=== PATIENT | male | born 1995 | race Caucasian/White ===

== ENCOUNTER 2024-08-03 03:45 | Observation (INO) | payer OTHER, SELFPAY ==
[2024-08-03] VITALS (29 sets, daily range): BP systolic 130–157; BP diastolic 81–103; PULSE 46–81; TEMP 36.3–36.7; O2SAT 89–96; BMI 33.9; BMI 34.7
--- NOTE | 2024-08-03 04:09 | ECG_ITS ---
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 Measurements Intervals Trade Rate: 75 P: 63 VT: 148 QRS: 85 QRSD: 100 T: 58 QT: 382 QTc: 411 Interpretive Statements 1100 Sinus rhythm 9110 normal ECG No previous ECG available for comparison Electronically Signed On 08-03-2024 19:57:46 EDT by YADIRA TORO M.D.
[2024-08-03] MEDS: FENTANYL CITRATE/PF 100 MCG/2 ML VIAL IV (04:25)
--- NOTE | 2024-08-03 04:27 | ED_ITS ---
HPI HPI - Back Pain/Injury General Chief Complaint: Back Pain/Injury Stated Complaint: BACK PAIN Time Seen by Provider: 08/03/24 04:04 Source: patient Mode of arrival: walk-in Limitations: no limitations History of Present Illness HPI Narrative: presents complaining of left sided posterior back pain. states present for a couple of weeks. Increased pain this AM. Pain worsens with cough. cough occ productive of thick phlegm. No fever or anterior chest pain. No abdominal pain or nausea. RA pulse ox 89%. Related Data Allergies Allergy/AdvReac Type Severity Reaction Status Date / Time No Known Drug Allergies Allergy Verified 08/03/24 03:57 Opioid HPI Opioid Management Most Recent Opioid Data: 2 No Data to Display Review of Systems 2 ROS0 Status of ROS 10 or more systems reviewed and unremark able except as noted in history and below PFSH PFSH Social History Little interest or pleasure in doing things: not at all Feeling down, depressed, or hopeless: not at all Exam Constitutional Vital Signs, click to edit/add: Last Vital Signs Temp 97.9 F 08/03/24 03:51 Pulse 62 08/03/24 06:00 Resp 21 H 08/03/24 06:00 BP 157/103 H 08/03/24 03:51 Pulse Ox 95 08/03/24 06:00 O2 Del Method Room Air 08/03/24 04:23 Common normals: average body habitus, oriented x3, healthy appearing, alert and well nourished Other: mild to mod. distress related to pain of his back HENNM Common normals: normocephalic and head/scalp atraumatic Eye Common normals: PERRL, EOMs intact bilaterally and conjunctivae normal Chest Common normals: inspection of chest normal and palpation of chest normal Respiratory Common normals: normal respiratory effort, no retractions and no use of accessory muscles Cardio Common normals: regular rate, regular rhythm, S1 normal heart sound and S2 normal heart sound GI Common normals: Normal to inspection, nondistended, normoactive bowel sounds present, soft to palpation and non-tender Back & Pelvis Back image (male): 2 1. tender Extremity Common normals: normal to inspection and full ROM Neuro Common normals: oriented x3, CN's II-XII intact bilaterally, moves all extremities and no focal motor deficits Psych Appearance: grossly normal Course Vital Signs Vital signs: Vital Signs Temperature 97.9 F 08/03/24 03:51 Pulse Rate 81 08/03/24 03:51 Respiratory Rate 20 08/03/24 03:51 Blood Pressure 157/103 H 08/03/24 03:51 Pulse Oximetry 89 L 08/03/24 03:51 Oxygen Delivery Method Room Air 08/03/24 03:51 Temperature 97.9 F 08/03/24 03:51 Pulse Rate 62 08/03/24 06:00 Respiratory Rate 21 H 08/03/24 06:00 Blood Pressure 157/103 H 08/03/24 03:51 Pulse Oximetry 95 08/03/24 06:00 Oxygen Delivery Method Room Air 08/03/24 04:23 MDM - Back Pain/Injury MDM Narrative Medical decision making narrative: patient presents with atypical pain of his left posterior rib cage. Ongoing for 2 weeks but worse this AM. Denies injury. Feels like a Charliehorse cramp in his back. Frequent cough occ productive of thick phlegm. no fever. left posterior chest wall is tender. Pain is also positional. CTA chest neg. and CT abd/pelvis without acute findings. Patient's pulse ox registered at 89% on arrival and he was placed on now d/rajan and patient monitored. Pain improved after dilaudid. patient is still not able to move because of the pain. Did try to have him get of the stretcher and stand but he couldn't do so because of the pain Discussed with hospitalist Dr Avila and she has accepted admission and would like to add a urine drug screen Lab Data Labs: Lab Results 08/03/24 Range/Units 04:05 WBC 10.9 (4.0-11.0) 10^3/uL RBC 5.98 (4.70-6.10) 10^6/uL Hgb 18.6 H (14.0-18.0) g/dL Hct 53.9 (42.0-54.0) % MCV 90.1 (80.0-94.0) fL MCH 31.1 (25.9-34.0) pg MCHC 34.5 (29.9-35.2) g/dL RDW 11.9 (11.0-15.0) % Plt Count 233 (150-450) 10^3/uL MPV 10.9 (9.5-13.5) fL Neut % (Auto) 56.4 (43.0-75.0) % Lymph % (Auto) 30.4 (20.5-60.0) % Saunders % (Auto) 10.4 (1.7-12.0) % Eos % (Auto) 1.6 (0.9-7.0) % Baso % (Auto) 0.8 (0.2-2.0) % Neut # (Auto) 6.1 (1.4-6.5) 10^3/uL Lymph # (Auto) 3.3 (1.2-3.8) 10^3/uL Saunders # (Auto) 1.1 H (0.3-0.8) 10^3/uL Eos # (Auto) 0.2 (0.0-0.7) 10^3/uL Baso # (Auto) 0.1 (0.0-0.1) 10^3/uL Abs Immat Gran (auto) 0.04 H (0.00-0.03) 10^3/uL Imm/Tot Granulo (auto) 0.4 (0.0-0.5) % Sodium 137 (136-145) mmol/L Potassium 3.8 (3.5-5.1) mmol/L Chloride 101 (98-107) mmol/L Carbon Dioxide 23.2 (21.0-32.0) mmol/L Anion Gap 16.6 BUN 5.0 L (7.0-18.0) mg/dL Creatinine 0.97 (0.70-1.30) mg/dL Est GFR ( Amer) >60 (>=60 mL/min/1.73m^2) Est GFR (Non-Af Amer) >60 (>=60 mL/min/1.73m^2) BUN/Creatinine Ratio 5.2 Glucose 155 H (74-106) mg/dL Lactate 1.9 (0.4-2.0) mmol/L Calcium 9.7 (8.5-10.1) mg/dL Total Bilirubin 0.4 (0.2-1.0) mg/dL AST 21 (15-37) U/L ALT 38 (16-63) U/L Alkaline Phosphatase 111 (46-116) U/L Troponin I High Sens 6.1 (4.0-76.1) pg/mL Total Protein 8.2 (6.4-8.2) g/dL Albumin 3.8 (3.4-5.0) g/dL Globulin 4.4 g/dL Albumin/Globulin Ratio 0.9 Lipase 32.0 (16.0-77.0) U/L Discharge Plan Discharge Chief Complaint: Back Pain/Injury Clinical Impression: Intractable back pain Patient Disposition: Admitted as Observation Print Language: Ecuadorean Referrals: Physician,Non-Staff, MD [Primary Care Provider] - 1 week
[2024-08-03 04:35] LABS: Basophils Absolute Auto 0.1 10^3/uL (0.0-0.1); Basophils Percent Auto 0.8 % (0.2-2.0); Eosinophils Absolute Auto 0.2 10^3/uL (0.0-0.7); Eosinophils Percent Auto 1.6 % (0.9-7.0); Hematocrit 53.9 % (42.0-54.0); Hemoglobin 18.6 g/dL (14.0-18.0); Immature Granulocytes Abs Auto 0.04 10^3/uL (0.00-0.03); Immature Granulocytes Pct Auto 0.4 % (0.0-0.5); Lymphocytes Absolute Auto 3.3 10^3/uL (1.2-3.8); Lymphocytes Percent Auto 30.4 % (20.5-60.0); Mean Corpuscular HGB Conc 34.5 g/dL (29.9-35.2); Mean Corpuscular Hemoglobin 31.1 pg (25.9-34.0); Mean Corpuscular Volume 90.1 fL (80.0-94.0); Mean Platelet Volume 10.9 fL (9.5-13.5); Monocytes Absolute Auto 1.1 10^3/uL (0.3-0.8); Monocytes Percent Auto 10.4 % (1.7-12.0); Neutrophils Absolute Auto 6.1 10^3/uL (1.4-6.5); Neutrophils Percent Auto 56.4 % (43.0-75.0); Platelet Count 233 10^3/uL (150-450); Red Blood Count 5.98 10^6/uL (4.70-6.10); Red Cell Distribution Width 11.9 % (11.0-15.0); White Blood Count 10.9 10^3/uL (4.0-11.0)
[2024-08-03 04:51] LABS: Anion Gap 16.6
[2024-08-03 04:53] LABS: Alanine Aminotransferase 38 U/L (16-63); Albumin Globulin Ratio 0.9; Albumin Level 3.8 g/dL (3.4-5.0); Alkaline Phosphatase 111 U/L (46-116); Aspartate Amino Transferase 21 U/L (15-37); BUN Creatinine Ratio 5.2; Bilirubin Total 0.4 mg/dL (0.2-1.0); Calcium 9.7 mg/dL (8.5-10.1); Carbon Dioxide 23.2 mmol/L (21.0-32.0); Chloride 101 mmol/L (98-107); Estimated GFR (African America >60 (>=60 mL/min/1.73m^2); Estimated GFR (Non-African Ame >60 (>=60 mL/min/1.73m^2); Globulin 4.4 g/dL; Glucose 155 mg/dL (74-106); Lactate/Lactic Acid 1.9 mmol/L (0.4-2.0); Potassium 3.8 mmol/L (3.5-5.1); Sodium 137 mmol/L (136-145); Total Protein 8.2 g/dL (6.4-8.2); Troponin I High Sensitivity 6.1 pg/mL (4.0-76.1)
[2024-08-03] MEDS: HYDROMORPHONE HCL 1 MG/ML CARTRIDGE IV (05:15)
[2024-08-03 07:28] LABS: Bilirubin Urine NEGATIVE (NEGATIVE); Blood Urine NEGATIVE (NEGATIVE); Clarity Urine CLEAR (CLEAR); Color Urine YELLOW (YELLOW); Glucose Urine UA NEGATIVE (NEGATIVE); Ketones Urine NEGATIVE (NEGATIVE); Leukocyte Esterase Urine NEGATIVE (NEGATIVE); Nitrite Urine NEGATIVE (NEGATIVE); Protein Urine TRACE mg/dL (NEG/TRACE); Urobilinogen Urine 0.2 EU/dL (0.2-1.0)
[2024-08-03 07:40] LABS: Bacteria Urine TRACE #/HPF (NONE SEEN); Cast Seen? NONE SEEN #/LPF (NONE SEEN); Crystals Seen? None Seen #/HPF (None Seen); Mucus Urine NONE SEEN (NONE SEEN); RBC Urine NONE SEEN #/HPF (0-2); Squamous Epithelial Cell Urine RARE #/LPF (NONE/RARE); Urine Culture Indicated NO; WBC Urine NONE SEEN #/HPF (NONE SEEN)
[2024-08-03 07:44] LABS: Cannabinoid Screen Urine POSITIVE (NEGATIVE); Cocaine Screen Urine NEGATIVE (NEGATIVE); Methamphetamines Screen Urine NEGATIVE (NEGATIVE); Opiate Screen Urine POSITIVE (NEGATIVE); Phencyclidine Screen Urine NEGATIVE (NEGATIVE)
[2024-08-03 07:45] LABS: Amphetamine Screen Urine NEGATIVE (NEGATIVE); Barbiturates Screen Urine NEGATIVE (NEGATIVE); Benzodiazepines Screen Urine NEGATIVE (NEGATIVE); Buprenorphine Screen Urine NEGATIVE (NEGATIVE); Methadone Screen Urine NEGATIVE (NEGATIVE); Oxycodone Screen Urine POSITIVE (NEGATIVE); Tricyclic Antidepressant Urine NEGATIVE (NEGATIVE)
--- NOTE | 2024-08-03 08:52 | P.HP_ITS ---
HPI H&P: HPI History of Present Illness Chief complaint: BACK PAIN Narrative: Patient is a 28 y.o male with past medical history smoking 1ppd, Gout and recent right hand surgery who presented to the ER today with left back/rib/side pain. Patient states he had a traumatic amputation of the tip of his 3rd digit and 5th digit of this right hand at [facility] about 1 month ago after accidental trauma from a table saw. He has been attending follow up's with the hand surgeon at [facility] and has been on Oxycodone since surgery. It appears they have been weaning him down slowly and now has been taking 5mg q12 hours. 2 weeks ago he started coughing and noticed a pain in the left side of his back that would come and go. Last night he coughed and felt a pop and the pain in his left side was so bad he had to come to the ER. Patient was given Fentanyl and Dilaudid. He had CTA of the chest and CT of the abdomen/pelvis which showed no acute processes. WBC's 10.9, hb 18.6, cr 0.97, trop 6.1, ESR 11, CRP normal Uric Acid 11.3. UA normal, UDS positive for oxycodone and THC. His pain could not be controlled in the ER so they requested he be admitted for intractable pain. Patient's brother and mother are present at the time of admission. he denies trauma to his back. recent cold symptoms and a cough which is when he has the most pain is with coughing. No shortness of breath, no fever or chills, no rashes. Pain is located Left lateral ribs 7-10. Quality: Safe Use of Opioids Is the patient undergoing opioid medication assisted treatment that includes methadone, buprenorphine, and/or naltrexone: No Opioid HPI Opioid Management Most Recent Pain and Opioid Data: Last Pain Scale 9 08/03/24 10:17 08/03/24 Last Pain Assessment 08/03/24 10:00 Last MAR Pain Assessment 08/03/24 10:17 Ur Phencyclidine Scrn Negative (NEGATIVE) 08/03/24 07:11 0412/20 Review of Systems ROS Narrative ROS: a complete review of systems were reviewed with patient and are positive as below or listed in History of Chief Complaint. General: no fever, chills, night sweats Head: no headache, trauma, visual changes, nausea or vomiting Skin: no reported rashes, itching or sores Eyes: no blurriness of vision Ears: no reported hearing loss, vertigo, earache, or tinnitus Throat: no sore throat, hoarseness, swelling of neck, or tongue pain Heart: no chest pain Lungs: no shortness of breath but cough GI: no diarrhea or vomiting/nausea Urinary: no urinary urgency, frequency or pain Neuro: no numbness or tingling HEM: no bleeding issues or bruising ENDO: no thyroid problems Psych: no anxiety or depression PFSH PFS Medical History (Updated 08/03/24 @ 08:56 by Maria Teresa Avila DO) Gout ?M10.9 - Gout, unspecified (ICD-10) Finger amputation, traumatic ?S68.119A - Complete traumatic metacarpophalangeal amputation of unspecified finger, initial encounter (ICD-10) Hypertension ?I10 - Essential (primary) hypertension (ICD-10) Social History Little interest or pleasure in doing things: not at all Feeling down, depressed, or hopeless: not at all Meds Home Medications and Allergies Home Medications ?Medication ?Instructions ?Recorded ?Confirmed ?Type allopurinol 100 mg tablet 100 mg PO DAILY 08/03/24 History gabapentin 300 mg capsule 300 mg PO TID 08/03/24 History ibuprofen 800 mg tablet 800 mg PO Q8H PRN pain 08/03/24 History lisinopril 30 mg tablet 30 mg PO DAILY 08/03/24 History oxycodone 5 mg tablet 5 mg PO Q12H PRN pain 08/03/24 08/03/24 History Allergies Allergy/AdvReac Type Severity Reaction Status Date / Time No Known Drug Allergies Allergy Verified 08/03/24 03:57 Exam Narrative Exam Narrative: General: Patient is alert, and oriented to person, place and time but appears in some distress due to pain Skin: no visible rashes, or ulcers Head: atraumatic, acephalic Eyes: PERRLA, no nystagmus present, conjunctiva clear, no scleral icterus Ears: normal gross auditory acuity Heart: Normal rate and rhythm, no murmurs/rubs/gallops Lungs: no audible wheezes, crackles and normal breath sounds all lung briones; pain is reproducible with palpation of the left trap/lat and lateral ribs 7-10 Abdomen: Normal audible bowel sounds, no distension, No palpable masses, no organomegaly, no rebound/guarding/ or rigidity Musculoskeletal:no swelling bilateral lower extremities Neuro: CN II-X grossly intact Constitutional Vital Signs, click to edit/add: Last Vital Signs Temp 97.9 F 08/03/24 03:51 Pulse 50 L 08/03/24 08:06 Resp 18 08/03/24 08:06 BP 149/93 H 08/03/24 08:06 Pulse Ox 95 08/03/24 08:06 O2 Del Method Nasal Cannula 08/03/24 08:33 O2 Flow Rate 2 08/03/24 08:06 Results Labs Labs: Short CBC 08/03/24 Range/Units 04:05 WBC 10.9 (4.0-11.0) 10^3/uL Hgb 18.6 H (14.0-18.0) g/dL Hct 53.9 (42.0-54.0) % Plt Count 233 (150-450) 10^3/uL BMP 08/03/24 04:05 Sodium 137 Potassium 3.8 Chloride 101 Carbon Dioxide 23.2 BUN 5.0 L Creatinine 0.97 Glucose 155 H Calcium 9.7 Liver Function 08/03/24 Range/Units 04:05 Total Bilirubin 0.4 (0.2-1.0) mg/dL AST 21 (15-37) U/L ALT 38 (16-63) U/L Alkaline Phosphatase 111 (46-116) U/L Albumin 3.8 (3.4-5.0) g/dL Urine 08/03/24 Range/Units 07:11 Urine Color Yellow (YELLOW) Urine Clarity Clear (CLEAR) Urine pH 5.0 (5.0-9.0) Ur Specific [place] 1.010 (1.005-1.025) Urine Protein Trace (NEG/TRACE) mg/dL Urine Glucose (UA) Negative (NEGATIVE) mg/dL Assessment and Plan Assessment and Plan (1) Intractable back pain: Assessment and Plan: Will check chest x-ray with dedicated left ribs Xray. Lidocaine patch applied, start Flexeril, Solumedrol 60mg q8 hours and Given IV Toradol 30mg x 1. He received Fentanyl and Dilaudid in the ER. I have also scheduled his oxycodone. I discussed with patient normal findings of CT and think his pain is most likely musculoskeletal or costochondral in nature. His pain tolerance is lower and need for medication higher given Narcotic use. PT eval once pain is better under control. (2) Hypertension: Assessment and Plan: monitor, will restart lisinopril if needed. Qualifiers: Hypertension type: primary hypertension Qualified Code(s): I10 - Essential (primary) hypertension (3) Gout: Assessment and Plan: only takes allopurinol with flare. Normal ESR and CRP, uric acid 11.3; steroids should help this as well. Qualifiers: Chronicity: chronic Gout etiology: unspecified cause Gout site: unspecified site Presence of tophus: without tophus Qualified Code(s): M1A.9XX0 - Chronic gout, unspecified, without tophus (tophi) Plan Patient is a full code Patient is observation status and expected to stay 1-2 days to treat his pain
[2024-08-03 09:09] LABS: C Reactive Protein <0.50 mg/dL (<=0.50); Uric Acid 11.3 mg/dL (3.5-7.2)
[2024-08-03 09:19] LABS: Erythrocyte Sedimentation Rate 11 mm/hr (<=15)
[2024-08-03] MEDS: LACTATED RINGER'S SOLUTION 1,000 ML 125 ML IV (10:16)
[2024-08-03] MEDS: LIDOCAINE 5% PATCH 1 PATCH TOPICAL (10:16)
[2024-08-03] MEDS: KETOROLAC TROMETHAMINE 30 MG/ML VIAL IVP ×2 (10:17→16:30)
[2024-08-03] MEDS: CYCLOBENZAPRINE HCL 10 MG TABLET PO (10:17)
[2024-08-03] MEDS: ACETAMINOPHEN 500 MG TABLET 1000 MG PO ×2 (10:17→19:54)
--- NOTE | 2024-08-03 11:31 | CM.NOTE ---
Rounds made with Dr. Avila. Dr. Avila reviews labs/Radiology findings. Discusses plan of care. No discharge today.
[2024-08-03] MEDS: OXYCODONE HCL 5 MG TABLET PO ×2 (12:14→23:11)
[2024-08-03] MEDS: METHYLPREDNISOLONE SOD SUCC PF 40 MG/ML VIAL IVP ×3 (12:14→23:10)
[2024-08-03] MEDS: ORPHENADRINE 60 MG/2 ML VIAL IV ×2 (13:32→23:11)
[2024-08-03] MEDS: BENZONATATE 100 MG CAPSULE PO ×2 (13:32→23:11)
--- NOTE | 2024-08-03 15:00 | SWNOTE1 ---
Physical therapy eval on hold today. SW to check tomorrow and assess for any needs for patient.
[2024-08-03] MEDS: AZITHROMYCIN 500 MG in 0.9 % SODIUM CHLORIDE 250 ML 250 MG IV (16:30)
--- NOTE | 2024-08-03 18:46 | PC.NURSE ---
patient sitting up in bed eating his dinner. no signs of distress at this time.
[2024-08-03] MEDS: NICOTINE 21 MG PATCH.TD24 TD (20:35)
[2024-08-04 04:00] VITALS: BP 135/85; PULSE 43; TEMP 36.3; O2SAT 94
[2024-08-04] MEDS: KETOROLAC TROMETHAMINE 30 MG/ML VIAL IVP ×2 (04:12→13:08)
[2024-08-04] MEDS: METHYLPREDNISOLONE SOD SUCC PF 40 MG/ML VIAL IVP ×2 (05:26→11:36)
[2024-08-04 07:37] VITALS: BP 140/86; PULSE 43; TEMP 37; O2SAT 92
[2024-08-04] MEDS: LIDOCAINE 5% PATCH 1 PATCH TOPICAL (08:09)
--- NOTE | 2024-08-04 08:09 | P.DS_ITS ---
DS: Providers Provider Date of admission: 08/03/24 08:23 Primary care physician: Non-Staff PhysicianMD Attending physician on admission: Maria Teresa Avila Consults: 08/03/24 11:03 Physical Therapy Eval and Treat Routine Reason for consultation: left back/rib pain/ muscle spasm Has provider been notified: Yes Discharging clinician: Maria Teresa Avila DS: Diagnosis Discharge Diagnosis (1) Intractable back pain: (2) Acute bronchitis: Qualifiers: Bronchitis organism: unspecified organism Qualified Code(s): J20.9 - Acute bronchitis, unspecified (3) Hypertension: Qualifiers: Hypertension type: primary hypertension Qualified Code(s): I10 - Essential (primary) hypertension (4) Gout: Qualifiers: Chronicity: chronic Gout etiology: unspecified cause Gout site: unspecified site Presence of tophus: without tophus Qualified Code(s): M1A.9XX0 - Chronic gout, unspecified, without tophus (tophi) DS: Summary Hospital Course Hospital Course: Patient is a 28 y.o male with past medical history smoking 1ppd, Gout and recent right hand surgery who presented to the ER with left back/rib/side pain. Patient states he had a traumatic amputation of the tip of his 3rd digit and 5th digit of this right hand at [facility] about 1 month ago after accidental trauma from a table saw. He has been attending follow up's with the hand surgeon at [facility] and has been on Oxycodone since surgery. It appears they have been weaning him down slowly and now has been taking 5mg q12 hours. 2 weeks ago he started coughing and noticed a pain in the left side of his back that would come and go. Last night he coughed and felt a pop and the pain in his left side was so bad he had to come to the ER. Patient was given Fentanyl and Dilaudid. He had CTA of the chest and CT of the abdomen/pelvis which showed no acute processes. WBC's 10.9, hb 18.6, cr 0.97, trop 6.1, ESR 11, CRP normal Uric Acid 11.3. UA normal, UDS positive for oxycodone and THC. His pain could not be controlled in the ER so they requested he be admitted for intractable pain. he denies trauma to his back. recent cold symptoms and a cough which is when he has the most pain is with coughing. No shortness of breath, no fever or chills, no rashes. Pain is located Left lateral ribs 7-10. X-ray chest some possible inflammatory vs infectious markings but rib films negative for acute fracture. Patient was treated with Toradol IV, Flexeril but didn't work so this was stopped, IV Norflex given, Lidocaine patch. Ice packs and Kpad. I also treated his bronchitis with Solumedrol IV, Azithromycin, Tessalon and Robitussin for cough. repeat labs this morning were stable, troponin negative. WBC elevated due to steriod use. I have prescribed him Rx for outpatient PT. He may use ice and warm compresses to the area. I have prescribed Baclofen, medrol dosepack and Zpak. Along with promethazine/DM for cough. He has appointment made with Dr. Pastor as outpatient. His pain is improved but not completely resolved as I would expect. It should continue to improve over the next 1-2 weeks. Most likely diagnosis is Musculoskeletal pain/spasm/costochondritis from cough. Patient may return to the ER with any worsening signs or symptoms. Vitals stable, afebrile. Status at Discharge Functional status at discharge: independent ambulation Overall status at discharge: patient is progressing back to baseline Time Spent with Patient Time attestation: Total time spent providing and/or coordinating discharge services: Time spent: greater than 30 minutes Exam Narrative Exam Narrative: General: Patient is alert, and oriented to person, place and time Skin: no visible rashes, or ulcers Head: atraumatic, acephalic Eyes: PERRLA, no nystagmus present, conjunctiva clear, no scleral icterus Ears: normal gross auditory acuity Heart: Normal rate and rhythm, no murmurs/rubs/gallops Lungs: no audible wheezes, crackles and normal breath sounds all lung briones; pain is reproducible with palpation of the left trap/lat and lateral ribs 7-10 Abdomen: Normal audible bowel sounds, no distension, No palpable masses, no organomegaly, no rebound/guarding/ or rigidity Musculoskeletal:no swelling bilateral lower extremities Neuro: CN II-X grossly intact Constitutional Vital Signs, click to edit/add: Last Vital Signs Temp 98.6 F 08/04/24 07:37 Pulse 43 L 08/04/24 07:37 Resp 14 04/09/25 07:37 BP 140/86 08/04/24 07:37 Pulse Ox 92 L 08/04/24 07:37 O2 Del Method Room Air 08/04/24 07:37 O2 Flow Rate 2 08/03/24 09:20 DS: Data Data Completed and Pending Labs on day of discharge: Labs from last 24 hours 08/03/24 04:05 ESR 11 Uric Acid 11.3 H C-Reactive Protein <0.50 Discharge Plan Discharge Disposition: Home, Self-Care Condition: Fair Discharge Medications: New azithromycin [Zithromax Z-Pee] 250 mg tablet See Rx Instructions .ROUTE .COMPLEX Qty: 6 0RF Rx Instructions: For 250 mg dose pack: take 500 mg today (day 1), then 250 mg for 4 days (days 2-5) methylprednisolone [Medrol (Pee)] 4 mg tablets,dose pack 4 mg PO .as directed Qty: 21 0RF Rx Instructions: Take dosepak as directed on package promethazine-DM 6.25-15 mg/5 mL syrup 5 ml PO Q6H PRN (Reason: cough) 5 Days Qty: 100 0RF baclofen 10 mg tablet 10 mg PO Q8H 5 Days Qty: 15 0RF Continued allopurinol 100 mg tablet 100 mg PO DAILY lisinopril 30 mg tablet 30 mg PO DAILY gabapentin 300 mg capsule 300 mg PO TID oxycodone 5 mg tablet 5 mg PO Q12H PRN (Reason: pain) Held ibuprofen 800 mg tablet 800 mg PO Q8H PRN (Reason: pain) Hold Instructions: Resume on 08/11/24. Activity: increase activity as tolerated Activity Detail: May alternate ice/heat to the sore area on back; I have provided written Prescription for Physical Therapy Diet: advance to your usual diet Print Language: Swedish Patient Instructions: Back Pain (GEN) Forms: Portal Instructions Follow Up Appointments: August 11 @ 11:15am with Dr. Pastor [address] [facility] [phone]
[2024-08-04] MEDS: ORPHENADRINE 60 MG/2 ML VIAL IV (08:17)
[2024-08-04 08:19] LABS: Basophils Percent Auto 0.2 % (0.2-2.0); Hematocrit 54.5 % (42.0-54.0); Hemoglobin 18.6 g/dL (14.0-18.0); Immature Granulocytes Abs Auto 0.05 10^3/uL (0.00-0.03); Immature Granulocytes Pct Auto 0.3 % (0.0-0.5); Lymphocytes Absolute Auto 0.9 10^3/uL (1.2-3.8); Lymphocytes Percent Auto 5.6 % (20.5-60.0); Mean Corpuscular HGB Conc 34.1 g/dL (29.9-35.2); Mean Corpuscular Hemoglobin 31.5 pg (25.9-34.0); Mean Corpuscular Volume 92.4 fL (80.0-94.0); Monocytes Absolute Auto 0.4 10^3/uL (0.3-0.8); Monocytes Percent Auto 2.7 % (1.7-12.0); Neutrophils Percent Auto 91.2 % (43.0-75.0); Platelet Count 222 10^3/uL (150-450); Red Cell Distribution Width 11.7 % (11.0-15.0); White Blood Count 15.4 10^3/uL (4.0-11.0)
[2024-08-04 08:36] LABS: Alanine Aminotransferase 28 U/L (16-63); Albumin Globulin Ratio 0.9; Albumin Level 3.5 g/dL (3.4-5.0); Alkaline Phosphatase 97 U/L (46-116); Anion Gap 11.1; Aspartate Amino Transferase 14 U/L (15-37); BUN Creatinine Ratio 12.6; Bilirubin Total 0.7 mg/dL (0.2-1.0); Calcium 9.7 mg/dL (8.5-10.1); Chloride 103 mmol/L (98-107); Estimated GFR (African America >60 (>=60 mL/min/1.73m^2); Estimated GFR (Non-African Ame >60 (>=60 mL/min/1.73m^2); Globulin 4.1 g/dL; Glucose 219 mg/dL (74-106); Potassium 4.1 mmol/L (3.5-5.1); Sodium 140 mmol/L (136-145); Total Protein 7.6 g/dL (6.4-8.2); Troponin I High Sensitivity <4.0 pg/mL (4.0-76.1)
--- NOTE | 2024-08-04 10:37 | CM.NOTE ---
Rounds made with Dr. Avila, education provided regarding lab work and admission diagnosis. Pt will discharge to home today and provided with Physical therapy order for outpatient therapy for ongoing back pain.
[2024-08-04 11:32] VITALS: O2SAT 93
[2024-08-04 11:47] VITALS: BP 155/81; PULSE 62; TEMP 36.5; O2SAT 96
[2024-08-04] MEDS: OXYCODONE HCL 5 MG TABLET PO (12:00)
--- NOTE | 2024-08-05 16:07 | CM.DCFOLLOWU ---
Person spoke with: patient How are you feeling? in a lot of pain How is your pain? in a lot of pain Did you understand your discharge instructions? yes Do you have any questions about your discharge instructions? no Were you given any prescriptions at discharge?yes Were you able to get your prescriptions filled?yes Do you understand how to take your medications as ordered? yes, voiced he was not discharged on anything for pain. Advised to call Dr. Pastor's office to see if they can move up his follow up apt. Advised to come to ED if pain becomes worse Do you have any questions about your follow up appointment and do you plan to keep your follow up appointment? no questions, follow up reviewed Is there anything else that you would like to discuss?no Questions/Comments/Concerns/Other:none
== END 2024-08-04 13:47 | disposition home or self-care (01) ==
LOC: ER 08:36 → MS 08:38
PROVIDERS: Internal Medicine; Admitting Provider Family Medicine; Emergency Provider Emergency Medicine; Visit Provider Family Medicine
DX: M54.9 Dorsalgia, unspecified (principal); J20.9 Acute bronchitis, unspecified; F17.210 Nicotine dependence, cigarettes, uncomplicated; R05.9 Cough, unspecified; I10 Essential (primary) hypertension; M1A.9XX0 Chronic gout, unspecified, without tophus (tophi); Z89.021 Acquired absence of right finger(s); Z79.899 Other long term (current) drug therapy
CPT/HCPCS: 36415; 71101; 71275; 74177; 80053; 80307; 81001; 83605; 83690; 84484; 84550; 85025; 85652; 86140; 93005; 94761; 96365; 96366; 96375; 96376; 97161; 99285; 99406; G0378; J0456; J1171; J1885; J2360; J2919; J3010; Q9967

== ENCOUNTER 2024-10-22 19:41 | Emergency (ER) | payer OTHER, SELFPAY ==
--- OUTSIDE RECORDS SUMMARY | 2024-10-22 19:45 | XMS_ITS | Patient Health Record ---
Author Organization [facility] [place] Address [address] [place] [address] Care Team Providers Care Precision Instrument Maker Name Role Phone Serjio Pastor Primary Care Provider [phone] Reason For Referral No Information Problems Problem Type SNOMED Code ICD Code Onset Dates Problem Status W/U Status Risk Notes Problem Hypertension (06538077) Hypertension (I10) Active confirmed Problem Gout (81229714) Gout (M10.9) Active confirmed Plan Of Treatment No Information Insurance Providers Payer Name Payer Address Payer Phone Subscriber Number Group Number Insured Name Patient Relationship to Insured Coverage Start Date Coverage End Date O [address] [place], [place] [id number] STAN CASIANO Self - patient is the insured
--- OUTSIDE RECORDS SUMMARY | 2024-10-22 19:46 | XMS_ITS | CCD ---
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 finger, initial encounter [S68.119A] * Hand laceration involving tendon, right, subsequent encounter [S61.411D, S66.921D] Postoperative Diagnosis: * Traumatic amputation of finger, initial encounter [S68.119A] * Hand laceration involving tendon, right, subsequent encounter [S61.411D, S66.921D] Procedures: Right small finger hardware removal Surgeon(s): Surgeon(s): Cely Puente MD Staff: Scrub: Maryam Mao Manager Dental Nurse: Lidya Williamson RN Brewmaster: Emelina Diego DO; Cristopher Kaur DMD, MD Anesthesia: Consult Anesthesiologist: Salinas Saldaña MD SALES SUPPORT ENGINEER: Jessica Aguilar APRN-CRNA Anesthesia Student: Carolina Tamez Specimen(s): * No specimens in log * Estimated Blood Loss: less than 5 cc Lines/Drains: Peripheral IV Access: 07/23/24 1249 22 gauge Left;Posterior Hand (Active) Site Assessment WNL;Dressing intact 07/23/24 1249 Infusion Status Port #1 Capped;Patent;Positi ve blood return 07/23/24 1249 Temporarily Retained Foreign Object: No Location: Object: Anticipated removal date: Findings: Normal Complications: None Status at end of surgery: Stable Activity: Ad Jesica Surgical wound class: Yes, wound was clean. Patient Class: Outpatient Surgery. Is this a patient scheduled as an outpatient that needs to be admitted as an inpatient? No Dr. Puente was present in the OR for the critical portion of the procedure and procedure sign-out. Signed by Emelina Diego DO 07/23/2024 2:21 PM Normal [facility] OP Noteon 07-23-2024 French Translator Authentication Interface Message Text OPERATIVE NOTE Plastic Surgery Name: Tu Casiano CSN: [id number] Surgical Age: [age] year old Date of : 1995 Date of Surgery: 07/23/2024 Case Length: 0 Hr 21 Min 52 Sec Event Time In In Facility 1217 In Pre-op 1223 Surgeon Available 1250 Pre-op Nursing Complete 1245 Out of Pre-op Setup Start 1344 Setup End 1344 In Room 1400 Anesthesia Start 1400 Anesthesia Release 1408 Anesthesia Extubation Procedure Start 1413 Procedure Closing 1419 Procedure End 1420 Out of Room 1421 Cleanup Start Cleanup Complete OR Recovery Start In PACU I Anesthesia Finish 1421 PACU Boarder Start Out of PACU I In PACU II Out of PACU II Procedural Care Complete Surgeon(s): Primary: Cely Puente MD Plaster Foreman Surgeon: Scrub: Maryam Mao Manager Dental Nurse: Lidya Williamson RN Brewmaster: Emelina Diego DO; Cristopher Kaur DMD, MD Pre-Op Diagnosis: Pre-op Diagnosis * Traumatic amputation of finger, initial encounter [S68.119A] * Hand laceration involving tendon, right, subsequent encounter [S61.411D, S66.921D] Post-op Diagnosis * Traumatic amputation of finger, initial encounter [S68.119A] * Hand laceration involving tendon, right, subsequent encounter [S61.411D, S66.926W] Post Op Diagnosis: Same as preoperative diagnosis. Procedure(s): Surgical CPTs Procedures REMOVAL, IMPLANT; DEEP Right small finger hardware removal Implants: * No implants in log * Anesthesia: Sedation, local anesthetics Indication for Procedure: Patient is a 28 year old male with history of traumatic saw injury to the right hand requiring right long finger DIP revision amputation, and right small finger internal fixation with five total K-wires on 06/09/24. Patient has been having significant pain of his right small finger, requiring narcotic pain medication. Presenting today for hardware removal. Description of Procedure: The patient was met in the preoperative holding area, where risks, benefits and alternatives of the procedure were discussed. The patient expressed understanding and elected to proceed with the planned procedure. Patient was transferred to the operative theater where he was positioned in the supine position. Sedation by anesthesia was induced without difficulty. Patient was subsequently prepped with Hibiclens and draped in the usual sterile fashion. A final surgical time-out was performed prior to incision, to confirm correct patient, procedure, and surgical site. Attention was turned to the right small finger. Two of the K-wires were protruding out from the proximal phalanx, which were removed without resistance. X-ray was taken to confirm the location of the last K-wire in the small finger. It was accessed from the distal phalanx over the dorsum by making a small puncture incision, and removed without resistance. X-ray was taken again to confirm that no hardware remained in the small finger. 6cc of 0.5% marcaine was used for a digital block of the right small finger. At the conclusion of the procedure, the patient was awakened from anesthesia without difficulty. he was then transported to the PACU in stable condition. All instrument and sponge counts were correct. Findings: Total of 3 K-wires removed. Specimen(s): None * No specimens in log * Estimated blood loss: 0 cc IV Fluids: 0 cc Urine Output: N/A Drains: None Complications: None Patient Class: Outpatient Surgery Wound Class: Yes, wound was clean. Clean Clean-contaminated (lack unusual contamination; enter respiratory, GI, , genital tracts, but under controlled conditions) Contaminated (open, fresh, accidental wounds; break in sterile technique or gross spillage from GI tract, or an incision in which acute, non-purulent inflammation is encountered) Dirty-Infected (secondary to improperly cared for traumatic wounds; devitalized tissue; purulent drainage) Status at end of surgery: Stable The Attending Surgeon Dr. Puente was present for all critical parts of the procedure. Emelina Diego, DO Normal [facility] PAT Call Historyon French Translator Authentication Interface Message Text Telephone History Tu Casiano, [id number] 07/22/2024 Patient was identified by name and date of . Needs: Physical, Neck Circumference, and Stop bang 3, consider EKG on DOS. If the patient becomes ill prior to procedure or surgery, they are to call their provider or surgeon's office directly. Jadyn Russell RN 28 year old 245 lbs 6' 0 Date of Surgery: 07/23/24 Surgeon: Rica Type of Surgery: REMOVAL, HARDWARE, HAND Right HISTORY OF PRESENT ILLNESS: telephone PAT History completed prior to upcoming procedure with Dr. Puente on 07/23/24 at [place] Location ED Visit (05/30/2024) Partial Note- Hand injury/table saw 28 year old male right-hand dominant presenting to the ED for multiple lacerations to his right hand after table saw accident.. Patient endorses he was using a table saw when he accidentally cut his 3rd and 5th digits. Patient endorses some numbness and tingling to the digits as well as severe pain. He was having trouble moving the 5th digit. Patient was transferred here from [facility] for surgical consultation. A/P 28-year-old male with a past medical history listed above who presents to the emergency department as a transfer from [facility] for hand surgery consult. On initial presentation patient was resting comfortably in his hemodynamically stable and afebrile. Outside images were reviewed which is consistent with traumatic subluxation of the third distal interphalangeal joint with partial amputation of the third distal phalanx occurring just distal to the base and traumatic subluxation of the fifth proximal interphalangeal joint with fractures of the proximal phalangeal head and intermediate phalangeal base. Patient received updated tetanus, IV antibiotics and pain control prior to evaluation at [facility]. Hand surgery was consulted, evaluated the patient at bedside, and repaired the laceration as well as splinted the injury at bedside. Recommended follow up with Plastic surgery Clinic as well as antibiotics. Patient was given short course of oxycodone for pain. Patient was pain was well-controlled in the emergency department. Workup and findings were discussed with the patient and all questions were answered. Plastic Surgery Consult 28 year old RHD male with multiple injuries to right hand after working at home with table saw. Including partial amputation of DP of RMF, laceration of the zone 2 extensor tendon of RSF with accompanying MP fracture. Superficial abrasion of tip of RRF. - revision amputation of RMF at bedside - laceration repair of RSF injury - splinting - will require surgical exploration and repair of structures as outpatient - Follow up with Dr. Puente's office for surgery (schedulers messaged) - keflex for discharge - Dispo: per ED STOP-BANG Row Name 07/22/24 0838 History of sleep apnea? No Snoring No Tired/Fatigued Yes Observed Apnea No Pressure: Hypertension Yes BMI greater than 35 0 Age greater than 50 0 Neck circ greater than 40cm (15.75 ) Unable to Assess Gender male? 1 Score 3 The patient either has diagnosed sleep apnea or is a STOP-BANG score >/=3. If +STOP-BANG, the patient was educated that sleep apnea may mean that they do not breathe well when they sleep and that there is no way to know for sure without testing. The patient was educated in lay terms that there is an increased risk of hypertension, coronary artery disease, stroke, and with sleep apnea. They may also have decreased cognition, quality of life, and more motor vehicle and work accidents. They were encouraged to discuss the topic further with their primary care provider if they had one. Any patient questions were addressed. EXERCISE CAPACITY: 4-10 mets ALLERGIES: Patient has no known allergies. PREVIOUS ANESTHETIC EXPERIENCES AND INTUBATION HISTORY: Per Patient when had last surgery was given Fentanyl and per patient stopped breathing FAMILY HISTORY OF ANESTHETIC COMPLICATIONS: No PAST MEDICAL HISTORY: Past Medical History: Diagnosis Date Current smoker 06/01/2024 Comment on above: Added secondary to documentation in Social History. Essential (primary) hypertension Fracture of cervical vertebra (HCC) 03/14/2016 Gouty arthritis of right ankle 06/01/2024 Hand laceration involving tendon, right, subsequent encounter 05/30/2024 Open fracture of middle phalanx of finger 05/29/2024 PROBLEM LIST: Patient Active Problem List: Hand laceration involving tendon, right, subsequent encounter [S61.411D, S66.921D] Current smoker [F17.200] Fracture of cervical vertebra (HCC) [S12.9XXA] Gouty arthritis of right ankle [M10.9] Open fracture of middle phalanx of finger [S62.629B] Impaired function of upper extremity [R68.89] Amputation, finger, traumatic [S68.119A] Past Medical History and Review of Systems Pulmonary (+) a smoker (In process of quitting) Comment: Denies SOB, wheezes, fever, chills, inc (more content not included)... Normal [facility] Telephone Encounteron 2024 French Translator Authentication Interface Message Text Pt called to check status of refill request. Normal [facility] XR FINGERS RIGHT 3 VIEWSon 0 07-11-2024 XR FINGERS RIGHT 3 VIEWS EXAMINATION: XR FINGERS RIGHT 3 VIEWSPRO/RT/Right Fifth Digit 07/09/2024 01:29 PM CLINICAL HISTORY: fx f/u ASSOCIATED DIAGNOSIS: Traumatic amputation of finger, initial encounter Hand laceration involving tendon, right, subsequent encounter Hand laceration involving tendon, right, subsequent encounter ORDERING PROVIDER: CHARLENE NICK TECHNOLOGISTS NOTE: COMPARISON: XR HAND RIGHT 2 VIEWS 05/30/2024, 5:38 AM IMPRESSION: Comparison with the previous studies shows no change in position or alignment of the previously described right finger fractures. Multiple displaced fracture fragments. There is minimal interval callus formation. Persistent lucencies. Hardware is intact without signs of loosening. Right finger MACRO: None Normal [facility] Progress Noteson 07-09-2024 French Translator Authentication Interface Message Text Post Operative Visit Date of Surgery: 06/09/2024 Surgery(s) performed: 1. Right middle finger revision amputation at the level of distal portion of the middle phalanx. 2. Fixation of the extensor tendon at 2 different places, in central slip and also zone 5. 3. Open reduction of the PIP dislocation fracture. Surgeon: Christoph Puente MD Pain (0-10): Pain Score: 7/10 Other Complaints: Patient is feeling improved. Denies new trauma or injury. Gabapentin has helped. Denies fever, chills, nausea, and vomiting. He states one of his pins was protruding and when he manipulated it the pin fell out. Denies fever, chills, nausea, and vomiting. James purulent drainage and discharge. Wound: Clean and dry without signs or symptoms of infection. Sutures remain intact. Pin sites clean and dry. Edema: Mild Motion: Improved at index, middle, and ring fingers. Small finger motion not tested. Radiograph Findings: No change in alignment of hardware. Four pins remain. Bone loss noted at middle phalanx. Plan: - X-ray images reviewed with patient. - Sutures removed today. - Patient encouraged to wash and dry area with soap and water. Water running over incision is beneficial. Regular body or hand wash is appropriate. Advised not to submerge incision in dirty water (i.e, baths, hot tubs, lakes, dish water). - Signs and symptoms of infection described to patient including erythema, warmth, purulent discharge, fever, and chills. Patient to report to the emergency room immediately if any of these symptoms occur. - Case to be discussed with . X-rays on follow up: No. Follow up: 2 weeks. Diagnosis and treatment plan discussed with the patient. The patient stated understanding and agreement. Charlene Nick PA-C 07/09/24 2:10 PM Normal [facility] French Translator Authentication Interface Message Text OCCUPATIONAL THERAPY HAND TREATMENT Patient left without being seen. No skilled OT provided. ERIC Barroso/L, CHT Normal [facility] Progress Noteson 06-23-2024 French Translator Authentication Interface Message Text Post Operative Visit Date of Surgery: 06/09/2024 Surgery(s) performed: 1. Right middle finger revision amputation at the level of distal portion of the middle phalanx. 2. Fixation of the extensor tendon at 2 different places, in central slip and also zone 5. 3. Open reduction of the PIP dislocation fracture. Surgeon: Christoph Puente MD Pain (0-10): Pain Score: 8/10 Other Complaints: Patient is feeling improved. Denies new trauma or injury. Pain seems to ebb and flow. Gabapentin has helped. Denies fever, chills, nausea, and vomiting. Wound: Clean and dry without signs or symptoms of infection. Sutures remain intact. Edema: Mild Motion: Improved at index, middle, and ring fingers. Small finger motion not tested. Radiograph Findings: none. Plan: - Sutures removed today. - Patient encouraged to wash and dry area with soap and water. Water running over incision is beneficial. Regular body or hand wash is appropriate. Advised not to submerge incision in dirty water (i.e, baths, hot tubs, lakes, dish water). - Signs and symptoms of infection described to patient including erythema, warmth, purulent discharge, fever, and chills. Patient to report to the emergency room immediately if any of these symptoms occur. - Discussed pin removal at 4-6 weeks. - Pain medication refilled. Taper discussed. X-rays on follow up: Yes - Ordered today. Follow up: 3 weeks. Diagnosis and treatment plan discussed with the patient. The patient stated understanding and agreement. Charlene Nick PA-C 06/23/24 12:25 PM Normal [facility] Interface Message Text OCCUPATIONAL THERAPY HAND TREATMENT Visit #: 3 Referred to Occupational Therapy for evaluation and treatment. Referring Provider: Charlene Nick PA-C DIAGNOSIS: Right SF open fracture dislocation and extensor tendon laceration and R MF distal phalanx amputation. PROCEDURES 06/09/24 ([facility]): 1. R MF revision amputation at the level of distal portion of the middle phalanx. 2. Fixation of the extensor tendon at 2 different places, in central slip and also zone 5. 3. Open reduction of the PIP dislocation fracture. DOI/Mechanism: 05/30/24 - table saw injury Precautions: Small finger PIP is pinned. Extensor tendon precautions. NWB Payor: [employer] - HMO/PPO/POS / [facility] / Product Type: PPO Tu Casiano is a 28 year old R hand dominant male. Past Medical History as of 06/23/2024: Past Medical History: Diagnosis Date Current smoker 06/01/2024 Comment on above: Added secondary to documentation in Social History. Essential (primary) hypertension Fracture of cervical vertebra (HCC) 03/14/2016 Gouty arthritis of right ankle 06/01/2024 Hand laceration involving tendon, right, subsequent encounter 05/30/2024 Open fracture of middle phalanx of finger 05/29/2024 Medications: See snapshot for updated medication list. 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 Identification was verified by patient verbalizing name and date of . SUBJECTIVE: Pt reports his splint are fitting well. Doing his stretches multiple times a day. Cleaning his wounds once a day. Patient's Goals: to get back to normal use of R hand Pain scale: Pain is 7-8/10. Pain located at R SF and is described as sharp and throbbing. To manage symptoms, patient instructed to complete home exercise program, to utilize splint as instructed, and to use modalities as instructed. OBJECTIVE: Functional Deficits/ADL Status: Patient reports difficulties with toilet hygiene. Has assistance, from Darlene Castillo. Has a two month old at home. Appearance: Amputation of distal R MF Open area along incision on dorsum of R MF Open area along radial side of small finger PIP joint, R SF Sutures removed by PA Moderate edema in R MF and R SF Maceration of Sf Range of motion over time: AROM (PROM noted in parenthesis) Finger motion: distance to distal palmar crease (DPC), measured in cm Date: 06/23/24 Arm: R Distance to DPC Index 3 Middle 4 Ring 3 Small NT R MF PIP: 0 / 25 Sensation: Intact per patient, not formally assessed Treatment Today: Reviewed HEP - active motion of IF MF and RF as able -passive motion of IF MF and RF Wound care completed - educated pt to avoid excessive bacitracin and moisture due to maceration, air wound out during dressing changes Home Exercise Program (HEP): Reach and grab exercises for edema control and shoulder/elbow ROM PIP blocking of R MF Active MP flex/ext of all digits PROM of index, middle and ring fingers and AROM as able. Difficult due to immobilization of small finger. Wound care / dressing changes - 1 time per day. See above. Splint as instructed Precautions - NWB, no heavy lifting, light hand use with splint on (mainly thumb and index for prehension), no wrist flexion to protect ext tendon repair Orthosis: Date: 06/15/24 - Fabricated custom orthosis - Forearm based volar wrist splint AND R SF gutter splint Purpose of orthosis: protect healing structures Wearing schedule: At all times except remove for shower and dressing changes. Patient was instructed in wearing schedule, care, and precautions. Pt educated in Home Exercise Program (HEP), Precautions, and Orthotic Management Pt response to education: Return demonstration, Verbalized understanding ASSESSMENT: Tu Casiano is a 28 year old male 2 weeks s/p surgery. -pt seen by PA today prior to OT visit -improving IF MF and RF motion although he still does have limitations -R SF wound is macerated, sutures removed today by PA, educated pt to avoid excessive bacitracin to allow wound to dry -splints are fitting well and pt is compliant with HEP Pt appears to understand OT recommendations and precautions at this time. Pt would benefit from skilled OT to improve R UE function. Pt would benefit from skilled OT to address problem list below. Prognosis for therapy: Fair Problems include: Decreased Range of Motion, Edema, Pain, Impaired Self Care Skills, Impaired Home Management Skills, Unable to perform Full Work Tasks, Open Wound, Lack of home program, and Healing Structures PLAN OF CARE: Patient would benefit from Occupational Therapy for the following goals: GOALS SHORT-TERM GOALS - achieve in 3 visits: Goal Status last updated on 06/02/24 Pt will be independent with home exercise program as instructed by therapist. Status: INITIATED Pt will demonstrate/verbaliz e use, care of, and precautions regarding orthoses. Stat (more content not included)... Normal [facility] Progress Noteson 06-15-2024 French Translator Authentication Interface Message Text Post Operative Visit Date of Surgery: 06/09/2024 Surgery(s) performed: 1. Right middle finger revision amputation at the level of distal portion of the middle phalanx. 2. Fixation of the extensor tendon at 2 different places, in central slip and also zone 5. 3. Open reduction of the PIP dislocation fracture. Surgeon: Christoph Puente MD Pain (0-10): 10/10 Other Complaints: Patient continues to be concerned about intractable pain. He is currently taking two oxycodone every 6 hours, Toradol every 6 hours, and gabapentin three times daily. He states if he does not take this much medication he gets no relief. Denies fever, chills, nausea, and vomiting. Has maintained splint since surgery. Wound: Clean and dry without signs or symptoms of infection. Sutures remain intact. Edema: Mild Motion: Not tested. Radiograph Findings: none. Plan: - Operative films reviewed with patient today. - Patient encouraged to wash and dry area with soap and water. Water running over incision is beneficial. Regular body or hand wash is appropriate. Advised not to submerge incision in dirty water (i.e, baths, hot tubs, lakes, dish water). - Signs and symptoms of infection described to patient including erythema, warmth, purulent discharge, fever, and chills. Patient to report to the emergency room immediately if any of these symptoms occur. - Ciprofloxacin prescribed. - Dressing changes twice daily: bacitracin, adaptic, gauze, coban. - ROM middle and ring finger encouraged. - OT today for splinting and to begin therapy per protocol. X-rays on follow up: No Follow up: 1 week for suture removal. Diagnosis and treatment plan discussed with the patient. The patient stated understanding and agreement. Charlene Nick PA-C 06/15/24 12:15 PM Normal [facility] S[employer]tered [employer] Interactive Text OCCUPATIONAL THERAPY HAND TREATMENT Visit #: 2 Referred to Occupational Therapy for evaluation and treatment. Referring Provider: Charlene Nick PA-C DIAGNOSIS: Right SF open fracture dislocation and extensor tendon laceration and R MF distal phalanx amputation. PROCEDURES 06/09/24 ([facility]): 1. R MF revision amputation at the level of distal portion of the middle phalanx. 2. Fixation of the extensor tendon at 2 different places, in central slip and also zone 5. 3. Open reduction of the PIP dislocation fracture. DOI/Mechanism: 05/30/24 - table saw injury Precautions: Small finger PIP is pinned. Extensor tendon precautions. NWB Payor: [employer] - HMO/PPO/POS / [facility]: [facility]/PLUS / Product Type: RAÚLO Tu Casiano is a 28 year old R hand dominant male. Past Medical History as of 06/15/2024: Past Medical History: Diagnosis Date Current smoker 06/01/2024 Comment on above: Added secondary to documentation in Social History. Essential (primary) hypertension Fracture of cervical vertebra (HCC) 03/14/2016 Gouty arthritis of right ankle 06/01/2024 Hand laceration involving tendon, right, subsequent encounter 05/30/2024 Open fracture of middle phalanx of finger 05/29/2024 Medications: See snapshot for updated medication list. 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 Identification was verified by patient verbalizing name and date of . SUBJECTIVE: Patient's Goals: to get back to normal use of R hand Pain scale: Pain is 8/10. Pain located at R SF and tip of MF and is described as sharp and throbbing. To manage symptoms, patient instructed to complete home exercise program, to utilize splint as instructed, and to use modalities as instructed. OBJECTIVE: Functional Deficits/ADL Status: Patient reports difficulties with toilet hygiene. Has assistance, from Darlene Castillo. Has a two month old at home. Appearance: Amputation of distal R MF Open area along incision on dorsum of R MF Open area along radial side of small finger PIP joint, R SF Sutures intact. Moderate edema in R MF and R SF Range of motion over time: AROM (PROM noted in parenthesis) Finger motion: distance to distal palmar crease (DPC), measured in cm Date: Arm: Distance to DPC Index Middle Ring Small R MF PIP: 0 / 25 Sensation: Intact per patient, not formally assessed Treatment Today: See Home Exercise Program Applied dressings to R MF and R SF - bacitracin, adaptic, 2x2, Blaire and coban. Instructed patient and maggie in dressing changes. Instructed patient in HEP Home Exercise Program (HEP): Reach and grab exercises for edema control and shoulder/elbow ROM PIP blocking of R MF Active MP flex/ext of all digits PROM of index, middle and ring fingers and AROM as able. Difficult due to immobilization of small finger. Wound care / dressing changes - 1 time per day. See above. Splint as instructed Precautions - NWB, no heavy lifting, light hand use with splint on (mainly thumb and index for prehension), no wrist flexion to protect ext tendon repair Orthosis: Date: 06/15/24 - Fabricated custom orthosis - Forearm based volar wrist splint AND R SF gutter splint Purpose of orthosis: protect healing structures Wearing schedule: At all times except remove for shower and dressing changes. Patient was instructed in wearing schedule, care, and precautions. Pt educated in Home Exercise Program (HEP), Precautions, and Orthotic Management Pt response to education: Return demonstration, Verbalized understanding ASSESSMENT: Tu Casiano is a 28 year old male 6 day(s) s/p surgery. OT for protective splinting and controlled mobilization. - no ROM to R SF - no wrist flexion beyond limits of splint - with immobilization of SF, needs to maintain passive mobility of adjacent digits - minimal AROM noted in MF. Pt appears to understand OT recommendations and precautions at this time. Pt would benefit from skilled OT to improve R UE function. Pt would benefit from skilled OT to address problem list below. Prognosis for therapy: Fair Problems include: Decreased Range of Motion, Edema, Pain, Impaired Self Care Skills, Impaired Home Management Skills, Unable to perform Full Work Tasks, Open Wound, Lack of home program, and Healing Structures PLAN OF CARE: Patient would benefit from Occupational Therapy for the following goals: GOALS SHORT-TERM GOALS - achieve in 3 visits: Goal Status last updated on 06/02/24 Pt will be independent with home exercise program as instructed by therapist. Status: INITIATED Pt will demonstrate/verbaliz e use, care of, and precautions regarding orthoses. Status: INITIATED Pt will be able to don/doff orthosis independently. Status: INITIATED Pt will be independent with scar management techniques. Status: INITIATED Pt. will be able to complete wound care independently. Status: INITIATED Pt (more content not included)... Normal The [employer] Telephone Encounteron 2024 French Translator MasterImage 3Dation Interface Message Text Spoke to patient about pain. Pain has been constant since surgery. Has been elevating as directed. Taking tylenol, ibuprofen, oxycodone, and gabapentin as directed. Describes throbbing pain that he can tolerate but worsening electric like pains that go from his middle finger to proximal areas. States that splint does not feel like it has moved. I told the patient that his symptoms sound more attributable to nerve pain. [place] [facility] [place] possible splint adjustment if needed. He is unable to come for visit due to having child at home and no one to drive him from his house since he is currently taking oxycodone. Will prescribe toradol and some oxycodone to make him comfortable through the weekend. Instructed to stop ibuprofen in lieu of toradol. Continue acetaminophen around the clock. Also instructed patient to increase dose of gabapentin from 100 mg TID to 300 mg TID to help with nerve pain. Continue to elevate and ice as he has been doing. Instructed to call back if he has any further questions. Stevie Glasgow, PGY4 Plastic Surgery Normal The [employer] Authentication Interface Message Text Complaint: Returned patient call for complaints of unbearable pain to fingers of right hand, especially middle finger . Description: right middle finger revision amputation and fixation of extensor tendon . ORIF of PIP dislocation RSF 06/09/24 Associated symptoms: Pt with complaints of unbearable pain, unable to sleep . Discussed pain medication regime. Pt states that he as already increased taking his Oxycodone 5mg to every 4 hours. States he is taking Ibuprofen 600mg every 6 hours and Tylenol 500mg every 4 hours with the Oxycodone without relief. What has been tried?: Pt states he is elevating his hand above his heart level, for complaints of throbbing pain . Using ice for 15 minutes every 1-2 hours. Surgeon: Cely Puente MD Informed pt: After speaking with King Ross CNP and Patrick Glasgow, plastic surgery resident about patient complaints, Instructed patient to come to [facility] today to be seen. Pt declined appointment, stating that he has a child at home and is unable to come in for an appointment to be seen. I stressed the importance of coming in for evaluation due to complaints of pain and need to have wound checked and splint evaluated. Instructed patient that he would need to come to clinic for evaluation or an ED due to complaints of persistent, unbearable pain . Pt still declined appointment. I informed patient that I would have resident, Patrick Glasgow, call him back to discuss complaints. Dr Glasgow notified that patient declined appointment and that he is expecting a call from him. Normal The [facility] French Translator Authentication Interface Message Text Please call pt. His pain is unbearable. Normal The [facility] Telephone Encounteron 2024 French Translator Authentication Interface Message Text Spoke with pt regarding post op pain concerns/ Pt state pain is throbbing and constant with stabbing sensations MF, LF. Pt states he has been taking oxycodone 1 pill every 6 hours alternating with Tylenol 500mg and Ibuprofen 600 mg every 6 hours. Icing and elevating. No relief from pain. Able to wiggle fingers, though notes that to be painful. (+) sensate, color wnl. Discussed he is Day 1 post op for REPAIR, TENDON, EXTENSOR Right REDUCTION, OPEN, HAND Right Fifth digit middle phalanx Edema and pain worst today, will continue to improve as he heals post operatively. Pt requesting to double oxycodone dose, discussed not doing this without physician approval as early refill will not be permitted. Pt verbalized understanding. Normal The [facility] French Translator Authentication Interface Message Text Pt calling to request a different pain med. States was not able to sleep due to pain last night. Please call. Normal The [facility] Anesthesia Postprocedure Akosua luationon 06-09-2024 French Translator Authentication Interface Message Text Anesthesia Postoperative Assessment: Vital Signs (most recent): BP 151/100 (BP Location: left arm) Pulse 69 Temp 36.7 ???C (98.1 ???F) (Oral) Resp 20 Ht 6' (1.829 m) Wt 255 lb (115.7 kg) SpO2 93% BMI 34.58 kg/m??? Anesthesia Post Evaluation Level of consciousness: awake Post-procedure exam normal. Body temperature, hydration status, PONV and pain evaluated and addressed. Pain management: adequate Hydration status: normal PONV:No nausea/vomiting reported Cardiopulmonary status stable Respiratory status: acceptable Cardiovascular status: acceptable ANESTHESIA NOTABLE EVENTS: No notable events documented. Normal The [facility] Anesthesia Preprocedure Eval uationon 06-09-2024 French Translator Authentication Interface Message Text ASA: 2 No history of anesthetic complications NPO status: Greater than 8 hours Past Medical History and Review of Systems Pulmonary (+) a smoker Dental - negative ROS Endo (+) obesity Neuro/Psych - negative ROS Cardiovascular (+) hypertension, Surgical risk: low; Cardiac condition: no apparent No previous ECG available GI/Hepatic/Renal - negative ROS Heme/Other - negative ROS Other ROS: Presenting to the ED for multiple lacerations to his right hand after table saw accident (05/30/24). Patient endorses he was using a table saw when he accidentally cut his 3rd and 5th digits. Physical Exam Airway Mallampati: II TM distance: Adequate Micrognathia: Not present Jaw opening: Adequate Neck flexion: Adequate Dental PE (+) intact Pulmonary - pulmonary exam normal Comment: Chest clear to auscultation bilaterally Cardiovascular - cardiovascular exam normal Comment: RRR with S1S2; no murmurs, gallops, or rubs Neuro - neurological exam normal Comment: Awake, alert, oriented, No motor deficits and sensation grossly intact Plan Anesthesia plan: general; (LMA) Anesthesia risks / alternatives discussed pre-op Questions answered / anesthesia plan accepted Past medical history, surgical history, allergies, and medications reviewed. Pertinent laboratory tests, EKG, imaging, and consults reviewed and I have personally seen and evaluated the patient, repeating ken portions of the history and physical examination. Attestation: Anesthesia options were discussed with the patient and/or legal investment representative. The risks, benefits and alternatives were reviewed. Questions regarding anesthesia were answered. Patient and/or legal investment representative knows such anesthetics and procedures may be performed by Resident physicians, Certified Anesthesiologist Assistants, or Certified Nurse Anesthetists under the supervision of a physician. The patient /or the patient's legal investment representative agree with the plan for anesthesia. MHPATFORM Normal The [facility] Anesthesia Transfer Of Careo n 06-09-2024 French Translator Authentication Interface Message Text Patient taken to PACU. Patient was awake, comfortable, and stable on arrival. Anesthesia Transfer of Care Note Past Medical History: Past Medical History: Diagnosis Date Current smoker 06/01/2024 Comment on above: Added secondary to documentation in Social History. Essential (primary) hypertension Fracture of cervical vertebra (HCC) 03/14/2016 Gouty arthritis of right ankle 06/01/2024 Hand laceration involving tendon, right, subsequent encounter 05/30/2024 Open fracture of middle phalanx of finger 05/29/2024 Sleep Apnea/Positive STOP-BANG: Yes Problem List: Patient Active Problem List: Hand laceration involving tendon, right, subsequent encounter [S61.411D, S66.921D] Current smoker [F17.200] Fracture of cervical vertebra (HCC) [S12.9XXA] Gouty arthritis of right ankle [M10.9] Open fracture of middle phalanx of finger [S62.629B] Past Surgical History: Review of patient's past surgical history indicates: TONSILLECTOMY 2012 CIRCUMCISION Allergies: Patient has no known allergies. Basic Operating Room Facts: Surgeon(s): Cely Puente MD Anesthesiologist: Sulaiman aNm MD; Js Gonzalez MD CAA: Augie Guevara CAA SALES SUPPORT ENGINEER: Mary Chan APRN-CRNA Anesthesia Student: Renetta Maher REPAIR, TENDON, EXTENSOR (Right: Hand) REDUCTION, OPEN, HAND (Right: Hand) Intraoperative Events: No acute event ASA: 2 EBL: Not documented Urine Not documented Lactated Ringers and NaCl 0.9%: Fluid Totals (Filter: LR and NaCl 0.9% Medications Shown) Medication Calculated Total lactated ringers iv infusion 800 mL / 1 bag Cell Saver: Not documented Blood Volume Values: Blood Products None MTP Blood: MTP PRBC: Not documented MTP FFP: Not documented MTP PLT: Not documented MTP Cryo: Not documented MTP Whole Blood: Not documented Current Vasoactive Medications: {Vasoactive Medications: None Lines, Drains, Airways Peripheral IV Access: 06/09/24 1111 18 gauge Anterior;Left Forearm (Active) Site Assessment WNL;Dressing intact 06/09/24 1111 Infusion Status Port #1 Capped;Patent;Positi ve blood return 06/09/24 1111 Airway Insertion Details * No LDAs found * All non-working IVs have been removed: N/A Laboratory Data: CBC (last 3 years, up to 8 values) 05/30/2024 2:42 AM WBC 10.9 RBC 5.25 Hgb 17.4 Hct 50.4 MCV 96 RDW 13.1 Plt 200 BMP (last 3 years, up to 8 values) 05/30/2024 2:42 AM Na 144 K 4.1 Cl 104 CO2 26 Gap 18 Glu 130 BUN 6 Cr 0.76 Ca 9.4 eGFR 127 Basic Metabolic Panel No lab values to display. INR (no units) Date Value 05/30/2024 1.04 No result for BNP LFT's (last 3 years, up to 8 values) No lab values to display. Arterial Blood Gases None Hand off Completed: Yes 1. The patient was identified. 2. Pertinent medical history was relayed. 3. A brief discussion was had about any pertinent surgical/ procedural issues. 4. Intraoperative/ anesthetic management issue and concerns were discussed. 5. Plans for the early post-operative period relayed. 6. An opportunity for questions and acknowledgment of understanding of the report was received. JAYLIN Francois Normal The [facility] Blood Attestationon 06-09-19 French Translator Authentication Interface Message Text Blood Attestation: ATTESTATION OF INFORMED CONSENT FOR BLOOD: The transfusion of blood and/or blood components were discussed with the patient and/or legal investment representative. The risks, benefits and alternatives were reviewed. Questions regarding blood transfusions were answered. The patient /or the patient's legal investment representative agree with the plan for transfusion of blood and/or blood components. Normal The [facility] Brief Operative Noteon 06-09 French Translator Authentication Interface Message Text Brief Op Note Surgical Name: Tu Casiano CSN: [id number] Age: [age] year old Date of : 1995 Preoperative diagnosis(es): Pre-op Diagnosis * Hand laceration involving tendon, right, subsequent encounter [C92.895D, O97.831A] Postoperative diagnosis(es): Same Procedure(s): REPAIR, TENDON, EXTENSOR REDUCTION, OPEN, HAND Surgeon: Cely Puente MD Plaster Foreman surgeon: Dr. Matta Anesthesia: General Specimen(s): * No specimens in log * Estimated blood loss: less than 5 cc IV Fluids: 900 mL Urine Output: NA Drains: Peripheral IV Access: 06/09/24 1111 18 gauge Anterior;Left Forearm (Active) Site Assessment WNL;Dressing intact 06/09/24 1111 Infusion Status Port #1 Capped;Patent;Positi ve blood return 06/09/24 1111 Findings: None Complications: None Surgery Time (skin to dressing): 1 hr ASA Code: Class II: Individual with one system well controlled disease. Disease does not affect daily living. Status at end of surgery: Stable Dictated by: Cely Puente MD: I was present for the critical parts of the procedure. Cely Puente MD 06/09/2024 3:13 PM Normal The [facility] OP Noteon 06-09-2024 French Translator Authentication Interface Message Text Name: TU CASIANO I MR#: [id number] ENC#: [id number] Date of Procedure: 06/09/2024 ATTENDING SURGEON: Christoph Puente MD STRIPE MARKER: Dr. Matta PREOPERATIVE DIAGNOSES: Right hand small finger open fracture dislocation and extensor tendon laceration and middle finger distal phalanx amputation. POSTOPERATIVE DIAGNOSIS: Right hand small finger open fracture dislocation and extensor tendon laceration and middle finger distal phalanx amputation. PROCEDURES: 1. Right middle finger revision amputation at the level of distal portion of the middle phalanx. 2. Fixation of the extensor tendon at 2 different places, in central slip and also zone 5. 3. Open reduction of the PIP dislocation fracture. ANESTHESIA: General. ESTIMATED BLOOD LOSS: Less than 5 cc. IV FLUIDS: 900. SURGERY TIME: Around 1 hour. BACKGROUND: The patient is a 28-year-old male with history of saw injury to the right hand, sustained injuries to the small and middle fingers. Different options discussed. Decision was made to proceed with a revision amputation of the middle finger at the level of the distal part of the middle phalanx and also index finger reduction of the dislocation, fracture and also extensor tendon repair. Surgery complications and limitations discussed with the patient in detail. He seemed to understand. He wanted to proceed with surgery. DESCRIPTION OF PROCEDURE: The patient was taken to the OR, was put in supine position. General anesthesia was applied. Right upper extremity was rested on a hand table. Proximal arm tourniquet was applied. The right upper extremity was prepped with Hibiclens solution, then it was draped. First, we opened the middle finger and the distal phalanx bone was completely gone. There was some cartilage part of it, which we debrided. Part of the middle phalanx, specifically cartilaginous cap was shaved off. We designed advancement flap, shortened extensor and flexor tendons and then, after irrigation, the volar flap was wrapped around the bone and closed with 5-0 chromic. Then, we started evaluating the small finger under the C-arm guidance. The patient had a dislocation fracture of the PIP joint. The extensor tendon over the central slip was from the bone with a bony part of it and also was cut over zone 5. After irrigation, we reduced the PIP dislocation fracture and pinned it by two 0.35 K-wires were fired from the both sides of the proximal phalanx going to the middle phalanx. Then, the extensor tendon with a piece of a bone was placed over the proximal part of the middle phalanx and fixated with two 0.35 K-wires and then extensor tendon laceration over the distal piece zone 5 was repaired with 4-0 Prolene, and we placed a K-wire, from the distal end of the phalanx passing through the DIP joint to the middle phalanx to keep the finger in extension to protect the extensor tendon laceration repair. Skin was closed with 4-0 nylon. K-wires were shortened. X-rays were saved. Tourniquet was deflated. The patient was dressed with bacitracin, Adaptic, and ulnar gutter. The patient tolerated the procedure very well, extubated and transferred to PACU in stable condition. Christoph Puente MD SAT/MedQ/Dict: 06/09/2024 15:21:21 TRANS: 06/09/2024 15:42:55 JOB: [id number] DictJob#: [id number] Normal The [facility] Progress Noteson 06-09-2024 French Translator Authentication Interface Message Text Dr. Golden at bedside to explain safety and possible repercussions of pain medication due to patient's high STOPBANG score. Fiance and grandmother at bedside. Patient declined extended stay for monitoring in case of narcotic administration and decided to be discharged. Patient expressed understanding regarding the possible side effects of narcotic administration with a high STOPBANG score. Patient discharged with instructions and home prescriptions. Normal The [facility] US GUIDANCE NEEDLE PLACEMENT on 06-09-2024 US GUIDANCE NEEDLE PLACEMENT Narrative AND Impression EXAMINATION: US GUIDANCE NEEDLE PLACEMENT CLINICAL HISTORY: peripheral nerve block IMPRESSION: : Technical services were performed by the department of Anesthesia. Please see the Procedure note for interpretation. Please refer to the patient's chart for the results of the procedure and ultrasound. Normal The [facility] US Guidance for placement of needle in Unspecified body regionon 06-09-2024 : Technical services were performed by the department of Anesthesia. Please see the Procedure note for interpretation. Please refer to the patient's chart for the results of the procedure and ultrasound. [facility] Narrative & Impression EXAMINATION: US GUIDANCE NEEDLE PLACEMENT CLINICAL HISTORY: peripheral nerve block [facility] Rad[facility] Study observation (narrative) [facility] US Guidance for placement of needle in Unspecified body regionOrdered By: Laila Golden on 06-09-2024 [facility] Phone: Assessment AND Plan Noteon 0 06-02-2024 French Translator Authentication Interface Message Text - Dressings removed. - Discussed upcoming surgery, risks, benefits, prognosis, and outcomes. - Dressings placed today: bacitracin, adaptic, gauze, PHU. - OT today for splinting. Maintain splint until surgery. - Pain medication refilled. - Follow up one week post operatively. Normal The [facility] Progress Noteson 06-02-2024 French Translator Authentication Interface Message Text Opened in error. Normal The [facility] French Translator Authentication Interface Message Text Chief Complaint: Right hand laceration x 05/30/2024. History of the Present Illness: 28 year old right hand dominant male presents with a 3 day long history of right middle, ring, and small finger pain s/p having a laceration by table saw. He immediately presented to the emergency department where he was treated. He has surgery scheduled for for next week but has concerns about pain control. He has been taking ibuprofen and oxycodone for pain. Pain Score: 9/10 (right hand). He has also been taking his antibiotics. Denies fever, chills, nausea, and vomiting. Denies purulent drainage and discharge. Past Medical History: Patient Active Problem List: Hand laceration involving tendon, right, subsequent encounter [S61.411D, S66.591D] Current smoker [F17.200] Fracture of cervical vertebra (HCC) [S12.9XXA] Gouty arthritis of right ankle [M10.9] Open fracture of middle phalanx of finger [S62.629B] Family History: No family history on file. Review of Systems: - Constitutional: negative - Neck: negative - Cardiovascular: negative - Integumentary: negative - Neurologic: Reviewed with no complaints - Hematological/Lympha tic: negative (no anemia, bleeding, bruising) - Psychiatric: Reviewed with no complaints - Musculoskeletal: See HPI. All other systems have been reviewed and are negative except as noted in the HPI. Physical Exam: - Constitutional: alert, appears stated age, cooperative, and no distress - Eyes: Anicteric sclera. Pupils are equally round and reactive to light. Extraocular movements are intact. - Cardiovascular: No extremity, swelling, varices, edema, pallor, erythema - Respiratory: No respiratory distress - Psychiatric: normal affect - Hematologic/Lymphati c/Immunologic: No supraclavicular lymphadenopathy, No axillary lymphadenopathy, No supratrochlear lymphadenopathy. - Integumentary: Skin color, texture, turgor normal. No rashes or lesions. - Neurologic: Intact and symmetric. - Musculoskeletal: Right middle finger amputated at the distal phalanx. Maceration noted at middle, ring, and small fingers. Small finger sits in flexion at the PIP joint. Sutures remain intact. No erythema, drainage, or warmth. Active bleeding at distal phalanx of small finger. Imaging: Radiographs were personally viewed and interpreted. Assessment AND Plan Hand laceration involving tendon, right, subsequent encounter - Dressings removed. - Discussed upcoming surgery, risks, benefits, prognosis, and outcomes. - Dressings placed today: bacitracin, adaptic, gauze, PHU. - OT today for splinting. Maintain splint until surgery. - Pain medication refilled. - Follow up one week post operatively. Traumatic amputation of finger, initial encounter - See above. Acute pain due to injury - Advised to stop NSAIDs three days prior to surgery. Orders: oxyCODONE 5 MG immediate release tablet; Take 1 Tablet by mouth every 6 hours as needed for Pain for up to 7 days. acetaminophen (TYLENOL) 500 MG tablet; Take 1-2 Tablets by mouth every 8 hours. gabapentin (NEURONTIN) 100 MG capsule; Take 1 Capsule by mouth 3 times daily for 30 days. Diagnosis and treatment plan discussed with the patient. The patient stated understanding and agreement. Charlene Nick PA-C 06/02/24 12:06 PM Normal [facility] PAT Call Historyon 5 French Translator Authentication Interface Message Text Telephone History Tu Johnson, [id number] 06/01/2024 28 year old 255 lbs 6' 0 Patient was identified by name and date of . Needs: Physical, Neck Circumference on DOS. Stop 4, *Elevated BP in ED note 05/30/2024 If the patient becomes ill prior to procedure or surgery, they are to call their provider or surgeon's office directly. Date of Surgery: 06/09/2024 Surgeon: Rica Type of Surgery: RIGHT REPAIR, TENDON, EXTENSOR, REDUCTION, OPEN, HAND, Fifth digit middle phalanx HISTORY OF PRESENT ILLNESS: Telephone history prior to surgery or procedure with anesthesia scheduled at [facility] ED Visit (05/30/2024) Partial Note- Hand injury/table saw 28 year old male right-hand dominant presenting to the ED for multiple lacerations to his right hand after table saw accident.. Patient endorses he was using a table saw when he accidentally cut his 3rd and 5th digits. Patient endorses some numbness and tingling to the digits as well as severe pain. He was having trouble moving the 5th digit. Patient was transferred here from [facility] for surgical consultation. A/P 28-year-old male with a past medical history listed above who presents to the emergency department as a transfer from [facility] for hand surgery consult. On initial presentation patient was resting comfortably in his hemodynamically stable and afebrile. Outside images were reviewed which is consistent with traumatic subluxation of the third distal interphalangeal joint with partial amputation of the third distal phalanx occurring just distal to the base and traumatic subluxation of the fifth proximal interphalangeal joint with fractures of the proximal phalangeal head and intermediate phalangeal base. Patient received updated tetanus, IV antibiotics and pain control prior to evaluation at [facility]. Hand surgery was consulted, evaluated the patient at bedside, and repaired the laceration as well as splinted the injury at bedside. Recommended follow up with Plastic surgery Clinic as well as antibiotics. Patient was given short course of oxycodone for pain. Patient was pain was well-controlled in the emergency department. Workup and findings were discussed with the patient and all questions were answered. Plastic Surgery Consult 28 year old RHD male with multiple injuries to right hand after working at home with table saw. Including partial amputation of DP of RMF, laceration of the zone 2 extensor tendon of RSF with accompanying MP fracture. Superficial abrasion of tip of RRF. - revision amputation of RMF at bedside - laceration repair of RSF injury - splinting - will require surgical exploration and repair of structures as outpatient - Follow up with Dr. Puente's office for surgery (schedulers messaged) - keflex for discharge - Dispo: per ED STOP-BANG Row Name 06/01/24 0836 History of sleep apnea? No Snoring Yes Tired/Fatigued Yes Observed Apnea No Pressure: Hypertension Yes BMI greater than 35 0 Age greater than 50 0 Gender male? 1 Score 4 Advised to discuss Sleep study with PCP - Patient receptive EXERCISE CAPACITY: 4-10 mets ALLERGIES: Patient has no known allergies. PREVIOUS ANESTHETIC EXPERIENCES AND INTUBATION HISTORY: No previous anesthetic complication FAMILY HISTORY OF ANESTHETIC COMPLICATIONS: No PAST MEDICAL HISTORY: Past Medical History: Diagnosis Date Current smoker 06/01/2024 Comment on above: Added secondary to documentation in Social History. Essential (primary) hypertension Fracture of cervical vertebra (HCC) 03/14/2016 Gouty arthritis of right ankle 06/01/2024 Hand laceration involving tendon, right, subsequent encounter 05/30/2024 Open fracture of middle phalanx of finger 05/29/2024 PROBLEM LIST: Patient Active Problem List: Hand laceration involving tendon, right, subsequent encounter [S61.411D, S66.739L] Current smoker [F17.200] Fracture of cervical vertebra (HCC) [S12.9XXA] Gouty arthritis of right ankle [M10.9] Open fracture of middle phalanx of finger [S62.629B] Past Medical History and Review of Systems Pulmonary (+) no home oxygen, a smoker (attempting to quit down to 1-2 cigs/day) (-) sleep apnea, COPD, asthma, shortness of breath, pneumonia in last 3 months, pulmonary embolism, recent URI, tuberculosis, home oxygen Dental (-) teeth problems, dental plate or appliance and TMJ pain Endo (+) obesity (-) diabetes mellitus, hypothyroidism, 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 Normal [facility] Telephone Encounteron 2024 French Translator Authentication Interface Message Text Spoke with pt regarding pain regimen. Pt describes constant pain, throbbing in nature. Pt currently taking oxycodone every 5 (rx for every 6 hours) and ibuprofen 400 mg twice a day. . Discussed taking oxycodone as prescribed as we risk pharmacy not refilling early. Also discussed taking ibuprofen 600mg every 6 hours with food, take every 6 for the next 2-3 days to allow for inflammatory response to occur. Pt to continue to elevate arm, can use ice being sure to keep splint dry, wiggle fingers. Pt aware to keep splint intact, dry until OR. Pt agrees to POC. Preferred pharmacy for oxycodone refill is [facility] in [facility]. Current rx ends 2/5-pt aware we might not be able to fill until 2/6 based on frequency of rx. Normal [facility] French Translator Authentication Interface Message Text Please call patient in regards to pain medication refill. Pain meds now not working so good. Please call patient TONY they run out of meds by tomorrow. [phone] [facility] Addendum Noteon 05-30-2024 French Translator Authentication Interface Message Text Addended by: CHARLENE NICK on: 05/30/2024 12:19 PM Modules accepted: Orders Normal [facility] BASIC METABOLIC PANELon Anion gap [Moles/Vol] 18 mmol/L Normal 10-20 [facility] Comment on above: Performed By: #### C H8 #### [facility] [address] [place] [address], Calcium [Mass/Vol] 9.4 mg/dL Normal 8.6-10.3 The [facility] Comment on above: Performed By: #### C H8 #### [facility] [address] [place] [address], Chloride [Moles/Vol] 104 mmol/L Normal 98-107 [facility] Comment on above: Performed By: #### C H8 #### [facility] [address] [place] [address], CO2 [Moles/Vol] 26 mmol/L Normal 21-31 The [facility] Comment on above: Performed By: #### C H8 #### [facility] [address] [place] [address], Creatinine [Mass/Vol] 0.76 mg/dL Normal 0.70-1.30 [facility] Comment on above: Performed By: #### C H8 #### [facility] [address] [place] [address], ESTIMATED GFR (CKD-EPI) 127 mL/min/1.73sqm Normal >=60 [facility] Comment on above: Result Comment: 2020 CKD EPI Equation using Creatinine without Race Comment: Estimated glomerular filtration rate (eGFR) is calculated without a race coefficient. Values should be interpreted in the context of the patient's full clinical presentation. Reference: 1. Darin Newton M, Daily PLUMMER, et al.. A Unifying Approach for GFR Estimation: Recommendations of the NKF-ASN Task Force on Reassessing the Inclusion of Race in Diagnosing Kidney Disease. [place] Journal of Kidney Diseases 2021;79(2):268-88.e1. 2. N Engl J Med 2020 Vol. 385 Issue 19 Pages 2972-2198 Performed By: #### C H8 #### [facility] [address] [place] [address], Glucose [Mass/Vol] 130 mg/dL High 74-109 [facility] Comment on above: Performed By: #### C H8 #### [facility] [address] [place] [address], Potassium [Moles/Vol] 4.1 mmol/L Normal 3.5-5.0 [facility] Comment on above: Performed By: #### C H8 #### [facility] [address] [place] [address], Sodium [Moles/Vol] 144 mmol/L Normal 136-145 [facility] Comment on above: Performed By: #### C H8 #### [facility] [address] [place] [address], Urea nitrogen [Mass/Vol] 6 mg/dL Low 7-25 [facility] Comment on above: Performed By: #### C H8 #### [facility] [address] [place] [address], Basic metabolic 2000 panelon 05-30-2024 Anion gap [Moles/Vol] 18 mmol/L 10 - 20 [facility] Calcium [Mass/Vol] 9.4 mg/dL 8.6 - 10. 3 mg/dL [facility] Chloride [Moles/Vol] 104 mmol/L 98 - 10 7 mmol/L [facility] CO2 [Moles/Vol] 26 mmol/L 21 - 31 mmol/L [facility] Creatinine [Mass/Vol] 0.76 mg/dL 0.70 - 1.30 mg/dL [facility] GFR/1.73 sq M.predicted CKD-EPI (S/P/Bld) [Vol rate/Area] 127 - PINF [facility] Comment on above: 2020 CKD EPI Equatio n using Creatinine without Race Comment: Estimated glomerular filtration rate (eGFR) is calculated without a race coefficient. Values should be interpreted in the context of the patient's full clinical presentation. Reference: 1. Damion C, Darin M, Daily PLUMMER, et al.. A Unifying Approach for GFR Estimation: Recommendations of the NKF-ASN Task Force on Reassessing the Inclusion of Race in Diagnosing Kidney Disease. [place] Journal of Kidney Diseases 2021;79(2):268-88.e1. 2. N Engl J Med 2020 Vol. 385 Issue 19 Pages 6667-7054 Glucose [Mass/Vol] 130 mg/dL High 74 - 109 mg/dL [facility] Interpretation and review of laboratory results Abnormal [facility] Potassium [Moles/Vol] 4.1 mmol/L 3.5 - 5.0 mmol/L [facility] Sodium [Moles/Vol] 144 mmol/L 136 - 145 mmol/L [facility] Urea nitrogen [Mass/Vol] 6 mg/dL Low 7 - 25 mg/dL [facility] CBC WITH DIFFERENTIALon 0 Basophils (Bld) [#/Vol] 0.1 10*3/uL 0.00 - 0.20 K/uL [facility] Basophils/100 WBC (Bld) 0.9 % NINF - 1.9 % [facility] Eosinophils (Bld) [#/Vol] 0.06 10*3/uL 0.00 - 0.70 K/uL [facility] Eosinophils/100 WBC (Bld) 0.5 % 0.1 - 4.0 % [facility] Erythrocyte distribution width (RBC) [Ratio] 13.1 % 11.5 - 14.5 % [facility] Hematocrit (Bld) [Volume fraction] 50.4 % 41.0 - 53.0 % [facility] Hemoglobin (Bld) [Mass/Vol] 17.4 g/dL High 13.9 - 16.3 g/dL [facility] Interpretation and review of laboratory results Abnormal [facility] Lymphocytes (Bld) [#/Vol] 3.64 10*3/uL 1.00 - 4.80 K/uL [facility] Lymphocytes/100 WBC (Bld) 33.3 % 24.0 - 44.0 % [facility] MCH (RBC) [Entitic mass] 33.1 pg 26.0 - 34.0 pg [facility] MCHC (RBC) [Mass/Vol] 34.5 g/dL 32.0 - 35.9 g/dL [facility] MCV (RBC) [Entitic vol] 96 fL 80 - 100 fL [facility] Monocyte distribution width Auto (Bld) [Entitic vol] 20 NINF - 20 [facility] Monocytes (Bld) [#/Vol] 0.75 10*3/uL 0.20 - 1.00 K/uL [facility] Monocytes/100 WBC (Bld) 6.9 % 2.0 - 11.0 % [facility] Neutrophils (Bld) [#/Vol] 6.38 10*3/uL 1.50 - 8.00 K/uL [facility] Neutrophils/100 WBC (Bld) 58.4 % 31.0 - 76.0 % [facility] Platelet mean volume (Bld) [Entitic vol] 9.4 fL 7.5 - 11.2 fL [facility] Platelets (Bld) [#/Vol] 200 10*3/uL 150 - 400 K/uL [facility] RBC (Bld) [#/Vol] 5.25 10*6/uL [facility] WBC (Bld) [#/Vol] 10.9 10*3/uL 4.5 - 11.5 K/uL [facility] Basophils (Bld) [#/Vol] 0.10 10*3/uL Normal 0.00-0.20 [facility] Comment on above: Performed By: #### C BCDSAT ####S PATHOLOGY [id number] [place] [address], Basophils/100 WBC (Bld) 0.9 % Normal <=1.9 [facility] Comment on above: Performed By: #### C BCDSAT ####S PATHOLOGY [id number] [place] [address], Eosinophils (Bld) [#/Vol] 0.06 10*3/uL Normal 0.00-0.70 [facility] Comment on above: Performed By: #### C BCDSAT ####S PATHOLOGY [id number] [place] [address], Eosinophils/100 WBC (Bld) 0.5 % Normal 0.1-4.0 [facility] Comment on above: Performed By: #### C LACHODSAT ####S PATHOLOGY [id number] [place], [place], Erythrocyte distribution width (RBC) [Ratio] 13.1 % Normal 11.5-14.5 [facility] Comment on above: Performed By: #### C LACHODSAT ####[facility] PATHOLOGY [id number] [place], [place], Hematocrit (Bld) [Volume fraction] 50.4 % Normal 41.0-53.[address] [facility] Comment on above: Performed By: #### C ANTONIOAT ####S PATHOLOGY [id number] [place], [place], Hemoglobin (Bld) [Mass/Vol] 17.4 g/dL High 13.9-16.3 [facility] Comment on above: Performed By: #### C ANTONIOAT ####[facility] PATHOLOGY [id number] [place], [place], Lymphocytes (Bld) [#/Vol] 3.64 10*3/uL Normal 1.00-4.80 [facility] Comment on above: Performed By: #### C BCANKUSHAT ####[facility] PATHOLOGY [id number] [place], [place], Lymphocytes/100 WBC (Bld) 33.3 % Normal 24.0-44.0 [facility] Comment on above: Performed By: #### C BCDSAT ####S PATHOLOGY [id number] [place], [place], MCH (RBC) [Entitic mass] 33.1 pg Normal 26.0-34.0 [facility] Comment on above: Performed By: #### C BCDSAT ####S PATHOLOGY [id number] [place], [place], MCHC (RBC) [Mass/Vol] 34.5 g/dL Normal 32.0-35.9 [facility] Comment on above: Performed By: #### C BCANKUSHAT ####S PATHOLOGY [id number] [place], [place], MCV (RBC) [Entitic vol] 96 fL Normal 80-100 [facility] Comment on above: Performed By: #### C BCDSAT ####S PATHOLOGY [id number] [place], [place], MONOCYTE DISTRIBUTION WIDTH 20 Normal <=20 The [facility] Comment on above: Performed By: #### C BCDSAT ####S PATHOLOGY [id number] [place], [place], Monocytes (Bld) [#/Vol] 0.75 10*3/uL Normal 0.20-1.00 [facility] Comment on above: Performed By: #### C BCDSAT ####[facility] PATHOLOGY [id number] [place], [place], Monocytes/100 WBC (Bld) 6.9 % Normal 2.0-11.0 [facility] Comment on above: Performed By: #### C BCDSAT ####[facility] PATHOLOGY [id number] [place], Neutrophils (Bld) [#/Vol] 6.38 10*3/uL Normal 1.50-8.00 [facility] Comment on above: Performed By: #### C BCDSAT ####[facility] PATHOLOGY [id number] [place], Neutrophils/100 WBC (Bld) 58.4 % Normal 31.0-76.0 [facility] Comment on above: Performed By: #### C BCDSAT ####S PATHOLOGY [id number] [place], [place], Platelet mean volume (Bld) [Entitic vol] 9.4 fL Normal 7.5-11.2 The [facility] Comment on above: Performed By: #### C BCDSAT ####S PATHOLOGY [id number] [place], Platelets (Bld) [#/Vol] 200 10*3/uL Normal 150-400 [facility] Comment on above: Performed By: #### C BCDSAT ####S PATHOLOGY [id number] [place], RBC (Bld) [#/Vol] 5.25 10*6/uL Normal 4.50-5.90 [facility] Comment on above: Performed By: #### C BCDSAT ####S PATHOLOGY [id number] [place], WBC (Bld) [#/Vol] 10.9 10*3/uL Normal 4.5-11.5 The [facility] Comment on above: Performed By: #### C BCDSAT ####[facility] PATHOLOGY [id number] [place], [place], Consultson 05-30-2024 French Translator Authentication Interface Message Text PLASTIC SURGERY HAND CONSULT H AND P DOI: 05/30/24 CC: injury of right hand with table saw HPI: Tu Johnson is a 28 year old RHD male, smoker, otherwise healthy that comes with injury to the right hand after cutting stephanie at home with table saw. Patient states that the hand got caught with the saw at around 9 pm tonight and presented to OSH where decision was made to transfer to [facility]. The patient reports pain 10/10pm right small and middle fingers. Patient denies any previous surgeries on right hand. No past medical history on file. No past surgical history on file. Social History Socioeconomic History Marital status: Single No family history on file. No current facility-administere d medications on file prior to encounter. No current outpatient medications on file prior to encounter. No Known Allergies Review Of Systems: Gen: denies fevers, chills Eyes: denies vision changes ENT: denies sore throat Resp: denies cough, weezing CV: denies chest pain Endocrine: denies fatigue GI: denies abdominal pain MSK: see above Skin: denies rash Neuro: denies numbness, tingling OBJECTIVE BP BP (!) 158/114 Pulse 100 Temp 97.7 ???F (36.5 ???C) (Oral) Resp 16 SpO2 93% Constitutional: Awake AND alert. No distress. Head: Atraumatic. Cardiovascular: Radial pulses 2+. Pulmonary/Chest: No evidence of respiratory distress. Neurological: No focal deficits Psychiatric: Good eye contact. Normal affect Musculoskeletal: Atraumatic x 3. No edema. Distal pulses are equal and 2+. Extremities: Right hand Hand: Inspection: right hand with laceration of zone 2 of extensor tendons of right small finger, there are visible tendon fragments, and comminuted fracture of the MP, which is visisible on exam. RMF with partial amputation of the DP, with visible articular facet of the distal MP. There is no remaining nail plate or nail bed, but the palmar/volar soft tissue is all present. Superficial abrasion of tip of the right ring finger with partial splitting of nail. Stability: All joints stable to dorsal, volar, radial and ulnar stresses, except for DIPJ of RMF which is absent. Strength: Strength 5/5 in bilateral median, ulnar, radial nerve distributions; all digits, Strength 5/5 FDI, ABP, FPL, FDP IF, wrist ext, wrist flexion, except for extension of the RSF, which is absent. ROM: Full range of motion, all joints; bilateral hands, UE, except for PIPJ which is flexed at baseline with decreased extension. Vascular: Pulses 2+ radial, ulnar distributions; normal capillary refill; bilateral Neurologic: Normal sensation in median, ulnar, radial nerve distributions; bilaterally Imaging Pending upload from OSH Assessment/Plan: Tu is a 28 year old RHD male with multiple injuries to right hand after working at home with table saw. Including partial amputation of DP of RMF, laceration of the zone 2 extensor tendon of RSF with accompanying MP fracture. Superficial abrasion of tip of RRF. - revision amputation of RMF at bedside - laceration repair of RSF injury - splinting - will require surgical exploration and repair of structures as outpatient - Follow up with Dr. Puente's office for surgery (schedulers messaged) - [facility] - Dispo: per ED Procedure notes PROCEDURE NOTE: LACERATION REPAIR Verbal consent was obtained from the patient to repair the laceration. The laceration was located on the dorsum of the RMF MP and was U schaped and 3cm long. Anesthesia was obtained by local infiltration with 1% Lidocaine with epinephrine. The laceration was cleaned with normal saline under pressure. The area was prepped and draped in the usual sterile fashion. The wound was explored and no foreign body or bleeding was encountered. The laceration was down to tendon and bone. The site was then repaired with 3-0 chromic sutures with good approximation. Xeroform was placed over the site. The patient tolerated the procedure well. PROCEDURE NOTE: Revision amputation DIPJ RMF Verbal consent was obtained from the patient to repair the laceration. The injury was located on the dorsal aspect of the dIPJ of the RMF with almost complete absence of DP bone, absent nail plate and nail bed.Anesthesia was obtained by local infiltration with 1% Lidocaine with epinephrine. The wound was cleaned with normal saline under pressure. The area was prepped and draped in the usual sterile fashion. The wound was explored and no foreign body or bleeding was encountered. Scissors and forceps were used to remove the small remaining bone fragments that remained from the DP. These were discarded. At this point the articular facet of the distal MP of the RSF was exposed, and this was scraped thoroughly to remove cartilage. The skin overlying the amputated site was then approximated and closed primarily with 3-0 chromic sutures and 5-0 vicryl rapide with good approximation. Xeroform (more content not included)... Normal [facility] ED Clinical Summaryon 2024 ED Clinical Summary ED Clinical Summary [place] [id number] ED Clinical Summary Person Information Name: TU CASIANO I Raya/[facility] Age: 28 Years : 1995 Sex: Male Language: East Timorese PCP: NAHOMI CORRALES CNP Marital Status: Single Phone: [phone] Visit Id: Visit Reason: Hand pain-swelling; Finger laceration; Trauma - minor; cut 2 fingers deep Speciality: Acuity: 3 Enc Type: Emergency Med Service: Emergency Arrival: 05/29/2024 21:25:29 Discharge: 05/30/2024 00:08:11 LOS: 000 02:43 Checkin: 05/29/2024 21:25:29 Checkout: 05/30/2024 00:08:11 Dispo Type: Short-Term Hosp as IP EVENTS: Event Name Event Status Request Date/Time Start Date/Time Complete Date/Time Arrive Complete 05/29/2024 21:25:29 05/29/2024 21:25:29 05/29/2024 21:25:29 Document Home Meds Request 05/29/2024 21:25:29 Triage Complete 05/29/2024 21:25:29 05/29/2024 21:45:46 05/29/2024 21:45:46 Bed Assign Complete 05/29/2024 21:32:24 05/29/2024 21:32:24 05/29/2024 21:32:24 Dr Exam Complete 05/29/2024 21:32:24 05/29/2024 21:38:07 05/29/2024 21:38:07 RN Exam Complete 05/29/2024 21:32:24 05/29/2024 21:44:47 05/29/2024 21:44:47 Registration Complete 05/29/2024 21:38:07 05/29/2024 21:46:35 05/29/2024 21:46:35 Meds Admin Complete 05/29/2024 21:42:14 05/29/2024 22:07:17 Patient Care Request 05/29/2024 21:42:35 Reg Complete Request 05/29/2024 21:46:35 Reg Bed Request Complete 05/29/2024 21:46:35 05/29/2024 21:46:35 05/29/2024 21:46:35 X-Ray Complete 05/29/2024 21:53:47 05/29/2024 22:08:01 05/29/2024 22:08:46 Wet Read Request 05/29/2024 22:08:46 Patient Care Request 05/29/2024 22:09:32 Transfer Complete 05/29/2024 22:09:32 05/30/2024 00:10:36 05/30/2024 00:10:36 Trauma III Request 05/29/2024 22:18:35 Meds Admin Complete 05/29/2024 22:35:48 05/29/2024 22:47:10 Meds Admin Complete 05/29/2024 23:26:21 05/29/2024 23:35:25 Meds Admin Complete 05/29/2024 23:45:26 05/29/2024 23:53:52 Discharge Complete 05/30/2024 00:10:36 05/30/2024 00:10:36 05/30/2024 00:10:36 ADDRESS: [address] [place] [phone] PHYS DOC NOTES: MEDICAL INFORMATION: Prescriptions Given: Medications to Continue with No Changes Other Medications lisinopril (lisinopril 10 mg Tab) 1 Tablets By Mouth every day. Refills: 0. Misc Prescription (Blood Pressure Kit) Use at home daily. Refills: 0. naproxen (Naprosyn 500 mg Tab) 1 Tablets By Mouth 2 times a day. Refills: 0. PATIENT EDUCATION INFORMATION: Instructions: Follow up: DIAGNOSIS: Open displaced fracture of middle phalanx of finger of right hand Normal [facility] ED Patient Education Noteon 05-30-2024 ED Patient Education Note ED Patient Education Note Normal [facility] ED Patient Summaryon ED Patient Summary ED Patient Summary [address] [address] Patient Discharge Instructions Person Information Name: TU CASIANO I Age: 28 Years Arrival Date: 05/29/2024 21:25:29 Discharge Diagnosis: Open displaced fracture of middle phalanx of finger of right hand Primary Care Physician: NAHOMI CORRALES CNP Provider Information Primary Provider: Claudia Sierra DO Advanced [employer]uscript[employer] Curator:None The exam and treatment you received in the Emergency Department were for an urgent problem and are not intended as complete care. It is important that you follow up with a doctor, nurse practitioner, or physician???s surgical supply assistant for ongoing care. If your symptoms become worse or you do not improve as expected and you are unable to reach your usual health care provider, you should return to the Emergency Department. We are available 24 hours a day. TU CASIANO I has been given the following list of patient education materials, prescriptions and follow-up instructions: Follow-up Instructions: In the event that this physician does not participate in your insurance network, please consult with your insurance company to find a nearby participating provider. Patient Education Materials: A MESSAGE TO ALL PATIENTS REGARDING OPIOIDS PRESCRIPTION OPIOIDS: WHAT YOU NEED TO KNOW Prescription opioids can be used to help relieve sjadichq-rw-scpecw pain and are often prescribed following a surgery or injury, or for certain health conditions. These medications can be an important part of the treatment but also come with serious risks. It is important to work with your healthcare provider to make sure you are getting the safest, most effective care. WHAT ARE THE RISKS AND SIDE EFFECTS OF OPIOID USE? Prescription opioids carry serious risks of addiction and overdose, especially with prolonged use. An opioid overdose, often marked by slowed breathing, can cause sudden . The use of prescription opioids can have a number of side effects as well, even when taken as directed: ??? Tolerance???meaning you might need to take more of the medication for the same pain relief ??? Physical dependence???meaning you have symptoms of withdrawal when a medication is stopped ??? Increased sensitivity to pain ??? Constipation ??? Nausea, vomiting, and dry mouth ??? Sleepiness and dizziness ??? Confusion ??? Depression ??? Low levels of testosterone that can result in lower sex drive, energy, and strength ??? Itching and sweating RISKS ARE GREATER WITH: ??? History of drug misuse, substance use disorder, or overdose ??? Mental health conditions (such as depression or anxiety) ??? Sleep apnea ??? Older age (65 years and older) ??? Avoid alcohol while taking prescription opioids. Also, unless specifically advised by your health care provider, medications to avoid include: ??? Benzodiazepines (such as Xanax or Valium) ??? Muscle relaxants (such as Soma or Flexeril) ??? Hypnotics (such as Ambien or Lunesta) ??? Other prescription opioids KNOW YOUR OPTIONS Talk to your health care provider about ways to manage your pain that don???t involve prescription opioids. Some of these options may actually work better and have fewer risks and side effects. Options may include: ??? Pain relievers such as acetaminophen, ibuprofen, and naproxen ??? Some medication that are also used for depression or seizures ??? Physical therapy and exercise ??? Cognitive behavioral therapy, a psychological, goal-directed approach, in which patients learn how to modify physical, behavioral, and emotional triggers of pain and stress. IF YOU ARE PRESCRIBED OPIOIDS FOR PAIN: ??? Never take opioids in greater amounts or more often than prescribed. ??? Follow up with your primary health care provider. o Work together to create a plan on how to manage your pain. o Talk about ways to help manage your pain that don???t involve prescription opioids. o Talk about any and all concerns and side effects. ??? Help prevent misuse and abuse o Never sell or share prescription opioids. o Never use another person???s prescription opioids. ??? Store prescription opioids in a secure place and out of reach of others (this may include visitors, children, friends, and family). ??? Safely dispose of unused prescription opioids: Find your community drug take-back program or your pharmacy mail-back program, or flush them down the toilet, following guidance from the Food and Drug Administration (www.fda.gov/Drugs/R esourcesForYou). ??? Visit www.cdc.gov/drugover dose to learn about the risks of opioids abuse and overdose. ??? If you believe you may be struggling with addiction, tell your health foster care case manager and ask for guidance or call [facility]???S upad Helpline at 6-358-278-HELP. v Source: Department of [employer] and [facility] (more content not included)... [facility] ED Provider Noteson 05-30-19 French Translator Authentication Interface Message Text EMERGENCY DEPARTMENT - VISIT NOTE HISTORY OF PRESENT ILLNESS ------ Chief Complaint Patient presents with Hand/finger symptoms Hand injury from a table saw, sent from [facility] Autom[employer] Service Assistant: not needed - patient preferred language is [place]. The history is provided by the Patient. Tu Johnson is a 28 year old male right-hand dominant presenting to the ED for multiple lacerations to his right hand after table saw accident.. Patient endorses he was using a table saw when he accidentally cut his 3rd and 5th digits. Patient endorses some numbness and tingling to the digits as well as severe pain. He was having trouble moving the 5th digit. Patient was transferred here from [facility] for surgical consultation. On chart review, patient was complete laceration through the extensor tendon on the 5th digit with multiple comminuted fractures. X-ray shows more for comminuted fractures. Patient received Ancef, digital nerve block, morphine, Zofran, updated tetanus. PHYSICAL EXAM --- BP (!) 158/114 Pulse 100 Temp 97.7 ???F (36.5 ???C) (Oral) Resp 16 SpO2 93% Exam: Constitutional: Nursing triage notes reviewed and Vital signs reviewed Lung: Clear to auscultation and No wheezing Cardiac: Regular rate and rhythm and No murmurs Abdomen: Soft and Nondistended Back: No midline bony tenderness to thoracic/lumbar/sacr al spines Ext: Right hand wrapped in dressing, dressing with moderate strike through, 2+ radial pulses on the affected able to move 1st and 2nd digit, able to flex at the MCP of digits 3, 4, and 5. Neuro: Alert normally oriented and CN 3-12 intact Skin: No rash or lesion Psych: Normal affect MEDICAL DECISION MAKING and ED COURSE - Nursing triage and assessment notes reviewed and incorporated. Independent Test Interpretation: Xrays personally reviewed and interpreted, . Final decision-making pending radiology read. Evaluated by EM attending Leonardo Roberts Course: ED Course as of 05/30/24 1128 Sun May 30, 2024 0156 BP(!): 158/114 [MY] 0156 Temperature: 97.7 ???F (36.5 ???C) [MY] 0156 Heart Rate: 100 [MY] 0156 Respiratory Rate: 16 [MY] 0156 SpO2: 93 % [MY] 1121 XR HAND RIGHT 2 VIEW (For Post Reduction only) I reviewed the post splint x-ray 1. Overlying cast material obscures finer bony detail. Overall, alignment of the phalanx subluxations is improved as compared to powershare images. 2. Traumatic subluxation of the third distal interphalangeal joint with partial amputation of the third distal phalanx occurring just distal to the base. 3. Traumatic subluxation of the fifth proximal interphalangeal joint with fractures of the proximal phalangeal head and intermediate phalangeal base. A prominent osseous fragment is seen at the medial aspect of the joint. [MY] ED Course User Index [MY] Kenji Flores, Assessment AND Plan: Tu Johnson is a 28-year-old male with a past medical history listed above who presents to the emergency department as a transfer from [facility] for hand surgery consult. On initial presentation patient was resting comfortably in his hemodynamically stable and afebrile. Outside images were reviewed which is consistent with traumatic subluxation of the third distal interphalangeal joint with partial amputation of the third distal phalanx occurring just distal to the base and traumatic subluxation of the fifth proximal interphalangeal joint with fractures of the proximal phalangeal head and intermediate phalangeal base. Patient received updated tetanus, IV antibiotics and pain control prior to evaluation at [facility]. Hand surgery was consulted, evaluated the patient at bedside, and repaired the laceration as well as splinted the injury at bedside. Recommended follow up with Plastic surgery Clinic as well as antibiotics. Patient was given short course of oxycodone for pain. Patient was pain was well-controlled in the emergency department. Workup and findings were discussed with the patient and all questions were answered. IMPRESSION AND DISPOSITION -------- Clinical Impression Diagnosis Comment Traumatic amputation of finger, initial encounter [S68.119A] Laceration of finger of right hand without foreign body with damage to nail, unspecified finger, initial encounter [Y11.319A] Right hand pain [M79.641] Disposition: Home The patient has received a medical screening examination and within reasonable clinical confidence an emergency medical condition has not been identified. Counseling: Spoke with the patient and discussed today's findings, in addition to providing specific details for the plan of care and expected course. They were given the opportunity to ask questions. Discussed return precautions and importanc (more content not included)... Normal [facility] No Panel Informationon 05-30 Interpretation and review of laboratory results Normal [facility] PARTIAL THROMBOPLASTIN TIMEo n 05-30-2024 aPTT Coag (Bld) [Time] 30 s [facility] aPTT Coag (Bld) [Time] 30 s Normal 25-37 [facility] Comment on above: Performed By: #### A PTT, PT ####[facility] [id number] [place], [place], PROTHROMBIN TIME AND INRon 0 05-30-2024 INR Coag (PPP) [Relative time] 1.04 {INR} 0.90 - 1.10 [facility] PT Coag (PPP) [Time] 11.6 s [facility] INR Coag (PPP) [Relative time] 1.04 {INR} Normal 0.90-1.10 [facility] Comment on above: Performed By: #### A PTT, PT ####[facility] [id number] [place], [place], PT Coag (PPP) [Time] 11.6 s Normal 9.7-12.9 [facility] Comment on above: Performed By: #### A PTT, PT ####[facility] [id number] [place], [place], TYPE AND SCREENon 05-30-2024 ABO and Rh group Nom (Bld) Blood group O Rh(D) positive [facility] ABO and Rh group Nom (Bld) No Previous Results [facility] Blood group antibody screen Ql Negative [facility] ABO and Rh group Nom (Bld) Blood group O Rh(D) positive Normal [facility] Comment on above: Performed By: #### T S #### [facility] [address] [place], [place], ABO and Rh group Nom (Bld) No Previous Results Normal [facility] Comment on above: Performed By: #### T S #### [facility] [address] [place], [place], ABSC INT Negative Normal [facility] Comment on above: Performed By: #### T S #### [facility] [address] [place] [address], [phone] XR HAND RIGHT 2 VIEWSon XR HAND RIGHT 2 VIEWS EXAMINATION: XR HAND RIGHT 2 VIEWSPRO/RT 05/30/2024 05:36 AM CLINICAL HISTORY: post reduction COMPARISON: None IMPRESSION: 1. Overlying cast material obscures finer bony detail. Overall, alignment of the phalanx subluxations is improved as compared to powershare images. 2. Traumatic subluxation of the third distal interphalangeal joint with partial amputation of the third distal phalanx occurring just distal to the base. 3. Traumatic subluxation of the fifth proximal interphalangeal joint with fractures of the proximal phalangeal head and intermediate phalangeal base. A prominent osseous fragment is seen at the medial aspect of the joint. Right hand MACRO: None I have personally reviewed the images and agree with the resident's interpretation. Normal [facility] XR Hand - right 2 Viewson EXAMINATION: XR HAND RIGHT 2 VIEWSPRO/RT 05/30/2024 05:36 AM CLINICAL HISTORY: post reduction COMPARISON: None IMPRESSION: 1. Overlying cast material obscures finer bony detail. Overall, alignment of the phalanx subluxations is improved as compared to powershare images. 2. Traumatic subluxation of the third distal interphalangeal joint with partial amputation of the third distal phalanx occurring just distal to the base. 3. Traumatic subluxation of the fifth proximal interphalangeal joint with fractures of the proximal phalangeal head and intermediate phalangeal base. A prominent osseous fragment is seen at the medial aspect of the joint. Right hand MACRO: None I have personally reviewed the images and agree with the resident's interpretation. RADIOLOGY German Pagan MD - 05/30/2024 EXAMINATION: XR HAND RIGHT 2 VIEWSPRO/RT 05/30/2024 05:36 AM CLINICAL HISTORY: post reduction COMPARISON: None IMPRESSION: 1. Overlying cast material obscures finer bony detail. Overall, alignment of the phalanx subluxations is improved as compared to powershare images. 2. Traumatic subluxation of the third distal interphalangeal joint with partial amputation of the third distal phalanx occurring just distal to the base. 3. Traumatic subluxation of the fifth proximal interphalangeal joint with fractures of the proximal phalangeal head and intermediate phalangeal base. A prominent osseous fragment is seen at the medial aspect of the joint. Right hand MACRO: None I have personally reviewed the images and agree with the resident's interpretation. [facility] [employer] Radiology Study observation (narrative) [facility] XR Hand - right 2 ViewsOrder ed By: German Pagan on 05-30-2024 [facility] Work Phone: XR Hand 3+ Views Righton XR Hand 3+ Views Right Exam Date/Time: 05/29/2024 22:08 EST Reason for Exam: Pain, Traumatic Report IMPRESSION: Injury/fracture/lace rations of the third and fifth digit as discussed. EXAMINATION/TECHNIQU E: XR Hand 3+ Views Right HISTORY: Injury of the right hand with saw. Cut the third and fifth digits. COMPARISON: None RESULT: Amputation/laceratio n of the third digit involving the majority of the third digit distal phalanx with some residual osseous fragments. Complex injury involving the fifth digit with laceration, and multiple comminuted fracture fragments, mainly involving the fifth digit middle phalanx. Other digits appear intact. No significant degenerative changes. No distinct radiopaque foreign body. No other significant abnormality. Ordering Provider: Claudia Sierra FINAL REPORT Dictated: 05/30/2024 12:15 pm Stevie Oropeza MD. Signed (Electronic Signature): 05/30/2024 12:15 pm Signed by: Stevie Oropeza MD Transcribed by: NANDA Technologist: JC T[facility] ED Note-Physicianon 05-29-19 ED Note-Physician ED Note-Physician Basic Information Time Seen: Claudia Sierra DO 05/29/2024 21:38 Chief Complaint pt was using saw and cut right third and fifth finger. pt needs tdap. bleeding controlled. History of Present Illness Patient is a 28-year-old male cybie-dkvz-xvgtvfgl presenting to the ED for evaluation of injury to his right third and fifth digit. Patient was using a table saw when he accidentally got his third and fifth digits. Patient's tetanus is not up-to-date, does note some numbness and tingling to the digits. Patient states he is having difficulty moving the fifth digit. Review of Systems A 10 point review of systems is negative except as noted above. Medical and Surgical History: Reviewed and noted Social history: Lives at home Tobacco: Denies Physical Exam Vitals & Measurements T: 37.2 ???C(Oral) HR: 112(Peripheral) RR: 20 BP: 153/110 SpO2: 95% HT: 182 cm WT: 116 kg BMI: 35.02 General: Well developed, non toxic appearing, no acute distress HEENT: Head atraumatic, Mucosa moist, hearing grossly normal Neck: No JVD, tracheal deviation Cardiac: Regular rate, rhythm, no murmurs, or gallops, 2+ radial pulses Respiratory: Lungs clear to auscultation B/L, normal respiratory effort Extremities: Extensive laceration noted to distal aspect of the third digit, there is a large laceration through the PIP joint on the fifth digit with dislocation of the joints, multiple comminuted fragments noted, the extensor mechanism is lacerated Neurologic: Alert and oriented, speech clear Skin: No rashes or lesions Psych: Appropriate mood and behavior Medical Decision Making MEDICAL DECISION MAKING Number and Complexity of Problems Differential Diagnosis: [] [facility] Data External documents reviewed: [] My EKG interpretation: [] My CT interpretation: [] My X-ray interpretation: [] My Ultrasound interpretation: [] Decision rules/scores evaluated: [] Discussed with: [] Treatment and Disposition ED Course: Patient is a 28-year-old male presenting to the ED for evaluation of multiple lacerations to his right hand. Trauma level 3 was called on his arrival due to significant laceration. Patient has complete laceration through the extensor tendon on the fifth digit, with multiple comminuted fractures obtained patient is given 2 g of Ancef tetanus is updated patient is also given morphine and Zofran. Digital block is applied using 1% lidocaine without epinephrine to the third and fifth digit. X-ray shows multiple comminuted fractures. Discussed the case with orthopedics Dr. Baxter who recommends transfer for hand surgery. Patient is in agreement. I spoke with trauma surgery Dr. Ramirez was in agreement with plan. Patient is accepted as a trauma transfer to [facility]. Shared decision making: [] Code status: [] Assessment/Plan Open displaced fracture of middle phalanx of finger of right hand (S62.629B: Displaced fracture of middle phalanx of unspecified finger, initial encounter for open fracture) Orders: cefazolin + Sodium Chloride 0.9% intravenous solution 50 mL, 2 gram = 1 EA, IV Piggyback, Once, Stop date 05/29/24 21:41:00 EST, STAT, Start date 05/29/24 21:41:00 EST, 100 mL/hr, Infuse over 30 minute(s), 05/29/24 21:41:00 EST morphine, 4 mg = 1 mL, Injection, IV Push, Once, Stop date 05/29/24 21:41:00 EST, STAT, Start date 05/29/24 21:41:00 EST, 05/29/24 21:41:00 EST ondansetron, 4 mg = 2 mL, Injection, IV Push, Once, Stop date 05/29/24 21:41:00 EST, STAT, Start date 05/29/24 21:41:00 EST, 05/29/24 21:41:00 EST tetanus/diphtheria/p ertussis, acel (Tdap), 0.5 mL, Injection, Intramuscular-Immuni zation, Once, Stop date 05/29/24 21:41:00 EST, STAT, Start date 05/29/24 21:41:00 EST Transfer Patient XR Hand 3+ Views Right Medications Administered Given morphine 4 mg/mL Inj, 4 mg, IV Push Sodium Chloride 0.9% intravenous solution 50 mL + cefazolin additive 2 gm, IV Piggyback tetanus/diphtheria/p ertussis, acel (Tdap) 5 units-2.5 units-18.5 mcg/0.5 mL intramuscular suspension, 0.5 mL, Intramuscular-Immuni zation Zofran 4 mg/2 mL Injection, 4 mg, IV Push diphtheria/pertussis , acel/tetanus adult, Intramuscular-Immuni zation Disposition Plan Patient Discharge Condition Fair Discharge Disposition Transfer to [facility] Discharge Prescription List Prescriptions No active prescription medications Follow-up No qualifying data available Problem List/Past Medical History Ongoing Chronic tonsillitis Smoker Historical No qualifying data Procedure/Surgical History tonsillectomy (02/09/2014), denies. Medications Inpatient No active inpatient medications Home Blood Pressure Kit, See Instructions lisinopril 10 mg Tab, 10 mg= 1 tab(s), Oral, Daily Naprosyn 500 mg Tab, 500 mg= 1 tab(s), Oral, BID Allergies No Known Allergies Social History Alcohol - High Risk, 02/07/2022 Current, 3-5 times per week, 05/23/2021 Current, Beer, 1-2 times per week, Alcohol use i (more content not included)... [facility] Comment on above: Result Comment: Elec tronically Signed By: Claudia Sierra DO\.br\Date and Time Signed: 05/29/24 22:33 EST Registrationon 09-26-2023 Registration [id number] [facility] COVID-19 Antigenon 1 COVID-19 Antigen Healthcare Worker?: N Andrés Reference Andrés Reference Negative SARS-CoV+SARS-CoV-2 (COVID-19) Ag [Presence] in Respiratory specimen by Rapid immunoassay Negative for SARS Antigen by MICHAEL COVID19 Blank Space Andrés Disclaimer Negative results, from patients with symptom Andrés Disclaimer onset beyond five days, should be treated as Andrés Disclaimer presumptive and confirmation with a molecular Andrés Disclaimer assay, if necessary, for patient management, Andrés Disclaimer may be performed. Negative results do not rule Andrés Disclaimer out COVID-19 and should not be used as the sole Andrés Disclaimer basis for treatment or patient management Andrés Disclaimer decisions, including infection control decisions. Andrés Disclaimer Negative results should be considered in the Andrés Disclaimer context of a patient's recent exposures, history Andrés Disclaimer and the presence of clinical signs and symptoms Andrés Disclaimer consistent with COVID-19. COVID19 Blank Space Andrés Disclaimer The Andrés SARS Antigen MICHAEL does not differentiate Andrés Disclaimer between SARS-CoV and SARS-CoV-2. COVID19 Blank Space Anrdés Disclaimer This test was developed and its performance Andrés Disclaimer characteristic determined by [employer] and Andrés Disclaimer validated at [facility]. This Andrés Disclaimer test has not been FDA cleared or approved. This Andrés Disclaimer test has been authorized by FDA under an Emergency Use Andrés Disclaimer Authorization (EUA). This test has been validated Andrés Disclaimer in accordance with the FDA's Guidance Document (Policy Andrés Disclaimer for Diagnostics Testing in Laboratories Certified to Andrés Disclaimer Perform High Complexity Testing under CLIA prior to Andrés Disclaimer Emergency Use Authorization for Coronavirus Andrés Disclaimer iseas during the Public Health Emergency) Andrés Disclaimer issued on July 29, 2019. This test is only authorized Andrés Disclaimer for the duration of time the declaration that Andrés Disclaimer circumstances exist justifying the authorization of Andrés Disclaimer the emergency use of in vitro diagnostic tests for Andrés Disclaimer detection of SARS-CoV-2 virus and/or diagnosis of Andrés Disclaimer COVID-19 infection under section 564(b)(1) of the Andrés Disclaimer Act, 21 U.S.C. 360bbb-3(b)(1), unless the Andrés Disclaimer authorization is terminated or revoked sooner. PERFORMED BY: [facility] [place] [address] PATHOLOGIST VIDEO SURVEILLANCE TECHNICIAN CHRISTINA AGUIRRE M.D. [facility] Comment on above: Performed By: #### C OVID-19 ANDRÉS, SOFIANEG #### [facility] [address] [place] [address] Andrés Ag Negativeon 08-29-19 Andrés Ag Negative Negative Normal Negative [facility] Comment on above: Result Comment: This is a duplicate Andrés SARS Antigen (MICHAEL) result to be used for statistical tracking purpose only. PERFORMED BY: [place] [address] PATHOLOGIST VIDEO SURVEILLANCE TECHNICIAN CHRISTINA AGUIRRE M.D. Performed By: #### C OVID-19 ANDRÉS, SOFIANEG #### [facility] [address] [place] [address] XR chest 1V portableon 08-28 XR chest 1V portable [facility] Main [place] [address] [place] [address] XRay Report Signed Patient: Tu Casiano I MR#: [id number] : 1995 Acct:[id number] Age/Sex: 24 / M ADM Date: 08/28/20 Loc: ER Room: Type: [facility] ER Attending Dr: Ordering Provider: AFSANEH Marie Date of Service: 08/28/20 XR/XR chest 1V portable: Upper Respiratory Infection Copies to: AFSANEH Marie Chest 08/28/2020. CLINICAL DATA: Cough. FINDINGS: A single portable frontal view of the chest was obtained. No prior study is available for comparison. The cardiac silhouette is normal in size. The pulmonary vasculature is within normal limits. No pulmonary consolidation or collapse is identified. No pneumothorax or pleural effusion is seen. XR/XR chest 1V portable IMPRESSION: No acute cardiopulmonary disease. Impression dictated by: Ron Hudson Jr., M.D.08/28/2020 4:31 PM Dictation Location: [place] [address] Transcribed By: [facility] 08/28/20 1631 Dictated By: Ron Hudson Jr, MD 08/28/20 1629 Signed By: 08/28/20 1631 [facility] Vital Signs Date Time Vital Sign Value Performing Clinician Facility 10-05-2024 10:14-0400 Body height 182.88 cm [facility] 10-05-2024 10:14-0400 Body mass index (BMI) [Ratio] 34 kg/m2 [facility] 10-05-2024 10:14-0400 Body temperature 97.3 [degF] [facility] 10-05-2024 10:14-0400 Body weight 113.62 kg [facility] 10-05-2024 10:14-0400 Diastolic blood pressure 84 mm[Hg] [facility] 10-05-2024 10:14-0400 Heart rate 90 /min [facility] 10-05-2024 10:14-0400 SaO2% (BldA) [Mass fraction] 95 % [facility] [facility] 10-05-2024 10:14-0400 Systolic blood pressure 134 mm[Hg] [facility] 09-06-2024 09:44-0400 Body height 182.88 cm [facility] 09-06-2024 09:44-0400 Body mass index (BMI) [Ratio] 34.5 kg/m2 [facility] 09-06-2024 09:44-0400 Body temperature 96.3 [degF] [facility] 09-06-2024 09:44-0400 Body weight 115.66 kg [facility] 09-06-2024 09:44-0400 Diastolic blood pressure 92 mm[Hg] [facility] 09-06-2024 09:44-0400 Heart rate 87 /min [facility] 09-06-2024 09:44-0400 SaO2% (BldA) [Mass fraction] 94 % [facility] 09-06-2024 09:44-0400 Systolic blood pressure 140 mm[Hg] [facility] 06-09-2024 17:13-0500 Body temperature 98.1 [degF] Cely Puente MD Work Phone: [facility] 06-09-2024 17:13-0500 Diastolic blood pressure 100 mm[Hg] Cely Puente MD Work Phone: [employer] 06-09-2024 17:13-0500 Heart rate 69 /min Cely Puente MD Work Phone: [facility] 06-09-2024 17:13-0500 Respiratory rate 20 /min Cely Puente MD Work Phone: [facility] 06-09-2024 17:13-0500 SaO2% (BldA) [Mass fraction] 93 % Cely Puente MD Work Phone: [facility] 06-09-2024 17:13-0500 Systolic blood pressure 151 mm[Hg] Cely Puente MD Work Phone: [facility] 06-09-2024 10:57-0500 Body height 182.9 cm Cely Puente MD Work Phone: [facility] 06-09-2024 10:57-0500 Body mass index (BMI) [Ratio] 34.58 kg/m2 Cely Puente MD Work Phone: [facility] 06-09-2024 10:57-0500 Body weight 115.67 kg Cely Puente MD Work Phone: [facility] 06-01-2024 08:00-0500 Body height 182.9 cm Elma Parra [facility] 06-01-2024 08:00-0500 Body mass index (BMI) [Ratio] 34.58 kg/m2 [facility] Par[facility] 06-01-2024 08:00-0500 Body weight 115.67 kg [address] Parra [facility] 05-30-2024 01:34-0500 Body temperature 97.7 [degF] Leonardo Roberts MD Work Phone: [facility] 05-30-2024 01:34-0500 Diastolic blood pressure 114 mm[Hg] Leonardo Roberts MD Work Phone: [facility] 05-30-2024 01:34-0500 Heart rate 100 /min Leonardo Roberts MD Work Phone: [facility] 05-30-2024 01:34-0500 Respiratory rate 16 /min Leon[facility] Roberts MD [facility] 05-30-2024 01:34-0500 SaO2% (BldA) [Mass fraction] 93 % Leon[facility] Roberts [facility] 05-30-2024 01:34-0500 Systolic blood pressure 158 mm[Hg] Leonardo Roberts MD Work Phone: [facility] 05-30-2024 00:03-0500 Diastolic blood pressure 122 mm[Hg] Kaylinn Dokken [facility] 05-30-2024 00:03-0500 Heart rate 105 /min Kaylinn Dokken [facility] 05-30-2024 00:03-0500 Mean blood pressure 140 mm[Hg] Kaylinn Dokken [facility] 05-30-2024 00:03-0500 Respiratory rate 22 /min Kaylinn Dokken [facility] 05-30-2024 00:03-0500 SaO2% (BldA) [Mass fraction] 95 % Kaylinn Dokken [facility] 05-30-2024 00:03-0500 Systolic blood pressure 177 mm[Hg] Kaylinn Dokken [facility] 05-29-2024 23:38-0500 Body temperature 98.96 [degF] Kaylinn Dokken [facility] 05-29-2024 23:38-0500 Diastolic blood pressure 109 mm[Hg] Kaylinn Dokken [facility] 05-29-2024 23:38-0500 Heart rate 98 /min Kaylinn Dokken [facility] 05-29-2024 23:38-0500 Mean blood pressure 124 mm[Hg] Kaylinn Dokken [facility] 05-29-2024 23:38-0500 Respiratory rate 22 /min Kaylinn Dokken [facility] 05-29-2024 23:38-0500 SaO2% (BldA) [Mass fraction] 95 % Kaylinn Dokken [facility] 05-29-2024 23:38-0500 Systolic blood pressure 155 mm[Hg] Kaylinn Dokken [facility] 05-29-2024 23:08-0500 Diastolic blood pressure 120 mm[Hg] Kaylinn Dokken [facility] 05-29-2024 23:08-0500 Heart rate 93 /min Kaylinn Dokken [facility] 05-29-2024 23:08-0500 Mean blood pressure 134 mm[Hg] Kaylinn Dokken [facility] 05-29-2024 23:08-0500 Respiratory rate 20 /min Kaylinn Dokken [facility] 05-29-2024 23:08-0500 SaO2% (BldA) [Mass fraction] 95 % Kaylinn Dokken [facility] 05-29-2024 23:08-0500 Systolic blood pressure 162 mm[Hg] Kaylinn Dokken [facility] 05-29-2024 21:58-0500 Body temperature 98.96 [degF] Kaylinn Dokken [facility] 05-29-2024 21:38-0500 Body temperature 98.96 [degF] Claudia Sierra [facility] 05-29-2024 21:38-0500 Heart rate 112 /min Claudia Sierra [facility] 04-06-2023 11:05-0500 Body height 177.8 cm Elizabeth Aimee Other [facility] Other 04-06-2023 11:05-0500 Body mass index (BMI) [Ratio] 32.48 kg/m2 Elizabeth Aimee Other [facility] Other 04-06-2023 11:05-0500 Body temperature 98.7 [degF] Elizabeth Aimee Other [facility] Other 04-06-2023 11:05-0500 Body weight 102.7 kg Elizabeth Lowrymond Other [facility] Other 04-06-2023 11:05-0500 Diastolic blood pressure 110 mm[Hg] Elizabeth Aimee Other [facility] Other 04-06-2023 11:05-0500 Respiratory rate 18 /min Elizabeth Aimee Other [facility] Other 04-06-2023 11:05-0500 SaO2% (BldA) [Mass fraction] 97 % Elizabeth Aimee Other [facility] Other 04-06-2023 11:05-0500 Systolic blood pressure 155 mm[Hg] Elizabeth Aimee Other [facility] Other 06-23-2022 00:00-0500 Diastolic blood pressure 90 mm[Hg] Sd Joi [facility] 06-23-2022 00:00-0500 Heart rate 97 /min Sd Joi [facility] 06-23-2022 00:00-0500 SaO2% (BldA) [Mass fraction] 97 % Sd Joi [facility] 06-23-2022 00:00-0500 Systolic blood pressure 138 mm[Hg] Sd Joi [facility] 06-22-2022 23:00-0500 Diastolic blood pressure 80 mm[Hg] Sd Joi [facility] 06-22-2022 23:00-0500 Heart rate 98 /min Sd Joi [facility] 06-22-2022 23:00-0500 SaO2% (BldA) [Mass fraction] 98 % Sd Joi [facility] 06-22-2022 23:00-0500 Systolic blood pressure 145 mm[Hg] Sd Joi [facility] 06-22-2022 21:25-0500 Body temperature 97.88 [degF] Sd Joi [facility] 06-22-2022 21:25-0500 Diastolic blood pressure 93 mm[Hg] Sd Joi [facility] 06-22-2022 21:25-0500 Heart rate 99 /min Sd Joi [facility] 06-22-2022 21:25-0500 Respiratory rate 16 /min Sd Joi [facility] 06-22-2022 21:25-0500 SaO2% (BldA) [Mass fraction] 96 % Sd Tamez [facility] 06-22-2022 21:25-0500 Systolic blood pressure 155 mm[Hg] Sd Tamez [facility] Encounters Encounter Date Encounter Type Care Provider Facility Start: 10-05-2024 End: 10-05-2024 ambulatory [facility] Work Phone: Start: 10-05-2024 End: 10-05-2024 Patient encounter procedure [facility] Work Phone: Start: 09-06-2024 End: 09-06-2024 ambulatory [facility] Work Phone: Start: 09-06-2024 End: 09-06-2024 Patient encounter procedure [facility] Work Phone: Start: 08-01-2024 End: 08-02-2024 Refill Charlene Nick PA-C Work Phone: [facility] Comment on above: Refill Start: 07-23-2024 End: 07-23-2024 ambulatory UNKNOWN PROVIDER Facility:[facility] Start: 07-23-2024 End: 07-23-2024 ambulatory ALI TOTONCHI Facility:[facility] Start: 07-22-2024 ambulatory UNKNOWN PROVIDER Facili ty:[facility] Start: 07-22-2024 Encounter for other preprocedural examination UNKNOWN PROVIDER [facility] Start: 07-09-2024 End: 07-09-2024 ambulatory UNKNOWN PROVIDER Facility:[facility] Start: 06-23-2024 End: 06-23-2024 ambulatory UNKNOWN PROVIDER Facility:[facility] Start: 06-15-2024 ambulatory UNKNOWN PROVIDER Facili ty:[facility] Start: 06-15-2024 End: 06-15-2024 ambulatory UNKNOWN PROVIDER Facility:[facility] Start: 06-11-2024 End: 06-12-2024 Refill Stevie Glasgow MD Work Phone: [facility] Comment on above: Refill Start: 06-09-2024 End: 06-09-2024 ambulatory CELY PUENTE Facility:[facility] Start: 06-09-2024 End: 06-09-2024 ambulatory [facility] PU[facility]E [facility] Start: 06-09-2024 End: 06-09-2024 ambulatory CELY PUENTE [facility] Start: 06-09-2024 End: 06-09-2024 Subsequent hospital visit by physician Cely Puente MD Work Phone: [facility] Comment on above: Open displaced fract ure of middle phalanx of left index finger with routine healing, subsequent encounter (Primary Dx); Postoperative pain Start: 06-02-2024 End: 06-02-2024 Patient encounter procedure Federico Galeana OTR/L, CHT [facility] Comment on above: OT Evaluation (Clini c 1) Start: 06-02-2024 End: 06-02-2024 ambulatory UNKNOWN PROVIDER Facility:[facility] Start: 06-02-2024 End: 06-02-2024 Office outpatient new 45 minutes Charlene Nick PA-C Work Phone: [facility] Comment on above: Hand laceration invo lving tendon, right, subsequent encounter (Primary Dx); Traumatic amputation of finger, initial encounter; Acute pain due to injury Start: 06-02-2024 End: 06-02-2024 ambulatory UNKNOWN PROVIDER Facility:[facility] Start: 06-01-2024 End: 06-01-2024 Telephone encounter Cely uPente MD Work Phone: [facility] Start: 06-01-2024 End: 06-01-2024 Nursing evaluation of patient and report Elma Parra RN [facility] [place] Pre-Admission Testing Comment on above: Pre-op evaluation (P rimary Dx) Start: 06-01-2024 End: 06-01-2024 Preprocedural examination done Elma Parra RN [facility] Start: 06-01-2024 ambulatory UNKNOWN PROVIDER Facili ty:[facility] Start: 05-30-2024 End: 05-30-2024 Admission to same day surgery center Stevie Paiz MD Work Phone: [facility] Start: 05-30-2024 Emergency department patient visit UNKNOWN PROVIDER Facility:[facility] Start: 05-30-2024 End: 05-30-2024 Emergency department patient visit UNKNOWN PROVIDER Facility:[facility] Comment on above: Hand/finger symptoms (Hand injury from a table saw, sent from OSH) Start: 05-29-2024 End: 05-30-2024 Emergency department patient visit Claudia Sierra [facility] Start: 09-19-2023 End: 09-19-2023 [facility]ulatory [facility] Start: 2023 ambulatory [facility] Start: 04-06-2023 End: 04-06-2023 ambulatory Elizabeth Yu Other [facility] Other Start: 04-06-2023 Office outpatient ne w 10 minutes Elizabeth Yu [facility] Start: 06-24-2022 End: 06-24-2022 Patient encounter procedure NAHOMI Gerard CORRALES [facility] [place] Start: 06-22-2022 End: 06-23-2022 Emergency department patient visit Sd Tamez [facility] Start: 07-29-2016 End: 07-30-2016 Ambulatory PROVIDER UNKNOWN Facility:[facility] Procedures Date Procedure Procedure Detail Performing Clinician Start: 06-09-2024 Us guidance needle placement img s&i Chuck Lovell MD Work Phone: Start: 06-09-2024 Fluoroscopy up to 1 hour physician/qhp time Aristides Matta MD Work Phone: Start: 06-09-2024 End: 06-09-2024 REDUCTION, OPEN, HAND Cely Puente MD Work Phone: Start: 06-09-2024 End: 06-09-2024 REPAIR, TENDON, EXTENSOR Cely Puente MD Work Phone: Start: 05-30-2024 Radex hand 2 views Palg isidoro Zamora MD Work Phone: Start: 05-30-2024 Blood typing, ABO, R ho(D) and RBC antibody screening Leonardo Roberts MD Work Phone: Start: 05-30-2024 Thromboplastin time partial plasma/whole blood Leonardo Roberts MD Work Phone: Start: 02-09-2014 Tonsillectomy Sd Kiara vera denies Sd Tamez Plan of Treatment Date Care Activity Detail Author Start: 09-13-2047 Shingles (RZV) Vacci ne (1 of 2) Shingles (RZV) Vaccine (1 of 2) [facility] Start: 05-29-2034 Tetanus vaccination Tetanus (T d or Tdap) Booster [facility] Start: 2024 HPV Vaccine (optiona l start 27-45 years) HPV Vaccine (optional start 27-45 years) [facility] Start: 08-03-2024 End: 08-03-2024 Patient encounter procedure 08/03/2024 1:45 PM EDT Office Visit [facility] [address] [place] [id number] Charlene Nick PA-C [address] [place] [address] [facility] Start: 12-28-2023 COVID-19 Vaccine ( season) COVID-19 Vaccine ( season) [facility] Start: 2016 Hepatitis A (HAV) Vaccine (optional start 19+ years) Hepatitis A (HAV) Vaccine (optional start 19+ years) [facility] Start: 2016 Pneumococcal vaccination Pneum ococcal Vaccine(s) (1 of 2 - PCV) [facility] Start: 09-13-2015 Hepatitis C screening Hepatitis C An tibody [facility] Start: 2012 HIV screening HIV Test [facility] Start: 2012 Vaccination for kell n papillomavirus HPV Vaccine (1 - Male 3-dose series) [facility] Start: 06-28-1998 Hepatitis B vaccination Hepati tis B (HBV) Vaccine (3 of 3 - 3-dose series) [facility] Comprehensive metabo lic 1999 panel - Serum or Plasma [facility] Repair extensor tend on finger w/o graft each REPAIR, EXTENSOR TENDON, FINGER, PRIMARY/SECONDARY; W/O FREE GRAFT, EACH TENDON Procedures Routine Open displaced fracture of middle phalanx of left index finger with routine healing, subsequent encounter Ordered: 06/09/2024 [employer] Work Phone: Comment on above: Ordered: 06/09/2024 [facility] Immunizations Immunization Date Immunization Notes Care Provider Fa cility 05-29-2024 tetanus toxoid, reduced diphtheria toxoid, and acellular pertussis vaccine, adsorbed; Translations: [Boostrix (Tdap)] Claudia Sierra [facility] 08-08-1999 diphtheria, tetanus toxoids and acellular pertussis vaccine, unspecified formulation Charlene Nick PA-C Work Phone: [facility] 08-08-1999 haemophilus influenz ae type b vaccine, PRP-OMP conjugate Charlene BENAVIDEZ-Cielo Work Phone: [facility] 08-08-1999 measles, mumps and rubella virus vaccine Charlene Sandoval BENAVIDEZ-Cielo Work Phone: [facility] 08-08-1999 poliovirus vaccine, inactivated Charlene BENAVIDEZ-Cielo Work Phone: [facility] 06-28-1998 diphtheria, tetanus toxoids and acellular pertussis vaccine, unspecified formulation Charlene BENAVIDEZ-C Work Phone: [facility] 06-28-1998 haemophilus influenz ae type b vaccine, PRP-OMP conjugate Charlene Mccloudiak PA-C Work Phone: [facility] 05-03-1998 diphtheria, tetanus toxoids and acellular pertussis vaccine, unspecified formulation Charlene Sandoval PA-C Work Phone: [facility] 05-03-1998 haemophilus influenz ae type b vaccine, PRP-OMP conjugate Charlene Sandoval PA-C Work Phone: [facility] 05-03-1998 hepatitis B vaccine, pediatric or pediatric/adolescent dosage Charlene Sandoval PA-C Work Phone: [facility] 05-03-1998 poliovirus vaccine, inactivated Charlene Sandoval PA-C Work Phone: [facility] 02-22-1998 diphtheria, tetanus toxoids and acellular pertussis vaccine, unspecified formulation Charlene Sandoval PA-C Work Phone: [facility] 02-22-1998 haemophilus influenz ae type b vaccine, PRP-OMP conjugate Charlene Sandoval PA-C Work Phone: [facility] 02-22-1998 poliovirus vaccine, inactivated Charlene Sandoval PA-C Work Phone: [facility] 1997 hepatitis B vaccine, pediatric or pediatric/adolescent dosage Charlene Sandoval PA-C Work Phone: [facility] Payers Date Payer Category Payer Medicaid [id number] 2021 Commercial Indemnity [employer] - HMO/PPO/POS [id number] 2021 Unknown [id number] [id number] 1997 Unknown [id number] 2.16.840.1.351372.3.579.2. 1997 Unknown [id number] 2.16.840.1.181624.3.579.2. 1997 Unknown [id number] 2.16.840.1.767994.3.579.2 1997 Unknown [id number] 2.16.840.1.382694.3.579.2 1997 Unknown [id number] 2.16.840.1.569020.3.579.2 1997 Unknown [id number] 2.16.840.1.679458.3.579.2 1997 Unknown [id number] 2.16.840.1.758063.3.579.2 1997 Unknown [id number] 2.16.840.1.020389.3.579.2 1997 Unknown [id number] 2.16.840.1.091337.3.579.2 1997 Unknown [id number] 2.16.840.1.384137.3.579.2 1997 Unknown [id number] 2.16.840.1.587134.3.579.2 1997 Unknown [id number] 2.16.840.1.697822.3.579.2. 1997 Unknown [id number] 2.16.840.1.450279.3.579.2 1997 Unknown [id number] 2.16.840.1.324602.3.579.2. 732 1997 Unknown [id number] 2.16.840.1.128749.3.579.2. 732 1997 Unknown [id number] 2.16.840.1.742739.3.579.2. 732 1997 Unknown [id number] 2.16.840.1.337070.3.579.2. 732 1997 Unknown [id number] 2.16.840.1.629319.3.579.2. 732 1997 Unknown [id number] 2.16.840.1.309813.3.579.2. 732 1997 Unknown [id number] 2.16.840.1.492850.3.579.2. 732 1997 Unknown [id number] 2.16.840.1.699580.3.579.2. 727 1997 Unknown [id number] 2.16.840.1.372714.3.579.2. 727 1997 Unknown [id number] 2.16.840.1.664364.3.579.2. 727 [facility] [id number] Medicaid [employer] Medicaid [id number] Unknown MMO [id number] Unknown [place] BC/BS [id number] Social History Date Type Detail Facility Start: 05-23-2021 Tobacco smoking status Heavy t obacco smoker (finding) [facility] Start: 06-01-2024 End: 07-22-2024 Sex Assigned At Male [facility] Start: 06-01-2024 Tobacco smoking stat us [facility]IS [facility] tobacco use [facility] Start: 06-01-2024 Tobacco use and exposure Smokeless tobacco non-user [facility] Start: 06-10-2024 End: 07-26-2024 Alcoholic beverage intake Current drinker of alcohol (finding) [facility] Start: 06-01-2024 End: 07-22-2024 History of Social function [facility] Start: 06-01-2024 Tobacco Comment Cutting down t o 1-2 cigs a day ( 05/2024) SS [facility] Start: 06-01-2024 Alcohol Comment daily 2-3 mixe d drinks after work [facility] Start: 1995 Sex assigned at Not on file [facility] Start: 05-30-2024 End: 10-05-2024 [facility] Start: 09-06-[address] [facility] Smoker (finding) [facility] Start: 1995 Sex Assigned At Male [facility] Tobacco smoking stat [facility] Tobacco smoking consumption unknown [facility] Start: 06-01-2024 End: 06-10-2024 Details of drug misuse behavior Misused drugs in past (finding) [facility] Medical Equipment Procedure Code Equipment Code Equipment Origin al Text Equipment Identifier Dates K Wire Christopher 2 Pnt 4in .035 Bx6 [id number] - [id number] Start: 07-23-2024 K Wire Christopher 2 Pnt 4in .035 Bx6 [id number] - [id number] Start: 06-09-2024 K Wire Christopher 2 Pnt 4in .035 Bx6 [id number] - [id number] Start: 07-23-2024 K Wire Christopher 2 Pnt 4in .035 Bx6 [id number] - [id number] Start: 06-09-2024 K Wire Christopher 2 Pnt 4in .035 Bx6 [id number] - [id number]_exp Start: 07-23-2024 K Wire Christopher 2 Pnt 4in .035 Bx6 [id number] - [id number] Start: 06-09-2024 K Wire Christopher 2 Pnt 4in .035 Bx6 [id number] - [id number] Start: 07-23-2024 K Wire Christopher 2 Pnt 4in .035 Bx6 [id number] - [id number] Start: 06-09-2024 K Wire Christopher 2 Pnt 4in .035 Bx6 [id number] - [id number]_exp Start: 07-23-2024 K Wire Christopher 2 Pnt 4in .035 Bx6 [id number] - [id number] Start: 06-09-2024 Functional Status Date Assessment Result Facility 05-29-2024 Functional Status N/A [facility] 06-22-2022 Functional Status N/A [facility] Clinical Notes 06-22-2022 to 09-06-2024 Note Date & Type Note Facility 09-06-2024 Evaluation note Diagnosis Onset Date Resolution BMI 34.0-34.9,adult acute August 262024 9:37am Gout acute September 06, 2024 9:37am Hypertension acute September 06 9:37am Obese acute September 06, 2024 9:37am BMI 34.0-34.9,adult acute October 05, 2024 10:13am Obese acute October 05 10:13am [facility] Work Phone: 1(771) 415-160603-28-2025 NoteSurgical History and Physical [facility] [address] [place] [address] Name: Tu Casiano : 1995 28 year old CSN: [id number] Attending: Cely Puente MD Date of Admission: 07/23/2024 12:17 PM Room/Bed: OR/NONE Planned Procedure: Procedure(s): REMOVAL, HARDWARE, HAND HPI: Tu Casiano is a 28 year old male with Pre-Op Diagnosis Codes: * Traumatic amputation of finger, initial encounter [S68.119A] * Hand laceration involving tendon, right, subsequent encounter [S61.411D, S66.921D]. Past Medical History: Past Medical History: Diagnosis Date Current smoker 06/01/2024 Comment on above: Added secondary to documentation in Social History. Essential (primary) hypertension Fracture of cervical vertebra (HCC) 03/14/2016 Gouty arthritis of right ankle 06/01/2024 Hand laceration involving tendon, right, subsequent encounter 05/30/2024 Open fracture of middle phalanx of finger 05/29/2024 Past Surgical History: Review of patient's past surgical history indicates: TONSILLECTOMY 2012 CIRCUMCISION REPAIR, TENDON, EXTENSOR (06/09/2024) Procedure: REPAIR, TENDON, EXTENSOR; Surgeon: Cely Puente MD; Location: PERIOPERATIVE SERVICES; Service: Plastics REDUCTION, OPEN, HAND (06/09/2024) Procedure: REDUCTION, OPEN, HAND; Surgeon: Cely Puente MD; Location: PERIOPERATIVE SERVICES; Service: Plastics Medications: Current Facility-Administered Medications Medication Dose Route Frequency Last Rate Last Admin ondansetron (ZOFRAN) 4 MG/2ML injection 4 mg Intravenous Push PACU once PRN naloxone (NARCAN) 0.4 MG/ML injection 0.4 mg Intravenous Push PRN oxyCODONE-acetaminophen (PERCOCET) 5-325 mg per tablet 2 Tablet Oral PRN acetaminophen (TYLENOL) tablet 650 mg Oral PACU once PRN sodium chloride 0.9 % injection 3 mL Intravenous Push PRN lactated ringers iv infusion Intravenous Continuous ceFAZolin Sodium (ANCEF) 2,000 mg in sterile water for injection 10 mL IV push 2,000 mg Intravenous One Time Dose Family History: No family history on file. Social History: Social History Socioeconomic History Marital status: Single Tobacco Use Smoking status: Every Day Types: Cigarettes Smokeless tobacco: Never Tobacco comments: Cutting down to 1-2 cigs a day ( 05/2024) SS Substance and Sexual Activity Alcohol use: Yes Comment: daily 2-3 mixed drinks after work Drug use: Not Currently Allergies: Patient has no known allergies. Vitals Signs: BP 147/93 (BP Location: left arm) Pulse 62 Temp 97.5 ???F (36.4 ???C) (Temporal) Resp 16 Ht 6' (1.829 m) Wt 250 lb (113.4 kg) SpO2 96% BMI 33.91 kg/m??? ROS: Denies fever, chills, chest pain, SOB, palpitations. Objective Physical Exam: Gen: NAD, comfortable Eyes: Normal, PERRL, and EOM's intact Pulm: Chest clear to auscultation bilaterally and Denies fever, chills, cough, shortness of breath CV: RRR with S1S2 and No murmurs, gallops, or rubs Abd: Deferred Neuro: Awake, alert, oriented, No motor deficits, and Sensation grossly intact Skin: No gross or obvious abnormalities on visible skin. Right 5th digit tender to palpation with bruising consistent with injury. Psych: alert and oriented to person, place and time, Appropriate mood/affect Imagin K wires on imaging. Patient reports one has since been removed. Laboratory Values and Test Results: Results for orders placed or performed during the hospital encounter of 05/30/24 (from the past 46425 hours) Complete Blood Count W/Diff Collection Time: 05/30/24 2:42 AM Result Value Ref Range WBC 10.9 4.5 - 11.5 K/uL RBC 5.25 4.50 - 5.90 M/uL Hemoglobin 17.4 (H) 13.9 - 16.3 g/dL Hematocrit 50.4 41.0 - 53.0 % MCV 96 80 - 100 fL MCH 33.1 26.0 - 34.0 pg MCHC 34.5 32.0 - 35.9 g/dL Platelet 200 150 - 400 K/uL RDW-CV 13.1 11.5 - 14.5 % MPV 9.4 7.5 - 11.2 fL Neutrophils 58.4 31.0 - 76.0 % Neutrophil # 6.38 1.50 - 8.00 K/uL Lymphocytes 33.3 24.0 - 44.0 % Lymphocytes # 3.64 1.00 - 4.80 K/uL Monocytes 6.9 2.0 - 11.0 % Monocyte # 0.75 0.20 - 1.00 K/uL Eosinophil 0.5 0.1 - 4.0 % Eosinophil # 0.06 0.00 - 0.70 K/uL Basophils 0.9 <=1.9 % Basophil # 0.10 0.00 - 0.20 K/uL MDW 20 <=20 *Note: Due to a large number of results and/or encounters for the requested time period, some results have not been displayed. A complete set of results can be found in Results Review. BMP (last 3 years, up to 8 values) 05/30/2024 2:42 AM Na 144 K 4.1 Cl 104 CO2 26 Gap 18 Glu 130 BUN 6 Cr 0.76 Ca 9.4 eGFR 127 No results found for this or any previous visit (from the past 8760 hours). ASSESSMENT AND PLAN Assessment: Tu Casiano is a 28 year old male with Pre-Op Diagnosis Codes: * Traumatic amputation of finger, initial encounter [S68.119A] * Hand laceration involving tendon, right, subsequent encounter [S61.411D, S66.921D]. Plan: I have personally reviewed the patient's medical history an (more content not included)...The TRData02-12-2025 Surgery Surgical operation note* OP Note - Cely Puente MD - 06/09/2024 8:45 PM EST Name: TU CASIANO I MR#: [id number] ENC#: [id number] Date of Procedure: 06/09/2024 ATTENDING SURGEON: Christoph Puente MD STRIPE MARKER: Dr. Matta PREOPERATIVE DIAGNOSES: Right hand small finger open fracture dislocation and extensor tendon laceration and middle finger distal phalanx amputation. POSTOPERATIVE DIAGNOSIS: Right hand small finger open fracture dislocation and extensor tendon laceration and middle finger distal phalanx amputation. PROCEDURES: 1. Right middle finger revision amputation at the level of distal portion of the middle phalanx. 2. Fixation of the extensor tendon at 2 different places, in central slip and also zone 5. 3. Open reduction of the PIP dislocation fracture. ANESTHESIA: General. ESTIMATED BLOOD LOSS: Less than 5 cc. IV FLUIDS: 900. SURGERY TIME: Around 1 hour. BACKGROUND: The patient is a 28-year-old male with history of saw injury to the right hand, sustained injuries to the small and middle fingers. Different options discussed. Decision was made to proceed with a revision amputation of the middle finger at the level of the distal part of the middle phalanx and also index finger reduction of the dislocation, fracture and also extensor tendon repair. Surgery complications and limitations discussed with the patient in detail. He seemed to understand. He wanted to proceed with surgery. DESCRIPTION OF PROCEDURE: The patient was taken to the OR, was put in supine position. General anesthesia was applied. Right upper extremity was rested on a hand table. Proximal arm tourniquet was applied. The right upper extremity was prepped with Hibiclens solution, then it was draped. First, we opened the middle finger and the distal phalanx bone was completely gone. There was some cartilage part of it, which we debrided. Part of the middle phalanx, specifically cartilaginous cap was shaved off. We designed advancement flap, shortened extensor and flexor tendons and then, after irrigation,the volar flap was wrapped around the bone and closed with 5-0 chromic. Then, we started evaluating the small finger under the C-arm guidance. The patient had a dislocation fracture of the PIP joint.The extensor tendon over the central slip was from the bone with a bony part of it and also was cut over zone 5. After irrigation, we reduced the PIP dislocation fracture and pinned it by two 0.35 K-wires were fired from the both sides of the proximal phalanx going to the middle phalanx. Then, the extensor tendon with a piece of a bone was placed over the proximal part of the middle phalanx and fixated with two 0.35 K-wires and then extensor tendon laceration over the distal piece zone 5 was repaired with 4-0 Prolene, and we placed a K-wire, from the distal end of the phalanx passing through the DIP joint to the middle phalanx to keep the finger in extension to protect the extensor tendon laceration repair. Skin was closed with 4-0 nylon. K-wires were shortened. X-rays were saved. Tourniquet was deflated. The patient was dressed with bacitracin, Adaptic, and ulnar gutter. The patient tolerated the procedure very well, extubated and transferred to PACU in stable condition. Christoph Puente MD SAT/MedQ/Dict: 06/09/2024 15:21:21 TRANS: 06/09/2024 15:42:55 JOB: [id number] DictJob#: [id number] Miscellaneous Notes* OP Note - Cely Puente MD - 06/09/2024 8:45 PM EST Name: TU CASIANO I MR#: [id number] [facility]#: [id number] Date of Procedure: 06/09/2024 ATTENDING SURGEON: Christoph Puente MD STRIPE MARKER: Dr. Matta PREOPERATIVE DIAGNOSES: Right hand small finger open fracture dislocation and extensor tendon laceration and middle finger distal phalanx amputation. POSTOPERATIVE DIAGNOSIS: Right hand small finger open fracture dislocation and extensor tendon laceration and middle finger distal phalanx amputation. PROCEDURES: 1. Right middle finger revision amputation at the level of distal portion of the middle phalanx. 2. Fixation of the extensor tendon at 2 different places, in central slip and also zone 5. 3. Open reduction of the PIP dislocation fracture. ANESTHESIA: General. ESTIMATED BLOOD LOSS: Less than 5 cc. IV FLUIDS: 900. SURGERY TIME: Around 1 hour. BACKGROUND: The patient is a 28-year-old male with history of saw injury to the right hand, sustained injuries to the small and middle fingers. Different options discussed. Decision was made to proceed with a revision amputation of the middle finger at the level of the distal part of the middle phalanx and also index finger reduction of the dislocation, fracture and also extensor tendon repair. Surgery complications and limitations discussed with the patient in detail. He seemed to understand. He wanted to proceed with surgery. DESCRIPTION OF PROCEDURE: The patient was taken to the OR, was put in supine position. General anesthesia was applied. Right upper extremity was rested on a hand table. Proximal arm tourniquet was applied. The right upper extremity was prepped with Hibiclens solution, then it was draped. First, we opened the middle finger and the distal phalanx bone was completely gone. There was some cartilage part of it, which we debrided. Part of the middle phalanx, specifically cartilaginous cap was shaved off. We designed advancement flap, shortened extensor and flexor tendons and then, after irrigation,the volar flap was wrapped around the bone and closed with 5-0 chromic. Then, we started evaluating the small finger under the C-arm guidance. The patient had a dislocation fracture of the PIP joint.The extensor tendon over the central slip was from the bone with a bony part of it and also was cut over zone 5. After irrigation, we reduced the PIP dislocation fracture and pinned it by two 0.35 K-wires were fired from the both sides of the proximal phalanx going to the middle phalanx. Then, the extensor tendon with a piece of a bone was placed over the proximal part of the middle phalanx and fixated with two 0.35 K-wires and then extensor tendon laceration over the distal piece zone 5 was repaired with 4-0 Prolene, and we placed a K-wire, from the distal end of the phalanx passing through the DIP joint to the middle phalanx to keep the finger in extension to protect the extensor tendon laceration repair. Skin was closed with 4-0 nylon. K-wires were shortened. X-rays were saved. Tourniquet was deflated. The patient was dressed with bacitracin, Adaptic, and ulnar gutter. The patient tolerated the procedure very well, extubated and transferred to PACU in stable condition. Christoph Puente MD SAT/MedQ/Dict: 06/09/2024 15:21:21 TRANS: 06/09/2024 15:42:55 JOB: [id number] DictJob#: [id number] * Brief Operative Note - Cely Puente MD - 06/09/2024 2:30 PM EST Brief Op Note Surgical Name: Tu Casiano CSN: [id number] Age: [age] year old Date of : 1995 Preoperative diagnosis(es): Pre-op Diagnosis * Hand laceration involving tendon, right, subsequent encounter [S67.411D, S60.926T] Postoperative diagnosis(es): Same Procedure(s): REPAIR, TENDON, EXTENSOR REDUCTION, OPEN, HAND Surgeon: Cely Puente MD Plaster Foreman surgeon: Dr. Matta Anesthesia: General Specimen(s): * No specimens in log * Estimated blood loss: less than 5 cc IV Fluids: 900 mL Urine Output: NA Drains: Peripheral IV Access: 06/09/24 1111 18 gauge Anterior;Left Forearm (Active) Site Assessment WNL;Dressing intact 06/09/24 1111 Infusion Status Port #1 Capped;Patent;Positive blood return 06/09/24 1111 Findings: None Complications: None Surgery Time (skin to dressing): 1 hr ASA Code: Class II: Individual with one system well controlled disease. Disease does not affect daily living. Status at end of surgery: Stable Dictated by: Cely Puente MD: I was present for the critical parts of the procedure. Cely Puente MD 06/09/2024 3:13 PM * Blood Attestation - Js Gonzalez MD - 06/09/2024 12:58 PM EST Blood Attestation: ATTESTATION OF INFORMED CONSENT FOR BLOOD: The transfusion of blood and/or blood components were discussed with the patient and/or legal investment representative. The risks, benefits and alternatives were reviewed. Questions regarding blood transfusions were answered. The patient /or the patient s legal investment representative agree with the plan for transfusion of blood and/or blood components. documented in this [id number] History of Present illness Narrative* Carolyn Ghosh RN - 06/09/2024 5:[address] Golden at bedside to explain safety and possible repercussions of pain medication due to patient's high STOPBANG score. Fiance and grandmother at bedside. Patient declined extended stay for monitoring in case of narcotic administration and decided to be discharged. Patient expressed understanding regarding the possible side effects of narcotic administration with a high STOPBANG score. Patient discharged with instructions and home prescriptions. documented in this [id number] NotePeripheral Block Patient location during procedure: holding area Start time: 06/09/2024 3:47 PM Reason for block: post-op pain management Preanesthetic Checklist Completed: patient identified, IV checked, site marked, risks and benefits discussed, consent given, standard monitors applied and equipment checked, pre-op evaluation and timeout performed Staffing: Authorized by: Jj Harman MD Performed by: Laila Golden, Peripheral Block - brachial plexus block Shoulder block localization: axillary Patient position: sitting Prep: ChloraPrep, site prepped and draped and sterile technique and prep Laterality: right Injection technique: single-shot Guidance: ultrasound guided ULTRASOUND DOCUMENTATION: Ultrasound was used during this procedure to provide direct visualization of the nerves and surrounding vasculature, to improve block set up time, and potentially decrease complications. Surrounding anatomy and nerves were identified. Proper needle placement was confirmed as well as the deposition of local anesthetic around the nerve bundles. A copy of the image was placed in the permanent record. Needle Needle type: Stimuplex Needle gauge: 22 G Needle length: 2 in Needle localization: anatomical landmarks and ultrasound guidance Assessment Injection assessment: negative aspiration for heme, local visualized surrounding nerve on ultrasound, incremental injection and no paresthesia on injection Paresthesia pain: none Heart rate change: no Slow fractionated injection: yes No block complicationsThe [facility] [id number] NoteAcute Pain Note and Procedure Patient: Tu Casiano, male, 28 year old Consult Date: 06/09/2024 ; Consult Time: 4:23 PM My advice has been requested by: Dr. Harman Patient is: outpatient Reason for Consultation/Chief Complaint: Acute Pain History of Present Illness : 28 year old male with PMH of smoker, hand laceration complaining of acute post-operative pain not controlled by IV narcotics requiring additional post-operative pain control. Pain is sharp, constant and located in the right UE. Pain is worse with movement and palpation. Improved with IV opioids. Pain Score: 10/10 Previous Pain Interventions/Medications: IV narcotics Review of Systems: Pulmonary: HANH Cardio-vascular: Negative Musculoskeletal: right UE motor and sensory grossly intact. Dressing in place, appears c/d/i. Endocrine: Negative Hematologic: Negative Review of patient's past medical history indicates: Hand laceration involving tendon, right, subsequent encounter (05/30/2024) Current smoker (06/01/2024) Comment on above: Added secondary to documentation in Social History. Fracture of cervical vertebra (HCC) (03/14/2016) Gouty arthritis of right ankle (06/01/2024) Open fracture of middle phalanx of finger (05/29/2024) Essential (primary) hypertension Past Medical History: Diagnosis Date Current smoker 06/01/2024 Comment on above: Added secondary to documentation in Social History. Essential (primary) hypertension Fracture of cervical vertebra (HCC) 03/14/2016 Gouty arthritis of right ankle 06/01/2024 Hand laceration involving tendon, right, subsequent encounter 05/30/2024 Open fracture of middle phalanx of finger 05/29/2024 No family history on file. Social History Socioeconomic History Marital status: Single Tobacco Use Smoking status: Every Day Types: Cigarettes Smokeless tobacco: Never Tobacco comments: Cutting down to 1-2 cigs a day ( 05/2024) SS Substance and Sexual Activity Alcohol use: Yes Comment: daily 2-3 mixed drinks after work Drug use: Not Currently reports that he does not currently use drugs. Current Facility-Administered Medications Medication Dose Route Frequency Last Rate Last Admin traMADol (ULTRAM) tablet 50 mg Oral PACU once PRN 50 mg at 06/09/24 1609 acetaminophen (TYLENOL) tablet 1,000 mg Oral PACU once PRN 1,000 mg at 06/09/24 1609 sodium chloride 0.9 % injection 3 mL Intravenous Push PRN prochlorperazine (COMPAZINE) tablet 5 mg Oral Q6H PRN HYDROmorphone (DILAUDID) 1 mg/mL injection 0.5 mg Intravenous Push PACU every 15 min PRN x 4 doses fentaNYL (SUBLIMAZE) 50 MCG/ML injection 12.5 mcg Intravenous Push Q5 Min PRN oxyCODONE immediate release tablet 5 mg Oral PRN naloxone (NARCAN) 0.4 MG/ML injection 0.4 mg Intravenous Push PRN lactated ringers iv infusion 1,000 mL Intravenous Continuous Stopped at 06/09/24 1529 Vital Signs: See PACU Vitals Physical Examination: Pulmonary: Chest clear to auscultation bilaterally Cardiovascular: RRR with S1S2 and No murmurs, gallops, or rubs Neurologic: Awake, alert, oriented, No motor deficits and Sensation grossly intact Extremities: right UE in dressing otherwise no gross or obvious abnormalities Laboratory Tests: CBC (last 3 years, up to 8 values) 05/30/2024 2:42 AM WBC 10.9 RBC 5.25 Hgb 17.4 Hct 50.4 MCV 96 RDW 13.1 Plt 200 BMP (last 3 years, up to 8 values) 05/30/2024 2:42 AM Na 144 K 4.1 Cl 104 CO2 26 Gap 18 Glu 130 BUN 6 Cr 0.76 Ca 9.4 eGFR 127 INR (no units) Date Value 05/30/2024 1.04 Impression: 28 year old male with above hx presenting with acute post-operative pain located in the right UE. Plan/Recommendation: Right brachial plexus peripheral nerve block at the axillary site with ultrasound guidance All vital signs were stable during the procedure and at least 30 minutes after the procedure. See the PACU nursing vitals record for more details. Laila Golden DO Anesthesiology, PGY-3 06/09/2024, 4:23 [facility] Postoperative evaluation and management note* Brief Operative Note - Cely Puente MD - 06/09/2024 2:30 PM EST Brief Op Note Surgical Name: Tu Casiano CSN: [id number] Age: [age] year old Date of : 1995 Preoperative diagnosis(es): Pre-op Diagnosis * Hand laceration involving tendon, right, subsequent encounter [S61.411D, S66.924L] Postoperative diagnosis(es): Same Procedure(s): REPAIR, TENDON, EXTENSOR REDUCTION, OPEN, HAND Surgeon: Cely Puente MD Plaster Foreman surgeon: Dr. Matta Anesthesia: General Specimen(s): * No specimens in log * Estimated blood loss: less than 5 cc IV Fluids: 900 mL Urine Output: NA Drains: Peripheral IV Access: 06/09/24 1111 18 gauge Anterior;Left Forearm (Active) Site Assessment WNL;Dressing intact 06/09/24 1111 Infusion Status Port #1 Capped;Patent;Positive blood return 06/09/24 1111 Findings: None Complications: None Surgery Time (skin to dressing): 1 hr ASA Code: Class II: Individual with one system well controlled disease. Disease does not affect daily living. Status at end of surgery: Stable Dictated by: Cely Puente MD: I was present for the critical parts of the procedure. Cely Puente MD 06/09/2024 3:13 PM [id number] Progress note* Blood Attestation - Js Gonzalez MD - 06/09/2024 12:58 PM EST Blood Attestation: ATTESTATION OF INFORMED CONSENT FOR BLOOD: The transfusion of blood and/or blood components were discussed with the patient and/or legal investment representative. The risks, benefits and alternatives were reviewed. Questions regarding blood transfusions were answered. The patient /or the patient s legal investment representative agree with the plan for transfusion of blood and/or blood components. [facility] Work Phone: 1(834) 642-181302-12-2025 History and physical note* Stevie Glasgow MD - 06/09/2024 12:54 PM EST Images from the original note were not included. Surgical History and Physical [facility] [place] [address] Name: Tu Casiano : 1995 28 year old CSN: [id number] Attending: Cely Puente MD Date of Admission: 06/09/2024 10:39 AM Room/Bed: Main OR/PeriOp Planned Procedure: Procedure(s): REPAIR, TENDON, EXTENSOR REDUCTION, OPEN, HAND HPI: Tu Casiano is a 28 year old male with Pre-Op Diagnosis Codes: * Hand laceration involving tendon, right, subsequent encounter [S61.411D, S66.921D]. Past Medical History: Past Medical History: Diagnosis Date Current smoker 06/01/2024 Comment on above: Added secondary to documentation in Social History. Essential (primary) hypertension Fracture of cervical vertebra (HCC) 03/14/2016 Gouty arthritis of right ankle 06/01/2024 Hand laceration involving tendon, right, subsequent encounter 05/30/2024 Open fracture of middle phalanx of finger 05/29/2024 Past Surgical History: Review of patient's past surgical history indicates: TONSILLECTOMY 2012 CIRCUMCISION Medications: Current Facility-Administered Medications Medication Dose Route Frequency Last Rate Last Admin lactated ringers iv infusion 1,000 mL Intravenous Continuous ceFAZolin Sodium (ANCEF) 2,000 mg in sterile water for injection 10 mL IV push 2,000 mg IntravenousOne Time Dose Family History: No family history on file. Social History: Social History Socioeconomic History Marital status: Single Tobacco Use Smoking status: Every Day Types: Cigarettes Smokeless tobacco: Never Tobacco comments: Cutting down to 1-2 cigs a day ( 05/2024) SS Substance and Sexual Activity Alcohol use: Yes Comment: daily 2-3 mixed drinks after work Drug use: Not Currently Allergies: Patient has no known allergies. Vitals Signs: BP 153/90 (BP Location: left arm) Pulse 85 Temp 97.7 F (36.5 C) (Oral) Resp 18 Ht 6' (1.829m) Wt 255 lb (115.7 kg) SpO2 98% BMI 34.58 kg/m ROS: Denies fever, chills, chest pain, SOB, palpitations. Objective Physical Exam: Gen: NAD Eyes: Normal Pulm: Chest clear to auscultation bilaterally CV: RRR with S1S2 Abd: Soft and non-tender Neuro: Awake, alert, oriented Skin: No gross or obvious abnormalities on visible skin Psych: alert and oriented to person, place and time Imaging: Laboratory Values and Test Results: Results for orders placed or performed during the hospital encounter of 05/30/24 (from the past 55204 hours) CBC WITH DIFFERENTIAL Collection Time: 05/30/24 2:42 AM Result Value Ref Range WBC 10.9 4.5 - 11.5 K/uL RBC 5.25 4.50 - 5.90 M/uL Hemoglobin 17.4 (H) 13.9 - 16.3 g/dL Hematocrit 50.4 41.0 - 53.0 % MCV 96 80 - 100 fL MCH 33.1 26.0 - 34.0 pg MCHC 34.5 32.0 - 35.9 g/dL Platelet 200 150 - 400 K/uL RDW-CV 13.1 11.5 - 14.5 % MPV 9.4 7.5 - 11.2 fL Neutrophils 58.4 31.0 - 76.0 % Neutrophil # 6.38 1.50 - 8.00 K/uL Lymphocytes 33.3 24.0 - 44.0 % Lymphocytes # 3.64 1.00 - 4.80 K/uL Monocytes 6.9 2.0 - 11.0 % Monocyte # 0.75 0.20 - 1.00 K/uL Eosinophil 0.5 0.1 - 4.0 % Eosinophil # 0.06 0.00 - 0.70 K/uL Basophils 0.9 <=1.9 % Basophil # 0.10 0.00 - 0.20 K/uL MDW 20 <=20 *Note: Due to a large number of results and/or encounters for the requested time period, some results have not been displayed. A complete set of results can be found in Results Review. BMP (last 3 years, up to 8 values) 05/30/2024 2:42 AM Na 144 K 4.1 Cl 104 CO2 26 Gap 18 Glu 130 BUN 6 Cr 0.76 Ca 9.4 eGFR 127 No results found for this or any previous visit (from the past 8760 hours). ASSESSMENT & PLAN Assessment: Tu Casiano is a 28 year old male with Pre-Op Diagnosis Codes: * Hand laceration involving tendon, right, subsequent encounter [S61.411D, S66.921D]. Plan: I have personally reviewed the patient's medical history and performed the physical examination below immediately before the procedure. Medications, allergies, and pertinent laboratory and diagnostictests were also reviewed at this time. Procedure is still indicated. Yes Seen an evaluated by Stevie Glasgow MD. Discussed with attending Cely Puente MD. Stevie Glasgow MD 06/09/24 12:54 PM [facility] Work Phone: 1([phone] 982-749902-12-2025 NoteSurgical History and Physical [facility] [place] [facility] [place] [address] Name: Tu Casiano : 1995 28 year old CSN: [id number] Attending: Cely Puente MD Date of Admission: 06/09/2024 10:39 AM Room/Bed: Main OR/PeriOp Planned Procedure: Procedure(s): REPAIR, TENDON, EXTENSOR REDUCTION, OPEN, HAND HPI: Tu Casiano is a 28 year old male with Pre-Op Diagnosis Codes: * Hand laceration involving tendon, right, subsequent encounter [S61.411D, S66.921D]. Past Medical History: Past Medical History: Diagnosis Date Current smoker 06/01/2024 Comment on above: Added secondary to documentation in Social History. Essential (primary) hypertension Fracture of cervical vertebra (HCC) 03/14/2016 Gouty arthritis of right ankle 06/01/2024 Hand laceration involving tendon, right, subsequent encounter 05/30/2024 Open fracture of middle phalanx of finger 05/29/2024 Past Surgical History: Review of patient's past surgical history indicates: TONSILLECTOMY 2012 CIRCUMCISION Medications: Current Facility-Administered Medications Medication Dose Route Frequency Last Rate Last Admin lactated ringers iv infusion 1,000 mL Intravenous Continuous ceFAZolin Sodium (ANCEF) 2,000 mg in sterile water for injection 10 mL IV push 2,000 mg Intravenous One Time Dose Family History: No family history on file. Social History: Social History Socioeconomic History Marital status: Single Tobacco Use Smoking status: Every Day Types: Cigarettes Smokeless tobacco: Never Tobacco comments: Cutting down to 1-2 cigs a day ( 05/2024) SS Substance and Sexual Activity Alcohol use: Yes Comment: daily 2-3 mixed drinks after work Drug use: Not Currently Allergies: Patient has no known allergies. Vitals Signs: BP 153/90 (BP Location: left arm) Pulse 85 Temp 97.7 ???F (36.5 ???C) (Oral) Resp 18 Ht 6' (1.829 m) Wt 255 lb (115.7 kg) SpO2 98% BMI 34.58 kg/m??? ROS: Denies fever, chills, chest pain, SOB, palpitations. Objective Physical Exam: Gen: NAD Eyes: Normal Pulm: Chest clear to auscultation bilaterally CV: RRR with S1S2 Abd: Soft and non-tender Neuro: Awake, alert, oriented Skin: No gross or obvious abnormalities on visible skin Psych: alert and oriented to person, place and time Imaging: Laboratory Values and Test Results: Results for orders placed or performed during the hospital encounter of 05/30/24 (from the past 81856 hours) CBC WITH DIFFERENTIAL Collection Time: 05/30/24 2:42 AM Result Value Ref Range WBC 10.9 4.5 - 11.5 K/uL RBC 5.25 4.50 - 5.90 M/uL Hemoglobin 17.4 (H) 13.9 - 16.3 g/dL Hematocrit 50.4 41.0 - 53.0 % MCV 96 80 - 100 fL MCH 33.1 26.0 - 34.0 pg MCHC 34.5 32.0 - 35.9 g/dL Platelet 200 150 - 400 K/uL RDW-CV 13.1 11.5 - 14.5 % MPV 9.4 7.5 - 11.2 fL Neutrophils 58.4 31.0 - 76.0 % Neutrophil # 6.38 1.50 - 8.00 K/uL Lymphocytes 33.3 24.0 - 44.0 % Lymphocytes # 3.64 1.00 - 4.80 K/uL Monocytes 6.9 2.0 - 11.0 % Monocyte # 0.75 0.20 - 1.00 K/uL Eosinophil 0.5 0.1 - 4.0 % Eosinophil # 0.06 0.00 - 0.70 K/uL Basophils 0.9 <=1.9 % Basophil # 0.10 0.00 - 0.20 K/uL MDW 20 <=20 *Note: Due to a large number of results and/or encounters for the requested time period, some results have not been displayed. A complete set of results can be found in Results Review. BMP (last 3 years, up to 8 values) 05/30/2024 2:42 AM Na 144 K 4.1 Cl 104 CO2 26 Gap 18 Glu 130 BUN 6 Cr 0.76 Ca 9.4 eGFR 127 No results found for this or any previous visit (from the past 8760 hours). ASSESSMENT AND PLAN Assessment: Tu Casiano is a 28 year old male with Pre-Op Diagnosis Codes: * Hand laceration involving tendon, right, subsequent encounter [S61.411D, S66.921D]. Plan: I have personally reviewed the patient's medical history and performed the physical examination below immediately before the procedure. Medications, allergies, and pertinent laboratory and diagnostic tests were also reviewed at this time. Procedure is still indicated. Yes Seen an evaluated by Stevie Glasgow MD. Discussed with attending Cely Puente MD. Stevie Glasgow MD 06/09/24 12:54 PMT [facility] [id number] History and physical note* Stevie Glasgow MD - 06/09/2024 12:54 PM EST Images from the original note were not included. Surgical History and Physical [facility] OR [address] [address] Name: Tu Casiano : 1995 28 year old CSN: [id number] Attending: Cely Puente MD Date of Admission: 06/09/2024 10:39 AM Room/Bed: Main OR/PeriOp Planned Procedure: Procedure(s): REPAIR, TENDON, EXTENSOR REDUCTION, OPEN, HAND HPI: Tu Casiano is a 28 year old male with Pre-Op Diagnosis Codes: * Hand laceration involving tendon, right, subsequent encounter [S61.411D, S66.921D]. Past Medical History: Past Medical History: Diagnosis Date Current smoker 06/01/2024 Comment on above: Added secondary to documentation in Social History. Essential (primary) hypertension Fracture of cervical vertebra (HCC) 03/14/2016 Gouty arthritis of right ankle 06/01/2024 Hand laceration involving tendon, right, subsequent encounter 05/30/2024 Open fracture of middle phalanx of finger 05/29/2024 Past Surgical History: Review of patient's past surgical history indicates: TONSILLECTOMY 2012 CIRCUMCISION Medications: Current Facility-Administered Medications Medication Dose Route Frequency Last Rate Last Admin lactated ringers iv infusion 1,000 mL Intravenous Continuous ceFAZolin Sodium (ANCEF) 2,000 mg in sterile water for injection 10 mL IV push 2,000 mg IntravenousOne Time Dose Family History: No family history on file. Social History: Social History Socioeconomic History Marital status: Single Tobacco Use Smoking status: Every Day Types: Cigarettes Smokeless tobacco: Never Tobacco comments: Cutting down to 1-2 cigs a day ( 05/2024) SS Substance and Sexual Activity Alcohol use: Yes Comment: daily 2-3 mixed drinks after work Drug use: Not Currently Allergies: Patient has no known allergies. Vitals Signs: BP 153/90 (BP Location: left arm) Pulse 85 Temp 97.7 F (36.5 C) (Oral) Resp 18 Ht 6' (1.829m) Wt 255 lb (115.7 kg) SpO2 98% BMI 34.58 kg/m ROS: Denies fever, chills, chest pain, SOB, palpitations. Objective Physical Exam: Gen: NAD Eyes: Normal Pulm: Chest clear to auscultation bilaterally CV: RRR with S1S2 Abd: Soft and non-tender Neuro: Awake, alert, oriented Skin: No gross or obvious abnormalities on visible skin Psych: alert and oriented to person, place and time Imaging: Laboratory Values and Test Results: Results for orders placed or performed during the hospital encounter of 05/30/24 (from the past 34564 hours) CBC WITH DIFFERENTIAL Collection Time: 05/30/24 2:42 AM Result Value Ref Range WBC 10.9 4.5 - 11.5 K/uL RBC 5.25 4.50 - 5.90 M/uL Hemoglobin 17.4 (H) 13.9 - 16.3 g/dL Hematocrit 50.4 41.0 - 53.0 % MCV 96 80 - 100 fL MCH 33.1 26.0 - 34.0 pg MCHC 34.5 32.0 - 35.9 g/dL Platelet 200 150 - 400 K/uL RDW-CV 13.1 11.5 - 14.5 % MPV 9.4 7.5 - 11.2 fL Neutrophils 58.4 31.0 - 76.0 % Neutrophil # 6.38 1.50 - 8.00 K/uL Lymphocytes 33.3 24.0 - 44.0 % Lymphocytes # 3.64 1.00 - 4.80 K/uL Monocytes 6.9 2.0 - 11.0 % Monocyte # 0.75 0.20 - 1.00 K/uL Eosinophil 0.5 0.1 - 4.0 % Eosinophil # 0.06 0.00 - 0.70 K/uL Basophils 0.9 <=1.9 % Basophil # 0.10 0.00 - 0.20 K/uL MDW 20 <=20 *Note: Due to a large number of results and/or encounters for the requested time period, some results have not been displayed. A complete set of results can be found in Results Review. BMP (last 3 years, up to 8 values) 05/30/2024 2:42 AM Na 144 K 4.1 Cl 104 CO2 26 Gap 18 Glu 130 BUN 6 Cr 0.76 Ca 9.4 eGFR 127 No results found for this or any previous visit (from the past 8760 hours). ASSESSMENT & PLAN Assessment: Tu Casiano is a 28 year old male with Pre-Op Diagnosis Codes: * Hand laceration involving tendon, right, subsequent encounter [S61.411D, S66.928X]. Plan: I have personally reviewed the patient's medical history and performed the physical examination below immediately before the procedure. Medications, allergies, and pertinent laboratory and diagnostictests were also reviewed at this time. Procedure is still indicated. Yes Seen an evaluated by Stevie Glasgow MD. Discussed with attending Cely Puente MD. Stevie Glasgow MD 06/09/24 12:54 PM documented in this [id number] Hospital Discharge instructions* Discharge Instructions* Carolyn Ghosh RN - 06/08/2024 3:05 PM EST Images from the original note were not included. Hand, Wrist, Forearm, or Elbow Surgery - Post-Operative Instructions Please note that these are general instructions. Your surgeon and therapist may give you special instructions, which vary to some degree based on your specific procedure -- follow those as directed. Do not, however, hesitate to call if you have any questions or concerns. Procedure(s): Right small finger tendon repair and fracture open reduction internal fixation Dressings - If you have a splint: You will have a bandage or dressing over the operative site. Unless specific instructions have beengiven, you are to leave the dressing on. Some dressings include casting material to help immobilizethe area you have had surgery on. DO NOT GET YOUR DRESSING WET! When showering, cover the dressing/splint with a plastic bag and sealwith tape. Bags specifically designed for this purpose can also be purchased from most pharmacies. The bandages are placed in a sterile and specific fashion to protect the operative area. Once at home, if you feel your dressing is too tight, comes off or accidentally gets wet, please contact your surgeon s office. Any non-absorbable stitches (i.e., sutures) will usually remain in for 12 to 15 days. Activities: If you received an anesthetic block, your hand or arm may be numb for several hours (or even overnight depending on medication used). For the first 72 hours elevate the operated extremity above the level of your heart to help avoid postoperative swelling and accompanying pain. Rest and elevation are one of the most important factors for pain control. While resting, place your hand/arm on several pillows, or while sitting at a table, rest your elbowon the table with your hand pointed to the kristie. Try to balance your activity, allowing time for rest. If a sling is provided, it is provided primarily until you regain strength after anesthesia/nerveblock or for occasional comfort while up and about. The sling does not allow for proper elevation and tends to cause stiffness in your elbow/shoulder if worn excessively. Diet: resume pre-hospital diet. Follow-up: Future Appointments (next 10) Provider Department Center 06/15/2024 10:00 AM (Arrive by 9:50 AM) Charlene Nick PA-C [facility] Plastic Surgery [facility] 06/15/2024 10:30 AM (Arrive by 10:20 AM) [facility] Occupational Therapy Arrive at: [facility] During business hours, if you need to reach your provider, please call Plastic Surgery Office [phone]. After hours, if you have an urgent question or issue, you can also call this number and request to be connected to one of the residents on-call. PERIOPERATIVE DISCHARGE/HOME-GOING INSTRUCTIONS ANESTHESIA - GENERAL (ADULT) If a problem arises, you may contact your physician by calling [phone] and asking for the resident recreation therapy teacher for Plastic Surgery service. Special Care Needs: Activity: Rest at home today and tomorrow, then progress to your regular activities as tolerated. Diet: Clear liquids are best tolerated at first. If you are not nauseated, you can progress your diet to solid foods as tolerated. Possible post-operative precautions: Call you doctor or clinic for: 1. Signs of infection such as fever or chills. 2. Severe pain that in not relieved by Tylenol or your pain medicine prescription. 3. You may have a sore throat - it is usually gone in 1 to 2 days. Post-anesthesia safety: Possible side effects include drowsiness, dizziness, or inability to think clearly. For your safety, do not drive, drink alcoholic beverages, take any unprescribed medication or make any important decisions for 24 hours. A responsible adult should be with you for 24 hours. If no urine by 11 pm or you become very uncomfortable and can t urinate, call [phone] or come tothe emergency room. A risk of anesthesia is post operative nausea and/or vomiting (PONV). Certain patients?are at higher risk than others. Talk to your anesthesiologist about the plan to minimize this risk. In?general, it is best to start with only ice chips or small sips of water, then progress to clear, non-alcoholic fluids. You do not have to eat if you do not feel like it; fluids?are the most important in?the fir st?24 hours after surgery. If you start to eat, try bananas, applesauce, plain toast, saltine crackers, or broth; avoid fried or fatty foods. Make sure to eat something about 15 minutes before takingany pain medications. Seek medical attention for any prolonged?PONV and signs of dehydration. The day after surgery, a nurse will call to check on you. However, if there are any questions or concerns, please call us at the number listed in the home going instructions. Falls Prevention Each year, 1 in every 3 adults over the age of 65 are treated for fall-related injuries. The risk of falling increases with each decade of life. The good news is, many falls are preventable. Here are some fall prevention tips: Exercise can increase strength and improve balance, making falls much less likely. For more informati on visit: http://[facility].org/services/lbud-ndbabb-en-your-health/a-matte [email or web address]-bk-wtotwqu/ Some medications or combinations of medications can lead to side effects that cause falls. Have a doctor or pharmacist review all medications to help reduce the chance of risky side effects. Poor vision can lead to falls. Have your eyes checked every year. Ensure that your glasses are the correct strength. Eliminate hazards in your home by completing this home safety checklist. Remove things you can trip over from stairs and places you walk Install handrails and lights on all staircases. Remove small throw rugs or use double-sided tape to keep rugs from slipping. Keep items you use often in cabinets you can reach easily without using a step stool. Put grab bars inside and next to the tub or shower and next to your toilet.Use non-slip mats in thebathtub and on shower floors. Improve the lighting in your home. Hang lightweight curtains or shades to reduce glare. Wear shoes both inside and outside the house. Avoid going barefoot or wearing slippers. To lower the risk of hip fractures: Get adequate calcium and vitamin D, from food and/or supplements. Do weight bearing exercise. Get screened for osteoporosis and treated if needed documented in this [id number] Evaluation + Plan note* Assessment & Plan Note - Charlene Nick PA-C - 06/02/2024 1:33 PM EST Associated Problem(s): Hand laceration involving tendon, right, subsequent encounter - Dressings removed. - Discussed upcoming surgery, risks, benefits, prognosis, and outcomes. - Dressings placed today: bacitracin, adaptic, gauze, PHU. - OT today for splinting. Maintain splint until surgery. - Pain medication refilled. - Follow up one week post operatively. [id number] Miscellaneous Notes* Assessment & Plan Note - Charlene Nick PA-C - 06/02/2024 1:33 PM ESTAssociated Problem(s): Hand laceration involving tendon, right, subsequent encounter - Dressings removed. - Discussed upcoming surgery, risks, benefits, prognosis, and outcomes. - Dressings placed today: bacitracin, adaptic, gauze, PHU. - OT today for splinting. Maintain splint until surgery. - Pain medication refilled. - Follow up one week post operatively. documented in this [id number] NoteOCCUPATIONAL THERAPY HAND CLINIC EVALUATION Visit #: 1 Referred to Occupational Therapy for evaluation and treatment. Referring Provider: Cely Puente MD Diagnosis: R hand MF and SF lacerations R MF distal amputation R SF extensor tendon injury DOI/Mechanism: 05/30/24 - table saw injury Surgery: scheduled for 06/09/24 Precautions: Per verbal order from Landy Nick, extension splint with no ROM at this time Payor: [employer] - HMO/PPO/POS / Plan: SUPERMED PPO/CLASSIC/PLUS / Product Type: PPO Tu Johnson is a 28 year old R hand dominant male. Past Medical History as of 06/02/2024: Past Medical History: Diagnosis Date Current smoker 06/01/2024 Comment on above: Added secondary to documentation in Social History. Essential (primary) hypertension Fracture of cervical vertebra (HCC) 03/14/2016 Gouty arthritis of right ankle 06/01/2024 Hand laceration involving tendon, right, subsequent encounter 05/30/2024 Open fracture of middle phalanx of finger 05/29/2024 Medications: See snapshot for updated medication list. 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 SUBJECTIVE: Patient's Goals: to get back to normal use of R hand Pain scale: Pain is 9/10. Pain located at R SF and tip of MF and is described as sharp and throbbing. To manage symptoms, patient instructed to complete home exercise program, to utilize splint as instructed, and to use modalities as instructed. OBJECTIVE: Functional Deficits/ADL Status: Patient reports difficulties with toilet hygiene. Has assistance, from Darlene Castillo. Has a two month old at home. Not currently working. Appearance: Hand wrapped upon arrival to OT Range of motion over time: AROM (PROM noted in parenthesis) Finger motion: distance to distal palmar crease (DPC), measured in cm Date: Arm: Distance to DPC Index Middle Ring Small Intact per patient, not formally assessed Treatment Today: See Home Exercise Program Home Exercise Program (HEP): Reach and grab exercise for edema Wound care completed by nurses prior to OT visit, nurses educated pt on wound care for home Splint as instructed Precautions - NWB, no heavy lifting, light use of hand with splint on Orthosis: Date: 06/02/24 - Fabricated custom orthosis - Forearm based digital extension splint Purpose of orthosis: protect healing tendon Wearing schedule: At all times except remove to shower Patient was instructed in wearing schedule, care, and precautions. Pt educated in Home Exercise Program (HEP), Precautions, and Orthotic Management Pt response to education: Return demonstration, Verbalized understanding ASSESSMENT: Tu Johnson is a 28 year old male 3 day(s) s/p R MF and SF lacerations from table saw. Pt has surgery scheduled for 06/09/24. Pt referred to OT today for protective splinting and initiation of HEP. Pt has moderate edema and severe pain at this time. Pt has restrictions for ROM of R wrist and R digits. Pt appears to understand OT recommendations and precautions at this time. Pt would benefit from skilled OT to improve R UE function. Pt would benefit from skilled OT to address problem list below. Prognosis for therapy: Fair Problems include: Decreased Range of Motion, Edema, Pain, Impaired Self Care Skills, Impaired Home Management Skills, Unable to perform Full Work Tasks, Open Wound, Lack of home program, and Healing Structures PLAN OF CARE: Patient would benefit from Occupational Therapy for the following goals: GOALS SHORT-TERM GOALS - achieve in 3 visits: Goal Status last updated on 06/02/24 Pt will be independent with home exercise program as instructed by therapist. Status: INITIATED Pt will demonstrate/verbalize use, care of, and precautions regarding orthoses. Status: INITIATED Pt will be able to don/doff orthosis independently. Status: INITIATED Pt will be independent with scar management techniques. Status: INITIATED Pt. will be able to complete wound care independently. Status: INITIATED Pt will be independent with edema reduction techniques. Status: INITIATED Pt will be able to use right UE in light daily activities. Status: INITIATED LONG-TERM GOALS - achieve in 10 visits: Goal Status last updated on 06/02/24 Pt will achieve functional strength to perform household carrying and lifting tasks. Status: INITIATED Pt will integrate right UE into bimanual activities to complete early childhood worker tasks. Status: INITIATED Pt will integrate right UE into bimanual activities for completion of work tasks. Status: INITIATED Additional goals to be established based on patient's progress and therapy needs in subsequent visits. Frequency: Patient instructed to call OT if problems occur with home program Plan to f/u at next physician appointment on 06/15/24 Pt may go to OT closer to home per request, [facility] hand out provided Interventions: P (more content not included)...[facility] [id number] History of Present illness Narrative* Federico Galeana, OTR/L, CHT - 06/02/2024 1:30 PM EST OCCUPATIONAL THERAPY HAND CLINIC EVALUATION Visit #: 1 Referred to Occupational Therapy for evaluation and treatment. Referring Provider: Cely Puente MD Diagnosis: R hand MF and SF lacerations R MF distal amputation R SF extensor tendon injury DOI/Mechanism: 05/30/24 - table saw injury Surgery: scheduled for 06/09/24 Precautions: Per verbal order from Landy Nick, extension splint with no ROM at this time Payor: [employer] - HMO/PPO/POS / Plan: SUPERMED PPO/CLASSIC/PLUS / Product Type: MARIA ISABEL Johnson is a 28 year old R hand dominant male. Past Medical History as of 06/02/2024: Past Medical History: Diagnosis Date Current smoker 06/01/2024 Comment on above: Added secondary to documentation in Social History. Essential (primary) hypertension Fracture of cervical vertebra (HCC) 03/14/2016 Gouty arthritis of right ankle 06/01/2024 Hand laceration involving tendon, right, subsequent encounter 05/30/2024 Open fracture of middle phalanx of finger 05/29/2024 Medications: See snapshot for updated medication list. 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 SUBJECTIVE: Patient's Goals: to get back to normal use of R hand Pain scale: Pain is 9/10. Pain located at R SF and tip of MF and is described as sharp and throbbing. To manage symptoms, patient instructed to complete home exercise program, to utilize splint as instructed, and to use modalities as instructed. OBJECTIVE: Functional Deficits/ADL Status: Patient reports difficulties with toilet hygiene. Has assistance, from Darlene Castillo. Has a two month old at home. Not currently working. Appearance: Hand wrapped upon arrival to OT Range of motion over time: AROM (PROM noted in parenthesis) Finger motion: distance to distal palmar crease (DPC), measured in cm Date: Arm: Distance to DPC Index Middle Ring Small Intact per patient, not formally assessed Treatment Today: See Home Exercise Program Home Exercise Program (HEP): Reach and grab exercise for edema Wound care completed by nurses prior to OT visit, nurses educated pt on wound care for home Splint as instructed Precautions - NWB, no heavy lifting, light use of hand with splint on Orthosis: Date: 06/02/24 - Fabricated custom orthosis - Forearm based digital extension splint Purpose of orthosis: protect healing tendon Wearing schedule: At all times except remove to shower Patient was instructed in wearing schedule, care, and precautions. Pt educated in Home Exercise Program (HEP), Precautions, and Orthotic Management Pt response to education: Return demonstration, Verbalized understanding ASSESSMENT: Tu Johnson is a 28 year old male 3 day(s) s/p R MF and SF lacerations from table saw. Pt has surgery scheduled for 06/09/24. Pt referred to OT today for protective splinting and initiation of HEP. Pt has moderate edema and severe pain at this time. Pt has restrictions for ROM of R wrist and R digits. Pt appears to understand OT recommendations and precautions at this time. Pt would benefit from skilled OT to improve R UE function. Pt would benefit from skilled OT to address problem list below. Prognosis for therapy: Fair Problems include: Decreased Range of Motion, Edema, Pain, Impaired Self Care Skills, Impaired Home Management Skills, Unable to perform Full Work Tasks, Open Wound, Lack of home program, and Healing Structures PLAN OF CARE: Patient would benefit from Occupational Therapy for the following goals: GOALS SHORT-TERM GOALS - achieve in 3 visits: Goal Status last updated on 06/02/24 Pt will be independent with home exercise program as instructed by therapist. Status: INITIATED Pt will demonstrate/verbalize use, care of, and precautions regarding orthoses. Status: INITIATED Pt will be able to don/doff orthosis independently. Status: INITIATED Pt will be independent with scar management techniques. Status: INITIATED Pt. will be able to complete wound care independently. Status: INITIATED Pt will be independent with edema reduction techniques. Status: INITIATED Pt will be able to use right UE in light daily activities. Status: INITIATED LONG-TERM GOALS - achieve in 10 visits: Goal Status last updated on 06/02/24 Pt will achieve functional strength to perform household carrying and lifting tasks. Status: INITIATED Pt will integrate right UE into bimanual activities to complete early childhood worker tasks. Status: INITIATED Pt will integrate right UE into bimanual activities for completion of work tasks. Status: INITIATED Additional goals to be established based on patient's progress and therapy needs in subsequent visits. Frequency: Patient instructed to call OT if problems occur with home program Plan to f/u at next physician appointment on 06/15/24 Pt may go to OT closer to home per request, [facility] hand out provided Interventions: PROM, AROM, AAROM, Tendon gliding exercises, Edema Control, Wound Care, Scar Management, Modalities, Pain management, Splinting, and Home program Plan of care discussed with patient and agreed upon. Risks and benefits of Occupational Therapy discussed with patient. Plan for next visit: to be seen at post op appointment Start Time: 1204 Stop Time: 1228 Total Treatment Minutes: 24 minutes Timed Code Treatments by Procedure: Total Timed Code Treatment Minutes: Un-Timed Code Treatments by Procedure: OT MACRINA LOW COMPLEX 30 MIN: 1 1 WHFO Total Un-Timed Code Treatment Minutes: 24 minutes ERIC Barroso/DARIUS Vergara documented in this [id number] History of Present illness Narrative* Charlene Nick PA-C - 06/02/2024 11:54 AM EST Images from the original note were not included. Chief Complaint: Right hand laceration x 05/30/2024. History of the Present Illness: 28 year old right hand dominant male presents with a 3 day long history of right middle, ring, and small finger pain s/p having a laceration by table saw. He immediately presented to the emergency department where he was treated. He has surgery scheduled for for nextweek but has concerns about pain control. He has been taking ibuprofen and oxycodone for pain. PainScore: 9/10 (right hand). He has also been taking his antibiotics. Denies fever, chills, nausea, and vomiting. Denies purulent drainage and discharge. Past Medical History: Patient Active Problem List: Hand laceration involving tendon, right, subsequent encounter [S61.411D, S66.431D] Current smoker [F17.200] Fracture of cervical vertebra (HCC) [S12.9XXA] Gouty arthritis of right ankle [M10.9] Open fracture of middle phalanx of finger [S66.235B] Family History: No family history on file. Review of Systems: - Constitutional: negative - Neck: negative - Cardiovascular: negative - Integumentary: negative - Neurologic: Reviewed with no complaints - Hematological/Lymphatic: negative (no anemia, bleeding, bruising) - Psychiatric: Reviewed with no complaints - Musculoskeletal: See HPI. All other systems have been reviewed and are negative except as noted in the HPI. Physical Exam: - Constitutional: alert, appears stated age, cooperative, and no distress - Eyes: Anicteric sclera. Pupils are equally round and reactive to light. Extraocular movements areintact. - Cardiovascular: No extremity, swelling, varices, edema, pallor, erythema - Respiratory: No respiratory distress - Psychiatric: normal affect - Hematologic/Lymphatic/Immunologic: No supraclavicular lymphadenopathy, No axillary lymphadenopathy, No supratrochlear lymphadenopathy. - Integumentary: Skin color, texture, turgor normal. No rashes or lesions. - Neurologic: Intact and symmetric. - Musculoskeletal: Right middle finger amputated at the distal phalanx. Maceration noted at middle,ring, and small fingers. Small finger sits in flexion at the PIP joint. Sutures remain intact. No erythema, drainage, or warmth. Active bleeding at distal phalanx of small finger. Imaging: Radiographs were personally viewed and interpreted. Assessment & Plan Hand laceration involving tendon, right, subsequent encounter - Dressings removed. - Discussed upcoming surgery, risks, benefits, prognosis, and outcomes. - Dressings placed today: bacitracin, adaptic, gauze, PHU. - OT today for splinting. Maintain splint until surgery. - Pain medication refilled. - Follow up one week post operatively. Traumatic amputation of finger, initial encounter - See above. Acute pain due to injury - Advised to stop NSAIDs three days prior to surgery. Orders: oxyCODONE 5 MG immediate release tablet; Take 1 Tablet by mouth every 6 hours as needed for Pain for up to 7 days. acetaminophen (TYLENOL) 500 MG tablet; Take 1-2 Tablets by mouth every 8 hours. gabapentin (NEURONTIN) 100 MG capsule; Take 1 Capsule by mouth 3 times daily for 30 days. Diagnosis and treatment plan discussed with the patient. The patient stated understanding and agreement. Charlene Nick PA-C 06/02/24 12:06 PM documented in this [id number] Telephone encounter Note* Telephone Encounter - Rossy Norwood RN - 06/01/2024 10:26 AM EST Spoke with pt regarding pain regimen. Pt describes constant pain, throbbing in nature. Pt currently taking oxycodone every 5 (rx for every 6 hours) and ibuprofen 400 mg twice a day. . Discussed taking oxycodone as prescribed as we risk pharmacy not refilling early. Also discussed taking ibuprofen 600mg every 6 hours with food, take every 6 for the next 2-3 days to allow for inflammatory response to occur. Pt to continue to elevate arm, can use ice being sure to keep splint dry, wiggle fingers. Pt aware to keep splint intact, dry until OR. Pt agrees to POC. Preferred pharmacy for oxycodone refill is [facility] in [facility]. Current rx ends 2/5-pt aware we might not be able to fill until 2/6 based on frequency of rx. [facility] Work Phone: [phone] Miscellaneous Notes* Telephone Encounter - Rossy Norwood RN - 06/01/2024 10:26 AM EST Spoke with pt regarding pain regimen. Pt describes constant pain, throbbing in nature. Pt currently taking oxycodone every 5 (rx for every 6 hours) and ibuprofen 400 mg twice a day. . Discussed taking oxycodone as prescribed as we risk pharmacy not refilling early. Also discussed taking ibuprofen 600mg every 6 hours with food, take every 6 for the next 2-3 days to allow for inflammatory response to occur. Pt to continue to elevate arm, can use ice being sure to keep splint dry, wiggle fingers. Pt aware to keep splint intact, dry until OR. Pt agrees to POC. Preferred pharmacy for oxycodone refill is [facility] in [facility]. Current rx ends 2/5-pt aware we might not be able to fill until 2/6 based on frequency of rx. * Telephone Encounter - Sharron Santacruz - 06/01/2024 8:56 AM EST Please call patient in regards to pain medication refill. Pain meds now not working so good. Please call patient TONY they run out of meds by tomorrow. [phone] documented in this [id number] Instructions* Discharge Instructions* Elma Parra RN - 06/01/2024 8:58 AM EST June 01, 2024 Mr. Johnson, You are scheduled for your procedure/surgery on 06/09/[address] Puente at the [facility] location. You will be contacted on 06/08/2024 between 1-3 PM and provided with your arrival time. [address] [place] [address] [facility] PARKING INSTRUCTIONS Please plan extra time for parking and shuttle service. We recommend arriving at least 15 minutes prior to the time your care team advises you need to be here. Parking is available in the [facility] accessible from [place]. 18/11 shuttle service from the garage to the [facility] is available. Go to the ground floor of the parking garage to reach the shuttle pick-up station located just outside the elevator and stairs. Shuttle service will drop you off at the [facility] entrance. Solar Manager service is available at the [facility] entrance if you prefer early childhood over parking. [facility] [employer] Services Hours: Friday-Friday 5:30 am to 8:00 pm Enter the [facility] entrance and go to the Admitting/Registration desk to check in for your procedure. PATIENT MEDICATION INSTRUCTIONS: On the morning of your surgery, please take only the following medications, with a small sip of water: NONE *Patient will hold morning medications the day of surgery Please hold vitamin/mineral supplements as well as any topical lotions/creams or patches the morning of your surgery/procedure. Do not take any Aspirin 7 days before the surgery. Do not take any Ibuprofen products/NSAIDs 3 days before surgery. May take over the counter Acetaminophen (Tylenol) as needed for pain. Do not take any herbal medications 7 days prior to surgery (Fish Oil, Ginseng, Ginko Biloba) DAY OF SURGERY NOTES: IN BOLD TEXT ? Expect a call from [facility] one business day prior to surgery for surgery arrival time and location. ? Please plan to restart your medications the day after surgery unless otherwise explicitly instructed. ? Please contact your surgeon s/proceduralist s office for any surgical or recovery types of questions. ? CANCELLING YOUR SURGERY/PROCEDURE: If you get a cold, are not feeling well, or become , please call your surgeon s office as soon as possible. ? Eating and drinking before surgery: Adult Patients: No solid food or dairy products 8 hours prior to surgery check in time. Sips of plain water are allowed up to 2 hours prior to your procedure/surgery arrival time. A sip of water with approved morning medications is acceptable. Post-op Nausea and Vomiting: A risk of anesthesia is nausea and/or vomiting (PONV). Certain patients are at higher risk than others. Talk to your anesthesiologist about the plan to minimize this risk. In general, it is best to start with only ice chips or small sips of water, then progress to clear, non-alcoholic fluids. You do not have to eat if you do not feel like it; fluids are the most important in the first 24 hours after surgery. If you start to eat, try bananas, applesauce, plain toast, saltine crackers, or broth; avoid fried or fatty foods. Make sure to eat something about 15 minutes before taking any pain medications. Seek medical attention for any prolonged PONV and signs of dehydration. ON THE DAY OF SURGERY: ? DO bring your ID, insurance card, medication list, and a small amount of ballesteros for filling prescriptions and any medical co-pays. ? Do NOT wear any jewelry, (including rings, earrings, or mouth, tongue, or body piercing's). Metaljewelry could cause constriction, amputation, or voss. Loose or bulky things in your mouth can be unsafe and result in breathing problems. ? DO bring glasses if you wear contacts and other assistance items such as oxygen, inhaler, cane, walker, etc. ? Do NOT bring valuables, credit cards, or large amounts of ballesteros. ? Do NOT wear lotion or strong-smelling fragrance (perfume, cologne, cream or lotion). ? ARRANGE FOR A RIDE: If you are scheduled to go home the same day of surgery, a responsible adult MUST drive or accompany you home in a car, cab, shared ride service, or Metro-van. You will not be allowed to drive yourself home or travel home alone. Your surgery may be cancelled if you do not havea ride. A responsible adult must stay with you after surgery. Please call [employer] if you need transportation assistance or have concerns about going home [phone]. ? PLEASE BE ON TIME. A late arrival may result in the cancellation/ delay of your surgery. Thank you for choosing [facility]; it is our pleasure to care for you If you become ill prior to procedure or surgery, or a family emergency should arise, please call the provider or surgeon's office directly. documented in this [id number] Telephone encounter Note* Telephone Encounter - Sharron Santacruz - 06/01/2024 8:56 AM EST Please call patient in regards to pain medication refill. Pain meds now not working so good. Please call patient TONY they run out of meds by tomorrow. [phone] [id number] Evaluation note* PAT Call History - Elma Parra RN - 06/01/2024 8:36 AM EST Images from the original note were not included. Telephone History Tu Johnson, [id number] 06/01/2024 28 year old 255 lbs 6' 0 Patient was identified by name and date of . Needs: Physical, Neck Circumference on DOS. Stop 4, *Elevated BP in ED note 05/30/2024 If the patient becomes ill prior to procedure or surgery, they are to call their provider or surgeon's office directly. Date of Surgery: 06/09/2024 Surgeon: Rica Type of Surgery: RIGHT REPAIR, TENDON, EXTENSOR, REDUCTION, OPEN, HAND, Fifth digit middle phalanx HISTORY OF PRESENT ILLNESS: Telephone history prior to surgery or procedure with anesthesia scheduled at [facility] ED Visit (05/30/2024) Partial Note- Hand injury/table saw 28 year old male right-hand dominant presenting to the ED for multiple lacerations to his right hand after table saw accident.. Patient endorses he was using a table saw when he accidentally cut his 3rd and 5th digits. Patient endorses some numbness and tingling to the digits as well as severe pain. He was having trouble moving the 5th digit. Patient was transferred here from [facility] for surgical consultation. A/P 28-year-old male with a past medical history listed above who presents to the emergency department as a transfer from [facility] for hand surgery consult. On initial presentation patient was resting comfortably in his hemodynamically stable and afebrile. Outside images were reviewed which is consistent with traumatic subluxation of the third distal interphalangeal joint with partial amputation of the third distal phalanx occurring just distal to the base and traumatic subluxation of the fifthproximal interphalangeal joint with fractures of the proximal phalangeal head and intermediate phalangeal base. Patient received updated tetanus, IV antibiotics and pain control prior to evaluation at [facility]. Hand surgery was consulted, evaluated the patient at bedside, and repaired the laceration aswell as splinted the injury at bedside. Recommended follow up with Plastic surgery Clinic as well as antibiotics. Patient was given short course of oxycodone for pain. Patient was pain was well-controlled in the emergency department. Workup and findings were discussed with the patient and all questions were answered. Plastic Surgery Consult 28 year old RHD male with multiple injuries to right hand after working at home with table saw. Including partial amputation of DP of RMF, laceration of the zone 2 extensor tendon of RSF with accompanying MP fracture. Superficial abrasion of tip of RRF. - revision amputation of RMF at bedside - laceration repair of RSF injury - splinting - will require surgical exploration and repair of structures as outpatient - Follow up with Dr. Puente's office for surgery (schedulers messaged) - keoralia for discharge - Dispo: per ED STOP-BANG Row Name 06/01/24 0836 History of sleep apnea? No Snoring Yes Tired/Fatigued Yes Observed Apnea No Pressure: Hypertension Yes BMI greater than 35 0 Age greater than 50 0 Gender male? 1 Score 4 Advised to discuss Sleep study with PCP - Patient receptive EXERCISE CAPACITY: 4-10 mets ALLERGIES: Patient has no known allergies. PREVIOUS ANESTHETIC EXPERIENCES AND INTUBATION HISTORY: No previous anesthetic complication FAMILY HISTORY OF ANESTHETIC COMPLICATIONS: No PAST MEDICAL HISTORY: Past Medical History: Diagnosis Date Current smoker 06/01/2024 Comment on above: Added secondary to documentation in Social History. Essential (primary) hypertension Fracture of cervical vertebra (HCC) 03/14/2016 Gouty arthritis of right ankle 06/01/2024 Hand laceration involving tendon, right, subsequent encounter 05/30/2024 Open fracture of middle phalanx of finger 05/29/2024 PROBLEM LIST: Patient Active Problem List: Hand laceration involving tendon, right, subsequent encounter [S61.411D, S66.921D] Current smoker [F17.200] Fracture of cervical vertebra (HCC) [S12.9XXA] Gouty arthritis of right ankle [M10.9] Open fracture of middle phalanx of finger [S62.629B] Past Medical History and Review of Systems Pulmonary (+) no home oxygen, a smoker (attempting to quit down to 1-2 cigs/day) (-) sleep apnea, COPD, asthma, shortness of breath, pneumonia in last 3 months, pulmonary embolism,recent URI, tuberculosis, home oxygen Dental (-) teeth problems, dental plate or appliance and TMJ pain Endo (+) obesity (-) diabetes mellitus, hypothyroidism, 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 Neuro/Psych (+) no cerebral palsy, no attention deficit hyperactivity disorder, no intellectual disability (-) CVA, depression, bipolar disorder, anxiety/panic attacks, schizophrenia, ADHD, cerebral palsy, dementia, seizures Comment: Daily drinker - denies any w/d sx' Cardiovascular (+) 4-10 METs, hypertension (Compliant with meds) well controlled (-) exercise intolerance, past IL, CAD, CABG/stent, AAA, arrhythmia, angina, CHF, valvular problems/murmurs, pacemaker/AICD, D[place]TON, PND, orthopnea Comment: Significant elevation of BP in ED visit 05/30/2024 Denies: CP, SOB, palpitations, dizziness, or syncope. GI/Hepatic/Renal (+) bowel prep (-) no GERD, renal disease, liver disease, hiatal hernia, PUD, hepatitis, no cirrhosis, gallbladderdisease, abdominal pain, nephrolithiasis Heme/Other (-) no DVT, bleeding disorder, anemia, anticoagulation therapy, sickle cell disease, HIV and no refusal of blood products Other ROS: Musculoskeletal Gouty arthritis bilateral ankle and right knee, (Last occurrence March 2024) Hx of C7 endplate fx (2015) Hand laceration involving tendon (R), Open fracture of middle phalanx of finger - Scheduled RIGHT REPAIR, TENDON, EXTENSOR, REDUCTION, OPEN, HAND, Fifth digit middle phalanx PAST SURGICAL HISTORY: Past Surgical History: Procedure Laterality Date CIRCUMCISION TONSILLECTOMY 2011 SOCIAL HISTORY: Social History Socioeconomic History Marital status: Single Tobacco Use Smoking status: Every Day Types: Cigarettes Smokeless tobacco: Never Tobacco comments: Cutting down to 1-2 cigs a day ( 05/2024) SS Substance and Sexual Activity Alcohol use: Yes Comment: daily 2-3 mixed drinks after work Drug use: Not Currently PAIN ASSESSMENT: Severity: 9 Location: Hand pain LABORATORY DATA: Type & Screen (Last result in the past 30 days) 05/30/2024 2:42 AM ABO Rh O Positive Screen Int. Negative CBC (last 3 years, up to 8 values) 05/30/2024 2:42 AM WBC 10.9 RBC 5.25 Hgb 17.4 Hct 50.4 MCV 96 RDW 13.1 Plt 200 BMP (last 3 years, up to 8 values) 05/30/2024 2:42 AM Na 144 K 4.1 Cl 104 CO2 26 Gap 18 Glu 130 BUN 6 Cr 0.76 Ca 9.4 eGFR 127 PT/PTT/INR (last 3 years, up to 8 values) 05/30/2024 2:42 AM aPTT 30 INR 1.04 Arterial Blood Gases None No result for BNP LFT's (last 3 years, up to 8 values) No lab values to display. Urinalysis No lab values to display. No results found for: HBA1C No results found for: TSH TESTS REVIEWED: CXRay: No Chest x-ray found EKG: Last ECG Date: Not Found ECHO: Echocardiogram date: Not Found No results found for this basename: LVEF Stress test date: Last StressTest: none found going back to 05/30/2024 CURRENT MEDICATION LIST: Current Outpatient Medications Medication Sig Dispense Refill allopurinol (ZYLOPRIM) 100 MG tablet Take 100 mg by mouth daily. indomethacin (INDOCIN) 50 MG capsule Take 50 mg by mouth 2 times daily. lisinopril (ZESTRIL) 30 MG tablet Take 30 mg by mouth daily. cephALEXin (KEFLEX) 500 MG capsule Take 1 Capsule by mouth 4 times daily. 40 Capsule 0 oxyCODONE 5 MG immediate release tablet Take 1 Tablet by mouth every 6 hours as needed for Pain forup to 3 days. 12 Tablet 0 No current facility-administered medications for this visit. CURRENT MEDICATIONS: Aspirin: No NSAIDS: Yes PRN Other Antiplatelet Medication: No Anticoagulants: No Steroids: No SGLT-2/GLP-1: No PATIENT MEDICATION INSTRUCTIONS: On the morning of your surgery, please take only the following medications, with a small sip of water: NONE *Patient will hold morning medications the day of surgery Please hold vitamin/mineral supplements as well as any topical lotions/creams or patches the morning of your surgery/procedure. Do not take any Aspirin 7 days before the surgery. Do not take any Ibuprofen products/NSAIDs 3 days before surgery. May take over the counter Acetaminophen (Tylenol) as needed for pain. Do not take any herbal medications 7 days prior to surgery (Fish Oil, Ginseng, Ginko Biloba) DAY OF SURGERY NOTES: IN BOLD TEXT ? Expect a call from [facility] one business day prior to surgery for surgery arrival time and location. ? Please plan to restart your medications the day after surgery unless otherwise explicitly instructed. ? Please contact your surgeon s/proceduralist s office for any surgical or recovery types of questions. ? CANCELLING YOUR SURGERY/PROCEDURE: If you get a cold, are not feeling well, or become , please call your surgeon s office as soon as possible. ? Eating and drinking before surgery: Adult Patients: No solid food or dairy products 8 hours prior to surgery check in time. Sips of plain water are allowed up to 2 hours prior to your procedure/surgery arrival time. A sip of water with approved morning medications is acceptable. Post-op Nausea and Vomiting: A risk of anesthesia is nausea and/or vomiting (PONV). Certain patients are at higher risk than others. Talk to your anesthesiologist about the plan to minimize this risk. In general, it is best to start with only ice chips or small sips of water, then progress to clear, non-alcoholic fluids. You do not have to eat if you do not feel like it; fluids are the most important in the first 24 hours after surgery. If you start to eat, try bananas, applesauce, plain toast, saltine crackers, or broth; avoid fried or fatty foods. Make sure to eat something about 15 minutes before taking any pain medications. Seek medical attention for any prolonged PONV and signs of dehydration. ON THE DAY OF SURGERY: ? DO bring your ID, insurance card, medication list, and a small amount of ballesteros for filling prescriptions and any medical co-pays. ? Do NOT wear any jewelry, (including rings, earrings, or mouth, tongue, or body piercing's). Metaljewelry could cause constriction, amputation, or voss. Loose or bulky things in your mouth can be unsafe and result in breathing problems. ? DO bring glasses if you wear contacts and other assistance items such as oxygen, inhaler, cane, walker, etc. ? Do NOT bring valuables, credit cards, or large amounts of ballesteros. ? Do NOT wear lotion or strong-smelling fragrance (perfume, cologne, cream or lotion). ? ARRANGE FOR A RIDE: If you are scheduled to go home the same day of surgery, a responsible adult MUST drive or accompany you home in a car, cab, shared ride service, or Metro-van. You will not be allowed to drive yourself home or travel home alone. Your surgery may be cancelled if you do not havea ride. A responsible adult must stay with you after surgery. Please call [facility] Social Work if you need transportation assistance or have concerns about going home [phone]. ? PLEASE BE ON TIME. A late arrival may result in the cancellation/ delay of your surgery. Thank you for choosing [facility]; it is our pleasure to care for you Elma Parra RN, RN Time Spent Performing this Telephone History: 30 min [id number] Miscellaneous Notes* PAT Call History - Elma Parra RN - 06/01/2024 8:36 AM EST Images from the original note were not included. Telephone History Tu Johnson, [id number] 06/01/2024 28 year old 255 lbs 6' 0 Patient was identified by name and date of . Needs: Physical, Neck Circumference on DOS. Stop 4, *Elevated BP in ED note 05/30/2024 If the patient becomes ill prior to procedure or surgery, they are to call their provider or surgeon's office directly. Date of Surgery: 06/09/2024 Surgeon: Rica Type of Surgery: RIGHT REPAIR, TENDON, EXTENSOR, REDUCTION, OPEN, HAND, Fifth digit middle phalanx HISTORY OF PRESENT ILLNESS: Telephone history prior to surgery or procedure with anesthesia scheduled at [facility] ED Visit (05/30/2024) Partial Note- Hand injury/table saw 28 year old male right-hand dominant presenting to the ED for multiple lacerations to his right hand after table saw accident.. Patient endorses he was using a table saw when he accidentally cut his 3rd and 5th digits. Patient endorses some numbness and tingling to the digits as well as severe pain. He was having trouble moving the 5th digit. Patient was transferred here from [facility] for surgical consultation. A/P 28-year-old male with a past medical history listed above who presents to the emergency department as a transfer from [facility] for hand surgery consult. On initial presentation patient was resting comfortably in his hemodynamically stable and afebrile. Outside images were reviewed which is consistent with traumatic subluxation of the third distal interphalangeal joint with partial amputation of the third distal phalanx occurring just distal to the base and traumatic subluxation of the fifthproximal interphalangeal joint with fractures of the proximal phalangeal head and intermediate phalangeal base. Patient received updated tetanus, IV antibiotics and pain control prior to evaluation at [facility]. Hand surgery was consulted, evaluated the patient at bedside, and repaired the laceration aswell as splinted the injury at bedside. Recommended follow up with Plastic surgery Clinic as well as antibiotics. Patient was given short course of oxycodone for pain. Patient was pain was well-controlled in the emergency department. Workup and findings were discussed with the patient and all questions were answered. Plastic Surgery Consult 28 year old RHD male with multiple injuries to right hand after working at home with table saw. Including partial amputation of DP of RMF, laceration of the zone 2 extensor tendon of RSF with accompanying MP fracture. Superficial abrasion of tip of RRF. - revision amputation of RMF at bedside - laceration repair of RSF injury - splinting - will require surgical exploration and repair of structures as outpatient - Follow up with Dr. Puente's office for surgery (schedulers messaged) - keflex for discharge - Dispo: per ED STOP-BANG Row Name 06/01/24 0836 History of sleep apnea? No Snoring Yes Tired/Fatigued Yes Observed Apnea No Pressure: Hypertension Yes BMI greater than 35 0 Age greater than 50 0 Gender male? 1 Score 4 Advised to discuss Sleep study with PCP - Patient receptive EXERCISE CAPACITY: 4-10 mets ALLERGIES: Patient has no known allergies. PREVIOUS ANESTHETIC EXPERIENCES AND INTUBATION HISTORY: No previous anesthetic complication FAMILY HISTORY OF ANESTHETIC COMPLICATIONS: No PAST MEDICAL HISTORY: Past Medical History: Diagnosis Date Current smoker 06/01/2024 Comment on above: Added secondary to documentation in Social History. Essential (primary) hypertension Fracture of cervical vertebra (HCC) 03/14/2016 Gouty arthritis of right ankle 06/01/2024 Hand laceration involving tendon, right, subsequent encounter 05/30/2024 Open fracture of middle phalanx of finger 05/29/2024 PROBLEM LIST: Patient Active Problem List: Hand laceration involving tendon, right, subsequent encounter [S61.411D, S66.921D] Current smoker [F17.200] Fracture of cervical vertebra (HCC) [S12.9XXA] Gouty arthritis of right ankle [M10.9] Open fracture of middle phalanx of finger [S62.629B] Past Medical History and Review of Systems Pulmonary (+) no home oxygen, a smoker (attempting to quit down to 1-2 cigs/day) (-) sleep apnea, COPD, asthma, shortness of breath, pneumonia in last 3 months, pulmonary embolism,recent URI, tuberculosis, home oxygen Dental (-) teeth problems, dental plate or appliance and TMJ pain Endo (+) obesity (-) diabetes mellitus, hypothyroidism, 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 Neuro/Psych (+) no cerebral palsy, no attention deficit hyperactivity disorder, no intellectual disability (-) CVA, depression, bipolar disorder, anxiety/panic attacks, schizophrenia, ADHD, cerebral palsy, dementia, seizures Comment: Daily drinker - denies any w/d sx' Cardiovascular (+) 4-10 METs, hypertension (Compliant with meds) well controlled (-) exercise intolerance, past IL, CAD, CABG/stent, AAA, arrhythmia, angina, CHF, valvular problems/murmurs, pacemaker/AICD, [place], PND, orthopnea Comment: Significant elevation of BP in ED visit 05/30/2024 Denies: CP, SOB, palpitations, dizziness, or syncope. GI/Hepatic/Renal (+) bowel prep (-) no GERD, renal disease, liver disease, hiatal hernia, PUD, hepatitis, no cirrhosis, gallbladderdisease, abdominal pain, nephrolithiasis Heme/Other (-) no DVT, bleeding disorder, anemia, anticoagulation therapy, sickle cell disease, HIV and no refusal of blood products Other ROS: Musculoskeletal Gouty arthritis bilateral ankle and right knee, (Last occurrence March 2024) Hx of C7 endplate fx (2016) Hand laceration involving tendon (R), Open fracture of middle phalanx of finger - Scheduled RIGHT REPAIR, TENDON, EXTENSOR, REDUCTION, OPEN, HAND, Fifth digit middle phalanx PAST SURGICAL HISTORY: Past Surgical History: Procedure Laterality Date CIRCUMCISION TONSILLECTOMY 2011 SOCIAL HISTORY: Social History Socioeconomic History Marital status: Single Tobacco Use Smoking status: Every Day Types: Cigarettes Smokeless tobacco: Never Tobacco comments: Cutting down to 1-2 cigs a day ( 05/2024) SS Substance and Sexual Activity Alcohol use: Yes Comment: daily 2-3 mixed drinks after work Drug use: Not Currently PAIN ASSESSMENT: Severity: 9 Location: Hand pain LABORATORY DATA: Type & Screen (Last result in the past 30 days) 05/30/2024 2:42 AM ABO Rh O Positive Screen Int. Negative CBC (last 3 years, up to 8 values) 05/30/2024 2:42 AM WBC 10.9 RBC 5.25 Hgb 17.4 Hct 50.4 MCV 96 RDW 13.1 Plt 200 BMP (last 3 years, up to 8 values) 05/30/2024 2:42 AM Na 144 K 4.1 Cl 104 CO2 26 Gap 18 Glu 130 BUN 6 Cr 0.76 Ca 9.4 eGFR 127 PT/PTT/INR (last 3 years, up to 8 values) 05/30/2024 2:42 AM aPTT 30 INR 1.04 Arterial Blood Gases None No result for BNP LFT's (last 3 years, up to 8 values) No lab values to display. Urinalysis No lab values to display. No results found for: HBA1C No results found for: TSH TESTS REVIEWED: CXRay: No Chest x-ray found EKG: Last ECG Date: Not Found ECHO: Echocardiogram date: Not Found No results found for this basename: LVEF Stress test date: Last StressTest: none found going back to 05/30/2024 CURRENT MEDICATION LIST: Current Outpatient Medications Medication Sig Dispense Refill allopurinol (ZYLOPRIM) 100 MG tablet Take 100 mg by mouth daily. indomethacin (INDOCIN) 50 MG capsule Take 50 mg by mouth 2 times daily. lisinopril (ZESTRIL) 30 MG tablet Take 30 mg by mouth daily. cephALEXin (KEFLEX) 500 MG capsule Take 1 Capsule by mouth 4 times daily. 40 Capsule 0 oxyCODONE 5 MG immediate release tablet Take 1 Tablet by mouth every 6 hours as needed for Pain forup to 3 days. 12 Tablet 0 No current facility-administered medications for this visit. CURRENT MEDICATIONS: Aspirin: No NSAIDS: Yes PRN Other Antiplatelet Medication: No Anticoagulants: No Steroids: No SGLT-2/GLP-1: No PATIENT MEDICATION INSTRUCTIONS: On the morning of your surgery, please take only the following medications, with a small sip of water: NONE *Patient will hold morning medications the day of surgery Please hold vitamin/mineral supplements as well as any topical lotions/creams or patches the morning of your surgery/procedure. Do not take any Aspirin 7 days before the surgery. Do not take any Ibuprofen products/NSAIDs 3 days before surgery. May take over the counter Acetaminophen (Tylenol) as needed for pain. Do not take any herbal medications 7 days prior to surgery (Fish Oil, Ginseng, Ginko Biloba) DAY OF SURGERY NOTES: IN BOLD TEXT ? Expect a call from [facility] one business day prior to surgery for surgery arrival time and location. ? Please plan to restart your medications the day after surgery unless otherwise explicitly instructed. ? Please contact your surgeon s/proceduralist s office for any surgical or recovery types of questions. ? CANCELLING YOUR SURGERY/PROCEDURE: If you get a cold, are not feeling well, or become , please call your surgeon s office as soon as possible. ? Eating and drinking before surgery: Adult Patients: No solid food or dairy products 8 hours prior to surgery check in time. Sips of plain water are allowed up to 2 hours prior to your procedure/surgery arrival time. A sip of water with approved morning medications is acceptable. Post-op Nausea and Vomiting: A risk of anesthesia is nausea and/or vomiting (PONV). Certain patients are at higher risk than others. Talk to your anesthesiologist about the plan to minimize this risk. In general, it is best to start with only ice chips or small sips of water, then progress to clear, non-alcoholic fluids. You do not have to eat if you do not feel like it; fluids are the most important in the first 24 hours after surgery. If you start to eat, try bananas, applesauce, plain toast, saltine crackers, or broth; avoid fried or fatty foods. Make sure to eat something about 15 minutes before taking any pain medications. Seek medical attention for any prolonged PONV and signs of dehydration. ON THE DAY OF SURGERY: ? DO bring your ID, insurance card, medication list, and a small amount of ballesteros for filling prescriptions and any medical co-pays. ? Do NOT wear any jewelry, (including rings, earrings, or mouth, tongue, or body piercing's). Metaljewelry could cause constriction, amputation, or voss. Loose or bulky things in your mouth can be unsafe and result in breathing problems. ? DO bring glasses if you wear contacts and other assistance items such as oxygen, inhaler, cane, walker, etc. ? Do NOT bring valuables, credit cards, or large amounts of ballesteros. ? Do NOT wear lotion or strong-smelling fragrance (perfume, cologne, cream or lotion). ? ARRANGE FOR A RIDE: If you are scheduled to go home the same day of surgery, a responsible adult MUST drive or accompany you home in a car, cab, shared ride service, or Metro-van. You will not be allowed to drive yourself home or travel home alone. Your surgery may be cancelled if you do not havea ride. A responsible adult must stay with you after surgery. Please call [facility] if you need transportation assistance or have concerns about going home [phone]. ? PLEASE BE ON TIME. A late arrival may result in the cancellation/ delay of your surgery. Thank you for choosing [facility]; it is our pleasure to care for you Elma Parra RN, RN Time Spent Performing this Telephone History: 30 min documented in this [id number] Note* Addendum Note - Charlene Nick PA-C - 05/30/2024 12:19 PM ESTAddended by: CHARLENE NICK on: 05/30/2024 12:19 PM Modules accepted: Orders [id number] Miscellaneous Notes* Addendum Note - Charlene Nick PA- C - 05/30/2024 12:19 PM ESTAddended by: CHARLENE NICK on: 05/30/2024 12:19 PM Modules accepted: Orders documented in this [id number] Hospital Discharge instructions* Discharge Instructions* Kenji Flores DO - 05/30/2024 5:21 AM EST Do not share your medication with anyone. Wound Instructions: Return to the ED if you notice fever, increased pain from the cut, increased bleeding, pus draining from the cut, or redness around the site of the cut. Procedures done during this visit: None * Attachments The following attachments cannot be sent through Care Everywhere. * Wound Care Discharge Instructions ([place]se) documented in this [id number] Consult note* Stevie Paiz MD - 05/30/2024 5:01 AM EST PLASTIC SURGERY HAND CONSULT H&P DOI: 05/30/24 CC: injury of right hand with table saw HPI: Tu Johnson is a 28 year old RHD male, smoker, otherwise healthy that comes with injury to the right hand after cutting stephanie at home with table saw. Patient states that the hand got caught with the saw at around 9 pm tonight and presented to OSH where decision was made to transfer to [facility]. Thepatient reports pain 10/10pm right small and middle fingers. Patient denies any previous surgeries on right hand. No past medical history on file. No past surgical history on file. Social History Socioeconomic History Marital status: Single No family history on file. No current facility-administered medications on file prior to encounter. No current outpatient medications on file prior to encounter. No Known Allergies Review Of Systems: Gen: denies fevers, chills Eyes: denies vision changes ENT: denies sore throat Resp: denies cough, weezing CV: denies chest pain Endocrine: denies fatigue GI: denies abdominal pain MSK: see above Skin: denies rash Neuro: denies numbness, tingling OBJECTIVE BP BP (!) 158/114 Pulse 100 Temp 97.7 F (36.5 C) (Oral) Resp 16 SpO2 93% Constitutional: Awake & alert. No distress. Head: Atraumatic. Cardiovascular: Radial pulses 2+. Pulmonary/Chest: No evidence of respiratory distress. Neurological: No focal deficits Psychiatric: Good eye contact. Normal affect Musculoskeletal: Atraumatic x 3. No edema. Distal pulses are equal and 2+. Extremities: Right hand Hand: Inspection: right hand with laceration of zone 2 of extensor tendons of right small finger, there are visible tendon fragments, and comminuted fracture of the MP, which is visisible on exam. RMF withpartial amputation of the DP, with visible articular facet of the distal MP. There is no remaining nail plate or nail bed, but the palmar/volar soft tissue is all present. Superficial abrasion of tipof the right ring finger with partial splitting of nail. Stability: All joints stable to dorsal, volar, radial and ulnar stresses, except for DIPJ of RMF which is absent. Strength: Strength 5/5 in bilateral median, ulnar, radial nerve distributions; all digits, Strength5/5 FDI, ABP, FPL, FDP IF, wrist ext, wrist flexion, except for extension of the RSF, which is absent. ROM: Full range of motion, all joints; bilateral hands, UE, except for PIPJ which is flexed at baseline with decreased extension. Vascular: Pulses 2+ radial, ulnar distributions; normal capillary refill; bilateral Neurologic: Normal sensation in median, ulnar, radial nerve distributions; bilaterally Imaging Pending upload from OSH Assessment/Plan: Tu is a 28 year old RHD male with multiple injuries to right hand after working at home with table saw. Including partial amputation of DP of RMF, laceration of the zone 2 extensor tendon of RSFwith accompanying MP fracture. Superficial abrasion of tip of RRF. - revision amputation of RMF at bedside - laceration repair of RSF injury - splinting - will require surgical exploration and repair of structures as outpatient - Follow up with Dr. Puente's office for surgery (schedulers messaged) - flex for discharge - Dispo: per ED Procedure notes PROCEDURE NOTE: LACERATION REPAIR Verbal consent was obtained from the patient to repair the laceration. The laceration was located on the dorsum of the RMF MP and was U schaped and 3cm long. Anesthesia was obtained by local infiltration with 1% Lidocaine with epinephrine. The laceration was cleaned with normal saline under pressure. The area was prepped and draped in the usual sterile fashion. The wound was explored and no foreign body or bleeding was encountered. The laceration was down to tendon and bone. The site was then repaired with 3-0 chromic sutures with good approximation. Xeroform was placed over the site. The patient tolerated the procedure well. PROCEDURE NOTE: Revision amputation DIPJ RMF Verbal consent was obtained from the patient to repair the laceration. The injury was located on the dorsal aspect of the dIPJ of the RMF with almost complete absence of DP bone, absent nail plate and nail bed.Anesthesia was obtained by local infiltration with 1% Lidocaine with epinephrine. The wound was cleaned with normal saline under pressure. The area was prepped and draped in the usual sterile fashion. The wound was explored and no foreign body or bleeding was encountered. Scissors and forceps were used to remove the small remaining bone fragments that remained from the DP. These were discarded. Atthis point the articular facet of the distal MP of the RSF was exposed, and this was scraped thoroughly to remove cartilage. The skin overlying the amputated site was then approximated and closed primarily with 3-0 chromic sutures and 5-0 vicryl rapide with good approximation. Xeroform was placed over the site. The patient tolerated the procedure well. At the end of the procedure, the patient was placed in ulnar gutter splint with bulky soft dressings to protect the injury sites. Stevie Paiz MD Plastic Surgery - PGY5 Pager: [phone] Cosigned by Cely Puente MD at 05/31/2024 8:30 AM EST [employer] Work Phone: [phone] Consult note* Stevie Paiz MD - 05/30/2024 5:01 AM EST PLASTIC SURGERY HAND CONSULT H&P DOI: 05/30/24 CC: injury of right hand with table saw HPI: Tu Johnson is a 28 year old RHD male, smoker, otherwise healthy that comes with injury to the right hand after cutting stephanie at home with table saw. Patient states that the hand got caught with the saw at around 9 pm tonight and presented to OSH where decision was made to transfer to [facility]. Thepatient reports pain 10/10pm right small and middle fingers. Patient denies any previous surgeries on right hand. No past medical history on file. No past surgical history on file. Social History Socioeconomic History Marital status: Single No family history on file. No current facility-administered medications on file prior to encounter. No current outpatient medications on file prior to encounter. No Known Allergies Review Of Systems: Gen: denies fevers, chills Eyes: denies vision changes ENT: denies sore throat Resp: denies cough, weezing CV: denies chest pain Endocrine: denies fatigue GI: denies abdominal pain MSK: see above Skin: denies rash Neuro: denies numbness, tingling OBJECTIVE BP BP (!) 158/114 Pulse 100 Temp 97.7 F (36.5 C) (Oral) Resp 16 SpO2 93% Constitutional: Awake & alert. No distress. Head: Atraumatic. Cardiovascular: Radial pulses 2+. Pulmonary/Chest: No evidence of respiratory distress. Neurological: No focal deficits Psychiatric: Good eye contact. Normal affect Musculoskeletal: Atraumatic x 3. No edema. Distal pulses are equal and 2+. Extremities: Right hand Hand: Inspection: right hand with laceration of zone 2 of extensor tendons of right small finger, there are visible tendon fragments, and comminuted fracture of the MP, which is visisible on exam. RMF withpartial amputation of the DP, with visible articular facet of the distal MP. There is no remaining nail plate or nail bed, but the palmar/volar soft tissue is all present. Superficial abrasion of tipof the right ring finger with partial splitting of nail. Stability: All joints stable to dorsal, volar, radial and ulnar stresses, except for DIPJ of RMF which is absent. Strength: Strength 5/5 in bilateral median, ulnar, radial nerve distributions; all digits, Strength5/5 FDI, ABP, FPL, FDP IF, wrist ext, wrist flexion, except for extension of the RSF, which is absent. ROM: Full range of motion, all joints; bilateral hands, UE, except for PIPJ which is flexed at baseline with decreased extension. Vascular: Pulses 2+ radial, ulnar distributions; normal capillary refill; bilateral Neurologic: Normal sensation in median, ulnar, radial nerve distributions; bilaterally Imaging Pending upload from OSH Assessment/Plan: Tu is a 28 year old RHD male with multiple injuries to right hand after working at home with table saw. Including partial amputation of DP of RMF, laceration of the zone 2 extensor tendon of RSFwith accompanying MP fracture. Superficial abrasion of tip of RRF. - revision amputation of RMF at bedside - laceration repair of RSF injury - splinting - will require surgical exploration and repair of structures as outpatient - Follow up with Dr. Puente's office for surgery (schedulers messaged) - keflex for discharge - Dispo: per ED Procedure notes PROCEDURE NOTE: LACERATION REPAIR Verbal consent was obtained from the patient to repair the laceration. The laceration was located on the dorsum of the RMF MP and was U schaped and 3cm long. Anesthesia was obtained by local infiltration with 1% Lidocaine with epinephrine. The laceration was cleaned with normal saline under pressure. The area was prepped and draped in the usual sterile fashion. The wound was explored and no foreign body or bleeding was encountered. The laceration was down to tendon and bone. The site was then repaired with 3-0 chromic sutures with good approximation. Xeroform was placed over the site. The patient tolerated the procedure well. PROCEDURE NOTE: Revision amputation DIPJ RMF Verbal consent was obtained from the patient to repair the laceration. The injury was located on the dorsal aspect of the dIPJ of the RMF with almost complete absence of DP bone, absent nail plate and nail bed.Anesthesia was obtained by local infiltration with 1% Lidocaine with epinephrine. The wound was cleaned with normal saline under pressure. The area was prepped and draped in the usual sterile fashion. The wound was explored and no foreign body or bleeding was encountered. Scissors and forceps were used to remove the small remaining bone fragments that remained from the DP. These were discarded. Atthis point the articular facet of the distal MP of the RSF was exposed, and this was scraped thoroughly to remove cartilage. The skin overlying the amputated site was then approximated and closed primarily with 3-0 chromic sutures and 5-0 vicryl rapide with good approximation. Xeroform was placed over the site. The patient tolerated the procedure well. At the end of the procedure, the patient was placed in ulnar gutter splint with bulky soft dressings to protect the injury sites. Stevie Paiz MD Plastic Surgery - PGY5 Pager: [phone] Cosigned by Cely Puente MD at 05/31/2024 8:30 AM EST documented in this [id number] Physician Emergency department Note* Leonardo Roberts MD - 05/30/2024 1:39 AM EST Images from the original note were not included. EMERGENCY DEPARTMENT - VISIT NOTE HISTORY OF PRESENT ILLNESS Chief Complaint Patient presents with Hand/finger symptoms Hand injury from a table saw, sent from OSH Automotive Service Assistant: not needed - patient preferred language is [place]se. The history is provided by the Patient. Tu Johnson is a 28 year old male right-hand dominant presenting to the ED for multiple lacerations to his right hand after table saw accident.. Patient endorses he was using a table saw when he accidentally cut his 3rd and 5th digits. Patient endorses some numbness and tingling to the digits as well as severe pain. He was having trouble moving the 5th digit. Patient was transferred here from [facility] for surgical consultation. On chart review, patient was complete laceration through the extensor tendon on the 5th digit with multiple comminuted fractures. X-ray shows more for comminuted fractures. Patient received Ancef, digital nerve block, morphine, Zofran, updated tetanus. PHYSICAL EXAM BP (!) 158/114 Pulse 100 Temp 97.7 F (36.5 C) (Oral) Resp 16 SpO2 93% Exam: Constitutional: Nursing triage notes reviewed and Vital signs reviewed Lung: Clear to auscultation and No wheezing Cardiac: Regular rate and rhythm and No murmurs Abdomen: Soft and Nondistended Back: No midline bony tenderness to thoracic/lumbar/sacral spines Ext: Right hand wrapped in dressing, dressing with moderate strike through, 2+ radial pulses on theaffected able to move 1st and 2nd digit, able to flex at the MCP of digits 3, 4, and 5. Neuro: Alert normally oriented and CN 3-12 intact Skin: No rash or lesion Psych: Normal affect MEDICAL DECISION MAKING and ED COURSE Nursing triage and assessment notes reviewed and incorporated. Independent Test Interpretation: Xrays personally reviewed and interpreted, . Final decision-makingpending radiology read. Evaluated by EM attending Leonardo Roberts Course: ED Course as of 05/30/24 1128 Sun May 30, 2024 0156 BP(!): 158/114 [MY] 0156 Temperature: 97.7 F (36.5 C) [MY] 0156 Heart Rate: 100 [MY] 0156 Respiratory Rate: 16 [MY] 0156 SpO2: 93 % [MY] 1121 XR HAND RIGHT 2 VIEW (For Post Reduction only) I reviewed the post splint x-ray 1. Overlying cast material obscures finer bony detail. Overall, alignment of the phalanx subluxations is improved as compared to powershare images. 2. Traumatic subluxation of the third distal interphalangeal joint with partial amputation of the third distal phalanx occurring just distal to the base. 3. Traumatic subluxation of the fifth proximal interphalangeal joint with fractures of the proximalphalangeal head and intermediate phalangeal base. A prominent osseous fragment is seen at the medial aspect of the joint. [MY] ED Course User Index [MY] Kenji Flores, Assessment & Plan: Tu Johnson is a 28-year-old male with a past medical history listed above who presents to the emergency department as a transfer from [facility] for hand surgery consult. On initial presentation patient was resting comfortably in his hemodynamically stable and afebrile. Outside images were reviewed which is consistent with traumatic subluxation of the third distal interphalangeal joint with partial amputation of the third distal phalanx occurring just distal to the base and traumatic subluxation of the fifth proximal interphalangeal joint with fractures of the proximal phalangeal head and intermediate phalangeal base. Patient received updated tetanus, IV antibiotics and pain control prior to evaluation at [facility]. Hand surgery was consulted, evaluated the patient at bedside, and repaired the laceration as well as splinted the injury at bedside. Recommended followup with Plastic surgery Clinic as well as antibiotics. Patient was given short course of oxycodone for pain. Patient was pain was well-controlled in the emergency department. Workup and findings werediscussed with the patient and all questions were answered. IMPRESSION AND DISPOSITION Clinical Impression Diagnosis Comment Traumatic amputation of finger, initial encounter [S68.119A] Laceration of finger of right hand without foreign body with damage to nail, unspecified finger, initial encounter [S61.319A] Right hand pain [M79.641] Disposition: Home The patient has received a medical screening examination and within reasonable clinical confidence an emergency medical condition has not been identified. Counseling: Spoke with the patient and discussed today s findings, in addition to providing specific details for the plan of care and expected course. They were given the opportunity to ask questions. Discussed return precautions and importance of follow-up. Advised to follow-up with plastic surgery. Advised to return to the ED for changing or worsening symptoms, new symptoms, complaint specific precautions, and precautions listed on the discharge paperwork. Educated on the common potential side effects of medications prescribed. Kenji Flores DO PGY-2 Emergency Medicine ATTENDING NOTE I saw and evaluated the patient. I personally obtained the ken and critical portions of the historyand physical exam. I reviewed the resident's documentation and discussed the patient with the resident. I agree with the resident's medical decision making as documented in the resident's note. I did not supervise the laceration repair performed by the plastics surgery team. Leonardo Roberts MD Attending Physician Department of Emergency Medicine Pager [phone] [facility] Work Phone: [phone] Emergency department Note* Leonardo Roberts MD - 05/30/2024 1:39 AM EST Images from the original note were not included. EMERGENCY DEPARTMENT - VISIT NOTE HISTORY OF PRESENT ILLNESS Chief Complaint Patient presents with Hand/finger symptoms Hand injury from a table saw, sent from [facility] Automotive Service Assistant: not needed - patient preferred language is [place]se. The history is provided by the Patient. Tu Johnson is a 28 year old male right-hand dominant presenting to the ED for multiple lacerations to his right hand after table saw accident.. Patient endorses he was using a table saw when he accidentally cut his 3rd and 5th digits. Patient endorses some numbness and tingling to the digits as well as severe pain. He was having trouble moving the 5th digit. Patient was transferred here from [facility] for surgical consultation. On chart review, patient was complete laceration through the extensor tendon on the 5th digit with multiple comminuted fractures. X-ray shows more for comminuted fractures. Patient received Ancef, digital nerve block, morphine, Zofran, updated tetanus. PHYSICAL EXAM BP (!) 158/114 Pulse 100 Temp 97.7 F (36.5 C) (Oral) Resp 16 SpO2 93% Exam: Constitutional: Nursing triage notes reviewed and Vital signs reviewed Lung: Clear to auscultation and No wheezing Cardiac: Regular rate and rhythm and No murmurs Abdomen: Soft and Nondistended Back: No midline bony tenderness to thoracic/lumbar/sacral spines Ext: Right hand wrapped in dressing, dressing with moderate strike through, 2+ radial pulses on theaffected able to move 1st and 2nd digit, able to flex at the MCP of digits 3, 4, and 5. Neuro: Alert normally oriented and CN 3-12 intact Skin: No rash or lesion Psych: Normal affect MEDICAL DECISION MAKING and ED COURSE Nursing triage and assessment notes reviewed and incorporated. Independent Test Interpretation: Xrays personally reviewed and interpreted, . Final decision-makingpending radiology read. Evaluated by EM attending Leonardo Roberts Course: ED Course as of 05/30/24 1128 Sun May 30, 2024 0156 BP(!): 158/114 [MY] 0156 Temperature: 97.7 F (36.5 C) [MY] 0156 Heart Rate: 100 [MY] 0156 Respiratory Rate: 16 [MY] 0156 SpO2: 93 % [MY] 1121 XR HAND RIGHT 2 VIEW (For Post Reduction only) I reviewed the post splint x-ray 1. Overlying cast material obscures finer bony detail. Overall, alignment of the phalanx subluxations is improved as compared to powershare images. 2. Traumatic subluxation of the third distal interphalangeal joint with partial amputation of the third distal phalanx occurring just distal to the base. 3. Traumatic subluxation of the fifth proximal interphalangeal joint with fractures of the proximalphalangeal head and intermediate phalangeal base. A prominent osseous fragment is seen at the medial aspect of the joint. [MY] ED Course User Index [MY] Kenji Flores, Assessment & Plan: Tu Johnson is a 28-year-old male with a past medical history listed above who presents to the emergency department as a transfer from [facility] for hand surgery consult. On initial presentation patient was resting comfortably in his hemodynamically stable and afebrile. Outside images were reviewed which is consistent with traumatic subluxation of the third distal interphalangeal joint with partial amputation of the third distal phalanx occurring just distal to the base and traumatic subluxation of the fifth proximal interphalangeal joint with fractures of the proximal phalangeal head and intermediate phalangeal base. Patient received updated tetanus, IV antibiotics and pain control prior to evaluation at [facility]. Hand surgery was consulted, evaluated the patient at bedside, and repaired the laceration as well as splinted the injury at bedside. Recommended followup with Plastic surgery Clinic as well as antibiotics. Patient was given short course of oxycodone for pain. Patient was pain was well-controlled in the emergency department. Workup and findings werediscussed with the patient and all questions were answered. IMPRESSION AND DISPOSITION Clinical Impression Diagnosis Comment Traumatic amputation of finger, initial encounter [S68.119A] Laceration of finger of right hand without foreign body with damage to nail, unspecified finger, initial encounter [S61.319A] Right hand pain [M79.641] Disposition: Home The patient has received a medical screening examination and within reasonable clinical confidence an emergency medical condition has not been identified. Counseling: Spoke with the patient and discussed today s findings, in addition to providing specific details for the plan of care and expected course. They were given the opportunity to ask questions. Discussed return precautions and importance of follow-up. Advised to follow-up with plastic surgery. Advised to return to the ED for changing or worsening symptoms, new symptoms, complaint specific precautions, and precautions listed on the discharge paperwork. Educated on the common potential side effects of medications prescribed. Kenji Flores DO PGY-2 Emergency Medicine ATTENDING NOTE I saw and evaluated the patient. I personally obtained the ken and critical portions of the historyand physical exam. I reviewed the resident's documentation and discussed the patient with the resident. I agree with the resident's medical decision making as documented in the resident's note. I did not supervise the laceration repair performed by the plastics surgery team. Leonardo Roberts MD Attending Physician Department of Emergency Medicine Pager [phone] documented in this [id number] Evaluation + Plan note Extracted from: Title:ED Note Author:Fátimasameer DO Rileyebony Ball Date :05/29/24 Open displaced fracture of m iddle phalanx of finger of right hand (S62.629B: Displaced fracture of middle phalanx of unspecified finger, initial encounter for open fracture) Orders: cefazolin + Sodium Chloride 0.9% intravenous solution 50 mL, 2 gram = 1 EA, IV Piggyback, Once, Stop date 05/29/24 21:41:00 EST, STAT, Start date 05/29/24 21:41:00 EST, 100 mL/hr, Infuse over 30 minute(s), 05/29/24 21:41:00 EST morphine, 4 mg = 1 mL, Injection, IV Push, Once, Stop date 05/29/24 21:41:00 EST, STAT, Start date 05/29/24 21:41:00 EST, 05/29/24 21:41:00 EST ondansetron, 4 mg = 2 mL, Injection, IV Push, Once, Stop date 05/29/24 21:41:00 EST, STAT, Start date 05/29/24 21:41:00 EST, 05/29/24 21:41:00 EST tetanus/diphtheria/pertussis, acel (Tdap), 0.5 mL, Injection, Intramuscular-Immunization, Once, Stop date 05/29/24 21:41:00 EST, STAT, Start date 05/29/24 21:41:00 EST Transfer Patient XR Hand 3+ Views Right [facility] 12-10-2023 Evaluation note* Encounter Date Diagnosis Assessment Notes Treatment Notes Treatment Clinical Notes Mar, Acute gout of right ankle, unspecified cause (ICD-10 - M10.9) Gout home care material was printed, Low-purine diet material was printed Drink plenty fluids, get plenty of rest. Try to follow a low purine diet. Take the prednisone as prescribed until gone. Follow-up with your family physician if no improvement in 2 to 3 days. [facility] Other 02-26-2023 Hospital Discharge instructions Patient Education 06/22/2022 23:52:48 Laceration Care, Adult, Baic-iz-Jfub Laceration Care, Adult A laceration is a cut that may go through all layers of the skin. The cut may also go into the tissue that is right under the skin. Some cuts heal on their own. Others need to be closed with stitches(sutures), nidhi, skin adhesive strips, or skin glue. Taking care of your injury lowers your riskof infection, helps your injury to heal better, and may prevent scarring. Supplies needed: Soap. Water. Hand unattended ground sensor specialist. Bandage (dressing). Antibiotic ointment. Clean towel. How to take care of your cut Wash your hands with soap and water before touching your wound or changing your bandage. If soap and water are not available, use hand unattended ground sensor specialist. If your doctor used stitches or nidhi: Keep the wound clean and dry. If you were given a bandage, change it at least once a day as told by your doctor. You should also change it if it gets wet or dirty. Keep the wound completely dry for the first 24 hours, or as told by your doctor. After that, you may take a shower or a bath. Do not get the wound soaked in water until after the stitches or nidhi have been removed. Clean the wound once a day, or as told by your doctor: ?Wash the wound with soap and water. ?Rinse the wound with water to remove all soap. ?Pat the wound dry with a clean towel. Do not rub the wound. After you clean the wound, put a thin layer of antibiotic ointment on it as told by your doctor. This ointment: ?Helps to prevent infection. ?Keeps the bandage from sticking to the wound. Have your stitches or nidhi removed as told by your doctor. If your doctor used skin adhesive strips: Keep the wound clean and dry. If you were given a bandage, you should change it at least once a day as told by your doctor. You should also change it if it gets wet or dirty. Do not get the skin adhesive strips wet. You can take a shower or a bath, but keep the wound dry. If the wound gets wet, pat it dry with a clean towel. Do not rub the wound. Skin adhesive strips fall off on their own. You can trim the strips as the wound heals. Do not remove any strips that are still stuck to the wound. They will fall off after a while. If your doctor used skin glue: Try to keep your wound dry, but you may briefly wet it in the shower or bath. Do not soak the woundin water, such as by swimming. After you take a shower or a bath, gently pat the wound dry with a clean towel. Do not rub the wound. Do not do any activities that will make you really sweaty until the skin glue has fallen off on itsown. Do not apply liquid, cream, or ointment medicine to your wound while the skin glue is still on. If you were given a bandage, you should change it at least once a day or as told by your doctor. You should also change it if it gets dirty or wet. If a bandage is placed over the wound, do not let the tape touch the skin glue. Do not pick at the glue. The skin glue usually stays on for 5 10 days. Then, it falls off the skin. General instructions Take yzkd-fst-xiapfer and prescription medicines only as told by your doctor. If you were given antibiotic medicine or ointment, take or apply it as told by your doctor. Do not stop using it even if your condition improves. Do not scratch or pick at the wound. Check your wound every day for signs of infection. Watch for: ?Redness, swelling, or pain. ?Fluid, blood, or pus. Raise (elevate) the injured area above the level of your heart while you are sitting or lying down. If directed, put ice on the affected area: ?Put ice in a plastic bag. ?Place a towel between your skin and the bag. ?Leave the ice on for 20 minutes, 2 3 times a day. Prevent scarring by covering your wound with sunscreen of at least 30 SPF whenever you are outside after your wound has healed. Keep all follow-up visits as told by your doctor. This is important. Get help if: You got a tetanus shot and you have any of these problems at the injection site: ?Swelling. ?Very bad pain. ?Redness. ?Bleeding. You have a fever. A wound that was closed breaks open. You notice a bad smell coming from your wound or your bandage. You notice something coming out of the wound, such as wood or glass. Medicine does not relieve your pain. You have more redness, swelling, or pain at the site of your wound. You have fluid, blood, or pus coming from your wound. You notice a change in the color of your skin near your wound. You need to change the bandage often because fluid, blood, or pus is coming from the wound. You start to have a new rash. You start to have numbness around the wound. Get help right away if: You have very bad swelling around the wound. Your pain suddenly gets worse and is very bad. You notice painful lumps near the wound or anywhere on your body. You have a red streak going away from your wound. The wound is on your hand or foot, and: ?You cannot move a finger or toe. ?Your fingers or toes look pale or bluish. Summary A laceration is a cut that may go through all layers of the skin. The cut may also go into the tissue right under the skin. Some cuts heal on their own. Others need to be closed with stitches, nidhi, skin adhesive strips,or skin glue. Follow your doctor's instructions for caring for your cut. Proper care of a cut lowers the risk of infection, helps the cut heal better, and prevents scarring. This information is not intended to replace advice given to you by your health care provider. Make sure you discuss any questions you have with your health care provider. Document Released: 09/30/2008 Document Revised: 06/12/2018 Document Reviewed: 05/04/2018 [employer] Patient Education 2020 [employer] Follow Up Care 06/22/2022 21:21:07 With:Skip ARANDA, PRICILA Asencio Address: [address] [place], [place] [id number] When:2 weeks Comments:for suture removal [facility]02-25-2023 Evaluation + Plan noteExtracted from: Title:ED Note Author:Tori CAT, Charlene Medellin ate:06/22/22 1. Laceration of left index finger w/o foreign body w/o damage to nail (S61.211A: Laceration without foreign body of left index finger without damage to nail, initial encounter) Ordered: cephalexin, 500 mg = 1 cap(s), Oral, TID, X 5 day(s), # 15 cap(s), Refills(s) 0, Pharmacy: [facility]/pharmacy #[id number], 182.9, cm, 06/22/22 21:29:00 EST, Height/Length Dosing, 103.4, kg, 06/22/22 21:29:00 EST, Weight Dosing 2. Injury due to knife (W26.0XXA: Contact with knife, initial encounter) Ordered: cephalexin, 500 mg = 1 cap(s), Oral, TID, X 5 day(s), # 15 cap(s), Refills(s) 0, Pharmacy: [facility]/pharmacy #[id number], 182.9, cm, 06/22/22 21:29:00 EST, Height/Length Dosing, 103.4, kg, 06/22/22 21:29:00 EST, Weight Dosing Orders: bacitracin topical, 1 liza, Ointment, Topical, Once, Stop date 06/22/22 23:51:00 EST, STAT, Start date 06/22/22 23:51:00 EST Future Appointments Appointment Date:06/24/2022 03:40:00 PM Scheduled Provider:NAHOMI CORRALES CNP Location:[facility] Appointment Type: Open [facility] Diagnosis Hand laceration involving tendon, right, subsequent encounter- Primary Traumatic amputation of finger, initial encounter Acute pain due to injury Acute pain due to trauma Acute pain due to injury- Primary Acute pain due to trauma [facility] Diagnosis Onset Date Resolution Status Admit Date BMI 34.0-34.9,adult acute August 262024 9:37am High blood pressure acute August 262024 9:37am Hx of gout acute September 06, 2024 9:37am Obese acute September 06, 2024 9:37am [facility] Work Phone: Evaluation note* Diagnosis Traumatic amputation of finger, initial encounter- Primary Laceration of finger of right hand without foreign body with damage to nail, unspecified finger, initial encounter Right hand pain Pain in limb Hand laceration involving tendon, right, subsequent encounter- Primary Traumatic amputation of finger, initial encounter Acute pain due to injury Acute pain due to trauma [facility]* Diagnosis Pre-op evaluation- Primary Preoperative examination, unspecified Hand laceration involving tendon, right, subsequent encounter- Primary Traumatic amputation of finger, initial encounter Acute pain due to injury Acute pain due to trauma [facility]* Diagnosis Hand laceration involving tendon, right, subsequent encounter- Primary Traumatic amputation of finger, initial encounter Acute pain due to injury Acute pain due to trauma Hand laceration involving tendon, right, subsequent encounter [S61.901D, S66.1D]- Primary [facility]* Diagnosis Hand laceration involving tendon, right, subsequent encounter- Primary Traumatic amputation of finger, initial encounter Acute pain due to injury Acute pain due to trauma [facility]* Diagnosis Hand laceration involving tendon, right, subsequent encounter- Primary Hand laceration involving tendon, right, subsequent encounter- Primary Traumatic amputation of finger, initial encounter Acute pain due to injury Acute pain due to trauma [facility]* Diagnosis Hand laceration involving tendon, right, subsequent encounter- Primary Postoperative pain Other acute postoperative pain Open displaced fracture of middle phalanx of left index finger with routine healing, subsequent encounter Hand laceration involving tendon, right, subsequent encounter- Primary Traumatic amputation of finger, initial encounter Acute pain due to injury Acute pain due to trauma [facility]* Diagnosis Hand laceration involving tendon, right, subsequent encounter- Primary Traumatic amputation of finger, initial encounter Acute pain due to injury Acute pain due to trauma Postoperative pain- Primary Other acute postoperative pain [facility] - Reported* Type Description Date Medical History high blood pressure [facility] Other Hospital course Narrative No data available for this section [facility] No data available for this section [facility] Konstantin Progress note No data available for this section [facility] N[facility]* Auth/Cert (Routine) Specialty Diagnoses / Procedures Referred By Cammie t Referred To Contact General Surgery Diagnoses Hand laceration involving tendon, right, subsequent encounter Hand laceration involving tendon, right, subsequent encounter [P86.742D, O65.167X] Procedures REPAIR, EXTENSOR TENDON, FINGER, PRIMARY/SECONDARY; W/O FREE GRAFT, EACH TENDON REPAIR, EXTENSOR TENDON, FINGER, PRIMARY/SECONDARY; W/FREE GRAFT, EACH TENDON OPEN TRT, PHALANGEAL SHAFT FRCT, PROXIMAL/MIDDLE PHALANX, FINGER/THUMB, W/WO FIXATION, EA REPAIR, TENDON, EXTENSOR REDUCTION, OPEN, HAND [place] [address] Phone: tel: fax: [employer] [place] [address] Phone: tel: Referral ID Status Reason Start Date Expiration Date Visits Re quested Visits Authorized [id number] 3 3 [facility] Summary Purpose Family History Relationship Condition Age at Onset Recorded Date/T steffi father Hypertension Unknown Advance Directives Advance Directive Response Recorded Date/ Time Advance Directives No August 28, 2020 4:01pm Chief Complaint and Reason for Visit Chief Complaint Admit Date Est care/ wte loss September 06, 2024 9:37a m Reason for Visit Admit Date BMI 34.0-34.9,adult September 06, 2024 9:37a m High blood pressure September 06, 2024 9:37a m Hx of gout September 06, 2024 9:37a m Obese September 06, 2024 9:37a m Chief Complaint Admit Date Est care/ wte loss September 06, 2024 9:37a m 4 week f/u October 05, 2024 10:1 3am Reason for Visit Admit Date BMI 34.0-34.9,adult September 06, 2024 9:37a m Gout September 06, 2024 9:37a m Hypertension September 06, 2024 9:37a m Obese September 06, 2024 9:37a m BMI 34.0-34.9,adult October 05, 2024 10:1 3am Obese October 05, 2024 10:1 3am Additional Source Comments (unrecognized sect ion and content) No Status Records FoundNo Status Records FoundNo Status Records FoundNo Status Records Found INFORMATION SOURCE (unrecogn ized section and content) DATE CREATED AUTHOR 10/21/2017 [facility] DATE CREATED AUTHOR AUTHOR'S ORGANIZ ATION 05/14/2021 [facility] DATE CREATED AUTHOR AUTHOR'S ORGANIZ ATION [facility]/30/[address] [facility] DATE CREATED AUTHOR AUTHOR'S ORGANIZ ATION 09/08/[address] 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 [address] Occupational Therapist Occupational Therapy 06/26/24 Team Status: Active Member Role Status Dates Allison Leo APRN DELIVERY MOTORCYCLE DRIVER-C Primary Care Provider Active Team Status: Inactive Member Role Status Dates Allison Leo APRN NP-Cielo Primary Care Provider, Attending Provider Active Start: September 06, 2024 End: September 06, 2024 Team Status: Inactive Member Role Status Dates ALEC Lopez Primary Care Provider, Attending Provider Active Start: October 05, 2024 End: October 05, 2024 REASON FOR VISIT (unrecogniz ed section and content) Reason Onset Date Comments Refill 08/01/2024 Reason Comments Hand/finger symptoms Hand injury from a table saw, sent from OSH Reason Comments OT Evaluation Clinic 1 Specialty Diagnoses / Procedures Referred By Cammie t Referred To Contact General Surgery Diagnoses Hand laceration involving tendon, right, subsequent encounter Hand laceration involving tendon, right, subsequent encounter [P47.083D, K38.825N] Procedures REPAIR, EXTENSOR TENDON, FINGER, PRIMARY/SECONDARY; W/O FREE GRAFT, EACH TENDON REPAIR, EXTENSOR TENDON, FINGER, PRIMARY/SECONDARY; W/FREE GRAFT, EACH TENDON OPEN TRT, PHALANGEAL SHAFT FRCT, PROXIMAL/MIDDLE PHALANX, FINGER/THUMB, W/WO FIXATION, EA REPAIR, TENDON, EXTENSOR REDUCTION, OPEN, HAND Cely Puente MD [address] [facility] [place] [address] Phone: tel: fax: [employer] [address] [place] [address] Phone: tel: Referral ID Status Reason Start Date Expiration Date Visits Re quested Visits Authorized [id number] 3 Reason Comments Monitoring/follow-up Cut with ihsan saw 3 days ago. 5th dig et barely on and tip of middle finger gone. Right hand Reason Onset Date Comments Refill 06/11/2024 Goals (unrecognized section and content) Goals may be documented in a n alternate section Scheduled Active and Recently Administ ered Medications (unrecognized section and content) Medication Order 05/28/2024 05/29/2024 05/30/2024 ceFAZolin Sodium (ANCEF) 2,000 mg in sterile water for injection 10 mL IV push 2,000 mg, Intravenous, EVERY 6 HOURS ANTIBIOTIC, First dose on 05/30/24 at 0400, Until Discontinued 0435 (IV New Bag - P rovider: Sanaz Gonzalez RN)0438 (IV Stop - Provider: Sanaz Gonzalez RN) HYDROmorphone (DILAUDID) 1 mg/mL injection (COMPLETED) 1 mg, Intravenous Push, ONCE, 1 dose, On 05/30/24 at 0221 0202 (Given - Provid er: Sanaz Gonzalez RN) HYDROmorphone (DILAUDID) 1 mg/mL injection (COMPLETED) 1 mg, Intravenous Push, STAT, 1 dose, On 05/30/24 at 0245 0258 (Given - Provid er: Sanaz Gonzalez RN) ketorolac (TORADOL) 15 MG/ML injection (COMPLETED) 15 mg, Intravenous Push, ONCE, 1 dose, On 05/30/24 at 0468 0505 (Given - Provid er: Sanaz Gonzalez RN) lidocaine-EPINEPHrine (XYLOCAINE) 1 %-[id number] injection SOLN (COMPLETED) 20 mL, Injection, ONCE, 1 dose, On Fri05/30/24 at 0239 0239 (Given by Robert cartern - Provider: Sanaz Gonzalez RN) oxyCODONE immediate release tablet (COMPLETED) 5 mg, Oral, STAT, 1 dose, On Fri05/30/24 at 0527 0505 (Given - Provid er: Sanaz Gonzalez RN) Scheduled Medication Order 06/07/2024 06/08/2024 06/09/2024 ceFAZolin Sodium (ANCEF) 2,000 mg in sterile water for injection 10 mL IV push (COMPLETED) 2,000 mg, Intravenous, ONCE, 1 dose, On Fri06/09/24 at 1130 1426 (IV New Bag - P rovider: LIZETTE Pereira) Continuous Medication Order 06/07/2024 06/08/2024 06/09/2024 lactated ringers iv infusion Intravenous, at 75 mL/hr, CONTINUOUS, Starting on Fri06/09/24 at 1130, Until Fri06/09/24 at 1924 1406 (IV New Bag - P rovider: LIZETTE Pereira)1529 (IV Stop - Provider: Mary Chan APRN-[facility]) PRN Medication Order 06/07/2024 06/08/2024 06/09/2024 acetaminophen (TYLENOL) tablet 1,000 mg, Oral, PACU ONCE PRN, Starting on Fri06/09/24 at 1606, Until Fri06/09/24 at 1924, Severe Pain (pain score 7,8,9,10), PACU Now 1609 (Given - Provid er: Carolyn Ghosh RN) fentaNYL (SUBLIMAZE) 50 MCG/ML injection 12.5 mcg, Intravenous Push, EVERY 5 MIN PRN, 5 doses, Starting on Fri06/09/24 at 1259, Until Fri06/09/24 at 1924, Moderate Pain (pain score 4,5,6), PACU Now HYDROmorphone (DILAUDID) 1 mg/mL injection 0.5 mg, Intravenous Push, PACU EVERY 15 MIN PRN X 4 DOSES, 4 doses, Starting on Fri06/09/24 at 1259, Until Fri06/09/24 at 192, Severe Pain (pain score 7,8,9,10), PACU Now naloxone (NARCAN) 0.4 MG/ML injection 0.4 mg, Intravenous Push, PRN, Starting on Fri06/09/24 at 1259, Until Fri06/09/24 at 1924, Respiratory Rate Less Than 8 for adults and less than 12 for Peds or for suspected overdose, PACU Now oxyCODONE immediate release tablet 5 mg, Oral, PRN, 1 dose, Starting on Fri06/09/24 at 1259, Until Fri06/09/24 at 192, Moderate Pain (pain score 4,5,6), PACU Now prochlorperazine (COMPAZINE) tablet 5 mg, Oral, EVERY 6 HOURS PRN, Starting on Fri06/09/24 at 1259, Until Fri06/09/24 at 192, Nausea, PACU Now sodium chloride 0.9 % injection 3 mL, Intravenous Push, PRN, Starting on Fri06/09/24 at 1259, Until Fri06/09/24 at 192, For medication administration and blood draw, PACU Now traMADol (ULTRAM) tablet 50 mg, Oral, PACU ONCE PRN, Starting on Fri06/09/24 at 1605, Until Fri06/09/24 at 192, Severe Pain (pain score 7,8,9,10), PACU Now 1609 (Given - Provid er: Carolyn Ghosh RN) FOR RECORDS PERTAINING TO PATIENTS WHO ARE OR HAVE BEEN ENROLLED IN A CHEMICAL DEPENDENCY/SUBSTANCEABUSE PROGRAM, SOME INFORMATION MAY BE OMITTED. This clinical summary was aggregated from multiple sources. Caution should be exercised in using it in the provision of clinical care. This summary normalizes information from multiple sources, and as a consequence, information in this document may materially change the coding, format and clinical context of patient data. In addition, data may be omitted in some cases. CLINICAL DECISIONS SHOULD BE BASED ON THE PRIMARY CLINICAL RECORDS. [facility]. provides no warranty or guarantee of the accuracy or completeness of information in this document.
[2024-10-22 20:09] VITALS: BP 90/49; PULSE 96; TEMP 36.6; O2SAT 96; BMI 35.9
--- NOTE | 2024-10-22 20:20 | ECG_ITS ---
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 Measurements Intervals [place] Rate: 69 P: 69 SC: 146 QRS: 90 QRSD: 108 T: 35 QT: 404 QTc: 424 Interpretive Statements 1100 Sinus rhythm 9110 normal ECG Compared to ECG 08/03/2024 04:09:26 No significant changes Electronically Signed On 10-23-2024 12:05:45 EDT by YADIRA TORO M.D.
[2024-10-22] MEDS: 0.9 % SODIUM CHLORIDE 1,000 ML 1000 ML IV ×2 (20:37→21:40)
[2024-10-22] MEDS: ONDANSETRON PF 4 MG/2 ML VIAL IV (20:38)
[2024-10-22 20:47] LABS: Hematocrit 55.3 % (42.0-54.0); Hemoglobin 19.9 g/dL (14.0-18.0); Mean Corpuscular Hemoglobin 32.4 pg (25.9-34.0); Mean Corpuscular Volume 89.9 fL (80.0-94.0); Mean Platelet Volume 11.4 fL (9.5-13.5); Platelet Count 211 10^3/uL (150-450); Red Blood Count 6.15 10^6/uL (4.70-6.10); Red Cell Distribution Width 13.4 % (11.0-15.0); White Blood Count 18.8 10^3/uL (4.0-11.0)
[2024-10-22 20:48] VITALS: PULSE 82
[2024-10-22 21:06] LABS: Eosinophils Absolute Manual 0.18 10^3/uL (0.00-0.70); Lactate/Lactic Acid 1.7 mmol/L (0.4-2.0); Lymphocytes Absolute Manual 3.57 10^3/uL (1.20-3.80); Monocytes Absolute Manual 2.63 10^3/uL (0.30-0.80)
[2024-10-22 21:14] LABS: Alanine Aminotransferase 63 U/L (16-63); Albumin Globulin Ratio 0.9; Albumin Level 3.6 g/dL (3.4-5.0); Alkaline Phosphatase 112 U/L (46-116); Aspartate Amino Transferase 56 U/L (15-37); Bilirubin Total 0.7 mg/dL (0.2-1.0); Calcium 9.4 mg/dL (8.5-10.1); Carbon Dioxide 24.3 mmol/L (21.0-32.0); Chloride 91 mmol/L (98-107); Creatine Kinase 89 U/L (39-308); Creatine Kinase MB 1.84 ng/mL (<=3.60); Estimated GFR (African America 10 (>=60 mL/min/1.73m^2); Estimated GFR (Non-African Ame 8 (>=60 mL/min/1.73m^2); Globulin 4.1 g/dL; Glucose 138 mg/dL (74-106); Potassium 3.3 mmol/L (3.5-5.1); Sodium 131 mmol/L (136-145); Total Protein 7.7 g/dL (6.4-8.2)
--- NOTE | 2024-10-22 21:26 | ED.GENADUL1 ---
Documented by User: Nicci Severino 10/22/24 22:03 HPI HPI - General Adult General Chief complaint: Weakness Stated complaint: HEAT EXHAUSTION Time Seen by Provider: 10/22/24 20:08 Source: patient Mode of arrival: walk-in Limitations: no limitations History of Present Illness HPI narrative: 29-year-old male presents here with a chief complaint of heat exhaustion . 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 He states he got home from work yesterday and felt nauseous cramping and did not feel well. He states he has been drinking Pedialyte at home and eating. He has not had any relief of his symptoms. He states he has not urinated today. Here to the emergency room. He denies a history of heat exhaustion in the past. past medical history includes gout and hypertension Related Data Home Medications ?Medication ?Instructions ?Recorded ?Confirmed allopurinol 100 mg tablet 100 mg PO DAILY 08/03/24 10/22/24 gabapentin 300 mg capsule 300 mg PO TID 08/03/24 10/22/24 ibuprofen 800 mg tablet 800 mg PO Q8H PRN pain 08/03/24 10/22/24 Held on 08/04/24. Instructions: Resume on 08/11/24. lisinopril 30 mg tablet 30 mg PO DAILY 08/03/24 10/22/24 Allergies Allergy/AdvReac Type Severity Reaction Status Date / Time No Known Drug Allergies Allergy Verified 10/22/24 20:08 Opioid HPI Opioid Management Most Recent Opioid Data: Last Pain Scale 4 Today, 20:09 Last ORT Total Score 1 08/03/24, 08:41 Last ORT Risk Category Low Risk 08/03/24, 08:41 Ur Phencyclidine Scrn, (NEGATIVE) Negative 08/03/24, 07:11 Review of Systems ROS Status of ROS 10 or more systems reviewed and unremarkable except as noted in history and below [facility] Medical History (Updated 10/22/24 @ 22:00 by Nicci Severino) Gout ?M10.9 - Gout, unspecified (ICD-10) Finger amputation, 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 General: The patient appears ill, fatigued. Patient is resting comfortably on cart. Skin: Warm, dry, no pallor noted. sunburned. Head: Normocephalic, atraumatic Eye: Normal conjunctiva, no drainage, EOMI. PERRL Ears, Nose, Mouth, and Throat: oral mucosa is moist. Nares patent. Mouth without vesicles. Ear canals patent. Tm's without Erythema Cardiovascular: Regular Rate and Rhythm Respiratory: Patient is in no distress, no accessory muscle use, lungs are clear to auscultation, no wheezing, rales or rhonchi Back: non-tender, no CVA tenderness bilaterally to percussion. GI: Normal bowel sounds, no tenderness to palpation, no masses appreciated. No rebound, guarding, or rigidity noted. Musculoskeletal: The patient has no evidence of calf tenderness, no pitting edema, symmetrical pulses noted bilaterally Neurological: A&O x4, normal speech Psychiatric: Cooperative Constitutional Vital Signs, click to edit/add: Last Vital Signs Temp 97.9 F 10/22/24 20:09 Pulse 96 H 10/22/24 20:09 Resp 20 10/22/24 20:09 BP 90/49 10/22/24 20:09 Pulse Ox 96 10/22/24 20:09 O2 Del Method Room Air 10/22/24 20:09 Course Vital Signs Vital signs: Vital Signs Temperature 97.9 F 10/22/24 20:09 Pulse Rate 96 H 10/22/24 20:09 Respiratory Rate 20 10/22/24 20:09 Blood Pressure 90/49 10/22/24 20:09 Pulse Oximetry 96 10/22/24 20:09 Oxygen Delivery Method Room Air 10/22/24 20:09 Temperature 97.9 F 10/22/24 20:09 Pulse Rate 96 H 10/22/24 20:09 Respiratory Rate 20 10/22/24 20:09 Blood Pressure 90/49 10/22/24 20:09 Pulse Oximetry 96 10/22/24 20:09 Oxygen Delivery Method Room Air 10/22/24 20:09 Medical Decision Making MDM Narrative Medical decision making narrative: 29-year-old male presents here with a chief complaint of heat exhaustion . 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 He states he got home from work yesterday and felt nauseous cramping and did not feel well. He states he has been drinking Pedialyte at home and eating. He has not had any relief of his symptoms. He states he has not urinated today. Here to the emergency room. He denies a history of heat exhaustion in the past. past medical history includes gout and hypertension Upon arrival to the emergency room, patient had an IV established. Blood work was obtained. Patient was given a liter of fluids. Lab work returned and showed he had a elevated white blood cell of 8.8, BUN of 31 and peak creatinine of 7.73. Previous lab work was revealed and shows patient has not had a history of elevated creatinine in the past. He does not take medications and clued a Adipex for 6 with allopurinol and gabapentin. Patient also takes lisinopril. Patient was given 2 L of IV fluids here in the emergency room and then an order for 250 cc/h course also started. Hospitalist here at the [facility] was called and stated she would prefer the patient be transferred to [facility]. Dr. Jack spoke with Dr. Hui the admission of this patient. Patient was made aware of his results and agrees with plan of care. He is stable at this time vital signs are stable. EKG was reviewed which showed no acute abnormalities. transition of care to Dr. Jack at 2200 Differential Diagnosis Differential Diagnosis: dehydration, heat exahaustion Medical Records Medical records reviewed: Yes I reviewed the patient's medical records Lab Data Lab results reviewed: Yes I reviewed the patient's lab results Labs: Lab Results 10/22/24 Range/Units 20:30 WBC 18.8 H (4.0-11.0) 10^3/uL RBC 6.15 H (4.70-6.10) 10^6/uL Hgb 19.9 H (14.0-18.0) g/dL Hct 55.3 H (42.0-54.0) % MCV 89.9 (80.0-94.0) fL MCH 32.4 (25.9-34.0) pg MCHC 36.0 H (29.9-35.2) g/dL RDW 13.4 (11.0-15.0) % Plt Count 211 (150-450) 10^3/uL MPV 11.4 (9.5-13.5) fL Seg Neuts % (Manual) 66.0 (43.0-75.0) Lymphocytes % (Manual) 19.0 L (20.5-60.0) % Monocytes % (Manual) 14.0 H (1.7-12.0) % Eosinophils % (Manual) 1.0 (0.9-7.0) % Basophils % (Manual) 0.0 L (0.2-2.0) % Neutrophils # (Manual) 12.40 H (1.4-6.5) 10^3/uL Lymphocytes # (Manual) 3.57 (1.20-3.80) 10^3/uL Monocytes # (Manual) 2.63 H (0.30-0.80) 10^3/uL Eosinophils # (Manual) 0.18 (0.00-0.70) 10^3/uL Basophils # (Manual) 0.00 (0.00-0.10) 10^3/uL Sodium 131 L (136-145) mmol/L Potassium 3.3 L (3.5-5.1) mmol/L Chloride 91 L (98-107) mmol/L Carbon Dioxide 24.3 (21.0-32.0) mmol/L Anion Gap 19.0 BUN 31.0 H (7.0-18.0) mg/dL Creatinine 7.73 H* (0.70-1.30) mg/dL Est GFR ( Amer) 10 L (>=60 mL/min/1.73m^2) Est GFR (Non-Af Amer) 8 L (>=60 mL/min/1.73m^2) BUN/Creatinine Ratio 4.0 Glucose 138 H (74-106) mg/dL Lactate 1.7 (0.4-2.0) mmol/L Calcium 9.4 (8.5-10.1) mg/dL Total Bilirubin 0.7 (0.2-1.0) mg/dL AST 56 H (15-37) U/L ALT 63 (16-63) U/L Alkaline Phosphatase 112 (46-116) U/L Total Creatine Kinase 89 (39-308) U/L CK-MB (CK-2) 1.84 (<=3.60) ng/mL Troponin I High Sens 10.0 (4.0-76.1) pg/mL Total Protein 7.7 (6.4-8.2) g/dL Albumin 3.6 (3.4-5.0) g/dL Globulin 4.1 g/dL Albumin/Globulin Ratio 0.9 ECG Data Attestation: ?I have reviewed the pertinent ECG results. Interpretation: 2045 sinus rhythm with a heart rate of 69 bpm NJ interval 146 ms QRS duration [address] elevation or depressioN, no STEMI Discharge Plan Discharge Chief Complaint: Weakness Clinical Impression: Acute kidney failure Patient Disposition: [facility] Time of Disposition Decision: 21:59 Discharge Location: [facility] Condition: Good Mode of Transportation: EMS Documented by User: Joaquin Jack 10/22/24 23:03 HPI HPI - General Adult General Chief complaint: Weakness Stated complaint: HEAT EXHAUSTION Time Seen by Provider: 10/22/24 20:08 Related Data Home Medications ?Medication ?Instructions ?Recorded ?Confirmed allopurinol 100 mg tablet 100 mg PO DAILY 08/03/24 10/22/24 gabapentin 300 mg capsule 300 mg PO TID 08/03/24 10/22/24 ibuprofen 800 mg tablet 800 mg PO Q8H PRN pain 08/03/24 10/22/24 Held on 08/04/24. Instructions: Resume on 08/11/24. 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 unspecified finger, initial encounter (ICD-10) Hypertension ?I10 - Essential (primary) hypertension (ICD-10) Social History Highest level of school completed/degree received: high school graduate Little interest or pleasure in doing things: not at all Feeling down, depressed, or hopeless: not at all Exam Constitutional Vital Signs, click to edit/add: Last Vital Signs Temp 97.9 F 10/22/24 20:09 Pulse 96 H 10/22/24 20:09 Resp 20 10/22/24 20:09 BP 90/49 10/22/24 20:09 Pulse Ox 96 10/22/24 20:09 O2 Del Method Room Air 10/22/24 20:09 Course Vital Signs Vital signs: Vital Signs Temperature 97.9 F 10/22/24 20:09 Pulse Rate 96 H 10/22/24 20:09 Respiratory Rate 20 10/22/24 20:09 Blood Pressure 90/49 10/22/24 20:09 Pulse Oximetry 96 10/22/24 20:09 Oxygen Delivery Method Room Air 10/22/24 20:09 Temperature 97.9 F 10/22/24 20:09 Pulse Rate 96 H 10/22/24 20:09 Respiratory Rate 20 10/22/24 20:09 Blood Pressure 90/49 10/22/24 20:09 Pulse Oximetry 96 10/22/24 20:09 Oxygen Delivery Method Room Air 10/22/24 20:09 Medical Decision Making MDM Narrative Medical decision making narrative: 29-year-old male presents here with a chief complaint of heat exhaustion . 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 He states he got home from work yesterday and felt nauseous cramping and did not feel well. He states he has been drinking Pedialyte at home and eating. He has not had any relief of his symptoms. He states he has not urinated today. Here to the emergency room. He denies a history of heat exhaustion in the past. past medical history includes gout and hypertension Upon arrival to the emergency room, patient had an IV established. Blood work was obtained. Patient was given a liter of fluids. Lab work returned and showed he had a elevated white blood cell of 8.8, BUN of 31 and peak creatinine of 7.73. Previous lab work was revealed and shows patient has not had a history of elevated creatinine in the past. He does not take medications and clued a Adipex for 6 with allopurinol and gabapentin. Patient also takes lisinopril. Patient was given 2 L of IV fluids here in the emergency room and then an order for 250 cc/h course also started. Dr Jack saw and evaluated the patient and reviewed the lab results, including elevated Creatinine. He spoke with Coby, the Hospitalist here at [facility], and she told him that she would prefer the patient be transferred to [facility]. Dr. Jack spoke with Dr. Hui regarding the transfer and the admission of this patient and Dr Hui accepted. Patient was made aware of his results and agrees with plan of care. He is stable at this time vital signs are stable. EKG was reviewed which showed no acute abnormalities. For this patient encounter I reviewed the mid-level provider?s documentation, medical decision-making and treatment plan, and I personally spent time with this patient. Shared APC visit, physician attestation: [id number]: This visit was performed by both a physician and an APC. I personally evaluated and examined the patient. I performed all aspects of MDM as documented. Patient is stable for transfer and we are awaiting a ride to take him to [facility]. - Demetrio, DO Lab Data Labs: Lab Results 10/22/24 Range/Units 20:30 WBC 18.8 H (4.0-11.0) 10^3/uL RBC 6.15 H (4.70-6.10) 10^6/uL Hgb 19.9 H (14.0-18.0) g/dL Hct 55.3 H (42.0-54.0) % MCV 89.9 (80.0-94.0) fL MCH 32.4 (25.9-34.0) pg MCHC 36.0 H (29.9-35.2) g/dL RDW 13.4 (11.0-15.0) % Plt Count 211 (150-450) 10^3/uL MPV 11.4 (9.5-13.5) fL Seg Neuts % (Manual) 66.0 (43.0-75.0) Lymphocytes % (Manual) 19.0 L (20.5-60.0) % Monocytes % (Manual) 14.0 H (1.7-12.0) % Eosinophils % (Manual) 1.0 (0.9-7.0) % Basophils % (Manual) 0.0 L (0.2-2.0) % Neutrophils # (Manual) 12.40 H (1.4-6.5) 10^3/uL Lymphocytes # (Manual) 3.57 (1.20-3.80) 10^3/uL Monocytes # (Manual) 2.63 H (0.30-0.80) 10^3/uL Eosinophils # (Manual) 0.18 (0.00-0.70) 10^3/uL Basophils # (Manual) 0.00 (0.00-0.10) 10^3/uL Sodium 131 L (136-145) mmol/L Potassium 3.3 L (3.5-5.1) mmol/L Chloride 91 L (98-107) mmol/L Carbon Dioxide 24.3 (21.0-32.0) mmol/L Anion Gap 19.0 BUN 31.0 H (7.0-18.0) mg/dL Creatinine 7.73 H* (0.70-1.30) mg/dL Est GFR ( Amer) 10 L (>=60 mL/min/1.73m^2) Est GFR (Non-Af Amer) 8 L (>=60 mL/min/1.73m^2) BUN/Creatinine Ratio 4.0 Glucose 138 H (74-106) mg/dL Lactate 1.7 (0.4-2.0) mmol/L Calcium 9.4 (8.5-10.1) mg/dL Total Bilirubin 0.7 (0.2-1.0) mg/dL AST 56 H (15-37) U/L ALT 63 (16-63) U/L Alkaline Phosphatase 112 (46-116) U/L Total Creatine Kinase 89 (39-308) U/L CK-MB (CK-2) 1.84 (<=3.60) ng/mL Troponin I High Sens 10.0 (4.0-76.1) pg/mL Total Protein 7.7 (6.4-8.2) g/dL Albumin 3.6 (3.4-5.0) g/dL Globulin 4.1 g/dL Albumin/Globulin Ratio 0.9 Discharge Plan Discharge Chief Complaint: Weakness Clinical Impression: Acute kidney failure Patient Disposition: [facility] Time of Disposition Decision: 21:59 Discharge Location: [facility] Condition: Good Mode of Transportation: EMS
[2024-10-22] MEDS: 0.9 % SODIUM CHLORIDE 1,000 ML 250 ML IV (22:44)
[2024-10-22 23:54] VITALS: BP 96/52; PULSE 82; O2SAT 98
== END 2024-10-22 23:45 | disposition short-term general hospital (02) ==
PROVIDERS: Physician Assistant; Emergency Provider Emergency Medicine; PCP Internal Medicine
DX: N17.9 Acute kidney failure, unspecified (principal); I10 Essential (primary) hypertension; M10.9 Gout, unspecified; L55.9 Sunburn, unspecified; Z79.899 Other long term (current) drug therapy
CPT/HCPCS: 36415; 80053; 81001; 82550; 82553; 83605; 84484; 85007; 85027; 93005; 96374; 99285; J2405

== ENCOUNTER 2025-02-02 13:38 | Outpatient (OUT) | payer OTHER, SELFPAY ==
--- NOTE | 2025-02-02 13:55 | XR_ITS ---
[address] [address] Patient Name: STAN CASIANO MRN: [id number] date: 1995 Sex: M Assigned Patient Location: [place] Current Patient Location: [place] Accession/Order Number: [id number] Exam Date: 02/02/2025 14:20 Report Date: 02/02/2025 14:32 At the request of: VALERI CARR Procedure: XR knee RT 3V RIGHT KNEE - 3 views CLINICAL HISTORY: Pain Right Lower Extremity, Swelling Right Lower Extremity COMPARISON: None FINDINGS: Joint effusion. Joint spaces appear maintained. No acute bony process. XR/XR knee RT 3V IMPRESSION: JOINT EFFUSION. NO ACUTE BONY PROCESS. Impression dictated by: Jorge Bingham Jr., D.O. 02/02/2025 2:32 PM Dictation Location: [place] [address] Electronically authenticated by: [id number] Y Date: 02/02/2025 14:32
--- OUTSIDE RECORDS SUMMARY | 2025-02-02 13:58 | XMS_ITS | CCD ---
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 [address] SWEETIE with Reflexon 10-24-2024 SWEETIE with Reflex Negative Normal Negative [facility] Comment on above: Result Comment: Perf ormed at: [facility] [id number] Internal Medicine Hospitalist: Laurent Walker PhD, Phone: [phone] PERFORMED BY: [place] [address] PATHOLOGIST WORK COUNSELOR VARUN ARGUETA M.D. Performed By: #### A NA CHOICE #### [facility] , ANCA Profile (ANCA+MPO+PR3)o n 10-24-2024 Antimyeloperoxidase (MPO) Abs <0.2 Normal 0.0-0.9 [facility] Comment on above: Performed By: #### B MP, MG #### [address] Atypical pANCA <1:20 Normal Neg:<1:20 [facility] Comment on above: Result Comment: The atypical pANCA pattern has been observed in a significant percentage of patients with ulcerative colitis, primary sclerosing cholangitis and autoimmune hepatitis. Performed at: [facility] [address] [id number] Internal Medicine Hospitalist: Ata Fletcher MD, Phone: [phone] Performed at: [facility] [address] [id number] Internal Medicine Hospitalist: Laurent Walker PhD, Phone: [phone] Performed By: #### B MP, MG #### [place] [address] [place] Cytoplasmic (C-ANCA) <1:20 Normal Neg:<1:20 [facility] Comment on above: Performed By: #### B MP, MG #### [place] [address] [place] Perinuclear (P-ANCA) <1:20 Normal Neg:<1:20 [facility] Comment on above: Result Comment: The presence of positive fluorescence exhibiting P-ANCA or C-ANCA patterns alone is not specific for the diagnosis of Christiano's Granulomatosis (WG) or microscopic polyangiitis. Decisions about treatment should not be based solely on ANCA IFA results. The International ANCA Group Consensus recommends follow up testing of positive sera with both SD- 3 and MPO-ANCA enzyme immunoassays. As many as 5% serum samples are positive only by EIA. Ref. AM J Clin Pathol 1999;111:507-513. Performed By: #### B MP, MG #### [address] Proteinase 3 (PR3) Antibodies <0.2 Normal 0.0-0.9 [facility] Comment on above: Result Comment: PERF ORMED BY: [place] [address] PATHOLOGIST WORK COUNSELOR VARUN ARGUETA M.D. Performed By: #### B BART, MG #### [address] Aldosteroneon 10-24-2024 Aldosterone <1.0 Normal 0.0-30.0 [facility] Comment on above: Result Comment: This test was developed and its performance characteristics determined by [employer]. It has not been cleared or approved by the Food and Drug Administration. Performed at: [address] [id number] Internal Medicine Hospitalist: Ata Fletcher MD, Phone: [phone] PERFORMED BY: [place] [address] PATHOLOGIST WORK COUNSELOR VARUN ARGUETA M.D. Performed By: #### B MP, MG #### [address] C-Reactive Proteinon 025 C-Reactive Protein 0.9 mg/dL High 0.0-0.5 [facility] Comment on above: Result Comment: PERF ORMED BY: [place] [address] PATHOLOGIST WORK COUNSELOR VARUN ARGUETA M.D. Performed By: #### B MP, MG #### [address] Complete Blood Count Auto Di ffon 10-24-2024 Basophils (Bld) [#/Vol] 0.2 10*3/uL Normal 0.0-0.2 [facility] Comment on above: Performed By: #### B MP, MG #### [facility] [address] Basophils/100 WBC (Bld) 1.3 % Normal . T silvana [facility] Comment on above: Performed By: #### B MP, MG #### [facility] [address] [place] [address] [place] Eosinophils (Bld) [#/Vol] 0.1 10*3/uL Normal 0.0-0.45 [facility] Comment on above: Performed By: #### B MP, MG #### [facility] [address] Eosinophils/100 WBC (Bld) 1.1 % Normal . [facility] Comment on above: Performed By: #### B MP, MG #### [address] Erythrocyte distribution width (RBC) [Ratio] 15.0 % High 12.0-14.8 [facility] Comment on above: Performed By: #### B MP, MG #### [address] Hematocrit (Bld) [Volume fraction] 48.8 % Normal 38.8-50.0 [facility] Comment on above: Performed By: #### B MP, MG #### [address] Hemoglobin (Bld) [Mass/Vol] 16.5 g/dL Normal 13.0-17.0 [facility] Comment on above: Performed By: #### B MP, MG #### [facility] [address] [place] [address] [place] Lymphocytes (Bld) [#/Vol] 3.1 10*3/uL Normal 1.00-4.8 [facility] Comment on above: Performed By: #### B MP, MG #### [place] [address] [place] Lymphocytes/100 WBC (Bld) 27.1 % Normal . [facility] Comment on above: Performed By: #### B MP, MG #### [address] MCH (RBC) [Entitic mass] 31.8 pg Normal 27.5-35.2 [facility] Comment on above: Performed By: #### B MP, MG #### [address] MCV (RBC) [Entitic vol] 94.5 fL Normal 83.5-101 [facility] Comment on above: Performed By: #### B MP, MG #### [address] Mean Corpuscular HGB Conc 33.7 g/dL Normal 32.5-35.6 [facility] Comment on above: Performed By: #### B MP, MG #### [address] Monocytes (Bld) [#/Vol] 1.3 10*3/uL High 0.0-0.8 [facility] Comment on above: Performed By: #### B MP, MG #### [address] Monocytes/100 WBC (Bld) 11.3 % Normal . [facility] Comment on above: Performed By: #### B MP, MG #### [address] Neutrophils (Bld) [#/Vol] 6.9 10*3/uL Normal 1.8-7.7 [facility] Comment on above: Performed By: #### B MP, MG #### [address] Neutrophils/100 WBC (Bld) 59.2 % Normal . [facility] Comment on above: Performed By: #### B MP, MG #### [address] NRBC% 0.1 /100{WBC} Normal 0-0.5 [facility] Comment on above: Performed By: #### B MP, MG #### [facility] [address] Platelet mean volume (Bld) [Entitic vol] 10.0 fL Normal 6.6-10.1 [facility] Comment on above: Performed By: #### B MP, MG #### [facility] [address] Platelets (Bld) [#/Vol] 151 10*3/uL Normal 150-450 [facility] Comment on above: Performed By: #### B MP, MG #### [address] RBC (Bld) [#/Vol] 5.17 10*6/uL Normal 3.90-5.60 [facility] Comment on above: Performed By: #### B MP, MG #### [address] WBC (Bld) [#/Vol] 11.6 10*3/uL High 4.1-10.5 [facility] Comment on above: Performed By: #### B MP, MG #### [address] White Blood Count 11.6 [CFU]/mL High 4.1-10.5 [facility] Comment on above: Performed By: #### B MP, MG #### [address] Comprehensive Metabolic Pane trent 10-24-2024 Albumin [Mass/Vol] 3.7 g/dL Normal 3.5-5.7 [facility] Comment on above: Performed By: #### B MP, MG #### [address] Albumin/Globulin [Mass ratio] 1.5 {ratio} Normal [facility] Comment on above: Performed By: #### B MP, MG #### [address] ALP [Catalytic activity/Vol] 65 U/L Normal 34-104 [facility] Comment on above: Performed By: #### B MP, MG #### [address] ALT [Catalytic activity/Vol] 35 U/L Normal 7-52 [facility] Comment on above: Performed By: #### B MP, MG #### [facility] [address] Anion gap [Moles/Vol] 9.8 mmol/L Normal 6.0-15.0 [facility] Comment on above: Performed By: #### B MP, MG #### [address] AST [Catalytic activity/Vol] 35 U/L Normal 13-39 [facility] Comment on above: Performed By: #### B MP, MG #### [address] Bilirubin [Mass/Vol] 0.6 mg/dL Normal 0.3-1.0 [facility] Comment on above: Performed By: #### B MP, MG #### [place] [address] [place] Calcium [Mass/Vol] 8.9 mg/dL Normal 8.6-10.3 [facility] Comment on above: Performed By: #### B MP, MG #### [place] [address] [place] Chloride [Moles/Vol] 103 mmol/L Normal 98-107 [facility] Comment on above: Performed By: #### B MP, MG #### [place] [address] [place] CO2 [Moles/Vol] 28.7 mmol/L Normal 21.0-31.0 The [facility] Comment on above: Performed By: #### B MP, MG #### [place] [address] [place] Creatinine [Mass/Vol] 1.54 mg/dL Significan t change down 0.70-1.30 [facility] Comment on above: Performed By: #### B MP, MG #### [address] Creatinine Clr Calc Pharmacy 94.49 Normal [facility] Comment on above: Performed By: #### B MP, MG #### [place] [address] [place] GFR/1.73 sq M.predicted MDRD (S/P/Bld) [Vol rate/Area] mL/min/{1.73_m2} Normal [facility] Comment on above: Performed By: #### B MP, MG #### [address] Globulin (S) [Mass/Vol] 2.5 g/dL Normal T he [facility] Comment on above: Performed By: #### B MP, MG #### [address] Glucose [Mass/Vol] 97 mg/dL Normal 70-100 [facility] Comment on above: Result Comment: [facility] Glucose Reference Range is dependent on time and content of last meal. Glucose of more than 200 mg/dL in a nonstressed, ambulatory subject supports the diagnosis of Diabetes Mellitus. ADA recommended reference range Performed By: #### B MP, MG #### [address] Potassium [Moles/Vol] 3.5 mmol/L Normal 3.5-5.1 [facility] Comment on above: Performed By: #### B MP, MG #### [address] Protein [Mass/Vol] 6.2 g/dL Low 6.4-8.9 [facility] Comment on above: Performed By: #### B MP, MG #### [address] Sodium [Moles/Vol] 138 mmol/L Normal 136-145 [facility] Comment on above: Performed By: #### B MP, MG #### [address] Urea nitrogen [Mass/Vol] 19 mg/dL Normal 7-25 [facility] Comment on above: Performed By: #### B MP, MG #### [address] Erythrocyte Sedimentation Ra yokasta 10-24-2024 ESR (Bld) [Velocity] 2 mm/h Normal 0-14 [facility] Comment on above: Result Comment: PERF ORMED BY: [place] [address] PATHOLOGIST WORK COUNSELOR VARUN ARGUETA M.D. Performed By: #### B MP, MG #### [address] HIV 1/O/2 Antigen/Antibodyon 10-24-2024 HIV Screen 4th Generation Non-Reactive Normal Non Reactive [facility] Comment on above: Result Comment: HIV- 1/HIV-2 antibodies and HIV-1 p24 antigen were NOT detected. There is no laboratory evidence of HIV infection. HIV Negative Performed at: [facility] [address] Internal Medicine Hospitalist: Laurent Walker PhD, Phone: [phone] PERFORMED BY: [place] [address] PATHOLOGIST WORK COUNSELOR VARUN ARGUETA M.D. Performed By: #### B MP, MG #### [address] Hepatitis Acute Panelon 09-27 HBsAg Screen Negative Normal Negative [facility] Comment on above: Performed By: #### B MP, MG #### [address] Hepatitis A Antibody IgM Negative Normal Negative [facility] Comment on above: Result Comment: A ne gative anti-HAV IgM result suggests no recent or current HAV infection. Performed By: #### B MP, MG #### [address] Hepatitis B Core Antibody IgM Negative Normal Negative [facility] Comment on above: Performed By: #### B MP, MG #### [address] Hepatitis C Virus Antibody Non-Reactive Normal Non Reactive [facility] Comment on above: Performed By: #### B MP, MG #### [address] Interpretation Hepatitis C Comment Normal . [facility] Comment on above: Result Comment: Not infected with HCV unless early or acute infection is suspected (which may be delayed in an immunocompromised individual), or other evidence exists to indicate HCV infection. Performed at: [address] [id number] Internal Medicine Hospitalist: Laurent Walker PhD, Phone: [phone] PERFORMED BY: [place] [address] PATHOLOGIST WORK COUNSELOR VARUN ARGUETA M.D. Performed By: #### B MP, MG #### [address] Renin Activityon 10-24-2024 Renin Activity 10.530 Normal 0.167-5.380 [facility] Comment on above: Result Comment: This test was developed and its performance characteristics determined by [facility]. It has not been cleared or approved by the Food and Drug Administration. Performed at: [address] [id number] Internal Medicine Hospitalist: Ata Fletcher MD, Phone: [phone] PERFORMED BY: [place] [address] PATHOLOGIST WORK COUNSELOR VARUN ARGUETA M.D. Performed By: #### B MP, MG #### [address] Basic Metabolic Panelon 06-2 Anion gap [Moles/Vol] 9.6 mmol/L Normal 6.0-15.0 [facility] Comment on above: Performed By: #### P HOS, BMP #### [address] Calcium [Mass/Vol] 9.3 mg/dL Normal 8.6-10.3 [facility] Comment on above: Performed By: #### P HOS, BMP #### [place] [address] [place] Chloride [Moles/Vol] 102 mmol/L Normal 98-107 [facility] Comment on above: Performed By: #### P HOS, BMP #### [address] CO2 [Moles/Vol] 27.3 mmol/L Normal 21.0-31.0 [facility] Comment on above: Performed By: #### P HOS, BMP #### [place] [address] [place] Creatinine [Mass/Vol] 3.60 mg/dL Significan t change down 0.70-1.30 [facility] Comment on above: Performed By: #### P HOS, BMP #### [place] [address] [place] Creatinine Clr Calc Pharmacy 40.42 Normal [facility] Comment on above: Result Comment: PERF ORMED BY: [place] [address] PATHOLOGIST WORK COUNSELOR AVRUN ARGUETA M.D. Performed By: #### P HOS, BMP #### [place] [address] [place] GFR/1.73 sq M.predicted MDRD (S/P/Bld) [Vol rate/Area] 22.745 mL/min/{1.73_m2} Normal [facility] Comment on above: Performed By: #### P HOS, BMP #### [place] [address] [place] Glucose [Mass/Vol] 143 mg/dL High 70-100 [facility] Comment on above: Result Comment: [place] Glucose Reference Range is dependent on time and content of last meal. Glucose of more than 200 mg/dL in a nonstressed, ambulatory subject supports the diagnosis of Diabetes Mellitus. ADA recommended reference range Performed By: #### P HOS, BMP #### [place] [address] [place] Potassium [Moles/Vol] 3.9 mmol/L Normal 3.5-5.1 [facility] Comment on above: Performed By: #### P HOS, BMP #### [address] Sodium [Moles/Vol] 135 mmol/L Low 136-145 [facility] Comment on above: Performed By: #### P HOS, BMP #### [address] Urea nitrogen [Mass/Vol] 24 mg/dL Normal 7-25 [facility] Comment on above: Performed By: #### P HOS, BMP #### [address] Anion gap [Moles/Vol] 15.7 mmol/L High 6.0-15.0 Th e [facility] Comment on above: Performed By: #### B MP, MG #### [address] Calcium [Mass/Vol] 8.5 mg/dL Low 8.6-10.3 [facility] Comment on above: Performed By: #### B MP, MG #### [address] Chloride [Moles/Vol] 100 mmol/L Normal 98-107 [facility] Comment on above: Performed By: #### B MP, MG #### [address] CO2 [Moles/Vol] 22.9 mmol/L Normal 21.0-31.0 [facility] Comment on above: Performed By: #### B MP, MG #### [address] Creatinine [Mass/Vol] 5.07 mg/dL Significan t change down 0.70-1.30 [facility] Comment on above: Performed By: #### B MP, MG #### [place] [address] [place] Creatinine Clr Calc Pharmacy 28.70 Normal [facility] Comment on above: Result Comment: PERF ORMED BY: [place] [address] PATHOLOGIST WORK COUNSELOR VARUN ARGUETA M.D. Performed By: #### B MP, MG #### [place] [address] [place] GFR/1.73 sq M.predicted MDRD (S/P/Bld) [Vol rate/Area] 15.082 mL/min/{1.73_m2} Normal [facility] Comment on above: Performed By: #### B MP, MG #### [address] Glucose [Mass/Vol] 103 mg/dL High 70-100 [facility] Comment on above: Result Comment: [facility] Glucose Reference Range is dependent on time and content of last meal. Glucose of more than 200 mg/dL in a nonstressed, ambulatory subject supports the diagnosis of Diabetes Mellitus. ADA recommended reference range Performed By: #### B MP, MG #### [address] Potassium [Moles/Vol] 3.6 mmol/L Normal 3.5-5.1 [facility] Comment on above: Performed By: #### B MP, MG #### [address] Sodium [Moles/Vol] 135 mmol/L Low 136-145 [facility] Comment on above: Performed By: #### B MP, MG #### [place] [address] [place] Urea nitrogen [Mass/Vol] 27 mg/dL High 7-25 [facility] Comment on above: Performed By: #### B MP, MG #### [address] Anion gap [Moles/Vol] 14.5 mmol/L Normal 6.0-15.0 Th e [facility] Comment on above: Performed By: #### B MP, MG #### [place] [address] [place] Calcium [Mass/Vol] 8.0 mg/dL Low 8.6-10.3 [facility] Comment on above: Performed By: #### B MP, MG #### [address] Chloride [Moles/Vol] 100 mmol/L Normal 98-107 [facility] Comment on above: Performed By: #### B MP, MG #### [address] CO2 [Moles/Vol] 21.9 mmol/L Normal 21.0-31.0 [facility] Comment on above: Performed By: #### B MP, MG #### [address] Creatinine [Mass/Vol] 5.88 mg/dL High 0.70-1.30 [facility] Comment on above: Performed By: #### B MP, MG #### [address] GFR/1.73 sq M.predicted MDRD (S/P/Bld) [Vol rate/Area] 12.624 mL/min/{1.73_m2} Normal [facility] Comment on above: Performed By: #### B MP, MG #### [address] Glucose [Mass/Vol] 117 mg/dL High 70-100 [facility] Comment on above: Result Comment: [place] Glucose Reference Range is dependent on time and content of last meal. Glucose of more than 200 mg/dL in a nonstressed, ambulatory subject supports the diagnosis of Diabetes Mellitus. ADA recommended reference range Performed By: #### B MP, MG #### [address] Potassium [Moles/Vol] 3.4 mmol/L Low 3.5-5.1 [facility] Comment on above: Performed By: #### B MP, MG #### [place] [address] [place] Sodium [Moles/Vol] 133 mmol/L Low 136-145 [facility] Comment on above: Performed By: #### B MP, MG #### [address] Urea nitrogen [Mass/Vol] 27 mg/dL High 7-25 [facility] Comment on above: Performed By: #### B MP, MG #### [address] Catecholamines, Ur Free, 24H jocelyne 10-23-2024 Dopamine, 24 Hr Urine 341 Normal 0-510 [facility] Comment on above: Order Comment: TOTAL VOLUME = 3625mL List any foods/meds the pt has taken (see Test/Proc Notes):: water Result Comment: Perf ormed at: - [facility] [id number] Internal Medicine Hospitalist: Ata Fletcher MD, Phone: [phone] PERFORMED BY: [place] [address] PATHOLOGIST WORK COUNSELOR VARUN ARGUETA M.D. Performed By: #### C ATEC FR24 #### [facility] , Dopamine, Urine 94 Normal Undefined [facility] Comment on above: Order Comment: TOTAL VOLUME = 3625mL List any foods/meds the pt has taken (see Test/Proc Notes):: water Result Comment: This test was developed and its performance characteristics determined by [facility]. It has not been cleared or approved by the Food and Drug Administration. Performed By: #### C ATEC FR24 #### [facility] , Epinephrine, Urine <3 Normal Undefined [facility] Comment on above: Order Comment: TOTAL VOLUME = 3625mL List any foods/meds the pt has taken (see Test/Proc Notes):: water Result Comment: This test was developed and its performance characteristics determined by [facility]. It has not been cleared or approved by the Food and Drug Administration. Performed By: #### C ATEC FR24 #### [facility] , Epinephrine, Urine, 24Hr <11 Normal 0-20 [facility] Comment on above: Order Comment: TOTAL VOLUME = 3625mL List any foods/meds the pt has taken (see Test/Proc Notes):: water Performed By: #### C ATEC FR24 #### [facility] , Norepinephrine, 24 Hr Urine 62 Normal 0-135 [facility] Comment on above: Order Comment: TOTAL VOLUME = 3625mL List any foods/meds the pt has taken (see Test/Proc Notes):: water Performed By: #### C ATEC FR24 #### [facility] , Norepinephrine, Urine 17 Normal Undefined [facility] Comment on above: Order Comment: TOTAL VOLUME = 3625mL List any foods/meds the pt has taken (see Test/Proc Notes):: water Result Comment: This test was developed and its performance characteristics determined by [facility]. It has not been cleared or approved by the Food and Drug Administration. Performed By: #### C ATEC FR24 #### [facility] , Complete Blood Count Auto Di ffon 10-23-2024 Basophils (Bld) [#/Vol] 0.2 10*3/uL Normal 0.0-0.2 [facility] Comment on above: Result Comment: PERF ORMED BY: [place] [address] PATHOLOGIST WORK COUNSELOR VARUN ARGUETA M.D. Performed By: #### B MP, MG #### [facility] [address] [place] [address] [place] Basophils/100 WBC (Bld) 1.4 % Normal . T silvana [facility] Comment on above: Performed By: #### B MP, MG #### [facility] [address] [place] [address] [place] Eosinophils (Bld) [#/Vol] 0.2 10*3/uL Normal 0.0-0.45 [facility] Comment on above: Performed By: #### B MP, MG #### [place] [address] [place] Eosinophils/100 WBC (Bld) 1.4 % Normal . [facility] Comment on above: Performed By: #### B MP, MG #### [address] Erythrocyte distribution width (RBC) [Ratio] 14.6 % Normal 12.0-14.8 [facility] Comment on above: Performed By: #### B MP, MG #### [address] Hematocrit (Bld) [Volume fraction] 52.3 % High 38.8-50.0 [facility] Comment on above: Performed By: #### B MP, MG #### [address] Hemoglobin (Bld) [Mass/Vol] 18.0 g/dL High 13.0-17.0 [facility] Comment on above: Performed By: #### B MP, MG #### [address] Lymphocytes (Bld) [#/Vol] 2.9 10*3/uL Normal 1.00-4.8 [facility] Comment on above: Performed By: #### B MP, MG #### [address] Lymphocytes/100 WBC (Bld) 20.4 % Normal . [facility] Comment on above: Performed By: #### B MP, MG #### [address] MCH (RBC) [Entitic mass] 32.2 pg Normal 27.5-35.2 [facility] Comment on above: Performed By: #### B MP, MG #### [address] MCV (RBC) [Entitic vol] 93.4 fL Normal 83.5-101 T [facility] Comment on above: Performed By: #### B MP, MG #### [address] Mean Corpuscular HGB Conc 34.5 g/dL Normal 32.5-35.6 [facility] Comment on above: Performed By: #### B MP, MG #### [facility] [address] [place] [address] [place] Monocytes (Bld) [#/Vol] 1.6 10*3/uL High 0.0-0.8 [facility] Comment on above: Performed By: #### B MP, MG #### [facility] [address] [place] [address] [place] Monocytes/100 WBC (Bld) 11.2 % Normal . [facility] Comment on above: Performed By: #### B MP, MG #### [facility] [address] [place] [address] [place] Neutrophils (Bld) [#/Vol] 9.3 10*3/uL High 1.8-7.7 [facility] Comment on above: Performed By: #### B MP, MG #### [facility] [address] [place] [address] [place] Neutrophils/100 WBC (Bld) 65.6 % Normal . [facility] Comment on above: Performed By: #### B MP, MG #### [facility] [address] [place] [address] [place] NRBC% 0.2 /100{WBC} Normal 0-0.5 [facility] Comment on above: Performed By: #### B MP, MG #### [facility] [address] [place] [address] [place] Platelet mean volume (Bld) [Entitic vol] 9.8 fL Normal 6.6-10.1 [facility] Comment on above: Performed By: #### B MP, MG #### [facility] [address] [place] [address] [place] Platelets (Bld) [#/Vol] 159 10*3/uL Normal 150-450 [facility] Comment on above: Performed By: #### B MP, MG #### [facility] [address] [place] [address] [place] RBC (Bld) [#/Vol] 5.60 10*6/uL Normal 3.90-5.60 [facility] Comment on above: Performed By: #### B MP, MG #### [address] WBC (Bld) [#/Vol] 14.3 10*3/uL High 4.1-10.5 [facility] Comment on above: Performed By: #### B MP, MG #### [address] White Blood Count 14.3 [CFU]/mL High 4.1-10.5 [facility] Comment on above: Performed By: #### B MP, MG #### [place] [address] [place] Dipstick and Microscopicon 0 10-23-2024 Appearance (U) Clear Normal Clear [facility] Comment on above: Order Comment: Name Collection Type:: Clean-Voided Midstream Performed By: #### B MP, MG #### [address] Bacteria,Urine Rare Normal None Seen [facility] Comment on above: Order Comment: Name Collection Type:: Clean-Voided Midstream Performed By: #### B MP, MG #### [place] [address] [place] Bilirubin,Urine Negative Normal Negative The [facility] Comment on above: Order Comment: Name Collection Type:: Clean-Voided Midstream Performed By: #### B MP, MG #### [place] [address] [place] Color (U) Light-Yellow Normal Yellow [facility] Comment on above: Order Comment: Name Collection Type:: Clean-Voided Midstream Performed By: #### B MP, MG #### [place] [address] [place] Glucose Ql (U) 300 mg/dL Normal Normal The [facility] Comment on above: Order Comment: Name Collection Type:: Clean-Voided Midstream Performed By: #### B MP, MG #### [place] [address] [place] Hyaline Casts,Urine None Normal 0-8 [facility] Comment on above: Order Comment: Name Collection Type:: Clean-Voided Midstream Performed By: #### B MP, MG #### [address] Ketones Ql (U) Negative Normal Negative The [facility] Comment on above: Order Comment: Name Collection Type:: Clean-Voided Midstream Performed By: #### B MP, MG #### [address] Leukocyte esterase Test strip Ql (U) Negative Normal Negative [facility] Comment on above: Order Comment: Name Collection Type:: Clean-Voided Midstream Performed By: #### B MP, MG #### [address] Mucus,Urine Rare Normal [facility] Comment on above: Order Comment: Name Collection Type:: Clean-Voided Midstream Result Comment: PERF ORMED BY: [place] [address] PATHOLOGIST WORK COUNSELOR VARUN ARGUETA M.D. Performed By: #### B MP, MG #### [place] [address] [place] Nitrite,Urine Negative Normal Negative The [facility] Comment on above: Order Comment: Name Collection Type:: Clean-Voided Midstream Performed By: #### B MP, MG #### [place] [address] [place] Occult Blood,Urine 2+ Normal Negative [facility] Comment on above: Order Comment: Name Collection Type:: Clean-Voided Midstream Result Comment: PERF ORMED BY: [place] [address] PATHOLOGIST WORK COUNSELOR VARUN ARGUETA M.D. Performed By: #### B MP, MG #### [address] pH (U) 5.5 [pH] Normal 5.0-9.0 [facility] Comment on above: Order Comment: Name Collection Type:: Clean-Voided Midstream Performed By: #### B MP, MG #### [place] [address] [place] Protein,Urine Trace Normal Negative The [facility] Comment on above: Order Comment: Name Collection Type:: Clean-Voided Midstream Performed By: #### B MP, MG #### [address] RBC,Urine 1-2 Normal 0-4 [facility] Comment on above: Order Comment: Name Collection Type:: Clean-Voided Midstream Performed By: #### B MP, MG #### [address] Specificy [place],Urine 1.009 Normal 1.001-1.030 [facility] Comment on above: Order Comment: Name Collection Type:: Clean-Voided Midstream Performed By: #### B MP, MG #### [address] Squamous Epithelial Cell,Urine 1-2 Normal 0-2 [facility] Comment on above: Order Comment: Name Collection Type:: Clean-Voided Midstream Performed By: #### B MP, MG #### [address] Urobilinogen,Urine Normal Normal Normal The [facility] Comment on above: Order Comment: Name Collection Type:: Clean-Voided Midstream Performed By: #### B MP, MG #### [place] [address] [place] WBC,Urine 1-2 Normal 0-4 [facility] Comment on above: Order Comment: Name Collection Type:: Clean-Voided Midstream Performed By: #### B MP, MG #### [address] Drug Screen,Urineon 10-24-19 25 Amphetamine Screen,Urine Negative Normal Negative [facility] Comment on above: Performed By: #### B MP, MG #### [address] Barbiturate Screen,Urine Negative Normal Negative [facility] Comment on above: Performed By: #### B MP, MG #### [address] Benzodiazepines Screen,Urine Negative Normal Negative [facility] Comment on above: Performed By: #### B MP, MG #### [address] Cannabinoid Screen,Urine Positive Normal Negative [facility] Comment on above: Result Comment: Thes e are unconfirmed results and should not be used for legal purposes. Drug Cut-Off Concentration: AMPH 1000 ng/mL JOES LUIS 200 ng/mL CANDIDO 200 ng/mL COCM 300 ng/mL OP 300 ng/mL PCP 25 ng/mL THC 20 ng/mL PERFORMED BY: [place] [address] PATHOLOGIST WORK COUNSELOR VARUN ARGUETA M.D. Performed By: #### B MP, MG #### [address] Cocaine Screen,Urine Negative Normal Negative [facility] Comment on above: Performed By: #### B MP, MG #### [address] Opiate Screen,Urine Negative Normal Negative The [facility] Comment on above: Performed By: #### B MP, MG #### [address] Phencyclidine Screen,Urine Negative Normal Negative [facility] Comment on above: Performed By: #### B MP, MG #### [address] Magnesiumon 10-23-2024 Magnesium [Mass/Vol] 2.3 mg/dL Normal 1.9-2.7 [facility] Comment on above: Result Comment: PERF ORMED BY: [place] [address] PATHOLOGIST WORK COUNSELOR VARUN ARGUETA M.D. Performed By: #### B MP, MG #### [address] [place] [address] [place] Phosphoruson 10-23-2024 Phosphate [Mass/Vol] 2.1 mg/dL Low 2.5-4.5 [facility] Comment on above: Result Comment: PERF ORMED BY: [place] [address] PATHOLOGIST WORK COUNSELOR VARUN ARGUETA M.D. Performed By: #### P HOS, BMP #### [address] Protein Creat Ratio Ur Rando mon 10-23-2024 Creatinine, Urine (Random) 87.00 mg/dL Normal [facility] Comment on above: Result Comment: No r eference range established Performed By: #### B MP, MG #### [address] Protein (U) [Mass/Vol] 39 mg/dL High 0-9 Th e [facility] Comment on above: Performed By: #### B MP, MG #### [address] Urine Protein/Creatinine Ratio 448 mg/g{Cre} High 0-200 [facility] Comment on above: Result Comment: PERF ORMED BY: [place] [address] PATHOLOGIST WORK COUNSELOR VARUN ARGUETA M.D. Performed By: #### B MP, MG #### [address] US renal BIon 10-23-2024 US renal BI [facility] [place] [address] Ultrasound Report Signed Patient: Tu Casiano I MR#: [id number] : 1995 Acct:[id number] Age/Sex: 29 / M ADM Date: 10/23/24 Loc: Room: [address] [place] [address] Type: DIS IN Attending Dr: Poli Florentino MD Ordering Provider: Caitlin Gambino APRN Date of Service: 10/23/24 US/US renal BI: r/o obstruction Copies to: MD Caitlin Becker APRN BILATERAL RENAL AND BLADDER ULTRASOUND CLINICAL HISTORY: Acute kidney injury, rule out obstruction COMPARISON: None Estimation of renal size is approximately 12 cm on the right and 11.74 cm on the left. No contour deforming mass, shadowing stone or hydronephrosis. The urinary bladder is partially distended with a volume of 23.43 ml. No shadowing stone or focal lesion. US/US renal BI IMPRESSION: NO OBSTRUCTIVE UROPATHY. Impression dictated by: Zach Savage M.D. 10/23/2024 9:51 AM Dictation Location: [place] [address] [facility]: [facility] Transcribed By: ADELITA 10/23/2451 Dictated By: Zach Savage MD 10/23/2449 Signed By: 10/23/2451 Normal [facility] Uric Acidon 10-23-2024 Urate [Mass/Vol] 11.3 mg/dL High 4.4-7.6 The [facility] Comment on above: Result Comment: PERF ORMED BY: [place] [address] PATHOLOGIST WORK COUNSELOR VARUN ARGUETA M.D. Performed By: #### B MG BART #### [address] Basophils/100 WBC Manual cnt (Bld)Ordered By: Nicci Severino on 10-22-2024 Basophils/100 WBC (Bld) 0.0 % Low 0.2-2.0 [facility] Eosinophils/100 WBC Manual c nt (Bld)Ordered By: Nicci Severino on 10-22-2024 Eosinophils/100 WBC (Bld) 1.0 % 0.9-7.0 [facility] Erythrocyte distribution wid th Auto (RBC) [Ratio]Ordered By: Allison Leo on 10-22-2024 Erythrocyte distribution width (RBC) [Ratio] 13.4 % 11.0-15.0 [facility] Estimated glomerular filtrat ion rate (GFR) non- AmericanOrdered By: Nicci Severino on 10-22-2024 GFR/1.73 sq M.predicted among non-blacks MDRD (S/P/Bld) [Vol rate/Area] 8 mL/min/{1.73_m2} Low >=60 mL/min/1.73m 2 [facility] Globulin Calc (S) [Mass/Vol] Ordered By: Nicci Severino on 10-22-2024 Globulin (S) [Mass/Vol] 4.1 g/dL [facility] Hematocrit Auto (Bld) [Volum e fraction]Ordered By: Allison Leo on 10-22-2024 Hematocrit (Bld) [Volume fraction] 55.3 % High 42.0-54.0 [facility] Hemoglobin [Mass/volume] in BloodOrdered By: Allison Leo on 10-22-2024 Hemoglobin (Bld) [Mass/Vol] 19.9 g/dL High 14.0-18.0 [facility] Laboratory - Chemistry and C hemistry - challengeOrdered By: Nicci Severino on 10-22-2024 Albumin [Mass/Vol] 3.6 g/dL 3.4-5.0 [facility] ALP [Catalytic activity/Vol] 112 U/L 46-116 [facility] ALT [Catalytic activity/Vol] 63 U/L 16-63 [facility] AST [Catalytic activity/Vol] 56 U/L High 15-37 [facility] Bilirubin [Mass/Vol] 0.7 mg/dL 0.2-1.0 [facility] Calcium [Mass/Vol] 9.4 mg/dL 8.5-10.1 [facility] Chloride [Moles/Vol] 91 mmol/L Low 98-107 [facility] CK [Catalytic activity/Vol] 89 U/L 39-308 [facility] CK.MB [Mass/Vol] 1.84 ng/mL <=3.60 [facility] CO2 [Moles/Vol] 24.3 mmol/L 21.0-32.0 [facility] Creatinine [Mass/Vol] 7.73 mg/dL Critically high 0.70-1.30 [facility] Comment on above: RESULTS CALLED TO FRANCINE Jack DO @BY Maurice Marie, MLTat 2116 GFR/1.73 sq M.predicted MDRD (S/P/Bld) [Vol rate/Area] 10 mL/min/{1.73_m2} Low >=60 mL/min/1.73m 2 [facility] Glucose [Mass/Vol] 138 mg/dL High 74-106 [facility] Lactate [Moles/Vol] 1.7 mmol/L 0.4-2.0 [facility] Potassium [Moles/Vol] 3.3 mmol/L Low 3.5-5.1 [facility] Protein [Mass/Vol] 7.7 g/dL 6.4-8.2 [facility] Sodium [Moles/Vol] 131 mmol/L Low 136-145 [facility] Urea nitrogen [Mass/Vol] 31.0 mg/dL High 7.0-18.0 [facility] Urea nitrogen/Creatinine [Mass ratio] 4.0 mg/mg [facility] Laboratory - Hematology and Cell countsOrdered By: Nicci Severino on 10-22-2024 Lymphocytes/100 WBC (Bld) 19.0 % Low 20.5-60.0 [facility] Monocytes/100 WBC (Bld) 14.0 % High 1.7-12.0 [facility] Leukocytes [#/volume] correc eryn for nucleated erythrocytes in Blood by Automated counOrdered By: Allison Leo on 10-22-2024 WBC corrected for nucl RBC Auto (Bld) [#/Vol] 18.8 10 3/uL High 4.0-11.0 [facility] MCH Auto (RBC) [Entitic mass ]Ordered By: Allison Leo on 10-22-2024 MCH (RBC) [Entitic mass] 32.4 pg 25.9-34.0 [facility] MCHC Auto (RBC) [Mass/Vol]Or dered By: Allison Leo on 10-22-2024 MCHC (RBC) [Mass/Vol] 36.0 g/dL High 29.9-35.2 [facility] MCV Auto (RBC) [Entitic vol] Ordered By: Allison Leo on 10-22-2024 MCV (RBC) [Entitic vol] 89.9 fL 80.0-94.0 [facility] No Panel InformationOrdered By: Nicci Severino on 10-22-2024 Absolute Basophils (Manual) 0.00 10 3/uL 0.00-0.10 [facility] Eosinophils # (Manual) 0.18 10 3/uL 0.00-0.70 [facility] Lymphocytes # (Manual) 3.57 10 3/uL 1.20-3.80 [facility] Monocytes # (Manual) 2.63 10 3/uL High 0.30-0.80 [facility] Segmented Neutrophils # (Manual) 12.40 10 3/uL High 1.4-6.5 [facility] Troponin I High Sensitivity 10.0 pg/mL 4.0-76.1 [facility] Comment on above: CUT-OFF POINTS HAVE BEEN ESTABLISHED BASED ON THE FOURTHUNIVERSAL DEFINITION OF MYOCARDIAL INFARCTION. THE UPPERREFERENCE LIMIT (URL) OF TROPONIN, DEFINED THE 99THPERCENTILE OF cTnI DISTRIBUTION IN A REFERENCE POPULATION,HAS BEEN CONFIRMED THE DECISION THRESHOLD FOR MIDIAGNOSIS.99TH PERCENTILE = 76.2 PG/MLNOTE: HIGH-SENSITIVITY TROPONIN ASSAY IS NOT INTENDED TO BEUSED IN ISOLATION BUT SHOULD BE INTERPRETED IN CONJUNCTIONWITH OTHER DIAGNOSTIC AND CLINICAL INFORMATION. Platelet mean volume Auto (B ld) [Entitic vol]Ordered By: Allison Leo on 10-22-2024 Platelet mean volume (Bld) [Entitic vol] 11.4 fL 9.5-13.5 [facility] Platelets Auto (Bld) [#/Vol] Ordered By: Allison Leo on 10-22-2024 Platelets (Bld) [#/Vol] 211 10 3/uL 150-450 [facility] RBC Auto (Bld) [#/Vol]Ordere d By: Allison Leo on 10-22-2024 RBC (Bld) [#/Vol] 6.15 10 6/uL High 4.70-6.10 [facility] Segmented neutrophils/100 WB C Manual cnt (Bld)Ordered By: Nicci Severino on 10-22-2024 Segmented neutrophils/100 WBC (Bld) 66.0 % 43.0-75.0 [facility] Serum or plasma albumin/glob ulin mass ratioOrdered By: Nicci Severino on 10-22-2024 Albumin/Globulin [Mass ratio] 0.9 {ratio} [facility] Serum or plasma anion gap de terminationOrdered By: Nicci Severino on 10-22-2024 Anion gap [Moles/Vol] 19.0 mmol/L [facility] Telephone Encounteron 2024 Front Man Authentication Interface Message Text Patient sent a second request for oxycodone in MyChart 07/25/2024. Normal [facility] Anesthesia Postprocedure Akosua luationon 07-23-2024 Front Man Authentication Interface Message Text Anesthesia Postoperative Assessment: [...] [facility] Anesthesia Preprocedure Eval uationon 07-23-2024 Front Man Authentication Interface Message Text ASA: 2 No [...] were discussed with the patient and/or legal service support representative. The risks, benefits and alternatives were reviewed. Questions regarding anesthesia were answered. Patient and/or legal service support representative knows such anesthetics and procedures may be performed by Resident physicians, Certified Anesthesiologist Assistants, or Certified Nurse Anesthetists under the supervision of a physician. The patient /or the patient's legal service support representative agree with the plan for anesthesia. MHPATFORM Normal [email or web address] Anesthesia Transfer Of Careo n 07-23-2024 Front Man Authentication Interface Message Text Patient taken to [...] Cely Puente MD Anesthesiologist: Salinas Saldaña MD CREPE LAMINATOR OPERATOR: Jessica Aguilar APRN-LAUREN Anesthesia Student: Carolina Tamez REMOVAL, HARDWARE, HAND [...] report was received. JAYLIN Carranza Normal [facility] Brief Operative Noteon 07-23 Front Man Authentication Interface Message Text Brief Operative Note BV OR 1 Tu Casiano 28 year old male Surgical Contact Serial Number: [id number] Preoperative Diagnosis: Pre-op Diagnosis * Traumatic amputation of finger, initial encounter [S68.119A] * Hand laceration involving tendon, right, subsequent encounter [S61.411D, S66.921D] Postoperative Diagnosis: * Traumatic amputation of finger, initial encounter [S68.119A] * Hand laceration involving tendon, right, subsequent encounter [S61.411D, S66.921D] Procedures: Right small finger hardware removal Surgeon(s): Surgeon(s): Cely Puente MD Staff: Scrub: Maryam Mao Scrub Nurse Nurse: Lidya Williamson RN Cigar Head Puncher: Emelina Diego DO; Cristopher Kaur DMD, MD Anesthesia: Consult Anesthesiologist: Salinas Saldaña MD CREPE LAMINATOR OPERATOR: Jessica Aguilar APRN-CRNA Anesthesia Student: Carolina Tamez [...] Diego DO 07/23/2024 2:21 PM Normal [facility] OP Noteon 07-23-2024 Front Man Authentication Interface Message Text OPERATIVE NOTE Plastic Surgery Name: Tu Casiano CSN: [id number] Surgical Age: [age] year old Date of [...] Care Complete Surgeon(s): Primary: Cely Puente MD Global Account Director Surgeon: Scrub: Maryam Mao Scrub Nurse Nurse: Lidya Williamson RN Cigar Head Puncher: Emelina Diego DO; Cristopher Kaur DMD, MD Pre-Op Diagnosis: Pre-op Diagnosis * Traumatic amputation of finger, initial encounter [S68.119A] * Hand laceration involving tendon, right, subsequent encounter [S61.411D, S66.921D] Post-op Diagnosis * Traumatic amputation of finger, initial encounter [S68.119A] * Hand laceration involving tendon, right, subsequent encounter [S61.411D, S66.921D] Post Op Diagnosis: Same as preoperative diagnosis. [...] the procedure. Emelina Diego, DO Normal [facility] PAT Call Historyon Front Man Authentication Interface Message Text Telephone History Tu Casiano, [id number] 07/22/2024 Patient was identified by name and [...] procedure with Dr. Puente on 07/23/24 at [facility] ED Visit (05/30/2024) Partial Note- Hand injury/table [...] 5th digit. Patient was transferred here from [facility] for surgical consultation. A/P 28-year-old male with a past medical history listed above who presents to the emergency department as a transfer from [facility] for hand surgery consult. On initial presentation [...] and pain control prior to evaluation at [facility]. Hand surgery was consulted, evaluated the [...] inc (more content not included)... Normal [facility] Telephone Encounteron 2024 Front Man Authentication Interface Message Text Pt called to check status of refill request. Normal [facility] XR FINGERS RIGHT 3 VIEWSon 0 [...] loosening. Right finger MACRO: None Normal [facility] XR Finger - right Viewson EXAMINATION: XR FINGERS RIGHT 3 VIEWSPRO/RT/Right Fifth [...] signs of loosening. Right finger MACRO: None RADIOLOGY Daniel Rosado MD - 07/11/2024 EXAMINATION: XR FINGERS RIGHT 3 VIEWSPRO/RT/Right Fifth [...] signs of loosening. Right finger MACRO: None [facility] XR Finger - right ViewsOrder ed By: Daniel Rosado on 07-11-2024 [facility] Work Phone: Progress Noteson 07-09-2024 Front Man Authentication Interface Message Text Post Operative Visit [...] Nick PA-C 07/09/24 2:10 PM Normal [facility] [employer] Front Man Authentication Interface Message Text OCCUPATIONAL THERAPY HAND TREATMENT Patient left without being seen. No skilled OT provided. Federico Galeana, OTR/L, CHT Normal [facility] XR Finger - right Viewson Radiology Study observation (narrative) [facility] Progress Noteson 06-23-2024 Front Man Authentication Interface Message Text Post Operative Visit [...] Nick PA-C 06/23/24 12:25 PM Normal [facility] Front Man Authentication Interface Message Text OCCUPATIONAL THERAPY HAND TREATMENT Visit #: 3 Referred to Occupational Therapy for evaluation and treatment. Referring Provider: Charlene Nick PA-C DIAGNOSIS: Right SF open fracture dislocation and extensor tendon laceration and R MF distal phalanx amputation. PROCEDURES 06/09/24 (Rica): 1. R MF revision amputation at the [...] SUPERMED PPO/CLASSIC/PLUS / Product Type: PPO Tu Casiano [...] updated medication list. 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 Identification [...] Stat (more content not included)... Normal [facility] Progress Noteson 06-15-2024 Front Man Authentication Interface Message Text Post Operative Visit Date of Surgery: 06/09/2024 Surgery(s) performed: 1. Right middle finger revision amputation at the level of distal portion of the middle phalanx. 2. Fixation of the extensor tendon at 2 different places, in central slip and also zone 5. 3. Open reduction of the PIP dislocation fracture. Surgeon: Christoph Puente MD Pain (0-10): 02/04 Other Complaints: Patient continues to be concerned [...] The patient stated understanding and agreement. Charlene iNck PA-C 06/15/24 12:15 PM Normal [facility] [employer] Front Man Authentication Interface Message Text OCCUPATIONAL THERAPY HAND TREATMENT Visit #: 2 Referred to Occupational Therapy for evaluation and treatment. Referring Provider: Charlene Nick PA-C DIAGNOSIS: Right SF open fracture dislocation and extensor tendon laceration and R MF distal phalanx amputation. PROCEDURES 06/09/24 (Rica): 1. R MF revision amputation at the [...] SUPERMED PPO/CLASSIC/PLUS / Product Type: PPO Tu Casiano [...] updated medication list. 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 Identification [...] Pt (more content not included)... Normal [facility] Telephone Encounteron 2024 Front Man Authentication Interface Message Text Spoke to patient about [...] Offered to see him in clinic at [place] location for in person assessment and possible splint [...] Stevie Glasgow, PGY4 Plastic Surgery Normal [facility] Front Man Authentication Interface Message Text Complaint: Returned patient [...] patient complaints, Instructed patient to come to [facility] today to be seen. Pt declined appointment, [...] expecting a call from him. Normal [facility] Front Man Authentication Interface Message Text Please call pt. His pain is unbearable. Normal [facility] Telephone Encounteron 2024 Front Man Authentication Interface Message Text Spoke with pt [...] be permitted. Pt verbalized understanding. Normal [facility] Front Man Authentication Interface Message Text Pt calling to request a different pain med. States was not able to sleep due to pain last night. Please call. Normal [facility] Anesthesia Postprocedure Akosua luationon 06-09-2024 Front Man Authentication Interface Message Text Anesthesia Postoperative Assessment: [...] EVENTS: No notable events documented. Normal [facility] Anesthesia Preprocedure Eval uationon 06-09-2024 Front Man Authentication Interface Message Text ASA: 2 No [...] were discussed with the patient and/or legal service support representative. The risks, benefits and alternatives were reviewed. Questions regarding anesthesia were answered. Patient and/or legal service support representative knows such anesthetics and procedures may be performed by Resident physicians, Certified Anesthesiologist Assistants, or Certified Nurse Anesthetists under the supervision of a physician. The patient /or the patient's legal service support representative agree with the plan for anesthesia. MHPATFORM Normal [facility] Anesthesia Transfer Of Careo n 06-09-2024 Front Man Authentication Interface Message Text Patient taken to [...] laceration involving tendon, right, subsequent encounter [S61.411D, S66.111D] Current smoker [F17.200] Fracture of cervical vertebra (HCC) [S12.9XXA] Gouty arthritis of right ankle [M10.9] Open fracture of middle phalanx of finger [S62.669B] Past Surgical History: Review of patient's past surgical history indicates: TONSILLECTOMY 2012 CIRCUMCISION Allergies: Patient has no known allergies. Basic Operating Room Facts: Surgeon(s): Cely Puente MD Anesthesiologist: Sulaiman Nam MD; Js Gonzalez MD CAA: Augie Guevara CAA CREPE LAMINATOR OPERATOR: Mary Chan APRN-CRNA Anesthesia Student: Renetta Maher [...] of understanding of the report was received. Mary Chan APRN-CREPE LAMINATOR OPERATOR Normal [facility] Blood Attestationon 06-09-19 Front Man Authentication Interface Message Text Blood Attestation: ATTESTATION OF INFORMED CONSENT FOR BLOOD: The transfusion of blood and/or blood components were discussed with the patient and/or legal service support representative. The risks, benefits and alternatives were reviewed. Questions regarding blood transfusions were answered. The patient /or the patient's legal service support representative agree with the plan for transfusion of blood and/or blood components. Normal [facility] Brief Operative Noteon 06-09 Front Man Authentication Interface Message Text Brief Op Note Surgical Name: Tu Casiano CSN: [id number] Age: [age] year old Date of : 1995 Preoperative diagnosis(es): Pre-op Diagnosis * Hand laceration involving tendon, right, subsequent encounter [V99.627T, M00.294Z] Postoperative diagnosis(es): Same Procedure(s): REPAIR, TENDON, EXTENSOR REDUCTION, OPEN, HAND Surgeon: Cely Puente MD Global Account Director surgeon: Dr. Matta Anesthesia: General Specimen(s): * [...] Puente MD 06/09/2024 3:13 PM Normal [facility] OP Noteon 06-09-2024 Front Man Authentication Interface Message Text Name: TU CASIANO I MR#: [id number] ENC#: [id number] Date of Procedure: 06/09/2024 ATTENDING SURGEON: Christoph Puente MD WAREHOUSE STOCKER: Dr. Matta PREOPERATIVE DIAGNOSES: Right hand small [...] SAT/MedQ/Dict: 06/09/2024 15:21:21 TRANS: 06/09/2024 15:42:55 JOB: [id number] DictJob#: [id number] Normal [facility] Progress Noteson 06-09-2024 Front Man Authentication Interface Message Text Dr. Golden at [...] with instructions and home prescriptions. Normal [facility] US GUIDANCE NEEDLE PLACEMENT on 06-09-2024 US GUIDANCE NEEDLE PLACEMENT Narrative AND Impression EXAMINATION: US GUIDANCE NEEDLE PLACEMENT CLINICAL HISTORY: peripheral nerve block IMPRESSION: : Technical services were performed by the department of Anesthesia. Please see the Procedure note for interpretation. Please refer to the patient's chart for the results of the procedure and ultrasound. Normal [facility] US Guidance for placement of needle in Unspecified body regionon 06-09-2024 : Technical services were performed by the department of Anesthesia. Please see the Procedure note for interpretation. Please refer to the patient's chart for the results of the procedure and ultrasound. [facility] Narrative & Impression EXAMINATION: US GUIDANCE NEEDLE PLACEMENT CLINICAL HISTORY: peripheral nerve block [facility] Radiology Study observation (narrative) [facility] US Guidance for placement of needle in Unspecified body regionOrdered By: Laila Golden on 06-09-2024 [facility] Work Phone: Assessment AND Plan Noteon 0 06-02-2024 Front Man Authentication Interface Message Text - Dressings removed. - Discussed upcoming surgery, risks, benefits, prognosis, and outcomes. - Dressings placed today: bacitracin, adaptic, gauze, PHU. - OT today for splinting. Maintain splint until surgery. - Pain medication refilled. - Follow up one week post operatively. Normal [facility] Progress Noteson 06-02-2024 Front Man Authentication Interface Message Text Opened in error. Normal [facility] Front Man Authentication Interface Message Text Chief Complaint: Right [...] laceration involving tendon, right, subsequent encounter [S61.411D, S66.901D] Current smoker [F17.200] Fracture of cervical vertebra (HCC) [S12.9XXA] Gouty arthritis of right ankle [M10.9] Open fracture of middle phalanx of finger [S66.984B] Family History: No family history on file. [...] Nick PA-C 06/02/24 12:06 PM Normal [facility] PAT Call Historyon Front Man Authentication Interface Message Text Telephone History Tu Johnson, [id number] 06/01/2024 28 year old 255 lbs 6' [...] surgery or procedure with anesthesia scheduled at [facility] ED Visit (05/30/2024) Partial Note- Hand injury/table [...] 5th digit. Patient was transferred here from [facility] for surgical consultation. A/P 28-year-old male with a past medical history listed above who presents to the emergency department as a transfer from [facility] for hand surgery consult. On initial presentation [...] and pain control prior to evaluation at [facility]. 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 Normal [facility] Telephone Encounteron 2024 Front Man Authentication Interface Message Text Spoke with pt [...] POC. Preferred pharmacy for oxycodone refill is [facility] in [facility]. Current rx ends 2/5-pt aware we might not be able to fill until 2/6 based on frequency of rx. Normal [facility] Front Man Authentication Interface Message Text Please call patient in regards to pain medication refill. Pain meds now not working so good. Please call patient TONY they run out of meds by tomorrow. [phone] Normal [facility] Addendum Noteon 05-30-2024 Front Man Authentication Interface Message Text Addended by: CHARLENE NICK on: 05/30/2024 12:19 PM Modules accepted: Orders Normal [facility] BASIC METABOLIC PANELon Anion gap [Moles/Vol] 18 mmol/L Normal 10-20 [facility] Comment on above: Performed By: #### C H8 #### [facility] [address] [place] [address], Calcium [Mass/Vol] 9.4 mg/dL Normal 8.6-10.3 [facility] Comment on above: Performed By: #### C H8 #### [facility] [address] [place] [address], Chloride [Moles/Vol] 104 mmol/L Normal 98-107 [facility] Comment on above: Performed By: #### C H8 #### [facility] [address] [place] [address], CO2 [Moles/Vol] 26 mmol/L Normal 21-31 [facility] Comment on above: Performed By: #### C H8 #### [facility] [address] [place] [address], Creatinine [Mass/Vol] 0.76 mg/dL Normal 0.70-1.30 [facility] Comment on above: Performed By: #### C H8 #### [facility] [address] [place] [address], ESTIMATED GFR (CKD-EPI) 127 mL/min/1.73sqm Normal >=60 [facility] Comment on above: Result Comment: 2020 [...] Inclusion of Race in Diagnosing Kidney Disease. [place] Journal of Kidney Diseases 2021;79(2):268-88.e1. 2. N Engl J Med 1 Vol. 385 Issue 19 Pages 6199-8545 Performed By: #### C H8 #### [facility] [address] [place], [place], Glucose [Mass/Vol] 130 mg/dL High 74-109 [facility] Comment on above: Performed By: #### C H8 #### [facility] [address] [place], [place], Potassium [Moles/Vol] 4.1 mmol/L Normal 3.5-5.0 [facility] Comment on above: Performed By: #### C H8 #### [facility] [address] [place], [place], Sodium [Moles/Vol] 144 mmol/L Normal 136-145 [facility] Comment on above: Performed By: #### C H8 #### [facility] [address] [place] [address], Urea nitrogen [Mass/Vol] 6 mg/dL Low 7-25 [facility] Comment on above: Performed By: #### C H8 #### [facility] [address] [place], [address] Basic metabolic 2000 panelon 05-30-2024 Anion gap [Moles/Vol] 18 mmol/L 10 - 20 [facility] Calcium [Mass/Vol] 9.4 mg/dL 8.6 - 10. 3 mg/dL [facility] Chloride [Moles/Vol] 104 mmol/L 98 - 10 7 mmol/L [facility] CO2 [Moles/Vol] 26 mmol/L 21 - 31 mmol/L [facility] Creatinine [Mass/Vol] 0.76 mg/dL 0.70 - 1.30 mg/dL [facility] GFR/1.73 sq M.predicted CKD-EPI (S/P/Bld) [Vol rate/Area] 127 - PINF [facility] Comment on above: 2020 CKD EPI Equatio n using Creatinine without Race Comment: Estimated glomerular filtration rate (eGFR) is calculated without a race coefficient. Values should be interpreted in the context of the patient's full clinical presentation. Reference: 1. Damion C, Bakeiry M, Daily DC, et al.. A Unifying Approach for GFR Estimation: Recommendations of the NKF-ASN Task Force on Reassessing the Inclusion of Race in Diagnosing Kidney Disease. [place] Journal of Kidney Diseases 202;79(2):268-88.e1. 2. N Engl J Med 2020 Vol. 385 Issue 19 Pages 3910-2468 Glucose [Mass/Vol] 130 mg/dL High 74 - 109 mg/dL [facility] Interpretation and review of laboratory results Abnormal [facility] Potassium [Moles/Vol] 4.1 mmol/L 3.5 - 5.0 mmol/L [facility] Sodium [Moles/Vol] 144 mmol/L 136 - 145 mmol/L [facility] Urea nitrogen [Mass/Vol] 6 mg/dL Low 7 - 25 mg/dL [facility] CBC WITH DIFFERENTIALon Basophils (Bld) [#/Vol] 0.1 10*3/uL 0.00 - [...] 17.4 g/dL High 13.9 - 16.3 g/dL [facility] Interpretation and review of laboratory results Abnormal [...] (Bld) [#/Vol] 0.10 10*3/uL Normal 0.00-0.20 [facility] Comment on above: Performed By: #### C BCDSAT ####[facility] [id number] [place], [place], Basophils/100 WBC (Bld) 0.9 % Normal <=1.9 T [facility] Comment on above: Performed By: #### C BCDSAT ####[facility] [id number] [place] [address], Eosinophils (Bld) [#/Vol] 0.06 10*3/uL Normal 0.00-0.70 [facility] Comment on above: Performed By: #### C BCDSAT ####[facility] [id number] [place], [place], Eosinophils/100 WBC (Bld) 0.5 % Normal 0.1-4.0 [facility] Comment on above: Performed By: #### C BCDSAT ####[facility] [id number] [place], [place], Erythrocyte distribution width (RBC) [Ratio] 13.1 % Normal 11.5-14.5 [facility] Comment on above: Performed By: #### C BCDSAT ####[facility] [id number] [place], [place], Hematocrit (Bld) [Volume fraction] 50.4 % Normal 41.0-53.0 [facility] Comment on above: Performed By: #### C BCDSAT ####[facility] [id number] [place], [place], Hemoglobin (Bld) [Mass/Vol] 17.4 g/dL High 13.9-16.3 [facility] Comment on above: Performed By: #### C BCDSAT ####[facility] [id number] [place], [place], Lymphocytes (Bld) [#/Vol] 3.64 10*3/uL Normal 1.00-4.80 [facility] Comment on above: Performed By: #### C BCDSAT ####[facility] [id number] [place], [place], Lymphocytes/100 WBC (Bld) 33.3 % Normal 24.0-44.0 [facility] Comment on above: Performed By: #### C BCDSAT ####[facility] [id number] [place], [place], MCH (RBC) [Entitic mass] 33.1 pg Normal 26.0-34.0 The [facility] Comment on above: Performed By: #### C BCDSAT ####[facility] [id number] [place], [place], MCHC (RBC) [Mass/Vol] 34.5 g/dL Normal 32.0-35.9 [facility] Comment on above: Performed By: #### C BCDSAT ####[facility] [id number] [place], [place], MCV (RBC) [Entitic vol] 96 fL Normal 80-100 T [facility] Comment on above: Performed By: #### C BCDSAT ####[facility] [id number] [place], MONOCYTE DISTRIBUTION WIDTH 20 Normal <=20 [facility] Comment on above: Performed By: #### C BCDSAT ####[facility] [id number] [place], Monocytes (Bld) [#/Vol] 0.75 10*3/uL Normal 0.20-1.00 [facility] Comment on above: Performed By: #### C BCDSAT ####[facility] [id number] [place], [place], Monocytes/100 WBC (Bld) 6.9 % Normal 2.0-11.0 T [facility] Comment on above: Performed By: #### C BCDSAT ####[facility] [id number] [place], Neutrophils (Bld) [#/Vol] 6.38 10*3/uL Normal 1.50-8.00 The [facility] Comment on above: Performed By: #### C BCDSAT ####[facility] [id number] [place], [place], Neutrophils/100 WBC (Bld) 58.4 % Normal 31.0-76.0 The [facility] Comment on above: Performed By: #### C BCDSAT ####[facility] [id number] [place], [place], Platelet mean volume (Bld) [Entitic vol] 9.4 fL Normal 7.5-11.2 The [facility] Comment on above: Performed By: #### C BCDSAT ####[facility] [id number] [place], [place], Platelets (Bld) [#/Vol] 200 10*3/uL Normal 150-400 [facility] Comment on above: Performed By: #### C LACHODSAT ####[facility] [id number] [place], RBC (Bld) [#/Vol] 5.25 10*6/uL Normal 4.50-5.90 The [facility] Comment on above: Performed By: #### C BCDSAT ####S PATHOLOGY [id number] [place], WBC (Bld) [#/Vol] 10.9 10*3/uL Normal 4.5-11.5 The [facility] Comment on above: Performed By: #### Cielo BCDSAT ####[facility] [id number] [place], [place], Consultson 05-30-2024 Front Man Authentication Interface Message Text PLASTIC SURGERY HAND [...] where decision was made to transfer to [facility]. The patient reports pain 10/10pm right [...] Xeroform (more content not included)... Normal [facility] ED Clinical Summaryon 2024 ED Clinical Summary ED Clinical Summary [place] [id number] ED Clinical Summary Person Information Name: TU CASIANO I [place] Age: 28 Years : 1995 Sex: Male Language: Stateless PCP: NAHOMI CORRALES CNP Marital Status: Single Phone: [phone] MRN: [id number] Visit Id: Visit Reason: Hand pain-swelling; Finger [...] 05/30/2024 00:10:36 05/30/2024 00:10:36 05/30/2024 00:10:36 ADDRESS: [address] [place] [phone] PHYS DOC NOTES: MEDICAL INFORMATION: Prescriptions Given: [...] phalanx of finger of right hand Normal [facility] ED Patient Education Noteon 05-30-2024 ED Patient Education Note ED Patient Education Note Normal [facility] ED Patient Summaryon ED Patient Summary ED Patient Summary [address] [address] Patient Discharge Instructions Person Information Name: TU CASIANO I Age: 28 Years Arrival Date: 05/29/2024 21:25:29 Discharge Diagnosis: Open displaced fracture of middle phalanx of finger of right hand Primary Care Physician: NAHOMI CORRALES CNP Provider Information Primary Provider: Claudia Sierra DO [facility] Counselor:None The exam and treatment you received in the Emergency Department were for an urgent problem and are not intended as complete care. It is important that you follow up with a doctor, nurse practitioner, or physician???s advertising assistant for ongoing care. If your symptoms [...] opioids can be used to help relieve dehndcfz-fj-jeqyjl pain and are often prescribed following a [...] be struggling with addiction, tell your health pharmacist critical care and ask for guidance or call [facility]???S National Helpline at 2-024-622-HELP. v Source: Department of [facility] (more content not included)... Normal [facility] ED Provider Karthikeyanon 05-30-19 25 Front Man Authentication Interface Message Text EMERGENCY DEPARTMENT - VISIT NOTE HISTORY OF PRESENT ILLNESS ------ Chief Complaint Patient presents with Hand/finger symptoms Hand injury from a table saw, sent from [facility] Perforator: not needed - patient preferred language is Stateless. The history is provided by the Patient. [...] 5th digit. Patient was transferred here from [facility] for surgical consultation. On chart review, patient [...] the emergency department as a transfer from [facility] for hand surgery consult. On initial presentation [...] and pain control prior to evaluation at [facility]. Hand surgery was consulted, evaluated the [...] importanc (more content not included)... Normal [facility] No Panel Informationon 05-30 Interpretation and review of laboratory results Normal [facility] PARTIAL THROMBOPLASTIN TIMEo n 05-30-2024 aPTT Coag (Bld) [Time] 30 s [facility] aPTT Coag (Bld) [Time] 30 s Normal 25-37 Th e [facility] Comment on above: Performed By: #### A PTT, PT ####[facility] [id number] [place], [place], PROTHROMBIN TIME AND INRon 0 05-30-2024 INR Coag (PPP) [Relative time] 1.04 {INR} 0.90 - 1.10 [facility] PT Coag (PPP) [Time] 11.6 s [facility] INR Coag (PPP) [Relative time] 1.04 {INR} Normal 0.90-1.10 [facility] Comment on above: Performed By: #### A PTT, PT ####[facility] [id number] [place], PT Coag (PPP) [Time] 11.6 s Normal 9.7-12.9 [facility] Comment on above: Performed By: #### A PTT, PT ####[facility] [id number] [place], [place], TYPE AND SCREENon 05-30-2024 ABO and Rh group Nom (Bld) Blood group O Rh(D) positive [facility] ABO and Rh group Nom (Bld) No Previous Results [facility] Blood group antibody screen Ql Negative [facility] ABO and Rh group Nom (Bld) Blood group O Rh(D) positive Normal [facility] Comment on above: Performed By: #### T S #### [facility] [address] [place], [place], ABO and Rh group Nom (Bld) No Previous Results Normal [facility] Comment on above: Performed By: #### T S #### S [facility] [address] [place], [place], ABSC INT Negative Normal [facility] Comment on above: Performed By: #### T S #### [facility] [address] [place], [place], XR HAND RIGHT 2 VIEWSon XR HAND RIGHT 2 VIEWS EXAMINATION: XR ROOT ND RIGHT 2 VIEWSPRO/RT 05/30/2024 05:36 AM CLINICAL [...] agree with the resident's interpretation. Normal [facility] XR Hand - right 2 Viewson [...] images and agree with the resident's interpretation. [facility] Radiology Study observation (narrative) [facility] XR Hand - right 2 ViewsOrder ed By: German Pagan on 05-30-2024 [facility] Work Phone: XR Hand 3+ Views Righton [...] MD Transcribed by: NANDA Technologist: JC Tee [facility] ED Note-Physicianon 05-29-19 ED Note-Physician ED Note-Physician Basic Information Time Seen: Claudia Sierra DO 05/29/2024 21:38 Chief Complaint pt was using saw and cut right third and fifth finger. pt needs tdap. bleeding controlled. History of Present Illness Patient is a 28-year-old male puzjg-yfud-ywpnwmsy presenting to the ED for evaluation of [...] and Complexity of Problems Differential Diagnosis: [] [facility] Data External documents reviewed: [] My [...] is accepted as a trauma transfer to [facility]. Shared decision making: [] Code status: [] [...] Discharge Condition Fair Discharge Disposition Transfer to [facility] Discharge Prescription List Prescriptions No active prescription [...] use i (more content not included)... Normal [facility] Comment on above: Result Comment: Elec tronically Signed By: Claudia Sierra DO\.br\Date and Time Signed: 05/29/24 22:33 EST Registrationon 09-26-2023 Registration [id number] Normal [facility] Vital Signs Date Time Vital Sign Value Performing Clinician Facility 10-25-2024 14:58-0400 Body height 182.88 cm Allison Leo APRN Work Phone: [facility] 10-25-2024 12:06-0400 Diastolic blood pressure 82 mm[Hg] Allison Lópezalexis MICROBIOLOGY INSTRUCTOR Work Phone: [facility] 10-25-2024 12:06-0400 Heart rate 72 /min Allison Quintanillamarcela MICROBIOLOGY INSTRUCTOR Work Phone: [facility] 10-25-2024 12:06-0400 Respiratory rate 16 /min Allison Lópezleathalincolnmarcela MICROBIOLOGY INSTRUCTOR Work Phone: [facility] 10-25-2024 12:06-0400 SaO2% (BldA) [Mass fraction] 95 % Allison Quintanillamarcela MICROBIOLOGY INSTRUCTOR Work Phone: [facility] 10-25-2024 12:06-0400 Systolic blood pressure 150 mm[Hg] Allison Quintanillamarcela MICROBIOLOGY INSTRUCTOR Work Phone: [facility] 10-25-2024 08:00-0400 Body temperature 97.9 [degF] Allison Quintanillamarcela MICROBIOLOGY INSTRUCTOR Work Phone: [facility] 10-25-2024 06:00-0400 Body weight 113 kg Allison Leo MICROBIOLOGY INSTRUCTOR Work Phone: [facility] 10-05-2024 10:14-0400 Body height 182.[address] [facility] 10-05-2024 10:14-0400 Body mass index (BMI) [Ratio] 34 kg/m2 [facility] 10-05-2024 10:14-0400 Body temperature 97.3 [degF] [facility] 10-05-2024 10:14-0400 Body weight 113.[address] [facility] 10-05-2024 10:14-0400 Diastolic blood pressure 84 mm[Hg] [facility] 10-05-2024 10:14-0400 Heart rate 90 /min [facility] 10-05-2024 10:14-0400 SaO2% (BldA) [Mass fraction] 95 % [facility] 10-05-2024 10:14-0400 Systolic blood pressure 134 mm[Hg] [facility] 09-06-2024 09:44-0400 Body height 182.[address] [facility] 09-06-2024 09:44-0400 Body mass index (BMI) [Ratio] 34.5 kg/m2 [facility] 09-06-2024 09:44-0400 Body temperature 96.3 [degF] [facility] 09-06-2024 09:44-0400 Body weight 115.[address] [facility] 09-06-2024 09:44-0400 Diastolic blood pressure 92 mm[Hg] [facility] 09-06-2024 09:44-0400 Heart rate 87 /min [facility] 09-06-2024 09:44-0400 SaO2% (BldA) [Mass fraction] 94 % [facility] 09-06-2024 09:44-0400 Systolic blood pressure 140 mm[Hg] [facility] 07-23-2024 15:00-0400 Diastolic blood pressure 96 mm[Hg] Cely Puente MD [facility] 07-23-2024 15:00-0400 Heart rate 58 /min Cely Puente MD Work Phone: [employer] 07-23-2024 15:00-0400 Respiratory rate 11 /min Cely Puente MD Work Phone: [facility] 07-23-2024 15:00-0400 SaO2% (BldA) [Mass fraction] 95 % Cely Puente MD Work Phone: [facility] 07-23-2024 15:00-0400 Systolic blood pressure 158 mm[Hg] Cely Puente MD Work Phone: [facility] 07-23-2024 14:25-0400 Body temperature 97.11 [degF] Cely Puente MD Work Phone: [facility] 07-23-2024 12:31-0400 Body height 182.9 cm Cely Puente MD Work Phone: [facility] 07-23-2024 12:31-0400 Body mass index (BMI) [Ratio] 33.91 kg/m2 Cely Puente MD Work Phone: [facility] 07-23-2024 12:31-0400 Body weight 113.4 kg Cely Puente MD Work Phone: [facility] 06-09-2024 17:13-0500 Body temperature 98.1 [degF] Cely Puente MD Work Phone: [facility] 06-09-2024 17:13-0500 Diastolic blood pressure 100 mm[Hg] Cely Puente MD Work Phone: [facility] 06-09-2024 17:13-0500 Heart rate 69 /min Cely Puente MD Work Phone: [facility] 06-09-2024 17:13-0500 Respiratory rate 20 /min Cely Puente MD Work Phone: [facility] 06-09-2024 17:13-0500 SaO2% (BldA) [Mass fraction] 93 % Cely Puente MD Work Phone: [facility] 06-09-2024 17:13-0500 Systolic blood pressure 151 mm[Hg] Cely Puente MD Work Phone: [facility] 06-09-2024 10:57-0500 Body height 182.9 cm Cely Puente MD Work Phone: [facility] 06-09-2024 10:57-0500 Body mass index (BMI) [Ratio] 34.58 kg/m2 Cely Puente MD Work Phone: [facility] 06-09-2024 10:57-0500 Body weight 115.67 kg Cely Puente MD Work Phone: [facility] 06-01-2024 08:00-0500 Body height 182.9 cm Elma Parra RN [facility] 06-01-2024 08:00-0500 Body mass index (BMI) [Ratio] 34.58 kg/m2 Elma Parra RN [facility] 06-01-2024 08:00-0500 Body weight 115.67 kg Elma Alegriablanca RN [facility] 05-30-2024 01:34-0500 Body temperature 97.7 [degF] Leonardo Roberts MD Work Phone: [facility] 05-30-2024 01:34-0500 Diastolic blood pressure 114 mm[Hg] Leonardo Roberts MD Work Phone: [facility] 05-30-2024 01:34-0500 Heart rate 100 /min Leonardo Roberts MD Work Phone: [facility] 05-30-2024 01:34-0500 Respiratory rate 16 /min Leonardo Roberts MD Work Phone: [facility] 05-30-2024 01:34-0500 SaO2% (BldA) [Mass fraction] 93 % Leonardo Roberts MD Work Phone: [facility] 05-30-2024 01:34-0500 Systolic blood pressure 158 mm[Hg] Leonardo Roberts MD Work Phone: [facility] 05-30-2024 00:03-0500 Diastolic blood pressure 122 mm[Hg] Kaylinn Dokken [facility] 05-30-2024 00:03-0500 Heart rate 105 /min Kaylinn Dokken [facility] 05-30-2024 00:03-0500 Mean blood pressure 140 mm[Hg] Kaylinn Dokken [facility] 05-30-2024 00:03-0500 Respiratory rate 22 /min Kaylinn Dokken [facility] 05-30-2024 00:03-0500 SaO2% (BldA) [Mass fraction] 95 % Kaylinn Dokken [facility] 05-30-2024 00:03-0500 Systolic blood pressure 177 mm[Hg] Kaylinn Dokken [facility] 05-29-2024 23:38-0500 Body temperature 98.96 [degF] Kaylinn Dokken [facility] 05-29-2024 23:38-0500 Diastolic blood pressure 109 mm[Hg] Kaylinn Dokken [facility] 05-29-2024 23:38-0500 Heart rate 98 /min Kaylinn Dokken [facility] 05-29-2024 23:38-0500 Mean blood pressure 124 mm[Hg] Kaylinn Dokken [facility] 05-29-2024 23:38-0500 Respiratory rate 22 /min Kaylinn Dokken [facility] 05-29-2024 23:38-0500 SaO2% (BldA) [Mass fraction] 95 % Kaylinn Dokken [facility] 05-29-2024 23:38-0500 Systolic blood pressure 155 mm[Hg] Kaylinn Dokken [facility] 05-29-2024 23:08-0500 Diastolic blood pressure 120 mm[Hg] Kaylinn Dokken [facility] 05-29-2024 23:08-0500 Heart rate 93 /min Kaylinn Dokken [facility] 05-29-2024 23:08-0500 Mean blood pressure 134 mm[Hg] Kaylinn Dokken [facility] 05-29-2024 23:08-0500 Respiratory rate 20 /min Kaylinn Dokken [facility] 05-29-2024 23:08-0500 SaO2% (BldA) [Mass fraction] 95 % Claudia Sierra [facility] 05-29-2024 23:08-0500 Systolic blood pressure 162 mm[Hg] Claudia Sierra [facility] 05-29-2024 21:58-0500 Body temperature 98.96 [degF] Claudia Sierra [facility] 05-29-2024 21:38-0500 Body temperature 98.96 [degF] Claudia Sierra [facility] 05-29-2024 21:38-0500 Heart rate 112 /min Claudia Sierra [facility] 04-06-2023 11:05-0500 Body height 177.8 cm Elizabeth Lowrymond Other [employer] [facility] 04-06-2023 11:05-0500 Body mass index (BMI) [Ratio] 32.48 kg/m2 Elizabeth Aimee Other [employer] [facility] 04-06-2023 11:05-0500 Body temperature 98.7 [degF] Elizabeth Lowrymond Other [employer] 04-06-2023 11:05-0500 Body weight 102.7 kg Elizabeth Lowrymond Other [employer] Other 04-06-2023 11:05-0500 Diastolic blood pressure 110 mm[Hg] Elizabeth Aimee Other [employer] [facility] 04-06-2023 11:05-0500 Respiratory rate 18 /min Elizabeth Yu Other [employer] [facility] 04-06-2023 11:05-0500 SaO2% (BldA) [Mass fraction] 97 % Elizabeth Yu Other [facility] Other 04-06-2023 11:05-0500 Systolic blood pressure 155 mm[Hg] Elizabeth Yu Other [facility] Other 06-23-2022 00:00-0500 Diastolic blood pressure 90 mm[Hg] Sd Joi [facility] 06-23-2022 00:00-0500 Heart rate 97 /min Sd Joi [facility] 06-23-2022 00:00-0500 SaO2% (BldA) [Mass fraction] 97 % Sd Joi [facility] 06-23-2022 00:00-0500 Systolic blood pressure 138 mm[Hg] Sd Joi [facility] 06-22-2022 23:00-0500 Diastolic blood pressure 80 mm[Hg] Sd Joi [facility] 06-22-2022 23:00-0500 Heart rate 98 /min Sd Joi [facility] 06-22-2022 23:00-0500 SaO2% (BldA) [Mass fraction] 98 % Sd Joi [facility] 06-22-2022 23:00-0500 Systolic blood pressure 145 mm[Hg] Sd Joi [facility] 06-22-2022 21:25-0500 Body temperature 97.88 [degF] Sd Joi [facility] 06-22-2022 21:25-0500 Diastolic blood pressure 93 mm[Hg] Sd Tamez [facility] 06-22-2022 21:25-0500 Heart rate 99 /min Sd Joi [facility] 06-22-2022 21:25-0500 Respiratory rate 16 /min Sd Joi [facility] 06-22-2022 21:25-0500 SaO2% (BldA) [Mass fraction] 96 % Sd Joi [facility] 06-22-2022 21:25-0500 Systolic blood pressure 155 mm[Hg] [facility] Encounters Encounter Date Encounter Type Care Provider Facility Start: 10-23-2024 Non-patient / Non-visit Tico De La Cruz MD -[facility] Work Phone: Start: 10-23-2024 End: 10-25-2024 Evaluation and management of inpatient Alcides Hui Facility:[facility] Start: 10-22-2024 Non-patient / Non-visit Adrienne Leo APRN [facility] Work Phone: Start: 10-05-2024 End: 10-05-2024 ambulatory [facility] Work Phone: Start: 10-05-2024 End: 10-05-2024 [facility] Work Phone: Start: 09-06-2024 End: 09-06-2024 ambulatory [facility] Work Phone: Start: 09-06-2024 End: 09-06-2024 Patient encounter [facility] Work Phone: Start: 08-01-2024 End: 08-02-2024 Refill Charlene Nick PA-C Work Phone: [facility] Plastic Surgery Comment on above: Refill Start: 07-23-2024 End: 07-23-2024 ambulatory UNKNOWN PROVIDER Facility:[facility] Start: 07-23-2024 End: 07-23-2024 Subsequent hospital visit by physician Cely Puente MD Work Phone: [facility] Radiology Start: 07-23-2024 End: 07-26-2024 ambulatory CELY PUENTE Facility:[facility] Comment on above: Refill Start: 07-23-2024 End: 07-23-2024 Subsequent hospital visit by physician Cely Puente MD Work Phone: [facility] Ambulatory Surgery Comment on above: Acute pain due to in jury Start: 07-22-2024 ambulatory UNKNOWN PROVIDER Facili ty:[facility] Start: 07-22-2024 Encounter for other preprocedural examination UNKNOWN PROVIDER The [facility] Start: 07-16-2024 End: 07-16-2024 Admission to same day surgery center Charlene Nick PA-C Work Phone: [facility] Plastic Surgery Start: 07-09-2024 End: 07-09-2024 Subsequent hospital visit by physician Gladys Op X-Ray 1 Work Phone: [facility] Radiology Comment on above: Traumatic amputation of finger, initial encounter; Hand laceration involving tendon, right, subsequent encounter Start: 07-09-2024 End: 07-09-2024 Patient encounter procedure Charlene Nick PA-C Work Phone: [facility] Plastic Surgery Comment on above: Traumatic amputation of finger, initial encounter (Primary Dx); Hand laceration involving tendon, right, subsequent encounter; Aftercare following surgery Start: 07-09-2024 End: 07-09-2024 ambulatory UNKNOWN PROVIDER Facility:[facility] Start: 06-26-2024 End: 06-26-2024 Letter encounter [facility]er[facility] Start: 06-24-2024 End: 06-24-2024 Refill Charlene Nick PA-C Work Phone: [facility] Plastic Surgery Comment on above: Refill Start: 06-23-2024 End: 06-23-2024 ambulatory UNKNOWN PROVIDER Facility:[facility] Start: 06-23-2024 End: 06-23-2024 Patient encounter procedure Charlene Sandoval CAT Work Phone: [facility] Plastic Surgery Comment on above: Traumatic amputation of finger, initial encounter (Primary Dx); Hand laceration involving tendon, right, subsequent encounter; Aftercare following surgery Start: 06-15-2024 ambulatory [facility] Start: 06-15-2024 End: 06-15-2024 ambulatory UNKNOWN PROVIDER Facility:[facility] Comment on above: OT Treatment; Splint /orthotic Issue Start: 06-15-2024 End: 06-15-2024 Patient encounter procedure Charlene Nick PA-C Work Phone: [facility] Plastic Surgery Comment on above: Traumatic amputation of finger, initial encounter (Primary Dx); Hand laceration involving tendon, right, subsequent encounter; Aftercare following surgery Start: 06-11-2024 End: 06-12-2024 Refill Stevie Glasgow MD Work Phone: [facility] Plastic Surgery Comment on above: Refill Start: 06-10-2024 End: 06-10-2024 Telephone encounter Cely Puente MD Work Phone: [facility] Plastic Surgery Start: 06-09-2024 End: 06-09-2024 ambulatory CELY PUENTE [facility] Start: 06-09-2024 End: 06-09-2024 Subsequent hospital visit by physician Cely Puente MD Work Phone: [facility] Radiology Start: 06-09-2024 End: 06-09-2024 ambulatory CELY PUENTE [facility] Start: 06-09-2024 End: 06-09-2024 Subsequent hospital visit by physician Cely Puente MD Work Phone: [facility] Radiology Start: 06-09-2024 End: 06-09-2024 ambulatory CELY PUENTE Facility:[facility] Start: 06-09-2024 End: 06-09-2024 Subsequent hospital visit by physician Cely Puente MD Work Phone: [facility] Main OR Comment on above: Open displaced fract ure of middle phalanx of left index finger with routine healing, subsequent encounter (Primary Dx); Postoperative pain Start: 06-02-2024 End: 06-02-2024 Patient encounter procedure Federico Galeana OTR/L, CHT [facility] Occupational Therapy Comment on above: OT Evaluation (Clini c 1) Start: 06-02-2024 End: 06-02-2024 ambulatory UNKNOWN PROVIDER Facility:[facility] Start: 06-02-2024 End: 06-02-2024 Office outpatient new 45 minutes Charlene Nick PA-C Work Phone: [facility] Plastic Surgery Comment on above: Hand laceration invo lving tendon, right, subsequent encounter (Primary Dx); Traumatic amputation of finger, initial encounter; Acute pain due to injury Start: 06-02-2024 End: 06-02-2024 ambulatory UNKNOWN PROVIDER Facility:[facility] Start: 06-01-2024 End: 06-01-2024 Telephone encounter Cely Puente MD Work Phone: [facility] Plastic Surgery Start: 06-01-2024 End: 06-01-2024 Nursing evaluation of patient and report Elma Parra RN [facility] Pre-Admission Testing Comment on above: Pre-op evaluation (P rimary Dx) Start: 06-01-2024 End: 06-01-2024 Preprocedural examination done Elma Parra RN [facility] Start: 06-01-2024 ambulatory UNKNOWN PROVIDER Facili ty:[facility] Start: 05-30-2024 End: 05-30-2024 Admission to same day surgery center Steive Paiz MD Work Phone: [facility] Plastic Surgery Start: 05-30-2024 Emergency department patient visit UNKNOWN PROVIDER Facility:[facility] Start: 05-30-2024 End: 05-30-2024 Emergency department patient visit UNKNOWN PROVIDER Facility:[facility] Comment on above: Hand/finger symptoms (Hand injury from a table saw, sent from OSH) Start: 05-29-2024 End: 05-30-2024 Emergency department patient visit Claudia Sierra [facility] Start: 09-19-2023 End: 09-19-2023 ambulatory [facility] Start: 2023 ambulatory [facility] Facilit y:[facility] Start: 04-06-2023 End: 04-06-2023 ambulatory Elizabeth Yu Other [employer] Other Start: 04-06-2023 Office outpatient ne w 10 minutes Elizabeth Yu [facility] Start: 06-24-2022 End: 06-24-2022 Patient encounter procedure NAHOMI CORRALES [facility] [place] Start: 06-22-2022 End: 06-23-2022 Emergency department patient visit Sd NellyJohana Tamez [facility] Start: 07-29-2016 End: 07-30-2016 Ambulatory PROVIDER UNKNOWN Facility:[facility] Procedures Date Procedure Procedure Detail Performing Clinician Start: 07-23-2024 Fluoroscopy up to 1 hour physician/qhp time Charlene Nick PA-C Work Phone: Start: 07-23-2024 End: 07-23-2024 Removal implant deep Cely Puente MD Work Phone: Start: 07-09-2024 Radex fingr minimum 2 views Charlene Nick PA-C Work Phone: Start: 06-09-2024 Us guidance needle placement img [...] 02-09-2014 Tonsillectomy Sd Kiara vera denies Sd Joi Plan of Treatment Date Care Activity Detail Author Start: 09-13-2047 Shingles (RZV) Vacci ne (1 of 2) Shingles (RZV) Vaccine (1 of 2) [facility] Start: 05-29-2034 Tetanus vaccination Tetanus (T d or Tdap) Booster [facility] Start: 01-26-2025 Influenza vaccination Influenz a Vaccine (#1) [facility] Start: 12-27-2024 COVID-19 Vaccine ( season) COVID-19 Vaccine ( season) [facility] Start: 10-27-2024 CT guided biopsy [facility] Start: 10-25-2024 Urine culture [facility] Start: 10-25-2024 End: 10-25-2024 [facility] Start: 10-24-2024 Consultation [facility] Start: 10-24-2024 [facility] Start: 10-24-2024 [facility] Start: 10-23-2024 [facility] Start: 10-23-2024 Referral to mechanical fitter [facility] Start: 10-23-2024 Hospital admission [facility] Start: 10-23-2024 [facility] Start: 2024 HPV Vaccine (optiona l start 27-45 years) HPV Vaccine (optional start 27-45 years) [facility] Start: 08-03-2024 End: 08-03-2024 Patient encounter procedure 08/03/2024 1:45 PM EDT Office Visit [facility] Plastic Surgery [address] [place], [place] [id number] Charlene Nick PA-C [address] [place], [place] [id number] [facility] Plastic Surgery Start: 12-28-2023 COVID-19 Vaccine ( season) COVID-19 Vaccine ( season) [facility] Start: 2016 Hepatitis A (HAV) Va ccine (optional start 19+ years) Hepatitis A (HAV) Vaccine (optional start 19+ years) [facility] Start: 2016 Pneumococcal vaccination Pneum ococcal Vaccine(s) (1 of 2 - PCV) [facility] Start: 09-13-2015 Hepatitis C screening Hepatitis C An tibody [facility] Start: 2012 HIV screening HIV Test [facility] Start: 2012 Vaccination for kell n papillomavirus HPV Vaccine (1 - Male 3-dose series) [facility] Start: 06-28-1998 Hepatitis B vaccination Hepati tis B (HBV) Vaccine (3 of 3 - 3-dose series) [facility] 24 hour urine magnes ium output measurement [facility] Aldosterone [Mass/vo lume] in Serum or Plasma [facility] Antibody measurement [facility] Cefuroxime free [Mass/volume] in Serum or Plasma [facility] Comprehensive metabo lic 2000 panel - Serum or Plasma [facility] Creatinine [Mass/vol ume] in Urine [facility] DOPamine [Mass/time] in 24 hour Urine [facility] DOPamine [Mass/volum e] in Urine [facility] EPINEPHrine [Mass/vo lume] in Urine [facility] Hepatitis A virus an tibody, IgM type [facility] Hepatitis B core ant ibody measurement, IgM type [facility] Hepatitis B virus yanes rface Ag [Presence] in Serum or Plasma by Immunoassay [facility] Hepatitis C virus Ig G Ab [Presence] in Serum or Plasma by Immunoassay [facility] HIV 1+2 Ab+HIV1 p24 Ag [Presence] in Serum or Plasma by Immunoassay [facility] Metanephrines [Mass/ volume] in 24 hour Urine [facility] Metanephrines/Creati nine [Mass Ratio] in Urine [facility] Myeloperoxidase Ab [Units/volume] in Serum by Immunoassay [facility] Neutrophil cytoplasm ic Ab.classic [Titer] in Serum by Immunofluorescence [facility] Norepinephrine [Mass /time] in 24 hour Urine [facility] Norepinephrine [Mass/volume] in Urine [facility] Normetanephrine [Mass/volume] in 24 hour Urine [facility] P-ANCA measurement [facility] Patient Education Know your Meds [facility] Work Phone: Patient referral [facility] Work Phone: Proteinase 3 Ab [Units/volume] in Serum by Immunoassay [facility] Renin [Enzymatic activity/volume] in Plasma [facility] Repair extensor tend on finger w/o graft each REPAIR, EXTENSOR TENDON, FINGER, PRIMARY/SECONDARY; W/O FREE GRAFT, EACH TENDON Procedures Routine Open displaced fracture of middle phalanx of left index finger with routine healing, subsequent encounter Ordered: 06/09/2024 [facility] [employer] Work Phone: Comment on above: Ordered: 06/09/2024 [facility] Immunizations Immunization Date Immunization Notes Care Provider Denis preston 05-29-2024 tetanus toxoid, reduced diphtheria toxoid, and acellular pertussis vaccine, adsorbed; Translations: [Boostrix (Tdap)] Claudia Sierra [facility] 08-08-1999 diphtheria, tetanus toxoids and acellular pertussis vaccine, unspecified formulation Charlene Nick PA-C Work Phone: [facility] 08-08-1999 haemophilus influenz ae type b vaccine, PRP-OMP conjugate Charlene Mccloudiak PA-C Work Phone: [facility] 08-08-1999 measles, mumps and rubella virus vaccine Charlene Mccloudiak PA-C Work Phone: [facility] 08-08-1999 poliovirus vaccine, inactivated Charlene Mccloudiak PA-C Work Phone: [facility] 06-28-1998 diphtheria, tetanus toxoids and acellular pertussis vaccine, unspecified formulation Charlene Sandoval PA-C Work Phone: [facility] 06-28-1998 haemophilus influenz ae type b vaccine, PRP-OMP conjugate Charlene Mccloudiak PA-C Work Phone: [facility] 05-03-1998 diphtheria, tetanus toxoids and acellular pertussis vaccine, unspecified formulation Charlene Mccloudiak PA-C Work Phone: [facility] 05-03-1998 haemophilus influenz ae type b vaccine, PRP-OMP conjugate Charlene Mccloudiak PA-C Work Phone: [facility] 05-03-1998 hepatitis B vaccine, pediatric or pediatric/adolescent dosage Charlene Mccloudiak PA-C Work Phone: [facility] 05-03-1998 poliovirus vaccine, inactivated Charlene Mccloudiak PA-C Work Phone: [facility] 02-22-1998 diphtheria, tetanus toxoids and acellular pertussis vaccine, unspecified formulation Charlene Mccloudiak PA-C Work Phone: [facility] 02-22-1998 haemophilus influenz ae type b vaccine, PRP-OMP conjugate Charlene Mccloudiak PA-C Work Phone: [facility] 02-22-1998 poliovirus vaccine, inactivated Charlene Nick PA-C Work Phone: [facility] 1997 hepatitis B vaccine, pediatric or pediatric/adolescent dosage Charlene Nick PA-C Work Phone: [facility] Payers Date Payer Category Payer Self-pay 2024 Medicaid [id number] 2021 Commercial Indemnity [employer] - HMO/PPO/POS [id number] 2021 Unknown [id number] 1997 Unknown [id number] 2.840.1.178737.3.579.2 1997 Unknown [id number] 2.840.1.499120.3.579.2 1997 Unknown [id number] 2.840.1.654997.3.579.2 1997 Unknown [id number] 2.840.1.224491.3.579.2 1997 Unknown [id number] 2.16840.1.885805.3.579.2 1997 Unknown [id number] 2.16840.1.114599.3.579.2 1997 Unknown [id number] 2.840.1.081544.3.579.2. 1997 Unknown [id number] 2.16.840.1.485972.3.579.2. 1997 Unknown [id number] 2.16.840.1.364981.3.579.2 1997 Unknown [id number] 2.16.840.1.011129.3.579.2 1997 Unknown [id number] 2.16.840.1.365460.3.579.2. 1997 Unknown [id number] 2.16.840.1.311522.3.579.2 1997 Unknown [id number] 2.840.1.721281.3.579.2 1997 Unknown [id number] 2.840.1.612412.3.579.2 1997 Unknown [id number] 2.840.1.093239.3.579.2. 1997 Unknown [id number] 2.840.1.772744.3.579.2 1997 Unknown [id number] 2.840.1.651972.3.579.2 1997 Unknown [id number] 2.840.1.539233.3.579.2 1997 Unknown [id number] 2.16840.1.343511.3.579.2. 1997 Unknown [id number] 2.16840.1.877421.3.579.2 1997 Unknown [id number] 2.16840.1.144903.3.579.2 1997 Unknown [id number] 2.840.1.964038.3.579.2 1997 Unknown [id number] 2.16.840.1.223840.3.579.2. [facility] [id number] Medicaid [employer] [id number] 500 [id number] Unknown MMO [id number] Unknown [place] BC/BS [id number] Unknown [id number] Social History Date Type Detail Facility Start: 05-23-2021 Tobacco smoking status Heavy t obacco smoker (finding) [facility] Start: 06-01-2024 End: 07-22-2024 Sex Assigned At Male [facility] Start: 06-01-2024 End: 10-23-2024 Tobacco smoking status NHIS Smokes tobacco daily [facility] History of tobacco use Cigarette Smoker M [...] Start: 05-30-2024 End: 10-05-2024 Sex Male (finding) [facility] Work Phone: Start: 09-06-2024 Tobacco smoking stat us FLIS Smoker (finding) [facility] Start: 1995 Sex Assigned At Male [facility] Start: 06-01-2024 End: 06-10-2024 Details of drug misuse behavior Misused drugs in past (finding) [facility] Start: 10-25-2024 SDOH Follow up SDOH Follow up [facility] Work Phone: Medical Equipment Procedure Code Equipment Code Equipment Origin al Text Equipment Identifier Dates K Wire Christopher 2 Pnt 4in .035 Bx6 [id number] - [id number] Start: 07-23-2024 K Wire Christopher 2 Pnt 4in .035 Bx6 [id number] - [id number] Start: 06-09-2024 K Wire Christopher 2 Pnt 4in .035 Bx6 695102 - [id number] Start: 07-23-2024 K Wire Christopher 2 Pnt 4in .035 Bx6 023212 - [id number] Start: 06-09-2024 K Wire Christopher 2 Pnt 4in .035 Bx6 175824 - [id number] Start: 07-23-2024 K Wire Christopher 2 Pnt 4in .035 Bx6 849555 - [id number] Start: 06-09-2024 K Wire Christopher 2 Pnt 4in .035 Bx6 487969 - [id number] Start: 07-23-2024 K Wire Christopher 2 Pnt 4in .035 Bx6 211790 - [id number] Start: 06-09-2024 K Wire Christopher 2 Pnt 4in .035 Bx6 123753 - [id number] Start: 07-23-2024 K Wire Christopher 2 Pnt 4in .035 Bx6 127085 - [id number] Start: 06-09-2024 Functional Status Date Assessment Result Facility 05-29-2024 Functional Status N/A [facility] 06-22-2022 Functional Status N/A [facility] Clinical Notes 06-22-2022 to 09-06-2024 Note Date & Type Note Facility 09-06-2024 Evaluation note Diagnosis Onset Date Resolution BMI 34.0-34.9,adult acute August 262024 9:37am Gout acute September 06, 2024 9:37am Hypertension acute September 06 9:37am Obese acute September 06, 2024 9:37am BMI 34.0-34.9,adult acute October 05, 2024 10:13am Obese acute October 05 10:13am [facility] Work Phone: 1(906) 453-487405-12-2025 Evaluation note* Diagnosis Onset Date Resolution Status Admit Date BMI 34.0-34.9,adult acute August 262024 9:37am Gout acute September 06, 2024 9:37am Hypertension acute September 06 9:37am Obese acute September 06, 2024 9:37am BMI 34.0-34.9,adult acute October 05, 2024 10:13am Obese acute October 05 10:13am JO (acute kidney injury) acute October 23, 2024 12:33am Dehydration acute October 23 12:33am Gout acute October 23 12:33am Hypertension acute October 23, 2 025 12:33am Hypokalemia acute October 23 12:33am Microscopic hematuria acute Sep 12:33am Proteinuria acute October 23 12:33am Tobacco dependence acute September 272024 12:33am [facility] Work Phone: 1(241) 810-248503-30-2025 Telephone encounter Note* Telephone Encounter - Danay Figueroa PharmD - 07/25/2024 12:54 PM EDT Patient sent a second request for oxycodone in [employer] 07/25/2024. [facility] Work Phone: 1(371) 294-324703-30-2025 Miscellaneous Notes* Telephone Encounter - Danay Figueroa PharmD - 07/25/2024 12:54 PM EDT Patient sent a second request for oxycodone in [employer] 07/25/2024. documented in this [id number] Surgery Postoperative evaluation and management note* Brief Operative Note - Emelina Diego DO - 07/23/2024 2:13 PM EDT Brief Operative Note BV OR 1 Tu Casiano 28 year old male Surgical Contact Serial Number: [id number] Preoperative Diagnosis: Pre-op Diagnosis * Traumatic amputation of finger, initial encounter [S68.119A] * Hand laceration involving tendon, right, subsequent encounter [S61.411D, S66.921D] Postoperative Diagnosis: * Traumatic amputation of finger, initial encounter [S68.119A] * Hand laceration involving tendon, right, subsequent encounter [S61.411D, S66.921D] Procedures: Right small finger hardware removal Surgeon(s): Surgeon(s): Cely Puente MD Staff: Scrub: Maryam Mao Scrub Nurse Nurse: Lidya Williamson RN Cigar Head Puncher: Emelina Diego DO; Cristopher Kaur DMD, MD Anesthesia: Consult Anesthesiologist: Salinas Saldaña MD CREPE LAMINATOR OPERATOR: Jessica Aguilar APRN-LAUREN Anesthesia Student: Carolina Tamez Specimen(s): * No specimens in log * Estimated Blood Loss: less than 5 cc Lines/Drains: Peripheral IV Access: 07/23/24 1249 22 gauge Left;Posterior Hand (Active) Site Assessment WNL;Dressing intact 07/23/24 1249 Infusion Status Port #1 Capped;Patent;Positive blood return 07/23/24 1249 Temporarily Retained Foreign [...] by Emelina Diego DO 07/23/2024 2:21 PM [id number] Surgery Surgical operation note* OP Note - Emelina Diego DO - 07/23/2024 2:13 PM EDT OPERATIVE NOTE Plastic Surgery Name: Tu Casiano CSN: [id number] Surgical Age: [age] year old Date of [...] Care Complete Surgeon(s): Primary: Cely Puente MD Global Account Director Surgeon: Scrub: Maryam Mao Scrub Nurse Nurse: Lidya Williamson RN Cigar Head Puncher: Emelina Diego DO; Cristopher Kaur DMD, MD Pre-Op Diagnosis: Pre-op Diagnosis * Traumatic amputation of finger, initial encounter [S68.119A] * Hand laceration involving tendon, right, subsequent encounter [S61.411D, S66.921D] Post-op Diagnosis * Traumatic amputation of finger, initial encounter [S68.119A] * Hand laceration involving tendon, right, subsequent encounter [S61.411D, S66.921D] Post Op Diagnosis: Same as preoperative diagnosis. [...] area, where risks, benefits and alternatives of theprocedure were discussed. The patient expressed understanding and elected to proceed with the planned procedure. Patient was transferred to the operative theater where he was positioned in the supineposition. Sedation by anesthesia was induced without difficulty. [...] was taken to confirm the location of thelast K-wire in the small finger. It was [...] patient was awakened from anesthesia without difficulty. hewas then transported to the PACU in stable [...] all critical parts of the procedure. Emelina Diego DO Cosigned by Cely Puente MD at 07/26/2024 11:46 AM EDT [id number] Miscellaneous Notes* Brief Operative Note - Emelina Diego DO - 07/23/2024 2:13 PM EDT Brief Operative Note BV OR 1 Tu Casiano 28 year old male Surgical Contact Serial Number: [id number] Preoperative Diagnosis: Pre-op Diagnosis * Traumatic amputation of finger, initial encounter [S68.119A] * Hand laceration involving tendon, right, subsequent encounter [S61.411D, S66.921D] Postoperative Diagnosis: * Traumatic amputation of finger, initial encounter [S68.119A] * Hand laceration involving tendon, right, subsequent encounter [S61.411D, S66.921D] Procedures: Right small finger hardware removal Surgeon(s): Surgeon(s): Cely Puente MD Staff: Scrub: Maryam Mao Scrub Nurse Nurse: Lidya Williamson RN Cigar Head Puncher: Emelina Diego DO; Cristopher Kaur DMD, MD Anesthesia: Consult Anesthesiologist: Salinas Saldaña MD CREPE LAMINATOR OPERATOR: Jessica Aguilar APRN-LAUREN Anesthesia Student: Carolina Tamez Specimen(s): * No specimens in log * Estimated Blood Loss: less than 5 cc Lines/Drains: Peripheral IV Access: 07/23/24 1249 22 gauge Left;Posterior Hand (Active) Site Assessment WNL;Dressing intact 07/23/24 1249 Infusion Status Port #1 Capped;Patent;Positive blood return 07/23/24 1249 Temporarily Retained Foreign [...] by Emelina Diego DO 07/23/2024 2:21 PM * OP Note - Emelina Diego DO - 07/23/2024 2:13 PM EDT OPERATIVE NOTE Plastic Surgery Name: Tu Casiano CSN: [id number] Surgical Age: [age] year old Date of [...] Care Complete Surgeon(s): Primary: Cely Puente MD Global Account Director Surgeon: Scrub: Maryam Mao Scrub Nurse Nurse: Lidya Williamson RN Cigar Head Puncher: Emelina Diego DO; Cristopher Kaur DMD, MD Pre-Op Diagnosis: Pre-op Diagnosis * Traumatic amputation of finger, initial encounter [S68.119A] * Hand laceration involving tendon, right, subsequent encounter [S61.411D, S66.921D] Post-op Diagnosis * Traumatic amputation of finger, initial encounter [S68.119A] * Hand laceration involving tendon, right, subsequent encounter [S61.411D, S66.921D] Post Op Diagnosis: Same as preoperative diagnosis. [...] area, where risks, benefits and alternatives of theprocedure were discussed. The patient expressed understanding and elected to proceed with the planned procedure. Patient was transferred to the operative theater where he was positioned in the supineposition. Sedation by anesthesia was induced without difficulty. [...] was taken to confirm the location of thelast K-wire in the small finger. It was [...] patient was awakened from anesthesia without difficulty. hewas then transported to the PACU in stable [...] all critical parts of the procedure. Emelina Diego DO Cosigned by Cely Puente MD at 07/26/2024 11:46 AM EDT documented in this [id number] Hospital Discharge instructions* Discharge Instructions* Tammy Maher, RN - 07/23/2024 1:45 PM EDT DEPARTMENT OF PLASTIC SURGERY DISCHARGE INSTRUCTIONS Outpatient Surgery C O N F I D E N T I A L I N F O R M A T I O N Hand Surgery Plastic Surgery Department Call [phone] during regular daytime business hours (8:00 am - 5:00 pm) and after 5:00 pm call [phone] or [phone] and ask for the Plastic Surgery (service) resident with any questions or concerns. If it is a life-threatening situation, proceed to the nearest emergency department. Follow up is typically in 7-10 days and should be scheduled by calling the office at [phone] if it has not already been arranged. Thank you for the opportunity to care for you today. Your health and healing are very important to us. We hope we made you feel as comfortable as possible and are committed to your recovery and continued well-being. The following is a brief overview of your Hand Surgery procedure today. Some of the information contained on this summary may be confidential. This information should be kept in your records and should be shared with your regular doctor. Disposition: Home Anesthesia received: IV Sedation Physicians: Dr. Puente (Plastic Surgery) Procedure performed: Hand Surgery What to Expect During your Recovery and Home Care Anesthesia Side Effects You received General anesthesia today. You may feel sleepy, tired, or have a sore throat. You may also feel drowsiness, dizziness, or inability to think clearly. For your safety, do not drive, drink alcoholic beverages, take any unprescribed medication or make any important decisions for 24 hours. A responsible adult should be with you for 24 hours. Activity and Recovery On the day of surgery and for 2 days after, please avoid exertion, straining, bending, or lifting. I encourage you to be modestly active after the first few post op days. Walking is perfect Avoid exercise until we discuss this at the first post op visit. Elevate the affected hand to help reduce swelling and pain. You may apply ice packs to the operative site over the dressing. You may remove the dressing in 24 hours. After it is removed, make sure it stays clean until followup on July [address] operate heavy machinery while taking narcotic pain medications as these medicationscan alter perception, impair judgement, and slow reaction times. It is fine to bathe when you feel well but you must keep the dressing and splint dry. Your diet can be resumed immediately after surgery. Most people can resume a normal diet the evening of surgery. If you feel queasy or nauseated, startwith clear liquids or soup. Advance your diet as tolerated to a regular diet. Medicines Your new medication(s) Tylenol Take the pain medication as instructed if needed. Do not drive until you are no longer taking the narcotics and are free of significant pain. Narcotic pain medication can become addictive and may also induce constipation. Please take a stoolsoftener when taking this medication to prevent constipation. You may take Tylenol (Acetaminophen) 650mg every 6 hours as needed for pain control. Do not take Tylenol (Acetaminophen) in combination with Percocet, there is already Tylenol in Percocet. Your regular medications can be resumed immediately after surgery, unless you take blood thinners, then consult your surgeon. Pain Control Unfortunately, you may experience pain after your procedure. Adequate management can include alternative measures to help ease your pain. Elevation, ice and rest the area. Nausea/Vomiting Clear liquids are best tolerated at first. Also, you may feel nauseous or like you need to vomit ifyou take any type of medication on an empty stomach. Signs of Bleeding Minor bleeding or drainage may occur through the bandage of the surgical site, which can be normal,however, excessive or consistent bleeding should be reported to your surgeon. Treatment/wound care: You may shower in 24 hours. You may notice some numbness in the fingers after surgery that may last several hours to days, this is quite normal and is often from the anesthesia used in the operating room. Signs of Infection Signs of infection can include fever, excessive swelling, heat, drainage, redness, or severe pain. If you develop any of these, please contact your doctor's office at [phone]. Any fever higher than 100.4 F, especially if associated with an ill feeling, abdominal pain, chills, or nausea should be reported to your surgeon. Emergencies: If there is a non-urgent problem, please call the office at [phone]. Most issues are easily addressed and do not require significant intervention. The most common emergencies that might need attention are: Sudden increase in pain Nausea that lasts 4 hours or more and does not respond to medication Bleeding that is persistent and uncontrolled High fever lasting more than a few hours and not responding to medication Shortness of breath or chest pain Leg swelling Loss of consciousness If you feel the situation is urgent, call 911 and/or proceed directly to the closest emergency room. Please call us as well at [phone]. * Attachments The following attachments cannot be sent through Care Everywhere. * Acute Pain Discharge Instructions, Adult (Stateless) documented in this [id number] History and physical note* Cristopher Kaur DMD, MD - 07/23/2024 1:42 PM EDT Images from the original note were not included. Surgical History and Physical [facility] Ambulatory Surgery [address] [place] [address] Name: Tu Casiano : 1995 28 year old CSN: [id number] Attending: Cely Puente MD Date of Admission: [...] Location: left arm) Pulse 62 Temp 97.5 F (36.4 C) (Temporal) Resp 16 Ht 6' (1.829 m) Wt 250 lb (113.4 kg) SpO2 96% BMI 33.91 kg/m ROS: Denies fever, chills, chest pain, [...] hospital encounter of 05/30/24 (from the past 54012 hours) Complete Blood Count W/Diff Collection Time: [...] still indicated. Yes Seen an evaluated by Cristopher Kaur DMD, MD. Discussed with attending Cely Puente MD. Cristopher Kaur DMD, MD 07/23/24 1:42 PM Cosigned by Cely Puente MD at 07/23/2024 1:46 PM EDT [id number] NoteSurgical History and Physical [facility] Ambulatory Surgery [address] [place] [address] Name: Tu Casiano : 1995 28 year old CSN: [id number] Attending: Cely Puente MD Date of Admission: [...] hospital encounter of 05/30/24 (from the past 64468 hours) Complete Blood Count W/Diff Collection Time: [...] medical history an (more content not included)...The [facility] [id number] History and physical note* Cristopher Kaur DMD, MD - 07/23/2024 1:42 PM EDT Images from the original note were not included. Surgical History and Physical [facility] Ambulatory Surgery [address] [address] Name: Tu Casiano : 1995 28 year old CSN: [id number] Attending: Cely Puente MD Date of Admission: [...] Location: left arm) Pulse 62 Temp 97.5 F (36.4 C) (Temporal) Resp 16 Ht 6' (1.829 m) Wt 250 lb (113.4 kg) SpO2 96% BMI 33.91 kg/m ROS: Denies fever, chills, chest pain, [...] hospital encounter of 05/30/24 (from the past 04963 hours) Complete Blood Count W/Diff Collection Time: [...] still indicated. Yes Seen an evaluated by Cristopher Kaur DMD, MD. Discussed with attending Cely Puente MD. Cristopher Kaur DMD, MD 07/23/24 1:42 PM Cosigned by Cely Puente MD at 07/23/2024 1:46 PM EDT documented in this [id number] History of Present illness Narrative* Charlene Nick PA-C - 07/09/2024 2:09 PM EDT Images from the original note were not included. Post Operative Visit Date of Surgery: 06/09/2024 [...] of infection. Sutures remain intact. Pin sites cleanand dry. Edema: Mild Motion: Improved at index, [...] agreement. Charlene Nick PA-C 07/09/24 2:10 PM documented in this [id number] History of Present illness Narrative* Charlene Nick PA-C - 06/23/2024 12:18 PM EST Images from the original note were not included. Post Operative Visit Date of Surgery: 06/09/2024 [...] agreement. Charlene Nick PA-C 06/23/24 12:25 PM documented in this [id number] History of Present illness Narrative* Charlene Nick PA-C - 06/15/2024 12:12 PM EST Images from the original note were not included. Post Operative Visit Date of Surgery: 06/09/2024 Surgery(s) performed: 1. Right middle finger revision amputation at the level of distal portion of the middle phalanx. 2. Fixation of the extensor tendon at 2 different places, in central slip and also zone 5. 3. Open reduction of the PIP dislocation fracture. Surgeon: Christoph Puente MD Pain (0-10): 02/04 Other Complaints: Patient continues to be concerned [...] agreement. Charlene Nick PA-C 06/15/24 12:15 PM documented in this [id number] History of Present illness Narrative* Prisca Caballero, JOHNR/Jai, CHT - 06/15/2024 10:30 AM EST OCCUPATIONAL THERAPY HAND TREATMENT Visit #: 2 Referred to Occupational Therapy for evaluation and treatment. Referring Provider: Charlene Nick PA-C DIAGNOSIS: Right SF open fracture dislocation and extensor tendon laceration and R MF distal phalanx amputation. PROCEDURES 06/09/24 ([place]): 1. R MF revision amputation at the level of distal portion of the middle phalanx. 2. Fixation of the extensor tendon at 2 different places, in central slip and also zone 5. 3. Open reduction of the PIP dislocation fracture. DOI/Mechanism: 05/30/24 - table saw injury Precautions: Small finger PIP is pinned. Extensor tendon precautions. NW[employer] Payor: [employer] - HMO/PPO/POS / Plan: [employer] PPO/CLASSIC/PLUS / Product Type: RAÚLO Tu Casiano [...] updated medication list. 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 Identification [...] 2x2, Blaire and coban. Instructed patient and fiance in dressing changes. Instructed patient in HEP [...] right UE into bimanual activities to complete child care supervisor tasks. Status: INITIATED Pt will integrate right [...] to OT closer to home per request, [facility] hand out provided Interventions: PROM, AROM, AAROM, Tendon gliding exercises, Edema Control, Wound Care, Scar Management, Modalities, Pain management, Splinting, and Home program Plan of care discussed with patient and agreed upon. Risks and benefits of Occupational Therapy discussed with patient. Plan for next visit: check splints, review and upgrade ROM program. Start Time: 11:15 am Stop Time: 12:15 pm Total Treatment Minutes: 60 minutes Timed Code Treatments by Procedure: OT Therapeutic Procedures THERAPEUTIC EXERCISES (15 MIN) [08788]: 10 SELF-CARE/HOME MANAGEMENT TRAINING (15 MIN) [75892]: 15 Total Timed Code Treatment Minutes: 25 minutes Un-Timed Code Treatments by Procedure: 1 WHO, 1 FO Total Un-Timed Code Treatment Minutes: 35 minutes SHARRI Harmon CHT documented in this [id number] Telephone encounter Note* Telephone Encounter - Rossy Norwood RN - 06/10/2024 11:12 AM EST Spoke with pt regarding post op pain [...] will not be permitted. Pt verbalized understanding. [facility] Work Phone: [phone]) [phone] Miscellaneous Notes* Telephone Encounter - Rossy Norwood RN - 06/10/2024 11:12 AM EST Spoke with pt regarding post op pain [...] will not be permitted. Pt verbalized understanding. * Telephone Encounter - Tri Vasquez - 06/10/2024 8:55 AM EST Pt calling to request a different pain med. States was not able to sleep due to pain last night. Please call. documented in this [id number] Telephone encounter Note* Telephone Encounter - Tri Vasquez - 06/10/2024 8:55 AM EST Pt calling to request a different pain med. States was not able to sleep due to pain last night. Please call. [id number] Surgery Surgical operation note* OP Note - Cely Puente MD - 06/09/2024 8:45 PM EST Name: TU CASIANO I MR#: [id number] [facility]#: [id number] Date of Procedure: 06/09/2024 ATTENDING SURGEON: Christoph Puente MD WAREHOUSE STOCKER: Dr. Matta PREOPERATIVE DIAGNOSES: Right hand small [...] closed with 5-0 chromic. Then, we started evaluatingthe small finger under the C-arm guidance. The [...] and transferred to PACU in stable condition. MD BOLIVAR Carranza/MedQ/Dict: 06/09/2024 15:21:21 TRANS: 06/09/2024 15:42:55 JOB: [id number] [employer]#: [id number] Miscellaneous Notes* OP Note - Cely Puente MD - 06/09/2024 8:45 PM EST Name: TU CASIANO I MR#: [id number] [facility]#: [id number] Date of Procedure: 06/09/2024 ATTENDING SURGEON: Christoph Puente MD WAREHOUSE STOCKER: Dr. Matta PREOPERATIVE DIAGNOSES: Right hand small [...] closed with 5-0 chromic. Then, we started evaluatingthe small finger under the C-arm guidance. The [...] SAT/MedQ/Dict: 06/09/2024 15:21:21 TRANS: 06/09/2024 15:42:55 JOB: [id number] [employer]#: [id number] * Brief Operative Note - Cely Puente MD - 06/09/2024 2:30 PM EST Brief Op Note Surgical Name: Tu Casiano CSN: [id number] Age: [age] year old Date of : 1995 Preoperative diagnosis(es): Pre-op Diagnosis * Hand laceration involving tendon, right, subsequent encounter [E84.217T, K83.922D] Postoperative diagnosis(es): Same Procedure(s): REPAIR, TENDON, EXTENSOR REDUCTION, OPEN, HAND Surgeon: Cely Puente MD Global Account Director surgeon: Dr. Matta Anesthesia: General Specimen(s): * [...] were discussed with the patient and/or legal service support representative. The risks, benefits and alternatives were reviewed. Questions regarding blood transfusions were answered. The patient /or the patient s legal service support representative agree with the plan for transfusion of blood and/or blood components. documented in this [id number] History of Present illness Narrative* Carolyn Ghosh [...] instructions and home prescriptions. documented in this [id number] NotePeripheral Block Patient location during procedure: holding area Start time: 06/09/2024 3:47 PM Reason for block: post-op pain management Preanesthetic Checklist Completed: patient identified, IV checked, site marked, risks and benefits discussed, consent given, standard monitors applied and equipment checked, pre-op evaluation and timeout performed Staffing: Authorized by: Jj Harman MD Performed by: Laila Golden DO Peripheral Block - brachial plexus block Shoulder [...] Slow fractionated injection: yes No block complicationsThe [place] [id number] NoteAcute Pain Note and Procedure Patient: Tu [...] Laila Golden DO Anesthesiology, PGY-3 06/09/2024, 4:23 [facility] [id number] Surgery Postoperative evaluation and management note* Brief Operative Note - Cely Puente MD - 06/09/2024 2:30 PM EST Brief Op Note Surgical Name: Tu Casiano CSN: [id number] Age: [age] year old Date of : 1995 Preoperative diagnosis(es): Pre-op Diagnosis * Hand laceration involving tendon, right, subsequent encounter [F50.647D, B54.024P] Postoperative diagnosis(es): Same Procedure(s): REPAIR, TENDON, EXTENSOR REDUCTION, OPEN, HAND Surgeon: Cely Puente MD Global Account Director surgeon: Dr. Matat Anesthesia: General Specimen(s): * No specimens in [...] procedure. Cely Puente MD 06/09/2024 3:13 PM [facility] [id number] Progress note* Blood Attestation - Js Gonzalez MD - 06/09/2024 12:58 PM EST Blood Attestation: ATTESTATION OF INFORMED CONSENT FOR BLOOD: The transfusion of blood and/or blood components were discussed with the patient and/or legal service support representative. The risks, benefits and alternatives were reviewed. Questions regarding blood transfusions were answered. The patient /or the patient s legal service support representative agree with the plan for transfusion of blood and/or blood components. [employer] Work Phone: 1(238) 649-873402-12-2025 History and physical note* Stevie Glasgow MD - 06/09/2024 12:54 PM EST Images from the original note were not included. [facility] [employer] [place] [address] Name: Tu Casiano : 1995 28 year old CSN: [id number] Attending: Cely Puente MD Date of Admission: [...] hospital encounter of 05/30/24 (from the past 09636 hours) CBC WITH DIFFERENTIAL Collection Time: 05/30/24 [...] MD. Stevie Glasgow MD 06/09/24 12:[address] [facility] Work Phone: 1(881) 307-139002-12-2025 NoteSurgical History and Physical [facility] Main OR [address] [place] [address] Name: Tu Casiano : 1995 28 year old CSN: [id number] Attending: Cely Puente MD Date of Admission: [...] hospital encounter of 05/30/24 (from the past 07543 hours) CBC WITH DIFFERENTIAL Collection Time: 05/30/24 [...] Puente MD. Stevie Glasgow MD 06/09/24 12:54 [facility]02-12-2025 History and physical note* Stevie Glasgow MD - 06/09/2024 12:54 PM EST Images from the original note were not included. Surgical History and Physical [facility] Main OR [address] [address] Name: Tu Casiano : 1995 28 year old CSN: [id number] Attending: Cely Puente MD Date of Admission: [...] hospital encounter of 05/30/24 (from the past 67503 hours) CBC WITH DIFFERENTIAL Collection Time: 05/30/24 [...] laceration involving tendon, right, subsequent encounter [S61.411D, E20.644A]. Plan: I have personally reviewed the patient's medical history and performed the physical examination below immediately before the procedure. Medications, allergies, and pertinent laboratory and diagnostictests were also reviewed at this time. Procedure is still indicated. Yes Seen an evaluated by Stevie Glasgow MD. Discussed with attending Cely Puente MD. Stevie Glasgow MD 06/09/24 12:54 PM documented in this [id number] Hospital Discharge instructions* Discharge Instructions* Carolyn Ghosh [...] (Arrive by 9:50 AM) Charlene Nick PA-C [facility] Plastic Surgery [facility] 06/15/2024 10:30 AM (Arrive by 10:20 AM) [facility] Occupational Therapy Arrive at: [facility] During business hours, if you need to reach your provider, please call Plastic Surgery Office [phone]. After hours, if you have an urgent question or issue, you can also call this number and request to be connected to one of the residents on-call. PERIOPERATIVE DISCHARGE/HOME-GOING INSTRUCTIONS ANESTHESIA - GENERAL (ADULT) If a problem arises, you may contact your physician by calling [phone] and asking for the resident enterprise integration architect for Plastic Surgery service. Special Care Needs: [...] very uncomfortable and can t urinate, call [phone] or come tot emergency room. A risk of anesthesia is [...] less likely. For more informati on visit: [email or web address]/ Some medications or combinations of medications can [...] and treated if needed documented in this [id number] Evaluation + Plan note* Assessment & Plan [...] - Follow up one week post operatively. [id number] Miscellaneous Notes* Assessment & Plan Note - [...] one week post operatively. documented in this [id number] NoteOCCUPATIONAL THERAPY HAND CLINIC EVALUATION Visit #: [...] Payor: [employer] - HMO/PPO/POS / Plan: [employer] PPO/CLASSIC/PLUS / Product Type: MARIA ISABEL Johnson [...] updated medication list. 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 Status: INITIATED Pt will integrate right [...] to OT closer to home per request, [facility] hand out provided Interventions: P (more content not included)...[facility] [id number] History of Present illness Narrative* Federico Galeana, [...] Payor: [employer] M[employer]UAL - HMO/PPO/POS / Plan: [employer] PPO/CLASSIC/PLUS / Product Type: RAÚLO Tu Johnson is a 28 year old [...] updated medication list. 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 Status: INITIATED Pt will integrate right [...] to OT closer to home per request, [facility] hand out provided Interventions: PROM, AROM, AAROM, [...] Minutes: Un-Timed Code Treatments by Procedure: OT EVAL LOW COMPLEX 30 MIN: 1 1 WHFO Total Un-Timed Code Treatment Minutes: 24 minutes SHARRI Barroso CHT documented in this [id number] History of Present illness Narrative* Charlene Nick [...] laceration involving tendon, right, subsequent encounter [S61.411D, S68.283W] Current smoker [F17.200] Fracture of cervical vertebra (HCC) [S12.9XXA] Gouty arthritis of right ankle [M10.9] Open fracture of middle phalanx of finger [S69.633B] Family History: No family history on file. [...] PA-C 06/02/24 12:06 PM documented in this [id number] Telephone encounter Note* Telephone Encounter - Rossy [...] POC. Preferred pharmacy for oxycodone refill is [facility] in [facility]. Current rx ends 2/5-pt aware we might not be able to fill until 2/6 based on frequency of rx. [facility] Work Phone: [phone] Miscellaneous Notes* Telephone Encounter - Rossy Norwood [...] POC. Preferred pharmacy for oxycodone refill is [facility] in [facility]. Current rx ends 2/5-pt aware we might not be able to fill until 2/6 based on frequency of rx. * Telephone Encounter - Sharron Santacruz - 06/01/2024 8:56 AM EST Please call patient in regards to pain medication refill. Pain meds now not working so good. Please call patient TONY they run out of meds by tomorrow. [phone] documented in this [id number] Instructions* Discharge Instructions* Elma Parra RN - 06/01/2024 8:58 AM EST June 01, 2024 Mr. Johnson, You are scheduled for your procedure/surgery on 06/09/[address] Puente at the [facility] location. You will be contacted on 06/08/2024 between 1-3 PM and provided with your arrival time. [address] [place] [address] [facility] PARKING INSTRUCTIONS Please plan extra time for parking and shuttle service. We recommend arriving at least 15 minutes prior to the time your care team advises you need to be here. Parking is available in the [employer] [facility] accessible from [employer]. 18/11 shuttle service from the garage to the [facility] is available. Go to the ground floor of the parking garage to reach the shuttle pick-up station located just outside the elevator and stairs. Shuttle service will drop you off at the [facility] entrance. Die Casting Supervisor service is available at the [facility] entrance if you prefer corporate law specialist over parking. [facility] Die Casting Supervisor Services Hours: Friday-Friday 5:30 am to 8:00 pm Enter the [facility] entrance and go to the Admitting/Registration desk [...] BOLD TEXT ? Expect a call from [facility] one business day prior to surgery for [...] stay with you after surgery. Please call [employer] if you need transportation assistance or have concerns about going home [phone]. ? PLEASE BE ON TIME. A late arrival may result in the cancellation/ delay of your surgery. Thank you for choosing [facility]; it is our pleasure to care for you If you become ill prior to procedure or surgery, or a family emergency should arise, please call the provider or surgeon's office directly. documented in this [id number] Telephone encounter Note* Telephone Encounter - Sharron Santacruz - 06/01/2024 8:56 AM EST Please call patient in regards to pain medication refill. Pain meds now not working so good. Please call patient TONY they run out of meds by tomorrow. [phone] [id number] Evaluation note* PAT Call History - Elma Parra RN - 06/01/2024 8:36 AM EST Images from the original note were not included. Telephone History Tu Johnson, [id number] 06/01/2024 28 year old 255 lbs 6' [...] surgery or procedure with anesthesia scheduled at [facility] ED Visit (05/30/2024) Partial Note- Hand injury/table [...] 5th digit. Patient was transferred here from [facility] for surgical consultation. A/P 28-year-old male with a past medical history listed above who presents to the emergency department as a transfer from [facility] for hand surgery consult. On initial presentation [...] and pain control prior to evaluation at [facility]. 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 Expect a call from [facility] one business day prior to surgery for [...] stay with you after surgery. Please call [facility] Social Work if you need transportation assistance or have concerns about going home [phone]. ? PLEASE BE ON TIME. A late arrival may result in the cancellation/ delay of your surgery. Thank you for choosing [facility]; it is our pleasure to care for you Elma Parra RN, RN Time Spent Performing this Telephone History: 30 min [id number] Miscellaneous Notes* PAT Call History - Elma Parra RN - 06/01/2024 8:36 AM EST Images from the original note were not included. Telephone History Tu Johnson, [id number] 06/01/2022 28 year old 255 lbs 6' [...] surgery or procedure with anesthesia scheduled at [facility] ED Visit (05/30/2024) Partial Note- Hand injury/table [...] 5th digit. Patient was transferred here from [facility] for surgical consultation. A/P 28-year-old male with a past medical history listed above who presents to the emergency department as a transfer from [facility] for hand surgery consult. On initial presentation [...] and pain control prior to evaluation at [facility]. 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 Expect a call from [facility] one day prior to surgery for surgery arrival [...] stay with you after surgery. Please call [facility] [employer] if you need transportation assistance or have concerns about going home [phone]. ? PLEASE BE ON TIME. A late arrival may result in the cancellation/ delay of your surgery. Thank you for choosing [facility]; it is our pleasure to care for you Elma Parra RN, RN Time Spent Performing this Telephone History: 30 min documented in this [id number] Note* Addendum Note - Charlene Nick PA-C - 05/30/2024 12:19 PM ESTAddended by: CHARLENE NICK on: 05/30/2024 12:19 PM Modules accepted: Orders [id number] Miscellaneous Notes* Addendum Note - Charlene Nick PA- C - 05/30/2024 12:19 PM ESTAddended by: CHARLENE NICK on: 05/30/2024 12:19 PM Modules accepted: Orders documented in this [id number] Hospital Discharge instructions* Discharge Instructions* Kenji Flores [...] Care Everywhere. * Wound Care Discharge Instructions (Stateless) documented in this [id number] Consult note* Stevie Paiz MD - 05/30/2024 [...] where decision was made to transfer to [facility]. Thepatient reports pain 10/10pm right small [...] Puente's office for surgery (schedulers messaged) - [facility] for discharge - Dispo: per ED [...] Paiz MD Plastic Surgery - PGY5 Pager: [phone] Cosigned by Cely Puente MD at 05/31/2024 8:30 AM EST [employer] Work Phone: 1([phone]) 275-476002-02-2025 Consult note* Stevie Paiz MD - 05/30/2024 [...] where decision was made to transfer to [facility]. Thepatient reports pain 10/10pm right small [...] Paiz MD Plastic Surgery - PGY5 Pager: [phone] Cosigned by Cely Puente MD at 05/31/2024 8:30 AM EST documented in this [id number] Physician Emergency department Note* Leonardo Roberts MD - 05/30/2024 1:39 AM EST Images from the original note were not included. EMERGENCY DEPARTMENT - VISIT NOTE HISTORY OF PRESENT ILLNESS Chief Complaint Patient presents with Hand/finger symptoms Hand injury from a table saw, sent from [facility] Perforator: not needed - patient preferred language is Stateless. The history is provided by the Patient. [...] 5th digit. Patient was transferred here from [facility] for surgical consultation. On chart review, patient [...] ED Course User Index [MY] Kenji Flores, DO Assessment & Plan: Tu Johnson is a 28-year-old male with a past medical history listed above who presents to the emergency department as a transfer from [facility] for hand surgery consult. On initial presentation [...] and pain control prior to evaluation at [facility]. Hand surgery was consulted, evaluated the [...] Attending Physician Department of Emergency Medicine Pager [phone] [facility] Work Phone: 1(419) 636-449002-02-2025 Emergency department Note* Leonardo Roberts MD - 05/30/2024 1:39 AM EST Images from the original note were not included. EMERGENCY DEPARTMENT - VISIT NOTE HISTORY OF PRESENT ILLNESS Chief Complaint Patient presents with Hand/finger symptoms Hand injury from a table saw, sent from [facility] Perforator: not needed - patient preferred language is Stateless. The history is provided by the Patient. [...] 5th digit. Patient was transferred here from [facility] for surgical consultation. On chart review, patient [...] ED Course User Index [MY] Kenji Flores, DO Assessment & Plan: Tu Johnson is a 28-year-old male with a past medical history listed above who presents to the emergency department as a transfer from [facility] for hand surgery consult. On initial presentation [...] and pain control prior to evaluation at [facility]. Hand surgery was consulted, evaluated the [...] Attending Physician Department of Emergency Medicine Pager [phone] documented in this [id number] Evaluation + Plan note Extracted from: Title:ED Note Author:Claudia Sierra DO Date :05/29/24 Open displaced fracture of m [...] Transfer Patient XR Hand 3+ Views Right [facility] 12-10-2023 Evaluation note* Encounter Date Diagnosis Assessment [...] no improvement in 2 to 3 days. [facility] Other 02-26-2023 Hospital Discharge instructions Patient Education 06/22/2022 23:52:48 Laceration Care, Adult, Xjeb-ix-Jvkr Laceration Care, Adult A laceration is a [...] prevent scarring. Supplies needed: Soap. Water. Hand log sawyer. Bandage (dressing). Antibiotic ointment. Clean towel. How to take care of your cut Wash your hands with soap and water before touching your wound or changing your bandage. If soap and water are not available, use hand log sawyer. If your doctor used stitches or nidhi: [...] falls off the skin. General instructions Take hpuf-tfg-fyaizly and prescription medicines only as told by [...] 09/30/2008 Document Revised: 06/12/2018 Document Reviewed: 05/04/2018 [employer] Patient Education 2020 Slack. Follow Up Care 06/22/2022 21:21:07 With:Skip ARANDA, PRICILA Asencio Address: [address] [place] [address]- When:2 weeks Comments:for suture removal [facility]02-25-2023 Evaluation + Plan noteExtracted from: Title:ED Note Author:Tori CAT, Charlene Medellin ate:06/22/22 1. Laceration of left index finger w/o foreign body w/o damage to nail (S61.211A: Laceration without foreign body of left index finger without damage to nail, initial encounter) Ordered: cephalexin, 500 mg = 1 cap(s), Oral, TID, X 5 day(s), # 15 cap(s), Refills(s) 0, Pharmacy: [facility]/pharmacy #[id number], 182.9, cm, 06/22/22 21:29:00 EST, Height/Length Dosing, 103.4, kg, 06/22/22 21:29:00 EST, Weight Dosing 2. Injury due to knife (W26.0XXA: Contact with knife, initial encounter) Ordered: cephalexin, 500 mg = 1 cap(s), Oral, TID, X 5 day(s), # 15 cap(s), Refills(s) 0, Pharmacy: [facility]/pharmacy #[id number], 182.9, cm, 06/22/22 21:29:00 EST, Height/Length Dosing, 103.4, kg, 06/22/22 21:29:00 EST, Weight Dosing Orders: bacitracin topical, 1 liza, Ointment, Topical, Once, Stop date 06/22/22 23:51:00 EST, STAT, Start date 06/22/22 23:51:00 EST Future Appointments Appointment Date:06/24/2022 03:40:00 PM Scheduled Provider:NAHOMI CORRALES CNP Location:[facility] Appointment Type: [facility] Diagnosis Hand laceration involving tendon, right, [...] 9:37am Obese acute September 06, 2024 9:37am [facility] Work Phone: Evaluation note* Diagnosis Traumatic [...] Hand laceration involving tendon, right, subsequent encounter [S61.789D, S66.343X]- Primary [facility] [...] acute postoperative pain [facility]* Diagnosis [...] to injury Acute pain due to trauma Impaired function of upper extremity- Primary Hand laceration involving tendon, right, subsequent encounter [S61.266D, S66.791D] Hand laceration involving tendon, right, subsequent encounter [facility]* Diagnosis Hand laceration involving tendon, right, subsequent encounter- Primary Traumatic amputation of finger, initial encounter Acute pain due to injury Acute pain due to trauma Traumatic amputation of finger, initial encounter- Primary Hand laceration involving tendon, right, subsequent encounter Aftercare following surgery Encounter for other specified aftercare Traumatic amputation of finger, initial encounter Hand laceration involving tendon, right, subsequent encounter [facility]* Diagnosis Hand laceration involving tendon, right, subsequent encounter- Primary Traumatic amputation of finger, initial encounter Acute pain due to injury Acute pain due to trauma Traumatic amputation of finger, initial encounter- Primary Hand laceration involving tendon, right, subsequent encounter Aftercare following surgery Encounter for other specified aftercare [facility]* Diagnosis Hand laceration involving tendon, right, subsequent encounter- Primary Traumatic amputation of finger, initial encounter Acute pain due to injury Acute pain due to trauma Traumatic amputation of finger, initial encounter Hand laceration involving tendon, right, subsequent encounter [facility]* Diagnosis Hand laceration involving tendon, right, subsequent encounter- Primary Traumatic amputation of finger, initial encounter Acute pain due to injury Acute pain due to trauma Amputation, finger, traumatic- Primary Traumatic amputation of other finger(s) (complete) (partial), without mention of complication Acute pain due to injury Acute pain due to trauma Hand laceration involving tendon, right, subsequent encounter [facility]* Diagnosis [...] to injury Acute pain due to trauma Traumatic amputation of finger, initial encounter- Primary Hand laceration involving tendon, right, subsequent encounter Aftercare following surgery Encounter for other specified aftercare [facility]* Diagnosis Hand laceration involving tendon, right, subsequent encounter- Primary Traumatic amputation of finger, initial encounter Acute pain due to injury Acute pain due to trauma Traumatic amputation of finger, initial encounter- Primary Hand laceration involving tendon, right, subsequent encounter [facility] Narrative - Reported* Type Description Date Medical History high blood pressure [facility] Other Hospital course Narrative No data available for this section [facility] Dis[facility] No data available for this section [facility] [place] Progress note No data available for this section [facility] Narrative* Auth/Cert (Routine) Specialty Diagnoses / Procedures Referred By Cammie price Referred To Contact General Surgery Diagnoses Hand laceration involving tendon, right, subsequent encounter Hand laceration involving tendon, right, subsequent encounter [P95.520D, F21.277K] Procedures REPAIR, EXTENSOR TENDON, FINGER, PRIMARY/SECONDARY; W/O FREE GRAFT, EACH TENDON REPAIR, EXTENSOR TENDON, FINGER, PRIMARY/SECONDARY; W/FREE GRAFT, EACH TENDON OPEN TRT, PHALANGEAL SHAFT FRCT, PROXIMAL/MIDDLE PHALANX, FINGER/THUMB, W/WO FIXATION, EA REPAIR, TENDON, EXTENSOR REDUCTION, OPEN, HAND Cely Puente MD [facility] [place] [address] Phone: tel: fax: [facility] [employer] [address] [place], [place] [address] [address] Phone: tel: Referral ID Status Reason Start Date Expiration Date Visits Re quested Visits Authorized [id number] 3 3 [facility] Narrative* Diagnostic X-Ray (Urgent) - Closed Specialty Diagnoses / Procedures Referred By Cammie price Referred To Contact Radiology Diagnoses Traumatic amputation of finger, initial encounter Hand laceration involving tendon, right, subsequent encounter Procedures XR FINGERS RIGHT 3 VIEWS Charlene Nick PA-C [address] [place], [place] [address] [address] Phone: tel: fax: [facility] [address] [place] [address] [place] [address] Phone: tel: Referral ID Status Reason Start Date Expiration Date Visits Re quested Visits Authorized [id number] Closed 07/07/2024 06/23/2025 1 1 [facility] for visit Narrative* Auth/Cert (Routine) Specialty Diagnoses / Procedures Referred By Cammie t Referred To Contact Ambulatory Surgery Diagnoses Traumatic amputation of finger, initial encounter Hand laceration involving tendon, right, subsequent encounter Traumatic amputation of finger, initial encounter [S68.119A] Hand laceration involving tendon, right, subsequent encounter [S61.411D, S66.921D] Procedures REMOVAL, IMPLANT; DEEP REMOVAL, HARDWARE, HAND Cely Puente MD [address] [place] [address] Phone: tel: fax: [facility] [address] [place] [phone] Phone: tel: Referral ID Status Reason Start Date Expiration Date Visits Re quested Visits Authorized [id number] 3 3 [facility] Summary Purpose Family History Relationship Condition Age [...] 3am Obese October 05, 2024 10:1 3am Chief Complaint Admit Date Est care/ wte loss September 06, 2024 9:37a m 4 week f/u October 05, 2024 10:1 3am acute kidney failure October 23, 2024 12: 33am Reason for Visit Admit Date BMI 34.0-34.9,adult September 06, 2024 9:37a m Gout September 06, 2024 9:37a m Hypertension September 06, 2024 9:37a m Obese September 06, 2024 9:37a m BMI 34.0-34.9,adult October 05, 2024 10:1 3am Obese October 05, 2024 10:1 3am JO (acute kidney injury) October 23 12:33am Dehydration October 23, 2024 12:3 3am Gout October 23, 2024 12:3 3am Hypertension October 23, 2024 12:3 3am Hypokalemia October 23, 2024 12:3 3am Microscopic hematuria October 23, 2024 12 :33am Proteinuria October 23, 2024 12:3 3am Tobacco dependence October 23, 2024 12:3 3am Additional Source Comments (unrecognized sect ion and content) No Status Records FoundNo Status Records FoundNo Status Records FoundNo Status Records Found INFORMATION SOURCE (unrecogn ized section and content) DATE CREATED AUTHOR 10/21/2017 [facility] DATE CREATED AUTHOR AUTHOR'S ORGANIZ ATION 07/30/2024 [facility] DATE CREATED AUTHOR AUTHOR'S ORGANIZ ATION 09/08/2024 [facility] DATE CREATED AUTHOR AUTHOR'S ORGANIZ ATION 12/04/2024 [facility] Patient Care team informatio n (unrecognized section and content) X Ray Examiner Of Aircraft Relationship Specialty Start Date End Date Federico Galeana OTR/L, CHT [address] [facility] [place] [address] Occupational Therapist Occupational Therapy 06/26/24 Prisca Caballero OTR/Jai, CHT [address] [facility] [place] [address] Occupational Therapist Occupational Therapy 06/26/24 Team Status: Active Member Role Status Dates Allison Leo APRN AUTOMOTIVE LIGHT MECHANIC-C Primary Care Provider Active Team Status: Inactive Member Role Status Dates Allison Leo APRN AUTOMOTIVE LIGHT MECHANIC-C Primary Care Provider, Attending Provider Active Start: September 06, 2024 End: September 06, 2024 Team Status: Inactive Member Role Status Dates Allison Leo APRN AUTOMOTIVE LIGHT MECHANIC-C Primary Care Provider, Attending Provider Active Start: October 05, 2024 End: October 05, 2024 Team Status: Inactive Member Role Status Dates Allison Leo APRN AUTOMOTIVE LIGHT MECHANIC-C Primary Care Provider Active Start: September 06, 2024 End: September 06, 2024 Allison Leo APRN AUTOMOTIVE LIGHT MECHANIC-C Attending Provider Act luis Start: September 06, 2024 End: September 06, 2024 Team Status: Inactive Member Role Status Dates Allison Leo APRN AUTOMOTIVE LIGHT MECHANIC-C Primary Care Provider Active Start: October 05, 2024 End: October 05, 2024 Allison Leo APRN AUTOMOTIVE LIGHT MECHANIC-C Attending Provider Act luis Start: October 05, 2024 End: October 05, 2024 Team Status: Active Member Role Status Dates Allison Leo APRN AUTOMOTIVE LIGHT MECHANIC-C Primary Care Provider Active Start: October 22, 2024 Allison Leo APRN AUTOMOTIVE LIGHT MECHANIC-C Attending Provider Act luis Start: October 22, 2024 Team Status: Active Member Role Status Dates Aries Castro DO Primary Care Provider Active Start: October 23, 2024 Alcides Hui DO Admit Provider Active Start: October 23, 2024 Poli Florentino MD Other Provider Active Sta rt: October 23, 2024 Tico De La Cruz MD Attending Provider Active Start : October 23, 2024 Tico De La Cruz MD Other Provider Active Start: Mary Jane 2024 X Ray Examiner Of Aircraft Relationship Specialty Start Date End Date Federico Galeana, JOHNR/L, CHT [address] [facility] [place] [address] Occupational Therapist Occupational Therapy 06/26/24 Federico, Prisca, OTR/L, CHT [address] [place] [address] [place] [address] Occupational Therapist Occupational Therapy 06/26/24 X Ray Examiner Of Aircraft Relationship Specialty Start Date End Date BilFederico rose, OTR/L, CHT [address] [facility] [place] [place] [address] Occupational Therapist Occupational Therapy 06/26/24 Federico, Prisca, OTR/L, CHT [address] [place] [address] [place] [address] Occupational Therapist Occupational Therapy 06/26/24 X Ray Examiner Of Aircraft Relationship Specialty Start Date End Date BilFederico rose, OTR/L, CHT [address] [facility] [place] [address] Occupational Therapist Occupational Therapy 06/26/24 Yamilka Caballeroyce, OTR/L, CHT [address] [place] [address] [place] [address] Occupational Therapist Occupational Therapy 06/26/24 X Ray Examiner Of Aircraft Relationship Specialty Start Date End Date Federico Galeana, OTR/L, CHT [address] [facility] [place] [address] Occupational Therapist Occupational Therapy 06/26/24 Yamilka Caballeroyce, OTR/L, CHT [address] [place] [address] [place] [address] Occupational Therapist Occupational Therapy 06/26/24 X Ray Examiner Of Aircraft Relationship Specialty Start Date End Date BilFederico rose, OTR/L, CHT [address] [facility] [place] [address] Occupational Therapist Occupational Therapy 06/26/24 Federico Prisca, OTR/L, CHT [address] [place] [address] [place] [address] Occupational Therapist Occupational Therapy 06/26/24 X Ray Examiner Of Aircraft Relationship Specialty Start Date End Date BilFederico rose, OTR/L, CHT [address] [place] [address] [place] [address] Occupational Therapist Occupational Therapy 06/26/24 Prisca Caballero, OTR/L, CHT [address] [place] [address] [address] [id number] Occupational Therapist Occupational Therapy 06/26/24 REASON FOR VISIT (unrecogniz ed section and content) Reason Onset Date Comments Refill 08/01/2024 Reason Comments Hand/finger symptoms Hand injury from a table saw, sent from OSH Reason Comments OT Evaluation Clinic 1 Specialty Diagnoses / Procedures Referred By Cammie price Referred To Contact General Surgery Diagnoses Hand laceration involving tendon, right, subsequent encounter Hand laceration involving tendon, right, subsequent encounter [V23.377D, J15.748X] Procedures REPAIR, EXTENSOR TENDON, FINGER, PRIMARY/SECONDARY; W/O FREE GRAFT, EACH TENDON REPAIR, EXTENSOR TENDON, FINGER, PRIMARY/SECONDARY; W/FREE GRAFT, EACH TENDON OPEN TRT, PHALANGEAL SHAFT FRCT, PROXIMAL/MIDDLE PHALANX, FINGER/THUMB, W/WO FIXATION, EA REPAIR, TENDON, EXTENSOR REDUCTION, OPEN, HAND Cely Puente MD [address] [place] [address] Phone: tel: fax: [facility] [address] [place] [phone] Phone: tel: Referral ID Status Reason Start Date Expiration Date Visits Re quested Visits Authorized [id number] 3 3 Reason Comments Monitoring/follow-up Cut with tile saw 3 days ago. 5th dig et barely on and tip of middle finger gone. Right hand Reason Onset Date Comments Refill 06/11/2024 Reason Onset Date Comments Refill 06/24/2024 Reason Comments OT Treatment Splint/orthotic Issue Specialty Diagnoses / Procedures Referred By Cammie price Referred To Contact Occupational Therapy Diagnoses Hand laceration involving tendon, right, subsequent encounter Procedures OT EVAL LOW COMPLEX 30 MIN OT EVAL MOD COMPLEX 45 MIN OT EVAL HIGH COMPLEX 60 MIN OT RE-EVAL EST PLAN CARE THERAPEUTIC ACTIVITY EA 15MIN THERAPEUTIC EXERCISE JOINT MOBILIZATION NEUROMUSCULAR REEDUCATION VOCATIONAL CONSULTATION RESPIRATORY MANAGEMNT TRAINING ORTHOTIC(S) MGMT AND TRAINING, UPPER EXTREMITY(S), LOWER EXTREMITY(S) AND/OR TRUNK, EA 15 MINUTES SD ORTHOTICS/PROSTH MGMT &/TRAINJ SBSQ ENCTR 15 MIN Charlene Nick PA-C [address] [place] [address] Phone: tel: fax: [facility] Occupational Therapy [address] [place] [address] Phone: tel: Referral ID Status Reason Start Date Expiration Date Visits Requested Visits Authorized [id number] Authorized Consult[facility] 06/15/2024 12/13/2024 10 10 Reason Comments Limited or partial exam Reason Onset Date Comments Refill 07/23/2024 Goals (unrecognized section and content) Goals may [...] Push, ONCE, 1 dose, On 05/30/24 at 0555 0505 (Given - Provid er: Sanaz Gonzalez RN) lidocaine-EPINEPHrine (XYLOCAINE) 1 %-1:[id number] injection SOLN (COMPLETED) 20 mL, Injection, ONCE, 1 dose, On Fri05/30/24 at 0239 0239 (Given by Robert foss - Provider: Sanaz Gonzalez RN) oxyCODONE immediate [...] Pereira)1529 (IV Stop - Provider: Mary Chan APRN-[facility]) PRN Medication Order 06/07/2024 06/08/2024 06/09/2024 acetaminophen [...] Fri06/09/24 at 1259, Until Fri06/09/24 at 192, Respiratory Rate Less Than 8 for adults [...] (Given - Provid er: Carolyn Ghosh RN) Scheduled Medication Order 07/21/2024 07/22/2024 07/23/2024 ceFAZolin Sodium (ANCEF) 2,000 mg in sterile water for injection 10 mL IV push 2,000 mg, Intravenous, ONCE, 1 dose, On Fri07/23/24 at 1300 1300 (Due) Continuous Medication Order 07/21/2024 07/22/2024 07/23/2024 lactated ringers iv infusion Intravenous, at 75 mL/hr, CONTINUOUS, Starting on Fri07/23/24 at 1300, Until Fri07/23/24 at 1723 1300 (Due) PRN Medication Order 07/21/2024 07/22/2024 07/23/2024 acetaminophen (TYLENOL) tablet 650 mg, Oral, PACU ONCE PRN, Starting on Fri07/23/24 at 1257, Until Fri07/23/24 at 1723, Mild Pain (pain score 1,2,3), PACU Now BUPivacaine (PF) (MARCAINE) 0.5 % injection (CANCELED) PRN, Starting on Fri07/23/24 at 1433, Until Fri07/23/24 at 1434, Intra-op 1433 (Given - Provid er: Emelina Diego DO) naloxone (NARCAN) 0.4 MG/ML injection 0.4 mg, Intravenous Push, PRN, Starting on Fri07/23/24 at 1256, Until Fri07/23/24 at 1723, Respiratory Rate Less Than 8 for adults and less than 12 for Peds or for suspected overdose, PACU Now ondansetron (ZOFRAN) 4 MG/2ML injection 4 mg, Intravenous Push, PACU ONCE PRN, Starting on Fri07/23/24 at 1256, Until Fri07/23/24 at 1723, Nausea, Vomiting, PACU Now oxyCODONE-acetaminophen (PERCOCET) 5-325 mg per tablet 2 Tablet, Oral, PRN, 1 dose, Starting on Fri07/23/24 at 1257, Until Fri07/23/24 at 1723, Moderate Pain (pain score 4,5,6), PACU Now sodium chloride 0.9 % injection 3 mL, Intravenous Push, PRN, Starting on Fri07/23/24 at 1256, Until Fri07/23/24 at 1723, For medication administration and blood draw, PACU Now FOR RECORDS PERTAINING TO PATIENTS WHO ARE [...] BE BASED ON THE PRIMARY CLINICAL RECORDS. [facility]. provides no warranty or guarantee of the accuracy or completeness of information in this document.
== END 2025-02-02 13:39 | disposition home or self-care (01) ==
LOC: US 13:40
PROVIDERS: PCP Internal Medicine; Visit Provider Nurse Practitioner Family
DX: M79.89 Other specified soft tissue disorders (principal); M25.461 Effusion, right knee; M25.561 Pain in right knee; M79.604 Pain in right leg
CPT/HCPCS: 73562; 93971

== ENCOUNTER 2025-02-03 13:48 | Outpatient (REF) | payer OTHER, SELFPAY ==
--- OUTSIDE RECORDS SUMMARY | 2025-02-03 09:29 | XMS_ITS | Continuity of Care Document ---
Author Organization [facility] Address [address] [place] [address] Phone Care Team Providers Care Powder Compounder Name Role Phone Valeri Carr APRN Primary Care Provider Valeri Carr APRN Attending Provider Luis Fonseca DO Attending Provider Care Teams Patient Care Team Team Status: Active Member Role Status Dates Valeri Carr APRN MARKET RISK ANALYST-C Primary Care Provider Active Visit Care Team Team Status: Inactive Member Role Status Dates Valeri Carr APRN MARKET RISK ANALYST-C Primary Care Provider Active Start: February 02, 2025 End: February 02, 2025 Valeri Carr APRN MARKET RISK ANALYSTChristian Attending Provider Act luis Start: February 02, 2025 End: February 02, 2025 Patient Care Team Team Status: Inactive Member Role Status Dates Valeri Carr APRN MARKET RISK ANALYST-C Primary Care Provider Active Start: February 03, 2025 End: February 03, 2025 Luis Fonseca DO Attending Provider Active St art: February 03, 2025 End: February 03, 2025 Chief Complaint and Reason for Visit Chief Complaint Admit Date Right Leg Inflammation February 02, 2025 1:00pm CONSULT VALERI CARR February 03, 2025 12:08pm Reason for Visit Admit Date Right knee pain February 02, 2025 1: 00pm Right leg pain February 02, 2025 1: 00pm Swelling of right knee February 02, 2025 1:00pm Swelling of right lower extremity Octobe r 2024 1:00pm Right knee pain February 03, 2025 12 :08pm Swelling of right knee February 03, 2025 12:08pm Allergies, Adverse Reactions, Alerts Allergen Type Severity Reaction Last Updated Verified Status No Known Allergies Allergy Unknown Octobe r 2024 12:53pm Yes Active Social History Smoking Status Status Start Date End Date Date of Observa tion Smokes tobacco daily (finding) October 23, 2024 11:37am Observation Status Observation Response Date of Response Legal Sex Male (finding) Sex Assigned At Male 1995 Family History Relationship Condition Age at Onset Recorded Date/T steffi father Hypertension Unknown Problems Active Problems Medical Problem Onset Date Status Comments Swelling of right knee Unknown Active Swelling of right lower extremity Unknown Active Gout Unknown Active Right leg pain Unknown Active BMI 34.0-34.9,adult Unknown Active Right knee pain Unknown Active Obese Unknown Active Inactive/Resolved Problems Medical Problem Onset Date Status Comments JO (acute kidney injury) Unknown Resolved Exposure to 2018-nCoV Unknown Resolved Proble m List clean-up per request of Phys. EHR Cmte Tobacco dependence Unknown Resolved Microscopic hematuria Unknown Resolved Proteinuria Unknown Resolved Hypertension Unknown Resolved Dehydration Unknown Resolved Hypokalemia Unknown Resolved Medications Medication Status Dose Units Route Directions Qty Days St art Date Stop Date End Date Instructions Adherence Indomethaci n 50 mg capsule Active 50 MG PO Three times daily as needed for gout 21 7 2024 12:00a m administer with food or milk Complies with drug therapy Tramadol 50 mg tablet Active 50 MG PO Every 8 hours as needed for pain 9 3 Octobe r 2024 12:00a m Complies with drug therapy Prednisone 20 mg Tablet Discont inued 40 MG PO Daily 4 2 October 25, 2024 12:00a m Octob er 2024 1:10p m Amlodipine 5 mg Tablet Discont inued 5 MG PO Daily 30 October 25, 2024 12:00a m Octob er 2024 1:10p m Lisinopril 10 mg tablet Discont inued 30 MG PO Daily September 06, 2024 12:00a m September 06, 2024 10:08 am Allopurinol 100 mg tablet Discont inued 100 MG PO Daily as needed September 06, 2024 12:00a m September 06, 2024 10:08 am Lisinopril 30 mg tablet Active 30 MG PO Daily 90 90 September 06, 2024 10:04a m On Hold: Hold for now. Use amlodipine instead for blood pressure control. Complies with drug therapy Indomethaci n 50 mg capsule Discont inued 50 MG PO Three times daily 24 02September 06, 2024 12:00a m October 23, 2024 3:01a m administer with food or milk Allopurinol 100 mg tablet Active 100 MG PO Daily 90 September 06, 2024 10:07a m Complies with drug therapy Phentermine (Adipex-P) 37.5 mg tablet Discont inued 37.5 MG PO Daily September 06, 2024 12:00a m October 05, 2024 10:33 am must administer 30 minutes before or 1-2 hours after breakfast Phentermine (Adipex-P) 37.5 mg tablet Discont inued 37.5 MG PO Daily October 05, 2024 10:32a m Augus t 2024 9:42a m must administer 30 minutes before or 1-2 hours after breakfast Ibuprofen 800 mg tablet Active MG PO Octobe r 2024 12:00a m Complies with drug therapy Colchicine 0.6 mg tablet Active 0.6 MG PO Twice daily 60 Janobe r 2024 12:00a m Take 2 tabs initially, then take 1 tab 1 hour later followed by 1 tablet twice daily. Complies with drug therapy Hydrocodone -Acetaminop hen 5-325 mg tablet Discont inued 1 TAB PO Every 8 hours as needed for pain 8 Janobe r 2024 Octob er 2024 1:24p m 8 tablets Hydrocodone -Acetaminop hen 5-325 mg tablet Active 1 TAB PO Every 8 hours as needed for pain 8 Janobe r 2024 8 tablets Complies with drug therapy Vital Signs Vital Reading Result Reference Range Collection Date/Time Height 72 [in_i] February 02 1:02pm Weight 111.13 kg February 02 1:02pm Body Temperature 97.3 [degF] 97.6-99.0 January 1:02pm Heart Rate 95 /min 60-100 February 02 1:02pm Oxygen saturation by Pulse oximetry 95 % 95-100 February 02, 2025 1: 02pm BP Systolic 140 mm[Hg] 100-140 February 02 1:02pm BP Diastolic 90 mm[Hg] 60-100 February 02 1:02pm BMI (Body Mass Index) 33.2 kg/m2 Octobe r 2024 1:02pm Advance Directives Advance Directive Response Recorded Date/ Time Advance Directives No August 28, 2020 4:01pm Insurance Providers Guarantor Tu Harrison I Address [address] [facility] [address] Contact Info. Home Phone: Payer Policy Id Subscriber's Name Subscriber Id Effectiv e Date Expiration Date MMO [id number] Tu Harrison I [id number] Encounters Encounter Location(s) Arrival/Admit Date Discharge/Depart Date Provider(s) Departed Physician/Prov ider Office Visit -[facility] February 02, 2025 1:00pm February 02, 2025 1:25pm Valeri Carr APRN CNP Departed Physician/Prov ider Office Visit -[facility] [place] February 03, 2025 12:08pm February 03, 2025 1:28pm Luis Fonseca DO Recent Diagnosis Onset Date Admit Date Right knee pain Unknown February 02 1:00pm Right leg pain Unknown February 02 1:00pm Swelling of right knee Unknown February 022024 1:00pm Swelling of right lower extremity Unknown February 02, 2025 1:00pm Right knee pain Unknown February 03 12:08pm Swelling of right knee Unknown February 032024 12:08pm Assessments Diagnosis Onset Date Resolution Status Admit Date Right knee pain acute February 022024 1:00pm Right leg pain acute January 1:00pm Swelling of right knee acute Oc tober 2024 1:00pm Swelling of right lower extremity acute February 02 1:00pm Right knee pain acute February 032024 12:08pm Swelling of right knee acute Oc tober 2024 12:08pm Plan of Treatment Author Valeri Carr [facility] Authored February 03, 2025 1: 26pm Discussed with pt due to the swelling and pain would refer for an Future Tests Future scheduled test information is unavailable Pending Tests Test Name Ordered Date Scheduled Date XR knee RT 3V - NOT FOR ER USE February 02, 2025 1:14pm US venous duplex LE RT February 02, 2025 1:14pm Crystals,Synovial Fluid February 03, 2025 1:19pm Future Visits Future appointment information is unavailable Referrals to Other Providers Referral information is unavailable Future Procedures Procedure Name Ordered Date Scheduled Date Body Fluid Culture February 03, 2025 1:19pm Cell Count&Diff,Synovial Fluid February 03, 2025 1:19pm Glucose, Synovial Fluid February 03, 2025 1:19pm Future Medications Future medication information is unavailable Patient Instructions Patient instructions are unavailable
--- OUTSIDE RECORDS SUMMARY | 2025-02-03 13:54 | XMS_ITS | CCD ---
Author Organization [facility] [place] [facility] Team Providers Care Coil Finisher Name Role Phone UNKNOWN, PROVIDER Unavailable Unavailable UNKNOWN, PROVIDER Unavailable Unavailable UNKNOWN, PROVIDER Unavailable Unavailable STEVEN MILLER Unavailable Unavailable NAHOMI CORRALES Primary Care Physician Dodie Hamilton Unavailable Unavailable Elizabeth Yu Unavailable [...] Prisca Unavailable Ar THOMAS Attending Unavailable Ar HTOMAS Attending Unavailable Claudia Sierra Attending Unavailable Unavailable Primary Care Provider UnavailAllison Damon APRN Primary Care Provider Allison Leo APRN Attending Provider Aries Castro DO Primary Care Provider [phone] Alcides Hui DO Admit Provider Poli Florentino MD Other Provider [phone] Tico De La Cruz MD Attending Provider [...] day(s), # 15 cap(s), Refills(s) 0, Pharmacy: [facility]/pharmacy #[id number], 182.9, cm, 06/22/22 21:29:00 [...] BID, # 20 tab(s), Refills(s) 0, Pharmacy: [facility], 183, cm, 05/23/21 10:48:00 EST, Height/Length [...] daily Start: 04-06-2023 take 2 tablets by [facility] every twenty-four hours predniSONE 20 MG 2 [...] End: 06-09-2024 1,000 mg, Oral, PACU ONCE IL N, Starting on Fri06/09/24 at 1606, Until [...] 1 EA, 0, Use at home daily, [facility], Supply, 182, cm, 09/08/20 16:07:00 EDT, [...] Daily, # 30 tab(s), Refills(s) 0, Pharmacy: [facility] #37, 182, cm, 09/08/20 16:07:00 EDT, [...] 06-09-2024 End: 06-09-2024 0.4 mg, Intravenous Push, IL N, Starting on Fri06/09/24 at 1259, Until [...] (RBC) [Ratio] 14.2 % Normal 12.0-14.8 The [facility] Comment on above: Performed By: #### B MP, MG #### [address] Hematocrit (Bld) [Volume fraction] 48.6 % Normal 38.8-50.0 The [facility] Comment on above: Performed By: #### B MP, MG #### [address] Hemoglobin (Bld) [Mass/Vol] 16.6 g/dL Normal 13.0-17.0 The [facility] Comment on above: Performed By: #### B MP, MG #### [address] MCH (RBC) [Entitic mass] 32.2 pg Normal 27.5-35.2 The [facility] Comment on above: Performed By: #### B MP, MG #### [address] MCV (RBC) [Entitic vol] 94.2 fL Normal 83.5-101 T he [facility] Comment on above: Performed By: #### B MP, MG #### [address] Mean Corpuscular HGB Conc 34.2 g/dL Normal 32.5-35.6 The [facility] Comment on above: Performed By: #### B MP, MG #### [address] Platelet mean volume (Bld) [Entitic vol] 9.9 fL Normal 6.6-10.1 The [facility] Comment on above: Result Comment: PERF ORMED BY: [place] [address] PATHOLOGIST SALES MARKETING COORDINATOR VARUN ARGUETA M.D. Performed By: #### B MP, MG #### [place] [address] [place] Platelets (Bld) [#/Vol] 160 10*3/uL Normal 150-450 The [facility] Comment on above: Performed By: #### B MP, MG #### [facility] [address] RBC (Bld) [#/Vol] 5.16 10*6/uL Normal 3.90-5.60 The [facility] Comment on above: Performed By: #### B MP, MG #### [facility] [address] White Blood Count 12.9 [CFU]/mL High 4.1-10.5 The [facility] Comment on above: Performed By: #### B MP, MG #### [address] Metanephrine Urine Randomon 10-25-2024 Creatinine, Random Ur 101.5 mg/dL Normal Not Estab. [facility] Comment on above: Performed By: #### U METRA #### [facility] , Metanephrine Random Urine 113 Normal Undefined The [facility] Comment on above: Result Comment: This test was developed and its performance characteristics determined by [facility]. It has not been cleared or approved by the Food and Drug Administration. Performed By: #### U METRA #### [facility] , Metanephrine/Creatinine Ratio 0.4 Normal 0.0-1.0 The [facility] Comment on above: Result Comment: Resu lt Units: ug/mg Creat Performed at: [address] [id number] Cardboard Cutter: Ata Fletcher MD, Phone: [phone] Performed By: #### U METRA #### [facility] , Normetanephrine Random Urine 223 Normal Undefined The [facility] Comment on above: Result Comment: This test was developed and its performance characteristics determined by [facility]. It has not been cleared or approved by the Food and Drug Administration. PERFORMED BY: [place] [address] PATHOLOGIST SALES MARKETING COORDINATOR VARUN ARGUETA M.D. Performed By: #### U METRA #### [facility] , Partial Thromboplastin Timeo n 10-25-2024 aPTT Coag (Bld) [Time] 29.8 s Normal 25.1-36.5 Th e [facility] Comment on above: Result Comment: A he matocrit value greater than 55% may lead to inaccurate results in coagulation testing. Patients having hematocrit values >55% require a special collection tube for coagulation studies. Please contact the laboratory at [phone] for redraw instructions. PERFORMED BY: [place] [address] PATHOLOGIST SALES MARKETING COORDINATOR VARUN ARGUETA M.D. Performed By: #### P T, PTT #### [address] Prothrombin Time INRon 10-25 INR Coag (PPP) [Relative time] 0.9 {INR} Normal The [facility] Comment on above: Result [...] Performed By: #### P T, PTT #### [address] PT Coag (PPP) [Time] 10.2 s Normal 9.0-12.9 The [facility] Comment on above: Result Comment: A he matocrit value greater than 55% may lead to inaccurate results in coagulation testing. Patients having hematocrit values >55% require a special collection tube for coagulation studies. Please contact the laboratory at [phone] for redraw instructions. Performed By: #### P T, PTT #### [place] [id number] [facility] Renal Function Panelon 10-25 Albumin [Mass/Vol] 3.7 g/dL Normal 3.5-5.7 The [facility] Comment on above: Performed By: #### B MP, MG #### [facility] [address] Anion gap [Moles/Vol] 10.8 mmol/L Normal 6.0-15.0 Th e [facility] Comment on above: Performed By: #### B MP, MG #### [facility] [address] [place] [address] [place] Calcium [Mass/Vol] 9.0 mg/dL Normal 8.6-10.3 The [facility] Comment on above: Performed By: #### B MP, MG #### [facility] [address] [place] [address] [place] Chloride [Moles/Vol] 105 mmol/L Normal 98-107 The [facility] Comment on above: Performed By: #### B MP, MG #### [place] [address] [place] CO2 [Moles/Vol] 27.9 mmol/L Normal 21.0-31.0 The [facility] Comment on above: Performed By: #### B MP, MG #### [place] [address] [place] Creatinine [Mass/Vol] 0.94 mg/dL Significan t change down 0.70-1.30 The [facility] Comment on above: Performed By: #### B MP, MG #### [place] [address] [place] Creatinine Clr Calc Pharmacy 152.74 Normal The [facility] Comment on above: Result Comment: PERF ORMED BY: [place] [address] PATHOLOGIST SALES MARKETING COORDINATOR VARUN ARGUETA M.D. Performed By: #### B MP, MG #### [place] [address] [place] GFR/1.73 sq M.predicted MDRD (S/P/Bld) [Vol rate/Area] mL/min/{1.73_m2} Normal The [facility] Comment on above: Performed By: #### B MP, MG #### [facility] [address] Glucose [Mass/Vol] 96 mg/dL Normal 70-100 The [facility] Comment on above: Result Comment: [place] Glucose Reference Range is dependent on time and content of last meal. Glucose of more than 200 mg/dL in a nonstressed, ambulatory subject supports the diagnosis of Diabetes Mellitus. ADA recommended reference range Performed By: #### B MP, MG #### [facility] [address] Phosphate [Mass/Vol] 4.1 mg/dL Normal 2.5-4.5 The [facility] Comment on above: Performed By: #### B MP, MG #### [address] Potassium [Moles/Vol] 3.7 mmol/L Normal 3.5-5.1 The [facility] Comment on above: Performed By: #### B MP, MG #### [address] Sodium [Moles/Vol] 140 mmol/L Normal 136-145 The [facility] Comment on above: Performed By: #### B MP, MG #### [address] Urea nitrogen [Mass/Vol] 17 mg/dL Normal 7-25 The [facility] Comment on above: Performed By: #### B MP, MG #### [address] US renal doppler limitedon 0 10-25-2024 US renal doppler limited [facility] [place] [address] Ultrasound Report Signed Patient: Tu Casiano I MR#: [id number] : 1995 Acct:[id number] Age/Sex: 29 / M ADM Date: 10/23/24 Loc: Room: [address] [place] [address] Type: DIS IN Attending Dr: Poli Florentino MD Ordering Provider: Lydia Rajan DO, RES Date of Service: 10/23/24 US/US renal doppler limited: Hypertension Copies to: Lydia Rajan DO, RES Poli Florentino MD Renal artery duplex examination performed using B-mode, color flow and spectral Doppler assessment. (CPT: 58109) INDICATION: FINDINGS: Aorta: PSV 92.5 cm/s Right [...] Jacobs MD,FACS,FSVS 10/25/2024 11:29 AM Dictation Location: [place] [address] Tech: Alka Ronnie Transcribed By: [facility] 10/25/24 1129 Dictated By: Kenji Jacobs MD 10/25/24 1128 Signed By: 10/25/24 1129 Normal [facility] Urine Cultureon 10-25-2024 Bacteria identified Cx Nom (U) <9,000 colonies/ml mixed bacterial skin contaminants 2 Days PERFORMED BY: [place] [address] PATHOLOGIST SALES MARKETING COORDINATOR VARUN ARGUETA M.D. Normal The [facility] Comment on above: Performed By: #### C UU #### [address] SWEETIE with Reflexon 10-24-2024 SWEETIE with Reflex Negative Normal Negative The [facility] Comment on above: Result Comment: Perf ormed at: [facility] [id number] Cardboard Cutter: Laurent Walker PhD, Phone: [phone] PERFORMED BY: [place] [address] PATHOLOGIST SALES MARKETING COORDINATOR VARUN ARGUETA M.D. Performed By: #### A NA CHOICE #### [facility] , ANCA Profile (ANCA+MPO+PR3)o n 10-24-2024 Antimyeloperoxidase (MPO) Abs <0.2 Normal 0.0-0.9 The [facility] Comment on above: Performed By: #### B MP, MG #### [address] Atypical pANCA <1:20 Normal Neg:<1:20 The [facility] Comment on above: Result Comment: The atypical pANCA pattern has been observed in a significant percentage of patients with ulcerative colitis, primary sclerosing cholangitis and autoimmune hepatitis. Performed at: [facility] [address] [id number] Cardboard Cutter: Ata Fletcher MD, Phone: [phone] Performed at: [facility] [address] [id number] Cardboard Cutter: Laurent Walker PhD, Phone: [phone] Performed By: #### B MP, MG #### [place] [address] [place] Cytoplasmic (C-ANCA) <1:20 Normal Neg:<1:20 The [facility] Comment on above: Performed By: #### B MP, MG #### [place] [address] [place] Perinuclear (P-ANCA) <1:20 Normal Neg:<1:20 The [facility] Comment on above: Result Comment: The presence of positive fluorescence exhibiting P-ANCA or C-ANCA patterns alone is not specific for the diagnosis of Christiano's Granulomatosis (WG) or microscopic polyangiitis. Decisions about treatment should not be based solely on ANCA IFA results. The International ANCA Group Consensus recommends follow up testing of positive sera with both IL- 3 and MPO-ANCA enzyme immunoassays. As many as 5% serum samples are positive only by EIA. Ref. AM J Clin Pathol 1999;111:507-513. Performed By: #### B MP, MG #### [address] Proteinase 3 (PR3) Antibodies <0.2 Normal 0.0-0.9 The [facility] Comment on above: Result Comment: PERF ORMED BY: [place] [address] PATHOLOGIST SALES MARKETING COORDINATOR VARUN ARGUETA M.D. Performed By: #### B BART, MG #### [address] Aldosteroneon 10-24-2024 Aldosterone <1.0 Normal 0.0-30.0 The [facility] Comment on above: Result Comment: This test was developed and its performance characteristics determined by [facility] [facility]. It has not been cleared or approved by the Food and Drug Administration. Performed at: [address] [id number] Cardboard Cutter: Ata Fletcher MD, Phone: [phone] PERFORMED BY: [place] [address] PATHOLOGIST SALES MARKETING COORDINATOR VARUN ARGUETA M.D. Performed By: #### B MP, MG #### [address] C-Reactive Proteinon 025 C-Reactive Protein 0.9 mg/dL High 0.0-0.5 The [facility] Comment on above: Result Comment: PERF ORMED BY: [place] [address] PATHOLOGIST SALES MARKETING COORDINATOR VARUN ARGUETA M.D. Performed By: #### B MP, MG #### [address] Complete Blood Count Auto Di ffon 10-24-2024 Basophils (Bld) [#/Vol] 0.2 10*3/uL Normal 0.0-0.2 The [facility] Comment on above: Performed By: #### B MP, MG #### [facility] [address] Basophils/100 WBC (Bld) 1.3 % Normal . T silvana [facility] Comment on above: Performed By: #### B MP, MG #### [facility] [address] [place] [address] [place] Eosinophils (Bld) [#/Vol] 0.1 10*3/uL Normal 0.0-0.45 The [facility] Comment on above: Performed By: #### B MP, MG #### [facility] [address] Eosinophils/100 WBC (Bld) 1.1 % Normal . [facility] Comment on above: Performed By: #### B MP, MG #### [address] Erythrocyte distribution width (RBC) [Ratio] 15.0 % High 12.0-14.8 The [facility] Comment on above: Performed By: #### B MP, MG #### [address] Hematocrit (Bld) [Volume fraction] 48.8 % Normal 38.8-50.0 The [facility] Comment on above: Performed By: #### B MP, MG #### [address] Hemoglobin (Bld) [Mass/Vol] 16.5 g/dL Normal 13.0-17.0 The [facility] Comment on above: Performed By: #### B MP, MG #### [facility] [address] [place] [address] [place] Lymphocytes (Bld) [#/Vol] 3.1 10*3/uL Normal 1.00-4.8 The [facility] Comment on above: Performed By: #### B MP, MG #### [place] [address] [place] Lymphocytes/100 WBC (Bld) 27.1 % Normal . [facility] Comment on above: Performed By: #### B MP, MG #### [address] MCH (RBC) [Entitic mass] 31.8 pg Normal 27.5-35.2 The [facility] Comment on above: Performed By: #### B MP, MG #### [address] MCV (RBC) [Entitic vol] 94.5 fL Normal 83.5-101 T [facility] Comment on above: Performed By: #### B MP, MG #### [address] Mean Corpuscular HGB Conc 33.7 g/dL Normal 32.5-35.6 The [facility] Comment on above: Performed By: #### B MP, MG #### [address] Monocytes (Bld) [#/Vol] 1.3 10*3/uL High 0.0-0.8 The [facility] Comment on above: Performed By: #### B MP, MG #### [address] Monocytes/100 WBC (Bld) 11.3 % Normal . [facility] Comment on above: Performed By: #### B MP, MG #### [address] Neutrophils (Bld) [#/Vol] 6.9 10*3/uL Normal 1.8-7.7 The [facility] Comment on above: Performed By: #### B MP, MG #### [address] Neutrophils/100 WBC (Bld) 59.2 % Normal . The [facility] Comment on above: Performed By: #### B MP, MG #### [address] NRBC% 0.1 /100{WBC} Normal 0-0.5 The [facility] Comment on above: Performed By: #### B MP, MG #### [facility] [address] Platelet mean volume (Bld) [Entitic vol] 10.0 fL Normal 6.6-10.1 The [facility] Comment on above: Performed By: #### B MP, MG #### [facility] [address] Platelets (Bld) [#/Vol] 151 10*3/uL Normal 150-450 The [facility] Comment on above: Performed By: #### B MP, MG #### [address] RBC (Bld) [#/Vol] 5.17 10*6/uL Normal 3.90-5.60 The [facility] Comment on above: Performed By: #### B MP, MG #### [address] WBC (Bld) [#/Vol] 11.6 10*3/uL High 4.1-10.5 The [facility] Comment on above: Performed By: #### B MP, MG #### [address] White Blood Count 11.6 [CFU]/mL High 4.1-10.5 The [facility] Comment on above: Performed By: #### B MP, MG #### [address] Comprehensive Metabolic Pane trent 10-24-2024 Albumin [Mass/Vol] 3.7 g/dL Normal 3.5-5.7 The [facility] Comment on above: Performed By: #### B MP, MG #### [address] Albumin/Globulin [Mass ratio] 1.5 {ratio} Normal [facility] Comment on above: Performed By: #### B MP, MG #### [address] ALP [Catalytic activity/Vol] 65 U/L Normal 34-104 The [facility] Comment on above: Performed By: #### B MP, MG #### [address] ALT [Catalytic activity/Vol] 35 U/L Normal 7-52 The [facility] Comment on above: Performed By: #### B MP, MG #### [facility] [address] Anion gap [Moles/Vol] 9.8 mmol/L Normal 6.0-15.0 The [facility] Comment on above: Performed By: #### B MP, MG #### [address] AST [Catalytic activity/Vol] 35 U/L Normal 13-39 The [facility] Comment on above: Performed By: #### B MP, MG #### [address] Bilirubin [Mass/Vol] 0.6 mg/dL Normal 0.3-1.0 The [facility] Comment on above: Performed By: #### B MP, MG #### [place] [address] [place] Calcium [Mass/Vol] 8.9 mg/dL Normal 8.6-10.3 The [facility] Comment on above: Performed By: #### B MP, MG #### [place] [address] [place] Chloride [Moles/Vol] 103 mmol/L Normal 98-107 The [facility] Comment on above: Performed By: #### B MP, MG #### [place] [address] [place] CO2 [Moles/Vol] 28.7 mmol/L Normal 21.0-31.0 The [facility] Comment on above: Performed By: #### B MP, MG #### [place] [address] [place] Creatinine [Mass/Vol] 1.54 mg/dL Significan t change down 0.70-1.30 The [facility] Comment on above: Performed By: #### B MP, MG #### [address] Creatinine Clr Calc Pharmacy 94.49 Normal The [facility] Comment on above: Performed By: #### B MP, MG #### [place] [address] [place] GFR/1.73 sq M.predicted MDRD (S/P/Bld) [Vol rate/Area] mL/min/{1.73_m2} Normal The [facility] Comment on above: Performed By: #### B MP, MG #### [address] Globulin (S) [Mass/Vol] 2.5 g/dL Normal T he [facility] Comment on above: Performed By: #### B MP, MG #### [address] Glucose [Mass/Vol] 97 mg/dL Normal 70-100 The [facility] Comment on above: Result Comment: [facility] Glucose Reference Range is dependent on time and content of last meal. Glucose of more than 200 mg/dL in a nonstressed, ambulatory subject supports the diagnosis of Diabetes Mellitus. ADA recommended reference range Performed By: #### B MP, MG #### [address] Potassium [Moles/Vol] 3.5 mmol/L Normal 3.5-5.1 The [facility] Comment on above: Performed By: #### B MP, MG #### [address] Protein [Mass/Vol] 6.2 g/dL Low 6.4-8.9 The [facility] Comment on above: Performed By: #### B MP, MG #### [address] Sodium [Moles/Vol] 138 mmol/L Normal 136-145 The [facility] Comment on above: Performed By: #### B MP, MG #### [address] Urea nitrogen [Mass/Vol] 19 mg/dL Normal 7-25 The [facility] Comment on above: Performed By: #### B MP, MG #### [address] Erythrocyte Sedimentation Ra yokasta 10-24-2024 ESR (Bld) [Velocity] 2 mm/h Normal 0-14 The [facility] Comment on above: Result Comment: PERF ORMED BY: [place] [address] PATHOLOGIST SALES MARKETING COORDINATOR VARUN ARGUETA M.D. Performed By: #### B MP, MG #### [address] HIV 1/O/2 Antigen/Antibodyon 10-24-2024 HIV Screen 4th Generation Non-Reactive Normal Non Reactive [facility] Comment on above: Result Comment: HIV- 1/HIV-2 antibodies and HIV-1 p24 antigen were NOT detected. There is no laboratory evidence of HIV infection. HIV Negative Performed at: [facility] [address] Cardboard Cutter: Laurent Walker PhD, Phone: [phone] PERFORMED BY: [place] [address] PATHOLOGIST SALES MARKETING COORDINATOR VARUN ARGUETA M.D. Performed By: #### B MP, MG #### [address] Hepatitis Acute Panelon 09-27 HBsAg Screen Negative Normal Negative [facility] Comment on above: Performed By: #### B MP, MG #### [address] Hepatitis A Antibody IgM Negative Normal Negative The [facility] Comment on above: Result Comment: A ne gative anti-HAV IgM result suggests no recent or current HAV infection. Performed By: #### B MP, MG #### [address] Hepatitis B Core Antibody IgM Negative Normal Negative The [facility] Comment on above: Performed By: #### B MP, MG #### [address] Hepatitis C Virus Antibody Non-Reactive Normal Non Reactive The [facility] Comment on above: Performed By: #### B MP, MG #### [address] Interpretation Hepatitis C Comment Normal . The [facility] Comment on above: Result Comment: Not infected with HCV unless early or acute infection is suspected (which may be delayed in an immunocompromised individual), or other evidence exists to indicate HCV infection. Performed at: [address] [id number] Cardboard Cutter: Laurent Walker PhD, Phone: [phone] PERFORMED BY: [place] [address] PATHOLOGIST SALES MARKETING COORDINATOR VARUN ARGUETA M.D. Performed By: #### B MP, MG #### [address] Renin Activityon 10-24-2024 Renin Activity 10.530 Normal 0.167-5.380 The [facility] Comment on above: Result Comment: This test was developed and its performance characteristics determined by [facility]. It has not been cleared or approved by the Food and Drug Administration. Performed at: [address] [id number] Cardboard Cutter: Ata Fletcher MD, Phone: [phone] PERFORMED BY: [place] [address] PATHOLOGIST SALES MARKETING COORDINATOR VARUN ARGUETA M.D. Performed By: #### B MP, MG #### [address] Basic Metabolic Panelon 06-2 Anion gap [Moles/Vol] 9.6 mmol/L Normal 6.0-15.0 The [facility] Comment on above: Performed By: #### P HOS, BMP #### [address] Calcium [Mass/Vol] 9.3 mg/dL Normal 8.6-10.3 The [facility] Comment on above: Performed By: #### P HOS, BMP #### [place] [address] [place] Chloride [Moles/Vol] 102 mmol/L Normal 98-107 The [facility] Comment on above: Performed By: #### P HOS, BMP #### [address] CO2 [Moles/Vol] 27.3 mmol/L Normal 21.0-31.0 The [facility] Comment on above: Performed By: #### P HOS, BMP #### [place] [address] [place] Creatinine [Mass/Vol] 3.60 mg/dL Significan t change down 0.70-1.30 The [facility] Comment on above: Performed By: #### P HOS, BMP #### [place] [address] [place] Creatinine Clr Calc Pharmacy 40.42 Normal The [facility] Comment on above: Result Comment: PERF ORMED BY: [place] [address] PATHOLOGIST SALES MARKETING COORDINATOR VARUN ARGUETA M.D. Performed By: #### P HOS, BMP #### [place] [address] [place] GFR/1.73 sq M.predicted MDRD (S/P/Bld) [Vol rate/Area] 22.745 mL/min/{1.73_m2} Normal The [facility] Comment on above: Performed By: #### P HOS, BMP #### [place] [address] [place] Glucose [Mass/Vol] 143 mg/dL High 70-100 The [facility] Comment on above: Result Comment: [place] Glucose Reference Range is dependent on time and content of last meal. Glucose of more than 200 mg/dL in a nonstressed, ambulatory subject supports the diagnosis of Diabetes Mellitus. ADA recommended reference range Performed By: #### P HOS, BMP #### [place] [address] [place] Potassium [Moles/Vol] 3.9 mmol/L Normal 3.5-5.1 The [facility] Comment on above: Performed By: #### P HOS, BMP #### [address] Sodium [Moles/Vol] 135 mmol/L Low 136-145 The [facility] Comment on above: Performed By: #### P HOS, BMP #### [address] Urea nitrogen [Mass/Vol] 24 mg/dL Normal 7-25 The [facility] Comment on above: Performed By: #### P HOS, BMP #### [address] Anion gap [Moles/Vol] 15.7 mmol/L High 6.0-15.0 Th e [facility] Comment on above: Performed By: #### B MP, MG #### [address] Calcium [Mass/Vol] 8.5 mg/dL Low 8.6-10.3 The [facility] Comment on above: Performed By: #### B MP, MG #### [address] Chloride [Moles/Vol] 100 mmol/L Normal 98-107 The [facility] Comment on above: Performed By: #### B MP, MG #### [address] CO2 [Moles/Vol] 22.9 mmol/L Normal 21.0-31.0 The [facility] Comment on above: Performed By: #### B MP, MG #### [address] Creatinine [Mass/Vol] 5.07 mg/dL Significan t change down 0.70-1.30 The [facility] Comment on above: Performed By: #### B MP, MG #### [place] [address] [place] Creatinine Clr Calc Pharmacy 28.70 Normal The [facility] Comment on above: Result Comment: PERF ORMED BY: [place] [address] PATHOLOGIST SALES MARKETING COORDINATOR VARUN ARGUETA M.D. Performed By: #### B MP, MG #### [place] [address] [place] GFR/1.73 sq M.predicted MDRD (S/P/Bld) [Vol rate/Area] 15.082 mL/min/{1.73_m2} Normal The [facility] Comment on above: Performed By: #### B MP, MG #### [address] Glucose [Mass/Vol] 103 mg/dL High 70-100 The [facility] Comment on above: Result Comment: [facility] Glucose Reference Range is dependent on time and content of last meal. Glucose of more than 200 mg/dL in a nonstressed, ambulatory subject supports the diagnosis of Diabetes Mellitus. ADA recommended reference range Performed By: #### B MP, MG #### [address] Potassium [Moles/Vol] 3.6 mmol/L Normal 3.5-5.1 The [facility] Comment on above: Performed By: #### B MP, MG #### [address] Sodium [Moles/Vol] 135 mmol/L Low 136-145 The [facility] Comment on above: Performed By: #### B MP, MG #### [place] [address] [place] Urea nitrogen [Mass/Vol] 27 mg/dL High 7-25 The [facility] Comment on above: Performed By: #### B MP, MG #### [address] Anion gap [Moles/Vol] 14.5 mmol/L Normal 6.0-15.0 Th e [facility] Comment on above: Performed By: #### B MP, MG #### [place] [address] [place] Calcium [Mass/Vol] 8.0 mg/dL Low 8.6-10.3 The [facility] Comment on above: Performed By: #### B MP, MG #### [address] Chloride [Moles/Vol] 100 mmol/L Normal 98-107 The [facility] Comment on above: Performed By: #### B MP, MG #### [address] CO2 [Moles/Vol] 21.9 mmol/L Normal 21.0-31.0 The [facility] Comment on above: Performed By: #### B MP, MG #### [address] Creatinine [Mass/Vol] 5.88 mg/dL High 0.70-1.30 The [facility] Comment on above: Performed By: #### B MP, MG #### [address] GFR/1.73 sq M.predicted MDRD (S/P/Bld) [Vol rate/Area] 12.624 mL/min/{1.73_m2} Normal The [facility] Comment on above: Performed By: #### B MP, MG #### [address] Glucose [Mass/Vol] 117 mg/dL High 70-100 The [facility] Comment on above: Result Comment: [place] Glucose Reference Range is dependent on time and content of last meal. Glucose of more than 200 mg/dL in a nonstressed, ambulatory subject supports the diagnosis of Diabetes Mellitus. ADA recommended reference range Performed By: #### B MP, MG #### [address] Potassium [Moles/Vol] 3.4 mmol/L Low 3.5-5.1 The [facility] Comment on above: Performed By: #### B MP, MG #### [place] [address] [place] Sodium [Moles/Vol] 133 mmol/L Low 136-145 The [facility] Comment on above: Performed By: #### B MP, MG #### [address] Urea nitrogen [Mass/Vol] 27 mg/dL High 7-25 The [facility] Comment on above: Performed By: #### B MP, MG #### [address] Catecholamines, Ur Free, 24H jocelyne 10-23-2024 Dopamine, 24 Hr Urine 341 Normal 0-510 The [facility] Comment on above: Order Comment: TOTAL VOLUME = 3625mL List any foods/meds the pt has taken (see Test/Proc Notes):: water Result Comment: Perf ormed at: - [facility] [id number] Cardboard Cutter: Ata Fletcher MD, Phone: [phone] PERFORMED BY: [place] [address] PATHOLOGIST SALES MARKETING COORDINATOR VARUN ARGUETA M.D. Performed By: #### C ATEC FR24 #### [facility] , Dopamine, Urine 94 Normal Undefined The [facility] Comment on above: Order Comment: TOTAL VOLUME = 3625mL List any foods/meds the pt has taken (see Test/Proc Notes):: water Result Comment: This test was developed and its performance characteristics determined by [facility]. It has not been cleared or approved by the Food and Drug Administration. Performed By: #### C ATEC FR24 #### [facility] , Epinephrine, Urine <3 Normal Undefined The [facility] Comment on above: Order Comment: [...] Epinephrine, Urine, 24Hr <11 Normal 0-20 The [facility] Comment on above: Order Comment: TOTAL VOLUME = 3625mL List any foods/meds the pt has taken (see Test/Proc Notes):: water Performed By: #### C ATEC FR24 #### [facility] , Norepinephrine, 24 Hr Urine 62 Normal 0-135 The [facility] Comment on above: Order Comment: TOTAL VOLUME = 3625mL List any foods/meds the pt has taken (see Test/Proc Notes):: water Performed By: #### C ATEC FR24 #### [facility] , Norepinephrine, Urine 17 Normal Undefined The [facility] Comment on above: Order [...] (Bld) [#/Vol] 0.2 10*3/uL Normal 0.0-0.2 The [facility] Comment on above: Result Comment: PERF ORMED BY: [place] [address] PATHOLOGIST SALES MARKETING COORDINATOR VARUN ARGUETA M.D. Performed By: #### B MP, MG #### [facility] [address] [place] [address] [place] Basophils/100 WBC (Bld) 1.4 % Normal . T silvana [facility] Comment on above: Performed By: #### B MP, MG #### [facility] [address] [place] [address] [place] Eosinophils (Bld) [#/Vol] 0.2 10*3/uL Normal 0.0-0.45 The [facility] Comment on above: Performed By: #### B MP, MG #### [place] [address] [place] Eosinophils/100 WBC (Bld) 1.4 % Normal . The [facility] Comment on above: Performed By: #### B MP, MG #### [address] Erythrocyte distribution width (RBC) [Ratio] 14.6 % Normal 12.0-14.8 The [facility] Comment on above: Performed By: #### B MP, MG #### [address] Hematocrit (Bld) [Volume fraction] 52.3 % High 38.8-50.0 The [facility] Comment on above: Performed By: #### B MP, MG #### [address] Hemoglobin (Bld) [Mass/Vol] 18.0 g/dL High 13.0-17.0 The [facility] Comment on above: Performed By: #### B MP, MG #### [address] Lymphocytes (Bld) [#/Vol] 2.9 10*3/uL Normal 1.00-4.8 The [facility] Comment on above: Performed By: #### B MP, MG #### [address] Lymphocytes/100 WBC (Bld) 20.4 % Normal . The [facility] Comment on above: Performed By: #### B MP, MG #### [address] MCH (RBC) [Entitic mass] 32.2 pg Normal 27.5-35.2 The [facility] Comment on above: Performed By: #### B MP, MG #### [address] MCV (RBC) [Entitic vol] 93.4 fL Normal 83.5-101 T he [facility] Comment on above: Performed By: #### B MP, MG #### [address] Mean Corpuscular HGB Conc 34.5 g/dL Normal 32.5-35.6 The [facility] Comment on above: Performed By: #### B MP, MG #### [facility] [address] [place] [address] [place] Monocytes (Bld) [#/Vol] 1.6 10*3/uL High 0.0-0.8 The [facility] Comment on above: Performed By: #### B MP, MG #### [facility] [address] [place] [address] [place] Monocytes/100 WBC (Bld) 11.2 % Normal . [facility] Comment on above: Performed By: #### B MP, MG #### [facility] [address] [place] [address] [place] Neutrophils (Bld) [#/Vol] 9.3 10*3/uL High 1.8-7.7 The [facility] Comment on above: Performed By: #### B MP, MG #### [facility] [address] [place] [address] [place] Neutrophils/100 WBC (Bld) 65.6 % Normal . The [facility] Comment on above: Performed By: #### B MP, MG #### [facility] [address] [place] [address] [place] NRBC% 0.2 /100{WBC} Normal 0-0.5 The [facility] Comment on above: Performed By: #### B MP, MG #### [facility] [address] [place] [address] [place] Platelet mean volume (Bld) [Entitic vol] 9.8 fL Normal 6.6-10.1 The [facility] Comment on above: Performed By: #### B MP, MG #### [facility] [address] [place] [address] [place] Platelets (Bld) [#/Vol] 159 10*3/uL Normal 150-450 The [facility] Comment on above: Performed By: #### B MP, MG #### [facility] [address] [place] [address] [place] RBC (Bld) [#/Vol] 5.60 10*6/uL Normal 3.90-5.60 The [facility] Comment on above: Performed By: #### B MP, MG #### [address] WBC (Bld) [#/Vol] 14.3 10*3/uL High 4.1-10.5 The [facility] Comment on above: Performed By: #### B MP, MG #### [address] White Blood Count 14.3 [CFU]/mL High 4.1-10.5 The [facility] Comment on above: Performed By: #### B MP, MG #### [place] [address] [place] Dipstick and Microscopicon 0 10-23-2024 Appearance (U) Clear Normal Clear The [facility] Comment on above: Order Comment: Name Collection Type:: Clean-Voided Midstream Performed By: #### B MP, MG #### [address] Bacteria,Urine Rare Normal None Seen The [facility] Comment on above: Order Comment: Name Collection Type:: Clean-Voided Midstream Performed By: #### B MP, MG #### [place] [address] [place] Bilirubin,Urine Negative Normal Negative The [facility] Comment on above: Order Comment: Name Collection Type:: Clean-Voided Midstream Performed By: #### B MP, MG #### [place] [address] [place] Color (U) Light-Yellow Normal Yellow The [facility] Comment on above: Order Comment: Name Collection Type:: Clean-Voided Midstream Performed By: #### B MP, MG #### [place] [address] [place] Glucose Ql (U) 300 mg/dL Normal Normal The [facility] Comment on above: Order Comment: Name Collection Type:: Clean-Voided Midstream Performed By: #### B MP, MG #### [place] [address] [place] Hyaline Casts,Urine None Normal 0-8 The [facility] Comment on above: Order Comment: Name Collection Type:: Clean-Voided Midstream Performed By: #### B MP, MG #### [address] Ketones Ql (U) Negative Normal Negative The [facility] Comment on above: Order Comment: Name Collection Type:: Clean-Voided Midstream Performed By: #### B MP, MG #### [address] Leukocyte esterase Test strip Ql (U) Negative Normal Negative The [facility] Comment on above: Order Comment: Name Collection Type:: Clean-Voided Midstream Performed By: #### B MP, MG #### [address] Mucus,Urine Rare Normal The [facility] Comment on above: Order Comment: Name Collection Type:: Clean-Voided Midstream Result Comment: PERF ORMED BY: [place] [address] PATHOLOGIST SALES MARKETING COORDINATOR VARUN ARGUETA M.D. Performed By: #### B MP, MG #### [place] [address] [place] Nitrite,Urine Negative Normal Negative The [facility] Comment on above: Order Comment: Name Collection Type:: Clean-Voided Midstream Performed By: #### B MP, MG #### [place] [address] [place] Occult Blood,Urine 2+ Normal Negative The [facility] Comment on above: Order Comment: Name Collection Type:: Clean-Voided Midstream Result Comment: PERF ORMED BY: [place] [address] PATHOLOGIST SALES MARKETING COORDINATOR VARUN ARGUETA M.D. Performed By: #### B MP, MG #### [address] pH (U) 5.5 [pH] Normal 5.0-9.0 The [facility] Comment on above: Order Comment: Name Collection Type:: Clean-Voided Midstream Performed By: #### B MP, MG #### [place] [address] [place] Protein,Urine Trace Normal Negative The [facility] Comment on above: Order Comment: Name Collection Type:: Clean-Voided Midstream Performed By: #### B MP, MG #### [address] RBC,Urine 1-2 Normal 0-4 The [facility] Comment on above: Order Comment: Name Collection Type:: Clean-Voided Midstream Performed By: #### B MP, MG #### [address] Specificy [place],Urine 1.009 Normal 1.001-1.030 The [facility] Comment on above: Order Comment: Name Collection Type:: Clean-Voided Midstream Performed By: #### B MP, MG #### [address] Squamous Epithelial Cell,Urine 1-2 Normal 0-2 The [facility] Comment on above: Order Comment: Name Collection Type:: Clean-Voided Midstream Performed By: #### B MP, MG #### [address] Urobilinogen,Urine Normal Normal Normal The [facility] Comment on above: Order Comment: Name Collection Type:: Clean-Voided Midstream Performed By: #### B MP, MG #### [place] [address] [place] WBC,Urine 1-2 Normal 0-4 The [facility] Comment on above: Order Comment: Name Collection Type:: Clean-Voided Midstream Performed By: #### B MP, MG #### [address] Drug Screen,Urineon 10-24-19 25 Amphetamine Screen,Urine Negative Normal Negative The [facility] Comment on above: Performed By: #### B MP, MG #### [address] Barbiturate Screen,Urine Negative Normal Negative The [facility] Comment on above: Performed By: #### B MP, MG #### [address] Benzodiazepines Screen,Urine Negative Normal Negative The [facility] Comment on above: Performed By: #### B MP, MG #### [address] Cannabinoid Screen,Urine Positive Normal Negative The [facility] Comment on above: Result Comment: Thes e are unconfirmed results and should not be used for legal purposes. Drug Cut-Off Concentration: AMPH 1000 ng/mL JOSE LUIS 200 ng/mL CANDIDO 200 ng/mL COCM 300 ng/mL OP 300 ng/mL PCP 25 ng/mL THC 20 ng/mL PERFORMED BY: [place] [address] PATHOLOGIST SALES MARKETING COORDINATOR VARUN ARGUETA M.D. Performed By: #### B MP, MG #### [address] Cocaine Screen,Urine Negative Normal Negative The [facility] Comment on above: Performed By: #### B MP, MG #### [address] Opiate Screen,Urine Negative Normal Negative The [facility] Comment on above: Performed By: #### B MP, MG #### [address] Phencyclidine Screen,Urine Negative Normal Negative The [facility] Comment on above: Performed By: #### B MP, MG #### [address] Magnesiumon 10-23-2024 Magnesium [Mass/Vol] 2.3 mg/dL Normal 1.9-2.7 The [facility] Comment on above: Result Comment: PERF ORMED BY: [place] [address] PATHOLOGIST SALES MARKETING COORDINATOR VARUN ARGUETA M.D. Performed By: #### B MP, MG #### [address] [place] [address] [place] Phosphoruson 10-23-2024 Phosphate [Mass/Vol] 2.1 mg/dL Low 2.5-4.5 The [facility] Comment on above: Result Comment: PERF ORMED BY: [place] [address] PATHOLOGIST SALES MARKETING COORDINATOR VARUN ARGUETA M.D. Performed By: #### P HOS, BMP #### [address] Protein Creat Ratio Ur Rando mon 10-23-2024 Creatinine, Urine (Random) 87.00 mg/dL Normal The [facility] Comment on above: Result Comment: No r eference range established Performed By: #### B MP, MG #### [address] Protein (U) [Mass/Vol] 39 mg/dL High 0-9 Th e [facility] Comment on above: Performed By: #### B MP, MG #### [address] Urine Protein/Creatinine Ratio 448 mg/g{Cre} High 0-200 The [facility] Comment on above: Result Comment: PERF ORMED BY: [place] [address] PATHOLOGIST SALES MARKETING COORDINATOR VARUN ARGUETA M.D. Performed By: #### B MP, MG #### [address] US renal BIon 10-23-2024 US renal BI [facility] [place] [address] Ultrasound Report Signed Patient: Tu Casiano I MR#: [id number] : 1995 Acct:[id number] Age/Sex: 29 / M ADM Date: 10/23/24 Loc: Room: [address] [place] [address] Type: DIS IN Attending Dr: Poli Florentino [...] Savage M.D. 10/23/2024 9:51 AM Dictation Location: [place] [address] Tech: [facility] Transcribed By: ADELITA 10/23/2451 Dictated By: Zach Savage MD 10/23/2449 Signed By: 10/23/2451 Normal The [facility] Uric Acidon 10-23-2024 Urate [Mass/Vol] 11.3 mg/dL High 4.4-7.6 [facility] Comment on above: Result Comment: PERF ORMED BY: [place] [address] PATHOLOGIST SALES MARKETING COORDINATOR VARUN ARGUETA M.D. Performed By: #### B MG BART #### [address] Basophils/100 WBC Manual cnt (Bld)Ordered By: Nicci Severino on 10-22-2024 Basophils/100 WBC (Bld) 0.0 % Low 0.2-2.0 [facility] Eosinophils/100 WBC Manual c nt (Bld)Ordered By: Nicci Severino on 10-22-2024 Eosinophils/100 WBC (Bld) 1.0 % 0.9-7.0 [facility] Erythrocyte distribution wid th Auto (RBC) [Ratio]Ordered By: Allison Leo on 10-22-2024 Erythrocyte distribution width (RBC) [Ratio] 13.4 % 11.0-15.0 [facility] Estimated glomerular filtrat ion rate (GFR) non- AmericanOrdered By: Nicci Severino on 10-22-2024 GFR/1.73 sq M.predicted among non-blacks MDRD (S/P/Bld) [Vol rate/Area] 8 mL/min/{1.73_m2} Low >=60 mL/min/1.73m 2 [facility] Globulin Calc (S) [Mass/Vol] Ordered By: Nicci Severino on 10-22-2024 Globulin (S) [Mass/Vol] 4.1 g/dL [facility] Hematocrit Auto (Bld) [Volum e fraction]Ordered By: Allison Leo on 10-22-2024 Hematocrit (Bld) [Volume fraction] 55.3 % High 42.0-54.0 [facility] Hemoglobin [Mass/volume] in BloodOrdered By: Allison Leo on 10-22-2024 Hemoglobin (Bld) [Mass/Vol] 19.9 g/dL High 14.0-18.0 [facility] Laboratory - Chemistry and C hemistry - challengeOrdered By: Nicci Severino on 10-22-2024 Albumin [Mass/Vol] 3.6 g/dL 3.4-5.0 [facility] ALP [Catalytic activity/Vol] 112 U/L 46-116 [facility] ALT [Catalytic activity/Vol] 63 U/L 16-63 [facility] AST [Catalytic activity/Vol] 56 U/L High 15-37 [facility] Bilirubin [Mass/Vol] 0.7 mg/dL 0.2-1.0 [facility] Calcium [Mass/Vol] 9.4 mg/dL 8.5-10.1 [facility] Chloride [Moles/Vol] 91 mmol/L Low 98-107 [facility] CK [Catalytic activity/Vol] 89 U/L 39-308 [facility] CK.MB [Mass/Vol] 1.84 ng/mL <=3.60 [facility] CO2 [Moles/Vol] 24.3 mmol/L 21.0-32.0 [facility] Creatinine [Mass/Vol] 7.73 mg/dL Critically high 0.70-1.30 [facility] Comment on above: RESULTS CALLED TO FRANCINE Jack DO @BY Maurice Marie, MLTat 2116 GFR/1.73 sq M.predicted MDRD (S/P/Bld) [Vol rate/Area] 10 mL/min/{1.73_m2} Low >=60 mL/min/1.73m 2 [facility] Glucose [Mass/Vol] 138 mg/dL High 74-106 [facility] Lactate [Moles/Vol] 1.7 mmol/L 0.4-2.0 [facility] Potassium [Moles/Vol] 3.3 mmol/L Low 3.5-5.1 [facility] Protein [Mass/Vol] 7.7 g/dL 6.4-8.2 [facility] Sodium [Moles/Vol] 131 mmol/L Low 136-145 [facility] Urea nitrogen [Mass/Vol] 31.0 mg/dL High 7.0-18.0 [facility] Urea nitrogen/Creatinine [Mass ratio] 4.0 mg/mg [facility] Laboratory - Hematology and Cell countsOrdered By: Nicci Severino on 10-22-2024 Lymphocytes/100 WBC (Bld) 19.0 % Low 20.5-60.0 [facility] Monocytes/100 WBC (Bld) 14.0 % High 1.7-12.0 [facility] Leukocytes [#/volume] correc eryn for nucleated erythrocytes in Blood by Automated counOrdered By: Allison Leo on 10-22-2024 WBC corrected for nucl RBC Auto (Bld) [#/Vol] 18.8 10 3/uL High 4.0-11.0 [facility] MCH Auto (RBC) [Entitic mass ]Ordered By: Allison Leo on 10-22-2024 MCH (RBC) [Entitic mass] 32.4 pg 25.9-34.0 [facility] MCHC Auto (RBC) [Mass/Vol]Or dered By: Allison Leo on 10-22-2024 MCHC (RBC) [Mass/Vol] 36.0 g/dL High 29.9-35.2 [facility] [place] MCV Auto (RBC) [Entitic vol] Ordered By: Allison Leo on 10-22-2024 MCV (RBC) [Entitic vol] 89.9 fL 80.0-94.0 [facility] No Panel InformationOrdered By: Nicci Severino on 10-22-2024 Absolute Basophils (Manual) 0.00 10 3/uL 0.00-0.10 [facility] Eosinophils # (Manual) 0.18 10 3/uL 0.00-0.70 [facility] Lymphocytes # (Manual) 3.57 10 3/uL 1.20-3.80 [facility] Monocytes # (Manual) 2.63 10 3/uL High 0.30-0.80 [facility] Segmented Neutrophils # (Manual) 12.40 10 3/uL High 1.4-6.5 [facility] Troponin I High Sensitivity 10.0 pg/mL 4.0-76.1 [facility] Comment on above: CUT-OFF POINTS HAVE [...] volume (Bld) [Entitic vol] 11.4 fL 9.5-13.5 [facility] Platelets Auto (Bld) [#/Vol] Ordered By: Allison Leo on 10-22-2024 Platelets (Bld) [#/Vol] 211 10 3/uL 150-450 [facility] RBC Auto (Bld) [#/Vol]Ordere d By: Allison Leo on 10-22-2024 RBC (Bld) [#/Vol] 6.15 10 6/uL High 4.70-6.10 [facility] Segmented neutrophils/100 WB C Manual cnt (Bld)Ordered By: Nicci Severino on 10-22-2024 Segmented neutrophils/100 WBC (Bld) 66.0 % 43.0-75.0 [facility] Serum or plasma albumin/glob ulin mass ratioOrdered By: Nicci Severino on 10-22-2024 Albumin/Globulin [Mass ratio] 0.9 {ratio} [facility] Serum or plasma anion gap de terminationOrdered By: Nicci Severino on 10-22-2024 Anion gap [Moles/Vol] 19.0 mmol/L [facility] Telephone Encounteron 2024 Air Breaker Operator Authentication Interface Message Text Patient sent a second request for oxycodone in MyChart 07/25/2024. Normal [facility] Anesthesia Postprocedure Akosua luationon 07-23-2024 Air Breaker Operator Authentication Interface Message Text Anesthesia Postoperative Assessment: [...] [facility] Anesthesia Preprocedure Eval uationon 07-23-2024 Air Breaker Operator Authentication Interface Message Text ASA: 2 No [...] were discussed with the patient and/or legal sales representative marine supplies. The risks, benefits and alternatives were reviewed. Questions regarding anesthesia were answered. Patient and/or legal sales representative marine supplies knows such anesthetics and procedures may be performed by Resident physicians, Certified Anesthesiologist Assistants, or Certified Nurse Anesthetists under the supervision of a physician. The patient /or the patient's legal sales representative marine supplies agree with the plan for anesthesia. MHPATFORM Normal [facility] Anesthesia Transfer Of Careo n 07-23-2024 Air Breaker Operator Authentication Interface Message Text Patient taken to [...] Cely Puente MD Anesthesiologist: Salinas Saldaña MD TELLERS SUPERVISOR: Jessica Aguilar APRN-LAUREN Anesthesia Student: Carolina Tamez [...] report was received. 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.119A] * Hand laceration involving tendon, right, subsequent encounter [S61.411D, S66.921D] Procedures: Right small finger hardware removal Surgeon(s): Surgeon(s): Cely Puente MD Staff: Scrub: Maryam Mao Air Pollution Inspector Nurse: Lidya Williamson RN Board Setter: Emelina Diego DO; Cristopher Kaur DMD, MD Anesthesia: Consult Anesthesiologist: Salinas Saldaña MD TELLERS SUPERVISOR: Jessica Aguilar APRN-CRNA Anesthesia Student: Carolina Tamez [...] Diego DO 07/23/2024 2:21 PM Normal [facility] [employer] [facility] OP Noteon 07-23-2024 Air Breaker Operator Authentication Interface Message Text OPERATIVE NOTE Plastic Surgery Name: Tu Casiano CSN: [id number] Surgical Age: [age] year old Date of [...] Care Complete Surgeon(s): Primary: Cely Puente MD 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 Surgeon: Scrub: Maryam Mao Air Pollution Inspector Nurse: Lidya Williamson RN Board Setter: Emelina Diego DO; Cristopher Kaur DMD, MD [...] the procedure. Emelina Diego, DO Normal [facility] PAT Call Historyon Air Breaker Operator Authentication Interface Message Text Telephone History Tu Casiano, [id number] 07/22/2024 Patient was identified by name and [...] procedure with Dr. Puente on 07/23/24 at [facility] ED Visit (05/30/2024) Partial Note- [...] 5th digit. Patient was transferred here from [facility] for surgical consultation. A/P 28-year-old male with a past medical history listed above who presents to the emergency department as a transfer from [facility] for hand surgery consult. On initial presentation [...] and pain control prior to evaluation at [facility]. Hand surgery was consulted, evaluated the [...] inc (more content not included)... Normal [facility] Telephone Encounteron 2024 Air Breaker Operator Authentication Interface Message Text Pt called to check status of refill request. Normal [facility] [facility] XR FINGERS RIGHT 3 VIEWSon 0 [...] loosening. Right finger MACRO: None Normal [facility] [employer] [facility] XR Finger - right Viewson EXAMINATION: [...] ViewsOrder ed By: Daniel Rosado on 07-11-2024 [employer] Work Phone: Progress Noteson 07-09-2024 Air Breaker Operator Authentication Interface Message Text Post Operative Visit [...] Nick PA-C 07/09/24 2:10 PM Normal The [employer] Air Breaker Operator Authentication Interface Message Text OCCUPATIONAL THERAPY HAND TREATMENT Patient left without being seen. No skilled OT provided. Federico Galeana, OTR/L, CHT Normal [facility] [employer] [facility] XR Finger - right Viewson Radiology Study observation (narrative) [facility] Progress Noteson 06-23-2024 Air Breaker Operator Authentication Interface Message Text Post Operative Visit [...] Nick PA-C 06/23/24 12:25 PM Normal [facility] [employer] [facility] Air Breaker Operator Authentication Interface Message Text OCCUPATIONAL THERAPY HAND [...] updated medication list. 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 Identification [...] Stat (more content not included)... Normal [facility] [facility] Progress Noteson 06-15-2024 Air Breaker Operator Authentication Interface Message Text Post Operative Visit [...] Nick PA-C 06/15/24 12:15 PM Normal [facility] [employer] Air Breaker Operator Authentication Interface Message Text OCCUPATIONAL THERAPY HAND [...] updated medication list. 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 Identification [...] Pt (more content not included)... Normal [facility] [employer] [facility] Telephone Encounteron 2024 Air Breaker Operator Authentication Interface Message Text Spoke to patient [...] Offered to see him in clinic at [place] location for in person assessment and possible [...] Stevie Glasgow, PGY4 Plastic Surgery Normal [facility] [employer] [facility] Air Breaker Operator Authentication Interface Message Text Complaint: Returned patient [...] patient complaints, Instructed patient to come to [facility] today to be seen. Pt declined [...] expecting a call from him. Normal [facility] [employer] [facility] Air Breaker Operator Authentication Interface Message Text Please call pt. His pain is unbearable. Normal [facility] [facility] Telephone Encounteron 2024 Air Breaker Operator Authentication Interface Message Text Spoke with pt [...] be permitted. Pt verbalized understanding. Normal [facility] [facility] Air Breaker Operator Authentication Interface Message Text Pt calling to request a different pain med. States was not able to sleep due to pain last night. Please call. Normal [facility] Anesthesia Postprocedure Akosua luationon 06-09-2024 Air Breaker Operator Authentication Interface Message Text Anesthesia Postoperative Assessment: [...] EVENTS: No notable events documented. Normal [facility] Anesthesia Preprocedure Eval uationon 06-09-2024 Air Breaker Operator Authentication Interface Message Text ASA: 2 No [...] were discussed with the patient and/or legal sales representative marine supplies. The risks, benefits and alternatives were reviewed. Questions regarding anesthesia were answered. Patient and/or legal sales representative marine supplies knows such anesthetics and procedures may be performed by Resident physicians, Certified Anesthesiologist Assistants, or Certified Nurse Anesthetists under the supervision of a physician. The patient /or the patient's legal sales representative marine supplies agree with the plan for anesthesia. MHPATFORM Normal The [facility] Anesthesia Transfer Of Careo n 06-09-2024 Air Breaker Operator Authentication Interface Message Text Patient taken to [...] laceration involving tendon, right, subsequent encounter [S61.411D, S66.731D] Current smoker [F17.200] Fracture of cervical vertebra (HCC) [S12.9XXA] Gouty arthritis of right ankle [M10.9] Open fracture of middle phalanx of finger [S62.759B] Past Surgical History: Review of patient's past surgical history indicates: TONSILLECTOMY 2012 CIRCUMCISION Allergies: Patient has no known allergies. Basic Operating Room Facts: Surgeon(s): Cely Puente MD Anesthesiologist: Sulaiman Nam MD; Js Gonzalez MD CAA: Augie Guevara CAA TELLERS SUPERVISOR: Mary Chan APRN-CRNA Anesthesia Student: Renetta Maher [...] of the report was received. Mary Chan APRN-TELLERS SUPERVISOR Normal [facility] Blood Attestationon 06-09-19 Air Breaker Operator Authentication Interface Message Text Blood Attestation: ATTESTATION OF INFORMED CONSENT FOR BLOOD: The transfusion of blood and/or blood components were discussed with the patient and/or legal sales representative marine supplies. The risks, benefits and alternatives were reviewed. Questions regarding blood transfusions were answered. The patient /or the patient's legal sales representative marine supplies agree with the plan for transfusion of blood and/or blood components. Normal [facility] [facility] Brief Operative Noteon 06-09 Air Breaker Operator Authentication Interface Message Text Brief Op Note Surgical Name: Tu Casiano CSN: [id number] Age: [age] year old Date of : 1995 Preoperative diagnosis(es): Pre-op Diagnosis * Hand laceration involving tendon, right, subsequent encounter [X19.118K, R82.588M] Postoperative diagnosis(es): Same Procedure(s): REPAIR, TENDON, EXTENSOR REDUCTION, OPEN, HAND Surgeon: Cely Puente MD 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 surgeon: Dr. Matta Anesthesia: General Specimen(s): * [...] Puente MD 06/09/2024 3:13 PM Normal [facility] [facility] OP Noteon 06-09-2024 Air Breaker Operator Authentication Interface Message Text Name: TU CASIANO I MR#: [id number] ENC#: [id number] Date of Procedure: 06/09/2024 ATTENDING SURGEON: Christoph Puente MD CABINET MAKER: Dr. Matta PREOPERATIVE DIAGNOSES: Right hand small [...] SAT/MedQ/Dict: 06/09/2024 15:21:21 TRANS: 06/09/2024 15:42:55 JOB: [id number] DictJob#: [id number] Normal [facility] Progress Noteson 06-09-2024 Air Breaker Operator Authentication Interface Message Text Dr. Golden at [...] with instructions and home prescriptions. Normal [facility] [employer] [facility] US GUIDANCE NEEDLE PLACEMENT on 06-09-2024 US GUIDANCE NEEDLE PLACEMENT Narrative AND Impression EXAMINATION: US GUIDANCE NEEDLE PLACEMENT CLINICAL HISTORY: peripheral nerve block IMPRESSION: : Technical services were performed by the department of Anesthesia. Please see the Procedure note for interpretation. Please refer to the patient's chart for the results of the procedure and ultrasound. Normal [facility] [facility] US Guidance for placement of needle in Unspecified body regionon 06-09-2024 : Technical services were performed by the department of Anesthesia. Please see the Procedure note for interpretation. Please refer to the patient's chart for the results of the procedure and ultrasound. [facility] Narrative & Impression EXAMINATION: US GUIDANCE NEEDLE PLACEMENT CLINICAL HISTORY: peripheral nerve block [facility] Radiology Study observation (narrative) [facility] US Guidance for placement of needle in Unspecified body regionOrdered By: Laila Golden on 06-09-2024 [facility] Work Phone: Assessment AND Plan Noteon 0 06-02-2024 Air Breaker Operator Authentication Interface Message Text - Dressings removed. - Discussed upcoming surgery, risks, benefits, prognosis, and outcomes. - Dressings placed today: bacitracin, adaptic, gauze, PHU. - OT today for splinting. Maintain splint until surgery. - Pain medication refilled. - Follow up one week post operatively. Normal [facility] [facility] Progress Noteson 06-02-2024 Air Breaker Operator Authentication Interface Message Text Opened in error. Normal [facility] [employer] [facility] Air Breaker Operator Authentication Interface Message Text Chief Complaint: Right [...] laceration involving tendon, right, subsequent encounter [S61.411D, S66.191D] Current smoker [F17.200] Fracture of cervical vertebra (HCC) [S12.9XXA] Gouty arthritis of right ankle [M10.9] Open fracture of middle phalanx of finger [S67.512B] Family History: No family history on file. [...] Nick PA-C 06/02/24 12:06 PM Normal [facility] [employer] [facility] PAT Call Historyon Air Breaker Operator Authentication Interface Message Text Telephone History Tu Johnson, [id number] 06/01/2024 28 year old 255 lbs 6' [...] surgery or procedure with anesthesia scheduled at [facility] ED Visit (05/30/2024) Partial Note- Hand injury/table [...] 5th digit. Patient was transferred here from [facility] for surgical consultation. A/P 28-year-old male with a past medical history listed above who presents to the emergency department as a transfer from [facility] for hand surgery consult. On initial presentation [...] and pain control prior to evaluation at [facility]. 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 Normal [facility] [employer] [facility] Telephone Encounteron 2024 Air Breaker Operator Authentication Interface Message Text Spoke with pt [...] POC. Preferred pharmacy for oxycodone refill is [facility] in [facility]. Current rx ends 2/5-pt aware we might not be able to fill until 2/6 based on frequency of rx. Normal [facility] [employer] [facility] Air Breaker Operator Authentication Interface Message Text Please call patient in regards to pain medication refill. Pain meds now not working so good. Please call patient TONY they run out of meds by tomorrow. [phone] Normal [facility] [facility] Addendum Noteon 05-30-2024 Air Breaker Operator Authentication Interface Message Text Addended by: CHARLENE NICK on: 05/30/2024 12:19 PM Modules accepted: Orders Normal [facility] [facility] BASIC METABOLIC PANELon Anion gap [Moles/Vol] 18 mmol/L Normal 10-20 [facility] [facility] Comment on above: Performed By: #### C H8 #### [facility] [address] [place] [address], Calcium [Mass/Vol] 9.4 mg/dL Normal 8.6-10.3 [facility] [employer] [facility] Comment on above: Performed By: #### C H8 #### [facility] [address] [place] [address], Chloride [Moles/Vol] 104 mmol/L Normal 98-107 [facility] [employer] [facility] Comment on above: Performed By: #### C H8 #### [facility] [address] [place] [address], CO2 [Moles/Vol] 26 mmol/L Normal 21-31 [facility] Comment on above: Performed By: #### C H8 #### S [facility] [address] [place] [address], Creatinine [Mass/Vol] 0.76 mg/dL Normal 0.70-1.30 [facility] Comment on above: Performed By: #### C H8 #### S [facility] [address] [place] [address], ESTIMATED GFR (CKD-EPI) 127 mL/min/1.73sqm Normal >=60 [...] Inclusion of Race in Diagnosing Kidney Disease. [place] Journal of Kidney Diseases 2021;79(2):268-88.e1. 2. N Engl J Med 1 Vol. 385 Issue 19 Pages 7149-8336 Performed By: #### C H8 #### [facility] [address] [place], [place], Glucose [Mass/Vol] 130 mg/dL High 74-109 [facility] Comment on above: Performed By: #### C H8 #### [facility] [address] [place], [place], Potassium [Moles/Vol] 4.1 mmol/L Normal 3.5-5.0 [facility] [employer] [facility] [facility] Comment on above: Performed By: #### C H8 #### S [facility] [address] [place], [place], Sodium [Moles/Vol] 144 mmol/L Normal 136-145 [facility] Comment on above: Performed By: #### C H8 #### S [facility] [address] [place] [address], Urea nitrogen [Mass/Vol] 6 mg/dL Low 7-25 [facility] Comment on above: Performed By: #### C H8 #### [facility] [address] [place], [address] Basic metabolic 2000 panelon 05-30-2024 Anion gap [...] Inclusion of Race in Diagnosing Kidney Disease. [place] Journal of Kidney Diseases 202;79(2):268-88.e1. 2. N Engl J Med 2020 Vol. 385 Issue 19 Pages 9432-6894 Glucose [Mass/Vol] 130 mg/dL High 74 - [...] (Bld) [#/Vol] 0.10 10*3/uL Normal 0.00-0.20 [facility] Comment on above: Performed By: #### C BCDSAT ####[facility]OLOG[facility] [id number] [place], [place], Basophils/100 WBC (Bld) 0.9 % Normal <=1.9 [facility] Comment on above: Performed By: #### C BCDSAT ####[facility]Y [id number] [place] [address], Eosinophils (Bld) [#/Vol] 0.06 10*3/uL Normal 0.00-0.70 [facility] Comment on above: Performed By: #### C BCDSAT ####[facility]Y [id number] [place], [place], Eosinophils/100 WBC (Bld) 0.5 % Normal 0.1-4.0 [facility] Comment on above: Performed By: #### C BCDSAT ####[facility] PATHOLOGY [id number] [place], [place], Erythrocyte distribution width (RBC) [Ratio] 13.1 % Normal 11.5-14.5 [facility] Comment on above: Performed By: #### C BCDSAT ####[facility] PATHOLOG[facility] [id number] [place], [place], Hematocrit (Bld) [Volume fraction] 50.4 % Normal 41.0-53.0 [facility] [facility] Comment on above: Performed By: #### C BCDSAT ####[facility] PATHOLOGY [id number] [place], [place], Hemoglobin (Bld) [Mass/Vol] 17.4 g/dL High 13.9-16.3 [facility] Comment on above: Performed By: #### C BCDSAT ####[facility] PATHOLOGY [id number] [place], [place], Lymphocytes (Bld) [#/Vol] 3.64 10*3/uL Normal 1.00-4.80 The [facility] Comment on above: Performed By: #### C BCDSAT ####[facility] PATHOLOGY [id number] [place], [place], Lymphocytes/100 WBC (Bld) 33.3 % Normal 24.0-44.0 The [facility] Comment on above: Performed By: #### C BCDSAT ####[facility] PATHOLOGY [id number] [place], [place], MCH (RBC) [Entitic mass] 33.1 pg Normal 26.0-34.0 The [facility] Comment on above: Performed By: #### C BCDSAT ####[facility] PATHOLOGY [id number] [place], MCHC (RBC) [Mass/Vol] 34.5 g/dL Normal 32.0-35.9 The [facility] Comment on above: Performed By: #### C BCDSAT ####[facility] PATHOLOGY [id number] [place], [place], MCV (RBC) [Entitic vol] 96 fL Normal 80-100 T [facility] Comment on above: Performed By: #### C BCDSAT ####[facility] PATHOLOGY [id number] [place], MONOCYTE DISTRIBUTION WIDTH 20 Normal <=20 The [facility] Comment on above: Performed By: #### C BCDSAT ####[facility] PATHOLOGY [id number] [place], Monocytes (Bld) [#/Vol] 0.75 10*3/uL Normal 0.20-1.00 The [facility] Comment on above: Performed By: #### C BCDSAT ####[facility] PATHOLOGY [id number] [place], Monocytes/100 WBC (Bld) 6.9 % Normal 2.0-11.0 T [facility] Comment on above: Performed By: #### C BCDSAT ####[facility] PATHOLOGY [id number] [place], Neutrophils (Bld) [#/Vol] 6.38 10*3/uL Normal 1.50-8.00 [facility] Comment on above: Performed By: #### C BCDSAT ####[facility] PATHOLOGY [id number] [place], Neutrophils/100 WBC (Bld) 58.4 % Normal 31.0-76.0 [facility] Comment on above: Performed By: #### C BCDSAT ####[facility] PATHOLOGY [id number] [place], Platelet mean volume (Bld) [Entitic vol] 9.4 fL Normal 7.5-11.2 [facility] Comment on above: Performed By: #### C BCDSAT ####[facility] PATHOLOGY [id number] [place], Platelets (Bld) [#/Vol] 200 10*3/uL Normal 150-400 [facility] Comment on above: Performed By: #### C LACHODSAT ####[facility] PATHOLOGY [id number] [place], RBC (Bld) [#/Vol] 5.25 10*6/uL Normal 4.50-5.90 The [facility] Comment on above: Performed By: #### C BCDSAT ####S PATHOLOGY [id number] [place], WBC (Bld) [#/Vol] 10.9 10*3/uL Normal 4.5-11.5 The [facility] Comment on above: Performed By: #### Cielo BCDSAT ####[facility] PATHOLOGY [id number] [place], [place], Consultson 05-30-2024 [employer] Authentication Interface Message Text PLASTIC SURGERY HAND [...] where decision was made to transfer to [facility]. The patient reports pain 10/10pm right [...] Xeroform (more content not included)... Normal [facility] [employer] [facility] ED Clinical Summaryon 2024 ED Clinical Summary ED Clinical Summary [place] [id number] ED Clinical Summary Person Information Name: TU CASIANO I [place] Age: 28 Years : 1995 Sex: Male Language: Croatian PCP: NAHOMI CORRALES CNP Marital Status: Single Phone: [phone] MRN: [id number] Visit Id: Visit Reason: Hand [...] 05/30/2024 00:10:36 05/30/2024 00:10:36 05/30/2024 00:10:36 ADDRESS: [address] [place] [address] [phone] PHYS DOC NOTES: MEDICAL INFORMATION: Prescriptions Given: [...] phalanx of finger of right hand Normal [facility] ED Patient Education Noteon 05-30-2024 ED Patient Education Note ED Patient Education Note Normal [facility] ED Patient Summaryon ED Patient Summary ED Patient Summary [address] [address] Patient Discharge Instructions Person Information Name: TU CASIANO I Age: 28 Years Arrival Date: 05/29/2024 21:25:29 Discharge Diagnosis: Open displaced fracture of middle phalanx of finger of right hand Primary Care Physician: NAHOMI CORRALES CNP Provider Information Primary Provider: Claudia Sierra DO [employer] Technician:None The exam and treatment you received in the Emergency Department were for an urgent problem and are not intended as complete care. It is important that you follow up with a doctor, nurse practitioner, or physician???s family medicine physician assistant for ongoing care. If your symptoms [...] opioids can be used to help relieve aekgcukl-sq-lmxycc pain and are often prescribed following a [...] be struggling with addiction, tell your health hearing healthcare practitioner and ask for guidance or call [facility]???S National Helpline at 7-236-059-HELP. v Source: Department of [facility] and [facility] (more content not included)... Normal [facility] ED Provider Karthikeyanon 05-30-19 25 Air Breaker Operator Authentication Interface Message Text EMERGENCY DEPARTMENT - VISIT NOTE HISTORY OF PRESENT ILLNESS ------ Chief Complaint Patient presents with Hand/finger symptoms Hand injury from a table saw, sent from [employer] Front Desk Agent: not needed - patient preferred language is Croatian. The history is provided by the Patient. [...] 5th digit. Patient was transferred here from [facility] for surgical consultation. On chart review, patient [...] the emergency department as a transfer from [facility] for hand surgery consult. On initial presentation [...] and pain control prior to evaluation at [facility]. Hand surgery was consulted, evaluated the [...] importanc (more content not included)... Normal [facility] No Panel Informationon 05-30 Interpretation and review of laboratory results Normal [facility] PARTIAL THROMBOPLASTIN TIMEo n 05-30-2024 aPTT Coag (Bld) [Time] 30 s [facility] aPTT Coag (Bld) [Time] 30 s Normal 25-37 Th e [facility] Comment on above: Performed By: #### A PTT, PT ####[facility] [id number] [place], [place], PROTHROMBIN TIME AND INRon 0 05-30-2024 INR Coag (PPP) [Relative time] 1.04 {INR} 0.90 - 1.10 [facility] PT Coag (PPP) [Time] 11.6 s [facility] INR Coag (PPP) [Relative time] 1.04 {INR} Normal 0.90-1.10 [facility] Comment on above: Performed By: #### A PTT, PT ####[facility] [id number] [place], PT Coag (PPP) [Time] 11.6 s Normal 9.7-12.9 [facility] Comment on above: Performed By: #### A PTT, PT ####[facility] PATHOLOGY [id number] [place], [place], TYPE AND SCREENon 05-30-2024 ABO and Rh group Nom (Bld) Blood group O Rh(D) positive [facility] ABO and Rh group Nom (Bld) No Previous Results [facility] Blood group antibody screen Ql Negative [facility] ABO and Rh group Nom (Bld) Blood group O Rh(D) positive Normal [facility] Comment on above: Performed By: #### T S #### [facility] LABORATORY [address] [place], [place], ABO and Rh group Nom (Bld) No Previous Results Normal [facility] Comment on above: Performed By: #### T S #### S PATHOLOGY LABORATORY [address] [place], [place], ABSC INT Negative Normal [facility] Comment on above: Performed By: #### T S #### [facility]OR[facility] [address] [place], [place], XR HAND RIGHT 2 VIEWSon XR [...] images and agree with the resident's interpretation. [facility] Radiology Study observation (narrative) [facility] XR Hand - right 2 ViewsOrder ed By: German Pagan on 05-30-2024 [facility] Work Phone: XR Hand 3+ Views Righton [...] MD Transcribed by: NANDA Technologist: JC Tee [facility] ED Note-Physicianon 05-29-19 ED Note-Physician ED Note-Physician Basic Information Time Seen: Claudia Sierra DO 05/29/2024 21:38 Chief Complaint pt was using saw and cut right third and fifth finger. pt needs tdap. bleeding controlled. History of Present Illness Patient is a 28-year-old male yehxa-eglm-hxjuqarn presenting to the ED for evaluation of [...] and Complexity of Problems Differential Diagnosis: [] [facility] Data External documents reviewed: [] My EKG [...] is accepted as a trauma transfer to [facility]. Shared decision making: [] Code status: [] [...] Discharge Condition Fair Discharge Disposition Transfer to [facility] Discharge Prescription List Prescriptions No active prescription [...] use i (more content not included)... Normal [facility] Comment on above: Result Comment: Elec tronically Signed By: Claudia Sierra DO\.br\Date and Time Signed: 05/29/24 22:33 EST Registrationon 09-26-2023 Registration [id number] [id number] Normal [facility] Vital Signs Date Time Vital Sign Value Performing Clinician Facility 10-25-2024 14:58-0400 Body height 182.88 cm Allison Leo APRN Work Phone: [facility] 10-25-2024 12:06-0400 Diastolic blood pressure 82 mm[Hg] Allison Lópezalexis STRIPPER CUTTER MACHINE Work Phone: [facility] 10-25-2024 12:06-0400 Heart rate 72 /min Allison Quintanillamarcela STRIPPER CUTTER MACHINE Work Phone: [facility] 10-25-2024 12:06-0400 Respiratory rate 16 /min Allison Lópezleathalincolnmarcela STRIPPER CUTTER MACHINE Work Phone: [facility] 10-25-2024 12:06-0400 SaO2% (BldA) [Mass fraction] 95 % Allison Quintanillamarcela STRIPPER CUTTER MACHINE Work Phone: [facility] 10-25-2024 12:06-0400 Systolic blood pressure 150 mm[Hg] Allison Quintanillamarcela STRIPPER CUTTER MACHINE Work Phone: [facility] 10-25-2024 08:00-0400 Body temperature 97.9 [degF] Allison Quintanillamarcela STRIPPER CUTTER MACHINE Work Phone: [facility] 10-25-2024 06:00-0400 Body weight 113 kg Allison Leo STRIPPER CUTTER MACHINE Work Phone: [facility] 10-05-2024 10:14-0400 Body height 182.88 cm [facility] 10-05-2024 10:14-0400 Body mass index (BMI) [Ratio] 34 kg/m2 [facility] 10-05-2024 10:14-0400 Body temperature 97.3 [degF] [facility] 10-05-2024 10:14-0400 Body weight 113.62 kg [facility] 10-05-2024 10:14-0400 Diastolic blood pressure 84 mm[Hg] [facility] 10-05-2024 10:14-0400 Heart rate 90 /min [facility] 10-05-2024 10:14-0400 SaO2% (BldA) [Mass fraction] 95 % [facility] 10-05-2024 10:14-0400 Systolic blood pressure 134 mm[Hg] [facility] 09-06-2024 09:44-0400 Body height 182.88 cm [facility] 09-06-2024 09:44-0400 Body mass index (BMI) [Ratio] 34.5 kg/m2 [facility] 09-06-2024 09:44-0400 Body temperature 96.3 [degF] [facility] 09-06-2024 09:44-0400 Body weight 115.66 kg [facility] 09-06-2024 09:44-0400 Diastolic blood pressure 92 mm[Hg] [facility] 09-06-2024 09:44-0400 Heart rate 87 /min [facility] 09-06-2024 09:44-0400 SaO2% (BldA) [Mass fraction] 94 % [facility] 09-06-2024 09:44-0400 Systolic blood pressure 140 mm[Hg] [facility] 07-23-2024 15:00-0400 Diastolic blood pressure 96 mm[Hg] Cely Puente MD [facility] 07-23-2024 15:00-0400 Heart rate 58 /min Cely Puente MD Work Phone: [employer] 07-23-2024 15:00-0400 Respiratory rate 11 /min Cely Puente MD [facility] 07-23-2024 15:00-0400 SaO2% (BldA) [Mass fraction] 95 % Cely Puente MD Work Phone: [employer] 07-23-2024 15:00-0400 Systolic blood pressure 158 mm[Hg] Cely Puente MD Work Phone: [employer] 07-23-2024 14:25-0400 Body temperature 97.11 [degF] Cely Puente MD Work Phone: [employer] 07-23-2024 12:31-0400 Body height 182.9 cm Cely Puente MD Work Phone: [employer] 07-23-2024 12:31-0400 Body mass index (BMI) [Ratio] 33.91 kg/m2 Cely Puente MD Work Phone: [employer] 07-23-2024 12:31-0400 Body weight 113.4 kg Cely Puente MD Work Phone: [employer] 06-09-2024 17:13-0500 Body temperature 98.1 [degF] Cely Puente MD Work Phone: [employer] 06-09-2024 17:13-0500 Diastolic blood pressure 100 mm[Hg] Cely Puente MD Work Phone: [employer] 06-09-2024 17:13-0500 Heart rate 69 /min Cely Puente MD Work Phone: [employer] 06-09-2024 17:13-0500 Respiratory rate 20 /min Cely Puente MD Work Phone: [employer] 06-09-2024 17:13-0500 SaO2% (BldA) [Mass fraction] 93 % Cely Puente MD Work Phone: [employer] 06-09-2024 17:13-0500 Systolic blood pressure 151 mm[Hg] Cely Puente MD Work Phone: [employer] 06-09-2024 10:57-0500 Body height 182.9 cm Cely Puente MD Work Phone: [employer] 06-09-2024 10:57-0500 Body mass index (BMI) [Ratio] 34.58 kg/m2 Cely Puente MD Work Phone: [employer] 06-09-2024 10:57-0500 Body weight 115.67 kg Cely Puente MD Work Phone: [employer] 06-01-2024 08:00-0500 Body height 182.9 cm Elma Parra RN [facility] 06-01-2024 08:00-0500 Body mass index (BMI) [Ratio] 34.58 kg/m2 Elma Parra RN [facility] 06-01-2024 08:00-0500 Body weight 115.67 kg Elma Alegriablanca RN [facility] 05-30-2024 01:34-0500 Body temperature 97.7 [degF] Leonardo Roberts MD Work Phone: [facility] 05-30-2024 01:34-0500 Diastolic blood pressure 114 mm[Hg] Leonardo Roberts MD Work Phone: [facility] 05-30-2024 01:34-0500 Heart rate 100 /min Leonardo Roberts MD Work Phone: [employer] 05-30-2024 01:34-0500 Respiratory rate 16 /min Leonardo Roberts MD Work [facility] 05-30-2024 01:34-0500 SaO2% (BldA) [Mass fraction] 93 % Leonardo Roberts MD Work Phone[facility] 05-30-2024 01:34-0500 Systolic blood pressure 158 mm[Hg] Leonardo Roberts MD Work Phone: [employer] 05-30-2024 00:03-0500 Diastolic blood pressure 122 mm[Hg] Kaylinn Dokken [facility] 05-30-2024 00:03-0500 Heart rate 105 /min Kaylinn Dokken [facility] 05-30-2024 00:03-0500 Mean blood pressure 140 mm[Hg] Kaylinn Dokken [facility] 05-30-2024 00:03-0500 Respiratory rate 22 /min Kaylinn Dokken [facility] 05-30-2024 00:03-0500 SaO2% (BldA) [Mass fraction] 95 % Kaylinn Dokken [facility] 05-30-2024 00:03-0500 Systolic blood pressure 177 mm[Hg] Kaylinn Dokken [facility] 05-29-2024 23:38-0500 Body temperature 98.96 [degF] Kaylinn Dokken [facility] 05-29-2024 23:38-0500 Diastolic blood pressure 109 mm[Hg] Kaylinn Dokken [facility] 05-29-2024 23:38-0500 Heart rate 98 /min Kaylinn Dokken [facility] 05-29-2024 23:38-0500 Mean blood pressure 124 mm[Hg] Kaylinn Dokken [facility] 05-29-2024 23:38-0500 Respiratory rate 22 /min Kaylinn Dokken [facility] 05-29-2024 23:38-0500 SaO2% (BldA) [Mass fraction] 95 % Kaylinn Dokken [facility] 05-29-2024 23:38-0500 Systolic blood pressure 155 mm[Hg] Kaylinn Dokken [facility] 05-29-2024 23:08-0500 Diastolic blood pressure 120 mm[Hg] Kaylinn Dokken [facility] 05-29-2024 23:08-0500 Heart rate 93 /min Kaylinn Dokken [facility] 05-29-2024 23:08-0500 Mean blood pressure 134 mm[Hg] Kaylinn Dokken [facility] 05-29-2024 23:08-0500 Respiratory rate 20 /min Kaylinn Dokken [facility] 05-29-2024 23:08-0500 SaO2% (BldA) [Mass fraction] 95 % Claudia Sierra [facility] 05-29-2024 23:08-0500 Systolic blood pressure 162 mm[Hg] Claudia Sierra [facility] 05-29-2024 21:58-0500 Body temperature 98.96 [degF] Claudia Sierra [facility] 05-29-2024 21:38-0500 Body temperature 98.96 [degF] Claudia Sierar [facility] 05-29-2024 21:38-0500 Heart rate 112 /min Claudia Sierra [facility] 04-06-2023 11:05-0500 Body height 177.8 cm Elizabeth Lowrymond Other [employer] Other 04-06-2023 11:05-0500 Body mass index (BMI) [Ratio] 32.48 kg/m2 Elizabeth Aimee Other [employer] Other 04-06-2023 11:05-0500 Body temperature 98.7 [degF] Elizabeth Lowrymond Other [employer] Other 04-06-2023 11:05-0500 Body weight 102.7 kg Elizabeth Lowrymond Other [employer] Other 04-06-2023 11:05-0500 Diastolic blood pressure 110 mm[Hg] Elizabeth Aimee Other [employer] Other 04-06-2023 11:05-0500 Respiratory rate 18 /min Elizabeth Yu Other [employer] Other 04-06-2023 11:05-0500 SaO2% (BldA) [Mass fraction] 97 % Elizabeth Yu Other [employer] [facility] [employer] Other 04-06-2023 11:05-0500 Systolic blood pressure 155 mm[Hg] Elizabeth Yu Other [facility] [employer] Other 06-23-2022 00:00-0500 Diastolic blood pressure 90 mm[Hg] Sd Joi [facility] 06-23-2022 00:00-0500 Heart rate 97 /min Sd Joi [facility] 06-23-2022 00:00-0500 SaO2% (BldA) [Mass fraction] 97 % Sd Joi [facility] 06-23-2022 00:00-0500 Systolic blood pressure 138 mm[Hg] Sd Joi [facility] 06-22-2022 23:00-0500 Diastolic blood pressure 80 mm[Hg] Sd Joi [facility] 06-22-2022 23:00-0500 Heart rate 98 /min Sd Joi [facility] 06-22-2022 23:00-0500 SaO2% (BldA) [Mass fraction] 98 % Sd Joi [facility] 06-22-2022 23:00-0500 Systolic blood pressure 145 mm[Hg] Sd Joi [facility] 06-22-2022 21:25-0500 Body temperature 97.88 [degF] Sd Joi [facility] 06-22-2022 21:25-0500 Diastolic blood pressure 93 mm[Hg] Sd Tamez [facility] 06-22-2022 21:25-0500 Heart rate 99 /min Sd Joi [facility] 06-22-2022 21:25-0500 Respiratory rate 16 /min Sd Joi [facility] 06-22-2022 21:25-0500 SaO2% (BldA) [Mass fraction] 96 % Sd Joi [facility] 06-22-2022 21:25-0500 Systolic blood pressure 155 mm[Hg] [facility]dPal[facility] Healthcaren[facility] Encounters Encounter Date Encounter Type Care Provider Facility Start: 10-23-2024 Non-patient / Non-visit Tico De La Cruz MD [facility] Work Phone: Start: 10-23-2024 End: 10-25-2024 Evaluation and management of inpatient Alcides Hui Facility:[facility] Start: 10-22-2024 Non-patient / Non-visit Adrienne Leo APRN [facility] Work Phone: Start: 10-05-2024 End: 10-05-2024 ambulatory [facility] Work Phone: Start: 10-05-2024 End: 10-05-2024 Patient encounter procedure [facility] Work Phone: Start: 09-06-2024 End: 09-06-2024 ambulatory [facility] Work Phone: Start: 09-06-2024 End: 09-06-2024 Patient encounter procedure [facility] Physician [facility] Work Phone: Start: 08-01-2024 End: 08-02-2024 Refill Charlene Nick PA-C Work Phone: [facility] Plastic Surgery Comment on above: Refill Start: 07-23-2024 End: 07-23-2024 ambulatory UNKNOWN PROVIDER Facility:[facility] Start: 07-23-2024 End: 07-23-2024 Subsequent hospital visit by physician Cely Puente MD Work Phone: [facility] Radiology Start: 07-23-2024 End: 07-26-2024 ambulatory CELY PUENTE Facility:[facility] Comment on above: Refill Start: 07-23-2024 End: 07-23-2024 Subsequent hospital visit by physician Cely Puente MD Work Phone: [facility] Ambulatory Surgery Comment on above: Acute pain due to in jury Start: 07-22-2024 ambulatory UNKNOWN PROVIDER Facili ty:[facility] Start: 07-22-2024 Encounter for other preprocedural examination UNKNOWN PROVIDER [facility] Start: 07-16-2024 End: 07-16-2024 Admission to same day surgery center Charlene Nick PA-C Work Phone: [facility] Surgery Start: 07-09-2024 End: 07-09-2024 Subsequent hospital visit by physician Gladys Op X-Ray 1 Work Phone: [facility] Radiology Comment on above: Traumatic amputation of finger, initial encounter; Hand laceration involving tendon, right, subsequent encounter Start: 07-09-2024 End: 07-09-2024 Patient encounter procedure Charlene Nick PA-C Work Phone: [facility]astic Surgery Comment on above: Traumatic amputation of finger, initial encounter (Primary Dx); Hand laceration involving tendon, right, subsequent encounter; Aftercare following surgery Start: 07-09-2024 End: 07-09-2024 ambulatory UNKNOWN PROVIDER Facility:[facility] Start: 06-26-2024 End: 06-26-2024 Letter encounter Federico Galeana OTR/L, [facility] Start: 06-24-2024 End: 06-24-2024 Refill Charlene Nick PA-C Work Phone: [facility]astic Surgery Comment on above: Refill Start: 06-23-2024 End: 06-23-2024 ambulatory UNKNOWN PROVIDER Facility:[facility] Start: 06-23-2024 End: 06-23-2024 Patient encounter procedure Charlene Sandoval CAT Work Phone: [facility] Surgery Comment on above: Traumatic amputation of finger, initial encounter (Primary Dx); Hand laceration involving tendon, right, subsequent encounter; Aftercare following surgery Start: 06-15-2024 ambulatory [facility] Start: 06-15-2024 End: 06-15-2024 ambulatory UNKNOWN PROVIDER Facility:[facility] Comment on above: OT Treatment; Splint /orthotic Issue Start: 06-15-2024 End: 06-15-2024 Patient encounter procedure Charlene Nick PA-C Work Phone: [facility] Surgery Comment on above: Traumatic amputation of finger, initial encounter (Primary Dx); Hand laceration involving tendon, right, subsequent encounter; Aftercare following surgery Start: 06-11-2024 End: 06-12-2024 Refill Stevie Glasgow MD Work Phone: [facility] Surgery Comment on above: Refill Start: 06-10-2024 End: 06-10-2024 Telephone encounter Cely Puente MD Work Phone: [facility] Surgery Start: 06-09-2024 End: 06-09-2024 ambulatory CELY PUENTE [facility] Start: 06-09-2024 End: 06-09-2024 Subsequent hospital visit by physician Cely Puente MD Work Phone: [facility] Radiology Start: 06-09-2024 End: 06-09-2024 ambulatory CELY PUENTE [facility] Start: 06-09-2024 End: 06-09-2024 Subsequent hospital visit by physician Cely Puente MD Work Phone: [facility] Rad[facility] Start: 06-09-2024 End: 06-09-2024 ambulatory CELY PUENTE Facility:[facility] Start: 06-09-2024 End: 06-09-2024 Subsequent hospital visit by physician Cely Puente MD Work Phone: [facility] Main OR Comment on above: Open displaced fract ure of middle phalanx of left index finger with routine healing, subsequent encounter (Primary Dx); Postoperative pain Start: 06-02-2024 End: 06-02-2024 Patient encounter procedure Federico Galeana OTR/L, CHT [facility] Occupational Therapy Comment on above: OT Evaluation (Clini c 1) Start: 06-02-2024 End: 06-02-2024 ambulatory UNKNOWN PROVIDER Facility:[facility] Start: 06-02-2024 End: 06-02-2024 Office outpatient new 45 minutes Charlene Nick PA-C Work Phone: [facility] Plastic Surgery Comment on above: Hand laceration invo lving tendon, right, subsequent encounter (Primary Dx); Traumatic amputation of finger, initial encounter; Acute pain due to injury Start: 06-02-2024 End: 06-02-2024 ambulatory UNKNOWN PROVIDER Facility:[facility] Start: 06-01-2024 End: 06-01-2024 Telephone encounter eCly Puente MD Work Phone: [facility] Plastic Surgery Start: 06-01-2024 End: 06-01-2024 Nursing evaluation of patient and report Elma Parra RN [facility] Pre-Admission Testing Comment on above: Pre-op evaluation (P rimary Dx) Start: 06-01-2024 End: 06-01-2024 Preprocedural examination done Elma Parra RN [facility] Start: 06-01-2024 ambulatory UNKNOWN PROVIDER Facili ty:[facility] Start: 05-30-2024 End: 05-30-2024 Admission to same day surgery center Stevie Paiz MD Work Phone: [facility] Plastic Surgery Start: 05-30-2024 Emergency department patient visit UNKNOWN PROVIDER Facility:[facility] Start: 05-30-2024 End: 05-30-2024 Emergency department patient visit UNKNOWN PROVIDER Facility:[facility] Comment on above: Hand/finger symptoms (Hand injury from a table saw, sent from OSH) Start: 05-29-2024 End: 05-30-2024 Emergency department patient visit Claudia Sierra [facility] Start: 09-19-2023 End: 09-19-2023 ambulatory [facility] Start: 2023 ambulatory [facility] Facilit y:[facility] Start: 04-06-2023 End: 04-06-2023 ambulatory Elizabeth Yu Other [employer] Other Start: 04-06-2023 Office outpatient ne w 10 minutes Elizabeth Yu [facility] Start: 06-24-2022 End: 06-24-2022 Patient encounter procedure NAHOMI CORRALES [facility] [place] Start: 06-22-2022 End: 06-23-2022 Emergency department patient visit Sd NellyJohana Tamez [facility] Start: 07-29-2016 End: 07-30-2016 Ambulatory PROVIDER UNKNOWN Facility:[facility] Procedures Date Procedure Procedure Detail Performing Clinician [...] season) [facility] Start: 10-27-2024 CT guided biopsy [facility] Start: 10-25-2024 Urine culture [facility] Start: 10-25-2024 End: 10-25-2024 [facility] Start: 10-24-2024 Consultation [facility] Start: 10-24-2024 [facility] Start: 10-24-2024 [facility] Start: 10-23-2024 [facility] Start: 10-23-2024 Referral to print manager [facility] Start: 10-23-2024 Hospital admission [facility] Start: 10-23-2024 [facility] Start: 2024 HPV Vaccine (optiona l start 27-45 years) HPV Vaccine (optional start 27-45 years) [facility] Start: 08-03-2024 End: 08-03-2024 Patient encounter procedure 08/03/2024 1:45 PM EDT Office Visit [facility] Plastic Surgery [address], [place] [id number] Charlene Nick PA-C [address] [place], [place] [address] [facility] Plastic Surgery Start: 12-28-2023 COVID-19 Vaccine ( season) COVID-19 Vaccine ( season) [facility] Start: 2016 Hepatitis A (HAV) Va ccine (optional start 19+ years) Hepatitis A (HAV) Vaccine (optional start 19+ years) [facility] Start: 2016 Pneumococcal vaccination Pneum ococcal Vaccine(s) (1 of 2 - PCV) [facility] Start: 09-13-2015 Hepatitis C screening Hepatitis C An tibody [facility] Start: 2012 HIV screening HIV Test [facility] Start: 2012 Vaccination for kell n papillomavirus HPV Vaccine (1 - Male 3-dose series) [facility] Start: 06-28-1998 Hepatitis B vaccination Hepati tis B (HBV) Vaccine (3 of 3 - 3-dose series) [facility] 24 hour urine magnes ium output measurement [facility] Aldosterone [Mass/vo lume] in Serum or Plasma [facility] Antibody measurement [facility] Cefuroxime free [Mass/volume] in Serum or Plasma [facility] Comprehensive metabo lic 2000 panel - Serum or Plasma [facility] Creatinine [Mass/vol ume] in Urine [facility] DOPamine [Mass/time] in 24 hour Urine [facility] DOPamine [Mass/volum e] in Urine [facility] EPINEPHrine [Mass/vo lume] in Urine [facility] Hepatitis A virus an tibody, IgM type [facility] Hepatitis B core ant ibody measurement, IgM type [facility] Hepatitis B virus yanes rface Ag [Presence] in Serum or Plasma by Immunoassay [facility] Hepatitis C virus Ig G Ab [Presence] in Serum or Plasma by Immunoassay [facility] HIV 1+2 Ab+HIV1 p24 Ag [Presence] in Serum or Plasma by Immunoassay [facility] Metanephrines [Mass/ volume] in 24 hour Urine [facility] Metanephrines/Creati nine [Mass Ratio] in Urine [facility] Myeloperoxidase Ab [Units/volume] in Serum by Immunoassay [facility] Neutrophil cytoplasm ic Ab.classic [Titer] in Serum by Immunofluorescence [facility] Norepinephrine [Mass /time] in 24 hour Urine [facility] Norepinephrine [Mass/volume] in Urine [facility] Normetanephrine [Mass/volume] in 24 hour Urine [facility] P-ANCA measurement [facility] Patient Education Know your Meds [facility] Work Phone: Patient referral [facility] Work Phone: Proteinase 3 Ab [Units/volume] in Serum by Immunoassay [facility] Renin [Enzymatic activity/volume] in Plasma [facility] Repair extensor tend on finger w/o graft each REPAIR, EXTENSOR TENDON, FINGER, PRIMARY/SECONDARY; W/O FREE GRAFT, EACH TENDON Procedures Routine Open displaced fracture of middle phalanx of left index finger with routine healing, subsequent encounter Ordered: 06/09/2024 [employer] Work Phone: Comment on above: Ordered: 06/09/2024 [facility] Immunizations Immunization Date Immunization Notes Care Provider Denis preston 05-29-2024 tetanus toxoid, reduced diphtheria toxoid, and acellular pertussis vaccine, adsorbed; Translations: [Boostrix (Tdap)] Claudia Sierra [facility] 08-08-1999 diphtheria, tetanus toxoids and acellular pertussis vaccine, unspecified formulation Charlene Nick PA-C Work Phone: [facility] 08-08-1999 haemophilus influenz ae type b vaccine, PRP-OMP conjugate Charlene Mccloudiak PA-C Work Phone: [facility] 08-08-1999 measles, mumps and rubella virus vaccine Charlene Mccloudiak PA-C Work Phone: [facility] 08-08-1999 poliovirus vaccine, inactivated Charlene Mccloudiak PA-C Work Phone: [facility] 06-28-1998 diphtheria, tetanus toxoids and acellular pertussis vaccine, unspecified formulation Charlene Sandoval PA-C Work Phone: [facility] 06-28-1998 haemophilus influenz ae type b vaccine, PRP-OMP conjugate Charlene Mccloudiak PA-C Work Phone: [facility] 05-03-1998 diphtheria, tetanus toxoids and acellular pertussis vaccine, unspecified formulation Charlene Mccloudiak PA-C Work Phone: [facility] 05-03-1998 haemophilus influenz ae type b vaccine, PRP-OMP conjugate Charlene Mccloudiak PA-C Work Phone: [facility] 05-03-1998 hepatitis B vaccine, pediatric or pediatric/adolescent dosage Charlene Mccloudiak PA-C Work Phone: [facility] 05-03-1998 poliovirus vaccine, inactivated Charlene Mccloudiak PA-C Work Phone: [facility] 02-22-1998 diphtheria, tetanus toxoids and acellular pertussis vaccine, unspecified formulation Charlene Mccloudiak PA-C Work Phone: [facility] 02-22-1998 haemophilus influenz ae type b vaccine, PRP-OMP conjugate Charlene Mccloudiak PA-C Work Phone: [facility] 02-22-1998 poliovirus vaccine, inactivated Charlene Nick PA-C Work Phone: [facility] 1997 hepatitis B vaccine, pediatric or pediatric/adolescent dosage Charlene Nick PA-C Work Phone: [facility] Payers Date Payer Category Payer Self-pay 2024 Medicaid [id number] 2021 Commercial Indemnity [employer] MUT [employer]AL - HMO/PPO/POS [id number] 2021 Unknown [id number] 2..[id number] 1997 Unknown [id number] 2.840.1.310624.3.579.2 1997 Unknown [id number] 2.840.1.382598.3.579.2 1997 Unknown [id number] 2.840.1.815382.3.579.2 1997 Unknown [id number] 2.840.1.393000.3.579.2 1997 Unknown [id number] 2.16840.1.758971.3.579.2 1997 Unknown [id number] 2.16840.1.346969.3.579.2 1997 Unknown [id number] 2.840.1.567008.3.579.2. 1997 Unknown [id number] 2.16.840.1.024470.3.579.2. 1997 Unknown [id number] 2.16.840.1.031485.3.579.2 1997 Unknown [id number] 2.16.840.1.791249.3.579.2 1997 Unknown [id number] 2.16.840.1.360840.3.579.2. 1997 Unknown [id number] 2.16.840.1.347198.3.579.2 1997 Unknown [id number] 2.840.1.204289.3.579.2 1997 Unknown [id number] 2.840.1.235529.3.579.2 1997 Unknown [id number] 2.840.1.478319.3.579.2. 1997 Unknown [id number] 2.840.1.376045.3.579.2 1997 Unknown [id number] 2.840.1.861415.3.579.2 1997 Unknown [id number] 2.840.1.549185.3.579.2 1997 Unknown [id number] 2.16840.1.252098.3.579.2. 1997 Unknown [id number] 2.16840.1.931279.3.579.2 1997 Unknown [id number] 2.16840.1.471665.3.579.2 1997 Unknown [id number] 2.840.1.637098.3.579.2 1997 Unknown [id number] 2.16.840.1.255825.3.579.2. 727 [facility] [id number] Medicaid [employer] Medicaid [id number] 500 [id number] Unknown MMO [id number] Unknown [place] BC/BS [id number] Unknown [id number] 2.16.840.1.667041.3.579.2. 531 Social History Date Type Detail Facility Start: 05-23-2021 Tobacco smoking status Heavy t obacco smoker (finding) [facility] Start: 06-01-2024 End: 07-22-2024 Sex Assigned At Male [facility] Start: 06-01-2024 End: 10-23-2024 Tobacco [...] Phone: Start: 09-06-2024 Tobacco smoking stat us UTIS Smoker (finding) [facility] Start: 1995 Sex Assigned At Male [facility] Start: 06-01-2024 End: 06-10-2024 Details of drug misuse behavior Misused drugs in past (finding) [facility] Start: 10-25-2024 SDOH Follow up SDOH Follow up [facility] Work Phone: Medical Equipment Procedure Code Equipment Code Equipment Origin al Text Equipment Identifier Dates K Wire Crhistopher 2 Pnt 4in .035 Bx6 [id number] - [id number] Start: 07-23-2024 K Wire Christopher 2 Pnt 4in .035 Bx6 [id number] - [id number] Start: 06-09-2024 K Wire Christopher 2 Pnt 4in .035 Bx6 397783 - [id number] Start: 07-23-2024 K Wire Christopher 2 Pnt 4in .035 Bx6 197045 - [id number] Start: 06-09-2024 K Wire Christopher 2 Pnt 4in .035 Bx6 227581 - [id number] Start: 07-23-2024 K Wire Christopher 2 Pnt 4in .035 Bx6 960318 - [id number] Start: 06-09-2024 K Wire Christopher 2 Pnt 4in .035 Bx6 346360 - [id number] Start: 07-23-2024 K Wire Christopher 2 Pnt 4in .035 Bx6 331607 - [id number] Start: 06-09-2024 K Wire Christopher 2 Pnt 4in .035 Bx6 342258 - [id number]_exp Start: 07-23-2024 K Wire Christopher 2 Pnt 4in .035 Bx6 629812 - [id number] Start: 06-09-2024 Functional Status Date Assessment Result Facility 05-29-2024 Functional Status N/A [facility] 06-22-2022 Functional Status N/A [facility] Clinical Notes 06-22-2022 to 09-06-2024 Note Date & Type Note Facility 09-06-2024 Evaluation note Diagnosis Onset Date Resolution BMI 34.0-34.9,adult acute August 262024 9:37am Gout acute September 06, 2024 9:37am Hypertension acute September 06 9:37am Obese acute September 06, 2024 9:37am BMI 34.0-34.9,adult acute October 05, 2024 10:13am Obese acute October 05 10:13am [facility] Work Phone: 1(510) 964-683105-12-2025 Evaluation note* Diagnosis Onset Date Resolution Status [...] 12:33am Tobacco dependence acute September 272024 12:33am [facility] Work Phone: 1(737) 711-515503-30-2025 Telephone encounter Note* Telephone Encounter - Danay Figueroa PharmD - 07/25/2024 12:54 PM EDT Patient sent a second request for oxycodone in [place] 07/25/2024. [facility] Work Phone: 1(223) 778-691003-30-2025 Miscellaneous Notes* Telephone Encounter - Danay Figueroa PharmD - 07/25/2024 12:54 PM EDT Patient sent a second request for oxycodone in [place] 07/25/2024. documented in this [id number] Surgery Postoperative evaluation and management note* Brief Operative Note - Emelina Diego DO - 07/23/2024 2:13 PM EDT Brief Operative Note BV OR 1 Tu Casiano 28 year old male Surgical Contact Serial Number: [id number] Preoperative Diagnosis: Pre-op Diagnosis * Traumatic amputation of finger, initial encounter [S68.119A] * Hand laceration involving tendon, right, subsequent encounter [S61.411D, S66.921D] Postoperative Diagnosis: * Traumatic amputation of finger, initial encounter [S68.119A] * Hand laceration involving tendon, right, subsequent encounter [S61.411D, S66.921D] Procedures: Right small finger hardware removal Surgeon(s): Surgeon(s): Cely Puente MD Staff: Scrub: Maryam Mao Air Pollution Inspector Nurse: Lidya Williamson RN Board Setter: Emelina Diego DO; Cristopher Kaur DMD, MD Anesthesia: Consult Anesthesiologist: Salinas Saldaña MD TELLERS SUPERVISOR: Jessica Aguilar APRN-LAUREN Anesthesia Student: Carolina Taemz Specimen(s): * No specimens in log * [...] by Emelina Diego DO 07/23/2024 2:21 PM [id number] Surgery Surgical operation note* OP Note - Emelina Diego DO - 07/23/2024 2:13 PM EDT OPERATIVE NOTE Plastic Surgery Name: Tu Casiano CSN: [id number] Surgical Age: [age] year old Date of [...] Care Complete Surgeon(s): Primary: Cely Puente MD 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 Surgeon: Scrub: Maryam Mao Air Pollution Inspector Nurse: Lidya Willaimson RN Board Setter: Emelina Diego DO; Cristopher Kaur DMD, MD [...] Puente MD at 07/26/2024 11:46 AM EDT [id number] Miscellaneous Notes* Brief Operative Note - Emelina Diego DO - 07/23/2024 2:13 PM EDT Brief Operative Note BV OR 1 Tu Casiano 28 year old male Surgical Contact Serial Number: [id number] Preoperative Diagnosis: Pre-op Diagnosis * Traumatic amputation of finger, initial encounter [S68.119A] * Hand laceration involving tendon, right, subsequent encounter [S61.411D, S66.921D] Postoperative Diagnosis: * Traumatic amputation of finger, initial encounter [S68.119A] * Hand laceration involving tendon, right, subsequent encounter [S61.411D, S66.921D] Procedures: Right small finger hardware removal Surgeon(s): Surgeon(s): Cely Puente MD Staff: Scrub: Maryam Mao Air Pollution Inspector Nurse: Lidya Williamson RN Board Setter: Emelina Diego DO; Cristopher Kaur DMD, MD Anesthesia: Consult Anesthesiologist: Salinas Saldaña MD TELLERS SUPERVISOR: Jessica Aguilar APRN-LAUREN Anesthesia Student: Carolina Tamez [...] NOTE Plastic Surgery Name: Tu Casiano CSN: [id number] Surgical Age: [age] year old Date of [...] Care Complete Surgeon(s): Primary: Cely Puente MD 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 Surgeon: Scrub: Maryam Mao Air Pollution Inspector Nurse: Lidya Williamson RN Board Setter: Emelina Diego DO; Cristopher Kaur DMD, MD [...] 07/26/2024 11:46 AM EDT documented in this [id number] Hospital Discharge instructions* Discharge Instructions* Tammy Maher, RN - 07/23/2024 1:45 PM EDT DEPARTMENT OF PLASTIC SURGERY DISCHARGE INSTRUCTIONS Outpatient Surgery C O N F I D E N T I A L I N F O R M A T I O N Hand Surgery Plastic Surgery Department Call [phone] during regular daytime business hours (8:00 am - 5:00 pm) and after 5:00 pm call [phone] or [phone] and ask for the Plastic Surgery (service) resident with any questions or concerns. If it is a life-threatening situation, proceed to the nearest emergency department. Follow up is typically in 7-10 days and should be scheduled by calling the office at [phone] if it has not already been arranged. [...] these, please contact your doctor's office at [phone]. Any fever higher than 100.4 F, especially if associated with an ill feeling, abdominal pain, chills, or nausea should be reported to your surgeon. Emergencies: If there is a non-urgent problem, please call the office at [phone]. Most issues are easily addressed and do [...] room. Please call us as well at [phone]. * Attachments The following attachments cannot be sent through Care Everywhere. * Acute Pain Discharge Instructions, Adult (Croatian) documented in this [id number] History and physical note* Cristopher Kaur DMD, MD - 07/23/2024 1:42 PM EDT Images from the original note were not included. Surgical History and Physical [facility] Ambulatory Surgery [address] [place] [address] Name: Tu Casiano : 1995 28 year old CSN: [id number] Attending: Cely Puente MD Date of Admission: [...] hospital encounter of 05/30/24 (from the past 43644 hours) Complete Blood Count W/Diff Collection Time: [...] Puente MD at 07/23/2024 1:46 PM EDT [id number] NoteSurgical History and Physical [facility] Ambulatory Surgery [address] [place] [address] Name: Tu Casiano : 1995 28 year old CSN: [id number] Attending: Cely Puente MD Date of Admission: [...] hospital encounter of 05/30/24 (from the past 49301 hours) Complete Blood Count W/Diff Collection Time: [...] medical history an (more content not included)...[facility] [id number] History and physical note* Cristopher Kaur DMD, MD - 07/23/2024 1:42 PM EDT Images from the original note were not included. Surgical History and Physical [facility] Ambulatory Surgery [address] [address] Name: Tu Casiano : 1995 28 year old CSN: [id number] Attending: Cely Puente MD Date of Admission: [...] hospital encounter of 05/30/24 (from the past 29241 hours) Complete Blood Count W/Diff Collection Time: [...] 07/23/2024 1:46 PM EDT documented in this [id number] History of Present illness Narrative* Charlene Nick [...] PA-C 07/09/24 2:10 PM documented in this [id number] History of Present illness Narrative* Charlene Nick [...] PA-C 06/23/24 12:25 PM documented in this [id number] History of Present illness Narrative* Charlene Nick [...] PA-C 06/15/24 12:15 PM documented in this [id number] History of Present illness Narrative* Prisca Caballero, [...] Payor: [employer] - HMO/PPO/POS / Plan: [employer] PPO/CLASSIC/PLUS / Product Type: RAÚLO Tu Casiano [...] updated medication list. 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 Identification [...] UE into bimanual activities to complete child nutrition manager tasks. Status: INITIATED Pt will integrate right [...] to OT closer to home per request, [facility] hand out provided Interventions: PROM, AROM, [...] OT Therapeutic Procedures THERAPEUTIC EXERCISES (15 MIN) [22856]: 10 SELF-CARE/HOME MANAGEMENT TRAINING (15 MIN) [02204]: 15 Total Timed Code Treatment Minutes: 25 minutes Un-Timed Code Treatments by Procedure: 1 WHO, 1 FO Total Un-Timed Code Treatment Minutes: 35 minutes SHARRI Harmon CHT documented in this [id number] Telephone encounter Note* Telephone Encounter - Rossy [...] will not be permitted. Pt verbalized understanding. [employer] Work Phone: [phone]) [phone] Miscellaneous Notes* Telephone Encounter - Rossy [place] [...] last night. Please call. documented in this [id number] Telephone encounter Note* Telephone Encounter - Tri Vasquez - 06/10/2024 8:55 AM EST Pt calling to request a different pain med. States was not able to sleep due to pain last night. Please call. [id number] Surgery Surgical operation note* OP Note - Cely Puente MD - 06/09/2024 8:45 PM EST Name: TU CASIANO I MR#: [id number] [facility]#: [id number] Date of Procedure: 06/09/2024 ATTENDING SURGEON: Christoph Puente MD CABINET MAKER: Dr. Matta PREOPERATIVE DIAGNOSES: Right hand small [...] Carranza/MedQ/Dict: 06/09/2024 15:21:21 TRANS: 06/09/2024 15:42:55 JOB: [id number] [employer]#: [id number] Miscellaneous Notes* OP Note - Cely Puente MD - 06/09/2024 8:45 PM EST Name: TU CASIANO I MR#: [id number] [facility]#: [id number] Date of Procedure: 06/09/2024 ATTENDING SURGEON: Christoph Puente MD CABINET MAKER: Dr. Matta PREOPERATIVE DIAGNOSES: Right hand small [...] SAT/MedQ/Dict: 06/09/2024 15:21:21 TRANS: 06/09/2024 15:42:55 JOB: [id number] [employer]#: [id number] * Brief Operative Note - Cely Puente MD - 06/09/2024 2:30 PM EST Brief Op Note Surgical Name: Tu Casiano CSN: [id number] Age: [age] year old Date of : 1995 Preoperative diagnosis(es): Pre-op Diagnosis * Hand laceration involving tendon, right, subsequent encounter [R03.117H, K31.750X] Postoperative diagnosis(es): Same Procedure(s): REPAIR, TENDON, EXTENSOR REDUCTION, OPEN, HAND Surgeon: Cely Puente MD 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 surgeon: Dr. Matta Anesthesia: General Specimen(s): * [...] were discussed with the patient and/or legal sales representative marine [employer]. The risks, benefits and alternatives were reviewed. Questions regarding blood transfusions were answered. The patient /or the patient s legal sales representative [employer] agree with the plan for transfusion of blood and/or blood components. documented in this [id number] History of Present illness Narrative* Carolyn Ghosh [...] instructions and home prescriptions. documented in this [id number] NotePeripheral Block Patient location during procedure: holding [...] Slow fractionated injection: yes No block complicationsThe [employer] [id number] NoteAcute Pain Note and Procedure Patient: Tu [...] Laila Golden DO Anesthesiology, PGY-3 06/09/2024, 4:23 [facility] [id number] Surgery Postoperative evaluation and management note* Brief Operative Note - Cely Puente MD - 06/09/2024 2:30 PM EST Brief Op Note Surgical Name: Tu Casiano CSN: [id number] Age: [age] year old Date of : 1995 Preoperative diagnosis(es): Pre-op Diagnosis * Hand laceration involving tendon, right, subsequent encounter [M65.239D, P97.059T] Postoperative diagnosis(es): Same Procedure(s): REPAIR, TENDON, EXTENSOR REDUCTION, OPEN, HAND Surgeon: Cely Puente MD 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 surgeon: Dr. Matta Anesthesia: General Specimen(s): * [...] procedure. Cely Puente MD 06/09/2024 3:13 PM [facility] [id number] Progress note* Blood Attestation - Js Gonzalez MD - 06/09/2024 12:58 PM EST Blood Attestation: ATTESTATION OF INFORMED CONSENT FOR BLOOD: The transfusion of blood and/or blood components were discussed with the patient and/or legal sales representative marine supplies. The risks, benefits and alternatives were reviewed. Questions regarding blood transfusions were answered. The patient /or the patient s legal sales representative marine supplies agree with the plan for transfusion of blood and/or blood components. [employer] Work Phone: 1(764) 524-293402-12-2025 History and physical note* Stevie Glasgow MD - 06/09/2024 12:54 PM EST Images from the original note were not included. [facility] [employer] [place] [address] Name: Tu Casiano : 1995 28 year old CSN: [id number] Attending: Cely Puente MD Date of Admission: [...] hospital encounter of 05/30/24 (from the past 41573 hours) CBC WITH DIFFERENTIAL Collection Time: 05/30/24 [...] MD. Stevie Glasgow MD 06/09/24 12:54 PM [facility] Phone: 1(798) 672-531002-12-2025 NoteSurgical History and Physical [facility] Main OR [address] [place] [address] Name: Tu Casiano : 1995 28 year old CSN: [id number] Attending: Cely Puente MD Date of Admission: [...] hospital encounter of 05/30/24 (from the past 04130 hours) CBC WITH DIFFERENTIAL Collection Time: 05/30/24 [...] Puente MD. Stevie Glasgow MD 06/09/24 12:54 [facility]02-12-2025 History and physical note* Stevie Glasgow MD - 06/09/2024 12:54 PM EST Images from the original note were not included. Surgical History and Physical [facility] Main OR [address] [address] Name: Tu Casiano : 1995 28 year old CSN: [id number] Attending: Cely Puente MD Date of Admission: [...] hospital encounter of 05/30/24 (from the past 00376 hours) CBC WITH DIFFERENTIAL Collection Time: 05/30/24 [...] laceration involving tendon, right, subsequent encounter [S61.411D, H09.304F]. Plan: I have personally reviewed the patient's medical history and performed the physical examination below immediately before the procedure. Medications, allergies, and pertinent laboratory and diagnostictests were also reviewed at this time. Procedure is still indicated. Yes Seen an evaluated by Stevie Glasgow MD. Discussed with attending eCly Puente MD. Stevie Glasgow MD 06/09/24 12:54 PM documented in this [id number] Hospital Discharge instructions* Discharge Instructions* Carolyn Ghosh [...] (Arrive by 9:50 AM) Charlene Nick PA-C [facility] Plastic Surgery [facility] 06/15/2024 10:30 AM (Arrive by 10:20 AM) [facility] Occupational Therapy Arrive at: [facility] During business hours, if you need to reach your provider, please call Plastic Surgery Office [phone]. After hours, if you have an urgent question or issue, you can also call this number and request to be connected to one of the residents on-call. PERIOPERATIVE DISCHARGE/HOME-GOING INSTRUCTIONS ANESTHESIA - GENERAL (ADULT) If a problem arises, you may contact your physician by calling [phone] and asking for the resident automation control technician for Plastic Surgery service. Special Care Needs: [...] very uncomfortable and can t urinate, call [phone] or come tot emergency room. A risk [...] less likely. For more informati on visit: [email or web address]-[email or web address]-gy-tauxdun/ Some medications or combinations of medications can [...] and treated if needed documented in this [id number] Evaluation + Plan note* Assessment & Plan [...] - Follow up one week post operatively. [id number] Miscellaneous Notes* Assessment & Plan Note - [...] one week post operatively. documented in this [id number] NoteOCCUPATIONAL THERAPY HAND CLINIC EVALUATION Visit #: [...] Payor: [employer] - HMO/PPO/POS / Plan: [employer] PPO/CLASSIC/PLUS / Product Type: MARIA ISABEL Johnson [...] updated medication list. 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 Status: INITIATED Pt will integrate right [...] to OT closer to home per request, [facility] hand out provided Interventions: P (more content not included)...[employer] [id number] History of Present illness Narrative* Federico Galeana, [...] Payor: MEDICAL MUTUAL - HMO/PPO/POS / Plan: [employer] PPO/CLASSIC/PLUS / Product Type: RAÚLO Tu Johnson [...] updated medication list. 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 Status: INITIATED Pt will integrate right [...] to OT closer to home per request, [facility] hand out provided Interventions: PROM, AROM, [...] minutes SHARRI Barroso CHT documented in this [id number] History of Present illness Narrative* Charlene Nick [...] laceration involving tendon, right, subsequent encounter [S61.411D, S61.880I] Current smoker [F17.200] Fracture of cervical vertebra (HCC) [S12.9XXA] Gouty arthritis of right ankle [M10.9] Open fracture of middle phalanx of finger [S68.804B] Family History: No family history on file. [...] PA-C 06/02/24 12:06 PM documented in this [id number] Telephone encounter Note* Telephone Encounter - Rossy [...] POC. Preferred pharmacy for oxycodone refill is [facility] in [facility]. Current rx ends 2/5-pt aware we might not be able to fill until 2/6 based on frequency of rx. [facility] Work Phone: [phone] Miscellaneous Notes* Telephone Encounter - Rossy Norwood [...] POC. Preferred pharmacy for oxycodone refill is [facility] in [facility]. Current rx ends 2/5-pt aware we might not be able to fill until 2/6 based on frequency of rx. * Telephone Encounter - Sharron Santacruz - 06/01/2024 8:56 AM EST Please call patient in regards to pain medication refill. Pain meds now not working so good. Please call patient TONY they run out of meds by tomorrow. [phone] documented in this [id number] Instructions* Discharge Instructions* Elma Parra RN - 06/01/2024 8:58 AM EST June 01, 2024 Mr. Johnson, You are scheduled for your procedure/surgery on 06/09/[address] Puente at the [facility] location. You will be contacted on 06/08/2024 between 1-3 PM and provided with your arrival time. [address] [place] [address] [facility] PARKING INSTRUCTIONS Please plan extra time for parking and shuttle service. We recommend arriving at least 15 minutes prior to the time your care team advises you need to be here. Parking is available in the [employer] [facility] accessible from [employer]. 18/11 shuttle service from the garage to the [facility] is available. Go to the ground floor of the parking garage to reach the shuttle pick-up station located just outside the elevator and stairs. Shuttle service will drop you off at the [facility] entrance. Supervisor Speech service is available at the [facility] entrance if you prefer creative services specialist over parking. [facility] Supervisor Speech Services Hours: Friday-Friday 5:30 am to 8:00 pm Enter the [facility] entrance and go to the Admitting/Registration desk [...] BOLD TEXT ? Expect a call from [employer] one business day prior to surgery for [...] stay with you after surgery. Please call [facility] if you need transportation assistance or have concerns about going home [phone]. ? PLEASE BE ON TIME. A late arrival may result in the cancellation/ delay of your surgery. Thank you for choosing [employer]; it is our pleasure to care for you If you become ill prior to procedure or surgery, or a family emergency should arise, please call the provider or surgeon's office directly. documented in this [id number] Telephone encounter Note* Telephone Encounter - Sharron Santacruz - 06/01/2024 8:56 AM EST Please call patient in regards to pain medication refill. Pain meds now not working so good. Please call patient TONY they run out of meds by tomorrow. [phone] [id number] Evaluation note* PAT Call History - Elma Parra RN - 06/01/2024 8:36 AM EST Images from the original note were not included. Telephone History Tu Johnson, [id number] 06/01/2022 28 year old 255 lbs 6' [...] surgery or procedure with anesthesia scheduled at [facility] ED Visit (05/30/2024) Partial Note- Hand injury/table [...] 5th digit. Patient was transferred here from [facility] for surgical consultation. A/P 28-year-old male with a past medical history listed above who presents to the emergency department as a transfer from [facility] for hand surgery consult. On initial presentation [...] and pain control prior to evaluation at [facility]. 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 Expect a call from [employer] one business day prior to surgery for [...] stay with you after surgery. Please call [facility] Social Work if you need transportation assistance or have concerns about going home [phone]. ? PLEASE BE ON TIME. A late arrival may result in the cancellation/ delay of your surgery. Thank you for choosing [facility]; it is our pleasure to care for you Elma Parra RN, RN Time Spent Performing this Telephone History: 30 min [id number] Miscellaneous Notes* PAT Call History - Elma Parra RN - 06/01/2024 8:36 AM EST Images from the original note were not included. Telephone History Tu Johnson, [id number] 06/01/2022 28 year old 255 lbs 6' [...] surgery or procedure with anesthesia scheduled at [facility] ED Visit (05/30/2024) Partial Note- Hand injury/table [...] 5th digit. Patient was transferred here from [facility] for surgical consultation. A/P 28-year-old male with a past medical history listed above who presents to the emergency department as a transfer from [facility] for hand surgery consult. On initial presentation [...] and pain control prior to evaluation at [facility]. 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 Expect a call from [employer] one day prior to surgery for surgery [...] stay with you after surgery. Please call [facility] [employer] Work if you need transportation assistance or have concerns about going home [phone]. ? PLEASE BE ON TIME. A late arrival may result in the cancellation/ delay of your surgery. Thank you for choosing [facility]; it is our pleasure to care for you Elma Parra RN, RN Time Spent Performing this Telephone History: 30 min documented in this [id number] Note* Addendum Note - Charlene Nick PA-C - 05/30/2024 12:19 PM ESTAddended by: CHARLENE NICK on: 05/30/2024 12:19 PM Modules accepted: Orders [id number] Miscellaneous Notes* Addendum Note - Charlene Nick PA- C - 05/30/2024 12:19 PM ESTAddended by: CHARLENE NICK on: 05/30/2024 12:19 PM Modules accepted: Orders documented in this [id number] Hospital Discharge instructions* Discharge Instructions* Kenji Flores [...] Care Everywhere. * Wound Care Discharge Instructions (Croatian) documented in this [id number] Consult note* Stevie Paiz MD - 05/30/2024 [...] where decision was made to transfer to [facility]. Thepatient reports pain 10/10pm right small [...] Puente's office for surgery (schedulers messaged) - [facility] for discharge - Dispo: per ED [...] Paiz MD Plastic Surgery - PGY5 Pager: [phone] Cosigned by Cely Puente MD at 05/31/2024 8:30 AM EST [employer] Work Phone: 1(169) 214-374102-02-2025 Consult note* Stevie Paiz MD - 05/30/2024 [...] where decision was made to transfer to [facility]. Thepatient reports pain 10/10pm right small [...] Paiz MD Plastic Surgery - PGY5 Pager: [phone] Cosigned by Cely Puente MD at 05/31/2024 8:30 AM EST documented in this [id number] Physician Emergency department Note* Leonardo Roberts MD - 05/30/2024 1:39 AM EST Images from the original note were not included. EMERGENCY DEPARTMENT - VISIT NOTE HISTORY OF PRESENT ILLNESS Chief Complaint Patient presents with Hand/finger symptoms Hand injury from a table saw, sent from [facility] Lead Front Desk Agent: not needed - patient preferred language is Croatian. The history is provided by the Patient. [...] 5th digit. Patient was transferred here from [facility] for surgical consultation. On chart review, patient [...] the emergency department as a transfer from [facility] for hand surgery consult. On initial presentation [...] and pain control prior to evaluation at [facility]. Hand surgery was consulted, evaluated the [...] Attending Physician Department of Emergency Medicine Pager [phone] [employer] Work Phone: 1(622) 519-133002-02-2025 Emergency department Note* Leonardo Roberts MD - 05/30/2024 1:39 AM EST Images from the original note were not included. EMERGENCY DEPARTMENT - VISIT NOTE HISTORY OF PRESENT ILLNESS Chief Complaint Patient presents with Hand/finger symptoms Hand injury from a table saw, sent from [facility] Lead Front Desk Agent: not needed - patient preferred language is Croatian. The history is provided by the Patient. [...] 5th digit. Patient was transferred here from [facility] for surgical consultation. On chart review, patient [...] the emergency department as a transfer from [facility] for hand surgery consult. On initial presentation [...] and pain control prior to evaluation at [facility]. Hand surgery was consulted, evaluated the [...] Attending Physician Department of Emergency Medicine Pager [phone] documented in this [id number] Evaluation + Plan note Extracted from: Title:ED [...] Transfer Patient XR Hand 3+ Views Right [facility] 12-10-2023 Evaluation note* Encounter Date Diagnosis [...] no improvement in 2 to 3 days. [employer] Other 02-26-2023 Hospital Discharge instructions Patient Education 06/22/2022 23:52:48 Laceration Care, Adult, Vxfm-be-Frsm Laceration Care, Adult A laceration is a [...] prevent scarring. Supplies needed: Soap. Water. Hand signs sales representative. Bandage (dressing). Antibiotic ointment. Clean towel. How to take care of your cut Wash your hands with soap and water before touching your wound or changing your bandage. If soap and water are not available, use hand signs sales representative. If your doctor used stitches or nidhi: [...] falls off the skin. General instructions Take utwv-irb-zfegogu and prescription medicines only as told by [...] 09/30/2008 Document Revised: 06/12/2018 Document Reviewed: 05/04/2018 [employer] Patient Education 2020 [employer]. Follow Up Care 06/22/2022 21:21:07 With:Skip ARANDA, PRICILA Asencio Address: [address] [place] [address]- When:2 weeks Comments:for suture removal [facility]02-25-2023 Evaluation + Plan noteExtracted from: Title:ED Note Author:Tori CAT, Charlene Medellin ate:06/22/22 1. Laceration of left index finger w/o foreign body w/o damage to nail (S61.211A: Laceration without foreign body of left index finger without damage to nail, initial encounter) Ordered: cephalexin, 500 mg = 1 cap(s), Oral, TID, X 5 day(s), # 15 cap(s), Refills(s) 0, Pharmacy: [facility]/pharmacy #[id number], 182.9, cm, 06/22/22 21:29:00 EST, Height/Length Dosing, 103.4, kg, 06/22/22 21:29:00 EST, Weight Dosing 2. Injury due to knife (W26.0XXA: Contact with knife, initial encounter) Ordered: cephalexin, 500 mg = 1 cap(s), Oral, TID, X 5 day(s), # 15 cap(s), Refills(s) 0, Pharmacy: [facility]/pharmacy #[id number], 182.9, cm, 06/22/22 21:29:00 EST, Height/Length Dosing, 103.4, kg, 06/22/22 21:29:00 EST, Weight Dosing Orders: bacitracin topical, 1 liza, Ointment, Topical, Once, Stop date 06/22/22 23:51:00 EST, STAT, Start date 06/22/22 23:51:00 EST Future Appointments Appointment Date:06/24/2022 03:40:00 PM Scheduled Provider:NAHOMI CORRALES CNP Location:[facility] App[facility]ment [facility]: [facility] Diagnosis Hand laceration involving tendon, [...] 9:37am Obese acute September 06, 2024 9:37am [facility] Work Phone: Evaluation note* Diagnosis Traumatic amputation [...] Hand laceration involving tendon, right, subsequent encounter [S61.753D, S66.785P]- [facility] [...] Hand laceration involving tendon, right, subsequent encounter [S61.088D, S66.981D] Hand laceration involving tendon, right, subsequent encounter [...] Description Date Medical History high blood pressure [employer] Other Hospital course Narrative No data available for this section [facility] No data available for this section [facility] Family Medicine [place] Progress note No data available for this section [facility] Narrative* Auth/Cert (Routine) Specialty Diagnoses / Procedures Referred By Cammie price Referred To Contact General Surgery Diagnoses Hand laceration involving tendon, right, subsequent encounter Hand laceration involving tendon, right, subsequent encounter [N06.855Q, O30.187E] Procedures REPAIR, EXTENSOR TENDON, FINGER, PRIMARY/SECONDARY; W/O FREE GRAFT, EACH TENDON REPAIR, EXTENSOR TENDON, FINGER, PRIMARY/SECONDARY; W/FREE GRAFT, EACH TENDON OPEN TRT, PHALANGEAL SHAFT FRCT, PROXIMAL/MIDDLE PHALANX, FINGER/THUMB, W/WO FIXATION, EA REPAIR, TENDON, EXTENSOR REDUCTION, OPEN, HAND Cely Puente MD [facility] [place] [address] Phone: tel: fax: THE [employer] [address] [place], [place] [address] [place] [address] Phone: tel: Referral ID Status Reason Start Date Expiration Date Visits Re quested Visits Authorized [id number] 3 3 [facility] Narr[facility]* Diagnostic X-Ray (Urgent) - Closed Specialty Diagnoses / Procedures Referred By Cammie price Referred To Contact Radiology Diagnoses Traumatic amputation of finger, initial encounter Hand laceration involving tendon, right, subsequent encounter Procedures XR FINGERS RIGHT 3 VIEWS Charlene Nick PA-C [address] [place], [place] [address] [place] [address] Phone: tel: fax: S DIAGNOSTIC RADIOLOGY [address] [place] [address] [place] [address] Phone: tel: Referral ID Status Reason Start Date Expiration Date Visits Re quested Visits Authorized [id number] Closed 07/07/2024 06/23/2025 1 1 [facility] for visit Narrative* Auth/Cert (Routine) Specialty Diagnoses / Procedures Referred By Cammie t Referred To Contact Ambulatory Surgery Diagnoses Traumatic amputation of finger, initial encounter Hand laceration involving tendon, right, subsequent encounter Traumatic amputation of finger, initial encounter [S68.119A] Hand laceration involving tendon, right, subsequent encounter [S61.411D, S66.921D] Procedures REMOVAL, IMPLANT; DEEP REMOVAL, HARDWARE, HAND Cely Puente MD [address] [place] [address] Phone: tel: fax: [facility] [address] [place] [id number] Phone: tel: Referral ID Status Reason Start Date Expiration Date Visits Re quested Visits Authorized [id number] 3 3 [facility] Summary Purpose Family History Relationship Condition Age [...] section and content) DATE CREATED AUTHOR 10/21/2017 [place] DATE CREATED AUTHOR AUTHOR'S ORGANIZ ATION 07/30/2024 [employer] DATE CREATED AUTHOR AUTHOR'S ORGANIZ ATION 09/08/2024 [facility] DATE CREATED AUTHOR AUTHOR'S ORGANIZ ATION 12/04/2024 [facility] ysician [facility] Patient Care team informatio n (unrecognized section and content) Coil Finisher Relationship Specialty Start Date End Date Federico Galeana OTR/L, CHT [address] [place] [address] Occupational Therapist Occupational Therapy 06/26/24 Prisca Caballero OTR/Jai, CHT [address] [place] [address] Occupational Therapist Occupational Therapy 06/26/24 Team Status: Active Member Role Status Dates Allison Leo APRN REED MAN-C Primary Care Provider Active Team Status: Inactive Member Role Status Dates Allison Leo APRN REED MAN-C Primary Care Provider, Attending Provider Active Start: September 06, 2024 End: September 06, 2024 Team Status: Inactive Member Role Status Dates Allison Leo APRN REED MAN-C Primary Care Provider, Attending Provider Active Start: October 05, 2024 End: October 05, 2024 Team Status: Inactive Member Role Status Dates Allison Leo APRN REED MAN-C Primary Care Provider Active Start: September 06, 2024 End: September 06, 2024 Allison Leo APRN [employer]-C Attending Provider Act luis Start: September 06, 2024 End: September 06, 2024 Team Status: Inactive Member Role Status Dates Allison Leo APRN REED MAN-C Primary Care Provider Active Start: October 05, 2024 End: October 05, 2024 Allison Leo APRN REED MAN-C Attending Provider Act luis Start: October 05, 2024 End: October 05, 2024 Team Status: Active Member Role Status Dates Allison Leo APRN REED MAN-C Primary Care Provider Active Start: October 22, 2024 Allison Leo APRN REED MAN-C Attending Provider Act luis Start: October 22, [...] Other Provider Active Start: Mary Jane 2024 Coil Finisher Relationship Specialty Start Date End Date Federico Galeana, JOHNR/L, CHT [address] [place] [address] Occupational Therapist Occupational Therapy 06/26/24 Federico, Prisca, OTR/L, CHT [address] [place] [address] [place] [address] Occupational Therapist Occupational Therapy 06/26/24 Coil Finisher Relationship Specialty Start Date End Date BilFederico rose, OTR/L, CHT [address] [place] [place] [address] Occupational Therapist Occupational Therapy 06/26/24 Federico, Prisca, OTR/L, CHT [address] [place] [address] DR. [place] [address] Occupational Therapist Occupational Therapy 06/26/24 Coil Finisher Relationship Specialty Start Date End Date BilFederico rose, OTR/L, CHT [address] [facility] [address] Occupational Therapist Occupational Therapy 06/26/24 Yamilka Caballeroyce, OTR/L, CHT [address] [place] [address] [place] [address] Occupational Therapist Occupational Therapy 06/26/24 Coil Finisher Relationship Specialty Start Date End Date Federico Galeana, OTR/L, CHT [address] [facility] [place] [address] Occupational Therapist Occupational Therapy 06/26/24 Yamilka Caballeroyce, OTR/L, CHT [address] [place] [address] [place] [address] Occupational Therapist Occupational Therapy 06/26/24 Coil Finisher Relationship Specialty Start Date End Date BilFederico rose, OTR/L, CHT [address] [facility] [place] [address] Occupational Therapist Occupational Therapy 06/26/24 Federico Prisca, OTR/L, CHT [address] [place] [address] [place] [address] Occupational Therapist Occupational Therapy 06/26/24 Coil Finisher Relationship Specialty Start Date End Date BilFederico rose, OTR/L, CHT [address] [place] [address] [place] [address] Occupational Therapist Occupational Therapy 06/26/24 Prisca Caballero, OTR/L, CHT [address] [place] [address] [address] [id number] Occupational Therapist Occupational Therapy 06/26/24 REASON FOR [...] Hand laceration involving tendon, right, subsequent encounter [U49.179D, B67.963W] Procedures REPAIR, EXTENSOR TENDON, FINGER, PRIMARY/SECONDARY; W/O FREE GRAFT, EACH TENDON REPAIR, EXTENSOR TENDON, FINGER, PRIMARY/SECONDARY; W/FREE GRAFT, EACH TENDON OPEN TRT, PHALANGEAL SHAFT FRCT, PROXIMAL/MIDDLE PHALANX, FINGER/THUMB, W/WO FIXATION, EA REPAIR, TENDON, EXTENSOR REDUCTION, OPEN, HAND Cely Puente MD [address] [place] [address] Phone: tel: fax: [facility] [address] [place] [phone] Phone: tel: Referral ID Status Reason Start Date Expiration Date Visits Re quested Visits Authorized [id number] 3 3 Reason Comments Monitoring/follow-up Cut with [...] LOWER EXTREMITY(S) AND/OR TRUNK, EA 15 MINUTES [place] ORTHOTICS/PROSTH MGMT &/TRAINJ SBSQ ENCTR 15 MIN Charlene Nick PA-C [address] [place] [address] Phone: tel: fax: [facility] Occupational Therapy [address] [place] [address] Phone: tel: Referral ID Status Reason Start Date Expiration Date Visits Requested Visits Authorized [id number] Authorized Consultatio [facility] 06/15/2024 12/13/2024 10 10 Reason Comments Limited [...] Push, ONCE, 1 dose, On 05/30/24 at 0525 0505 (Given - Provid er: Sanaz Gonzalez RN) lidocaine-EPINEPHrine (XYLOCAINE) 1 %-1:613107 injection SOLN (COMPLETED) 20 mL, Injection, ONCE, [...] Pereira)1529 (IV Stop - Provider: Mary Chan APRN-[facility]) PRN Medication Order 06/07/2024 06/08/2024 [...] BE BASED ON THE PRIMARY CLINICAL RECORDS. [employer] [facility]. provides no warranty or guarantee of the accuracy or completeness of information in this document.
[2025-02-04 15:09] LABS: Glucose, Body Fluid <2 mg/dL (.)
== END 2025-02-03 13:49 | disposition home or self-care (01) ==
LOC: LAB 13:48
PROVIDERS: PCP Internal Medicine; Visit Provider Physician Assistant
DX: M25.561 Pain in right knee (principal); M25.461 Effusion, right knee
CPT/HCPCS: 36415; 82945; 87070; 89051; 89060

== ENCOUNTER 2025-02-24 13:08 | Outpatient (OUT) | payer OTHER, SELFPAY ==
--- OUTSIDE RECORDS SUMMARY | 2025-02-17 06:49 | XMS_ITS | Continuity of Care Document ---
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 Name Role Phone Allison Carr APRN Primary Care Provider Allison Carr APRN Attending Provider Luis Fonseca DO Attending Provider Care Teams Patient Care Team Team Status: Active Member Role/Relationship Status Dates Allison Carr APRN [facility] Primary Care Provider Active Visit Care Team Team Status: Inactive Member Role/Relationship Status Dates Allison Carr APRN [facility] Primary Care Provider Active Start: February 02, 2025 End: February 02, 2025Allison Carr APRN [facility]-CAttending ProviderActive Start: February 02, 2025 End: February 02, 2025 Visit Care Team Team Status: Inactive Member Role/Relationship Status Dates Allison Carr APRN [facility] Primary Care Provider Active Start: February 03, 2025 End: February 03, 2025Belén Flores ProviderActiveStart: February 03, 2025 End: February 03, 2025 Visit Care Team Team Status: Inactive Member Role/Relationship Status Dates Allison Carr APRN [facility] Primary Care Provider Active Start: January End: February 15, 2025Belén Folres ProviderActiveStart: February 15, 2025 End: February 15, 2025 Patient Care Team Team Status: Inactive Member Role/Relationship Status Dates Allison Carr APRN [facility] Primary Care Provider Active Start: January End: February 17, 2025Luis Fonseca , DOAttending ProviderActiveStart: February 17, 2025 End: February 17, 2025 Chief Complaint and Reason for Visit Chief Complaint Admit Date Right Leg Inflammation February 02, 2025 1:00pm CONSULT ALLISON CARR February 03, 2025 12:08pm m23.91 m25.461 February 15, 2025 8 :59am MRI RESULTS February 17, 2025 9 :49am Reason for Visit Admit Date Right knee pain February 02, 2025 1: 00pm Right leg pain February 02, 2025 1: 00pm Swelling of right knee February 02, 2025 1:00pm Swelling of right lower extremity Octobe r 2024 1:00pm Right knee pain February 03, 2025 12 :08pm Swelling of right knee February 03, 2025 12:08pm Right knee pain February 17, 2025 9 :49am Swelling of right knee February 17 9:49am Allergies, Adverse Reactions, Alerts Allergen Type Severity Reaction Last Updated Verified Status No Known Allergies Allergy Unknown February 17, 2025 10:12amYesActive Social History Smoking Status Status Start Date End Date Date of Observa tion Smokes tobacco daily (finding) October 23, 2024 11:37am Observation Status Observation Response Date of Response Legal Sex Male (finding) Sex Assigned At BirthMaleMay 1995 Family History Relationship Condition Age at Onset Recorded Date/T steffi father Hypertension Unknown Problems Active Problems Problem Diagnosis/Recorded Date Onset Date Status C omments Swelling of right knee February 02, 2025 1:15pm Unknown Active Swelling of right lower extremityOct2024 1:15pmUnknownActiveInternal derangement of right kneeOctober 2024 9:30amUnknownActiveGoutMay 2024 10:40amUnknownActiveRight leg painOctober 2024 1:16pmUnknownActiveBMI 34.0-34.9,adultMay 2024 10:03amUnknownActiveRight knee painOctober 2024 1:15pmUnknownActiveObeseMay 2024 10:03amUnknownActive Inactive/Resolved Problems Problem Diagnosis/Recorded Date Onset Date Status C omments JO (acute kidney injury) October 23, 2024 1:41am Unknown Resolved Exposure to 2019-nCoVMay 2020 3:58pmUnknownResolvedProblem List clean-up per request of Phys. EHR CmteTobacco dependenceJune 2024 1:54amUnknown ResolvedMicroscopic hematuriaJune 2024 11:10amUnknownResolvedProteinuria October 24, 2024 11:09amUnknownResolvedHypertensionMay 2024 10:46amUnknown ResolvedDehydrationJune 2024 2:13amUnknownResolvedHypokalemiaJune 2024 2:16amUnknownResolved Medications Medication Status Dose Units Route Directions Qty Days Refills S tart Date Stop Date End Date Reason(s) Instructions Adherence Indomethacin 50 mg capsule Active 50 MG PO Three times miroslava ly as needed for gout 21 7 0 December 31, 2 025 12:00am Gout Gout, unspecifiedadminister with food or milkComplies with drug therapyTramadol 50 mg wpyvcuXapaoz06SQAEDopyc 8 hours as needed for nsdu415Qamucmc 2024 12:00amRight knee pain Pain in right kneeComplies with drug therapyHydrocodone-Acetaminophen 5-325 mg soqsdhDgosrplccfti9LJATFOjcxv 8 hours as needed for krdq169Vrdbowp 2024February 17, 2025 10:44amRight knee pain Swelling of right knee Pain in right knee Effusion, right knee8 tabletsPrednisone 20 mg VzrtaoQnjhvinktogw45ECKHNzexn678 October 25, 2024 12:00amOctober 2024 1:10pmAmlodipine 5 mg Tablet Xjiwqyvhkzue9UFPREjyod125Sfuy 30th, 2025 12:00amOctober 2024 1:10pm Lisinopril 10 mg jejuqsPlwubwgajvjv66GHJWXrlnxAtm 12th, 2025 12:00amMay 2024 10:08amAllopurinol 100 mg bhxsyuHwoyhymmtqkp638NAIJDrpae as neededSeptember 06, 2024 12:00amMa2024 10:08amLisinopril 30 mg yhfhhqStwikr08KNSFFkgkx63197 September 06, 2024 10:04amHypertension Essential (primary) hypertensionOn Hold: Hold for now. Use amlodipine instead for blood pressure control.Complies with drug therapyIndomethacin 50 mg capsule Ghmllsxvycxa09QJUQHixyx times hgsmn27197Svt 12th, 2025 12:00amJune 2024 3:01amGout Gout, unspecified flaresadminister with food or milkAllopurinol 100 mg grnzliBapsvl405FICGLusax64 901September 06, 2024 10:07amGout Gout, unspecifiedComplies with drug therapyPhentermine (Adipex-P) 37.5 mg tablet Saioyofeiwwo59.8UJZANszkm94388Zto 12th, 2025 12:00amJune 2024 10:33am Obesity Body mass index (BMI) of 34.0 to 34.9 in adult Hypertension Obesity, unspecified Body mass index [BMI] 34.0-34.9, adult Essential (primary) hypertensionmust administer 30 minutes before or 1-2 hours after breakfastPhentermine (Adipex-P) 37.5 mg tzjsybBrmhmfctwcwo92.1DLXFQeszs01 300June 2024 10:32amAugust 2024 9:42amObesity Body mass index (BMI) of 34.0 to 34.9 in adult Hypertension Obesity, unspecified Body mass index [BMI] 34.0-34.9, adult Essential (primary) hypertensionmust administer 30 minutes before or 1-2 hours after breakfastIbuprofen 800 mg tabletActiveMGPOOctober 2024 12:00am Complies with drug therapyColchicine 0.6 mg tabletActive0.6MGPOTwice hfzer914 February 03, 2025 12:00amTake 2 tabs initially, then take 1 tab 1 hour later followed by 1 tablet twice daily.Complies with drug therapyHydrocodone- Acetaminophen 5-325 mg hzghffZjsupqyuvwwl0TCRYGGzact 8 hours as needed for pain8 70October 2024October 2024 1:24pmRight knee pain Swelling of right knee Pain in right knee Effusion, right knee8 tabletsHydrocodone-Acetaminophen 5-325 mg tablet Euoractpfhcs2DFCZKMbpyh 8 hours as needed for hifn545Hrfibbf 2024October 2024 2:34pmRight knee pain Swelling of right knee Pain in right knee Effusion, right knee8 tabletsHydrocodone-Acetaminophen 5-325 mg pdsegwZipzbr4NGK POEvery 8 hours as needed for zbst8100Vlwogpu 2024Right knee pain Swelling of right knee Pain in right knee Effusion, right kneeten tabletsComplies with drug therapy Procedures Procedure Date Performed Status MR knee RT wo con February 15, 2025 9:00am comp leted Relevant Diagnostic Tests and/or Laboratory Data Laboratory Results Test Collection Date/Time Result Date/Time Result Interpretation Reference Range Result Comment Performing Site Miscellaneous Test February 03, 2025 1:15pm February 03, 1:15pm COMMENT .Test Ordered: [id number] Cell Ct, Synovial w/CrystalsColor, Fluid Yellow CB Reference Range: YellowClarity, Fluid Cloudy [A ] CB Reference Range: ClearNucleated Cells, [place] [address] [H ] cells/uL CBReference Range: 0- 200RBC, Fluid 6000 /uL CB Reference Range: Not Estab.Neut, Fluid 99 % CB Reference Range: Not Estab.Lymphocytes, Fluid 1 % CB Reference Range: Not Estab.Macrophages 0 % CB Reference Range: Not Estab.Eosinophils, Fluid 0 % CB Reference Range: Not Estab.Lining Cells, Synovial [facility]OL[facility] Reference Range: .Crystal,Synovial/Joint Fl Comment CB Reference Range: None seenNo crystals seen under normal or polarized light.Comments: [facility] Reference Range: .Performed at: [facility] Lab[address] [id number] Director: Laurent Walker PhD, Phone: [phone] Fluid GlucoseOctober 2024 1:15pmOctober 2024 1:15pm<2 mg/dL. : BODY FLUID TYPE : GLUCOSE : : : : : Amniotic Fluid : 45 - 76 : : : : : Bile, Clear : < 5 : : : : : Bile, Yellow : < 8 : : : : : Lymph : 48 - 200 : : : : : Nasal Secretion : < 10 : : : : : Pleural Fluid : 65 - 99 : :__ : : : Saliva : < 2 : : (Mixed Glands) : : : : : : Sweat : < 7 : : : : : SynovialFluid : 65 - 99 : : : : : Tears : 76 - 288 : : : : Ye W, Ida V. Reference Intervals for Adults and Children 2008. Ninth edition (V9.1) [employer], [facility]; [place]: October 2008.Verified by repeat analysisPerformed at: [address] [id number] Director: Laurent Walker PhD, Phone: [phone] Diagnostic Imaging Reports Author Ervin Andrade Wilson HealthAuthoredOctephraim [facility] 2024 9:47amReportDictated Date/TimeDictated ByStatusRadiology ReportOctephraim mcdowell regional medical center 2024 9:47amMarkaitlin Andrade II [facility] [place] [address] [place] [address] MRI Report Signed Patient: Tu Harrison I MR#: [id number] : 1995 Acct:[id number] Age/Sex: 29 / M ADM Date: 5 Loc: [facility] Room: Type: [facility] Attending Dr: Luis Fonseca DO Copies to: Luis Fonseca DO~ Ordering Provider: Luis Fonseca DO Date of Service: 02/15/25 MR/MR knee RT wo con: eval for any internal derangement MR knee RT wo con 02/15/2025 9:40 AM SIGNS AND SYMPTOMS: eval for any internal derangement PROTOCOL: Right knee pain, difficulty with weightbearing COMPARISON: 02/02/2025 FINDINGS: Fluid: There is a moderate to large complex joint effusion. There is a Lin's cyst which measures 0.5 x 0.8 x 1.9 cm in greatest dimension.. Medial compartment: Medial meniscus: Intact. Medial collateral ligament: Intact. Medial femoral condyle cartilage: Preserved. Medial tibial plateau cartilage: Preserved. Lateral compartment: Lateral meniscus: Intact. Lateral collateral ligament: Intact. Lateral femoral condyle cartilage: Preserved. . Lateral tibial plateau cartilage: Preserved. Osteophytosis. Posterolateral corner: Popliteus tendon: Intact. Popliteofibular ligament: Intact. Proximal tibiofibular joint: Preserved. Anterior compartment: Alignment: There is slight lateral subluxation of the patella. The AT-TG distance measures 2 cm suggesting patellofemoral instability. Quadriceps tendon: Intact. Patellar tendon: Intact. Retinaculum: Medial intact. Lateral intact. Patellar cartilage: There is mild partial thickness chondromalacia along the lateral articular facet of the patella. Trochlea: Preserved.. Plica: None Hoffa fat pad: Normal Intercondylar compartment: Anterior cruciate ligament: Intact. Posterior cruciate ligament: Intact. Bones (other than subarticular marrow): Marrow edema is noted along the tibial spines Muscles: There is edema along the distal medial head of the gastrocnemius tendon near the insertion possibly representing tendinopathy. Vessels: Normal. Nerves: Normal. MR/MR knee RT wo con IMPRESSION: There is a moderate to large complex joint effusion. 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 There is slight lateral subluxation of the patella. The AT-TG distance measures 2 cm suggesting patellofemoral instability. Mild partial thickness chondromalacia is noted along the lateral articular facet of the patella. Subtle edema is noted in the subcortical marrow of the tibial spines. There is edema along the distal medial head of the gastrocnemius tendon near the insertion possibly representing tendinopathy. No significant marrow edema or erosive changes are noted otherwise. Impression dictated by: Ervin Andrade M.D. 02/15/2025 9:57 AM Dictation Location: [place] [address] Transcribed By: [facility] 02/15/2557 Dictated By: Ervin Andrade II, MD 02/15/2547 Signed By: <Electronically signed by Ervin Andrade II, MD in [place]> 02/15/25956 Vital Signs Vital Reading Result Reference Range Collection Date/Time Height 72 [in_i] February 02, 2025 1:16ugCranzx702.13 kgOctober 2024 1:02pmBody Temperature 97.3 [degF]97.6-99.0October 2024 1:02pmHeart Rate95 /ytt06-053Hvdskhe 2024 1:02pmOxygen saturation by Pulse ezornvuc59 %95-100Octephraim m[facility] 2024 1:02pm BP Xiwxejnn053 mm[Hg]100-140[facility] 2024 1:02pmBP Gtqhicpiw66 mm[Hg]60-100 February 02, 2025 1:02pmBMI (Body Mass Index)33.2 kg/q5Oqgihxy 2024 1:02pm Slzkvb17 [in_i]February 17, 2025 10:64bhVhuogq041.13 kgMcl[facility] 2024 10:12amBMI (Body Mass Index)33.2 kg/j3Ampboge 2024 10:12am Advance Directives Advance Directive Response Recorded Date/ Time Advance Directives No August 28, 2020 4:01pm Insurance Providers Guarantor Tu Harrison I Address [address] [facility] [id number] Info.Home Phone: Coverage Status Update:2024 Payer Group Member ID Coverage Type Subscriber Relationship to Subscriber Effective Date Expiration Date MMO Id: [id number] O[place] Mar Id: [id number] [address] [facility] [id number] Home Phone: Self Encounters Encounter Location(s) Arrival/Admit Date Discharge/Departure Date Discharge/Departure Disposition Provider(s) Departed Physician/ Provider Office Visit -[facility] February 02, 2025 1:00pm February 02, 2025 1:25pm Discharged to home care or self care (routine discharge) Allison Carr APRN CNP Departed Physician/ Provider [facility] 03, [facility]25 12:08pm February 03, 2025 1:28pm Discharged to home care or self care (routine discharge) Luis Fonseca DO Departed Clinical -[facility] [address] Closed February 15, 2025 8:59am February 15, 2025 9:00am Discharged to home care or self care (routine discharge) Luis Fonseca DO Departed Physician/ Provider Office Visit -[facility] February 17, 2025 9:49am February 17, 2025 10:47am Discharged to home care or self care (routine discharge) Luis Fonseca DO Recent Diagnosis Onset Date Admit Date Right knee pain Unknown February 02 1:00pm Right leg pain Unknown February 02 1:00pm Swelling of right knee Unknown February 022024 1:00pm Swelling of right lower extremity Unknown February 02, 2025 1:00pm Right knee pain Unknown February 03 12:08pm Swelling of right knee Unknown February 032024 12:08pm Right knee pain Unknown February 17 9:49am Swelling of right knee Unknown January 272024 9:49am Assessments Diagnosis Onset Date Resolution Status Admit Date Right knee pain acuteOctober 2024 1:00pmRight leg painacuteOctober 2024 1:00pmSwelling of right kneeacuteOctober 2024 1:00pmSwelling of right lower extremity acuteOctober 2024 1:00pmRight knee painacuteOctober 2024 12:08pm Swelling of right kneeacuteOctober 2024 12:08pmRight knee painacuteOctober 2024 9:49amSwelling of right kneeacuteOctober 2024 9:49am Plan of Treatment Author Allison Carr [facility] 2024 2:05pmDiscussed with pt due to the swelling and pain would refer for an ultrasound to rule out Blood clot. Will also obtain and x-ray of the knee due to swelling. Will call with results and further recommendations. If no blood clot will refer to ortho for further evaluation. Pt verbalzies understanding and agrees to plan of care. Author [facility] 20[facility] 1:43pmAdvised removing some fluid from the right knee, Patient agreed. Under sterile conditions, inserted a 18G needle into the right knee joint and aspirated about 60 cc of yellow joint fluid from the right knee. Patient tolerated the procedure well. Fluid sent to lab for analysis. Right knee wrapped in 6in alea bandage for swelling control. Will call the paient back will the results of the fluid. Anti-inflammatories prescribed to the patient as well 8 tablets of norco for the uncontrollable pain. Author Rose [facility] 2024 10:46amWe discussed exam findings, symptoms, and imaging and likely etiologies of the patient's pain. We discussed conservative management vs surgical intervention. The patient wishes to proceed with surgery in the form of diagnostic right knee arthroscopy with synovial biopsy. We discussed the risks, benefits, and alternatives to surgery in general, including the potential outcomes with foregoing treatment altogether. The risks include, but are not limited to, the risk of anesthesia up to and including , infection, bleeding, tendon damage, nerve damage, vascular damage, stiffness, weakness, loss of range of motion, arthrofibrosis, failure to alleviate symptoms, worsening of symptoms, continued pain, continued mechanical symptoms, arthritic pain, post traumatic arthritis, wound healing problems, formation of cutaneous scars secondary to surgical incisions, deep venous thrombosis, pulmonary embolism, reflex sympathetic dystrophy, unforeseen complications and the need for further surgery. Procedure: Diagnostic Right Knee Arthroscopy with Synovial Biopsy. Antibiotics: [Ancef] [post op abx] DVT ppx: [Aspirin 81mg BID x 4 weeks] Same Day Surgery: [Yes] Bed: [Regular OR bed] Instruments needed: [] Future Tests Future scheduled test information is unavailable Pending Tests Test Name Ordered Date Scheduled Date XR knee RT 3V - NOT FOR ER USE February 02, 2025 1:14pm US venous duplex LE RTOctober 2024 1:14pmCrystals,Synovial FluidOctober 2024 1:19pm Future Visits Future appointment information is unavailable Future Procedures Procedure Name Ordered Date Scheduled Date Body Fluid Culture February 03, 2025 1:19pm Cell Count&Diff,Synovial FluidOctober 2024 1:19pmGlucose, Synovial Fluid February 03, 2025 1:19pm Future Medications Future medication information is unavailable Patient Instructions Patient instructions are unavailable
--- OUTSIDE RECORDS SUMMARY | 2025-02-24 13:13 | XMS_ITS | Clinical Summary ---
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 Name Role Phone Unavailable Primary Care Provider Unavailabl e Social History Tobacco UseTypesPacks/DayYears UsedDateSmoking Tobacco: Never AssessedSex and Gender InformationValueDate RecordedSex Assigned at BirthNot on fileLegal Sex Male07/10/2022 6:42 PM EDTGender IdentityNot on fileSexual OrientationNot on file Last Filed Vital Signs Vital SignReadingTime TakenCommentsBlood Pressure--Pulse--Temperature-- Respiratory Rate--Oxygen Saturation--Inhaled Oxygen Concentration--Tuoall828 kg (232 lb)08/22/2021 12:00 PM PGRNpbhnm302.3 cm (5' 11 )08/22/2021 12:00 PM EDT Body Mass Index32.36008/22/2021 12:00 PM EDT Plan of Treatment Not on file Insurance
--- OUTSIDE RECORDS SUMMARY | 2025-02-24 13:13 | XMS_ITS | Clinical Summary ---
Author Organization [facility] Address [address] [place] [address] Care Team Providers Care Absence Management Consultant Name Role Phone Nilaynaldoansir Federico OTR/L, CHT Unavailable Unav ailable Prisca Caballero OTR/L, CHT Unavailable [phone] Source Comments The following information is NOT included in Care Everywhere downloads:Psychiatric notes, ECG results, Cardiac Rehab notes, Pulmonary Function notes, data from [facility] (includes but not limited toPregnancy data,audiograms, eye exams, pre-surgical evaluation notes, well-child exam data).[facility] Allergies No known active allergies Medications MedicationSigDispense QuantityRefillsLast FilledStart DateEnd DateStatus cephALEXin (KEFLEX) 500 MG capsule Take 1 Capsule by mouth 4 times daily. 40 Capsule 5Active allopurinol (ZYLOPRIM) 100 MG tablet Take 100 mg by mouth daily.5Active lisinopril (ZESTRIL) 30 MG tablet Take 30 mg by mouth daily.5Active ondansetron (Zofran) 4 MG tablet Take 1 Tablet by mouth every 12 hours as needed for Nausea. 15 Tablet 06/09/2024 3:03 PM EST5Active ciprofloxacin (CIPRO) 500 MG tablet Take 1 Tablet by mouth 2 times daily. 20 Tablet 5Active gabapentin (NEURONTIN) 300 MG capsule Take 1 Capsule by mouth 3 times daily for 90 days. 90 Capsule 5Active bacitracin 500 UNIT/GM OINT ointment Apply topically 3 times daily. Apply thin layer to affected area. 28 g 5Active ketorolac (TORADOL) 10 MG tablet Take 1 Tablet by mouth every 6 hours as needed for Pain. Do not take other NSAIDs (e.g. advil) while taking toradol 30 Tablet 2:17 PM EDT5Active Active Problems ProblemNoted DateDiagnosed DateAmputation, finger, /21/2025Impaired function of upper rudgszlzf99/18/2025Current yjfsok3206/01/2024 Overview (06/01/2024): Comment on above: Added secondary to documentation in Social History. Gouty arthritis of right ankle06/01/2024Hand laceration involving tendon, right, subsequent wgoqiojuo17/02/2025 Assessment & Plan (06/02/2024 1:33 PM EST): - Dressings removed. - Discussed upcoming surgery, risks, benefits, prognosis, and outcomes. - Dressings placed today: bacitracin, adaptic, gauze, PHU. - OT today for splinting. Maintain splint until surgery. - Pain medication refilled. - Follow up one week post operatively. Open fracture of middle phalanx of zvakbf0005/29/2024Fracture of cervical vertebra 03/14/2016 Immunizations ImmunizationAdministration DatesNext DueDTaP, unspecified formulation (DGO=041) 08/08/1999,06/28/1998,05/03/1998,02/22/1998Hep B (peds/adol, 3-dose) (CVX=08) 05/03/1998,1997Hib (PRP-OMP) (CVX=49)08/08/1999,06/28/1998,05/03/1998, 02/22/1998MMR, Mmmpfmw-Oyqps-Xjtbxwt (CVX=03)08/08/1999Polio, inactivated (IPV) (CVX=10)08/08/1999,05/03/1998,02/22/1998Tdap (OHC=671)05/29/2024 Social History Tobacco UseTypesPacks/DayYears UsedDateSmoking Tobacco: Every DayCigarettes Smokeless Tobacco: Never Tobacco Cessation:Counseling Given: Yes Comments:Cutting down to 1-2 cigs a day ( 05/2024) SS Alcohol UseStandard Drinks/WeekCommentsYes0 (1 standard drink = 0.6 oz pure alcohol)daily 2-3 mixed drinks after workSubstance UseTypesUse/WeekCommentsNot CurrentlySex and Gender InformationValueDate RecordedSex Assigned at BirthNot on fileLegal VrgRtgl5005/30/2024 12:12 AM ESTGender IdentityNot on fileSexual OrientationNot on file Last Filed Vital Signs Vital SignReadingTime TakenCommentsBlood Iqzmrkfr321/9607/23/2024 3:00 PM EDT Eixuz555407/23/2024 3:00 PM QBDDcyeoqttiac27.2 ??C (97.1 ??F)07/23/2024 2:25 PM EDTRespiratory Eowe822107/23/2024 3:00 PM EDTOxygen Hralbzjujg50%07/23/2024 3:00 PM EDTInhaled Oxygen Concentration--Nkvgqz932.4 kg (250 lb)07/23/2024 12:31 PM ISAGqtlvh315.9 cm (6')07/23/2024 12:31 PM EDTBody Mass Index33.9107/23/2024 12:31 PM EDT Plan of Treatment Health MaintenanceDue DateLast DoneCommentsHepatitis B (HBV) Vaccine (3 of 3 - 3-dose series), 1997HIV Test2012Hepatitis C Prsonhcd46/18/2016Hepatitis A (HAV) Vaccine (optional start 19+ years)2016 Pneumococcal Vaccine(s) (1 of 2 - PCV)2016HPV Vaccine (optional start 27- 45 years)2024OVID-19 Vaccine (1 - 2024- season)2024Influenza Vaccine (#1)2024Tetanus (Td or Tdap) Xhafmgq38/01/75671305/29/2024Shingles (RZV) Vaccine (1 of 2)09/13/2047Tdap OjkamdsLsykgiykq82/01/2025 Medical Devices ExplantedTypeAreaManufacturerDevice IdentifierShelf Expiration DateModel / Serial / LotK Wire Christopher 2 Pnt 4in .035 Bx6 [id number] - [id number] Implanted:Qty: 1 on 06/09/2024 by Cely Strauss MD at INPATIENT DEPARTMENTS Explanted:Qty: 1 on 07/23/2024 by Cristopher Kaur DMD, MD at INPATIENT DEPARTMENTSImplant WireRight: [employer] and [id number] / / [id number] Wire Christopher 2 Pnt 4in .035 Bx6 [id number] - [id number] Implanted:Qty: 1 on 06/09/2024 by Cely Strauss MD at INPATIENT DEPARTMENTS Explanted:Qty: 1 on 07/23/2024 by Emelina Diego DO at INPATIENT DEPARTMENTSImplant WireRight: [employer] and [id number] / / [id number] Wire Christopher 2 Pnt 4in .035 Bx6 [id number] - [id number] Implanted:Qty: 1 on 06/09/2024 by Cely Strauss MD at INPATIENT DEPARTMENTS Explanted:Qty: 1 on 07/23/2024 by Emelina Diego DO at INPATIENT DEPARTMENTSImplant WireRight: [employer] and Vrqloe03/[id number] / / [id number] Wire Christopher 2 Pnt 4in .035 Bx6 [id number] - [id number] Implanted:Qty: 1 on 06/09/2024 by Cely Strauss MD at INPATIENT DEPARTMENTS Explanted:Qty: 1 on 07/23/2024 by Emelina Diego DO at INPATIENT DEPARTMENTSImplant WireRight: [employer] and [id number] / / [id number] Wire Christopher 2 Pnt 4in .035 Bx6 [id number] - [id number] Implanted:Qty: 1 on 06/09/2024 by Cely Strauss MD at INPATIENT DEPARTMENTS Explanted:Qty: 1 on 07/23/2024 by Emelina Diego DO at INPATIENT DEPARTMENTSImplant WireRight: [employer] and [id number] / / [id number] Insurance Care Teams Team MemberRelationshipSpecialtyStart DateEnd Date Federico Galeana OTR/L, CHT [address] [place] [address] Occupational TherapistOccupational Therapy06/26/24 Prisca Caballero OTR/L, CHT [address] [place] [address] Occupational TherapistOccupational Therapy06/26/24
--- OUTSIDE RECORDS SUMMARY | 2025-02-24 13:32 | XMS_ITS | CCD ---
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 reportOrdered By: Steven Andrade on 66-02-8048Wmsew reportAVITA HEALTH SYSTEM [facility] [place] [address] [place] [id number] MRI Report Signed Patient: Tu Casiano I MR#: [id number] : 1995 Acct:[id number] Age/Sex: 29 / M ADM Date: 5 [facility] Type: REG CLI Attending Dr: Luis Fonseca DO Copies to: [...] the distal medial head of the gastrocnemius tendonnear the insertion possibly representing tendinopathy. Vessels: Normal. Nerves: Normal. MR/MR knee RT wo con IMPRESSION: There is a moderate to large complex joint effusion. 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 There is slight lateral subluxation of the patella. 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 Mild partial thickness chondromalacia is noted along the lateral articular facetof the patella. Subtle edema is noted in the subcortical marrow of the tibial spines. There is edema along the distal medial head of the gastrocnemius tendon near theinsertion possibly representing tendinopathy. No significant marrow edema or erosive changes are noted otherwise. Impression dictated by: Steven Andrade M.D. 02/15/2025 9:57 AM Dictation Location: [place] [address] Transcribed By: [facility] 02/15/25956 Dictated By: Steven Andrade II, MD 02/15/25946 Signed By: 02/15/25956 [facility] Work Phone: no Panel InformationOrdered By: Outside Provider on 90-99-4636Gtjg Fluid Glucose<2 mg/dL.[facility] Jewish HospitalComment on above: : BODY FLUID TYPE : GLUCOSE : [...] Pleural Fluid : 65 - 99 : :____ : : : Saliva : < 2 : : (Mixed Glands) : : : : : : Sweat : < 7 : : : : : Synovial Fluid : 65 - 99 : : : : : Tears : 76 - 288 : : : : Ida Powers V. Reference Intervals for Adults and Children 2007. Ninth edition (V9.1) [employer], [facility]; [place]: October 2008.Verified by repeat analysisPerformed at: [address] [id number] Director: Laurent Walker PhD, Phone: [phone] TestCOMMENT.The Jewish HospitalComment on above:Test Ordered: [id number] Cell Ct, Synovial w/CrystalsColor, Fluid Yellow CB Reference Range: YellowClarity, Fluid Cloudy [A ] CB Reference Range: ClearNucleated Cells[place] [address] [H ] cells/uL CB Reference Range: 0-200RBC, Fluid 6000 /uL CB Reference Range: Not Estab.Neut, Fluid 99 % CB Reference Range: Not Estab.Lymphocytes, Fluid 1 % CB Reference Range: Not Estab.Macrophages 0 % CB Reference Range: Not Estab.Eosinophils, Fluid 0 % CB Reference Range: Not Estab.Lining Cells, Synovial IT COMPLIANCE ANALYST NOLAB Reference Range: .Crystal,Synovial/Joint Fl Comment CB Reference Range: None seenNo crystals seen under normal or polarized light.Comments: IT COMPLIANCE ANALYST NOLAB Reference Range: .Performed at: - [facility] [id number] Director: Laurent Walker PhD, Phone: [phone] CBC Without Diffon 60-57-6432Pnrtdhwyypn distribution width (RBC) [Ratio]14.2 % Nbwvse45.0-14.8The [facility] Physician GroupComment on above:Performed By: #### RENAL, CBCNO #### [facility] [address] [place] [id number] USAHematocrit (Bld) [Volume fraction]48.6 %Gcrykz97.8-50.0The [facility] PhiladelphiaComment on above:Performed By: #### RENAL, CBCNO #### [facility] [address] [place] [address] USAHemoglobin (Bld) [Mass/Vol]16.6 g/hGYnrnyu40.0-17.0The [facility] Physician GroupComment on above:Performed By: #### RENAL, CBCNO #### [facility] [address] [place] [address] USAH (RBC) [Entitic mass]32.2 aiQatkuh39.5-35.2The [facility] PhiladelphiaComment on above:Performed By: #### RENAL, CBCNO #### [facility] [address] [place] [id number] USAV (RBC) [Entitic vol]94.2 sRMkmado75.5-101The [facility] Physician GroupComment on above:Performed By: #### RENAL, CBCNO #### [facility] [address] [place] [address] USAMean Corpuscular HGB Conc34.2 g/iTRwkhzd99.5-35.6The [facility] Physician GroupComment on above:Performed By: #### RENAL, CBCNO #### [facility] [address] [place] [address] USAPlatelet mean volume (Bld) [Entitic vol]9.9 fLNormal 6.6-10.1The [facility] Physician GroupComment on above:Result Comment: PERFORMED BY: [place] [address] PATHOLOGIST CAR REPAIRER HELPER VARUN ARGUETA M.D.Performed By: #### RENAL, CBCNO #### [place] [address] USAPlatelets (Bld) [#/Vol]160 10*3/zXXoivmf640-714Rpf [facility] Physician GroupComment on above:Performed By: #### RENAL, CBCNO #### [place] [address] USARBC (Bld) [#/Vol]5.16 10*6/uLNormal3.90-5.60The [facility] Physician GroupComment on above:Performed By: #### RENAL, CBCNO #### [place] [address] USAWhite Blood Count12.9 [CFU]/mLHigh4.1-10.5The [facility] Physician GroupComment on above:Performed By: #### RENAL, CBCNO #### [place] [address] USAMetanephrine Urine Randomon 85-15-7402Ofsnwodmcs, Random Ur101.5 mg/dLNormalNot Estab.The [facility] Physician GroupComment on above: Performed By: #### MG, BMP #### [place] [address] USAMetanephrine Random Ykiyv138WtugcsJeeotiyljTuh [facility] Physician [facility] Medical CenterComment on above:Result Comment: This test was developed and its performance characteristics determined by [facility]. It has not been cleared or approved by the Food and Drug Administration.Performed By: #### MG, BMP #### [place] [id number] USAMetanephrine/Creatinine Ratio0.5Ymjdct8.0-1.0The [facility] Physician GroupComment on above:Result Comment: Result Units: ug/mg Creat Performed at: [facility] [id number] Learning Technologist: Ata Fletcher MD, Phone: [phone] By: #### MG, BMP #### [place] [address] USANormetanephrine Random Amqzb914EfzkynJrvohjmkjKmf [facility] Physician [facility] Medical CenterComment on above:Result Comment: This test was developed and its performance characteristics determined by [facility]. It has not been cleared or approved by the Food and Drug Administration. PERFORMED BY: [place] [address] PATHOLOGIST CAR REPAIRER HELPER VARUN ARGUETA M.D.Performed By: #### MG, BMP #### [place] [address] USAPartial Thromboplastin Timeon 39-71-9983jMXF Coag (Bld) [Time]29.8 uSwxorj16.1-36.5The [facility] Physician [facility] Medical CenterComment on above:Result Comment: A hematocrit value greater than 55% may lead to inaccurate results in coagulation testing. Patients having hematocrit values >55% require a special collection tube for coagulation studies. Please contact the laboratory at [phone] for redraw instructions. PERFORMED BY: [place] [address] PATHOLOGIST CAR REPAIRER HELPER VARUN ARGUETA M.D.Performed By: #### PTT, PT #### [place] [address] USAProthrombin Time INRon 65-27-9582DNL Coag (PPP) [Relative time]0.9 {INR}NormalThe [facility] Physician GroupComment on above:Result Comment: INR Therapeutic Range A) Pre- and [...] patients with mechanical heart valves: 3 - 4.5Performed By: #### PTT, PT #### [facility] [address] [place] [address] USAPT Coag (PPP) [Time]10.2 sNormal9.0-12.9The [facility] Physician GroupComment on above:Result Comment: A hematocrit value greater than 55% may lead to inaccurate results in coagulation testing. Patients having hematocrit values >55% require a special collection tube for coagulation studies. Please contact the laboratory at [phone] for redraw instructions.Performed By: #### PTT, PT #### [place] [id number] USARenal Function Panelon 09-48-1596Rdtsscr [Mass/Vol]3.7 g/dLNormal3.5-5.7The [facility] Physician GroupComment on above:Performed By: #### RENAL, CBCNO #### [place] [address] USAAnion gap [Moles/Vol]10.8 mmol/LNormal6.0-15.0The [facility] Physician GroupComment on above:Performed By: #### RENAL, CBCNO #### [place] [address] USACalcium [Mass/Vol]9.0 mg/dLNormal8.6-10.3The [facility] Physician GroupComment on above:Performed By: #### RENAL, CBCNO #### [place] [address] USAChloride [Moles/Vol]105 mmol/FVdsdnh81-649Ots [facility] Physician GroupComment on above:Performed By: #### RENAL, CBCNO #### [facility] [address] [place] [address] USACO2 [Moles/Vol]27.9 mmol/SXohdaf88.0-31.0The [facility] Physician GroupComment on above:Performed By: #### RENAL, CBCNO #### [facility] [address] [place] [address] USACreatinine [Mass/Vol]0.94 mg/dLSignificant change down 0.70-1.30The [facility] Physician GroupComment on above:Performed By: #### RENAL, CBCNO #### [facility] [address] [place] [address] USACreatinine Clr Calc Bjtzjfnh526.74NormalThe [facility] Physician GroupComment on above:Result Comment: PERFORMED BY: [place] [address] PATHOLOGIST CAR REPAIRER HELPER VARUN ARGUETA M.D.Performed By: #### RENAL, CBCNO #### [place] [address] USAGFR/1.73 sq M.predicted MDRD (S/P/Bld) [Vol rate/Area] mL/min/{1.73_m2}NormalThe [facility] Physician GroupComment on above:Performed By: #### RENAL, CBCNO #### [place] [address] USAGlucose [Mass/Vol]96 mg/lFWyaaql72-473Ubi [facility] Physician GroupComment on above:Result Comment: Random Glucose Reference Range is dependent on time and content of last meal. Glucose of more than 200 mg/dL in a nonstressed, ambulatory subject supports the diagnosis of Diabetes Mellitus. ADA recommended reference rangePerformed By: #### RENAL, CBCNO #### [place] [address] USAPhosphate [Mass/Vol]4.1 mg/dLNormal2.5-4.5The [facility] Physician GroupComment on above:Performed By: #### RENAL, CBCNO #### [place] [address] USAPotassium [Moles/Vol]3.7 mmol/LNormal3.5-5.1The [facility] Physician GroupComment on above:Performed By: #### RENAL, CBCNO #### [facility] [address] [place] [address] USASodium [Moles/Vol]140 mmol/FVzghjc215-983Alv [facility] Physician GroupComment on above:Performed By: #### RENAL, CBCNO #### [facility] [address] [place] [address] USAUrea nitrogen [Mass/Vol]17 mg/dLNormal7-25The [facility] Physician GroupComment on above:Performed By: #### RENAL, CBCNO #### [facility] [address] [place] [address] USAUS renal doppler limited 23-14-2713YF renal doppler [facility] [place] [address] [place] [address] Ultrasound Report Signed Patient: Tu Casiano I MR#: [id number] : 1995 Acct:[id number] Age/Sex: 29 / M ADM Date: 10/23/24 Loc: Room: [address] [place] [address] Type: DIS IN Attending Dr: Poli Florentino MD Ordering Provider: Lydia Rajan DO, RES Date of Service: 10/23/24 US/US renal doppler limited: Hypertension Copies to: Lydia Rajan DO, RES Obaydah M Daromar, MD Renal artery duplex examination performed using B-mode, color flow and spectral Doppler assessment. (CPT: 60045) INDICATION: FINDINGS: Aorta: PSV 92.5 cm/s Right [...] Jacobs MD,FACS,FSVS 10/25/2024 11:29 AM Dictation Location: [place] [address] Tech: Alka Trujillo Transcribed By: [facility] 10/25/24 1129 Dictated By: Kenji Jacobs MD 10/25/24 1128 Signed By: 10/25/24 1129[facility] Physician GroupUrine Cultureon 10-25-2024 Bacteria identified Cx Nom (U)<9,000 colonies/ml mixed bacterial skin contaminants 2 Days PERFORMED BY: [place] [address] PATHOLOGIST CAR REPAIRER HELPER VARUN ARGUETA M.D.NormalThe [facility] Physician [facility] CenterComment on above: Performed By: #### CUU #### [place] [address] USAANA with Reflexon 44-32-8938FYM with ReflexNegativeNormal NegativeThe [facility] Physician [facility] CenterComment on above:Result Comment: Performed at: - [facility] [id number] Learning Technologist: Laurent Walker PhD, Phone: [phone] PERFORMED BY: [place] [address] PATHOLOGIST CAR REPAIRER HELPER VARUN ARGUETA M.D.Performed By: #### MG, BMP #### [place] [address] USAANCA Profile (ANCA+MPO+PR3)on 10-24-2024 Antimyeloperoxidase (MPO) Abs<0.3Mbjabe8.0-0.9The [facility] Physician [facility] Comment on above:Performed By: #### MG, BMP #### [place] [address] USAAtypical pANCA<1:20NormalNeg:<1:20The [facility] Physician GroupComment on above:Result Comment: The atypical pANCA pattern has been observed in a significant percentage of patients with ulcerative colitis, primary sclerosing cholangitis and autoimmune hepatitis. Performed at: - [facility] [address] [id number] Learning Technologist: Ata Fletcher MD, Phone: [phone] Performed at: - [facility] [address] [id number] Learning Technologist: Laurent Walker PhD, Phone: [phone] By: #### MG, BMP #### [place] [address] USACytoplasmic (C-ANCA)<1:20NormalNeg:<1:20The [facility] Physician GroupComment on above:Performed By: #### MG, BMP #### [place] [address] USAPerinuclear (P-ANCA)<1:20NormalNeg:<1:20The [facility] Physician GroupComment on above:Result Comment: The presence of positive fluorescence exhibiting P-ANCA or C-ANCA patterns alone is not specific for the diagnosis of Christiano's Granulomatosis (WG) or microscopic polyangiitis. Decisions about treatment should not be based solely on ANCA IFA results. The International ANCA Group Consensus recommends follow up testing of positive sera with both LA- 3 and MPO-ANCA enzyme immunoassays. As many as 5% serum samples are positive only by EIA. Ref. AM J Clin Pathol 1999;111:507-513.Performed By: #### MG, BMP #### [place] [address] USAProteinase 3 (PR3) Antibodies<0.6Ehxmgg8.0-0.9The [facility] Physician GroupComment on above:Result Comment: PERFORMED BY: [place] [address] PATHOLOGIST CAR REPAIRER HELPER VARUN ARGUETA M.D.Performed By: #### MG, BMP #### [place] [id number] USAAldosteroneon 08-67-2442Nmyidanehwm<1.3Pwxrmn4.0-30.0The [facility] Physician GroupComment on above:Result Comment: This test was developed and its performance characteristics determined by [facility]. It has not been cleared or approved by the Food and Drug Administration. Performed at: [facility] [id number] Learning Technologist: Ata Fletcher MD, Phone: [phone] PERFORMED BY: [place] [address] PATHOLOGIST CAR REPAIRER HELPER VARUN ARGUETA M.D.Performed By: #### MG, BMP #### [place] [address] USAC-Reactive Proteinon 85-57-1524G-Reactive Protein0.9 mg/dL High0.0-0.5The [facility] Physician GroupComment on above:Result Comment: PERFORMED BY: [place] [address] PATHOLOGIST CAR REPAIRER HELPER VARUN ARGUETA M.D.Performed By: #### MG, BMP #### [place] [address] USAComplete Blood Count Auto Diffon 59-10-7685Eiziohnwa (Bld) [#/Vol]0.2 10*3/uLNormal0.0-0.2The [facility] Physician GroupComment on above: Performed By: #### MG, BMP #### [place] [address] USABasophils/100 WBC (Bld)1.3 %Normal.The [facility] Physician GroupComment on above:Performed By: #### MG, BMP #### [place] [address] USAEosinophils (Bld) [#/Vol]0.1 10*3/uLNormal0.0-0.45The [facility] Physician GroupComment on above:Performed By: #### MG, BMP #### [address] [place] [address] USAEosinophils/100 WBC (Bld)1.1 %Normal.The [facility] Physician GroupComment on above:Performed By: #### MG, BMP #### [place] [address] USAErythrocyte distribution width (RBC) [Ratio]15.0 %High 12.0-14.8The [facility] Physician GroupComment on above:Performed By: #### MG, BMP #### [place] [address] USAHematocrit (Bld) [Volume fraction]48.8 %Pdvvys91.8-50.0The [facility] Physician GroupComment on above:Performed By: #### MG, BMP #### [place] [address] USAHemoglobin (Bld) [Mass/Vol]16.5 g/rQSwjrvg57.0-17.0The [facility] Physician GroupComment on above:Performed By: #### MG, BMP #### [place] [address] USALymphocytes (Bld) [#/Vol]3.1 10*3/uLNormal1.00-4.8The [facility] Physician GroupComment on above:Performed By: #### MG, BMP #### [place] [address] USALymphocytes/100 WBC (Bld)27.1 %Normal.The [facility] Physician GroupComment on above:Performed By: #### MG, BMP #### [place] [address] USAMCH (RBC) [Entitic mass]31.8 pcClmrzj77.5-35.2The [facility] Physician GroupComment on above:Performed By: #### MG, BMP #### [place] [address] USAMCV (RBC) [Entitic vol]94.5 rEYpyhln06.5-101The [facility] Physician GroupComment on above:Performed By: #### MG, BMP #### [facility] [address] [place] [address] USAMean Corpuscular HGB Conc33.7 g/aDCsnpub15.5-35.6The [facility] Physician GroupComment on above:Performed By: #### MG, BMP #### [facility] [address] [place] [address] USAMonocytes (Bld) [#/Vol]1.3 10*3/uLHigh0.0-0.8The [facility] Physician GroupComment on above:Performed By: #### MG, BMP #### [facility] [address] [place] [address] USAMonocytes/100 WBC (Bld)11.3 %Normal.The [facility] Physician GroupComment on above:Performed By: #### MG, BMP #### [facility] [address] [place] [address] USANeutrophils (Bld) [#/Vol]6.9 10*3/uLNormal1.8-7.7The [facility] Physician GroupComment on above:Performed By: #### MG, BMP #### [facility] [address] [place] [address] USANeutrophils/100 WBC (Bld)59.2 %Normal.The [facility] Physician GroupComment on above:Performed By: #### MG, BMP #### [facility] [address] [place] [address] USANRBC%0.1 /100{WBC}Normal0-0.5The [facility] Group Comment on above:Performed By: #### MG, BMP #### [facility] [address] [place] [address] USAPlatelet mean volume (Bld) [Entitic vol]10.0 fLNormal 6.6-10.1The [facility] Physician GroupComment on above:Performed By: #### MG, BMP #### [facility] [address] [place] [address] USAPlatelets (Bld) [#/Vol]151 10*3/nZCfkdkf493-179Xxe [facility] Physician GroupComment on above:Performed By: #### MG, BMP #### [facility] [address] [place] [address] USARBC (Bld) [#/Vol]5.17 10*6/uLNormal3.90-5.60The [facility] Physician GroupComment on above:Performed By: #### MG, BMP #### [facility] [address] [place] [address] USAWBC (Bld) [#/Vol]11.6 10*3/uLHigh4.1-10.5The [facility] Physician GroupComment on above:Performed By: #### MG, BMP #### [place] [address] USAWhite Blood Count11.6 [CFU]/mLHigh4.1-10.5The [facility] Physician GroupComment on above:Performed By: #### MG, BMP #### [place] [address] USAComprehensive Metabolic Panelon 60-35-0074Aqdllql [Mass/Vol]3.7 g/dLNormal3.5-5.7The [facility] Physician GroupComment on above: Performed By: #### MG, BMP #### [place] [address] USAAlbumin/Globulin [Mass ratio]1.5 {ratio}NormalThe [facility] Physician GroupComment on above:Performed By: #### MG, BMP #### [place] [address] USAALP [Catalytic activity/Vol]65 U/WYsnwxn17-559Muc [facility] Physician GroupComment on above:Performed By: #### MG, BMP #### [place] [address] USAALT [Catalytic activity/Vol]35 U/LNormal7-52The [facility] Physician GroupComment on above:Performed By: #### MG, BMP #### [place] [address] USAAnion gap [Moles/Vol]9.8 mmol/LNormal6.0-15.0The [facility] Physician GroupComment on above:Performed By: #### MG, BMP #### [facility] [address] [place] [address] USAAST [Catalytic activity/Vol]35 U/BSqypxt43-29Pmu [facility] Physician GroupComment on above:Performed By: #### MG, BMP #### [facility] [address] [place] [address] USABilirubin [Mass/Vol]0.6 mg/dLNormal0.3-1.0The [facility] Physician GroupComment on above:Performed By: #### MG, BMP #### [facility] [address] [place] [address] USACalcium [Mass/Vol]8.9 mg/dLNormal8.6-10.3The [facility] Physician GroupComment on above:Performed By: #### MG, BMP #### [facility] [address] [place] [address] USAChloride [Moles/Vol]103 mmol/PTnchla98-780Fqd [facility] Physician GroupComment on above:Performed By: #### MG, BMP #### [facility] [address] [place] [address] USACO2 [Moles/Vol]28.7 mmol/ROyayzj20.0-31.0The [facility] Physician GroupComment on above:Performed By: #### MG, BMP #### [facility] [address] [place] [address] USACreatinine [Mass/Vol]1.54 mg/dLSignificant change down 0.70-1.30The [facility] Physician GroupComment on above:Performed By: #### MG, BMP #### [facility] [address] [place] [address] USACreatinine Clr Calc Rhucvciv29.49NormalThe [facility] Physician GroupComment on above:Performed By: #### MG, BMP #### [facility] [address] [place] [address] USAGFR/1.73 sq M.predicted MDRD (S/P/Bld) [Vol rate/Area] mL/min/{1.73_m2}NormalThe [facility] Physician GroupComment on above:Performed By: #### MG, BMP #### [place] [address] USAGlobulin (S) [Mass/Vol]2.5 g/dLNormalThe [facility] Physician GroupComment on above:Performed By: #### MG, BMP #### [place] [address] USAGlucose [Mass/Vol]97 mg/qZNbyqwp20-656Ozw [facility] Physician GroupComment on above:Result Comment: Random Glucose Reference Range is dependent on time and content of last meal. Glucose of more than 200 mg/dL in a nonstressed, ambulatory subject supports the diagnosis of Diabetes Mellitus. ADA recommended reference rangePerformed By: #### MG, BMP #### [place] [address] USAPotassium [Moles/Vol]3.5 mmol/LNormal3.5-5.1The [facility] Physician GroupComment on above:Performed By: #### MG, BMP #### [place] [address] USAProtein [Mass/Vol]6.2 g/dLLow6.4-8.9The [facility] Physician GroupComment on above:Performed By: #### MG, BMP #### [place] [address] USASodium [Moles/Vol]138 mmol/SQcxrvb370-703Zjc [facility] Physician GroupComment on above:Performed By: #### MG, BMP #### [place] [address] USAUrea nitrogen [Mass/Vol]19 mg/dLNormal7-25The [facility] Physician GroupComment on above:Performed By: #### MG, BMP #### [place] [address] USAErythrocyte Sedimentation Rateon 78-85-5368WFT (Bld) [Velocity]2 mm/hNormal0-14The [facility] Physician GroupComment on above:Result Comment: PERFORMED BY: [place] [address] PATHOLOGIST CAR REPAIRER HELPER VARUN ARGUETA M.D.Performed By: #### MG, BMP #### [place] [address] USAHIV 1/O/2 Antigen/Antibodyon 34-01-4547ZSZ Screen 4th GenerationNon-ReactiveNormalNon ReactiveThe [facility] Physician GroupComment on above:Result Comment: HIV-1/HIV-2 antibodies and HIV-1 p24 antigen were NOT detected. There is no laboratory evidence of HIV infection. HIV Negative Performed at: - [facility] [id number] Learning Technologist: Laurent Walker PhD, Phone: [phone] PERFORMED BY: [place] [address] PATHOLOGIST CAR REPAIRER HELPER VARUN ARGUETA M.D.Performed By: #### MG, BMP #### [place] [address] USAHepatitis Acute Panelon 16-85-5391HNdHw ScreenNegative NormalNegativeThe [facility] Physician GroupComment on above:Performed By: #### MG, BMP #### [place] [address] USAHepatitis A Antibody IgMNegativeNormalNegativeThe [facility] Physician GroupComment on above:Result Comment: A negative anti-HAV IgM result suggests no recent or current HAV infection.Performed By: #### MG, BMP #### [place] [address] USAHepatitis B Core Antibody IgMNegativeNormalNegativeThe [facility] Physician GroupComment on above:Performed By: #### MG, BMP #### [place] [address] USAHepatitis C Virus AntibodyNon-ReactiveNormalNon Reactive The [facility] Physician GroupComment on above:Performed By: #### MG, BMP #### [place] [address] USAInterpretation Hepatitis CCommentNormal.The [facility] Physician GroupComment on above:Result Comment: Not infected with HCV unless early or acute infection is suspected (which may be delayed in an immunocompromised individual), or other evidence exists to indicate HCV infection. Performed at: [facility] [id number] Learning Technologist: Laurent Walker PhD, Phone: [phone] PERFORMED BY: [place] [address] PATHOLOGIST CAR REPAIRER HELPER VARUN ARGUETA M.D.Performed By: #### MG, BMP #### [place] [address] USARenin Activityon 84-86-8504Rvhlo Gyoscktg95.530Normal 0.167-5.380The [facility] Physician GroupComment on above:Result Comment: This test was developed and its performance characteristics determined by [employer]. It has not been cleared or approved by the Food and Drug Administration. Performed at: [address] [id number] Learning Technologist: Ata Fletcher MD, Phone: [phone] PERFORMED BY: [place] [address] PATHOLOGIST CAR REPAIRER HELPER VARUN ARGUETA M.D.Performed By: #### MG, BMP #### [place] [id number] USABasic Metabolic Panelon 52-42-1777Pvvbq gap [Moles/Vol]9.6 mmol/LNormal6.0-15.0The [facility] Physician GroupComment on above:Performed By: #### BMP, PHOS #### [place] [address] USACalcium [Mass/Vol]9.3 mg/dLNormal8.6-10.3The [facility] Physician GroupComment on above:Performed By: #### BMP, PHOS #### [place] [address] USAChloride [Moles/Vol]102 mmol/EFcnqms31-056Biu [facility] Physician GroupComment on above:Performed By: #### BMP, PHOS #### [place] [address] USACO2 [Moles/Vol]27.3 mmol/WLmdido59.0-31.0The [facility] Physician GroupComment on above:Performed By: #### BMP, PHOS #### [place] [address] USACreatinine [Mass/Vol]3.60 mg/dLSignificant change down 0.70-1.30The [facility] Physician GroupComment on above:Performed By: #### BMP, PHOS #### [place] [address] USACreatinine Clr Calc Fkmydxav44.42NormalThe [facility] Physician GroupComment on above:Result Comment: PERFORMED BY: [place] [address] PATHOLOGIST CAR REPAIRER HELPER VARUN ARGUETA M.D.Performed By: #### BMP, PHOS #### [place] [address] USAGFR/1.73 sq M.predicted MDRD (S/P/Bld) [Vol rate/Area] 22.745 mL/min/{1.73_m2}NormalThe [facility] Physician [facility] CenterComment on above: Performed By: #### BMP, PHOS #### [place] [address] USAGlucose [Mass/Vol]143 mg/lBYwdx40-442Gxj [facility] Physician GroupComment on above:Result Comment: Random Glucose Reference Range is dependent on time and content of last meal. Glucose of more than 200 mg/dL in a nonstressed, ambulatory subject supports the diagnosis of Diabetes Mellitus. ADA recommended reference rangePerformed By: #### BMP, PHOS #### [place] [address] USAPotassium [Moles/Vol]3.9 mmol/LNormal3.5-5.1The [facility] Physician GroupComment on above:Performed By: #### BMP, PHOS #### [place] [address] USASodium [Moles/Vol]135 mmol/WBog473-414Tot [facility] Physician GroupComment on above:Performed By: #### BMP, PHOS #### [facility] [address] [place] [address] USAUrea nitrogen [Mass/Vol]24 mg/dLNormal7-25The [facility] Physician GroupComment on above:Performed By: #### BMP, PHOS #### [facility] [address] [place] [address] USAAnion gap [Moles/Vol]15.7 mmol/LHigh6.0-15.0The [facility] Physician GroupComment on above:Performed By: #### MG, BMP #### [place] [address] USACalcium [Mass/Vol]8.5 mg/dLLow8.6-10.3The [facility] Physician GroupComment on above:Performed By: #### MG, BMP #### [place] [address] USAChloride [Moles/Vol]100 mmol/SBkgybk96-024Lvz [facility] Physician GroupComment on above:Performed By: #### MG, BMP #### [place] [address] USACO2 [Moles/Vol]22.9 mmol/WVxofvb65.0-31.0The [facility] Physician GroupComment on above:Performed By: #### MG, BMP #### [place] [address] USACreatinine [Mass/Vol]5.07 mg/dLSignificant change down 0.70-1.30The [facility] Physician GroupComment on above:Performed By: #### MG, BMP #### [facility] [address] [place] [address] USACreatinine Clr Calc Ivdurlgz41.70NormalThe [facility] Physician GroupComment on above:Result Comment: PERFORMED BY: [place] [address] PATHOLOGIST CAR REPAIRER HELPER VARUN ARGUETA M.D.Performed By: #### MG, BMP #### [place] [address] USAGFR/1.73 sq M.predicted MDRD (S/P/Bld) [Vol rate/Area] 15.082 mL/min/{1.73_m2}NormalThe [facility] Physician GroupComment on above: Performed By: #### MG, BMP #### [place] [address] USAGlucose [Mass/Vol]103 mg/lWWkbf93-782Yca [facility] Physician GroupComment on above:Result Comment: Random Glucose Reference Range is dependent on time and content of last meal. Glucose of more than 200 mg/dL in a nonstressed, ambulatory subject supports the diagnosis of Diabetes Mellitus. ADA recommended reference rangePerformed By: #### MG, BMP #### [place] [address] USAPotassium [Moles/Vol]3.6 mmol/LNormal3.5-5.1The [facility] Physician GroupComment on above:Performed By: #### MG, BMP #### [place] [address] USASodium [Moles/Vol]135 mmol/EAcz165-461Jco [facility] Physician GroupComment on above:Performed By: #### MG, BMP #### [place] [address] USAUrea nitrogen [Mass/Vol]27 mg/dLHigh7-25The [facility] Physician GroupComment on above:Performed By: #### MG, BMP #### [place] [address] USAAnion gap [Moles/Vol]14.5 mmol/LNormal6.0-15.0The [facility] Physician GroupComment on above:Performed By: #### MG, BMP #### [place] [address] USACalcium [Mass/Vol]8.0 mg/dLLow8.6-10.3The [facility] Physician GroupComment on above:Performed By: #### MG, BMP #### [place] [id number] USAChloride [Moles/Vol]100 mmol/UDggffw75-047Zlg [facility] Physician GroupComment on above:Performed By: #### MG, BMP #### [place] [address] USACO2 [Moles/Vol]21.9 mmol/GSfgeed57.0-31.0The [facility] Physician GroupComment on above:Performed By: #### MG, BMP #### [place] [address] USACreatinine [Mass/Vol]5.88 mg/dLHigh0.70-1.30The [facility] Physician GroupComment on above:Performed By: #### MG, BMP #### [place] [address] USAGFR/1.73 sq M.predicted MDRD (S/P/Bld) [Vol rate/Area] 12.624 mL/min/{1.73_m2}NormalThe [facility] Physician GroupComment on above: Performed By: #### MG, BMP #### [place] [address] USAGlucose [Mass/Vol]117 mg/jQZxhc23-423Nfg [facility] Physician GroupComment on above:Result Comment: Random Glucose Reference Range is dependent on time and content of last meal. Glucose of more than 200 mg/dL in a nonstressed, ambulatory subject supports the diagnosis of Diabetes Mellitus. ADA recommended reference rangePerformed By: #### MG, BMP #### [place] [address] USAPotassium [Moles/Vol]3.4 mmol/LLow3.5-5.1The [facility] Physician GroupComment on above:Performed By: #### MG, BMP #### [place] [address] USASodium [Moles/Vol]133 mmol/GAmk752-770Duk [facility] Physician GroupComment on above:Performed By: #### MG, BMP #### [place] [address] USAUrea nitrogen [Mass/Vol]27 mg/dLHigh7-25The [facility] Physician GroupComment on above:Performed By: #### MG, BMP #### [place] [address] USACatecholamines, Ur Free, 24Hron 92-26-6553Fahcwqqo, 24 Hr Xqxjy551Srkmda8-402Ent [facility] Physician GroupComment on above:Order Comment: TOTAL VOLUME = 3625mL List any foods/meds the pt has taken (see Test/Proc Notes):: waterResult Comment: Performed at: [facility] [id number] Learning Technologist: Ata Fletcher MD, Phone: [phone] PERFORMED BY: [place] [address] PATHOLOGIST CAR REPAIRER HELPER VARUN ARGUETA M.D.Performed By: #### CATEC FR24 #### [facility] ,Dopamine, Xizjc70OwmkhuGavbsrtsdKlg [facility]red Hospital PhiladelphiaComment on above: Order Comment: TOTAL VOLUME = 3625mL List any foods/meds the pt has taken (see Test/Proc Notes):: waterResult Comment: This test was developed and its performance characteristics determined by [facility]. It has not been cleared or approved by the Food and Drug Administration.Performed By: #### CATEC FR24 #### [facility] ,Epinephrine, Urine<3NormalUndefinedThe [facility] Physician GroupComment on above:Order Comment: TOTAL VOLUME = 3625mL List any foods/meds the pt has taken (see Test/Proc Notes):: waterResult Comment: This test was developed and its performance characteristics determined by [facility]. It has not been cleared or approved by the Food and Drug Administration.Performed By: #### CATEC FR24 #### [facility] ,Epinephrine, Urine, 24Hr<91Govgmf2-48Khp [facility] Physician GroupComment on above:Order Comment: TOTAL VOLUME = 3625mL List any foods/meds the pt has taken (see Test/Proc Notes):: waterPerformed By: #### CATEC FR24 #### [facility] ,Norepinephrine, 24 Hr Ljkpu26Saapem7-133Zwb [facility] Physician GroupComment on above:Order Comment: TOTAL VOLUME = 3625mL List any foods/meds the pt has taken (see Test/Proc Notes):: waterPerformed By: #### CATEC FR24 #### [facility] ,Norepinephrine, Wkxem12YutunmKvglfftliCdq [facility] Physician GroupComment on above:Order Comment: TOTAL VOLUME = 3625mL List any foods/meds the pt has taken (see Test/Proc Notes):: waterResult Comment: This test was developed and its performance characteristics determined by [facility]. It has not been cleared or approved by the Food and Drug Administration.Performed By: #### CATEC FR24 #### [facility] ,Complete Blood Count Auto Diffon 50-73-6153Tgpxfskfg (Bld) [#/Vol]0.2 10*3/uL Normal0.0-0.2The [facility] Physician GroupComment on above:Result Comment: PERFORMED BY: [place] [address] PATHOLOGIST CAR REPAIRER HELPER VARUN ARGUETA M.D.Performed By: #### MG, BMP #### [place] [address] USABasophils/100 WBC (Bld)1.4 %Normal.The [facility] Physician GroupComment on above:Performed By: #### MG, BMP #### [place] [address] USAEosinophils (Bld) [#/Vol]0.2 10*3/uLNormal0.0-0.45The [facility] Physician GroupComment on above:Performed By: #### MG, BMP #### [place] [address] USAEosinophils/100 WBC (Bld)1.4 %Normal.The [facility] Physician GroupComment on above:Performed By: #### MG, BMP #### [place] [address] USAErythrocyte distribution width (RBC) [Ratio]14.6 %Normal 12.0-14.8The [facility] Physician GroupComment on above:Performed By: #### MG, BMP #### [place] [address] USAHematocrit (Bld) [Volume fraction]52.3 %High38.8-50.0The [facility] Physician GroupComment on above:Performed By: #### MG, BMP #### [place] [address] USAHemoglobin (Bld) [Mass/Vol]18.0 g/yVZbfp54.0-17.0The [facility] Physician GroupComment on above:Performed By: #### MG, BMP #### [place] [address] USALymphocytes (Bld) [#/Vol]2.9 10*3/uLNormal1.00-4.8The [facility] Physician GroupComment on above:Performed By: #### MG, BMP #### [place] [address] USALymphocytes/100 WBC (Bld)20.4 %Normal.The [facility] Physician GroupComment on above:Performed By: #### MG, BMP #### [place] [address] USAMCH (RBC) [Entitic mass]32.2 xlJuzqnb83.5-35.2The [facility] Physician GroupComment on above:Performed By: #### MG, BMP #### [place] [address] USAMCV (RBC) [Entitic vol]93.4 ySAsapwz79.5-101The [facility] Physician GroupComment on above:Performed By: #### MG, BMP #### [place] [address] USAMean Corpuscular HGB Conc34.5 g/hRTvinmx19.5-35.6The [facility] Physician GroupComment on above:Performed By: #### MG, BMP #### [facility] [address] [place] [address] USAMonocytes (Bld) [#/Vol]1.6 10*3/uLHigh0.0-0.8The [facility] Physician GroupComment on above:Performed By: #### MG, BMP #### [facility] [address] [place] [address] USAMonocytes/100 WBC (Bld)11.2 %Normal.The [facility] Physician GroupComment on above:Performed By: #### MG, BMP #### [facility] [address] [place] [address] USANeutrophils (Bld) [#/Vol]9.3 10*3/uLHigh1.8-7.7The [facility] Physician GroupComment on above:Performed By: #### MG, BMP #### [facility] [address] [place] [address] USANeutrophils/100 WBC (Bld)65.6 %Normal.The [facility] Physician GroupComment on above:Performed By: #### MG, BMP #### [facility] [address] [place] [address] USANRBC%0.2 /100{WBC}Normal0-0.5The [facility] Comment on above:Performed By: #### MG, BMP #### [facility] [address] [place] [address] USAPlatelet mean volume (Bld) [Entitic vol]9.8 fLNormal 6.6-10.1The [facility] Physician GroupComment on above:Performed By: #### MG, BMP #### [facility] [address] [place] [address] USAPlatelets (Bld) [#/Vol]159 10*3/uBQmwspj610-065Uub [facility] Physician GroupComment on above:Performed By: #### MG, BMP #### [facility] [address] [place] [address] USARBC (Bld) [#/Vol]5.60 10*6/uLNormal3.90-5.60The [facility] Physician GroupComment on above:Performed By: #### MG, BMP #### [place] [address] USAWBC (Bld) [#/Vol]14.3 10*3/uLHigh4.1-10.5The [facility] Physician GroupComment on above:Performed By: #### MG, BMP #### [facility] [address] [place] [address] USAWhite Blood Count14.3 [CFU]/mLHigh4.1-10.5The [facility] Physician GroupComment on above:Performed By: #### MG, BMP #### [place] [address] USADipstick and Microscopicon 59-49-6115Alfhxlzlwk (U)Clear NormalClearThSt. Luke's [facility]idian [facility] Center Physician GroupComment on above:Order Comment: Name Collection Type:: Clean-Voided MidstreamPerformed By: #### MG, BMP #### [place] [address] USABacteria,UrineRareNormalNone SeenNch Healthcare System [facility] Naples Physician GroupComment on above:Order Comment: Name Collection Type:: Clean-Voided MidstreamPerformed By: #### MG, BMP #### [place] [address] USABilirubin,UrineNegativeNormalNegativeNch Healthcare [facility] Physician GroupComment on above:Order Comment: Name Collection Type:: Clean- Voided MidstreamPerformed By: #### MG, BMP #### [place] [address] USAColor (U)Light-YellowNormalYellowNch Healthcare System - [facility] Physician GroupComment on above:Order Comment: Name Collection Type:: Clean-Voided MidstreamPerformed By: #### MG, BMP #### [place] [address] USAGlucose Ql (U)300 mg/dLNormalNormalThSt. Luke's [facility] Physician GroupComment on above:Order Comment: Name Collection Type:: Clean-Voided MidstreamPerformed By: #### MG, BMP #### [place] [address] USAHyaline Casts,UrineNoneNormal0-8The [facility] Physician GroupComment on above:Order Comment: Name Collection Type:: Clean-Voided MidstreamPerformed By: #### MG, BMP #### [facility] [address] [place] [address] USAKetones Ql (U)NegativeNormalNegativeThe [facility] Physician GroupComment on above:Order Comment: Name Collection Type:: Clean- Voided MidstreamPerformed By: #### MG, BMP #### [place] [address] USALeukocyte esterase Test strip Ql (U)NegativeNormalNegative The [facility] Physician GroupComment on above:Order Comment: Name Collection Type:: Clean-Voided MidstreamPerformed By: #### MG, BMP #### [place] [address] USAMucus,UrineRareNormalThe [facility] Physician GroupComment on above:Order Comment: Name Collection Type:: Clean-Voided MidstreamResult Comment: PERFORMED BY: [place] [address] PATHOLOGIST CAR REPAIRER HELPER VARUN ARGUETA M.D.Performed By: #### MG, BMP #### [place] [address] USANitrite,UrineNegativeNormalNegativeThe [facility] Physician GroupComment on above:Order Comment: Name Collection Type:: Clean-Voided MidstreamPerformed By: #### MG, BMP #### [place] [address] USAOccult Blood,Urine2+NormalNegativeThe [facility] Physician GroupComment on above:Order Comment: Name Collection Type:: Clean-Voided MidstreamResult Comment: PERFORMED BY: [place] [address] PATHOLOGIST CAR REPAIRER HELPER VARUN ARGUETA M.D.Performed By: #### MG, BMP #### [place] [address] USApH (U)5.5 [pH]Normal5.0-9.0The [facility] Comment on above:Order Comment: Name Collection Type:: Clean-Voided Midstream Performed By: #### MG, BMP #### [place] [address] USAProtein,UrineTraceNormalNegativeThe [facility] Physician GroupComment on above:Order Comment: Name Collection Type:: Clean-Voided MidstreamPerformed By: #### MG, BMP #### [place] [address] USARBC,Wvxtc5-4Ghascr7-3Acq [facility] Physician GroupComment on above:Order Comment: Name Collection Type:: Clean-Voided MidstreamPerformed By: #### MG, BMP #### [place] [address] USASpecificy Bedford,Urine1.160Rijown9.001-1.030The [facility] Physician GroupComment on above:Order Comment: Name Collection Type:: Clean- Voided MidstreamPerformed By: #### MG, BMP #### [place] [address] USASquamous Epithelial Cell,Aljgg5-9Akrtxe8-4Lan [facility] Physician GroupComment on above:Order Comment: Name Collection Type:: Clean- Voided MidstreamPerformed By: #### MG, BMP #### [place] [address] USAUrobilinogen,UrineNormalNormalNormalThe [facility] Physician GroupComment on above:Order Comment: Name Collection Type:: Clean- Voided MidstreamPerformed By: #### MG, BMP #### [place] [address] USAWBC,Yklle7-9Tavhwa2-8Qwu [facility] Physician GroupComment on above:Order Comment: Name Collection Type:: Clean-Voided MidstreamPerformed By: #### MG, BMP #### [place] [address] USADrug Screen,Urineon 39-67-5105Xqdcbevswvx Screen,Urine NegativeNormalNegativeThe [facility] Physician GroupComment on above:Performed By: #### MG, BMP #### [place] [address] USABarbiturate Screen,UrineNegativeNormalNegativeNch [facility] Physician GroupComment on above:Performed By: #### MG, BMP #### [place] [address] USABenzodiazepines Screen,UrineNegativeNormalNegativeNch [facility] Physician GroupComment on above:Performed By: #### MG, BMP #### [place] [address] USACannabinoid Screen,UrinePositiveNormalNegativeThe [facility] Physician GroupComment on above:Result Comment: These are unconfirmed results and should not be used for legal purposes. Drug Cut-Off Concentration: AMPH 1000 ng/mL JOSE LUIS 200 ng/mL CANDIDO 200 ng/mL COCM 300 ng/mL OP 300 ng/mL PCP 25 ng/mL THC 20 ng/mL PERFORMED BY: [place] [address] PATHOLOGIST CAR REPAIRER HELPER VARUN ARGUETA M.D.Performed By: #### MG, BMP #### [place] [address] USACocaine Screen,UrineNegativeNormalNegativeNch [facility] Physician GroupComment on above:Performed By: #### MG, BMP #### [place] [address] USAOpiate Screen,UrineNegativeNormalNegativeNch [facility] Physician GroupComment on above:Performed By: #### MG, BMP #### [place] [address] USAPhencyclidine Screen,UrineNegativeNormalNegativeNch [facility] Physician GroupComment on above:Performed By: #### MG, BMP #### [place] [address] USAMagnesiumon 69-96-3598Ghjgyljql [Mass/Vol]2.3 mg/dLNormal 1.9-2.7The [facility] Physician GroupComment on above:Result Comment: PERFORMED BY: [place] [address] PATHOLOGIST CAR REPAIRER HELPER VARUN ARGUETA M.D.Performed By: #### MG, BMP #### [place] [address] USAPhosphoruson 17-33-0638Kltumoyxy [Mass/Vol]2.1 mg/dLLow 2.5-4.5The [facility] Physician GroupComment on above:Result Comment: PERFORMED BY: [place] [address] PATHOLOGIST CAR REPAIRER HELPER VARUN ARGUETA M.D.Performed By: #### BMP, PHOS #### [place] [address] USAProtein Creat Ratio Ur Randomon 78-57-2096Vsfjzjsemv, Urine (Random)87.00 mg/dLNormalThe [facility] Physician [facility] CenterComment on above: Result Comment: No reference range establishedPerformed By: #### MG, BMP #### [place] [address] USAProtein (U) [Mass/Vol]39 mg/dLHigh0-9The [facility] Physician GroupComment on above:Performed By: #### MG, BMP #### [place] [address] USAUrine Protein/Creatinine Kalrt698 mg/g{Cre}High0-200The [facility] Physician GroupComment on above:Result Comment: PERFORMED BY: [place] [address] PATHOLOGIST CAR REPAIRER HELPER VARUN ARGUETA M.D.Performed By: #### MG, BMP #### [place] [address] USAUS renal BIon 42-85-1767VE renal [facility] [place] [address] [place], [place] [id number] Ultrasound Report Signed Patient: Tu Casiano I MR#: [id number] : 1995 Acct:[id number] Age/Sex: 29 / M ADM Date: 10/23/24 Loc: Room: [address] [place] [address] Type: DIS IN Attending Dr: Poli Florentino MD Ordering Provider: Caitlin Gambino APRN Date of Service: 10/23/24 US/US renal BI: r/o obstruction Copies to: MD Caitlin Becker, INFORMATION SERVICES ASSISTANT BILATERAL RENAL AND BLADDER ULTRASOUND CLINICAL HISTORY: [...] Savage M.D. 10/23/2024 9:51 AM Dictation Location: [place] [address] Tech: Alka Trujillo Transcribed By: ADELITA 10/23/24 0951 Dictated By: Zach Savage MD 10/23/24 0949 Signed By: 10/23/24 0951NormAdventHealth Celebration Physician GroupUric Acidon 48-58-9804Oqevl [Mass/Vol]11.3 mg/dLHigh4.4-7.6The [facility] Physician [facility] Medical CenterComment on above: Result Comment: PERFORMED BY: [place] [address] PATHOLOGIST CAR REPAIRER HELPER VARUN ARGUETA M.D.Performed By: #### MG, BMP #### [place] [address] USABasophils/100 WBC Manual cnt (Bld)Ordered By: Nicci Severino on 54-61-6697Vtgrkwzyq/100 WBC (Bld)0.0 %Low0.2-2.0The [facility] HospitalEosinophils/100 WBC Manual cnt (Bld)Ordered By: Nicci Severino on 10-22-2024 Eosinophils/100 WBC (Bld)1.0 %0.9-7.0[facility] Erythrocyte distribution width Auto (RBC) [Ratio]Ordered By: Allison Leo on 62-58-5779Bdvballjerl distribution width (RBC) [Ratio]13.4 %11.0-15.0 The Jewish HospitalEstimated glomerular filtration rate (GFR) non- AmericanOrdered By: Nicci Severino on 15-67-7346ZRH/1.73 sq M.predicted among non-blacks MDRD (S/P/Bld) [Vol rate/Area]8 mL/min/{1.73_m2}Low>=60 mL/min/1.73m 2FKettering Health Main CampusGlobulin Calc (S) [Mass/Vol]Ordered By: Nicci Severino on 11-48-2957Usychllr (S) [Mass/Vol]4.1 g/dLThe Jewish HospitalHematocrit Auto (Bld) [Volume fraction]Ordered By: Allison Leo on 10-66-9784Tzqrqwojbt (Bld) [Volume fraction]55.3 %High42.0-54.0The Jewish HospitalHemoglobin [Mass/volume] in BloodOrdered By: Allison Leo on 88-09-5219Ytwnoqqwbv (Bld) [Mass/Vol]19.9 g/wTQyyg21.0-18.0 [facility] HospitalLaboratory - Chemistry and Chemistry - challengeOrdered By: Nicci Severino on 14-37-1518Numomys [Mass/Vol]3.6 g/dL3.4-5.0 [facility] HospitalALP [Catalytic activity/Vol]112 U/L46-116 [facility] HospitalALT [Catalytic activity/Vol]63 U/L16-63 [facility] HospitalAST [Catalytic activity/Vol]56 U/GPfpm08-69 [facility] HospitalBilirubin [Mass/Vol]0.7 mg/dL0.2-1.0[facility] HospitalCalcium [Mass/Vol]9.4 mg/dL8.5-10.1FKettering Health Main CampusChloride [Moles/Vol]91 mmol/XZuh32-679TfnjjjfelThe Jewish HospitalCK [Catalytic activity/Vol]89 U/W37-789CunuforkzThe Jewish Hospital CK.MB [Mass/Vol]1.84 ng/mL<=3.60[facility] HospitalCO2 [Moles/Vol] 24.3 mmol/L21.0-32.0[facility] HospitalCreatinine [Mass/Vol]7.73 mg/dLCritically high0.70-1.30The [facility] HospitalComment on above: RESULTS CALLED TO ER Joaquin Jack, DO @BY Maurice Marie, MLTat 2116GFR/1.73 sq M.predicted MDRD (S/P/Bld) [Vol rate/Area]10 mL/min/{1.73_m2}Low>=60 mL/min/1.73m 2FKettering Health Main CampusGlucose [Mass/Vol]138 mg/dLHigh 74-106The [facility] HospitalLactate [Moles/Vol]1.7 mmol/L0.4-2.0 [facility] HospitalPotassium [Moles/Vol]3.3 mmol/LLow3.5-5.1 [facility] HospitalProtein [Mass/Vol]7.7 g/dL6.4-8.2FProMedica Fostoria Community Hospitalodium [Moles/Vol]131 mmol/QOjz900-435HkqauguxbThe Jewish HospitalUrea nitrogen [Mass/Vol]31.0 mg/dLHigh7.0-18.0The [facility] HospitalUrea nitrogen/Creatinine [Mass ratio]4.0 mg/mgThe Jewish HospitalLaboratory - Hematology and Cell countsOrdered By: Nicci Severino on 95-08-8422Uzaklbbplsg/100 WBC (Bld)19.0 %Low20.5-60.0[facility] HospitalMonocytes/100 WBC (Bld)14.0 %High1.7-12.0[facility] Leukocytes [#/volume] corrected for nucleated erythrocytes in Blood by Automated counOrdered By: Allison Leo on 22-96-8533SSY corrected for nucl RBC Auto (Bld) [#/Vol]18.8 10 3/uLHigh4.0-11.0[facility] Auto (RBC) [Entitic mass]Ordered By: Allison Leo on 31-65-3671DQR (RBC) [Entitic mass]32.4 pg25.9-34.0[facility] HospitalHC Auto (RBC) [Mass/Vol]Ordered By: Allison Leo on 68-13-3023VNCQ (RBC) [Mass/Vol]36.0 g/nBTxqe70.9-35.2FKettering Health Main CampusMCV Auto (RBC) [Entitic vol] Ordered By: Allison Leo on 54-14-8927VPG (RBC) [Entitic vol]89.9 fL 80.0-94.0The [facility] HospitalNo Panel InformationOrdered By: Nicci Severino on 31-18-4498Xszngwro Basophils (Manual)0.00 10 3/uL0.00-0.10The [facility] HospitalEosinophils # (Manual)0.18 10 3/uL0.00-0.70The [facility] HospitalLymphocytes # (Manual)3.57 10 3/uL1.20-3.80The [facility] HospitalMonocytes # (Manual)2.63 10 3/uLHigh0.30-0.80[facility] Hospitalegmented Neutrophils # (Manual)12.40 10 3/uLHigh1.4-6.5 [facility] HospitalTroponin I High Rqmodbtjcvm95.0 pg/mL4.0-76.1 The [facility] HospitalComment on above:CUT-OFF POINTS HAVE BEEN ESTABLISHED BASED ON THE FOURTHUNIVERSAL DEFINITION OF MYOCARDIAL INFARCTION. THE UPPERREFERENCE LIMIT (URL) OF TROPONIN, DEFINED THE 99THPERCENTILE OF cTnI DISTRIBUTION IN A REFERENCE POPULATION,HAS BEEN CONFIRMED THE DECISION THRESHOLD FOR MIDIAGNOSIS.99TH PERCENTILE = 76.2 PG/MLNOTE: HIGH-SENSITIVITY TROPONIN ASSAY IS NOT INTENDED TO BEUSED IN ISOLATION BUT SHOULD BE INTERPRETED IN CONJUNCTIONWITH OTHER DIAGNOSTIC AND CLINICAL INFORMATION.Platelet mean volume Auto (Bld) [Entitic vol]Ordered By: Allison Leo on 10-22-2024 Platelet mean volume (Bld) [Entitic vol]11.4 fL9.5-13.5FKettering Health Main CampusPlatelets Auto (Bld) [#/Vol]Ordered By: Allison Leo on 57-39-9431Pgmajpbbv (Bld) [#/Vol]211 10 3/yW300-034HxhazctoaThe Jewish HospitalRBC Auto (Bld) [#/Vol]Ordered By: Allison Leo on 88-22-9646ORN (Bld) [#/Vol]6.15 10 6/uLHigh4.70-6.10[facility] Hospitalegmented neutrophils/100 WBC Manual cnt (Bld)Ordered By: Nicci Severino on 10-22-2024 Segmented neutrophils/100 WBC (Bld)66.0 %43.0-75.0[facility] Hospitalerum or plasma albumin/globulin mass ratioOrdered By: Nicci Severino on 40-94-9724Nbhtkcf/Globulin [Mass ratio]0.9 {ratio}[facility] Hospitalerum or plasma anion gap determinationOrdered By: Nicci Severino on 10-22-2024 Anion gap [Moles/Vol]19.0 mmol/LFKettering Health Main CampusTelephone Encounteron 85-47-4645Nmbsixkxhkqzz Authentication Interface Message TextPatient sent a second request for oxycodone in MyChart 07/25/2024.NormalThe MetSensopia SystemAnesthesia Postprocedure Evaluationon 36-55-3381Mfgwvaifcgjfx Authentication Interface Message TextAnesthesia Postoperative Assessment: Vital Signs (most recent): BP [...] acceptable ANESTHESIA NOTABLE EVENTS: No notable events documented.NormalThe MetroSpiral Genetics SystemAnesthesia Preprocedure Evaluationon 35-76-1326Qbooekgmudlzz Authentication Interface Message TextASA: 2 No history of anesthetic complications NPO [...] were discussed with the patient and/or legal loss control representative. The risks, benefits and alternatives were reviewed. Questions regarding anesthesia were answered. Patient and/or legal loss control representative knows such anesthetics and procedures may be performed by Resident physicians, Certified Anesthesiologist Assistants, or Certified Nurse Anesthetists under the supervision of a physician. The patient /or the patient's legal loss control representative agree with the plan for anesthesia. 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 Patient was drowsy, comfortable, [...] (06/09/2024) Procedure: REPAIR, TENDON, EXTENSOR; Surgeon: Cely Strauss MD; Location: PERIOPERATIVE SERVICES; Service: Plastics REDUCTION, OPEN, HAND (06/09/2024) Procedure: REDUCTION, OPEN, HAND; Surgeon: Cely Strauss MD; Location: PERIOPERATIVE SERVICES; Service: Plastics Allergies: Patient has no known allergies. Basic Operating Room Facts: Surgeon(s): Cely Strauss MD Anesthesiologist: Salinas Saldaña MD LICENSING AND REGISTRATION DIRECTOR: Jessica Aguilar APRN-LICENSING AND REGISTRATION DIRECTOR Anesthesia Student: Carolina Tamez REMOVAL, HARDWARE, HAND [...] Port #1 Capped;Patent;Positive blood return 07/23/24 1249 Airway Adjunct: Non-Rebreather [...] understanding of the report was received. 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.119A] * Hand laceration involving tendon, right, subsequent encounter [S61.411D, S66.921D] Postoperative Diagnosis: * Traumatic amputation of finger, initial encounter [S68.119A] * Hand laceration involving tendon, right, subsequent encounter [S61.411D, S66.921D] Procedures: Right small finger hardware removal Surgeon(s): Surgeon(s): Cely Strauss MD Staff: Scrub: Maryam Mao Calculator Operator Nurse: Lidya Williamson RN Fare Collector: Emelina Diego DO; Cristopher Kaur DMD, MD Anesthesia: Consult Anesthesiologist: Salinas Saldaña MD LICENSING AND REGISTRATION DIRECTOR: Jessica Aguilar APRN-CRNA Anesthesia Student: Carolina Tamez [...] be admitted as an inpatient? No Dr. Strauss was present in the OR for the critical portion of the procedure and procedure sign-out. Signed by Emelina Diego DO 07/23/2024 2:21 PMNormalThe Maria Fareri Children'S HospitalSensopia System OP Noteon 11-53-3832Bczhgcbhfbyrq Authentication Interface Message TextOPERATIVE NOTE Plastic Surgery Name: Tu aCsiano CSN: [id number] Surgical Age: [age] year old Date of [...] II Procedural Care Complete Surgeon(s): Primary: Cely Strauss MD Geometry Teacher Surgeon: Scrub: Maryam Mao Calculator Operator Nurse: Lidya Williamson RN Fare Collector: Emelina Diego DO; Cristopher Kaur DMD, MD [...] of surgery: Stable The Attending Surgeon Dr. Strauss was present for all critical parts of the procedure. Emelina Diego, [facility] SystemK[facility] Call Historyon 07-22-2024 Sawmill Equipment Operator Authentication Interface Message TextTelephone History Tu Casiano, [id number] 07/22/2024 Patient was identified by name and [...] completed prior to upcoming procedure with Dr. Strauss on 07/23/24 at [facility] ED Visit (05/30/2024) Partial Note- Hand [...] was transferred here from [facility] for surgical consultation. A/P 28-year-old male with a past medical history listed above who presents to the emergency department as a transfer from [facility] for hand surgery consult. On initial [...] and pain control prior to evaluation at [facility]. Hand surgery was consulted, evaluated the patient [...] as outpatient - Follow up with Dr. Strauss's office for surgery (schedulers messaged) - [facility] for discharge - Dispo: per ED STOP-BANG [...] Hand laceration involving tendon, right, subsequent encounter [Z04.961D, A72.631D] Current smoker [F17.200] Fracture of cervical vertebra (HCC) [S12.9XXA] Gouty arthritis of right ankle [M10.9] Open fracture of middle phalanx of finger [S62.629B] Impaired function of upper extremity [R68.89] Amputation, finger, traumatic [S68.119A] Past Medical History and Review of Systems Pulmonary (+) a smoker (In process of quitting) Comment: Denies SOB, wheezes, fever, chills, inc (more content not included)... NormalThe SmartShoot SystemTelephone Encounteron 96-75-8467Lkgxtzjiqekzq Authentication Interface Message TextPt called to check status of refill request.NormalThe Prism Solar TechnologiesroHealth SystemXR FINGERS RIGHT 3 VIEWSon 53-81-2131GC FINGERS RIGHT 3 VIEWSEXAMINATION: XR FINGERS RIGHT 3 VIEWSPRO/RT/Right Fifth Digit [...] without signs of loosening. Right finger MACRO: NoneNormalThe MetroHealth SystemXR Finger - right Viewson 40-05-1219USLTCBMAMCW: XR FINGERS RIGHT 3 VIEWSPRO/RT/Right Fifth Digit [...] signs of loosening. Right finger MACRO: None Daniel Martinez MD - 07/11/2024 EXAMINATION: XR FINGERS RIGHT [...] signs of loosening. Right finger MACRO: None MetroHealthXR Finger - right ViewsOrdered By: Daniel Rosado on 07-11-2024 [employer]Shoot Work Phone: Progress Noteson 58-20-6367Mpifnsivnxtdl Authentication Interface Message TextPost Operative Visit Date of Surgery: 06/09/2024 Surgery(s) performed: 1. Right middle finger revision amputation at the level of distal portion of the middle phalanx. 2. Fixation of the extensor tendon at 2 different places, in central slip and also zone 5. 3. Open reduction of the PIP dislocation fracture. Surgeon: Christoph Strauss MD Pain (0-10): Pain Score: 7/10 Other [...] and agreement. Charlene Nick PA-C 07/09/24 2:10 PMNormalThe SmartShoot SystemTranscription Authentication Interface Message TextOCCUPATIONAL THERAPY HAND TREATMENT Patient left without being seen. No skilled OT provided. Federico Galeana OTR/L, Eliana SmartShoot SystemXR Finger - right Viewson 87-59-0355Hbfsghdtj Study observation (narrative)SmartShootProgress Noteson 30-69-8915Zbpkjtewiqxwv Authentication Interface Message TextPost Operative Visit Date of Surgery: 06/09/2024 Surgery(s) performed: 1. Right middle finger revision amputation at the level of distal portion of the middle phalanx. 2. Fixation of the extensor tendon at 2 different places, in central slip and also zone 5. 3. Open reduction of the PIP dislocation fracture. Surgeon: Christoph Strauss MD Pain (0-10): Pain Score: 8/10 Other [...] and agreement. Charlene Nick PA-C 06/23/24 12:25 [facility] SystemTranscription Authentication Interface Message TextOCCUPATIONAL THERAPY HAND TREATMENT Visit #: 3 Referred [...] Payor: [employer]ICAL [employer] - HMO/PPO/POS / Plan: Care at Hand PPO/CLASSIC/PLUS / Product Type: RAÚLO Tu Casiano [...] updated medication list. 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 Identification [...] 3 Small NT R MF PIP: 0 25 Sensation: Intact per patient, not formally [...] precautions regarding orthoses. Stat (more content not included)...NormalThe SmartShoot SystemProgress Noteson 61-10-9098Gfgcuttyxgqqp Authentication Interface Message TextPost Operative Visit Date of Surgery: 06/09/2024 Surgery(s) performed: 1. Right middle finger revision amputation at the level of distal portion of the middle phalanx. 2. Fixation of the extensor tendon at 2 different places, in central slip and also zone 5. 3. Open reduction of the PIP dislocation fracture. Surgeon: Christoph Strauss MD Pain (0-10): 10/10 Other Complaints: Patient [...] and agreement. Charlene Nick PA-C 06/15/24 12:15 [facility] SystemTranscription Authentication Interface Message TextOCCUPATIONAL THERAPY HAND TREATMENT Visit #: 2 Referred [...] Payor: MEDICAL MUTUAL - HMO/PPO/POS / Plan: Care at Hand PPO/CLASSIC/PLUS / Product Type: PPO Tu Casiano [...] updated medication list. 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 Identification [...] 2x2, Blaire and coban. Instructed patient and christinaance in dressing changes. Instructed patient in HEP [...] independently. Status: INITIATED Pt (more content not included)...NormalThe Ash[facility] City Medical CenterSpiral Genetics SystemTelephone Encounter on 00-79-7017Fxpheexzjnzql Authentication Interface Message TextSpoke to patient about pain. Pain has been [...] Offered to see him in clinic at [place] location for in person assessment and possible [...] any further questions. Stevie Glasgow, PGY4 Plastic SurgeryCity Hospital SystemTranscription Authentication Interface Message TextComplaint: Returned patient call for complaints of unbearable [...] 15 minutes every 1-2 hours. Surgeon: Cely Strauss MD Informed pt: After speaking with King Ross CNP and Patrick Glasgow, plastic surgery resident about patient complaints, Instructed patient to come to [place] [facility] today to be seen. Pt declined [...] that he is expecting a call from him.[employer] Interface Message TextPlease call pt. His pain is unbearable.[facility] Telephone Encounteron 90-18-3330Tmxkcrdxrvvdr Authentication Interface Message TextSpoke with pt regarding post op pain concerns/ [...] refill will not be permitted. Pt verbalized understanding.[facility]YMUS MEDICALTransHactus Interface Message TextPt calling to request a different pain med. States was not able to sleep due to pain last night. Please call.[facility] MEDICALAnesthesia Postprocedure Evaluationon 08-03-9613Cqvlplcxxytne Authentication Interface Message TextAnesthesia Postoperative Assessment: Vital Signs (most recent): BP [...] acceptable ANESTHESIA NOTABLE EVENTS: No notable events documented.NormalThe Prism Solar TechnologiesDiley Ridge Medical Center SystemAnesthesia Preprocedure Evaluationon 44-00-6521Dvqbvalnqogrg Authentication Interface Message TextASA: 2 No history of anesthetic complications NPO [...] were discussed with the patient and/or legal loss control representative. The risks, benefits and alternatives were reviewed. Questions regarding anesthesia were answered. Patient and/or legal loss control representative knows such anesthetics and procedures may be performed by Resident physicians, Certified Anesthesiologist Assistants, or Certified Nurse Anesthetists under the supervision of a physician. The patient /or the patient's legal loss control representative agree with the plan for anesthesia. [facility]An[facility] Sawmill Equipment Operator Authentication Interface Message TextPatient taken to PACU. Patient was awake, comfortable, [...] allergies. Basic Operating Room Facts: Surgeon(s): Cely Strauss MD Anesthesiologist: Sulaiman Nam MD; Js Gonzalez MD CAA: Augie Guevara CAA LICENSING AND REGISTRATION DIRECTOR: Mary Chan APRN-LAUREN Anesthesia Student: Renetta Maher REPAIR, TENDON, EXTENSOR [...] Port #1 Capped;Patent;Positive blood return 06/09/24 1111 Airway Insertion Details [...] of understanding of the report was received. Bree Francois [facility] Attestationon 06-09-2024 Sawmill Equipment Operator Authentication Interface Message TextBlood Attestation: ATTESTATION OF INFORMED CONSENT FOR BLOOD: The transfusion of blood and/or blood components were discussed with the patient and/or legal loss control representative. The risks, benefits and alternatives were reviewed. Questions regarding blood transfusions were answered. The patient /or the patient's legal loss control representative agree with the plan for transfusion of blood and/or blood components.NormalThe [facility] SystemBraultman hospital Operative Noteon 28-41-1463Pjjizchlkettl Authentication Interface Message TextBrief Op Note Surgical Name: Tu Casiano CSN: [id number] Age: [age] year old Date of : 1995 Preoperative diagnosis(es): Pre-op Diagnosis * Hand laceration involving tendon, right, subsequent encounter [X78.280Q, S15.876C] Postoperative diagnosis(es): Same Procedure(s): REPAIR, TENDON, EXTENSOR REDUCTION, OPEN, HAND Surgeon: Cely Strauss MD Geometry Teacher surgeon: Dr. Matta Anesthesia: General Specimen(s): * [...] end of surgery: Stable Dictated by: Cely Strauss MD: I was present for the critical parts of the procedure. Cely Strauss MD 06/09/2024 3:13 [facility] SystemOP Noteon 65-99-9776Kcmrliiemaezp Authentication Interface Message TextName: TU CASIANO I MR#: [id number] ENC#: [id number] Date of Procedure: 06/09/2024 ATTENDING SURGEON: Christoph Strauss MD CELLULAR PLASTICS CUTTER: Dr. Matta PREOPERATIVE DIAGNOSES: Right hand small [...] Carranza/MedQ/Dict: 06/09/2024 15:21:21 TRANS: 06/09/2024 15:42:55 JOB: [id number] DictJob#: [id number] SmartShoot SystemProgress Noteson 06-09-2024 Sawmill Equipment Operator Authentication Interface Message TextDr. Golden at bedside to explain safety and possible repercussions of pain medication due to patient's high STOPBANG score. Fiance and grandmother at bedside. Patient declined extended stay for monitoring in case of narcotic administration and decided to be discharged. Patient expressed understanding regarding the possible side effects of narcotic administration with a high STOPBANG score. Patient discharged with instructions and home prescriptions. NormalThe SmartShoot SystemUS GUIDANCE NEEDLE PLACEMENTon 97-21-0604GO GUIDANCE NEEDLE PLACEMENTNarrative AND Impression EXAMINATION: US GUIDANCE NEEDLE PLACEMENT CLINICAL HISTORY: peripheral nerve block IMPRESSION: : Technical services were performed by the department of Anesthesia. Please see the Procedure note for interpretation. Please refer to the patient's chart for the results of the procedure and ultrasound.NormalThe Prism Solar TechnologiesroSpiral Genetics SystemUS Guidance for placement of needle in Unspecified body regionon 06-09-2024: Technical services were performed by the department of Anesthesia. Please see the Procedure note for interpretation. Please refer to the patient's chart for the results of the procedure and ultrasound. MetroHealthNarrative & Impression EXAMINATION: US GUIDANCE NEEDLE PLACEMENT CLINICAL HISTORY: peripheral nerve block MetroHealthRadiology Study observation (narrative)MetroHealthUS Guidance for placement of needle in Unspecified body regionOrdered By: Laila Golden on 63-31-9543FqrdtFkoqoe Work Phone: assessment AND Plan Noteon 99-95-8370Kkgsrfevosbzr Authentication Interface Message Text- Dressings removed. - Discussed upcoming surgery, risks, benefits, prognosis, and outcomes. - Dressings placed today: bacitracin, adaptic, gauze, PHU. - OT today for splinting. Maintain splint until surgery. - Pain medication refilled. - Follow up one week post operatively.NormalThe SmartShoot SystemProgress Notes on 11-52-2361Qhgwngsvyfxuv VoicePrism Innovationsation Interface Message TextOpened in error. NormalThe SmartShoot SystemRelativity Media PLation Interface Message Text Chief Complaint: Right hand [...] laceration involving tendon, right, subsequent encounter [S61.411D, S66.571D] Current smoker [F17.200] Fracture of cervical vertebra [...] and agreement. Charlene Nick PA-C 06/02/24 12:06 [facility]ITALormalThe [facility] SystemPAT Call Historyon 95-36-6862Oqrkfjbsuuaot Authentication Interface Message TextTelephone History Tu Johnson, [id number] 06/01/2024 28 year old 255 lbs 6' [...] or procedure with anesthesia scheduled at [facility] ED Visit (05/30/2024) Partial Note- Hand [...] was transferred here from [facility] for surgical consultation. A/P 28-year-old male with a past medical history listed above who presents to the emergency department as a transfer from [facility] for hand surgery consult. On initial [...] and pain control prior to evaluation at [facility]. Hand surgery was consulted, evaluated the patient [...] as outpatient - Follow up with Dr. Strauss's office for surgery (schedulers messaged) - [facility] for discharge - Dispo: per ED STOP-BANG [...] Hand laceration involving tendon, right, subsequent encounter [S61.909D, S66.402E] Current smoker [F17.200] Fracture of cervical vertebra (HCC) [S12.9XXA] Gouty arthritis of right ankle [M10.9] Open fracture of middle phalanx of finger [S61.316B] Past Medical History and Review of Systems Pulmonary (+) no home oxygen, a smoker (attempting to quit down to 1-2 cigs/day) (-) sleep apnea, COPD, asthma, shortness of breath, pneumonia in last 3 months, pulmonary embolism, recent URI, tuberculosis, home oxygen Dental (-) teeth problems, dental plate or appliance and TMJ pain Endo (+) obesity (-) diabetes mellitus, hypothyroidism, hyperthyroidism 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 Neuro/Psych (+) no cerebral palsy, no attention deficit hyperactivity disorder, no intellectual disability (-) CVA, depression, bipolar disorder, anxiety/panic attacks, schizophrenia, ADHD, cerebral palsy, dementia, seizures Comment: Daily drinker - denies any w/d sx' Cardiovascular (+) 4-10 METs, hypertension (Compliant with meds) well controlled (-) exercise intolerance, past AR, CAD, CABG/stent, AAA, arrhythmia, angina, (more content not included)...NormalMotosmarty SystemTelephone Encounteron 61-28-8045Uawiryusomuvj Authentication Interface Message TextSpoke with pt regarding pain regimen. Pt describes [...] POC. Preferred pharmacy for oxycodone refill is [facility] in [facility]. Current rx ends 2/5-pt aware we might not be able to fill until 2/6 based on frequency of rx.NormalSycamore Medical Center SmartShoot SystemTranscription Authentication Interface Message TextPlease call patient in regards to pain medication refill. Pain meds now not working so good. Please call patient TONY they run out of meds by tomorrow. [phone] [facility] SystemAddendum Noteon 84-72-5269Jbhurirchiosh Authentication Interface Message TextAddended by: CHARLENE NICK on: 05/30/2024 12:19 PM Modules accepted: OrdersNoSouthview Medical Center SystemBASIC METABOLIC PANELon 08-09-7657Kyzcg gap [Moles/Vol]18 mmol/UGcwxrj26-19Clj [facility] SystemComment on above:Performed By: #### CH8 #### S PATHOLOGY LABORATORY [address] [place] [address], [phone] [Mass/Vol]9.4 mg/dLNormal8.6-10.3The [facility] SystemComment on above:Performed By: #### CH8 #### S PATHOLOGY LABORATORY [address] [place] [address], [phone] [Moles/Vol]104 mmol/SAypwuf47-925Uqf [facility] SystemComment on above:Performed By: #### CH8 #### S PATHOLOGY LAB[facility]AT[facility] [address] [place] [address], [phone] [Moles/Vol]26 mmol/WStlkxx89-11Bqq [facility] SystemComment on above:Performed By: #### CH8 #### S PATHOLOGY LABORATORY [address] [place] [address], [phone] [Mass/Vol]0.76 mg/dLNormal0.70-1.30The [facility] CenterHealth SystemComment on above:Performed By: #### CH8 #### S PATHOLOGY LABORATORY [address] [place] [address], [phone] GFR (CKD-EPI)127 mL/min/1.73sqmNormal>=60The [facility] Hospital SystemComment on above:Result Comment: 2020 CKD EPI Equation using Creatinine without Race Comment: Estimated glomerular filtration rate (eGFR) is calculated without a race coefficient. Values should be interpreted in the context of the patient's full clinical presentation. Reference: 1. Damion Buck, Darin M, Daily PLUMMER, et al.. A Unifying Approach for GFR Estimation: Recommendations of the NKF-ASN Task Force on Reassessing the Inclusion of Race in Diagnosing Kidney Disease. AmericanJournal of Kidney Diseases 2021;79(2):268-88.e1. 2. N Engl J Med 1 Vol. 385 Issue 19 Pages 1536-3480Performed By: #### CH8 #### S PATHOLOGY LABORATORY [address] [place] [address], [address]Polimgr [Mass/Vol]130 mg/oMWlgq03-795Hqq [facility] HospitalroHealth SystemComment on above:Performed By: #### CH8 #### S PATHOLOGY LABORATORY [address] [place] [address], [address]Pcrklwqng [Moles/Vol]4.1 mmol/LNormal3.5-5.0The [facility] HospitalroHealth SystemComment on above:Performed By: #### CH8 #### [facility] PATHOLOGY LABORATORY [address] [place] [address], [address]Pfhpgv [Moles/Vol]144 mmol/ENsjmso587-820Xgt [facility] HospitalroHealth SystemComment on above:Performed By: #### CH8 #### S PATHOLOGY LABORATORY [address] [place] [address], [phone] nitrogen [Mass/Vol]6 mg/dLLow7-25The [facility] HospitalroHealth SystemComment on above:Performed By: #### CH8 #### S PATHOLOGY LABORATORY [address] [place] [address], [address]Gzsut metabolic 2000 panelon 81-60-2240Dnsik gap [Moles/Vol]18 mmol/L10 - 20MetroHealthCalcium [Mass/Vol]9.4 mg/dL8.6 - 10.3 mg/dLMetroHealthChloride [Moles/Vol]104 mmol/L98 - 107 mmol/LMetroHealthCO2 [Moles/Vol]26 mmol/L21 - 31 mmol/LMetroHealthCreatinine [Mass/Vol]0.76 mg/dL0.70 - 1.30 mg/dLMetroHealthGFR/1.73 sq M.predicted CKD-EPI (S/P/Bld) [Vol rate/Area]127- PINFMetroHealthComment on above:2020 CKD EPI Equation using Creatinine without Race [...] Inclusion of Race in Diagnosing Kidney Disease. AmericanJournal of Kidney Diseases 2021;79(2):268-88.e1. 2. N Engl J Med 2020 Vol. 385 Issue 19 Pages 5462-5484 Glucose [Mass/Vol]130 mg/mCNfpa60 - 109 mg/dLMetroHealthInterpretation and review of laboratory resultsAbnormalMetroHealthPotassium [Moles/Vol]4.1 mmol/L 3.5 - 5.0 mmol/LMetroHealthSodium [Moles/Vol]144 mmol/L136 - 145 mmol/L MetroHealthUrea nitrogen [Mass/Vol]6 mg/dLLow7 - 25 mg/dLMetroHealthMetroHealth CBC WITH DIFFERENTIALon 35-63-8656Qaemcfnqi (Bld) [#/Vol]0.1 10*3/uL0.00 - 0.20 K/uLMetroHealthBasophils/100 WBC (Bld)0.9 %NINF - 1.9 %MetroHealthEosinophils (Bld) [#/Vol]0.06 10*3/uL0.00 - 0.70 K/uLMetroHealthEosinophils/100 WBC (Bld)0.5 %0.1 - 4.0 %MetroHealthErythrocyte distribution width (RBC) [Ratio]13.1 %11.5 - 14.5 %MetroHealthHematocrit (Bld) [Volume fraction]50.4 %41.0 - 53.0 % MetroHealthHemoglobin (Bld) [Mass/Vol]17.4 g/sEDnxp43.9 - 16.3 g/dLMetroHealth Interpretation and review of laboratory resultsAbnormalMetroHealthLymphocytes (Bld) [#/Vol]3.64 10*3/uL1.00 - 4.80 K/uLMetroHealthLymphocytes/100 WBC (Bld) 33.3 %24.0 - 44.0 %MetroHealthMCH (RBC) [Entitic mass]33.1 pg26.0 - 34.0 pg MetroHealthMCHC (RBC) [Mass/Vol]34.5 g/dL32.0 - 35.9 g/dLMetroHealthMCV (RBC) [Entitic vol]96 fL80 - 100 fLMetroHealthMonocyte distribution width Auto (Bld) [Entitic vol]20NINF - 20MetroHealthMonocytes (Bld) [#/Vol]0.75 10*3/uL0.20 - 1.00 K/uLMetroHealthMonocytes/100 WBC (Bld)6.9 %2.0 - 11.0 %[facility] Neutrophils (Bld) [#/Vol]6.38 10*3/uL1.50 - 8.00 K/uLMetroHealthNeutrophils/100 WBC (Bld)58.4 %31.0 - 76.0 %MetroHealthPlatelet mean volume (Bld) [Entitic vol] 9.4 fL7.5 - 11.2 fLMetroHealthPlatelets (Bld) [#/Vol]200 10*3/uL150 - 400 K/uL MetroHealthRBC (Bld) [#/Vol]5.25 10*6/uLMetroHealthWBC (Bld) [#/Vol]10.9 10*3/uL 4.5 - 11.5 K/uLMetroHealthMetroHealthBasophils (Bld) [#/Vol]0.10 10*3/uLNormal 0.00-0.20The MetroHealth SystemComment on above:Performed By: #### CBCDSAT ####S PATHOLOGY EIDJLYQOKC[address] [place], [place], Basophils/100 WBC (Bld)0.9 %Normal<=1.9The [facility] HospitalroHealth SystemComment on above: Performed By: #### CBCDSAT ####S PATHOLOGY [address]UHN[address] [place], [address]Wmnetpbiszr (Bld) [#/Vol]0.06 10*3/uLNormal 0.00-0.70The [facility] HospitalroHealth SystemComment on above:Performed By: #### CBCDSAT ####[facility] PATHOLOGY [address] [place] [address], Eosinophils/100 WBC (Bld)0.5 %Normal0.1-4.0The [facility] HospitalroHealth SystemComment on above:Performed By: #### CBCANKUSHAT ####[facility] PATHOLOGY [address] [place] [address], [address]Yyzazlramps distribution width (RBC) [Ratio]13.1 % Fszgbs66.5-14.5The [facility] CenterHealth SystemComment on above:Performed By: #### CBCANKUSHAT ####[facility] PATHOLOGY PBKBXMOYBL[address] [place] [address], Hematocrit (Bld) [Volume fraction]50.4 %Yohlhm72.0-53.0The [facility] Hospital[facility] System Comment on above:Performed By: #### CBCANKUSHAT ####[facility] PATHOLOGY EBMKMLELPD[address] [place] [address], [address]Cqhjmljsom (Bld) [Mass/Vol]17.4 g/dL High13.9-16.3The [facility] HospitalroHealth SystemComment on above:Performed By: #### CBCANKUSHAT ####[facility] PATHOLOGY IFRULBYUYP[address] [place] [address], Lymphocytes (Bld) [#/Vol]3.64 10*3/uLNormal1.00-4.80The [facility] System Comment on above:Performed By: #### CBCDSAT ####[facility] PATHOLOGY ZWIAIBBCGW[address] [place] [address], [address]Vfyhzttxexn/100 WBC (Bld)33.3 %Normal 24.0-44.0The [facility] SystemComment on above:Performed By: #### CBCDSAT ####[facility] PATHOLOGY EQBAGJFZBB[address] [place] [address], [address]DNT (RBC) [Entitic mass]33.1 heIivdqj80.0-34.0The [facility] HospitalroHealth SystemComment on above:Performed By: #### CBCDSAT ####[facility] PATHOLOGY QROJDAMLAU5985 [place], [address]APWR (RBC) [Mass/Vol]34.5 g/dBZovsiz41.0-35.9The [facility] Hospital SystemComment on above:Performed By: #### CBCDSAT ####[facility] PATHOLOGY ZGVDQILGYC[address] [place] [address], [address]MRD (RBC) [Entitic vol] 96 pUDduhda78-270Efp [facility] CenterHealth SystemComment on above:Performed By: #### CBCDSAT ####[facility] PATHOLOGY J[address]ZOBSJIA[address] [place] [address], [address]IUNGGEVE DISTRIBUTION VTSOA63Pfakqg<=20The [facility] CenterHealth SystemComment on above:Performed By: #### CBCDSAT ####[facility] PATHOLOGY EOEVBFDFZH[address] [place] [address], [address]Uiueadtor (Bld) [#/Vol]0.75 10*3/uLNormal0.20-1.00 The [facility] SystemComment on above:Performed By: #### CBCDSAT ####[facility] PATHOLOGY HSGNWVHUNS[address] [place] [address], [address]Bsqqoknoh/100 WBC (Bld)6.9 %Normal2.0-11.0The [facility] SystemComment on above:Performed By: #### CBCDSAT ####[facility] PATHOLOGY MFKJDMAPSI[address] [place] [address], [address]Cwkvrjmwgeu (Bld) [#/Vol]6.38 10*3/uLNormal1.50-8.00The [facility] SystemComment on above:Performed By: #### CBCDSAT ####[facility] PATHOLOGY OESRKGDGSN[address] [place] [address], [address]Vwimuaivemm/100 WBC (Bld)58.4 %Kwmwpu74.0-76.0The [facility] SystemComment on above:Performed By: #### CBCDSAT ####[facility] PATHOLOGY XZ[address]WSJTZM[address] [place] [address], [address]Ncslqpsg mean volume (Bld) [Entitic vol]9.4 fLNormal7.5-11.2The [facility] SystemComment on above:Performed By: #### CBCDSAT ####[facility] PATHOLOGY TXRFVKIXKB2574 [place], [address]Bcfplbqum (Bld) [#/Vol] 200 10*3/bONgmtif995-608Zot [facility] SystemComment on above:Performed By: #### CBCDSAT ####S PATHOLOGY NAWWGABVAZ9319 [place], [address]YOA (Bld) [#/Vol]5.25 10*6/uLNormal4.50-5.90[facility] Comment on above:Performed By: #### CBCDSAT ####S PATHOLOGY GFMPDVIQTQ8488 [place], [address]RFV (Bld) [#/Vol]10.9 10*3/uLNormal 4.5-11.5The [facility] Hospital SystemComment on above:Performed By: #### CBCDSAT ####[facility] PATHOLOGY LWHCAPNOFS7955 [place], [place], Consultson [phone] Authentication Interface Message TextPLASTIC SURGERY HAND CONSULT H AND P DOI: [...] where decision was made to transfer to [facility]. The patient reports pain 10/10pm right small [...] as outpatient - Follow up with Dr. Strauss's office for surgery (schedulers messaged) - keflex [...] with good approximation. Xeroform (more content not included)...NormalThe Peoples Hospital SystemED Clinical Summaryon [id number] Clinical SummaryED Clinical Summary [place] [id number] ED Clinical Summary Person Information Name: TU CASIANO I [place] Age: 28 Years : 1995 Sex: Male Language: Omani PCP: NAHOMI CORRALES CNP Marital Status: Single Phone: [phone] Visit Id: Visit Reason: Hand pain-swelling; Finger laceration; Trauma - minor; cut 2 fingers deep Speciality:Acuity: 3 Enc Type: Emergency Med Service: Emergency [...] 05/30/2024 00:10:36 05/30/2024 00:10:36 05/30/2024 00:10:36 ADDRESS: [address] [place] [phone] PHYS DOC NOTES: MEDICAL INFORMATION: Prescriptions Given: [...] of middle phalanx of finger of right handLiberty Hospital Medical CenterED Patient Education Noteon 55-37-5629SE Patient Education NoteED Patient Education NoteLiberty Hospital Medical CenterED Patient Summary on 78-54-0712HD Patient SummaryED Patient Summary [place] [id number] Patient Discharge Instructions Person Information Name: TU CASIANO I Age: 28 Years Arrival Date: 05/29/2024 21:25:29 Discharge Diagnosis: Open displaced fracture of middle phalanx of finger of right hand Primary Care Physician: NAHOMI CORRALES CNP Provider Information Primary Provider: Claudia Sierra DO [employer] Mechanical:None The exam and treatment you received in the Emergency Department were for an urgent problem and are not intended as complete care. It is important that you follow up with a doctor, nurse practitioner,or physician???s patient care assistant for ongoing care. If your symptoms become worse or you do not improve asexpected and you are unable to reach your [...] opioids can be used to help relieve pqqrmikx-sd-kibetb pain and are often prescribed following a [...] guidance from the Food and Drug Administration (www.fda.gov/Drugs/ResourcesForYou). ??? Visit www.cdc.gov/drugoverdose to learn about the risks of opioids abuse and overdose. ??? If you believe you may be struggling with addiction, tell your health director of primary care and askfor guidance or call [facility]???S [employer] Helpline at 0-800-910-HELP. v Source: Department of Health and [facility] (more content not included)...Normal [facility] CenterED Provider Noteson 46-28-6052Xkohxzdijxytb Authentication Interface Message TextEMERIG GuitarsCY DEPARTMENT - VISIT NOTE HISTORY OF PRESENT ILLNESS Chief Complaint Patient presents with Hand/finger symptoms Hand injury from a table saw, sent from [place] State Inspector: not needed - patient preferred language is Omani. The history is provided by the Patient. [...] was transferred here from [facility] for surgical consultation. On chart review, [...] as a transfer from [facility] for hand surgery consult. On initial [...] and pain control prior to evaluation at [facility]. Hand surgery was consulted, evaluated the patient [...] Comment Traumatic amputation of finger, initial encounter [Y73.119L] Laceration of finger of right hand without [...] return precautions and importanc (more content not included)...Normal The [facility] SystemNo Panel Informationon 72-05-8833Xyiefvmmheirfk and review of laboratory resultsNormalMetroHealthMetroHealthPARTIAL THROMBOPLASTIN TIMEon 43-20-6446hRXB Coag (Bld) [Time]30 sMetroHealthaPTT Coag (Bld) [Time]30 sNormal 25-37The [facility] Hospital SystemComment on above:Performed By: #### APTT, PT ####[facility] PATHOLOGY UTTLUSDYQG[address] [place], [address]RAKWCXNLCXP TIME AND INRon 77-69-1852MZK Coag (PPP) [Relative time]1.04 {INR}0.90 - 1.10 MetroHealthPT Coag (PPP) [Time]11.6 sMetroHealthINR Coag (PPP) [Relative time] 1.04 {INR}Normal0.90-1.10The [facility] Hospital SystemComment on above:Performed By: #### APTT, PT ####[facility] PATHOLOGY KIXVSSBUEE2854 [place], [address]DQ Coag (PPP) [Time]11.6 sNormal9.7-12.9The [facility] Hospital SystemComment on above:Performed By: #### APTT, PT ####[facility] PATHOLOGY MKWAWFSHIX2954 [place], [address]JKNM AND SCREENon 25-32-7309HTJ and Rh group Nom (Bld)Blood group O Rh(D) positiveMetroHealthABO and Rh group Nom (Bld)No Previous ResultsMetroHealthBlood group antibody screen QlNegative MetroHealthMetroHealthABO and Rh group Nom (Bld)Blood group O Rh(D) positive NormalThe MetroHealth SystemComment on above:Performed By: #### TS #### S PATHOLOGY LABORATORY [address] [place], [address]PDK and Rh group Nom (Bld)No Previous ResultsNormalThe MetroHealth SystemComment on above:Performed By: #### TS #### S PATHOLOGY LABORATORY [address] [place], [address]UARP INTNegativeNormalThe MetroHealth SystemComment on above:Performed By: #### TS #### S PATHOLOGY LABORATORY [address] [place], [address]SO HAND RIGHT 2 VIEWSon 56-58-0698XH HAND RIGHT 2 VIEWS EXAMINATION: XR HAND [...] the images and agree with the resident's interpretation.NormalThe [facility]'S HospitalroReg[facility] SystemXR Hand - right 2 Viewson 05-30-2024 EXAMINATION: XR HAND RIGHT 2 VIEWSPRO/RT 05/30/2024 [...] images and agree with the resident's interpretation. RADIOLOGYGerman Pagan MD - 05/30/2024 EXAMINATION: XR HAND [...] images and agree with the resident's interpretation. MetroHealthRadiology Study observation (narrative)MetroHealthXR Hand - right 2 ViewsOrdered By: German Pagan on 07-86-8469LjodySisnky Work Phone: XR Hand 3+ Views Righton 28-79-5655JS Hand 3+ Views RightExam Date/Time: 05/29/2024 22:08 EST Reason for Exam: Pain, Traumatic Report IMPRESSION: Injury/fracture/lacerations of the third and fifth digit as discussed. EXAMINATION/TECHNIQUE: XR Hand 3+ Views Right HISTORY: Injury of the right hand with saw. Cut the third and fifth digits. COMPARISON: None RESULT: Amputation/laceration of the third digit involving the majority [...] Stevie Oropeza MD Transcribed by: NANDA Technologist: [facility] CenterED Note-Physicianon [id number] Note-PhysicianED Note-Physician Basic Information Time Seen: Claudia Sierra DO 05/29/2024 21:38 Chief Complaint pt was using saw and cut right third and fifth finger. pt needs tdap. bleeding controlled. History of Present Illness Patient is a 28-year-old male hszod-ckro-tbsvdurg presenting to the ED for evaluation of [...] and Complexity of Problems Differential Diagnosis: [] [facility] Data External documents reviewed: [] My [...] on his arrival due to significant laceration. Patienthas complete laceration through the extensor tendon on the fifth digit, with multiple comminuted fractures obtained patient is given 2 g of Ancef tetanus is updated patient is also given morphine andZofran. Digital block is applied using 1% lidocaine without epinephrine to the third and fifth digit. X-ray shows multiple comminuted fractures. Discussed the case with orthopedics Dr. Baxter who recommends transfer for hand surgery. Patient is in agreement. I spoke with trauma surgery Dr. Ramirez was in agreement with plan. Patient is accepted as a trauma transfer to [facility]. Shared decision making: [] Code [...] EST tetanus/diphtheria/pertussis, acel (Tdap), 0.5 mL, Injection, Intramuscular- Immunization, Once, Stop date 05/29/24 21:41:00 EST, STAT, Start date 05/29/24 21:41:00 EST Transfer Patient XR Hand 3+ Views Right Medications Administered Given morphine 4 mg/mL Inj, 4 mg, IV Push Sodium Chloride 0.9% intravenous solution 50 mL + cefazolin additive 2 gm, IV Piggyback tetanus/diphtheria/pertussis, acel (Tdap) 5 units-2.5 units-18.5 mcg/0.5 mL intramuscular suspension, 0.5 mL, Intramuscular-Immunization Zofran 4 mg/2 mL Injection, 4 mg, IV Push diphtheria/pertussis, acel/tetanus adult, Intramuscular-Immunization Disposition Plan Patient Discharge Condition Fair Discharge Disposition Transfer to [facility] Discharge Prescription List Prescriptions No [...] Alcohol use i (more content not included)... [facility] HospitalComment on above:Result Comment: Electronically Signed By: Claudia Sierra DO\.br\Date and Time Signed: 05/29/24 22:33 EST Registrationon [id number] [id number] Clinic Luther[facility] Hospital Vital Signs Date TimeVital SignValuePerforming NbrqptouoTcfxpobf23-94-5731 10:12040Body grygjj555.88 cmAllison Leo APRN Work Phone: [facility]10-23-2025 10:12040 Body mass index (BMI) [Ratio]33.2 kg/f8OkqhgwyiAllison Leo INFORMATION SERVICES ASSISTANT Work Phone: [facility]10-23-2025 10:12040 Body qhluvl270.13 kgAllison Leo INFORMATION SERVICES ASSISTANT Work Phone: [facility]10-08-2025 13:02040 Body vlryna052.88 cmJennifer Rohrbacher INFORMATION SERVICES ASSISTANT Work Phone: [phone]10-08-2025 13:02-0400 Body mass index (BMI) [Ratio]33.2 kg/v0Sydpvfrq Lindsayacher INFORMATION SERVICES ASSISTANT Work Phone: [phone] [place], [place] 6231310-08-2025 13:02-0400 Body tkqwxglapez71.3 [degF]Allison Ahmet INFORMATION SERVICES ASSISTANT Work Phone: [phone] [place], [place] 6231310-08-2025 13:02-0400 Body .13 kgAlliosn Lópezleathalincolnr INFORMATION SERVICES ASSISTANT Work Phone: [phone] [place], [place] 6231310-08-2025 13:02-0400 Diastolic blood mm[Hg]Allison Ahmet INFORMATION SERVICES ASSISTANT Work Phone: [phone] [place], [place] 6231310-08-2025 13:02-0400 Heart rate95 /Romemanjula Montoyaacher INFORMATION SERVICES ASSISTANT Work Phone: [phone] [place], [place] 6231310-08-2025 13:02-0400 SaO2% (BldA) [Mass fraction]95 %Allison Ahmet INFORMATION SERVICES ASSISTANT Work Phone: [phone] [place], [place] 6231310-08-2025 13:02-0400 Systolic blood mm[Hg]Allison Ahmet INFORMATION SERVICES ASSISTANT Work Phone: [phone] [place], [place] 6231306-30-2025 14:58-0400 Body .88 cmAllison Ahmet INFORMATION SERVICES ASSISTANT Work Phone: [phone] [place], [place] 6231306-30-2025 12:06-0400 Diastolic blood umergvgp18 mm[Hg]Allison Ahmet INFORMATION SERVICES ASSISTANT Work Phone: [phone] [place], [place] 6231306-30-2025 12:06-0400 Heart rate72 /minAllison Lópezrbacher INFORMATION SERVICES ASSISTANT Work Phone: [phone] [place], [place] 6231306-30-2025 12:06-0400 Respiratory rate16 /Abi Leo INFORMATION SERVICES ASSISTANT Work Phone: [facility]06-30-2025 12:06-0400 SaO2% (BldA) [Mass fraction]95 %Allison Leo INFORMATION SERVICES ASSISTANT Work Phone: [facility]06-30-2025 12:06-0400 Systolic blood xlmdpgyl075 mm[Hg]Allison Leo INFORMATION SERVICES ASSISTANT Work Phone: [phone]06-30-2025 08:00-0400 Body ncxkjwittxh76.9 [degF]Allison Leo INFORMATION SERVICES ASSISTANT Work Phone: [phone]55[facility]06-30-2025 06:00-0400 Body dpxsho257 kgAllison Leo INFORMATION SERVICES ASSISTANT Work Phone: [phone]06-10-2025 10:14-0400 Body rlsiyb304.88 cmThe [facility]06-10-2025 10:14-0400Body mass index (BMI) [Ratio]34 kg/c5LyfqxheceThe [facility]06-10-2025 10:14-0400Body lwlfsorbhlc81.3 [degF][facility]06-10-2025 10:14-0400Body fnfbdy315.62 kgThe [facility]06-10-2025 10:14-0400Diastolic blood qgexnvyq70 mm[Hg][facility] 10-05-2024 10:14-0400Heart rate90 /minThe [facility] 10-05-2024 10:14-6634EgV6% (BldA) [Mass fraction]95 %[facility]06-10-2025 10:14-0400Systolic blood ksdarzfs830 mm[Hg][facility]05-12-2025 09:44-0400Body opihjo762.88 cmThe [facility]05-12-2025 09:44-0400Body mass index (BMI) [Ratio]34.5 kg/m2 [facility]05-12-2025 09:44-0400Body yicbslnoozh56.3 [degF][facility]05-12-2025 09:44-0400Body .66 kg [facility]05-12-2025 09:44-0400Diastolic blood mm[Hg][facility]05-12-2025 09:44-0400Heart rate87 /min [facility]05-12-2025 09:44-8924NpS8% (BldA) [Mass fraction]94 %[facility]05-12-2025 09:44-0400Systolic blood sygmcxex394 mm[Hg][facility]03-28-2025 15:00-0400 Diastolic blood abycmrvp78 mm[Hg]Cely Strauss MD Work Phone: [phone]oKvyjia89-36-3264 15:00-0400Heart rate58 /minCely Strauss MD Work Phone: [phone]pZkpjok76-50-3726 15:00-0400Respiratory rate11 /minCely Strauss MD Work Phone: [phone]qZuniwc71-86-0310 15:00-4730SuS2% (BldA) [Mass fraction]95 %Cely Strauss MD Work Phone: [phone]cUwvwbp01-84-1595 15:00-0400Systolic blood kzcarpmp134 mm[Hg]Cely Strauss MD Work Phone: [phone]pZrqwzt77-60-2537 14:25-0400Body .11 [degF]Cely Strauss MD Work Phone: [phone]wUyajnf93-68-0962 12:31-0400Body nizfny672.9 Naheed Strauss MD Work Phone: [phone]lJtrnkm41-28-7000 12:31-0400Body mass index (BMI) [Ratio]33.91 kg/m2Cely Strauss MD Work Phone: [phone]bWbtsof99-48-9207 12:31-0400Body upzglm530.4 kgCely Strauss MD Work Phone: [phone]zJiznhh42-67-7411 17:13-0500Body ehexhqnqeok12.1 [degF]Cely Strauss MD Work Phone: [phone]pTpyifz57-44-0078 17:13-0500Diastolic blood dunchrtu544 mm[Hg]Cely Strauss MD Work Phone: [phone]dJhczxy08-97-6391 17:13-0500Heart rate69 /minCely Strauss MD Work Phone: [phone]oKsqtvw67-56-7127 17:13-0500Respiratory rate20 /minCely Strauss MD Work Phone: [phone]rJcmlfm21-57-1576 17:13-8642QkK2% (BldA) [Mass fraction]93 %Cely Strauss MD Work Phone: [phone]nLhyuzw86-76-6030 17:13-0500Systolic blood gnsvbcae593 mm[Hg]Cely Strauss MD Work Phone: [phone]fWebftr82-73-0056 10:57-0500Body .9 Naheed Strauss MD Work Phone: [phone]lCsengj58-96-2426 10:57-0500Body mass index (BMI) [Ratio]34.58 kg/m2Cely Strauss MD Work Phone: [phone]nQkffdb04-00-7890 10:57-0500Body zwqsyi333.67 kg Cely Strauss MD Work Phone: [phone]bHrfzfz80-80-3430 08:00-0500Body onffik496.9 cm Elma Parra PYQvfteSfmrdw93-44-7091 08:00-0500Body mass index (BMI) [Ratio] 34.58 kg/c2Sqdytyflorecita Parra SOSroqvGhaktp21-13-9164 08:00-0500Body qiwhku709.67 kgShflorecita Jerrylucrecia OHRmivkSqyljo05-08-8721 01:34-0500Body bzoxmuliium31.7 [degF] Leonardo Roberts MD Work Phone: [phone]7523FpbztIerefo07-25-5057 01:34-0500Diastolic blood udipqqax353 mm[Hg]Leonardo Roberts MD Work Phone: QbspdYynmoh91-840332SbhlqTomqvr41-26-2158 01:34-0500Heart jmpy702 /min Leonardo Roberts MD Work Phone: IkbycJiltmn30-897257QlqfhRrfoit78-14-7675 01:34-0500Respiratory rate16 /minLeonardo Roberts MD Work Phone: XavycGnljnq63-715990XdlpjIguopb68-01-1887 01:34-9542XlJ3% (BldA) [Mass fraction]93 %Leonardo Roberts MD Work Phone: ErmphHuzorp40-798525YamnuCfkfup02-94-4595 01:34-0500Systolic blood jcfouccs325 mm[Hg]Leonardo Roberts MD Work Phone: 1(239) 103-8201626-5428BusheAcmovc92-693712YtfyqWzbakh58-75-8801 00:03-0500Diastolic blood qxpriang107 mm[Hg]Chocoinn Dowaleen [address] [place], [place] 2570502-02-2025 00:03-0500Heart wqxz611 /minKaylinn Dokken [address] [place] 2570502-02-2025 00:03-0500Mean blood feipughw091 mm[Hg]Rileyylinn Dokken [address] [place], [place] 2570502-02-2025 00:03-0500 Respiratory rate22 /minKaylinn Dokken [address] [place], [place] 2570502-02-2025 00:03-5312DaQ4% (BldA) [Mass fraction]95 %Rileyylinn Dokken [address] [place], [place] 2570502-02-2025 00:03-0500 Systolic blood kcbgwsqe426 mm[Hg]Rileyylinn Dokken [address] [place], [place] 3804402-01-2025 23:38-0500Body xzrfvrdyztw33.96 [degF]Kaylinn Dokken [address] [place], [place] 3804402-01-2025 23:38-0500 Diastolic blood ewzwadbw242 mm[Hg]Kaylinn Dokken [address] [place], [place] 3804402-01-2025 23:38-0500Heart rate98 /minKaylinn Dokken [address] [place], [place] 3804402-01-2025 23:38-0500Mean blood mm[Hg]Kaylinn Dokken [address] [place], [place] 3804402-01-2025 23:38-0500 Respiratory rate22 /minKaylinn Dokken [address] [place], [place] 3804402-01-2025 23:38-3252QeF1% (BldA) [Mass fraction]95 %Kaylinn Dokken [address] [place], [place] 3804402-01-2025 23:38-0500 Systolic blood dxqfcsah855 mm[Hg]Kaylinn Dokken [address] [place], [place] 3804402-01-2025 23:08-0500 Diastolic blood yppppqcj899 mm[Hg]Kaylinn Dokken [address] [place], [place] 3804402-01-2025 23:08-0500Heart rate93 /minKaylinn Dokken [address] [place], [place] 3804402-01-2025 23:08-0500Mean blood dylxqyul890 mm[Hg]Kaylinn Dokken [address] [place], [place] 3804402-01-2025 23:08-0500 Respiratory rate20 /minKaylinn Dokken [address] [place], [place] 3804402-01-2025 23:08-8880UjN8% (BldA) [Mass fraction]95 %Kaylinn Dokken [facility]02-01-2025 23:08-0500 Systolic blood hwgyyeci605 mm[Hg]Claudia Sierra [facility]02-01-2025 21:58-0500Body mcnabndnpqo51.96 [degF]Claudia Sierra [facility]02-01-2025 21:38-0500Body kugnanbosmt41.96 [degF]Claudia Sierra [facility]02-01-2025 21:38-0500Heart jrbt452 /minClaudia Sierra [facility]12-10-2023 11:05-0500Body .8 cmPamelrush Yu Other [place] [employer] Other 12-10-2023 11:05-0500Body mass index (BMI) [Ratio] 32.48 kg/b0MwbbwjElizabeth Yu Other [facility] [employer] Other 12-10-2023 11:05-0500Body gatsoznsxwo23.7 [degF]Elizabeth Yu Other [facility] [employer] Other 12-10-2023 11:05-0500Body fpevmk839.7 kgElizabeth Yu Other [facility] Other 12-10-2023 11:05-0500Diastolic blood rgokmycc015 mm[Hg]Elizabeth Lowrymond Other [facility] Other 12-10-2023 11:05-0500Respiratory rate18 /minElizabeth Yu Other [place] [employer] Other 12-10-2023 11:05-6888LqF3% (BldA) [Mass fraction]97 % Elizabeth Yu Other [facility] [employer] Other 12-10-2023 11:05-0500Systolic blood uzhbnncs596 mm[Hg] Elizabeth Yu Other [facility] [employer] Other 02-26-2023 00:00-0500Diastolic blood sxsghjar78 mm[Hg] Sd Joi [address] [place], [place] 2570502-26-2023 00:00-0500Heart rate97 /minNoah Joi [address] [place], [place] 2570502-26-2023 00:00-0941OrL2% (BldA) [Mass fraction]97 %Sd Joi [facility]02-26-2023 00:00-0500 Systolic blood egiezrrj987 mm[Hg]Sd Joi [address] [place], [place] 2570502-25-2023 23:00-0500 Diastolic blood iiqpwifg67 mm[Hg]Sd Joi [facility]02-25-2023 23:00-0500Heart rate98 /minNoah Joi [address] [place], [place] 2570502-25-2023 23:00-5811KnW9% (BldA) [Mass fraction]98 %Sd Joi [address] [place], [place] 2570502-25-2023 23:00-0500 Systolic blood eliwolna349 mm[Hg]Sd Joi [address] [place], [place] 2570502-25-2023 21:25-0500Body obcuigpefem67.88 [degF]Sd Joi [facility]02-25-2023 21:25-0500 Diastolic blood dwegftda49 mm[Hg]Sd Joi [facility]02-25-2023 21:25-0500Heart rate99 /minNomukul Joi [facility]02-25-2023 21:25-0500 Respiratory rate16 /minNomukul Joi [facility]02-25-2023 21:25-3721TqN1% (BldA) [Mass fraction]96 %Sd Joi [facility]02-25-2023 21:25-0500 Systolic blood lnfzehtq518 mm[Hg]Sd Burnsner [facility] Encounters Encounter DateEncounter TypeCare ProviderFacilityStart: 02-17-2025 End: 64-15-3428imnevjkqshNewsobqz Rohrbacher INFORMATION SERVICES ASSISTANT Work Phone: [facility] [place]Start: 02-17-2025 End: 30-30-4205Wnrzqhs encounter procedureLuis Fonseca DO-[facility] [place] Work Phone: Start: 02-15-2025 End: 34-56-8036Erlygym encounter procedureLuis Fonseca DO-[facility] [address] [facility] Work Phone: Start: 02-15-2025 End: 58-12-2368hdhygtgtjsVhyvallj Rohrbacher INFORMATION SERVICES ASSISTANT Work Phone: -[facility] [address] ClosedStart: 02-03-2025 End: 26-35-4700qssysrlzngHrlbalvf Rohrbacher INFORMATION SERVICES ASSISTANT Work Phone: [facility] Work Phone: Start: 02-03-2025 End: 01-67-5190Gmwgupj encounter procedureLuis Gloverley DO-[facility] [place] Work Phone: Start: 02-02-2025 End: 32-88-9866wheguzqwzyIfgtrftj Rohrbacher APRN Work Phone: [facility] Work Phone: Start: 02-02-2025 End: 94-89-3623Einbyqj encounter Josephine Leo APRN INSPECTOR SUBASSEMBLY-[facility] Work Phone: Start: 12-66-9180Epx-patient / Non-visitTico De La Cruz MD -[facility] Work Phone: Start: 10-23-2024 End: 02-93-2527Upcmtcxsic and management of inpatientAlcides Hui Facility:[facility]: 24-85-2983Izq-patient / Non-visitAllison Leo APRN INSPECTOR SUBASSEMBLY-[facility] Work Phone: Start: 10-05-2024 End: 36-19-9841nxusbthynsOyaiqnpxvTrumbull Memorial Hospital Work Phone: Start: 10-05-2024 End: 53-92-8920Ykfmyol [facility]Trans[facility] Work Phone: Start: 09-06-2024 End: 12-48-2163tlvppehlptVfkmftsjfTrumbull Memorial Hospital Work Phone: Start: 09-06-2024 End: 41-79-1936Xlwmorn encounter procedureTrans[facility] Work Phone: Start: 08-01-2024 End: 14-50-7317HvdaebIkknzrk Wozniak PA-C Work Phone: [facility] Plastic SurgeryComment on above:RefillStart: 07-23-2024 End: 54-95-3254kihjttdfpkEHBEZTM PROVIDERFacility:METROHealthStart: 07-23-2024 End: 96-13-4958Oolrqnltle hospital visit by Andrew Strauss MD Work Phone: [facility] RadiologyStart: 07-23-2024 End: 53-96-0226rfwfsjxzbxGES TOTONCHIFacility:[facility]PITALHealthComment on above:Refill Start: 07-23-2024 End: 64-07-3380Ytkhafhwps hospital visit by Andrew Strauss MD Work Phone: [facility] Ambulatory SurgeryComment on above:Acute pain due to injuryStart: 89-12-9978hhfxsqugayVJQUFYR PROVIDER [facility]Start: 16-20-3225Ygktshubg for other preprocedural examinationUNKNOWN PROVIDERThe [facility] SystemStart: 07-16-2024 End: 64-95-9118Vjpqriskh to same day surgery Tee Nick PA-C Work Phone: [facility] Plastic SurgeryStart: 07-09-2024 End: 12-40-9308Xgwabcnnpi hospital visit by physicianGladys Op X-Ray 1 Work Phone: [facility] RadiologyComment on above: Traumatic amputation of finger, initial encounter; Hand laceration involving tendon, right, subsequent encounterStart: 07-09-2024 End: 66-92-6361Mwcagwe encounter procedureCharlene Nick PA-C Work Phone: [facility] Plastic SurgeryComment on above:Traumatic amputation of finger, initial encounter (Primary Dx); Hand laceration involving tendon, right, subsequent encounter; Aftercare following surgeryStart: 07-09-2024 End: 06-45-7666hpsbivfomoIKBJMAL PROVIDERFacility:METROHealthStart: 06-26-2024 End: 42-34-5961Ehzdah encounterTyler Bilinovic OTR/L, CHTMetroHealthStart: 06-24-2024 End: 73-12-1331YlisnmRrlwvoz Wozniak PA-C Work Phone: [facility] Plastic SurgeryComment on above:RefillStart: 06-23-2024 End: 87-61-1873icvjtzjyqqRTUORWB PROVIDERFacility:METROHealthStart: 06-23-2024 End: 73-46-6324Vodxsgb encounter procedureCharlene Nick PA-C Work Phone: [facility] Plastic SurgeryComment on above:Traumatic amputation of finger, initial encounter (Primary Dx); Hand laceration involving tendon, right, subsequent encounter; Aftercare following surgeryStart: 70-13-7486gxfcmpfsdaKIPIQVX PROVIDER Facility:[facility]HealthStart: 06-15-2024 End: 58-61-9860bgnynlrkbpUWFCGQY PROVIDERFacility:[facility] HospitalComment on above:OT Treatment; Splint/orthotic IssueStart: 06-15-2024 End: 12-91-8742Btqhpcv encounter procedureCharlene Nick PA-C Work Phone: [facility] Plastic SurgeryComment on above:Traumatic amputation of finger, initial encounter (Primary Dx); Hand laceration involving tendon, right, subsequent encounter; Aftercare following surgeryStart: 06-11-2024 End: 39-06-0200LhrqnvTqdphz Bahat MD Work Phone: [facility] Plastic SurgeryComment on above:Refill Start: 06-10-2024 End: 20-13-7253Mpfkbvzkp Vibha Strauss MD Work Phone: [facility] Plastic SurgeryStart: 06-09-2024 End: 45-02-5465wcsvjyjaybPMQ TOTONCHIFacility:METROHealthStart: 06-09-2024 End: 34-24-9539Nfbjotevka hospital visit by Andrew Strauss MD Work Phone: [facility] RadiologyStart: 06-09-2024 End: 92-74-7057bybhdqeqdgGCC TOTONCHIFacility:METROHealthStart: 06-09-2024 End: 06-94-3081Sspekniwmy hospital visit by Andrew Strauss MD Work Phone: [facility] RadiologyStart: 06-09-2024 End: 71-03-3563tmrpdozrywARI TOTONCHIFacility:METROHealthStart: 06-09-2024 End: 90-15-1160Lzteixiugr hospital visit by Andrew Strauss MD Work Phone: [facility] Main ORComment on above:Open displaced fracture of middle phalanx of left index finger with routine healing, subsequent encounter (Primary Dx); Postoperative painStart: 06-02-2024 End: 30-13-0205Qoqwssl encounter procedureTyler Bilinovic OTR/L, CHTMetroHealth Keene Occupational TherapyComment on above:OT Evaluation (Clinic 1)Start: 06-02-2024 End: 48-41-8534srgvgzkpudIKMWZTI PROVIDERFacility:METROHealthStart: 06-02-2024 End: 76-11-1094Visyac outpatient new 45 Esvin Nick PA-C Work Phone: [facility] Plastic SurgeryComment on above:Hand laceration involving tendon, right, subsequent encounter (Primary Dx); Traumatic amputation of finger, initial encounter; Acute pain due to injuryStart: 06-02-2024 End: 62-89-4327xmjnfozzksUKYXCWC PROVIDERFacility:METROHealthStart: 06-01-2024 End: 67-13-6573Huaevlgoz encounterCely Strauss MD Work Phone: [facility] Plastic SurgeryStart: 06-01-2024 End: 44-33-9633Xgkegys evaluation of patient and reportSravinder Parra RN [facility] Pre-Admission TestingComment on above:Pre-op evaluation (Primary Dx)Start: 06-01-2024 End: 44-27-2277Gegkbzbpjizgh examination doneElma Parra RNMetroHealth Start: 56-63-7325lcejmdsixdOAWUYVP PROVIDERFacility:METROHealthStart: 05-30-2024 End: 77-48-4898Otaliqdpy to same day surgery centerStevie Paiz MD Work Phone: [facility] Plastic SurgeryStart: 11-97-6747Teuttkvcu department patient visitFANNYWStephane PROVIDERFacility:METROHealthStart: 05-30-2024 End: 19-55-1850Vvszcvwnt department patient visitUNKNOWN PROVIDER Facility:METROHealthComment on above:Hand/finger symptoms (Hand injury from a table saw, sent from OSH)Start: 05-29-2024 End: 38-58-1099Tahxuvvzs department patient visitClaudia Ball Dowalesameer [facility] Start: 09-19-2023 End: 54-32-6590hyypmerpzcCxjrjss HARWOODFacility:[facility] WellnessStart: 92-05-3935vemfhcxpcrPmpfxyg HARWOODFacility:[facility] WellnessStart: 04-06-2023 End: 79-89-8205ukyxnxhphdDmfwla Dymond Other [facility] [employer] Other Start: 52-33-1281Yztamr outpatient new 10 minutes Elizabeth YuFPAnupama Urgent Care ClydeStart: 06-24-2022 End: 25-51-0783Npgvnfu encounter procedureNAHOMI CORRALES 732-8467Gbfkck-OfxdoThe [facility] [place] Start: 06-22-2022 End: 11-49-4175Crqujgsas department patient visitKatiemukul VillegasJohana Tamez [facility] Start: 07-29-2016 End: 28-73-3689JlibkfsmbnGBHSXNEJ UNKNOWNFacility:[facility] Procedures DateProcedureProcedure DetailPerforming ClinicianStart: 06-00-4651SNH of right kneeJennifer Socorromarcela ALEC Work Phone: Start: 27-48-1917Zjbjlamckyx up to 1 hour physician/qhp timeCharlene Nick PA-C Work Phone: [phone]: 07-23-2024 End: 35-84-9333Aoixhyh implant Lai Strauss MD Work Phone: [phone]: 33-38-4228Mcknm fingr minimum 2 viewsCharlene Nick PA-C Work Phone: [phone]: 51-20-9295Og guidance needle placement img s&i Chuck Lovell MD Work Phone: [phone]: 43-89-5090Auyxkfldxcc up to 1 hour physician/qhp Matheus Matta MD Work Phone: Start: 06-09-2024 End: 16-23-3714GIXWOBXIL, OPEN, HANDCely Strauss MD Work Phone: [phone]: 06-09-2024 End: 48-37-4141ZVKKNY, TENDON, EXTENSORCely Strauss MD Work Phone: Start: 75-65-4933Piifn hand 2 Omega Zamora MD Work Phone: Start: 64-74-9359Kljck typing, ABO, Rho(D) and RBC antibody screeningLeonardo Roberts MD Work Phone: Start: 39-13-3111Mhfqlahwkvtklg time partial plasma/whole bloodLeonardo Roberts MD Work Phone: Start: 16-76-0095NzhsfbbshluxyFrzx Whitener deniesNo Joi Plan of Treatment DateCare ActivityDetailAuthorStart: 49-27-9404Ssquuktb (RZV) Vaccine (1 of 2) Shingles (RZV) Vaccine (1 of 2)[facility]roHealthStart: 66-19-9086Lotther vaccination Tetanus (Td or Tdap) BoosterMetroHealthStart: 39-70-7655Iyragjfkv vaccination Influenza Vaccine (#1)[facility]HealthStart: 97-97-0442MPZNR-19 Vaccine ( season)COVID-19 Vaccine ( season)[facility]roHealthStart: 63-48-0616ZY guided biopsyMartins Ferry Hospitaltart: 97-15-0962Ahmdy culture [facility]: 10-25-2024 End: 25-60-1906UaqjgbzdgMartins Ferry Hospitaltart: 46-63-3543Htnehqupeheg [facility]: 60-65-0223EardymzavMartins Ferry Hospitaltart: 34-45-0121UynwxmscqMartins Ferry Hospitaltart: 10-23-2024 [facility]: 72-07-9387Jrcuxcvk to technical account manager [facility]: 64-53-7427Zgthbitu admissionMartins Ferry Hospitaltart: 68-01-3358LgpfpmlzmMartins Ferry Hospitaltart: 49-20-8788BAO Vaccine (optional start 27-45 years)HPV Vaccine (optional start 27-45 years)[facility]HealthStart: 08-03-2024 End: 80-20-8312Pzuacnh encounter bnqszlebn05/08/2025 1:45 PM EDT Office Visit [facility] [address] [place] [address] [phone] Charlene Nick PA-C [address] [place] [address] [facility] Plastic SurgeryStart: 31-69-8630SWKGN-19 Vaccine ( season)COVID-19 Vaccine ( season)[facility]HealthStart: 42-46-1906Uiuecdknm A (HAV) Vaccine (optional start 19+ years)Hepatitis A (HAV) Vaccine (optional start 19+ years) [facility]HealthStart: 39-28-5359Bajubttihqfu vaccinationPneumococcal Vaccine(s) (1 of 2 - PCV)[facility]HealthStart: 07-47-0537Hrnwwpvxw C screeningHepatitis C Antibody [facility]HealthStart: 33-58-2768VBX screeningHIV TestMetroHealthStart: 2012 Vaccination for human papillomavirusHPV Vaccine (1 - Male 3-dose series) [facility]HealthStart: 25-89-7033Qxjpeuktu B vaccinationHepatitis B (HBV) Vaccine (3 of 3 - 3-dose series)JadizOtvjwe35 hour urine magnesium output measurement [facility] HospitalAldosterone [Mass/volume] in Serum or Plasma [facility] HospitalAntibody measurementThe Jewish HospitalCefuroxime free [Mass/volume] in Serum or PlasmaThe Jewish HospitalComprehensive metabolic 2000 panel - Serum or PlasmaThe Jewish HospitalCreatinine [Mass/volume] in UrineThe [facility] Hospital Crystals [type] in Body fluid by Light microscopyThe Jewish HospitalDOPamine [Mass/time] in 24 hour UrineThe [facility] DOPamine [Mass/volume] in UrineThe Jewish HospitalEPINEPHrine [Mass/volume] in UrineThe Jewish HospitalHepatitis A virus antibody, IgM [facility] B core antibody measurement, IgM [facility] B virus surface Ag [Presence] in Serum or Plasma by ImmunoassayThe [facility] Hepatitis C virus IgG Ab [Presence] in Serum or Plasma by ImmunoassayThe Jewish HospitalHIV 1+2 Ab+HIV1 p24 Ag [Presence] in Serum or Plasma by ImmunoassayThe Jewish HospitalMetanephrines [Mass/volume] in 24 hour UrineThe Jewish HospitalMetanephrines/Creatinine [Mass Ratio] in UrineThe Jewish HospitalMyeloperoxidase Ab [Units/volume] in Serum by ImmunoassayThe Jewish HospitalNeutrophil cytoplasmic Ab.classic [Titer] in Serum by ImmunofluorescenceThe Jewish HospitalNorepinephrine [Mass/time] in 24 hour UrineThe Jewish HospitalNorepinephrine [Mass/volume] in UrineThe [facility] Normetanephrine [Mass/volume] in 24 hour UrineThe [facility] Hospital P-ANCA measurementThe Jewish HospitalPatient EducationKnow your MedMount Carmel Health System Work Phone: Patient referralMagruder Hospital Ctr Work Phone: Proteinase 3 Ab [Units/volume] in Serum by Immunoassay [facility] HospitalRenin [Enzymatic activity/volume] in Plasma [facility] HospitalRepair extensor tendon finger w/o graft each REPAIR, EXTENSOR TENDON, FINGER, PRIMARY/SECONDARY; W/O FREE GRAFT, EACH TENDON Procedures Routine Open displaced fracture of middle phalanx of left index finger with routine healing, subsequent encounter Ordered: 06/09/2024THE [employer] Work Phone: Comment on above:Ordered: 06/09/2024US Lower extremity vein - rightThe Jewish HospitalXR Knee - right 3 ViewsH[facility] Immunizations Immunization DateImmunizationNotesCare NxoxbvngMemqgxax34-05-7881avldulp toxoid, reduced diphtheria toxoid, and acellular pertussis vaccine, adsorbed; Translations:[Boostrix (Tdap)]Claudia Arandawalesameer [facility]04-12-2000diphtheria, tetanus toxoids and acellular pertussis vaccine, unspecified formulationKathryn Sandoval PA-C Work Phone: [phone]lOltedf76-72-0286olkkbqngbjs influenzae type b vaccine, PRP-OMP conjugateKathryn Sandoval PA-C Work Phone: [phone]qOlaypb52-48-5244hcvqzzu, mumps and rubella virus vaccineKathryn Sandoval PA-C Work Phone: [phone]lAztcuv88-32-7662ihbsirwuij vaccine, inactivated Charlene Sandoval PA-C Work Phone: [phone]sLgyrke09-93-8640ggmrcaersq, tetanus toxoids and acellular pertussis vaccine, unspecified formulationKathryn Sandoval PA-C Work Phone: [phone]rEhtbuk03-12-0081egbpvlkrzvx influenzae type b vaccine, PRP-OMP conjugateKathryn Sandoval PA-C Work Phone: EocpyCszvrw48-065011BkaflShkfim03-45-9622rblzmlmdze, tetanus toxoids and acellular pertussis vaccine, unspecified formulationKathryn Sandoval PA-C Work Phone: OteruCsdnsl03-022894RzkhkHtbvnx35-06-3595hijlyirzryk influenzae type b vaccine, PRP-OMP conjugateKathryn Sandoval PA-C Work Phone: [phone]xzhpap B vaccine, pediatric or pediatric/adolescent dosageKathryn Sandoval PA-C Work Phone: VeyjwLqbqqr46-817976DhejzGwwpyo87-95-7522morwuhaist vaccine, inactivated Charlene Sandoval PA-C Work Phone: ZptroCmvdze03-439764RfginQykgtw20-75-8879jmafdxzwyb, tetanus toxoids and acellular pertussis vaccine, unspecified formulationKathryn Sandoval PA-C Work Phone: EmkvfKmjqxg12-785291VawzzLqxxdw93-86-5688qdpjnxfpgkp influenzae type b vaccine, PRP-OMP conjugateKathryn Sandoval PA-C Work Phone: YcjnxBcjsbn86-788485CnjfkQnuwmk07-92-7586bhfzxwfelo vaccine, inactivated Charlene Sandoval PA-C Work Phone: ErwcyGqncgu22-567327AqgcrUmrxoi15-96-3645fyedgzlcf B vaccine, pediatric or pediatric/adolescent dosageKathryn Sandoval PA-C Work Phone: [facility] Payers DatePayer CategoryPayerPolicy ID2025Self-[id number] IndemnityMEDICAL MUTUAL - HMO/PPO/POS .[id number] 2.16.840.2.69005[id number] 2.16.840.1.155131.3.57[id number] 2.16840.1.390889.3.57[id number] 2.16.840.1.751782.3.57[id number] 2.16.840.1.997887.3.57[id number] 2.840.1.230716.3.57[id number] 2.16.840.1.602354.3.57[id number] 2.16.840.1.182553.3.57[id number] 2.16.840.1.564162.3.579.[id number] 2.16840.1.029579.3.57[id number] 2.16.840.1.283443.3.57[id number] 2.16.840.1.129300.3.57[id number] 2.16.840.1.521462.3.579.[id number] 2.16.840.1.112643.3.57[id number] 2.0.1.973662.3.579.2.6[id number] 2.0.1.211580.3.57[id number] 2..1.680011.3.57[id number] 2..1.028462.3.579.[id number] 2..1.401527.3.579.[id number] 2..1.604940.3.579.[id number] 2..1.449819.3.579.2.[id number] 2..1.202940.3.579.2.85134-96-2741Uhvopgm10772393 2..1.372574.3.579.[id number] 2..1.897476.3.579.2.727Blue Cross Blue [id number] Caresource [id number] [id number]-uuf6-08802v34545gFrcoccjXampwx /[id number] 706ilt10-73a5-9u14-9k7i-[id number] 2.0.1.397191.3.579.2.714Ekffhqv17780655 2..1.766170.3.579.2.531 Social History DateTypeDetailFacilityStart: 74-20-3527Upjlsif smoking statusHeavy tobacco smoker (finding)[facility] CenterStart: 06-01-2024 End: 56-96-2585Wgv Assigned At BirthE[facility] CenterStart: 06-01-2024 End: 80-47-4377Nbcuhsv smoking status NHISSmokes tobacco dailyMetroHealthHistory of tobacco useCigarette SmokerMetroHealthStart: 65-04-4008Qbwuzyc use and exposureSmokeless tobacco non-userMetroHealthStart: 06-10-2024 End: 36-30-2963Auxqogjci beverage intakeCurrent drinker of alcohol (finding) [facility]HealthStart: 06-01-2024 End: 65-94-5295Ofspbmj of Social functionMetroHealthStart: 18-13-1530Mnelwej CommentCutting down to 1-2 cigs a day ( 05/2024) SSMetroHealthStart: 06-01-2024 Alcohol Commentdaily 2-3 mixed drinks after workMetroHealthStart: 87-20-6644Yhp assigned at birthNot on fileMetroHealthStart: 05-30-2024 End: 89-01-1860YniEmkc (finding)[facility] Work Phone: Start: 61-84-2504Tvftine smoking status NHISSmoker (finding)[facility] CenterStart: 13-58-1602Bji Assigned At [facility] HospitalTobacco smoking status NHISTobacco smoking consumption unknownMetroHealthStart: 06-01-2024 End: 78-56-1326Teqwbio of drug misuse behaviorMisused drugs in past (finding) [facility]HealthStart: 23-50-5513HHLX Follow upSDOH Follow up[facility] Work Phone: Medical Equipment Procedure CodeEquipment CodeEquipment Original TextEquipment IdentifierDatesJennifer Christopher 2 Pnt 4in .035 Bx6 134948 - [id number]: 07-23-2024 Wire Christopher 2 Pnt 4in .035 Bx6 222819 - [id number]_zibMdgvo: 06-09-2024K Wire Christopher 2 Pnt 4in .035 Bx6 412568 - [id number]_kseHykab: 07-23-2024K Wire Christopher 2 Pnt 4in .035 Bx6 495347 - [id number]_yawThquw: 06-09-2024K Wire Christopher 2 Pnt 4in .035 Bx6 311408 - [id number]_mjoTtlga: 07-23-2024K Wire Christopher 2 Pnt 4in .035 Bx6 539604 - [id number]_jifOjrwe: 06-09-2024K Wire Christopher 2 Pnt 4in .035 Bx6 837636 - [id number]_rsuZwgyd: 07-23-2024K Wire Christopher 2 Pnt 4in .035 Bx6 681680 - [id number]_ovnZqvep: 06-09-2024K Wire Christopher 2 Pnt 4in .035 Bx6 515647 - [id number]_zenLaytz: 07-23-2024K Wire Christopher 2 Pnt 4in .035 Bx6 616662 - [id number]_esnYnuye: 06-09-2024 Functional Status OjqbLfqupbfohyGzjkygHgepxkzu39-08-9082Gwfuomifxh StatusN/[facility]02-25-2023Functional StatusN/[facility] Clinical Notes 06-22-2022 to 02-02-2025 Note Date & [id number] Evaluation note* Diagnosis Onset Date Resolution Status Admit Date Right knee pain acuteOctober 2024 1:00pmRight leg painacuteOctober 2024 1:00pmSwelling of right kneeacuteOctober 2024 1:00pmSwelling of right lower extremityacute October 2024 1:00pmRight knee painacuteOctober 2024 12:08pmSwelling of right kneeacuteOctober 2024 12:08pm [facility] Work Phone: 1(764) 244-732610-08-2025 Evaluation note* Diagnosis Onset Date Resolution Status Admit Date Right knee pain acuteOctober 2024 1:00pmRight leg painacuteOct2024 1:00pmSwelling of right kneeacuteOctober 2024 1:00pmSwelling of right lower extremityacute October 2024 1:00pmRight knee painacuteOctober 2024 12:08pmSwelling of right kneeacuteOct2024 12:08pmRight knee painacuteOctober 2024 9:49amSwelling of right kneeacuteOctober 2024 9:49am [facility] Work Phone: 1(944) 170-907405-12-2025 Evaluation note* Diagnosis Onset Date Resolution Status Admit Date BMI 34.0-34.9,adult acuteMay 2024 9:37amGoutacuteMay 2024 9:37amHypertensionacuteMay 2024 9:37amObeseacuteMay 2024 9:37amBMI 34.0-34.9,adultacuteJune 2024 10:13amObeseacuteJune 2024 10:13am [facility] Work Phone: 1(825) 512-543605-12-2025 Evaluation note* Diagnosis Onset Date Resolution Status Admit Date BMI 34.0-34.9,adult acuteMay 2024 9:37amGoutacuteMay 2024 9:37amHypertensionacuteMay 2024 9:37amObeseacuteMay 2024 9:37amBMI 34.0-34.9,adultacuteJune 2024 10:13amObeseacuteJune 2024 10:13amAKI (acute kidney injury) acuteJune 2024 12:33amDehydrationacuteJune 2024 12:33amGoutacuteJune 2024 12:33amHypertensionacuteJune 2024 12:33amHypokalemiaacuteJune 2024 12:33amMicroscopic hematuriaacuteJune 2024 12:33amProteinuria acuteJune 2024 12:33amTobacco dependenceacuteJune 2024 12:33am [facility] Work Phone: 1(230) 867-299403-30-2025 Telephone encounter Note* Telephone Encounter - Danay Figueroa PharmD - 07/25/2024 12:54 PM EDT Patient sent a second request for oxycodone in MyChart 07/25/2024. [facility] Work Phone: 1(381) 470-258403-30-2025 Miscellaneous Notes* Telephone Encounter - Danay Figueroa PharmD - 07/25/2024 12:54 PM EDT Patient sent a second request for oxycodone in [employer] 07/25/2024. documented in this [id number] Surgery Postoperative evaluation and management note* Brief Operative Note - Emelina Diego DO - 07/23/2024 2:13 PM EDT Brief Operative Note BV OR 1 Tu Casiano 28 year old male Surgical Contact Serial Number: [id number] Preoperative Diagnosis: Pre-op Diagnosis * Traumatic amputation of finger, initial encounter [S68.119A] * Hand laceration involving tendon, right, subsequent encounter [S61.411D, S66.921D] Postoperative Diagnosis: * Traumatic amputation of finger, initial encounter [S68.119A] * Hand laceration involving tendon, right, subsequent encounter [S61.411D, S66.921D] Procedures: Right small finger hardware removal Surgeon(s): Surgeon(s): Cely Strauss MD Staff: Scrub: Maryam Mao Calculator Operator Nurse: Lidya Williamson RN Fare Collector: Emelina Diego DO; Cristopher Kaur DMD, MD Anesthesia: Consult Anesthesiologist: Salinas Saldaña MD LICENSING AND REGISTRATION DIRECTOR: Jessica Aguilar APRN-LAUREN Anesthesia Student: Carolina Tamez Specimen(s): * No specimens in log * Estimated Blood Loss: less than 5 cc Lines/Drains: Peripheral IV Access: 07/23/24 1249 22 gauge Left;Posterior Hand (Active) Site Assessment WNL;Dressing intact 07/23/24 124 Infusion Status Port #1 Capped;Patent;Positive blood return 07/23/24 124 Temporarily Retained Foreign Object: No Location: Object: Anticipated removal date: Findings: Normal Complications: None Status at end of surgery: Stable Activity: Ad Jesica Surgical wound class: Yes, wound was clean. Patient Class: Outpatient Surgery. Is this a patient scheduled as an outpatient that needs to be admitted as an inpatient? No Dr. Strauss was present in the OR for the critical portion of the procedure and procedure sign-out. Signed by Emelina Diego DO 07/23/2024 2:21 PM [id number] Surgery Surgical operation note* OP Note - Emelina Diego DO - 07/23/2024 2:13 PM EDT OPERATIVE NOTE Plastic Surgery Name: Tu Casiano [facility]: [id number] Surgical Age: [age] year old Date of [...] II Procedural Care Complete Surgeon(s): Primary: Cely Strauss MD Geometry Teacher Surgeon: Scrub: Maryam Mao Calculator Operator Nurse: Lidya Williamson RN Fare Collector: Emelina Diego DO; Cristopher Kaur DMD, MD [...] of surgery: Stable The Attending Surgeon Dr. Strauss was present for all critical parts of the procedure. Emelina Diego DO Cosigned by Cely Strauss MD at 07/26/2024 11:46 AM EDT [id number] Miscellaneous Notes* Brief Operative Note - Emelina Diego DO - 07/23/2024 2:13 PM EDT Brief Operative Note BV OR 1 Tu Casiano 28 year old male Surgical Contact Serial Number: [id number] Preoperative Diagnosis: Pre-op Diagnosis * Traumatic amputation of finger, initial encounter [S68.119A] * Hand laceration involving tendon, right, subsequent encounter [S61.411D, S66.921D] Postoperative Diagnosis: * Traumatic amputation of finger, initial encounter [S68.119A] * Hand laceration involving tendon, right, subsequent encounter [S61.411D, S66.921D] Procedures: Right small finger hardware removal Surgeon(s): Surgeon(s): Cely Strauss MD Staff: Scrub: Maryam Mao Calculator Operator Nurse: Lidya Williamson RN Fare Collector: Emelina Diego DO; Cristopher Kaur DMD, MD Anesthesia: Consult Anesthesiologist: Salinas Saldaña MD LICENSING AND REGISTRATION DIRECTOR: Jessica Aguilar APRN-LAUREN Anesthesia Student: Carolina Tamez [...] be admitted as an inpatient? No Dr. Strauss was present in the OR for the critical portion of the procedure and procedure sign-out. Signed by Emelina Diego DO 07/23/2024 2:21 PM * OP Note - Emelina Diego DO - 07/23/2024 2:13 PM EDT OPERATIVE NOTE Plastic Surgery Name: Tu Casiano CSN: [id number] Surgical Age: [age] year old Date of [...] II Procedural Care Complete Surgeon(s): Primary: Cely Strauss MD Geometry Teacher Surgeon: Scrub: Maryam Mao Calculator Operator Nurse: Lidya Williamson RN Fare Collector: Emelina Diego DO; Cristopher Kaur DMD, MD [...] of surgery: Stable The Attending Surgeon Dr. Strauss was present for all critical parts of the procedure. Emelina Diego DO Cosigned by Cely Strauss MD at 07/26/2024 11:46 AM EDT documented in this [id number] Hospital Discharge instructions* Discharge Instructions* Tammy Maher RN - 07/23/2024 1:45 PM EDT DEPARTMENT OF PLASTIC SURGERY DISCHARGE INSTRUCTIONS Outpatient Surgery C O N F I D E N T I A L I N F O R M A T I O N Hand Surgery Plastic Surgery Department Call [phone] during regular daytime business hours (8:00 am - 5:00 pm) and after 5:00 pm call [phone] or [phone] and ask for the Plastic Surgery (service) resident with any questions or concerns. If it is a life-threatening situation, proceed to the nearest emergency department. Follow up is typically in 7-10 days and should be scheduled by calling the office at [phone] if it has not already been arranged. [...] Home Anesthesia received: IV Sedation Physicians: Dr. Strauss (Plastic Surgery) Procedure performed: Hand Surgery What [...] these, please contact your doctor's office at [phone]. Any fever higher than 100.4 F, especially if associated with an ill feeling, abdominal pain, chills, or nausea should be reported to your surgeon. Emergencies: If there is a non-urgent problem, please call the office at [phone]. Most issues are easily addressed and do [...] room. Please call us as well at [phone]. * Attachments The following attachments cannot be sent through Care Everywhere. * Acute Pain Discharge Instructions, Adult (Omani) documented in this [id number] History and physical note* Cristopher Kaur DMD, MD - 07/23/2024 1:42 PM EDT Images from the original note were not included. Surgical History and Physical [facility] Ambulatory Surgery [address] [id number] Name: Tu Casiano : 1995 28 year old CSN: [id number] Attending: Cely Strauss MD Date of Admission: 07/23/2024 12:17 PM [...] (06/09/2024) Procedure: REPAIR, TENDON, EXTENSOR; Surgeon: Cely Strauss MD; Location: PERIOPERATIVE SERVICES; Service: Plastics REDUCTION, OPEN, HAND (06/09/2024) Procedure: REDUCTION, OPEN, HAND; Surgeon: Cely Strauss MD; Location: PERIOPERATIVE SERVICES; Service: Plastics Medications: [...] hospital encounter of 05/30/24 (from the past 50840 hours) Complete Blood Count W/Diff Collection Time: [...] Kaur DMD, MD. Discussed with attending Cely Strauss MD. Cristopher Kaur DMD, MD 07/23/24 1:42 PM Cosigned by Cely Strauss MD at 07/23/2024 1:46 PM EDT [id number] NoteSurgical History and Physical [facility] Ambulatory Surgery [address] [id number] Name: Tu Casiano : 1995 28 year old CSN: [id number] Attending: Cely Strauss MD Date of Admission: 07/23/2024 12:17 PM [...] (06/09/2024) Procedure: REPAIR, TENDON, EXTENSOR; Surgeon: Cely Strauss MD; Location: PERIOPERATIVE SERVICES; Service: Plastics REDUCTION, OPEN, HAND (06/09/2024) Procedure: REDUCTION, OPEN, HAND; Surgeon: Cely Strauss MD; Location: PERIOPERATIVE SERVICES; Service: Plastics Medications: [...] hospital encounter of 05/30/24 (from the past 37950 hours) Complete Blood Count W/Diff Collection Time: [...] medical history an (more content not included)...[facility] [id number] History and physical note* Cristopher Kaur DMD, MD - 07/23/2024 1:42 PM EDT Images from the original note were not included. Surgical History and Physical [facility] Ambulatory Surgery [address] [id number] Name: Tu Casiano : 1995 28 year old CSN: [id number] Attending: Cely Strauss MD Date of Admission: 07/23/2024 12:17 PM [...] (06/09/2024) Procedure: REPAIR, TENDON, EXTENSOR; Surgeon: Cely Strauss MD; Location: PERIOPERATIVE SERVICES; Service: Plastics REDUCTION, OPEN, HAND (06/09/2024) Procedure: REDUCTION, OPEN, HAND; Surgeon: Cely Strauss MD; Location: PERIOPERATIVE SERVICES; Service: Plastics Medications: [...] hospital encounter of 05/30/24 (from the past 64008 hours) Complete Blood Count W/Diff Collection Time: [...] Kaur DMD, MD. Discussed with attending Cely Strauss MD. Crisotpher Kaur DMD, MD 07/23/24 1:42 PM Cosigned by Cely Strauss MD at 07/23/2024 1:46 PM EDT documented in this [id number] History of Present illness Narrative* Charlene Nick [...] of the PIP dislocation fracture. Surgeon: Christoph Strauss MD Pain (0-10): Pain Score: 7/10 Other [...] PA-C 07/09/24 2:10 PM documented in this [id number] History of Present illness Narrative* Charlene Nick [...] of the PIP dislocation fracture. Surgeon: Christoph Strauss MD Pain (0-10): Pain Score: 8/10 Other [...] PA-C 06/23/24 12:25 PM documented in this [id number] History of Present illness Narrative* Charlene Nick [...] of the PIP dislocation fracture. Surgeon: Christoph Strauss MD Pain (0-10): 10/10 Other Complaints: Patient [...] PA-C 06/15/24 12:15 PM documented in this [id number] History of Present illness Narrative* Prisca Caballero OTR/Jai, T - 06/15/2024 10:30 AM EST OCCUPATIONAL THERAPY HAND TREATMENT Visit #: 2 Referred to Occupational Therapy for evaluation and treatment. Referring Provider: Charlene Nick PA-C DIAGNOSIS: Right SF open fracture dislocation and extensor tendon laceration and R MF distal phalanx amputation. [facility]ED[facility] 1. R MF revision amputation at the level of distal portion of the middle phalanx. 2. Fixation of the extensor tendon at 2 different places, in central slip and also zone 5. 3. Open reduction of the PIP dislocation fracture. DOI/Mechanism: 05/30/24 - table saw injury Precautions: Small finger PIP is pinned. Extensor tendon precautions. NWB Payor: [employer] - HMO/PPO/POS / Plan: [facility] PPO/CLASSIC/PLUS / Product Type: PPO Tu Casiano [...] updated medication list. 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 Identification [...] right UE into bimanual activities to complete housekeeper child care tasks. Status: INITIATED Pt will integrate right [...] to OT closer to home per request, [facility] hand out provided Interventions: PROM, AROM, AAROM, [...] OT Therapeutic Procedures THERAPEUTIC EXERCISES (15 MIN) [89208]: 10 SELF-CARE/HOME MANAGEMENT TRAINING (15 MIN) [76498]: 15 Total Timed Code Treatment Minutes: 25 minutes Un-Timed Code Treatments by Procedure: 1 WHO, 1 FO Total Un-Timed Code Treatment Minutes: 35 minutes ERIC Harmon/DARIUS Vergara documented in this [id number] Telephone encounter Note* Telephone Encounter - Rossy [...] will not be permitted. Pt verbalized understanding. [employer] Work Phone: [phone] Miscellaneous Notes* Telephone Encounter - Rossy Nor[place] [...] last night. Please call. documented in this [id number] Telephone encounter Note* Telephone Encounter - Tri Vasquez - 06/10/2024 8:55 AM EST Pt calling to request a different pain med. States was not able to sleep due to pain last night. Please call. [id number] Surgery Surgical operation note* OP Note - Cely Strauss MD - 06/09/2024 8:45 PM EST Name: TU CASIANO I MR#: [id number] [facility]#: [id number] Date of Procedure: 06/09/2024 ATTENDING SURGEON: Christoph Strauss MD CELLULAR PLASTICS CUTTER: Dr. Matta PREOPERATIVE DIAGNOSES: Right hand small [...] transferred to PACU in stable condition. Christoph Strauss MD SAT/MedQ/Dict: 06/09/2024 15:21:21 TRANS: 06/09/2024 15:42:55 JOB: [id number] [employer]#: [id number] Miscellaneous Notes* OP Note - Cely Strauss MD - 06/09/2024 8:45 PM EST Name: TU CASIANO I MR#: [id number] [facility]#: [id number] Date of Procedure: 06/09/2024 ATTENDING SURGEON: Christoph Strauss MD CELLULAR PLASTICS CUTTER: Dr. Matta PREOPERATIVE DIAGNOSES: Right hand small [...] Carranza/MedQ/Dict: 06/09/2024 15:21:21 TRANS: 06/09/2024 15:42:55 JOB: [id number] [employer]#: [id number] * Brief Operative Note - Cely Strauss MD - 06/09/2024 2:30 PM EST Brief Op Note Surgical Name: Tu Casiano CSN: [id number] Age: [age] year old Date of : 1995 Preoperative diagnosis(es): Pre-op Diagnosis * Hand laceration involving tendon, right, subsequent encounter [Z11.640D, U10.774F] Postoperative diagnosis(es): Same Procedure(s): REPAIR, TENDON, EXTENSOR REDUCTION, OPEN, HAND Surgeon: Cely Strauss MD Geometry Teacher surgeon: Dr. Matta Anesthesia: General Specimen(s): * [...] end of surgery: Stable Dictated by: Cely Strauss MD: I was present for the critical parts of the procedure. Cely Strauss MD 06/09/2024 3:13 PM * Blood Attestation - Js Gonzalez MD - 06/09/2024 12:58 PM EST Blood Attestation: ATTESTATION OF INFORMED CONSENT FOR BLOOD: The transfusion of blood and/or blood components were discussed with the patient and/or legal loss control representative. The risks, benefits and alternatives were reviewed. Questions regarding blood transfusions were answered. The patient /or the patient s legal loss control representative agree with the plan for transfusion of blood and/or blood components. documented in this [id number] History of Present illness Narrative* Carolyn Ghosh [...] instructions and home prescriptions. documented in this [id number] NotePeripheral Block Patient location during procedure: holding [...] Slow fractionated injection: yes No block [facility]The [facility] NoteAcute Pain Note and Procedure Patient: Tu [...] Laila Golden DO Anesthesiology, PGY-3 06/09/2024, 4:23 [facility]02-12-2025 Surgery Postoperative evaluation and management note* Brief Operative Note - Cely Strauss MD - 06/09/2024 2:30 PM EST Brief Op Note Surgical Name: Tu Casiano CSN: [id number] Age: [age] year old Date of : 1995 Preoperative diagnosis(es): Pre-op Diagnosis * Hand laceration involving tendon, right, subsequent encounter [F00.380P, Z72.320Y] Postoperative diagnosis(es): Same Procedure(s): REPAIR, TENDON, EXTENSOR REDUCTION, OPEN, HAND Surgeon: Cely Strauss MD Geometry Teacher surgeon: Dr. Matta Anesthesia: General Specimen(s): * [...] end of surgery: Stable Dictated by: Cely Strauss MD: I was present for the critical parts of the procedure. Cely Strauss MD 06/09/2024 3:13 PM [id number] Progress note* Blood Attestation - Js Gonzalez MD - 06/09/2024 12:58 PM EST Blood Attestation: ATTESTATION OF INFORMED CONSENT FOR BLOOD: The transfusion of blood and/or blood components were discussed with the patient and/or legal loss control representative. The risks, benefits and alternatives were reviewed. Questions regarding blood transfusions were answered. The patient /or the patient s legal loss control representative agree with the plan for transfusion of blood and/or blood components. [employer] Work Phone: 1(377) 924-438902-12-2025 History and physical note* Stevie Glasgow MD - 06/09/2024 12:54 PM EST Images from the original note were not included. Surgical History and Physical [email or web address] [address] [address] Name: Tu Casiano : 1995 28 year old CSN: [id number] Attending: Cely Strauss MD Date of Admission: 06/09/2024 10:39 AM [...] hospital encounter of 05/30/24 (from the past 30996 hours) CBC WITH DIFFERENTIAL Collection Time: 05/30/24 [...] Stevie Glasgow MD. Discussed with attending Cely Strauss MD. Stevie Glasgow MD 06/09/24 12:[address] [facility] [employer] Work Phone: 1(999) 933-287402-12-2025 NoteSurgical History and Physical [facility] Main OR [address] [facility] [employer] [address] [address] Name: Tu Casiano : 1995 28 year old CSN: [id number] Attending: Cely Strauss MD Date of Admission: 06/09/2024 10:39 AM [...] hospital encounter of 05/30/24 (from the past 10286 hours) CBC WITH DIFFERENTIAL Collection Time: 05/30/24 [...] Stevie Glasgow MD. Discussed with attending Cely Strauss MD. Stevie Glasgow MD 06/09/24 12:54 [facility] [id number] History and physical note* Stevie Glasgow MD - 06/09/2024 12:54 PM EST Images from the original note were not included. [facility] [address] [address] Name: Tu Casiano : 1995 28 year old CSN: [id number] Attending: Cely Strauss MD Date of Admission: 06/09/2024 10:39 AM [...] hospital encounter of 05/30/24 (from the past 22280 hours) CBC WITH DIFFERENTIAL Collection Time: 05/30/24 [...] Stevie Glasgow MD. Discussed with attending Cely Strauss MD. Stevie Glasgow MD 06/09/24 12:54 PM documented in this [id number] Hospital Discharge instructions* Discharge Instructions* Carolyn Ghosh [...] (Arrive by 9:50 AM) Charlene Nick PA-C [facility] Plastic Surgery [facility] 06/15/2024 10:30 AM (Arrive by 10:20 AM) [facility] Occupational Therapy Arrive at: [facility] During business hours, if you need to reach your provider, please call Plastic Surgery Office [phone]. After hours, if you have an urgent question or issue, you can also call this number and request to be connected to one of the residents on-call. PERIOPERATIVE DISCHARGE/HOME-GOING INSTRUCTIONS ANESTHESIA - GENERAL (ADULT) If a problem arises, you may contact your physician by calling [phone] and asking for the resident security solutions architect for Plastic Surgery service. Special Care [...] very uncomfortable and can t urinate, call [phone] or come tothe emergency room. A risk [...] less likely. For more informati on visit: [email or web address]/ Some medications or combinations of medications can [...] and treated if needed documented in this [id number] Evaluation + Plan note* Assessment & Plan [...] - Follow up one week post operatively. [id number] Miscellaneous Notes* Assessment & Plan Note - [...] one week post operatively. documented in this [id number] NoteOCCUPATIONAL THERAPY HAND CLINIC EVALUATION Visit #: 1 Referred to Occupational Therapy for evaluation and treatment. Referring Provider: Cely Strauss MD Diagnosis: R hand MF and SF [...] updated medication list. 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 Status: INITIATED Pt will integrate right [...] to OT closer to home per request, [facility] hand out provided Interventions: P (more content not included)...[employer] [id number] History of Present illness Narrative* Federico Galeana, JOHNR/Jai, T - 06/02/2024 1:30 PM EST OCCUPATIONAL THERAPY HAND CLINIC EVALUATION Visit #: 1 Referred to Occupational Therapy for evaluation and treatment. Referring Provider: Cely Strauss MD Diagnosis: R hand MF and SF [...] updated medication list. 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 Status: INITIATED Pt will integrate right [...] to OT closer to home per request, [facility] hand out provided Interventions: PROM, AROM, AAROM, [...] minutes SHARRI Barroso CHT documented in this [id number] History of Present illness Narrative* Charlene Nick [...] Open fracture of middle phalanx of finger [S62.359B] Family History: No family history on file. [...] PA-C 06/02/24 12:06 PM documented in this [id number] Telephone encounter Note* Telephone Encounter - Rossy [...] POC. Preferred pharmacy for oxycodone refill is [facility] in [facility]. Current rx ends 2/5-pt aware we might not be able to fill until 2 based on frequency of rx. [employer] Work Phone: 1(371) 438-468302-04-2025 Miscellaneous Notes* Telephone Encounter - Rossy Norwood [...] POC. Preferred pharmacy for oxycodone refill is [facility] in [facility]. Current rx ends 2/5-pt aware we might not be able to fill until 06/03 based on frequency of rx. * Telephone Encounter - Sharron Santacruz - 06/01/2024 8:56 AM EST Please call patient in regards to pain medication refill. Pain meds now not working so good. Please call patient TONY they run out of meds by tomorrow. [phone] documented in this [id number] Instructions* Discharge Instructions* Elma Parra RN - 06/01/2024 8:58 AM EST June 01, 2024 Mr. Johnson, You are scheduled for your procedure/surgery on 06/09/[address] Strauss at the [facility] location. You will be contacted on 06/08/2024 between 1-3 PM and provided with your arrival time. [facility] [address] [facility] [address] [place] [address] [facility] PARKING INSTRUCTIONS Please plan extra time for parking and shuttle service. We recommend arriving at least 15 minutes prior to the time your care team advises you need to be here. Parking is available in the [employer] [facility] accessible from [facility] [employer]. 18/11 shuttle service from the garage to the [facility] is available. Go to the ground floor of the parking garage to reach the shuttle pick-up station located just outside the elevator and stairs. Shuttle service will drop you off at the [facility] entrance. Fraternity Adviser service is available at the [facility] entrance if you prefer fruit ii farmworker over parking. [facility] Fraternity Adviser Services Hours: Friday-Friday 5:30 am to 8:00 pm Enter the [facility] entrance and go to the Admitting/Registration [...] BOLD TEXT ? Expect a call from [facility] one business day prior to surgery for [...] stay with you after surgery. Please call [facility] Social Work if you need transportation assistance or have concerns about going home [phone]. ? PLEASE BE ON TIME. A late arrival may result in the cancellation/ delay of your surgery. Thank you for choosing [facility]; it is our pleasure to care for you If you become ill prior to procedure or surgery, or a family emergency should arise, please call the provider or surgeon's office directly. documented in this [id number] Telephone encounter Note* Telephone Encounter - Sharron Santacruz - 06/01/2024 8:56 AM EST Please call patient in regards to pain medication refill. Pain meds now not working so good. Please call patient TONY they run out of meds by tomorrow. [phone] [id number] Evaluation note* PAT Call History - Elma Parra RN - 06/01/2024 8:36 AM EST Images from the original note were not included. Telephone History Tu Johnson, [id number] 06/01/2024 28 year old 255 lbs 6' [...] or procedure with anesthesia scheduled at [facility] ED Visit (05/30/2024) Partial Note- Hand [...] was transferred here from [facility] for surgical consultation. A/P 28-year-old male with a past medical history listed above who presents to the emergency department as a transfer from [facility] for hand surgery consult. On initial [...] and pain control prior to evaluation at [facility]. Hand surgery was consulted, evaluated the patient [...] as outpatient - Follow up with Dr. Strauss's office for surgery (schedulers messaged) - 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 Expect a call from [facility] one day prior to surgery for surgery [...] stay with you after surgery. Please call [employer] Work if you need transportation assistance or have concerns about going home [phone]. ? PLEASE BE ON TIME. A late arrival may result in the cancellation/ delay of your surgery. Thank you for choosing [facility]; it is our pleasure to care for you Elma Parra RN, RN Time Spent Performing this Telephone History: 30 min [id number] Miscellaneous Notes* PAT Call History - Elma Parra RN - 06/01/2024 8:36 AM EST Images from the original note were not included. Telephone History Tu Johnson, [id number] 06/01/2024 28 year old 255 lbs 6' [...] or procedure with anesthesia scheduled at [facility] ED Visit (05/30/2024) Partial Note- Hand [...] was transferred here from [facility] for surgical consultation. A/P 28-year-old male with a past medical history listed above who presents to the emergency department as a transfer from [facility] for hand surgery consult. On initial [...] and pain control prior to evaluation at [facility]. Hand surgery was consulted, evaluated the patient [...] as outpatient - Follow up with Dr. 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 Expect a call from [facility] one business day prior to surgery for [...] a car, cab, shared ride service, or [employer]. You will not be allowed to drive yourself home or travel home alone. Your surgery may be cancelled if you do not havea ride. A responsible adult must stay with you after surgery. Please call [employer] if you need transportation assistance or have concerns about going home [phone]. ? PLEASE BE ON TIME. A late arrival may result in the cancellation/ delay of your surgery. Thank you for choosing [facility]; it is our pleasure to care for you Elma Parra RN, RN Time Spent Performing this Telephone History: 30 min documented in this [id number] Note* Addendum Note - Charlene Nick PA-C - 05/30/2024 12:19 PM ESTAddended by: CHARLENE NICK on: 05/30/2024 12:19 PM Modules accepted: Orders [id number] Miscellaneous Notes* Addendum Note - Charlene Nick PA- C - 05/30/2024 12:19 PM ESTAddended by: CHARLENE NICK on: 05/30/2024 12:19 PM Modules accepted: Orders documented in this [id number] Hospital Discharge instructions* Discharge Instructions* Kenji Flores [...] Care Everywhere. * Wound Care Discharge Instructions (Omani) documented in this [id number] Consult note* Stevie Paiz MD - 05/30/2024 [...] where decision was made to transfer to [facility]. Thepatient reports pain 10/10pm right small and [...] as outpatient - Follow up with Dr. Strauss's office for surgery (schedulers messaged) - ke[facility] [...] Paiz MD Plastic Surgery - PGY5 Pager: [phone] Cosigned by Cely Strauss MD at 05/31/2024 8:30 AM EST [facility] Work Phone: 1(277) 707-718502-02-2025 Consult note* Stevie Paiz MD - 05/30/2024 [...] where decision was made to transfer to [facility]. Thepatient reports pain 10/10pm right small and [...] as outpatient - Follow up with Dr. Strauss's office for surgery (schedulers messaged) - [facility] for discharge - Dispo: per ED Procedure [...] Paiz MD Plastic Surgery - PGY5 Pager: [phone] Cosigned by Cely Strauss MD at 05/31/2024 8:30 AM EST documented in this [id number] Physician Emergency department Note* Leonardo Roberts MD - 05/30/2024 1:39 AM EST Images from the original note were not included. EMERGENCY DEPARTMENT - VISIT NOTE HISTORY OF PRESENT ILLNESS Chief Complaint Patient presents with Hand/finger symptoms Hand injury from a table saw, sent from [facility] State Inspector: not needed - patient preferred language is Omani. The history is provided by the Patient. [...] was transferred here from [facility] for surgical consultation. On chart review, [...] as a transfer from [facility] for hand surgery consult. On initial [...] and pain control prior to evaluation at [facility]. Hand surgery was consulted, evaluated the patient [...] Attending Physician Department of Emergency Medicine Pager [phone] [facility] Work Phone: 1(596) 174-108802-02-2025 Emergency department Note* Leonardo Roberts MD - 05/30/2024 1:39 AM EST Images from the original note were not included. EMERGENCY DEPARTMENT - VISIT NOTE HISTORY OF PRESENT ILLNESS Chief Complaint Patient presents with Hand/finger symptoms Hand injury from a table saw, sent from [facility] State Inspector: not needed - patient preferred language is Omani. The history is provided by the Patient. [...] was transferred here from [facility] for surgical consultation. On chart review, [...] as a transfer from [facility] for hand surgery consult. On initial [...] and pain control prior to evaluation at [facility]. Hand surgery was consulted, evaluated the patient [...] Attending Physician Department of Emergency Medicine Pager [phone] documented in this [id number] Evaluation + Plan note Extracted from:Title:ED NoteAuthor:Fátimasameer Claudia ARANDA ADate:05/29/24 Open displaced fracture of m iddle phalanx of finger of right hand (M08.629B: Displaced fracture of middle phalanx of unspecified [...] EST tetanus/diphtheria/pertussis, acel (Tdap), 0.5 mL, Injection, Intramuscular- Immunization, Once, Stop date 05/29/24 21:41:00 EST, STAT, Start date 05/29/24 21:41:00 EST Transfer Patient XR Hand 3+ Views Right [facility] 12-10-2023 Evaluation note* Encounter Date Diagnosis Assessment Notes Treatment Notes Treatment Clinical Notes Mar, Acute gout of right ankle, unspe cified cause (ICD-10 - M10.9) Gout home care material was printed, Low-purine diet material was printed Drink plenty fluids, get plenty of rest. Try to follow a low purine diet. Take the prednisone as prescribed until gone. Follow-up with your family physician if no improvement in 2 to 3 days. [facility] Other 02-26-2023 Hospital Discharge instructions Patient Education 06/22/2022 23:52:48 Laceration Care, Adult, Qoyn-do-Qpoc Laceration Care, Adult A laceration is a [...] prevent scarring. Supplies needed: Soap. Water. Hand sheetrock applicator. Bandage (dressing). Antibiotic ointment. Clean towel. How to take care of your cut Wash your hands with soap and water before touching your wound or changing your bandage. If soap and water are not available, use hand sheetrock applicator. If your doctor used stitches or nidhi: [...] falls off the skin. General instructions Take ghsb-bxu-gnjhcgz and prescription medicines only as told by [...] 09/30/2008 Document Revised: 06/12/2018 Document Reviewed: 05/04/2018 [facility] Patient Education [employer]. Follow Up Care 06/22/2022 21:21:07 With:Skip ARANDA, PRICILA Asencio Address: [address] [place] [address] When:2 weeks Comments:for suture removal [facility]02-25-2023 Evaluation + Plan noteExtracted from: Title:ED NoteAuthor:Charlene Valle PA-CDate:06/22/22 1. Laceration of left index finger w/o foreign body w/o damage to nail (S61.211A: Laceration without foreign body of left index finger without damage to nail, initial encounter) Ordered: cephalexin, 500 mg = 1 cap(s), Oral, TID, X 5 day(s), # 15 cap(s), Refills(s) 0, Pharmacy: [facility]/pharmacy #[id number], 182.9, cm, 06/22/22 21:29:00 EST, Height/Length Dosing, 103.4, kg,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
[2025-02-24 13:33] LABS: Hematocrit 53.6 % (42.0-54.0); Hemoglobin 18.4 g/dL (14.0-18.0); Immature Granulocytes Abs Auto 0.02 10^3/uL (0.00-0.03); Immature Granulocytes Pct Auto 0.2 % (0.0-0.5); Lymphocytes Absolute Auto 2.6 10^3/uL (1.2-3.8); Mean Corpuscular HGB Conc 34.3 g/dL (29.9-35.2); Mean Corpuscular Hemoglobin 31.4 pg (25.9-34.0); Mean Corpuscular Volume 91.5 fL (80.0-94.0); Platelet Count 229 10^3/uL (150-450); Red Blood Count 5.86 10^6/uL (4.70-6.10); White Blood Count 9.9 10^3/uL (4.0-11.0)
[2025-02-24 14:14] LABS: Anion Gap 16.1; Blood Urea Nitrogen 7.0 mg/dL (7.0-18.0); Calcium 9.4 mg/dL (8.5-10.1); Carbon Dioxide 26.0 mmol/L (21.0-32.0); Chloride 104 mmol/L (98-107); Estimated GFR (African America >60 (>=60 mL/min/1.73m^2); Estimated GFR (Non-African Ame >60 (>=60 mL/min/1.73m^2); Glucose 105 mg/dL (74-106); Potassium 4.1 mmol/L (3.5-5.1); Sodium 142 mmol/L (136-145)
== END 2025-02-24 13:09 | disposition home or self-care (01) ==
LOC: PST 13:08
PROVIDERS: PCP Internal Medicine; Visit Provider Physician Assistant
DX: Z01.812 Encounter for preprocedural laboratory examination (principal); M25.561 Pain in right knee
CPT/HCPCS: 36415; 80048; 85025; 85652; 86140

== ENCOUNTER 2025-03-03 11:30 | Day surgery (SDC) | payer OTHER, SELFPAY ==
[2025-02-24 13:58] VITALS: BP 152/112; PULSE 89; TEMP 36.2; O2SAT 96; BMI 33.8
--- OUTSIDE RECORDS SUMMARY | 2025-03-01 08:32 | XMS_ITS | Continuity of Care Document ---
Author Organization [facility] Address [address] [place] [address] Phone Care Team Providers Care Guest Service Host Name Role Phone Allison Carr APRN Primary Care Provider Allison Carr APRN Attending Provider Luis Fonseca DO Attending Provider [phone] Provider, Outside Attending Provider Unavailable Care Teams Patient Care Team Team Status: Active Member Role/Relationship Status Dates Allison Carr APRN IN[employer] TUBE INSERTER-C Primary Care Provider Active Visit Care Team Team Status: Inactive Member Role/Relationship Status Dates Allison Carr APRN [employer] TUBE INSERTER-C Primary Care Provider Active Start: February 02, 2025 End: February 02, 2025Allison Carr APRN INNER TUBE INSERTER-CAttending ProviderActive Start: February 02, 2025 End: February 02, 2025 Visit Care Team Team Status: Inactive Member Role/Relationship Status Dates Allison Carr APRN [employer] TU[employer] INSERTER-C Primary Care Provider Active Start: February 03, 2025 End: February 03, 2025Belén Flores ProviderActiveStart: February 03, 2025 End: February 03, 2025 Visit Care Team Team Status: Inactive Member Role/Relationship Status Dates Allison Carr APRN [employer] TUBE INSERTER-C Primary Care Provider Active Start: January End: February 15, 2025Belén Flores ProviderActiveStart: February 15, 2025 End: February 15, 2025 Visit Care Team Team Status: Inactive Member Role/Relationship Status Dates Allison Carr APRN [employer] TU[employer]ERTER-C Primary Care Provider Active Start: January End: February 17, 2025Luis Fonseca , DOAttending ProviderActiveStart: February 17, 2025 End: February 17, 2025 Patient Care Team Team Status: Active Member Role/Relationship Status Dates Allison Carr APRN [employer] TU[employer] INSERTER-C Primary Care Provider Active Start: January Outside ProviderAttending ProviderActiveStart: February 24, 2025 Patient Care Team Team Status: Inactive Member Role/Relationship Status Dates Allison Carr APRN [employer] TUBE INSERTER-C Primary Care Provider Active Start: February End: March 01, 2025Allison Carr APRN IN[employer] TUBE INSERTER-CAttending ProviderActive Start: March 01, 2025 End: March 01, 2025 Chief Complaint and Reason for Visit Chief Complaint Admit Date Right Leg Inflammation February 02, 2025 1:00pm CONSULT ALLISON CARR February 03, 2025 12:08pm m23.91 m25.461 February 15, 2025 8 :59am MRI RESULTS February 17, 2025 9 :49am Pre-Surgical Clearance (Dr. Fonseca) [facility] 2024 1:00pm Reason for Visit Admit Date Right [...] Verified Status No Known Allergies Allergy Unknown March 01, 2025 1:01pmYesActive Social History Smoking Status Status Start Date End Date Date of Observa tion Smokes tobacco daily (finding) February 21, 2025 11:26am Observation Status Observation Response Date of Response Legal Sex Male (finding) Sex Assigned At BirthMaleMay 1995 Family History Relationship Condition Age at Onset Recorded Date/T steffi father Hypertension Unknown Problems Active Problems Problem Diagnosis/Recorded Date Onset Date Status C omments Swelling of right knee February 02, 2025 12:15pm Unknown Active Swelling of right lower extremityOctober 2024 12:15pmUnknownActiveInternal derangement of right kneeOctober 2024 8:30amUnknownActiveGoutMay 2024 9:40amUnknownActiveRight leg painOctober 2024 12:16pmUnknownActivePre- op examinationNovember 2024 1:28pmUnknownActiveBMI 34.0-34.9,adultMay 2024 9:03amUnknownActiveRight knee painOctober 2024 12:15pmUnknownActive HypertensionMay 2024 9:46amUnknownActiveObeseMay 2024 9:03amUnknown ActiveInactive/Resolved Problems Problem Diagnosis/Recorded Date Onset Date Status C omments JO (acute kidney injury) October 23, 2024 12:41am Unknown Resolved Exposure to 2019-nCoVMay 2020 2:58pmUnknownResolvedProblem List clean-up per request of Phys. EHR CmteTobacco dependenceJune 2024 12:54amUnknown ResolvedMicroscopic hematuriaJune 2024 10:10amUnknownResolvedProteinuria October 24, 2024 10:09amUnknownResolvedDehydrationJune 2024 1:13amUnknown ResolvedHypokalemiaJune 2024 1:16amUnknownResolved Medications Medication Status Dose Units Route Directions Qty Days Refills S tart Date Stop Date End Date Reason(s) Instructions Adherence Indomethacin 50 mg capsule Discontinued 50 MG PO Three times daily as needed for gout 7 0 December 30, 2024 11:00pm March 01, 2025 1:04pmGout Gout, unspecifiedadminister with food or milkTramadol 50 mg qnlsaaZoswxvgxnvhw56 MGPOEvery 8 hours as needed for nidx747Yuhjlxf 2024 11:00pmOctober 2024 7:35amRight knee pain Pain in right kneeHydrocodone-Acetaminophen 5-325 mg rkkcujOhxiictujugb7WWUTF Every 8 hours as needed for qodv767Dgertzb 2024October 2024 9:44am Right knee pain Swelling of right knee Pain in right knee Effusion, right knee8 tabletsTramadol 50 mg yiusaiKiwapmlvjbaq80NHGYevdhf 6 to 8 hours as needed for zqtu9336Clauhcb 2024 7:35amNoveer 2024 1:04pm Right knee pain Pain in right kneePrednisone 20 mg QyxkiqTqdktkitrnub57ELFPBbuzw308Ltdq 2024 11:00pmOctober 2024 12:10pmAmlodipine 5 mg EsrgzoOlbyavbfhhbl1TUAZ Osxem140Nvoz 2024 11:00pmOctober 2024 12:10pmLisinopril 10 mg tablet Thajamchxbmw75WFSUPkookSuf 2024 11:00pmMay 2024 9:08amAllopurinol 100 mg vadltcFlccvkmjzubp970TPOIYchvt as neededSeptember 05, 2024 11:00pmMay 2024 9:08amLisinopril 30 mg ggzysmGcqtxx57PTOLRfmtq66719Vkj 2024 9:04am Hypertension Essential (primary) hypertensionComplies with drug therapyIndomethacin 50 mg qdavgoyYffhvckibryk43TAXAIpwci times cvjtj78646RmjSeptember 05, 2024 11:00pmJune 2024 2:01amGout Gout, unspecified flaresadminister with food or milkAllopurinol 100 mg jdmjuuPkcgbkiiyyvz667CKTF Lcmrx09257OiySeptember 06, 2024 9:07amNovember 2024 1:04pmGout Gout, unspecifiedPhentermine (Adipex-P) 37.5 mg laxncbQsplewkagegu38.5MGPODaily 09086JkwSeptember 05, 2024 11:00pmJune 2024 9:33amObesity Body mass index (BMI) of 34.0 to 34.9 in adult Hypertension Obesity, unspecified Body mass index [BMI] 34.0-34.9, adult Essential (primary) hypertensionmust administer 30 minutes before or 1-2 hours after breakfastPhentermine (Adipex-P) 37.5 mg roywrmMozlefxapdpf24.8FYITSpoth53 300June 2024 9:32amAugust 2024 8:42amObesity Body mass index (BMI) of 34.0 to 34.9 in adult Hypertension Obesity, unspecified Body mass index [BMI] 34.0-34.9, adult Essential (primary) hypertensionmust administer 30 minutes before or 1-2 hours after breakfastIbuprofen 800 mg tabletDiscontinuedMGPOOctober 2024 11:00pm March 01, 2025 1:04pmColchicine 0.6 mg tabletDiscontinued0.6MGPOTwice daily 602October 2024 11:00pmMarch 01, 2025 1:04pmTake 2 tabs initially, then take 1 tab 1 hour later followed by 1 tablet twice daily.Hydrocodone- Acetaminophen 5-325 mg ttrwziJixogliadazi9TWDFBGthul 8 hours as needed for pain8 70October 2024October 2024 12:24pmRight knee pain Swelling of right knee Pain in right knee Effusion, right knee8 tabletsHydrocodone-Acetaminophen 5-325 mg tablet Rfdzhhayshat2KPPEWLdzxn 8 hours as needed for nukw634Spcaroc 2024October 2024 1:34pmRight knee pain Swelling of right knee Pain in right knee Effusion, right knee8 tabletsHydrocodone-Acetaminophen 5-325 mg tablet Havnpjszhlpt1ZPPFPGmcvp 8 hours as needed for cigh6396Indxqkw 2024Nov2024 1:04pmRight knee pain Swelling of right knee Pain in right knee Effusion, right kneeten tablets Procedures Procedure Date Performed Status MR knee RT wo con February 15, 2025 8:00am comp leted Relevant Diagnostic Tests and/or Laboratory Data Laboratory Results Test Collection Date/Time Result Date/Time Result Interpretation Reference Range Result Comment Performing Site Miscellaneous Test February 03, 2025 12:15pm February 03, 2025 12:15pm COMMENT .Test Ordered: [id number] Cell Ct, Synovial w/CrystalsColor, Fluid Yellow CB Reference Range: YellowClarity, Fluid Cloudy [A ] CB Reference Range: ClearNucleated Cells, [place] [address] [H ] cells/uL CBReference Range: 0- 200RBC, Fluid 6000 /uL CB Reference Range: Not Estab.Neut, Fluid 99 % CB Reference Range: Not Estab.Lymphocytes, Fluid 1 % CB Reference Range: Not Estab.Macrophages 0 % CB Reference Range: Not Estab.Eosinophils, Fluid 0 % CB Reference Range: Not Estab.Lining Cells, Synovial [employer] T[employer]BE [employer]ERTER NOLAB Reference Range: .Crystal,Synovial/Joint Fl Comment CB Reference Range: None seenNo crystals seen under normal or polarized light.Comments: [employer] NOLAB Reference Range: .Performed at: - Lab[address] [id number] Director: Laurent Walker PhD, Phone: [phone] Fluid GlucoseOctober 2024 12:15pmOctober 2024 12:15pm<2 mg/dL. : BODY FLUID TYPE : GLUCOSE [...] Pleural Fluid : 65 - 99 : :___ : : : Saliva : < 2 : : (Mixed Glands) : : : : : : Sweat : < 7 : : : : : Synovial Fluid : 65 - 99 : : : : : Tears : 76 - 288 : : : : Ida Powers V. Reference Intervals for Adults and Children 2007. Ninth edition (V9.1) [employer], [facility]; [place]: October 2008.Verified by repeat analysisPerformed at: [address] [id number] Director: Laurent Walker PhD, Phone: [phone]-Suubdlec Protein, QuantitativeOct2024 12:15pmOctober , 2024 12:15pm1.74 mg/dLAbove high normal<=0.50 Basophils # (Auto)February 24, 2025 12:15pmOctober 2024 12:15pm0.1 10 3/uL0.0-0.1Anion GapFebruary 24, 2025 12:15pmOctober 2024 12:15pm16.1 Erythrocyte Sedimentation RateOctober 2024 12:15pmOct2024 12:15pm14 mm/hr<=15Basophils (%) (Auto)February 24, 2025 12:15pmOctober 2024 12:15pm0.9 %0.2-2.0BUN/Creatinine RatioOct2024 12:15pmOctober 2024 12:15pm9.5Eosinophils # (Auto)February 24, 2025 12:15pmOctober 2024 12:15pm0.2 10 3/uL0.0-0.7Blood Urea NitrogenOct2024 12:15pm February 24, 2025 12:15pm7.0 mg/dL7.0-18.0Eosinophils (%) (Auto)February 24, 2025 12:15pmOctober 2024 12:15pm1.7 %0.9-7.0Calcium LevelOct2024 12:15pmOctober 2024 12:15pm9.4 mg/dL8.5-10.1HematocritOct2024 12:15pmOctober 2024 12:15pm53.6 %42.0-54.0Chloride LevelOctober 2024 12:15pmOctober 2024 12:36tr295 mmol/P62-791EycalurcxpZuvwbbi 30th, 2025 12:15pmOct2024 12:15pm18.4 g/dLAbove high okwjfh85.0-18.0Carbon Dioxide LevelOct2024 12:15pmOct2024 12:15pm26.0 mmol/L 21.0-32.0Immature Granulocyte # (Auto)February 24, 2025 12:15pmOctober 2024 12:15pm0.02 10 3/uL0.00-0.03CreatinineOct2024 12:15pmOctober 2024 12:15pm0.74 mg/dL0.70-1.30Immature Granulocyte % (Auto)February 24, 2025 12:15pmOctober 2024 12:15pm0.2 %0.0-0.5Estimated GFR ()February 24, 2025 12:15pmOctober 2024 12:15pm>60>=60 mL/min/1.73m 2Lymphocytes # (Auto)February 24, 2025 12:15pmOctober 2024 12:15pm2.6 10 3/uL1.2-3.8Estimated GFR (Non- AmericanOct2024 12:15pmOctober , 2024 12:15pm>60>=60 mL/min/1.73m 2Lymphocytes (%) (Auto) February 24, 2025 12:15pmOctober 2024 12:15pm25.9 %20.5-60.0Glucose Level February 24, 2025 12:15pmOctober 2024 12:32mp685 mg/rP05-768Akud Corpuscular HemoglobinOct2024 12:15pmOctober 2024 12:15pm31.4 pg25.9-34.0Potassium LevelOct2024 12:15pmOctober 2024 12:15pm 4.1 mmol/L3.5-5.1Mean Corpuscular Hemoglobin ConcentOct2024 12:15pm February 24, 2025 12:15pm34.3 g/dL29.9-35.2Sodium LevelOctober 2024 12:15pmOctober 2024 12:84yp653 mmol/Y640-613Khtn Corpuscular VolumeOctober 2024 12:15pmOctober 2024 12:15pm91.5 fL80.0-94.0Monocytes # (Auto) February 24, 2025 12:15pmOctober 2024 12:15pm1.0 10 3/uLAbove high normal 0.3-0.8Monocytes (%) (Auto)February 24, 2025 12:15pmOctober 2024 12:15pm 9.7 %1.7-12.0Mean Platelet VolumeOctober 2024 12:15pmOctober 2024 12:15pm10.5 fL9.5-13.5Neutrophils # (Auto)February 24, 2025 12:15pmOctober 2024 12:15pm6.1 10 3/uL1.4-6.5Neutrophils (%) (Auto)February 24, 2025 12:15pmOctober 2024 12:15pm61.6 %43.0-75.0Platelet CountOctober 2024 12:15pmOctober 2024 12:58mv700 10 3/vL220-781Vib Blood CountOctober 2024 12:15pmOctober 2024 12:15pm5.86 10 6/uL4.70-6.10Red Cell Distribution WidthOctober 2024 12:15pmOctober 2024 12:15pm13.0 %11.0-15.0 Corrected White Blood CountOctober 2024 12:15pmOctober 2024 12:15pm 9.9 10 3/uL4.0-11.0 Diagnostic Imaging Reports Author Ervin Andrade [facility] CenterAuthoredOctober 2024 9:47amReportDictated Date/TimeDictated ByStatusRadiology ReportOctober 2024 9:47amMarkaitlin Andrade II [facility]antompSum[facility] [place] [address] MRI Report Signed Patient: Tu Harrison I MR#: [id number] : 1995 Acct:[id number] Age/Sex: 29 / M ADM Date: 5 Loc: [facility] Room: Type: [facility] CLI Attending Dr: Luis Fonseca DO Copies [...] Andrade M.D. 02/15/2025 9:57 AM Dictation Location: RADIO-PC-27 Transcribed By: ADELITA 02/15/2557 Dictated By: Ervin Andrade II, MD 02/15/2547 Signed By: <Electronically signed by Ervin Andrade II, MD in OV> 02/15/2557 Vital Signs Vital Reading Result Reference Range Collection Date/Time Height 72 [in_i] February 02, 2025 12:16ifTlhcfm237.13 kgOct2024 12:02pmBody Hfwhdadlkky63.3 [degF]97.6-99.0October 2024 12:02pmHeart Rate95 /saw40-444 February 02, 2025 12:02pmOxygen saturation by Pulse yipjdxsv61 %95-100Oct2024 12:02pmBP Nrrnpjke360 mm[Hg]100-140Oct2024 12:02pmBP Drgyilfuj59 mm[Hg]60-100October 2024 12:02pmBMI (Body Mass Index)33.2 kg/m2 February 02, 2025 12:40ltJxizmx13 [in_i]February 17, 2025 9:24jnYhcmbj869.13 kg February 17, 2025 9:12amBMI (Body Mass Index)33.2 kg/l5Kpxcqbc2024 9:42ndNcexdq71 [in_i]March 01, 2025 1:15wgYoufrr173.94 kgNov2024 1:00pmHeart Rate86 /sio55-576Kdrkwffa 4th, 2025 1:00pmRespiratory rate14 /min 12-24Nov2024 1:00pmOxygen saturation by Pulse zcrjinpb44 %95-100 March 01, 2025 1:00pmBP Othlwaef243 mm[Hg]100-140Nov2024 1:00pmBP Feqgzqitl89 mm[Hg]60-100Nov2024 1:00pmBMI (Body Mass Index)33.7 kg/u8Cooihrng2024 1:00pm Advance Directives Advance Directive Response Recorded Date/ Time Advance Directives No February 21, 2025 10:26am Insurance Providers Guarantor Tuarsenio Harrison I Address [address] [place] [id number] Info.Home Phone: Coverage Status Update:2024 Payer Group Member ID Coverage Type Subscriber Relationship to Subscriber Effective Date Expiration Date MMO Id: [id number] Oates I Id: [id number] [address] [facility] [address] Home Phone: Email: [email or web address] Encounters Encounter Location(s) Arrival/Admit Date Discharge/Departure Date Discharge/Departure Disposition Provider(s) Departed Physician/ Provider Office Visit -[facility] February 02, 2025 1:00pm February 02, 2025 1:25pm Discharged to home care or self care (routine discharge) Allison Carr APRN CNP Departed Physician/ Provider Office Visit -[facility] February 03, 2025 12:08pm February 03, 2025 1:28pm Discharged to home care or self care (routine discharge) Luis Fonseca DO Departed Clinical -[facility] [address] Closed February 15, 2025 8:59am February 15, 2025 9:00am Discharged to home care or self care (routine discharge) Luis Fonseca DO Departed Physician/ Provider Office Visit -[facility] February 17, 2025 9:49am February 17, 2025 10:47am Discharged to home care or self care (routine discharge) uLis Fonseca DO Non-patient / Non-visit -[facility] ctober 2024 1:15pm Outside ProviderDeparted Physician/Provider Office Visit-[facility] March 01, 2025 1:00pmNov2024 1:30pmDischarged to home care or self care (routine discharge)Allison Carr APRN CNP Recent Diagnosis Onset Date Admit Date Right [...] 9:49am Plan of Treatment Author Allison Carr [facility] 2024 1:05pmDiscussed with pt due to the swelling and pain would refer for an ultrasound to rule out Blood clot. Will also obtain and x-ray of the knee due to swelling. Will call with results and further recommendations. If no blood clot will refer to ortho for further evaluation. Pt verbalzies understanding and agrees to plan of care. Author Rose Jones [facility] 2024 12:43pmAdvised removing some fluid from the right knee, [...] of norco for the uncontrollable pain. Author Luis Fonseca [facility] 2024 10:02amWe discussed exam findings, symptoms, and imaging and likely etiologies of the patient's pain. Patient continues to have symptoms in his knee and this has been going on for greater than 4 weeks. He got minimal relief from aspiration of his knee. MRI was reviewed with him and no significant pathology is found on imaging. There are some heterogeneous changes seen in the synovium especially in the suprapatellar pouch. We discussed possible etiologies including infectious, inflammatory. We did discuss a small possibility of PVNS. Given his symptoms not resolving and his range of motion and inflammation continues to be significant elevated, we did discuss proceeding with a diagnostic arthroscopy and synovial biopsy. We compared conservative management vs surgical intervention. The patient [...] Right Knee Arthroscopy with Synovial Biopsy. Antibiotics: Ancef DVT ppx: Aspirin 81mg BID x 2 weeks Same Day Surgery: Yes Bed: Regular OR bed Instruments needed: Basic arthroscopy, grasper for synovial biopsy Future Tests Future scheduled test information is unavailable Pending Tests Test Name Ordered Date Scheduled Date XR knee RT 3V - NOT FOR ER USE February 02, 2025 12:14pm US venous duplex LE RTOctober 2024 12:14pmCrystals,Synovial FluidOctober 2024 12:19pm Future Visits Future appointment information is unavailable Future Procedures Procedure Name Ordered Date Scheduled Date Body Fluid Culture February 03, 2025 12:19pm Cell Count&Diff,Synovial FluidOctober 2024 12:19pmGlucose, Synovial Fluid February 03, 2025 12:19pm Future Medications Future medication information is unavailable Patient Instructions Patient instructions are unavailable
[2025-03-03] VITALS (12 sets, daily range): BP systolic 114–148; BP diastolic 62–91; PULSE 75–109; TEMP 36.9–37.1; O2SAT 90–96; BMI 33.3
--- OUTSIDE RECORDS SUMMARY | 2025-03-03 11:34 | XMS_ITS | Encounter Summary ---
Author Organization [facility] Address [address] [facility] [place] [address] Care Team Providers Care Box Lining Machine Operator Name Role Phone Federico Galeana OTR/L, CHT Unavailable Unav ailable Prisca Caballero OTR/L, CHT Unavailable [phone] Reason for Visit * ReasonCommentsRefill Encounter Details DateTypeDepartmentCare Team (Latest Contact Info)Hddnkkoqhny09/01/2025Refill [facility] Plastic Surgery [address] [place] [phone] Charlene Nick PA-C [address] [place], [place] [id number] Refill Social History Tobacco UseTypesPacks/DayYears UsedDateSmoking Tobacco: Every DayCigarettes Smokeless Tobacco: Never Comments:Cutting down to 1-2 cigs a day ( 05/2024) SS Alcohol UseStandard Drinks/WeekCommentsYes0 (1 standard drink = 0.6 oz pure alcohol)daily 2-3 mixed drinks after workSubstance UseTypesUse/WeekCommentsNot CurrentlySex and Gender InformationValueDate RecordedSex Assigned at BirthNot on fileLegal QxfKmpe0405/30/2024 12:12 AM ESTGender IdentityNot on fileSexual OrientationNot on filedocumented as of this encounter Plan of Treatment Not on file documented as of this encounter Visit Diagnoses Not on filedocumented in this encounter Care Teams Team MemberRelationshipSpecialtyStart DateEnd Date Federico Galeana, OTR/L, CHT [address] [facility] [place] [address] Occupational TherapistOccupational Therapy06/26/24 Prisca Caballero, OTR/L, CHT [address] [place] [address] [address] [place] [phone] Occupational TherapistOccupational Therapy06/26/24documented as of this encounter
--- OUTSIDE RECORDS SUMMARY | 2025-03-03 11:34 | XMS_ITS | Clinical Summary ---
Author Organization [facility] Address [address] [place] [address] Care Team Providers Care Fountain Supervisor Name Role Phone Nilaynaldonasir Federico OTR/L, CHT Unavailable Unav ailable Prisca Caballero OTR/L, CHT Unavailable [phone] Source Comments The following information is NOT included in Care Everywhere downloads:Psychiatric notes, ECG results, Cardiac Rehab notes, Pulmonary Function notes, data from [employer] (includes but not limited toPregnancy data,audiograms, eye exams, pre-surgical evaluation notes, well-child exam data).[facility] Allergies No known active allergies Medications MedicationSigDispense [...] DateDiagnosed DateAmputation, finger, /21/2025Impaired function of upper ndejhevtq37/18/2025Current hdkmhf7506/01/2024 Overview (06/01/2024): Comment on above: Added secondary to documentation in Social History. Gouty arthritis of right ankle06/01/2024Hand laceration involving tendon, right, subsequent lmmewtcsk13/02/2025 Assessment & Plan (06/02/2024 1:33 PM EST): - Dressings removed. - Discussed upcoming surgery, risks, benefits, prognosis, and outcomes. - Dressings placed today: bacitracin, adaptic, gauze, PHU. - OT today for splinting. Maintain splint until surgery. - Pain medication refilled. - Follow up one week post operatively. Open fracture of middle phalanx of binzid6505/29/2024Fracture of cervical vertebra 03/14/2016 Encounters DateTypeDepartmentCare UbfkBaviggmuufd42/01/2025Refill [facility] [address] [place] [address] Charlene Nick PA-C Refillfrom Last 3 Months Immunizations ImmunizationAdministration DatesNext DueDTaP, unspecified formulation (YWD=211) 08/08/1999,06/28/1998,05/03/1998,02/22/1998Hep B (peds/adol, 3-dose) (CVX=08) 05/03/1998,1997Hib (PRP-OMP) (CVX=49)08/08/1999,06/28/1998,05/03/1998, 02/22/1998MMR, Hemkfhq-Dxaoe-Ycuylxe (CVX=03)08/08/1999Polio, inactivated (IPV) (CVX=10)08/08/1999,05/03/1998,02/22/1998Tdap (BYB=249)05/29/2024 Social History Tobacco UseTypesPacks/DayYears UsedDateSmoking Tobacco: Every DayCigarettes Smokeless Tobacco: Never Tobacco Cessation:Counseling Given: Yes Comments:Cutting down to 1-2 cigs a day ( 05/2024) SS Alcohol UseStandard Drinks/WeekCommentsYes0 (1 standard drink = 0.6 oz pure alcohol)daily 2-3 mixed drinks after workSubstance UseTypesUse/WeekCommentsNot CurrentlySex and Gender InformationValueDate RecordedSex Assigned at BirthNot on fileLegal DkkFnkk5305/30/2024 12:12 AM ESTGender IdentityNot on fileSexual OrientationNot on file Last Filed Vital Signs Vital SignReadingTime TakenCommentsBlood Itrtlldl581/9607/23/2024 3:00 PM EDT Hgbju545907/23/2024 3:00 PM RTENpkluytcgsk99.2 ??C (97.1 ??F)07/23/2024 2:25 PM EDTRespiratory Qxcr349107/23/2024 3:00 PM EDTOxygen Bwufsvbvkm09%07/23/2024 3:00 PM EDTInhaled Oxygen Concentration--Yojoux252.4 kg (250 lb)07/23/2024 12:31 PM PMMWczsra107.9 cm (6')07/23/2024 12:31 PM EDTBody Mass Index33.9107/23/2024 12:31 PM EDT Plan of Treatment Health MaintenanceDue DateLast DoneCommentsHepatitis B (HBV) Vaccine (3 of 3 - 3-dose series), 1997HIV Test2012Hepatitis C Xytrnnwj70/18/2016Hepatitis A (HAV) Vaccine (optional start 19+ years)2016 Pneumococcal Vaccine(s) (1 of 2 - PCV)2016HPV Vaccine (optional start 27- 45 years)5COVID-19 Vaccine (1 - 2024- season)2024Influenza Vaccine (#1)2024Tetanus (Td or Tdap) Yxbaact02/01/07393105/29/2024Shingles (RZV) Vaccine (1 of 2)09/13/2047Tdap RivsktgNqhoecckz43/01/2025 Medical Devices ExplantedTypeAreaManufacturerDevice IdentifierShelf Expiration DateModel / Serial / LotK Wire Christopher 2 Pnt 4in .035 Bx6 [id number] - [id number] Implanted:Qty: 1 on 06/09/2024 by Cely Strauss MD at INPATIENT DEPARTMENTS Explanted:Qty: 1 on 07/23/2024 by Cristopher Kaur DMD, MD at INPATIENT DEPARTMENTSImplant WireRight: [employer] and [id number] / / [id number] Wire Christopher 2 Pnt 4in .035 Bx6 [id number] - [id number] Implanted:Qty: 1 on 06/09/2024 by Cely Strauss MD at INPATIENT DEPARTMENTS Explanted:Qty: 1 on 07/23/2024 by Emelina Diego DO at INPATIENT DEPARTMENTSImplant WireRight: [employer] and [id number] / / [id number] Wire Christopher 2 Pnt 4in .035 Bx6 [id number] - [id number] Implanted:Qty: 1 on 06/09/2024 by Cely Strauss MD at INPATIENT DEPARTMENTS Explanted:Qty: 1 on 07/23/2024 by Emelina Diego DO at INPATIENT DEPARTMENTSImplant WireRight: [employer] and [id number] / / [id number] Wire Christopher 2 Pnt 4in .035 Bx6 [id number] - [id number] Implanted:Qty: 1 on 06/09/2024 by Cely Strauss MD at INPATIENT DEPARTMENTS Explanted:Qty: 1 on 07/23/2024 by Emelina Diego DO at INPATIENT DEPARTMENTSImplant WireRight: [employer] and [id number] / / [id number] Wire Christopher 2 Pnt 4in .035 Bx6 [id number] - [id number] Implanted:Qty: 1 on 06/09/2024 by Cely Strauss MD at INPATIENT DEPARTMENTS Explanted:Qty: 1 on 07/23/2024 by Emelina Diego DO at INPATIENT DEPARTMENTSImplant WireRight: [employer] and [id number] / [id number] Insurance Care Teams Team MemberRelationshipSpecialtyStart DateEnd Date Federico Galeana, OTR/L, CHT [address] [place] [address] Occupational TherapistOccupational Therapy06/26/24 Prisca Caballero OTR/L, CHT [address] [place] [address] Occupational TherapistOccupational Therapy06/26/24
--- OUTSIDE RECORDS SUMMARY | 2025-03-03 11:34 | XMS_ITS | Clinical Summary ---
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 Phone Unavailable Primary Care Provider Unavailabl e Allergies No known active allergies Medications No known medications Active Problems No known active problems Social History Tobacco UseTypesPacks/DayYears UsedDateSmoking Tobacco: Every DayCigarettes Smokeless Tobacco: Never Tobacco Cessation:Ready to Q uit: No; Counseling Given: Yes PHQ-2AnswerDate RecordedPHQ-9 Total Xdqxk117Sex and Gender Information ValueDate RecordedSex Assigned at BirthNot on fileLegal WgzQfto6211/10/2019 1:46 PM EDTGender IdentityNot on fileSexual OrientationNot on file Last Filed Vital Signs Vital SignReadingTime TakenCommentsBlood Khxwuiwa706/9225811/10/2019 2:06 PM EDT Mryiq5011/15/2020 2:06 PM EDTTemperature--Respiratory Rate--Oxygen Saturation-- Inhaled Oxygen Concentration--Jwiwxg499.7 kg (266 lb)11/10/2019 2:06 PM EDT Eneyid704.9 cm (6')11/10/2019 2:06 PM EDTBody Mass Index36.0811/10/2019 2:06 PM EDT Plan of Treatment Not on file
--- OUTSIDE RECORDS SUMMARY | 2025-03-03 11:34 | XMS_ITS | Clinical Summary ---
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 Phone Unavailable Primary Care Provider Unavailabl e Social History Tobacco UseTypesPacks/DayYears UsedDateSmoking Tobacco: Never AssessedSex and Gender InformationValueDate RecordedSex Assigned at BirthNot on fileLegal Sex Male07/10/2022 6:42 PM EDTGender IdentityNot on fileSexual OrientationNot on file Last Filed Vital Signs Vital SignReadingTime TakenCommentsBlood Pressure--Pulse--Temperature-- Respiratory Rate--Oxygen Saturation--Inhaled Oxygen Concentration--Eyiioj336 kg (232 lb)08/22/2021 12:00 PM QSCYfkbbu334.3 cm (5' 11 )08/22/2021 12:00 PM EDT Body Mass Index32.36008/22/2021 12:00 PM EDT Plan of Treatment Not on file Insurance
--- OUTSIDE RECORDS SUMMARY | 2025-03-03 11:36 | XMS_ITS | CCD ---
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 17-67-9714VodrdpfdKvmnjgougfe; intervertebral disc disorders; other back problems (1 source)Cervicalgia; Translations: [CERVICALGIA]Onset: 70-54-4664Dqneuekc Results Test NameValueInterpretationReference RangeFacilityBasophils Auto (Bld) [#/Vol] Ordered By: Outside Provider on 75-11-8896Ybmlaxppf (Bld) [#/Vol]0.1 10 3/uL 0.0-0.1FUniversity Hospitals Elyria Medical CenterBasophils/100 WBC Auto (Bld)Ordered By: Outside Provider on 26-87-5658Lrpivfgbj/100 WBC (Bld)0.9 %0.2-2.0[facility] HospitalEosinophils/100 WBC Auto (Bld)Ordered By: Outside Provider on 50-22-9728Ptzgvxjbawk/100 WBC (Bld)1.7 %0.9-7.0[facility] HospitalErythrocyte distribution width Auto (RBC) [Ratio]Ordered By: Outside Provider on 14-80-6146Zsanyuknnwm distribution width (RBC) [Ratio]13.0 % 11.0-15.0[facility] HospitalGlomerular filtration rate (GFR) estimation in non- AmericanOrdered By: Outside Provider on 02-24-2025 GFR/1.73 sq M.predicted among non-blacks MDRD (S/P/Bld) [Vol rate/Area] mL/min/{1.73_m2}>=60 mL/min/1.73m 2FUniversity Hospitals Elyria Medical CenterHematocrit Auto (Bld) [Volume fraction]Ordered By: Outside Provider on 59-61-3899Bhjbjoejni (Bld) [Volume fraction]53.6 %42.0-54.0[facility] Hemoglobin [Mass/volume] in BloodOrdered By: Outside Provider on 02-24-2025 Hemoglobin (Bld) [Mass/Vol]18.4 g/zBLzte42.0-18.0[facility] HospitalLaboratory - Chemistry and Chemistry - challengeOrdered By: Outside Provider on 93-99-5419Fmbqauv [Mass/Vol]9.4 mg/dL8.5-10.1FUniversity Hospitals Elyria Medical CenterChloride [Moles/Vol]104 mmol/C45-210TmvviouagPike Community HospitalCO2 [Moles/Vol]26.0 mmol/L21.0-32.0[facility] Creatinine [Mass/Vol]0.74 mg/dL0.70-1.30[facility] GFR/1.73 sq M.predicted MDRD (S/P/Bld) [Vol rate/Area]mL/min/{1.73_m2}>=60 mL/min/1.73m 2FUniversity Hospitals Elyria Medical CenterGlucose [Mass/Vol]105 mg/eB26-068 [facility] HospitalPotassium [Moles/Vol]4.1 mmol/L3.5-5.1FKing's Daughters Medical Center Ohioodium [Moles/Vol]142 mmol/F050-197IcpnscqxbPike Community HospitalUrea nitrogen [Mass/Vol]7.0 mg/dL7.0-18.0[facility] HospitalUrea nitrogen/Creatinine [Mass ratio]9.5 mg/mgPike Community HospitalLaboratory - Hematology and Cell countsOrdered By: Outside Provider on 77-64-1754ADY (Bld) [Velocity]14 mm/h<=15[facility] HospitalImmature granulocytes/100 WBC (Bld)0.2 %0.0-0.5FUniversity Hospitals Elyria Medical CenterLeukocytes [#/volume] corrected for nucleated erythrocytes in Blood by Automated counOrdered By: Outside Provider on 26-44-2065HPC corrected for nucl RBC Auto (Bld) [#/Vol]9.9 10 3/uL4.0-11.0[facility] Lymphocytes Auto (Bld) [#/Vol]Ordered By: Outside Provider on 02-24-2025 Lymphocytes (Bld) [#/Vol]2.6 10 3/uL1.2-3.8[facility] Lymphocytes/100 WBC Auto (Bld)Ordered By: Outside Provider on 02-24-2025 Lymphocytes/100 WBC (Bld)25.9 %20.5-60.0[facility] ColumbusH Auto (RBC) [Entitic mass]Ordered By: Outside Provider on 65-62-5620JRE (RBC) [Entitic mass]31.4 pg25.9-34.0[facility] HospitalMCHC Auto (RBC) [Mass/Vol]Ordered By: Outside Provider on 89-34-3610RLCN (RBC) [Mass/Vol]34.3 g/dL29.9-35.2FUniversity Hospitals Elyria Medical CenterMCV Auto (RBC) [Entitic vol] Ordered By: Outside Provider on 41-22-6068YOG (RBC) [Entitic vol]91.5 fL 80.0-94.0[facility] HospitalMonocytes Auto (Bld) [#/Vol]Ordered By: Outside Provider on 34-08-5094Hkfzxbxzn (Bld) [#/Vol]1.0 10 3/uLHigh0.3-0.8 [facility] HospitalMonocytes/100 WBC Auto (Bld)Ordered By: Outside Provider on 64-96-7994Aejsyewuq/100 WBC (Bld)9.7 %1.7-12.0[facility] HospitalNeutrophils Auto (Bld) [#/Vol]Ordered By: Outside Provider on 60-23-3871Huejhmccmyi (Bld) [#/Vol]6.1 10 3/uL1.4-6.5FUniversity Hospitals Elyria Medical CenterNeutrophils/100 WBC Auto (Bld)Ordered By: Outside Provider on 02-24-2025 Neutrophils/100 WBC (Bld)61.6 %43.0-75.0[facility] HospitalNo Panel InformationOrdered By: Outside Provider on 19-89-7489W-Reactive Protein, Quantitative1.74 mg/dLHigh<=0.50[facility] HospitalEosinophils # (Auto)0.2 10 3/uL0.0-0.7FUniversity Hospitals Elyria Medical CenterImmature Granulocyte # (Auto)0.02 10 3/uL0.00-0.03[facility] HospitalPlatelet mean volume Auto (Bld) [Entitic vol]Ordered By: Outside Provider on 27-49-7943Rbcxrukd mean volume (Bld) [Entitic vol]10.5 fL9.5-13.5FUniversity Hospitals Elyria Medical Center Platelets Auto (Bld) [#/Vol]Ordered By: Outside Provider on 86-18-2279Epspmdmnf (Bld) [#/Vol]229 10 3/lZ919-843TizaziqbuPike Community HospitalRBC Auto (Bld) [#/Vol]Ordered By: Outside Provider on 99-49-5496SWU (Bld) [#/Vol]5.86 10 6/uL 4.70-6.10[facility] Medical Centererum or plasma anion gap determinationOrdered By: Outside Provider on 61-83-4527Toxbv gap [Moles/Vol]16.1 mmol/LFUniversity Hospitals Elyria Medical CenterMR knee RT wo conon 69-76-3152[place] [address] MRI Report Signed Patient: Tu Casiano I MR#: [id number] : 1995 Acct:[id number] Age/Sex: 29 / M ADM Date: 02/15/25 [facility] CLI Attending Dr: Luis Fonseca [...] Andrade M.D. 02/15/2025 9:57 AM Dictation Location: [place] [address] Transcribed By: [facility] 02/15/25 0957 Dictated By: Steven Andrade II, MD 02/15/25 0947 Signed By: 02/15/25 0957[facility] Physician GroupMagnetic resonance imaging reportOrdered By: Steven Andrade on 51-55-8092Iyaei reportBER[facility] [place] [address] [place] [address] MRI Report Signed Patient: Tu Casiano I MR#: [id number] : 1995 Acct:[id number] Age/Sex: 29 / M ADM Date: 5 Loc: [facility] Room: Type: [facility] Attending Dr: Luis Fonseca DO Copies to: [...] Andrade M.D. 02/15/2025 9:57 AM Dictation Location[facility] Transcribed By: ADELITA 02/15/25956 Dictated By: Steven Andrade II, MD 02/15/25946 Signed By: 02/15/25956 [facility] Work Phone: no Panel InformationOrdered By: Outside Provider on 44-70-5310Txdr Fluid Glucose<2 mg/dL.[facility] HospitalComment on above: : BODY FLUID TYPE [...] Reference Intervals for Adults and Children 2008. [facility] edition (V9.1) [employer], [facility]; [place]: October 2008.Verified by repeat analysisPerformed at: [address] [id number] Director: Laurent Walker PhD, Phone: [phone] TestCOMMENT.[facility] HospitalComment on above:Test Ordered: 812254 Cell Ct, Synovial w/CrystalsColor, Fluid Yellow CB Reference Range: YellowClarity, Fluid Cloudy [A ] CB Reference Range: ClearNucleated Cells, [place] [address] [H ] cells/uL CB Reference Range: 0-200RBC, Fluid 6000 /uL CB Reference Range: Not Estab.Neut, Fluid 99 % CB Reference Range: Not Estab.Lymphocytes, Fluid 1 % CB Reference Range: Not Estab.Macrophages 0 % CB Reference Range: Not Estab.Eosinophils, Fluid 0 % CB Reference Range: Not Estab.Lining Cells, Synovial [employer] Reference Range: .Crystal,Synovial/Joint Fl Comment CB Reference Range: None seenNo crystals seen under normal or polarized light.Comments: [employer] Reference Range: .Performed at: [facility] [employer] [id number] Director: Laurent Walker PhD, Phone: [phone] CBC Without Diffon 68-74-5880Rmisopxexxd distribution width (RBC) [Ratio]14.2 % Uacjcs45.0-14.8The [facility] Physician GroupComment on above:Performed By: #### RENAL, CBCNO #### [facility] [address] [place] [address] USAHematocrit (Bld) [Volume fraction]48.6 %Mqoeze42.8-50.0The [facility] MadisonComment on above:Performed By: #### RENAL, CBCNO #### [facility] [address] [place] [address] USAHemoglobin (Bld) [Mass/Vol]16.6 g/cUXghpog02.0-17.0The Acmh HospitalComment on above:Performed By: #### RENAL, CBCNO #### [facility] [address] (RBC) [Entitic mass]32.2 byQlgtdh90.5-35.2The [facility] Physician GroupComment on above:Performed By: #### RENAL, CBCNO #### [address]V (RBC) [Entitic vol]94.2 bSSlonuq44.5-101The [facility] Physician GroupComment on above:Performed By: #### RENAL, CBCNO #### [place] [address] USAMean Corpuscular HGB Conc34.2 g/yLFjnohv33.5-35.6The [facility] Physician GroupComment on above:Performed By: #### RENAL, CBCNO #### [place] [address] USAPlatelet mean volume (Bld) [Entitic vol]9.9 fLNormal 6.6-10.1The [facility] Physician GroupComment on above:Result Comment: PERFORMED BY: [place] [address] PATHOLOGIST REHABILITATION AIDE VARUN ARGUETA M.D.Performed By: #### RENAL, CBCNO #### [place] [address] USAPlatelets (Bld) [#/Vol]160 10*3/nOAvsckm266-940Lmf [facility] Physician GroupComment on above:Performed By: #### RENAL, CBCNO #### [place] [address] USARBC (Bld) [#/Vol]5.16 10*6/uLNormal3.90-5.60The [facility] Physician GroupComment on above:Performed By: #### RENAL, CBCNO #### [place] [address] USAWhite Blood Count12.9 [CFU]/mLHigh4.1-10.5The [facility] Physician GroupComment on above:Performed By: #### RENAL, CBCNO #### [address] [place] [address] USAMetanephrine Urine Randomon 74-93-6150Phfwqsaoon, Random Ur101.5 mg/dLNormalNot Estab.The [facility] Physician GroupComment on above: Performed By: #### MG, BMP #### [address] [address] USAMetanephrine Random Rydhu123OuvvgmVnxpkwyhoStl [facility] MadisonComment on above:Result Comment: This test was developed and its performance characteristics determined by [facility]. It has not been cleared or approved by the Food and Drug Administration.Performed By: #### MG, BMP #### [place] [id number] USAMetanephrine/Creatinine Ratio0.5Noqxfs0.0-1.0The [facility] Physician GroupComment on above:Result Comment: Result Units: ug/mg Creat Performed at: [facility] [address] [id number] Hydro Technician: Ata Fletcher MD, Phone: [phone] By: #### MG, BMP #### [address] [address] USANormetanephrine Random Ocetr666GzzctpGjzwoeifiCvo [facility] MadisonComment on above:Result Comment: This test was developed and its performance characteristics determined by [facility]. It has not been cleared or approved by the Food and Drug Administration. PERFORMED BY: [place] [address] PATHOLOGIST REHABILITATION AIDE VARUN ARGUETA M.D.Performed By: #### MG, BMP #### [place] [id number] USAPartial Thromboplastin Timeon 48-91-6449nPEY Coag (Bld) [Time]29.8 nMshuvs87.1-36.5The [facility] Physician GroupComment on above:Result Comment: A hematocrit value greater than 55% may lead to inaccurate results in coagulation testing. Patients having hematocrit values >55% require a special collection tube for coagulation studies. Please contact the laboratory at [phone] for redraw instructions. PERFORMED BY: [place] [address] PATHOLOGIST REHABILITATION AIDE VARUN ARGUETA M.D.Performed By: #### PTT, PT #### [place] [address] USAProthrombin Time INRon 83-24-6927ODC Coag (PPP) [Relative time]0.9 {INR}NormalThe [facility] Physician GroupComment on above:Result Comment: INR Therapeutic [...] - 4.5Performed By: #### PTT, PT #### [place] [address] USAPT Coag (PPP) [Time]10.2 sNormal9.0-12.9The [facility] Physician GroupComment on above:Result Comment: A hematocrit value greater than 55% may lead to inaccurate results in coagulation testing. Patients having hematocrit values >55% require a special collection tube for coagulation studies. Please contact the laboratory at [phone] for redraw instructions.Performed By: #### PTT, PT #### [place] [address] USARenal Function Panelon 36-07-1421Wwmyats [Mass/Vol]3.7 g/dLNormal3.5-5.7The [facility] Physician GroupComment on above:Performed By: #### RENAL, CBCNO #### [place] [address] USAAnion gap [Moles/Vol]10.8 mmol/LNormal6.0-15.0The Acmh HospitalComment on above:Performed By: #### RENAL, CBCNO #### [place] [address] USACalcium [Mass/Vol]9.0 mg/dLNormal8.6-10.3The [facility] Physician GroupComment on above:Performed By: #### RENAL, CBCNO #### [facility] [address] [place] [address] USAChloride [Moles/Vol]105 mmol/USznkuh90-087Swk [facility] MadisonComment on above:Performed By: #### RENAL, CBCNO #### [facility] [address] [place] [address] USACO2 [Moles/Vol]27.9 mmol/MDhpxwk10.0-31.0The [facility] Physician GroupComment on above:Performed By: #### RENAL, CBCNO #### [facility] [address] [place] [address] USACreatinine [Mass/Vol]0.94 mg/dLSignificant change down 0.70-1.30The [facility] Physician GroupComment on above:Performed By: #### RENAL, CBCNO #### [facility] [address] [place] [address] USACreatinine Clr Calc Arwhfuba168.74NormalThe [facility] Physician GroupComment on above:Result Comment: PERFORMED BY: [place] [address] PATHOLOGIST REHABILITATION AIDE VARUN ARGUETA M.D.Performed By: #### RENAL, CBCNO #### [facility] [address] [place] [address] USAGFR/1.73 sq M.predicted MDRD (S/P/Bld) [Vol rate/Area] mL/min/{1.73_m2}NormalThe [facility] GroupComment on above:Performed By: #### RENAL, CBCNO #### [facility] [address] [place] [address] USAGlucose [Mass/Vol]96 mg/kCSrakar98-085Uym [facility] Physician GroupComment on above:Result Comment: Random Glucose Reference Range is dependent on time and content of last meal. Glucose of more than 200 mg/dL in a nonstressed, ambulatory subject supports the diagnosis of Diabetes Mellitus. ADA recommended reference rangePerformed By: #### RENAL, CBCNO #### [facility] [address] [place] [address] USAPhosphate [Mass/Vol]4.1 mg/dLNormal2.5-4.5The [facility] Physician GroupComment on above:Performed By: #### RENAL, CBCNO #### [facility] [address] [place] [address] USAPotassium [Moles/Vol]3.7 mmol/LNormal3.5-5.1The [facility] Physician GroupComment on above:Performed By: #### RENAL, CBCNO #### [facility] [address] [place] [address] USASodium [Moles/Vol]140 mmol/AUrktxd434-307Wwn [facility] Physician GroupComment on above:Performed By: #### RENAL, CBCNO #### [facility] [address] [place] [id number] USAUrea nitrogen [Mass/Vol]17 mg/dLNormal7-25The [facility] Physician GroupComment on above:Performed By: #### RENAL, CBCNO #### [facility] [address] [place] [id number] USAUS renal doppler limited 84-33-0038EB renal doppler [facility] [place] [address] [place] [address] Ultrasound Report Signed Patient: Tu Casiano I MR#: [id number] : 1995 Acct:[id number] Age/Sex: 29 / M ADM Date: 10/23/24 Loc: Room: [address] [place] [address] Type: DIS IN Attending Dr: Poli Florentino MD Ordering Provider: Lydia Rajan DO, RES Date of Service: 10/23/24 US/US renal doppler limited: Hypertension Copies to: Lydia Rajan DO, RES Obaydah M Daromar, MD Renal artery duplex examination performed using B-mode, color flow and spectral Doppler assessment. (CPT: 35294) INDICATION: FINDINGS: Aorta: PSV 92.5 cm/s Right [...] Jacobs MD,FACS,FSVS 10/25/2024 11:29 AM Dictation Location: [place] [address] Tech: Alka Ronnie Transcribed By: [facility] 10/25/24 1129 Dictated By: Kenji Jacobs MD 10/25/24 1128 Signed By: 10/25/24 [facility] Physician GroupUrine Cultureon 10-25-2024 Bacteria identified Cx Nom (U)<9,000 colonies/ml mixed bacterial skin contaminants 2 Days PERFORMED BY: [place] [address] PATHOLOGIST REHABILITATION AIDE VARUN ARGUETA M.D.NormalThe [facility] MadisonComment on above: Performed By: #### CUU #### [place] [address] USAANA with Reflexon 76-69-9424ITU with ReflexNegativeNormal NegativeThe Acmh HospitalComment on above:Result Comment: Performed at: - Lab[address] [id number] Hydro Technician: Laurent Walker PhD, Phone: [phone] PERFORMED BY: [place] [address] PATHOLOGIST REHABILITATION AIDE VARUN ARGUETA M.D.Performed By: #### MG, BMP #### [place] [address] USAANCA Profile (ANCA+MPO+PR3)on 10-24-2024 Antimyeloperoxidase (MPO) Abs<0.7Qqapse6.0-0.9The [facility] Comment on above:Performed By: #### MG, BMP #### [place] [address] USAAtypical pANCA<1:20NormalNeg:<1:20The [facility] Physician GroupComment on above:Result Comment: The atypical pANCA pattern has been observed in a significant percentage of patients with ulcerative colitis, primary sclerosing cholangitis and autoimmune hepatitis. Performed at: - [facility] [id number] Hydro Technician: Ata Fletcher MD, Phone: [phone] Performed at: - [facility] [id number] Hydro Technician: Laurent Walker PhD, Phone: [phone] By: #### MG, BMP #### [place] [address] USACytoplasmic (C-ANCA)<1:20NormalNeg:<1:20The [facility] Physician GroupComment on above:Performed By: #### MG, BMP #### [place] [address] USAPerinuclear (P-ANCA)<1:20NormalNeg:<1:20The [facility] Physician GroupComment on above:Result Comment: The presence [...] Pathol 1999;111:507-513.Performed By: #### MG, BMP #### [place] [id number] USAProteinase 3 (PR3) Antibodies<0.6Qhuged4.0-0.9The [facility] Physician GroupComment on above:Result Comment: PERFORMED BY: [place] [address] PATHOLOGIST REHABILITATION AIDE VARUN ARGUETA M.D.Performed By: #### MG, BMP #### [place] [address] USAAldosteroneon 20-74-5416Lszguyypyvl<1.4Hzzgst7.0-30.0The [facility] Physician GroupComment on above:Result Comment: This test was developed and its performance characteristics determined by [facility]. It has not been cleared or approved by the Food and Drug Administration. Performed at: [address] [id number] Hydro Technician: Ata Fletcher MD, Phone: [phone] PERFORMED BY: [place] [address] PATHOLOGIST REHABILITATION AIDE VARUN ARGUETA M.D.Performed By: #### MG, BMP #### [place] [address] USAC-Reactive Proteinon 74-73-1764R-Reactive Protein0.9 mg/dL High0.0-0.5The [facility] Physician GroupComment on above:Result Comment: PERFORMED BY: [place] [address] PATHOLOGIST REHABILITATION AIDE VARUN ARGUETA M.D.Performed By: #### MG, BMP #### [place] [address] USAComplete Blood Count Auto Diffon 19-40-9865Lyxegjzed (Bld) [#/Vol]0.2 10*3/uLNormal0.0-0.2The [facility] Physician GroupComment on above: Performed By: #### MG, BMP #### [place] [address] USABasophils/100 WBC (Bld)1.3 %Normal.The [facility] Physician GroupComment on above:Performed By: #### MG, BMP #### [place] [address] USAEosinophils (Bld) [#/Vol]0.1 10*3/uLNormal0.0-0.45The [facility] Physician GroupComment on above:Performed By: #### MG, BMP #### [facility] [address] [place] [address] USAEosinophils/100 WBC (Bld)1.1 %Normal.The [facility] Physician GroupComment on above:Performed By: #### MG, BMP #### [place] [address] USAErythrocyte distribution width (RBC) [Ratio]15.0 %High 12.0-14.8The [facility] Physician GroupComment on above:Performed By: #### MG, BMP #### [place] [address] USAHematocrit (Bld) [Volume fraction]48.8 %Rvchpl64.8-50.0The [facility] Physician GroupComment on above:Performed By: #### MG, BMP #### [place] [address] USAHemoglobin (Bld) [Mass/Vol]16.5 g/hXEjptad05.0-17.0The [facility] Physician GroupComment on above:Performed By: #### MG, BMP #### [place] [address] USALymphocytes (Bld) [#/Vol]3.1 10*3/uLNormal1.00-4.8The [facility] Physician GroupComment on above:Performed By: #### MG, BMP #### [place] [address] USALymphocytes/100 WBC (Bld)27.1 %Normal.The [facility] Physician GroupComment on above:Performed By: #### MG, BMP #### [place] [address] USAMCH (RBC) [Entitic mass]31.8 oaLrrwun15.5-35.2The [facility] Physician GroupComment on above:Performed By: #### MG, BMP #### [facility] [address] [place] [address] USAMCV (RBC) [Entitic vol]94.5 nBEwgbgh71.5-101The [facility] Physician GroupComment on above:Performed By: #### MG, BMP #### [facility] [address] [place] [address] USAMean Corpuscular HGB Conc33.7 g/pIRoeuap83.5-35.6The [facility] Physician GroupComment on above:Performed By: #### MG, BMP #### [place] [address] USAMonocytes (Bld) [#/Vol]1.3 10*3/uLHigh0.0-0.8The [facility] Physician GroupComment on above:Performed By: #### MG, BMP #### [place] [address] USAMonocytes/100 WBC (Bld)11.3 %Normal.The [facility] Physician GroupComment on above:Performed By: #### MG, BMP #### [place] [address] USANeutrophils (Bld) [#/Vol]6.9 10*3/uLNormal1.8-7.7The [facility] Physician GroupComment on above:Performed By: #### MG, BMP #### [place] [address] USANeutrophils/100 WBC (Bld)59.2 %Normal.The [facility] Physician GroupComment on above:Performed By: #### MG, BMP #### [facility] [address] [place] [address] USANRBC%0.1 /100{WBC}Normal0-0.5The [facility] Comment on above:Performed By: #### MG, BMP #### [place] [address] USAPlatelet mean volume (Bld) [Entitic vol]10.0 fLNormal 6.6-10.1The [facility] Physician GroupComment on above:Performed By: #### MG, BMP #### [facility] [address] [place] [address] USAPlatelets (Bld) [#/Vol]151 10*3/kVPaiful094-377Iwm [facility] Physician GroupComment on above:Performed By: #### MG, BMP #### [place] [address] USARBC (Bld) [#/Vol]5.17 10*6/uLNormal3.90-5.60The [facility] Physician GroupComment on above:Performed By: #### MG, BMP #### [place] [address] USAWBC (Bld) [#/Vol]11.6 10*3/uLHigh4.1-10.5The [facility] Physician GroupComment on above:Performed By: #### MG, BMP #### [place] [address] USAWhite Blood Count11.6 [CFU]/mLHigh4.1-10.5The [facility] Physician GroupComment on above:Performed By: #### MG, BMP #### [place] [address] USAComprehensive Metabolic Panelon 32-54-5178Swyaxpb [Mass/Vol]3.7 g/dLNormal3.5-5.7The [facility] Physician GroupComment on above: Performed By: #### MG, BMP #### [place] [address] USAAlbumin/Globulin [Mass ratio]1.5 {ratio}NormalThe [facility] Physician GroupComment on above:Performed By: #### MG, BMP #### [place] [address] USAALP [Catalytic activity/Vol]65 U/YOxbszp28-920Hqk [facility]ician GroupComment on above:Performed By: #### MG, BMP #### [address] [address] USAALT [Catalytic activity/Vol]35 U/LNormal7-52The [facility] Physician GroupComment on above:Performed By: #### MG, BMP #### [place] [address] USAAnion gap [Moles/Vol]9.8 mmol/LNormal6.0-15.0The [facility] Physician GroupComment on above:Performed By: #### MG, BMP #### [facility] [address] [place] [address] USAAST [Catalytic activity/Vol]35 U/CTvcmoi05-70Ktc [facility] Physician GroupComment on above:Performed By: #### MG, BMP #### [facility] [address] [place] [address] USABilirubin [Mass/Vol]0.6 mg/dLNormal0.3-1.0The [facility] Physician GroupComment on above:Performed By: #### MG, BMP #### [facility] [address] [place] [address] USACalcium [Mass/Vol]8.9 mg/dLNormal8.6-10.3The [facility] Physician GroupComment on above:Performed By: #### MG, BMP #### [facility] [address] [place] [address] USAChloride [Moles/Vol]103 mmol/LMndijq30-146Xri [facility] Physician GroupComment on above:Performed By: #### MG, BMP #### [facility] [address] [place] [address] USACO2 [Moles/Vol]28.7 mmol/BFyuaiw12.0-31.0The [facility] Physician GroupComment on above:Performed By: #### MG, BMP #### [facility] [address] [place] [address] USACreatinine [Mass/Vol]1.54 mg/dLSignificant change down 0.70-1.30The [facility] Physician GroupComment on above:Performed By: #### MG, BMP #### [facility] [address] [place] [address] USACreatinine Clr Calc Npbsqknx44.49NormBaptist Health Bethes[facility] Hospital West Physician GroupComment on above:Performed By: #### MG, BMP #### [facility] [address] [place] [address] USAGFR/1.73 sq M.predicted MDRD (S/P/Bld) [Vol rate/Area] mL/min/{1.73_m2}NormalThe [facility] Physician GroupComment on above:Performed By: #### MG, BMP #### [facility] [address] [place] [address] USAGlobulin (S) [Mass/Vol]2.5 g/dLNoUNC Hospitals Hills[facility] Campus Physician GroupComment on above:Performed By: #### MG, BMP #### [place] [address] USAGlucose [Mass/Vol]97 mg/jUOjqmzu79-800Wrv [facility] Physician GroupComment on above:Result Comment: Random Glucose Reference Range is dependent on time and content of last meal. Glucose of more than 200 mg/dL in a nonstressed, ambulatory subject supports the diagnosis of Diabetes Mellitus. ADA recommended reference rangePerformed By: #### MG, BMP #### [place] [address] USAPotassium [Moles/Vol]3.5 mmol/LNormal3.5-5.1The [facility] Physician GroupComment on above:Performed By: #### MG, BMP #### [place] [address] USAProtein [Mass/Vol]6.2 g/dLLow6.4-8.9The [facility] Physician GroupComment on above:Performed By: #### MG, BMP #### [place] [address] USASodium [Moles/Vol]138 mmol/NGlyrwq958-538Gql [facility] Physician GroupComment on above:Performed By: #### MG, BMP #### [place] [address] USAUrea nitrogen [Mass/Vol]19 mg/dLNormal7-25The [facility] Physician GroupComment on above:Performed By: #### MG, BMP #### [place] [address] USAErythrocyte Sedimentation Rateon 82-01-9294WKL (Bld) [Velocity]2 mm/hNormal0-14The [facility] Physician GroupComment on above:Result Comment: PERFORMED BY: [place] [address] PATHOLOGIST REHABILITATION AIDE VARUN ARGUETA M.D.Performed By: #### MG, BMP #### [place] [address] USAHIV 1/O/2 Antigen/Antibodyon 16-61-5282PHD Screen 4th GenerationNon-ReactiveNormalNon ReactiveThe [facility] Physician GroupComment on above:Result Comment: HIV-1/HIV-2 antibodies and HIV-1 p24 antigen were NOT detected. There is no laboratory evidence of HIV infection. HIV Negative Performed at: [facility] [id number] Hydro Technician: Laurent [place] PhD, Phone: [phone] PERFORMED BY: [place] [address] PATHOLOGIST REHABILITATION AIDE VARUN ARGUETA M.D.Performed By: #### MG, BMP #### [place] [address] USAHepatitis Acute Panelon 55-38-6759UUzCt ScreenNegative NormalNegativeThe [facility] Physician GroupComment on above:Performed By: #### MG, BMP #### [place] [address] USAHepatitis A Antibody IgMNegativeNormalNegativeThe [facility] Physician GroupComment on above:Result Comment: A negative anti-HAV IgM result suggests no recent or current HAV infection.Performed By: #### MG, BMP #### [place] [address] USAHepatitis B Core Antibody IgMNegativeNormalNegativeThe [facility] Physician GroupComment on above:Performed By: #### MG, BMP #### [place] [address] USAHepatitis C Virus AntibodyNon-ReactiveNormalNon Reactive The [facility] Physician GroupComment on above:Performed By: #### MG, BMP #### [place] [address] USAInterpretation Hepatitis CCommentNormal.The [facility] Physician GroupComment on above:Result Comment: Not infected with HCV unless early or acute infection is suspected (which may be delayed in an immunocompromised individual), or other evidence exists to indicate HCV infection. Performed at: [address] [id number] Hydro Technician: Laurent Walker PhD, Phone: [phone] PERFORMED BY: [place] [address] PATHOLOGIST REHABILITATION AIDE VARUN ARGUETA M.D.Performed By: #### MG, BMP #### [place] [address] USARenin Activityon 72-73-8708Cfbht Hvrarmrp54.530Normal 0.167-5.380The [facility] Physician [facility] MadisonComment on above:Result Comment: This test was developed and its performance characteristics determined by [facility]. It has not been cleared or approved by the Food and Drug Administration. Performed at: [address] [id number] Hydro Technician: Ata Fletcher MD, Phone: [phone] PERFORMED BY: [place] [address] PATHOLOGIST REHABILITATION AIDE VARUN ARGUETA M.D.Performed By: #### MG, BMP #### [place] [address] USABasic Metabolic Panelon 99-89-3873Eylyn gap [Moles/Vol]9.6 mmol/LNormal6.0-15.0The [facility] Physician GroupComment on above:Performed By: #### BMP, PHOS #### [place] [address] USACalcium [Mass/Vol]9.3 mg/dLNormal8.6-10.3The [facility] Physician GroupComment on above:Performed By: #### BMP, PHOS #### [place] [address] USAChloride [Moles/Vol]102 mmol/CNkdtgr68-381Ufw [facility] Physician GroupComment on above:Performed By: #### BMP, PHOS #### [place] [address] USACO2 [Moles/Vol]27.3 mmol/ZUhjphh35.0-31.0The [facility] Physician GroupComment on above:Performed By: #### BMP, PHOS #### [place] [address] USACreatinine [Mass/Vol]3.60 mg/dLSignificant change down 0.70-1.30The [facility] Physician GroupComment on above:Performed By: #### BMP, PHOS #### [place] [address] USACreatinine Clr Calc Ebrgqnxb42.42NormalThe [facility] Physician GroupComment on above:Result Comment: PERFORMED BY: [place] [address] PATHOLOGIST REHABILITATION AIDE VARUN ARGUETA M.D.Performed By: #### BMP, PHOS #### [place] [address] USAGFR/1.73 sq M.predicted MDRD (S/P/Bld) [Vol rate/Area] 22.745 mL/min/{1.73_m2}NormalThe [facility] Physician GroupComment on above: Performed By: #### BMP, PHOS #### [place] [address] USAGlucose [Mass/Vol]143 mg/gSFnop70-121Fld [facility] Physician GroupComment on above:Result Comment: Random Glucose Reference Range is dependent on time and content of last meal. Glucose of more than 200 mg/dL in a nonstressed, ambulatory subject supports the diagnosis of Diabetes Mellitus. ADA recommended reference rangePerformed By: #### BMP, PHOS #### [facility] [address] [place] [address] USAPotassium [Moles/Vol]3.9 mmol/LNormal3.5-5.1The [facility] Physician GroupComment on above:Performed By: #### BMP, PHOS #### [facility] [address] [place] [address] USASodium [Moles/Vol]135 mmol/DEqk072-087Xmk [facility] Physician GroupComment on above:Performed By: #### BMP, PHOS #### [facility] [address] [place] [address] USAUrea nitrogen [Mass/Vol]24 mg/dLNormal7-25The [facility] Physician GroupComment on above:Performed By: #### BMP, PHOS #### [place] [address] USAAnion gap [Moles/Vol]15.7 mmol/LHigh6.0-15.0The [facility] Physician GroupComment on above:Performed By: #### MG, BMP #### [facility] [address] [place] [address] USACalcium [Mass/Vol]8.5 mg/dLLow8.6-10.3The [facility] Physician GroupComment on above:Performed By: #### MG, BMP #### [place] [address] USAChloride [Moles/Vol]100 mmol/BTurtug57-180Fvk [facility] Physician GroupComment on above:Performed By: #### MG, BMP #### [facility] [address] [place] [address] USACO2 [Moles/Vol]22.9 mmol/TBgldrt34.0-31.0The [facility] Physician GroupComment on above:Performed By: #### MG, BMP #### [facility] [address] [place] [address] USACreatinine [Mass/Vol]5.07 mg/dLSignificant change down 0.70-1.30The [facility] Physician GroupComment on above:Performed By: #### MG, BMP #### [place] [address] USACreatinine Clr Calc Iuobtmxv20.70NormalThe [facility] Physician GroupComment on above:Result Comment: PERFORMED BY: [place] [address] PATHOLOGIST REHABILITATION AIDE VARUN ARGUETA M.D.Performed By: #### MG, BMP #### [place] [address] USAGFR/1.73 sq M.predicted MDRD (S/P/Bld) [Vol rate/Area] 15.082 mL/min/{1.73_m2}NormalThe [facility] Physician GroupComment on above: Performed By: #### MG, BMP #### [place] [address] USAGlucose [Mass/Vol]103 mg/zMCruu60-949Iqm [facility] Physician GroupComment on above:Result Comment: Random Glucose Reference Range is dependent on time and content of last meal. Glucose of more than 200 mg/dL in a nonstressed, ambulatory subject supports the diagnosis of Diabetes Mellitus. ADA recommended reference rangePerformed By: #### MG, BMP #### [place] [address] USAPotassium [Moles/Vol]3.6 mmol/LNormal3.5-5.1The [facility] Physician GroupComment on above:Performed By: #### MG, BMP #### [place] [address] USASodium [Moles/Vol]135 mmol/MGfh015-480Wxu [facility] Physician GroupComment on above:Performed By: #### MG, BMP #### [place] [address] USAUrea nitrogen [Mass/Vol]27 mg/dLHigh7-25The [facility] Physician GroupComment on above:Performed By: #### MG, BMP #### [place] [address] USAAnion gap [Moles/Vol]14.5 mmol/LNormal6.0-15.0The [facility] Physician GroupComment on above:Performed By: #### MG, BMP #### [facility] [address] [place] [address] USACalcium [Mass/Vol]8.0 mg/dLLow8.6-10.3The [facility] Physician GroupComment on above:Performed By: #### MG, BMP #### [facility] [address] [place] [id number] USAChloride [Moles/Vol]100 mmol/ZFrshnv26-839Wne [facility] Physician GroupComment on above:Performed By: #### MG, BMP #### [facility] [address] [place] [address] USACO2 [Moles/Vol]21.9 mmol/XVptokj78.0-31.0The [facility] Physician GroupComment on above:Performed By: #### MG, BMP #### [facility] [address] [place] [address] USACreatinine [Mass/Vol]5.88 mg/dLHigh0.70-1.30The [facility] Physician GroupComment on above:Performed By: #### MG, BMP #### [facility] [address] [place] [address] USAGFR/1.73 sq M.predicted MDRD (S/P/Bld) [Vol rate/Area] 12.624 mL/min/{1.73_m2}NormalThe [facility] Physician GroupComment on above: Performed By: #### MG, BMP #### [place] [id number] USAGlucose [Mass/Vol]117 mg/zDTfdu40-026Fxi [facility] Physician GroupComment on above:Result Comment: Random Glucose Reference Range is dependent on time and content of last meal. Glucose of more than 200 mg/dL in a nonstressed, ambulatory subject supports the diagnosis of Diabetes Mellitus. ADA recommended reference rangePerformed By: #### MG, BMP #### [facility] [address] [place] [address] USAPotassium [Moles/Vol]3.4 mmol/LLow3.5-5.1The [facility] Physician GroupComment on above:Performed By: #### MG, BMP #### [facility] [address] [place] [address] USASodium [Moles/Vol]133 mmol/IUgg835-017Qti [facility] Physician GroupComment on above:Performed By: #### MG, BMP #### [facility] [address] [place] [address] USAUrea nitrogen [Mass/Vol]27 mg/dLHigh7-25The [facility] Physician GroupComment on above:Performed By: #### MG, BMP #### [facility] [address] [place] [address] USACatecholamines, Ur Free, 24Hron 21-34-4631Xtuzytoc, 24 Hr Byeen653Szuzya3-958Ehj [facility] Physician GroupComment on above:Order Comment: TOTAL VOLUME = 3625mL List any foods/meds the pt has taken (see Test/Proc Notes):: waterResult Comment: Performed at: [address] [id number] Hydro Technician: Ata Fletcher MD, Phone: [phone] PERFORMED BY: [place] [address] PATHOLOGIST REHABILITATION AIDE VARUN ARGUETA M.D.Performed By: #### CATEC FR24 #### [facility] ,Dopamine, Zlrtr86InpkkaWqrkrqeruIdj [facility] Physician GroupComment on above: Order Comment: TOTAL VOLUME = 3625mL List any foods/meds the pt has taken (see Test/Proc Notes):: waterResult Comment: This test was developed and its performance characteristics determined by [facility]. It has not been cleared or approved by the Food and Drug Administration.Performed By: #### CATEC FR24 #### [facility] ,Epinephrine, Urine<3NormalUndefinedThe [facility] Physician GroupComment on above:Order Comment: TOTAL VOLUME = 3625mL List any foods/meds the pt has taken (see Test/Proc Notes):: waterResult Comment: This test was developed and its performance characteristics determined by [facility]. It has not been cleared or approved by the Food and Drug Administration.Performed By: #### CATEC FR24 #### [facility] ,Epinephrine, Urine, 24Hr<25Ujzhyb5-15Teu [facility] Physician GroupComment on above:Order Comment: TOTAL VOLUME = 3625mL List any foods/meds the pt has taken (see Test/Proc Notes):: waterPerformed By: #### CATEC FR24 #### [facility] ,Norepinephrine, 24 Hr Duxlf31Odvxbi0-379Rqt [facility] Physician GroupComment on above:Order Comment: TOTAL VOLUME = 3625mL List any foods/meds the pt has taken (see Test/Proc Notes):: waterPerformed By: #### CATEC FR24 #### [facility] ,Norepinephrine, Aiddp41MtsdauYbiulkhvaZjd [facility] Physician GroupComment on above:Order Comment: TOTAL VOLUME = 3625mL List any foods/meds the pt has taken (see Test/Proc Notes):: waterResult Comment: This test was developed and its performance characteristics determined by [facility]. It has not been cleared or approved by the Food and Drug Administration.Performed By: #### CATEC FR24 #### [facility] ,Complete Blood Count Auto Diffon 57-91-9827Ykponwlye (Bld) [#/Vol]0.2 10*3/uL Normal0.0-0.2The [facility] Physician GroupComment on above:Result Comment: PERFORMED BY: [place] [address] PATHOLOGIST REHABILITATION AIDE VARUN ARGUETA M.D.Performed By: #### MG, BMP #### [facility] [address] [place] [address] USABasophils/100 WBC (Bld)1.4 %Normal.The [facility] Physician GroupComment on above:Performed By: #### MG, BMP #### [facility] [address] [place] [address] USAEosinophils (Bld) [#/Vol]0.2 10*3/uLNormal0.0-0.45The [facility] Physician GroupComment on above:Performed By: #### MG, BMP #### [place] [address] USAEosinophils/100 WBC (Bld)1.4 %Normal.The [facility] Physician GroupComment on above:Performed By: #### MG, BMP #### [facility] [address] [place] [address] USAErythrocyte distribution width (RBC) [Ratio]14.6 %Normal 12.0-14.8The [facility] Physician GroupComment on above:Performed By: #### MG, BMP #### [place] [address] USAHematocrit (Bld) [Volume fraction]52.3 %High38.8-50.0The [facility] Physician GroupComment on above:Performed By: #### MG, BMP #### [place] [address] USAHemoglobin (Bld) [Mass/Vol]18.0 g/vTCxzs40.0-17.0The [facility] Physician GroupComment on above:Performed By: #### MG, BMP #### [place] [address] USALymphocytes (Bld) [#/Vol]2.9 10*3/uLNormal1.00-4.8The [facility] Physician GroupComment on above:Performed By: #### MG, BMP #### [place] [address] USALymphocytes/100 WBC (Bld)20.4 %Normal.The [facility] Physician GroupComment on above:Performed By: #### MG, BMP #### [place] [address] USAMCH (RBC) [Entitic mass]32.2 gwNafhal53.5-35.2The [facility] Physician GroupComment on above:Performed By: #### MG, BMP #### [place] [address] USAMCV (RBC) [Entitic vol]93.4 xNJckdbg77.5-101The [facility] Physician GroupComment on above:Performed By: #### MG, BMP #### [place] [address] USAMean Corpuscular HGB Conc34.5 g/oFGkxdwg47.5-35.6The [facility] Physician GroupComment on above:Performed By: #### MG, BMP #### [place] [address] USAMonocytes (Bld) [#/Vol]1.6 10*3/uLHigh0.0-0.8The [facility] Physician GroupComment on above:Performed By: #### MG, BMP #### [place] [address] USAMonocytes/100 WBC (Bld)11.2 %Normal.The [facility] Physician GroupComment on above:Performed By: #### MG, BMP #### [place] [address] USANeutrophils (Bld) [#/Vol]9.3 10*3/uLHigh1.8-7.7The [facility] Physician GroupComment on above:Performed By: #### MG, BMP #### [place] [address] USANeutrophils/100 WBC (Bld)65.6 %Normal.The [facility] Physician GroupComment on above:Performed By: #### MG, BMP #### [place] [address] USANRBC%0.2 /100{WBC}Normal0-0.5The [facility] Comment on above:Performed By: #### MG, BMP #### [place] [address] USAPlatelet mean volume (Bld) [Entitic vol]9.8 fLNormal 6.6-10.1The [facility] Physician GroupComment on above:Performed By: #### MG, BMP #### [place] [address] USAPlatelets (Bld) [#/Vol]159 10*3/xYNvmwfd185-868Ktc [facility] Physician GroupComment on above:Performed By: #### MG, BMP #### [place] [address] USARBC (Bld) [#/Vol]5.60 10*6/uLNormal3.90-5.60The [facility] Physician GroupComment on above:Performed By: #### MG, BMP #### [place] [address] USAWBC (Bld) [#/Vol]14.3 10*3/uLHigh4.1-10.5The [facility] Physician GroupComment on above:Performed By: #### MG, BMP #### [place] [address] USAWhite Blood Count14.3 [CFU]/mLHigh4.1-10.5The [facility] Physician GroupComment on above:Performed By: #### MG, BMP #### [place] [address] USADipstick and Microscopicon 09-66-5650Bpobrnnhxu (U)Clear NormalClearThe [facility] Physician GroupComment on above:Order Comment: Name Collection Type:: Clean-Voided MidstreamPerformed By: #### MG, BMP #### [place] [address] USABacteria,UrineRareNormalNone SeenThe [facility] Physician GroupComment on above:Order Comment: Name Collection Type:: Clean-Voided MidstreamPerformed By: #### MG, BMP #### [place] [address] USABilirubin,UrineNegativeNormalNegativeThe [facility] Physician GroupComment on above:Order Comment: Name Collection Type:: Clean- Voided MidstreamPerformed By: #### MG, BMP #### [place] [address] USAColor (U)Light-YellowNormalYellowThe [facility] Physician GroupComment on above:Order Comment: Name Collection Type:: Clean-Voided MidstreamPerformed By: #### MG, BMP #### [place] [address] USAGlucose Ql (U)300 mg/dLNormalNormalThe [facility] Physician GroupComment on above:Order Comment: Name Collection Type:: Clean-Voided MidstreamPerformed By: #### MG, BMP #### [place] [address] USAHyaline Casts,UrineNoneNormal0-8The [facility] Physician GroupComment on above:Order Comment: Name Collection Type:: Clean-Voided MidstreamPerformed By: #### MG, BMP #### [place] [address] USAKetones Ql (U)NegativeNormalNegativeThe [facility] Physician GroupComment on above:Order Comment: Name Collection Type:: Clean- Voided MidstreamPerformed By: #### MG, BMP #### [place] [address] USALeukocyte esterase Test strip Ql (U)NegativeNormalNegative The [facility] Physician GroupComment on above:Order Comment: Name Collection Type:: Clean-Voided MidstreamPerformed By: #### MG, BMP #### [place] [address] USAMucus,UrineRareNormalThe [facility] Physician GroupComment on above:Order Comment: Name Collection Type:: Clean-Voided MidstreamResult Comment: PERFORMED BY: [place] [address] PATHOLOGIST REHABILITATION AIDE VARUN ARGUETA M.D.Performed By: #### MG, BMP #### [place] [address] USANitrite,UrineNegativeNormalNegativeThe [facility] Physician GroupComment on above:Order Comment: Name Collection Type:: Clean-Voided MidstreamPerformed By: #### MG, BMP #### [place] [address] USAOccult Blood,Urine2+NormalNegativeThe [facility] Physician GroupComment on above:Order Comment: Name Collection Type:: Clean-Voided MidstreamResult Comment: PERFORMED BY: [place] [address] PATHOLOGIST REHABILITATION AIDE VARUN ARGUETA M.D.Performed By: #### MG, BMP #### [place] [address] USApH (U)5.5 [pH]Normal5.0-9.0The [facility] Comment on above:Order Comment: Name Collection Type:: Clean-Voided Midstream Performed By: #### MG, BMP #### [place] [address] USAProtein,UrineTraceNormalNegativeThe [facility] Physician GroupComment on above:Order Comment: Name Collection Type:: Clean-Voided MidstreamPerformed By: #### MG, BMP #### [place] [address] USARBC,Quuhl3-5Knalyf9-2Mhh [facility] Physician GroupComment on above:Order Comment: Name Collection Type:: Clean-Voided MidstreamPerformed By: #### MG, BMP #### [place] [address] USASpecificy Eola,Urine1.774Yjlctf2.001-1.030The [facility] Physician GroupComment on above:Order Comment: Name Collection Type:: Clean- Voided MidstreamPerformed By: #### MG, BMP #### [place] [address] USASquamous Epithelial Cell,Mzbqd1-7Upritb5-5Edk [facility] Physician GroupComment on above:Order Comment: Name Collection Type:: Clean- Voided MidstreamPerformed By: #### MG, BMP #### [place] [address] USAUrobilinogen,UrineNormalNormalNormalThe [facility] Physician GroupComment on above:Order Comment: Name Collection Type:: Clean- Voided MidstreamPerformed By: #### MG, BMP #### [place] [address] USAWBC,Zkpuy4-1Zyrkcg9-6Xoa [facility] Physician GroupComment on above:Order Comment: Name Collection Type:: Clean-Voided MidstreamPerformed By: #### MG, BMP #### [place] [address] USADrug Screen,Urineon 14-21-0273Rhpohkgdgdi Screen,Urine NegativeNormalNegativeThe [facility] Physician GroupComment on above:Performed By: #### MG, BMP #### [place] [address] USABarbiturate Screen,UrineNegativeNormalNegativeThe [facility] Physician GroupComment on above:Performed By: #### MG, BMP #### [place] [address] USABenzodiazepines Screen,UrineNegativeNormalNegativeThe [facility] Physician GroupComment on above:Performed By: #### MG, BMP #### [place] [address] USACannabinoid Screen,UrinePositiveNormalNegativeNorthwest Florida Community Hospital Physician GroupComment on above:Result Comment: These are unconfirmed results and should not be used for legal purposes. Drug Cut-Off Concentration: AMPH 1000 ng/mL JOSE LUIS 200 ng/mL CANDIDO 200 ng/mL COCM 300 ng/mL OP 300 ng/mL PCP 25 ng/mL THC 20 ng/mL PERFORMED BY: [place] [address] PATHOLOGIST REHABILITATION AIDE VARUN ARGUETA M.D.Performed By: #### MG, BMP #### [place] [address] USACocaine Screen,UrineNegativeNormalNegativeNorthwest [facility] Physician GroupComment on above:Performed By: #### MG, BMP #### [place] [address] USAOpiate Screen,UrineNegativeNormalNegativeThe [facility] Physician GroupComment on above:Performed By: #### MG, BMP #### [place] [address] USAPhencyclidine Screen,UrineNegativeNormalNegativeThe [facility] Physician GroupComment on above:Performed By: #### MG, BMP #### [place] [address] USAMagnesiumon 73-50-4278Erdswkwnp [Mass/Vol]2.3 mg/dLNormal 1.9-2.7The [facility] Physician GroupComment on above:Result Comment: PERFORMED BY: [place] [address] PATHOLOGIST REHABILITATION AIDE VARUN ARGUETA M.D.Performed By: #### MG, BMP #### [place] [address] USAPhosphoruson 72-49-4315Nijuferlp [Mass/Vol]2.1 mg/dLLow 2.5-4.5The [facility] Physician GroupComment on above:Result Comment: PERFORMED BY: [place] [address] PATHOLOGIST REHABILITATION AIDE VARUN ARGUETA M.D.Performed By: #### BMP, PHOS #### [place] [address] USAProtein Creat Ratio Ur Randomon 74-25-5195Qjqnsnnvpc, Urine (Random)87.00 mg/dLNormalThe [facility] Physician [facility] MadisonComment on above: Result Comment: No reference range establishedPerformed By: #### MG, BMP #### [place] [address] USAProtein (U) [Mass/Vol]39 mg/dLHigh0-9The [facility] Physician GroupComment on above:Performed By: #### MG, BMP #### [place] [address] USAUrine Protein/Creatinine Wssuz018 mg/g{Cre}High0-200The [facility] Physician GroupComment on above:Result Comment: PERFORMED BY: [place] [address] PATHOLOGIST REHABILITATION AIDE VARUN ARGUETA M.D.Performed By: #### MG, BMP #### [facility] [address] [place] [address] USAUS renal BIon 21-57-2836XC renal [facility]UN[facility] [place] [address] [place] [address] Ultrasound Report Signed Patient: Tu Casiano I MR#: [id number] : 1995 Acct:[id number] Age/Sex: 29 / M ADM Date: 10/23/24 Loc: Room: [address] [place] [address] Type: DIS IN Attending Dr: Poli Florentino MD Ordering Provider: Caitlin Gambino APRN Date of Service: 10/23/24 US/US renal BI: r/o obstruction Copies to: MD Caitlin Becker, ESCALATOR SERVICE [employer]CH[employer]IC BILATERAL RENAL AND BLADDER ULTRASOUND CLINICAL HISTORY: [...] Savage M.D. 10/23/2024 9:51 AM Dictation Location: [place] [address] Tech: Alka Denita Transcribed By: ADELITA 10/23/24 0951 Dictated By: Zach Savage MD 10/23/24 0949 Signed By: 10/23/24 0951NoUNC [facility] Physician GroupUric Acidon 31-30-0291Mikyn [Mass/Vol]11.3 mg/dLHigh4.4-7.6The [facility] MadisonComment on above: Result Comment: PERFORMED BY: [place] [address] PATHOLOGIST REHABILITATION AIDE VARUN ARGUETA M.D.Performed By: #### MG, BMP #### [place] [address] [address] USABasophils/100 WBC Manual cnt (Bld)Ordered By: Nicci Severino on 78-62-4587Gpststdaf/100 WBC (Bld)0.0 %Low0.2-2.0[facility] HospitalEosinophils/100 WBC Manual cnt (Bld)Ordered By: Nicci Severino on 10-22-2024 Eosinophils/100 WBC (Bld)1.0 %0.9-7.0[facility] Erythrocyte distribution width Auto (RBC) [Ratio]Ordered By: Allison Leo on 02-55-2256Xdhglqggbqg distribution width (RBC) [Ratio]13.4 %11.0-15.0 [facility] HospitalEstimated glomerular filtration rate (GFR) non- AmericanOrdered By: Nicci Severino on 29-52-9673XZF/1.73 sq M.predicted among non-blacks MDRD (S/P/Bld) [Vol rate/Area]8 mL/min/{1.73_m2}Low>=60 mL/min/1.73m 2FUniversity Hospitals Elyria Medical CenterGlobulin Calc (S) [Mass/Vol]Ordered By: Nicci Severino on 99-94-6112Lhzezzlj (S) [Mass/Vol]4.1 g/dLPike Community HospitalHematocrit Auto (Bld) [Volume fraction]Ordered By: Allison Leo on 86-28-2029Yjrinlalyp (Bld) [Volume fraction]55.3 %High42.0-54.0[facility] HospitalHemoglobin [Mass/volume] in BloodOrdered By: Allison Leo on 21-47-4186Nmqcmyjtro (Bld) [Mass/Vol]19.9 g/yTWyfe59.0-18.0 [facility] HospitalLaboratory - Chemistry and Chemistry - challengeOrdered By: Nicci Severino on 72-21-3489Udjednc [Mass/Vol]3.6 g/dL3.4-5.0 [facility] HospitalALP [Catalytic activity/Vol]112 U/L46-116 [facility] HospitalALT [Catalytic activity/Vol]63 U/L16-63 [facility] HospitalAST [Catalytic activity/Vol]56 U/MFhaa82-12 [facility] HospitalBilirubin [Mass/Vol]0.7 mg/dL0.2-1.0[facility] HospitalCalcium [Mass/Vol]9.4 mg/dL8.5-10.1FUniversity Hospitals Elyria Medical CenterChloride [Moles/Vol]91 mmol/OOsc90-081EadwrdcdxPike Community HospitalCK [Catalytic activity/Vol]89 U/W65-519WdvllayyfPike Community Hospital CK.MB [Mass/Vol]1.84 ng/mL<=3.60[facility] HospitalCO2 [Moles/Vol] 24.3 mmol/L21.0-32.0[facility] HospitalCreatinine [Mass/Vol]7.73 mg/dLCritically high0.70-1.30[facility] HospitalComment on above: RESULTS CALLED TO ER Joaquin Jack, DO @BY Maurice Marie, MLTat 2116GFR/1.73 sq M.predicted MDRD (S/P/Bld) [Vol rate/Area]10 mL/min/{1.73_m2}Low>=60 mL/min/1.73m 2FUniversity Hospitals Elyria Medical CenterGlucose [Mass/Vol]138 mg/dLHigh 74-106[facility] HospitalLactate [Moles/Vol]1.7 mmol/L0.4-2.0 [facility] HospitalPotassium [Moles/Vol]3.3 mmol/LLow3.5-5.1 [facility] HospitalProtein [Mass/Vol]7.7 g/dL6.4-8.2FKing's Daughters Medical Center Ohioodium [Moles/Vol]131 mmol/PGnn066-728ZvylbfokvPike Community HospitalUrea nitrogen [Mass/Vol]31.0 mg/dLHigh7.0-18.0[facility] HospitalUrea nitrogen/Creatinine [Mass ratio]4.0 mg/mgPike Community HospitalLaboratory - Hematology and Cell countsOrdered By: Nicci Severino on 20-63-0647Htpnweeqwuq/100 WBC (Bld)19.0 %Low20.5-60.0[facility] HospitalMonocytes/100 WBC (Bld)14.0 %High1.7-12.0[facility] Leukocytes [#/volume] corrected for nucleated erythrocytes in Blood by Automated counOrdered By: Allison Leo on 35-54-7249IUP corrected for nucl RBC Auto (Bld) [#/Vol]18.8 10 3/uLHigh4.0-11.0[facility] Hospital [facility] ColumbusH Auto (RBC) [Entitic mass]Ordered By: Allison Leo on 16-34-4949GGY (RBC) [Entitic mass]32.4 pg25.9-34.0[facility] HospitalMCHC Auto (RBC) [Mass/Vol]Ordered By: Allison Leo on 41-23-5922DDYD (RBC) [Mass/Vol]36.0 g/hSKfpj55.9-35.2FUniversity Hospitals Elyria Medical CenterMCV Auto (RBC) [Entitic vol] Ordered By: Allison Leo on 49-11-6499KUH (RBC) [Entitic vol]89.9 fL 80.0-94.0[facility] HospitalNo Panel InformationOrdered By: Nicci Severino on 47-09-5183Evhhrefy Basophils (Manual)0.00 10 3/uL0.00-0.10[facility] HospitalEosinophils # (Manual)0.18 10 3/uL0.00-0.70[facility] HospitalLymphocytes # (Manual)3.57 10 3/uL1.20-3.80[facility] HospitalMonocytes # (Manual)2.63 10 3/uLHigh0.30-0.80[facility] Centeregmented Neutrophils # (Manual)12.40 10 3/uLHigh1.4-6.5 [facility] HospitalTroponin I High Wncrtvrurdm47.0 pg/mL4.0-76.1 [facility] HospitalComment on above:CUT-OFF POINTS HAVE BEEN ESTABLISHED [...] 10-22-2024 Platelet mean volume (Bld) [Entitic vol]11.4 fL9.5-13.5FUniversity Hospitals Elyria Medical CenterPlatelets Auto (Bld) [#/Vol]Ordered By: Allison Leo on 58-64-4866Svuufotlr (Bld) [#/Vol]211 10 3/uK192-582PirtyafjuPike Community HospitalRBC Auto (Bld) [#/Vol]Ordered By: Allison Leo on 27-19-3100ZFK (Bld) [#/Vol]6.15 10 6/uLHigh4.70-6.10[facility] Centeregmented neutrophils/100 WBC Manual cnt (Bld)Ordered By: Nicci Severino on 10-22-2024 Segmented neutrophils/100 WBC (Bld)66.0 %43.0-75.0[facility] Medical Centererum or plasma albumin/globulin mass ratioOrdered By: Nicci Severino on 27-98-9403Psihvay/Globulin [Mass ratio]0.9 {ratio}[facility] Centererum or plasma anion gap determinationOrdered By: Nicci Severino on 10-22-2024 Anion gap [Moles/Vol]19.0 mmol/LFUniversity Hospitals Elyria Medical CenterTelephone Encounteron 15-28-0053Izxkrdjgjrgtu Authentication Interface Message TextPatient sent a second request for oxycodone in MyChart 07/25/2024.NormalThe [facility]wide [facility] Hospital SystemAnesthesia Postprocedure Evaluationon 78-39-4576Buczdkwoztjhp Authentication Interface Message TextAnesthesia Postoperative Assessment: Vital [...] ANESTHESIA NOTABLE EVENTS: No notable events documented.NormalThe Nationwide Children's Hospital SystemAnesthesia Preprocedure Evaluationon 27-70-8091Ngqeibiiqspwm Authentication Interface Message TextASA: 2 No history [...] were discussed with the patient and/or legal goodwill representative. The risks, benefits and alternatives were reviewed. Questions regarding anesthesia were answered. Patient and/or legal goodwill representative knows such anesthetics and procedures may be performed by Resident physicians, Certified Anesthesiologist Assistants, or Certified Nurse Anesthetists under the supervision of a physician. The patient /or the patient's legal goodwill representative agree with the plan for anesthesia. MHPATFORMNormWayne HealthCare Main Campus SystemAnesthesia Transfer Of Careon 07-23-2024 Securities Compliance Examiner Authentication Interface Message TextPatient taken to PACU. [...] Cely Strauss MD Anesthesiologist: Salinas Saldaña MD DEVELOPMENT ADVISOR: Jessica Aguilar APRN-DEVELOPMENT ADVISOR Anesthesia Student: Carolina Tamez REMOVAL, HARDWARE, HAND [...] of understanding of the report was received. JEANNA CarranzaECU Health Roan[facility]-Chowan Hospital SystemBrief Operative Noteon 58-64-5122Bsilpqjwichcd Authentication Interface Message TextBrief Operative Note BV OR 1 Tu Casiano 28 year old male Surgical Contact Serial Number: [id number] Preoperative Diagnosis: Pre-op Diagnosis * Traumatic amputation of finger, initial encounter [S68.119A] * Hand laceration involving tendon, right, subsequent encounter [S61.411D, S66.921D] Postoperative Diagnosis: * Traumatic amputation of finger, initial encounter [S68.119A] * Hand laceration involving tendon, right, subsequent encounter [S61.411D, S66.921D] Procedures: Right small finger hardware removal Surgeon(s): Surgeon(s): Cely Strauss MD Staff: Scrub: Maryam Mao Slice Plug Cutter Operator Helper Nurse: Lidya Williamson RN Strategic Debriefing Officer: Emelina Diego DO; Cristopher Kaur DMD, MD Anesthesia: Consult Anesthesiologist: Salinas Saldaña MD DEVELOPMENT ADVISOR: Jessica Aguilar APRN-CRNA Anesthesia Student: Carolina Tamez [...] Signed by Emelina Diego DO 07/23/2024 2:21 [facility] OP Noteon 18-07-0465Qdfytvfjcrwzh Authentication Interface Message TextOPERATIVE NOTE Plastic Surgery Name: Tu Casiano CSN: [id number] Surgical Age: [age] year old Date of [...] Care Complete Surgeon(s): Primary: Cely Strauss MD Sign Painter Surgeon: Scrub: Maryam Mao Slice Plug Cutter Operator Helper Nurse: Lidya Williamson RN Strategic Debriefing Officer: Emelina Diego DO; Cristopher Kaur DMD, MD [...] critical parts of the procedure. Emelina Diego [facility] SystemPAT Call Historyon 07-22-2024 Securities Compliance Examiner Authentication Interface Message TextTelephone History Tu Casiano, [id number] 07/22/2024 Patient was identified by name and [...] procedure with Dr. Strauss on 07/23/24 at [facility] ED Visit (05/30/2024) Partial Note- Hand [...] 5th digit. Patient was transferred here from [facility] for surgical consultation. A/P 28-year-old male with a past medical history listed above who presents to the emergency department as a transfer from [facility] for hand surgery consult. On initial presentation [...] and pain control prior to evaluation at [facility]. Hand surgery was consulted, evaluated [...] chills, inc (more content not included)... NormalThe [place] SystemTelephone Encounteron 05-05-7343Buvtuihkxgria Authentication Interface Message TextPt called to check status of refill request.NormalThe Growing StarsroHealth SystemXR FINGERS RIGHT 3 VIEWSon 85-58-5357QN FINGERS RIGHT 3 VIEWSEXAMINATION: XR FINGERS RIGHT [...] signs of loosening. Right finger MACRO: NoneNormalThe Growing StarsroHealth SystemXR Finger - right Viewson 47-40-9287DKWKZYXIZOV: XR FINGERS RIGHT 3 VIEWSPRO/RT/Right Fifth Digit [...] right ViewsOrdered By: Daniel Rosado on 07-11-2024 [place] Work Phone: Progress Noteson 34-31-0463Apnelsomailgr Authentication Interface Message TextPost Operative Visit Date [...] agreement. Charlene Nick PA-C 07/09/24 2:10 PMNormalThe [place] SystemTranscription Authentication Interface Message TextOCCUPATIONAL THERAPY HAND TREATMENT Patient left without being seen. No skilled OT provided. Federico Galeana OTR/L, Eliana [place] SystemXR Finger - right Viewson 24-35-3626Ffrqapxho Study observation (narrative)NeighborlandProgress Noteson 95-25-5009Heullapywiplq Authentication Interface Message TextPost Operative Visit Date [...] patient. The patient stated understanding and agreement. Charleen Nick PA-C 06/23/24 12:25 [facility] Interface Message PurpleCowOCCUPATIONAL THERAPY HAND TREATMENT Visit #: 3 Referred to Occupational Therapy for evaluation and treatment. Referring Provider: Charlene Nick PA-C DIAGNOSIS: Right SF open fracture dislocation and extensor tendon laceration and R MF distal phalanx amputation. [facility] 1. R MF revision amputation at the level of distal portion of the middle phalanx. 2. Fixation of the extensor tendon at 2 different places, in central slip and also zone 5. 3. Open reduction of the PIP dislocation fracture. DOI/Mechanism: 05/30/24 - table saw injury Precautions: Small finger PIP is pinned. Extensor tendon precautions. NWB Payor: [employer] - HMO/PPO/POS / Plan: [facility] P[facility]/CLASSIC/PLUS / Product Type: PPO Tu Casiano [...] updated medication list. 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 Identification [...] regarding orthoses. Stat (more content not included)...NormalThe [place] SystemProgress Noteson 97-40-2288Cvnvadgpmgqhr Authentication Interface Message TextPost Operative Visit Date of Surgery: 06/09/2024 Surgery(s) performed: 1. Right middle finger revision amputation at the level of distal portion of the middle phalanx. 2. Fixation of the extensor tendon at 2 different places, in central slip and also zone 5. 3. Open reduction of the PIP dislocation fracture. Surgeon: Christoph Struass MD Pain (0-10): 10/10 Other Complaints: Patient [...] and agreement. Charlene Nick PA-C 06/15/24 12:15 [facility]Per [facility] Interface Message 8handsATIONAL THERAPY HAND TREATMENT Visit #: 2 Referred to Occupational Therapy for evaluation and treatment. Referring Provider: Charlene Nick PA-C DIAGNOSIS: Right SF open fracture dislocation and extensor tendon laceration and R MF distal phalanx amputation. PROCEDURES [facility] 1. R MF revision amputation at the [...] updated medication list. 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 Identification [...] Status: INITIATED Pt (more content not included)...NormalThe [place] SystemTelephone Encounter on 87-74-1394Mfwakjnkfmjkk Authentication Interface Message TextSpoke to patient about [...] Offered to see him in clinic at [facility] for in person assessment [...] any further questions. Stevie Glasgow, PGY4 Plastic SurgeryRome Memorial Hospital SystemTranscription Multistory Learningation Interface Message TextComplaint: Returned patient call for [...] patient complaints, Instructed patient to come to [facility] today to be seen. Pt declined [...] that he is expecting a call from him.NormalThe [place] SystemTransCardinalCommerceation Interface Message TextPlease call pt. His pain is unbearable.NormalSelect [facility] [place] System Telephone Encounteron 28-72-6181Scascxliqfypc Authentication Interface Message TextSpoke with pt regarding [...] refill will not be permitted. Pt verbalized understanding.[facility] [place] SystemTransHC Rods and Customsion Easy Food Interface Message TextPt calling to request a different pain med. States was not able to sleep due to pain last night. Please call.[facility] [place] SystemAnesthesia Postprocedure Evaluationon 25-98-8177Wzsfsewdogdeb Authentication Interface Message TextAnesthesia Postoperative Assessment: Vital [...] acceptable ANESTHESIA NOTABLE EVENTS: No notable events documented.[facility] [place] SystemAnesthesia Preprocedure Evaluationon 58-69-3532Szgtizsmjfovn Multistory Learningation Interface Message TextASA: 2 No history of [...] were discussed with the patient and/or legal goodwill representative. The risks, benefits and alternatives were reviewed. Questions regarding anesthesia were answered. Patient and/or legal goodwill representative knows such anesthetics and procedures may be performed by Resident physicians, Certified Anesthesiologist Assistants, or Certified Nurse Anesthetists under the supervision of a physician. The patient /or the patient's legal goodwill representative agree with the plan for anesthesia. Fort Hamilton HospitalAnesthesia Transfer Of Careon 06-09-2024 Securities Compliance Examiner Authentication Interface Message TextPatient taken to PACU. [...] Js Gonzalez MD CAA: Augie Guevara CAA DEVELOPMENT ADVISOR: Mary Chan APRN-LAUREN Anesthesia Student: Renetta Maher [...] of the report was received. Mary Chan APRNNovant Health Charlotte Orthopaedic Hospital SystemBlood Attestationon 06-09-2024 Securities Compliance Examiner Authentication Interface Message TextBlood Attestation: ATTESTATION OF INFORMED CONSENT FOR BLOOD: The transfusion of blood and/or blood components were discussed with the patient and/or legal goodwill representative. The risks, benefits and alternatives were reviewed. Questions regarding blood transfusions were answered. The patient /or the patient's legal goodwill representative agree with the plan for transfusion of blood and/or blood components.[facility] SystemBrief Operative Noteon 59-73-7325Sqpnosiwesrpu Authentication Interface Message TextBrief Op Note Surgical Name: Tu Casiano CSN: [id number] Age: [age] year old Date of : 1995 Preoperative diagnosis(es): Pre-op Diagnosis * Hand laceration involving tendon, right, subsequent encounter [X01.995D, C23.865N] Postoperative diagnosis(es): Same Procedure(s): REPAIR, TENDON, EXTENSOR REDUCTION, OPEN, HAND Surgeon: Cely Strauss MD Sign Painter surgeon: Dr. Matta Anesthesia: General Specimen(s): * [...] the procedure. Cely Strauss MD 06/09/2024 3:13 PMNormalMarietta Memorial Hospital SystemOP Noteon 00-99-1963Csiluqlhyrqqp Authentication Interface Message TextName: TU CASIANO I MR#: [id number] ENC#: [id number] Date of Procedure: 06/09/2024 ATTENDING SURGEON: Christoph Strauss MD VENDING ROUTE SERVICER: Dr. Matta PREOPERATIVE DIAGNOSES: Right hand small [...] SAT/MedQ/Dict: 06/09/2024 15:21:21 TRANS: 06/09/2024 15:42:55 JOB: [id number] DictJob#: [id number] [facility] CenterroiWarda SystemProgress Noteson 06-09-2024 Securities Compliance Examiner Authentication Interface Message TextDr. Golden at bedside [...] discharged with instructions and home prescriptions. NormalThe [facility] SystemUS GUIDANCE NEEDLE PLACEMENTon 80-25-8433DT GUIDANCE NEEDLE PLACEMENTNarrative AND Impression EXAMINATION: US GUIDANCE NEEDLE PLACEMENT CLINICAL HISTORY: peripheral nerve block IMPRESSION: : Technical services were performed by the department of Anesthesia. Please see the Procedure note for interpretation. Please refer to the patient's chart for the results of the procedure and ultrasound.NormalThe MetroiWarda SystemUS Guidance for placement of needle in [...] Unspecified body regionOrdered By: Laila Golden on 16-42-7470AedrfYjyyhr Work Phone: assessment AND Plan Noteon 60-11-1314Cvxmfkjfujhzm Authentication Interface Message Text- Dressings removed. - Discussed upcoming surgery, risks, benefits, prognosis, and outcomes. - Dressings placed today: bacitracin, adaptic, gauze, PHU. - OT today for splinting. Maintain splint until surgery. - Pain medication refilled. - Follow up one week post operatively.NormalThe [place] SystemProgress Notes on 43-23-5913Ygftopwpbohfa Authentication Interface Message TextOpened in error. NormalThe [place] SystemTransRevolymer Interface Message Text Chief Complaint: Right hand [...] and agreement. Charlene Nick PA-C 06/02/24 12:06 [facility] SystemPAT Call Historyon 43-56-8768Ibkvkqqnbkflx Authentication Interface Message TextTelephone History Tu Johnson, [id number] 06/01/2024 28 year old 255 lbs 6' [...] surgery or procedure with anesthesia scheduled at [facility] ED Visit (05/30/2024) Partial Note- Hand [...] 5th digit. Patient was transferred here from [facility] for surgical consultation. A/P 28-year-old male with a past medical history listed above who presents to the emergency department as a transfer from [facility] for hand surgery consult. On initial presentation [...] and pain control prior to evaluation at [facility]. Hand surgery was consulted, evaluated [...] Strauss's office for surgery (schedulers messaged) - [facility] - Dispo: per ED STOP-BANG [...] laceration involving tendon, right, subsequent encounter [S61.411D, S66.391D] Current smoker [F17.200] Fracture of cervical vertebra [...] (+) obesity (-) diabetes mellitus, hypothyroidism, hyperthyroidism curber - negative ROS Neuro/Psych (+) no cerebral palsy, no attention deficit hyperactivity disorder, no intellectual disability (-) CVA, depression, bipolar disorder, anxiety/panic attacks, schizophrenia, ADHD, cerebral palsy, dementia, seizures Comment: Daily drinker - denies any w/d sx' Cardiovascular (+) 4-10 METs, hypertension (Compliant with meds) well controlled (-) exercise intolerance, past IA, CAD, CABG/stent, AAA, arrhythmia, angina, (more content not included)...NormalThe [facility] SystemTelephone Encounteron 88-48-5692Fhodmgpwyvslc Authentication Interface Message TextSpoke with pt regarding [...] POC. Preferred pharmacy for oxycodone refill is [facility]. Current rx ends 2/5-pt aware we might not be able to fill until 2/6 based on frequency of rx.NormalThe [facility] CenterroiWarda SystemTranscription Authentication Interface Message TextPlease call patient in regards to pain medication refill. Pain meds now not working so good. Please call patient TONY they run out of meds by tomorrow. [phone] MetroiWarda SystemAddendum Noteon 26-07-0597Ipygiizbxwshu Authentication Interface Message TextAddended by: CHARLENE NICK on: 05/30/2024 12:19 PM Modules accepted: [facility] HospitaliWarda SystemBASIC METABOLIC PANELon 15-61-7201Vrjvs gap [Moles/Vol]18 mmol/FVixkrx23-04Xfd [facility] CenterroHealth SystemComment on above:Performed By: #### CH8 #### S [facility] [address] [place] [address], [address]Egbqdlm [Mass/Vol]9.4 mg/dLNormal8.6-10.3The [facility] CenterroHealth SystemComment on above:Performed By: #### CH8 #### [facility] [address] [place] [address], [address]Cmmpinsi [Moles/Vol]104 mmol/GPmdvew83-063Vmj [facility] CenterroHealth SystemComment on above:Performed By: #### CH8 #### [facility] [address] [place] [address], [address]PU2 [Moles/Vol]26 mmol/ILxvygf46-69Qpn [facility] CenterroHealth SystemComment on above:Performed By: #### CH8 #### [facility] [address] [place] [address], [address]Sgcoqqsaqf [Mass/Vol]0.76 mg/dLNormal0.70-1.30The [facility] CenterroHealth SystemComment on above:Performed By: #### CH8 #### [facility] [address] [place] [address], [address]FITMGPXGK GFR (CKD-EPI)127 mL/min/1.73sqmNormal>=60The [facility] SystemComment on above:Result Comment: 2020 CKD EPI Equation using Creatinine without Race Comment: Estimated glomerular filtration rate (eGFR) is calculated without a race coefficient. Values should be interpreted in the context of the patient's full clinical presentation. Reference: 1. Damion C, Darin M, Daily DC, et al.. A Unifying Approach for GFR Estimation: Recommendations of the NKF-ASN Task Force on Reassessing the Inclusion of Race in Diagnosing Kidney Disease. AmericanJournal of Kidney Diseases 2021;79(2):268-88.e1. 2. N Engl J Med 2020 Vol. 385 Issue 19 Pages 1734-8826Performed By: #### CH8 #### S [facility] [address] [place] [address], [address]Ajgeqnj [Mass/Vol]130 mg/qUVhlk07-282Plm [facility] SystemComment on above:Performed By: #### CH8 #### S [facility] [address] [place] [address], [address]Rxygvysmx [Moles/Vol]4.1 mmol/LNormal3.5-5.0The [facility] SystemComment on above:Performed By: #### CH8 #### [facility] [address] [place] [address], [address]Qadmmr [Moles/Vol]144 mmol/VYkvioq832-396God [facility] SystemComment on above:Performed By: #### CH8 #### S [facility] [address] [place] [address], [address]Offv nitrogen [Mass/Vol]6 mg/dLLow7-25The [facility] SystemComment on above:Performed By: #### CH8 #### S [facility] [address] [place] [address], [address]Fcnco metabolic 2000 panelon 12-05-4021Vzxvf gap [Moles/Vol]18 mmol/L10 - 20MetroHealthCalcium [Mass/Vol]9.4 mg/dL8.6 [...] Reference: 1. Damion C, Darin M, Daily DC, et al.. A Unifying Approach for GFR Estimation: Recommendations of the NKF-ASN Task Force on Reassessing the Inclusion of Race in Diagnosing Kidney Disease. AmericanJournal of Kidney Diseases 2021;79(2):268-88.e1. 2. N Engl J Med 2020 Vol. 385 Issue 19 Pages 1532-2386 Glucose [Mass/Vol]130 mg/hAMamf83 - 109 mg/dLMetroHealthInterpretation and review of laboratory resultsAbnormalMetroHealthPotassium [Moles/Vol]4.1 mmol/L 3.5 - 5.0 mmol/LMetroHealthSodium [Moles/Vol]144 mmol/L136 - 145 mmol/L MetroHealthUrea nitrogen [Mass/Vol]6 mg/dLLow7 - 25 mg/dLMetroHealthMetroHealth CBC WITH DIFFERENTIALon 07-02-7561Uluhbnmnw (Bld) [#/Vol]0.1 10*3/uL0.00 - 0.20 K/uLMetroHealthBasophils/100 WBC (Bld)0.9 %NINF - 1.9 %MetroHealthEosinophils (Bld) [#/Vol]0.06 10*3/uL0.00 - 0.70 K/uLMetroHealthEosinophils/100 WBC (Bld)0.5 %0.1 - 4.0 %MetroHealthErythrocyte distribution width (RBC) [Ratio]13.1 %11.5 - 14.5 %MetroHealthHematocrit (Bld) [Volume fraction]50.4 %41.0 - 53.0 % MetroHealthHemoglobin (Bld) [Mass/Vol]17.4 g/mXIare33.9 - 16.3 g/dLMetroHealth Interpretation and review of [...] - 11.5 K/uLMetroHealthMetroHealthBasophils (Bld) [#/Vol]0.10 10*3/uLNormal 0.00-0.20The [facility] SystemComment on above:Performed By: #### CBCDSAT ####[facility] [id number] [place], [place], Basophils/100 WBC (Bld)0.9 %Normal<=1.9The [facility] HospitalHealth SystemComment on above: Performed By: #### CBCDSAT ####[facility] PATHOLOGY V[address]VVTQ[address] [place] [address], [address]Dpvjsojshev (Bld) [#/Vol]0.06 10*3/uLNormal 0.00-0.70The [facility] HospitalHealth SystemComment on above:Performed By: #### CBCDSAT ####[facility] PATHOLOGY DNVLPQPQKM[address] [place] [address], Eosinophils/100 WBC (Bld)0.5 %Normal0.1-4.0The [facility] HospitalHealth SystemComment on above:Performed By: #### CBCDSAT ####[facility] PATHOLOGY XICBBUNELN[address] [place] [address], [address]Lzyufnxumdq distribution width (RBC) [Ratio]13.1 % Fztvdr59.5-14.5The [facility] SystemComment on above:Performed By: #### CBCDSAT ####[facility] PATHOLOGY WMOLDPNGPZ[address] [place] [address], Hematocrit (Bld) [Volume fraction]50.4 %Wkgiie61.0-53.0The [facility] Comment on above:Performed By: #### CBCDSAT ####[facility] PATHOLOGY XIUAPKTGTG[address] [place] [address], [address]Becddgzrbw (Bld) [Mass/Vol]17.4 g/dL High13.9-16.3The [facility] SystemComment on above:Performed By: #### CBCDSAT ####[facility] PATHOLOGY ZAOCOJRZFO[address] [place] [address], Lymphocytes (Bld) [#/Vol]3.64 10*3/uLNormal1.00-4.80The [facility] Comment on above:Performed By: #### CBCDSAT ####[facility] PATHOLOGY JJOBKBTAEM[address] [place] [address], [address]Uoqaljmbkur/100 WBC (Bld)33.3 %Normal 24.0-44.0The [facility] SystemComment on above:Performed By: #### CBCDSAT ####[facility] PATHOLOGY APEGRAAVPZ0152 [place], [address]YAW (RBC) [Entitic mass]33.1 eaXvzfvi39.0-34.0The [facility] HospitalHealth SystemComment on above:Performed By: #### CBCDSAT ####[facility] PATHOLOGY VJAGWZPSCC[address] [place] [address], [address]BZBC (RBC) [Mass/Vol]34.5 g/xTJytoeb24.0-35.9The [facility] HospitalHealth SystemComment on above:Performed By: #### CBCDSAT ####[facility] PATHOLOGY LARXMNCIUT[address] [place] [address], [address]NOP (RBC) [Entitic vol] 96 nQRjogcu32-610Zcp [facility] SystemComment on above:Performed By: #### CBCDSAT ####[facility] PATHOLOGY CMLSGZITIA[address] [place] [address], [address]EOYEFTKQ DISTRIBUTION WVOJG02Slyxtr<=20The [facility] HospitalHealth SystemComment on above:Performed By: #### CBCDSAT ####[facility] PATHOLOGY VFOXJHJSID[address] [place] [address], [address]Mebdzjyek (Bld) [#/Vol]0.75 10*3/uLNormal0.20-1.00 The [facility] SystemComment on above:Performed By: #### CBCDSAT ####[facility] PATHOLOGY DGKTHQYXSZ[address] [place] [address], [address]Oggbgfyqd/100 WBC (Bld)6.9 %Normal2.0-11.0The [facility] SystemComment on above:Performed By: #### CBCDSAT ####[facility] PATHOLOGY LSDCRUGSNK[address] [place] [address], [address]Aamhwyjxkjr (Bld) [#/Vol]6.38 10*3/uLNormal1.50-8.00The [facility] SystemComment on above:Performed By: #### CBCDSAT ####[facility] PATHOLOGY JCWTDTUKKS[address] [place] [address], [address]Ehcwsplvtfo/100 WBC (Bld)58.4 %Wqsmmw61.0-76.0The [facility] SystemComment on above:Performed By: #### CBCDSAT ####[facility] PATHOLOGY RGCLXESAFD8112 [place], [address]Yxjxgvmp mean volume (Bld) [Entitic vol]9.4 fLNormal7.5-11.2The [facility] CenterroHealth SystemComment on above:Performed By: #### CBCDSAT ####[facility] PATHOLOGY AIUGKOWGZH[address] [place] [address], [address]Muijayvnv (Bld) [#/Vol] 200 10*3/cEYuyhxg805-021Jhn [facility] SystemComment on above:Performed By: #### CBCDSAT ####[facility] PATHOLOGY KABQGACSSG[address] [place] [address], [address]PKE (Bld) [#/Vol]5.25 10*6/uLNormal4.50-5.90The [facility] Comment on above:Performed By: #### CBCDSAT ####[facility] PATHOLOGY SKGYSUPBII[address] [place] [address], [address]YET (Bld) [#/Vol]10.9 10*3/uLNormal 4.5-11.5The [facility] SystemComment on above:Performed By: #### CBCDSAT ####[facility] PATHOLOGY QXFYSCDOKJ[address] [place] [address], Consultson [phone] Authentication Interface Message TextPLASTIC SURGERY HAND CONSULT [...] where decision was made to transfer to [facility]. The patient reports pain 10/10pm [...] good approximation. Xeroform (more content not included)...NormalThe [facility]'s Hospital SystemED Clinical Summaryon [id number] Clinical SummaryED Clinical Summary [place] [id number] ED Clinical Summary Person Information Name: TU CASIANO I [place] Age: 28 Years : 1995 Sex: Male Language: Macedonian PCP: NAHOMI CORRALES CNP Marital Status: Single Phone: [phone] Visit Id: Visit Reason: Hand pain-swelling; Finger [...] 05/30/2024 00:10:36 05/30/2024 00:10:36 05/30/2024 00:10:36 ADDRESS: [address] [place] [id number] PHYS DOC NOTES: MEDICAL INFORMATION: Prescriptions Given: [...] of middle phalanx of finger of right handHannibal Regional Hospital Medical CenterED Patient Education Noteon [id number] Patient Education NoteED Patient Education NoteNoCarondelet Health Medical CenterED Patient Summary on [id number] Patient SummaryED Patient Summary [address] [address] Patient Discharge Instructions Person Information Name: TU CASIANO I Age: 28 Years Arrival Date: 05/29/2024 21:25:29 Discharge Diagnosis: Open displaced fracture of middle phalanx of finger of right hand Primary Care Physician: NAHOMI CORRALES CNP Provider Information Primary Provider: Claudia Sierra DO Advanced Slab Miller Operator:None The exam and treatment you received in the Emergency Department were for an urgent problem and are not intended as complete care. It is important that you follow up with a doctor, nurse practitioner,or physician???s medical receptionist assistant for ongoing care. If your symptoms [...] opioids can be used to help relieve prpcchqy-ze-pmalgu pain and are often prescribed following a [...] be struggling with addiction, tell your health child care attendant school and askfor guidance or call [facility]???S National Helpline at 7-388-929-MNTN. v Source: Department of Health and [facility] (more content not included)...[facility] CenterED Provider Noteson [id number] Authentication Interface Message TextEMERGENCY DEPARTMENT - VISIT NOTE HISTORY OF PRESENT ILLNESS Chief Complaint Patient presents with Hand/finger symptoms Hand injury from a table saw, sent from [employer] Assistant: not needed - patient preferred language is Macedonian. The history is provided by the Patient. [...] 5th digit. Patient was transferred here from [facility] for surgical consultation. On chart review, patient [...] the emergency department as a transfer from [facility] for hand surgery consult. On initial presentation [...] and pain control prior to evaluation at [facility]. Hand surgery was consulted, evaluated [...] and importanc (more content not included)...Normal The [facility]iWarda SystemNo Panel Informationon [id number] and review of laboratory resultsNormalMetroHealthMetroCleveland Clinic FoundationPARTIAL THROMBOPLASTIN TIMEon 26-32-5028hKLA Coag (Bld) [Time]30 sMetroHealthaPTT Coag (Bld) [Time]30 sNormal 25-37The [facility] SystemComment on above:Performed By: #### APTT, PT ####[facility] PATHOLOGY GGKRCEGSOB[address] [place] [address], [address]TUVZQAOATVF TIME AND INRon 11-73-0928QSD Coag (PPP) [Relative time]1.04 {INR}0.90 - 1.10 MetroHealthPT Coag (PPP) [Time]11.6 sMetroHealthINR Coag (PPP) [Relative time] 1.04 {INR}Normal0.90-1.10The [facility] SystemComment on above:Performed By: #### APTT, PT ####[facility] PATHOLOGY UXMMRPCMFZ[address] [place] [address], [address]CI Coag (PPP) [Time]11.6 sNormal9.7-12.9The [facility] SystemComment on above:Performed By: #### APTT, PT ####[facility] PATHOLOGY OEWUTZDWMR[address] [place] [address], [address]RLOM AND SCREENon 30-02-3158EGF and Rh group Nom (Bld)Blood group O Rh(D) positiveMetroHealthABO and Rh group Nom (Bld)No Previous ResultsMetroHealthBlood group antibody screen QlNegative MetroHealthMetroHealthABO and Rh group Nom (Bld)Blood group O Rh(D) positive NormalThe [facility] Children's Hospital SystemComment on above:Performed By: #### TS #### S PATHOLOGY LABORATORY [address] [place], [address]HGK and Rh group Nom (Bld)No Previous ResultsNormalThe [facility] Psychiatric CenterroCleveland Clinic Foundation SystemComment on above:Performed By: #### TS #### S PATHOLOGY LABORATORY [address] [place], [address]WWQI INTNegativeNormUniversity Hospitals Samaritan Medical Centere [facility] SystemComment on above:Performed By: #### TS #### S PATHOLOGY LABORATORY [address] [place] [address], [address]TJ HAND RIGHT 2 VIEWSon [id number] HAND RIGHT 2 VIEWS EXAMINATION: XR HAND [...] images and agree with the resident's interpretation.NormalThe MetroHealth SystemXR Hand - right 2 Viewson 05-30-2024 [...] images and agree with the resident's interpretation. [facility]iatric CenterroCleveland Clinic FoundationRadiology Study observation (narrative)MetroHealthXR Hand - right 2 ViewsOrdered By: German Pagan on 36-52-9532SzakgMmjwrv Work Phone: XR Hand 3+ Views Righton [id number] Hand 3+ Views RightExam Date/Time: 05/29/2024 22:08 [...] NANDA Technologist: [facility] CenterED Note-Physicianon [id number] Note-PhysicianED Note-Physician Basic Information Time Seen: Claudia Sierra DO Lizzy 05/29/2024 21:38 Chief Complaint pt was using saw and cut right third and fifth finger. pt needs tdap. bleeding controlled. History of Present Illness Patient is a 28-year-old male ndqhw-stcg-mdgcxjev presenting to the ED for evaluation of [...] and Complexity of Problems Differential Diagnosis: [] [facility] Data External documents reviewed: [] My [...] [facility]. Shared decision making: [] Code status: [...] Discharge Condition Fair Discharge Disposition Transfer to [facility] Discharge Prescription List Prescriptions No active [...] Alcohol use i (more content not included)... [facility] HospitalComment on above:Result Comment: Electronically Signed By: Claudia Sierra DO\Date and Time Signed: 05/29/24 22:33 EST Registrationon [id number] [id number] Health West Hospital Vital Signs Date TimeVital SignValuePerforming VnsdpugchYhqtvwjg09-02-1092 13:00-0500Body phgcty860.88 cmAllison Leo APRN Work Phone: [facility]11-04-2025 13:00-0500 Body mass index (BMI) [Ratio]33.7 kg/h7Ajzrwflc Rohrbacher ESCALATOR SERVICE MECHANIC Work Phone: [phone] [place], [place] 7542111-04-2025 13:00-0500 Body jwbuva735.94 kgAllison Montoyaacher ESCALATOR SERVICE MECHANIC Work Phone: [phone] [place], [place] 1213111-04-2025 13:00-0500 Diastolic blood qgcavwen55 mm[Hg]Allison Qunitanillar ESCALATOR SERVICE MECHANIC Work Phone: [phone] [place], [place] 1213111-04-2025 13:00-0500 Heart rate86 /Abi Lópezrbacher ESCALATOR SERVICE MECHANIC Work Phone: [phone] [place], [place] 1213111-04-2025 13:00-0500 Respiratory rate14 /Abi Montoyaacher ESCALATOR SERVICE MECHANIC Work Phone: [phone] [place], [place] 1213111-04-2025 13:00-0500 SaO2% (BldA) [Mass fraction]97 %Allison Quintanillar ESCALATOR SERVICE MECHANIC Work Phone: [phone] [place], [place] 1213111-04-2025 13:00-0500 Systolic blood jxnqqbud119 mm[Hg]Allison Quintanillar ESCALATOR SERVICE MECHANIC Work Phone: [phone] [place], [place] 1213110-23-2025 10:12-0400 Body .88 cmAllison Lópezrbacher ESCALATOR SERVICE MECHANIC Work Phone: [phone] [place], [place] 1213110-23-2025 10:12-0400 Body mass index (BMI) [Ratio]33.2 kg/k8JdtxkgduAllison Lópezrbacher ESCALATOR SERVICE MECHANIC Work Phone: [phone] [place], [place] 1213110-23-2025 10:12-0400 Body bfdhmi673.13 kgAllison Lópezrbacher ESCALATOR SERVICE MECHANIC Work Phone: [phone] [place], [place] 1213110-08-2025 13:02-0400 Body abhnsa601.88 cmAllison Lópezrbacher ESCALATOR SERVICE MECHANIC Work Phone: [phone] [place], [place] 1213110-08-2025 13:02-0400 Body mass index (BMI) [Ratio]33.2 kg/n6EalyfcutAllison Montoyaacher ESCALATOR SERVICE MECHANIC Work Phone: [phone] [place], [place] 1213110-08-2025 13:02-0400 Body izemajsoeeq02.3 [degF]Allison Lópezleathalincolnmarcela ESCALATOR SERVICE MECHANIC Work Phone: [phone] [place], [place] 1213110-08-2025 13:02-0400 Body kldxed026.13 kgAllison Leo ESCALATOR SERVICE MECHANIC Work Phone: [phone] [place], [place] 1213110-08-2025 13:02-0400 Diastolic blood haefbkgm79 mm[Hg]Allison Lópezleathalincolnr ESCALATOR SERVICE MECHANIC Work Phone: [phone] [place], [place] 1213110-08-2025 13:02-0400 Heart rate95 /Abi Lópezleathaacher ESCALATOR SERVICE MECHANIC Work Phone: [phone] [place], [place] 1213110-08-2025 13:02-0400 SaO2% (BldA) [Mass fraction]95 %Allison Lópezleathalincolnmarcela ESCALATOR SERVICE MECHANIC Work Phone: [phone] [place], [place] 1213110-08-2025 13:02-0400 Systolic blood nqrviqxb659 mm[Hg]Allison Quintanillar ESCALATOR SERVICE MECHANIC Work Phone: [phone] [place], [place] 1213106-30-2025 14:58-0400 Body eavgch819.88 cmAllison Lópezleathalincolnr ESCALATOR SERVICE MECHANIC Work Phone: [phone] [place], [place] 1213106-30-2025 12:06-0400 Diastolic blood nyxjpbfr64 mm[Hg]Allison Lópezleathalincolnr ESCALATOR SERVICE MECHANIC Work Phone: [phone] [place], [place] 1213106-30-2025 12:06-0400 Heart rate72 /Abi Lindsayacher ESCALATOR SERVICE MECHANIC Work Phone: [phone] [place], [place] 1213106-30-2025 12:06-0400 Respiratory rate16 /Romemanjula Montoyaacher ESCALATOR SERVICE MECHANIC Work Phone: [phone] [place], [place] 1213106-30-2025 12:06-0400 SaO2% (BldA) [Mass fraction]95 %Allison Quintanillamarcela ESCALATOR SERVICE MECHANIC Work Phone: [facility]06-30-2025 12:06-0400 Systolic blood jphryzlh365 mm[Hg]Allison Leo ESCALATOR SERVICE MECHANIC Work Phone: [facility]06-30-2025 08:00-0400 Body xlugrkdgrbe90.9 [degF]Allison Leo ESCALATOR SERVICE MECHANIC Work Phone: [facility]06-30-2025 06:00-0400 Body omvfct847 kgAllison Leo ESCALATOR SERVICE MECHANIC Work Phone: [facility]06-10-2025 10:14-0400 Body rgtmuk125.88 cmP[facility]06-10-2025 10:14-0400Body mass index (BMI) [Ratio]34 kg/q2TzuhzmcxyPike Community Hospital06-10-2025 10:14-0400Body mycxydpokcx26.3 [degF][facility]06-10-2025 10:14-0400Body yxwgfn612.62 kgP[facility] Hospital06-10-2025 10:14-0400Diastolic blood mm[Hg][facility] 10-05-2024 10:14-0400Heart rate90 /minPike Community Hospital 10-05-2024 10:14-5278CmB8% (BldA) [Mass fraction]95 %[facility]06-10-2025 10:14-0400Systolic blood gazlorys056 mm[Hg][facility]05-12-2025 09:44-0400Body qwcamg372.88 cmPike [facility] Hospital05-12-2025 09:44-0400Body mass index (BMI) [Ratio]34.5 kg/m2 [facility]05-12-2025 09:44-0400Body mzdcuuobpdf67.3 [degF][facility]05-12-2025 09:44-0400Body .66 kg [facility]05-12-2025 09:44-0400Diastolic blood uaragtgj65 mm[Hg][facility]05-12-2025 09:44-0400Heart rate87 /min [facility]05-12-2025 09:44-8536PeE1% (BldA) [Mass fraction]94 %[facility]05-12-2025 09:44-0400Systolic blood xakhrwap628 mm[Hg][facility]03-28-2025 15:00-0400 Diastolic blood ikizydix05 mm[Hg]Cely Strauss MD Work Phone: [phone]()[phone]gPyvxxt48-76-7626 15:00-0400Heart rate58 /minCely Strauss MD Work Phone: [phone]()[phone]qSkaqag01-83-5545 15:00-0400Respiratory rate11 /minCely Strauss MD Work Phone: [phone]()[phone]aKpvfki93-90-7664 15:00-5087OtD5% (BldA) [Mass fraction]95 %Cely Strauss MD Work Phone: [phone]()[phone]gFpcmwz29-51-9875 15:00-0400Systolic blood oxsxlazh394 mm[Hg]Cely Strauss MD Work Phone: [phone]()[phone]oTkvjoh58-68-1924 14:25-0400Body nrqlvhuhdll18.11 [degF]Cely Strauss MD Work Phone: [phone]()[phone]nYsagqq26-19-6933 12:31-0400Body bgnqow100.9 Naheed Strauss MD Work Phone: [phone]()[phone]kDhtmsl98-64-2635 12:31-0400Body mass index (BMI) [Ratio]33.91 kg/m2Cely Strauss MD Work Phone: [phone]()[phone]xPikeji48-86-2049 12:31-0400Body vjaher738.4 kgCely Strauss MD Work Phone: [phone]()[phone]zTkksot67-39-5733 17:13-0500Body iunonarziel06.1 [degF]Cely Strauss MD Work Phone: [phone]()[phone]mFsvkyy33-08-1666 17:13-0500Diastolic blood xwhaotgo156 mm[Hg]Cely Strauss MD Work Phone: 1([phone]007EcrkmOnvesg97-83-4586 17:13-0500Heart rate69 /minCely Strauss MD Work Phone: [phone]775DzodlEknpgi21-80-9559 17:13-0500Respiratory rate20 /minCely Strauss MD Work Phone: [phone]jKuexrh18-34-0359 17:13-5761XmU0% (BldA) [Mass fraction]93 %Cely Strauss MD Work Phone: [phone]zXutkin62-52-6824 17:13-0500Systolic blood otyolzqj908 mm[Hg]Cely Strauss MD Work Phone: [phone]114AiwtvBgxtii87-21-2124 10:57-0500Body epngrn398.9 Naheed Strauss MD Work Phone: [phone]bZydehu44-29-1524 10:57-0500Body mass index (BMI) [Ratio]34.58 kg/m2Cley Strauss MD Work Phone: [phone]520SnheyDxigsy11-21-0780 10:57-0500Body kowidm803.67 kg Cely Strauss MD Work Phone: 1(514) [phone]139MykwaCidqns43-53-8913 08:00-0500Body znjbek259.9 cm Elma Parra RXSpgleBawchk28-17-4547 08:00-0500Body mass index (BMI) [Ratio] 34.58 kg/a7Izdzbr Jerrylucrecia IIQfwqvMckzxs09-76-0594 08:00-0500Body wdnejq914.67 kgElma Jerrylucrecia IABkpiuCibrya96-61-7526 01:34-0500Body ltenymbjvsf42.7 [degF] Leonardo Roberts MD Work Phone: [phone]1AmtxzMobgrg94-18-7616 01:34-0500Diastolic blood cxlcehoo587 mm[Hg]Leonardo Roberts MD Work Phone: 1(188) [phone]79-965623GxnwcKytbop22-94-0321 01:34-0500Heart pfwg701 /min Leonardo Roberts MD Work Phone: 1([phone]) [phone]9-442391SeonkUwspni57-98-9717 01:34-0500Respiratory rate16 /minLeonardo Roberts MD Work Phone: 1(161) [phone]28-842958GkkvvEsyrro95-70-2033 01:34-6408LuX8% (BldA) [Mass fraction]93 %Leonardo Roberts MD Work Phone: 1([phone]0-218275OdieaDdoite99-97-0113 01:34-0500Systolic blood zlkuulza970 mm[Hg]Leonardo Roberts MD Work Phone: 1(951) [phone]5-612362TziuuImtcnk24-26-6830 00:03-0500Diastolic blood kvdykllu006 mm[Hg]Kaylinn Dokken [address]02-02-2025 00:03-0500Heart gsyr518 /minKaylinn Dokken [address] [place], [place] 0077502-02-2025 00:03-0500Mean blood njyvrfux199 mm[Hg]Kaylinn Dokken [address] [place], [place] 0077502-02-2025 00:03-0500 Respiratory rate22 /minKaylinn Dokken [address] [place], [place] 0077502-02-2025 00:03-5724WkS3% (BldA) [Mass fraction]95 %Kaylinn Dokken [address] [place], [place] 0077502-02-2025 00:03-0500 Systolic blood vnaiusux645 mm[Hg]Kaylinn Dokken [address] [place], [place] 0077502-01-2025 23:38-0500Body ljkdefwciaw98.96 [degF]Kaylinn Dokken [address] [place], [place] 0077502-01-2025 23:38-0500 Diastolic blood mm[Hg]Kaylinn Dokken [address] [place], [place] 9213202-01-2025 23:38-0500Heart rate98 /minKaylinn Dokken [address] [place], [place] 9213202-01-2025 23:38-0500Mean blood hltfuoyp861 mm[Hg]Kaylinn Dokken [address] [place], [place] 9213202-01-2025 23:38-0500 Respiratory rate22 /minKaylinn Dokken [address] [place], [place] 9213202-01-2025 23:38-3677ZkK0% (BldA) [Mass fraction]95 %Kaylinn Dokken [address] [place], [place] 9213202-01-2025 23:38-0500 Systolic blood evzpfssv268 mm[Hg]Kaylinn Dokken [address] [place], [place] 9213202-01-2025 23:08-0500 Diastolic blood tjbllfud772 mm[Hg]Kaylinn Dokken [address] [place], [place] 9213202-01-2025 23:08-0500Heart rate93 /minKaylinn Dokken [address] [place], [place] 9213202-01-2025 23:08-0500Mean blood jultnjfu495 mm[Hg]Kaylinn Dokken [address] [place], [place] 9213202-01-2025 23:08-0500 Respiratory rate20 /minKaylinn Dokken [address] [place], [place] 9213202-01-2025 23:08-8923BhX9% (BldA) [Mass fraction]95 %Kaylinn Dokken [address] [place], [place] 9213202-01-2025 23:08-0500 Systolic blood hgrbtuki069 mm[Hg]Claudia Sierra [facility]02-01-2025 21:58-0500Body qorapzsvedn42.96 [degF]Claudia Sierra [facility]02-01-2025 21:38-0500Body mxicrrlyoww37.96 [degF]Claudia Sierra [facility]02-01-2025 21:38-0500Heart xchg013 /minClaudia Sierra [facility]12-10-2023 11:05-0500Body ngerev420.8 Asa Yu Other [employer] Other 12-10-2023 11:05-0500Body mass index (BMI) [Ratio] 32.48 kg/v6EreikyElizabeth Yu Other [employer] Other 12-10-2023 11:05-0500Body kwcvwghgsoa92.7 [degF]Elizabeth [facility] Other 12-10-2023 11:05-0500Body awjqos618.7 kgElizabeth Yu Other [facility] Other 12-10-2023 11:05-0500Diastolic blood plgvdkpe068 mm[Hg]Elizabeth Lowrymond Other [employer] Other 12-10-2023 11:05-0500Respiratory rate18 /minElizabeth Yu Other [employer] Other 12-10-2023 11:05-7888VlZ1% (BldA) [Mass fraction]97 % Elizabeth Yu Other [employer] Other 12-10-2023 11:05-0500Systolic blood xtkdsokj761 mm[Hg] Elizabeth [facility] [employer] Other 02-26-2023 00:00-0500Diastolic blood ggklwifi84 mm[Hg] Sd Joi [address] [place], [place] 0077502-26-2023 00:00-0500Heart rate97 /minNoah Joi [address] [place], [place] [id number] 00:00-1453XxS0% (BldA) [Mass fraction]97 %Sd Joi [address] [place], [place] [id number] 00:00-0500 Systolic blood zsiimhsd193 mm[Hg]Sd Joi [address] [place], [place] [id number] 23:00-0500 Diastolic blood snwlulxc54 mm[Hg]Sd Joi [address] [place], [place] [id number] 23:00-0500Heart rate98 /minNoah Joi [address] [place], [place] [id number] 23:00-0260PtZ6% (BldA) [Mass fraction]98 %Sd Joi [address] [place], [place] [id number] 23:00-0500 Systolic blood ycfvwzit890 mm[Hg]Sd Joi [address] [place], [place] [id number] 21:25-0500Body xyahxzkdeal44.88 [degF]Sd Joi [address] [place], [place] [id number] 21:25-0500 Diastolic blood fpaddefx73 mm[Hg]Sd Joi [facility]02-25-2023 21:25-0500Heart rate99 /minNomukul Joi [facility]02-25-2023 21:25-0500 Respiratory rate16 /minNomukul Joi [facility]02-25-2023 21:25-7529ZlU9% (BldA) [Mass fraction]96 %Sd Joi [facility]02-25-2023 21:25-0500 Systolic blood vrgnkdej748 mm[Hg]Sd Tamez [facility] Encounters Encounter DateEncounter [facility] ProviderFacilityStart: [id number] examination doneRogeriomanjula Leo [employer]ALATOR [employer]CH[employer]IC Work Phone: [facility]: [facility]25 End: [id number] Rohrbacher ESCALATOR SERVICE MECHANIC Work Phone: -[facility] Kingwoodtart: 03-01-2025 End: 12-66-3373Citcgrl encounter procedureJeravindergriffin Lindsayacher ESCALATOR SERVICE MECHANIC [facility] Work Phone: Start: 07-03-9444Cul-patient / Non-visitOutside Provider-[facility] Work Phone: Start: 02-17-2025 End: 87-56-3089zpkjbafiduSmdkzmjr Maribelrbacher ESCALATOR SERVICE MECHANIC Work Phone: -[facility]: 02-17-2025 End: 46-46-4631Mlvfemt encounter Kapil Fonseca DO-[facility] [place] Work Phone: Start: 02-15-2025 End: 79-91-9923Ewoafdu encounter Kapil Fonseca DO-[facility] [address] Closed Work Phone: Start: 02-15-2025 End: 50-89-3441azdlnotlhiSiwnxevp Rohrbacher ESCALATOR SERVICE MECHANIC Work Phone: -[facility] [address] ClosedStart: 02-03-2025 End: 88-57-7629kcmelskoaiTuoiqbtg Maribelrbacher ESCALATOR SERVICE MECHANIC Work Phone: [facility] Work Phone: Start: 02-03-2025 End: 25-19-5923Oirsaza encounter Kapil Fonseca DO-[facility] [place] Work Phone: Start: 02-02-2025 End: 77-58-2541yiskrbrujpNegkrdcr Maribelrbacher ESCALATOR SERVICE MECHANIC Work Phone: [facility] Work Phone: Start: 02-02-2025 End: 17-18-4545Nlqmxrl encounter procedureAllison Montoyaacher ESCALATOR SERVICE MECHANIC [facility] Work Phone: Start: 72-90-1811Szb-patient / Non-visitTico De La Cruz MD -[facility] Work Phone: Start: 10-23-2024 End: 22-37-6830Bgcckdzprf and management of inpatientKristopher Ez Facility:[facility]: 44-68-3376Caf-patient / Non-visitAllison Montoyaacher ESCALATOR SERVICE MECHANIC [employer]LECTR[employer] MOLDER-[facility] Work Phone: Start: 10-05-2024 End: 46-58-6343fgngkrcaghYnfgucazhKettering Health [facility] Work Phone: Start: 10-05-2024 End: 54-67-8206Xufzujp encounter procedureGal[facility] Work Phone: Start: 09-06-2024 End: 89-92-2162ewdmrxpkxjLgobzeenjKettering Health Miamisburg Work Phone: Start: 09-06-2024 End: 01-31-6821Dlaehkh encounter procedureUnc Health [facility] Phys[facility] GroupKindred [facility] Work Phone: Start: 08-01-2024 End: 57-44-7844OikcjbOrgwoej Wozniak PA-C Work Phone: [facility] Plastic SurgeryComment on above:RefillStart: 07-23-2024 End: 30-64-9601cenmtmnxxgZQJRAUH PROVIDERFacility:METROHealthStart: 07-23-2024 End: 17-22-9116Pozkczafyl hospital visit by Andrew Strauss MD Work Phone: [facility] RadiologyStart: 07-23-2024 End: 69-07-1895dnzwvfiigiYIE TOTONCHIFacility:METROHealthStart: 07-23-2024 End: 07-70-0741Omzjkebbmz hospital visit by Andrew Strauss MD Work Phone: [facility] Ambulatory SurgeryComment on above:Acute pain due to injuryRefillStart: 98-20-6021excqfplffjWPWLNWH PROVIDER Facility:[facility]Start: 32-74-0751Joblhbwoi for other preprocedural examinationUNKNOWN PROVIDERThe [facility] SystemStart: 07-16-2024 End: 59-75-8197Mqnaswttm to same day surgery centerCharlene Nick PA-C Work Phone: [facility] Plastic SurgeryStart: 07-09-2024 End: 61-20-5033Vjlpplwkjl hospital visit by physicianBv Op X-Ray 1 Work Phone: [facility] RadiologyComment on above: Traumatic amputation of finger, initial encounter; Hand laceration involving tendon, right, subsequent encounterStart: 07-09-2024 End: 78-96-3439Yaygvoo encounter procedureCharlene Nick PA-C Work Phone: [facility] Plastic SurgeryComment on above:Traumatic amputation of finger, initial encounter (Primary Dx); Hand laceration involving tendon, right, subsequent encounter; Aftercare following surgeryStart: 07-09-2024 End: 12-52-9737bfiktiwzahDWCRSUH PROVIDERFacility:METROHealthStart: 06-26-2024 End: 94-64-0446Csfxhq encounterTyler Bilinovic OTR/L, CHTMetroHealthStart: 06-24-2024 End: 72-76-7146AbbfqyNpkljup Wozniak PA-C Work Phone: [facility] Plastic SurgeryComment on above:RefillStart: 06-23-2024 End: 55-36-6304zelhpvxwtxVQYTOKN PROVIDERFacility:[facility]ENTERROHealthStart: 06-23-2024 End: 50-14-0415Nphbjbv encounter procedureCharlene Nick PA-C Work Phone: [facility] Plastic SurgeryComment on above:Traumatic amputation of finger, initial encounter (Primary Dx); Hand laceration involving tendon, right, subsequent encounter; Aftercare following surgeryStart: 11-02-8195zvtzmnibzuEEQVVSM PROVIDER Facility:[facility] CenterStart: 06-15-2024 End: 32-28-6741lwakplesxcKhcpn Federico OTR/L, CHT Work Phone: [facility] Occupational TherapyComment on above:OT Treatment; Splint/orthotic IssueStart: 06-15-2024 End: 64-04-0420Xkxpmoh encounter procedureCharlene Nick PA-C Work Phone: [facility] Plastic SurgeryComment on above:Traumatic amputation of finger, initial encounter (Primary Dx); Hand laceration involving tendon, right, subsequent encounter; Aftercare following surgeryStart: 06-11-2024 End: 48-16-8052FvndccYlwjko Bahat MD Work Phone: [facility] Plastic SurgeryComment on above:Refill Start: 06-10-2024 End: 38-82-4815Zoovsikug Vibha Strauss MD Work Phone: [facility] Plastic SurgeryStart: 06-09-2024 End: 82-80-7732vvrdpuefobNTU TOTONCHIFacility:METROHealthStart: 06-09-2024 End: 75-51-6002Rlndnujlxr hospital visit by Andrew Strauss MD Work Phone: [place] RadiologyStart: 06-09-2024 End: 39-55-4814oxnxtvogcnGNT TOTONCHIFacility:METROHealthStart: 06-09-2024 End: 19-60-6756Psmztovhms hospital visit by Andrew Strauss MD Work Phone: [facility] RadiologyStart: 06-09-2024 End: 94-20-3813hkskcrhjlfZPN TOTONCHIFacility:METROHealthStart: 06-09-2024 End: 53-05-4303Mdgqpbaymy hospital visit by Andrew Strauss MD Work Phone: [facility] Main ORComment on above:Open displaced fracture of middle phalanx of left index finger with routine healing, subsequent encounter (Primary Dx); Postoperative painStart: 06-02-2024 End: 14-84-3984Oykdgfd encounter procedureTyler Bilinovic OTR/L, CHTMetrProtestant Hospitalth Falls [place] Occupational TherapyComment on above:OT Evaluation (Clinic 1)Start: 06-02-2024 End: 96-31-7199vnkwmlpqdcElyfv Bilinovic OTR/L, CHTMetrOKealth [place] Occupational TherapyStart: 06-02-2024 End: 67-97-7360Gpmqyo outpatient new 45 Esvin Nick PA-C Work Phone: [facility] Plastic SurgeryComment on above:Hand laceration involving tendon, right, subsequent encounter (Primary Dx); Traumatic amputation of finger, initial encounter; Acute pain due to injuryStart: 06-02-2024 End: 03-45-5902apkpoyzcqrNSWTRCT PROVIDERFacility:METROHealthStart: 06-01-2024 End: 03-98-8741Etbuzhlvz encounterCely Strauss MD Work Phone: [facility] Plastic SurgeryStart: 06-01-2024 End: 59-08-5849Pmhviyq evaluation of patient and reportSravinder Parra RN [facility] Pre-Admission TestingComment on above:Pre-op evaluation (Primary Dx)Start: 06-01-2024 End: 42-99-6246Rqlqroxxixqkh examination Frankie Parra [facility] Start: 41-08-5337dilkwxjbjwDMYLWLF PROVIDERFacility:[facility] CenterStart: 05-30-2024 End: 73-44-0006Vxqzdtxxe to same day surgery centerStevie Paiz MD Work Phone: [facility] Plastic SurgeryStart: 24-61-2801Xndcqkhwg department patient visitUNKNOWStephane PROVIDERFacility:[facility] CenterStart: 05-30-2024 End: 61-04-6586Geuknacxs department patient visitLeonardo Roberts MD Work Phone: [facility] Emergency MedicineComment on above: Hand/finger symptoms (Hand injury from a table saw, sent from OSH)Start: 05-29-2024 End: 45-14-5157Nbaachzfg department patient visitRileyfigueroarenzo [facility] Start: 09-19-2023 End: 11-46-9648mxlveaqhfzGiecwog HARWOODFacility:[facility]ational Health and WellnessStart: 61-08-0082giyujhcovyCfqsljq [facility] HOSPITALWOODFacility:[facility] Health and WellnessStart: 04-06-2023 End: 34-39-4750niaitaeekrUdlcwe Dymond Other [facility] [place] [employer] Other Start: 76-74-8147Cecqqi outpatient new 10 minutes Elizabeth YuFPAnupama Urgent Care ClydeStart: 06-24-2022 End: 01-30-4031Pkwlhmf encounter Taiwo CORRALES 060-9337Eayuve-SfghbHolzer Health System [facility] [place] Start: 06-22-2022 End: 62-49-7403Vxjtjraef department patient visitSd Tamez [facility] Start: 07-29-2016 End: 30-74-4969MxhkqqvzagUUDETMOP UNKNOWNFacility:[facility] Procedures DateProcedureProcedure DetailPerforming ClinicianStart: 65-49-4091HBO of right kneeJenngriffin Leo APRN Work Phone: Start: 77-03-5931Qhbubmrvsjo up to 1 hour physician/qhp timeCharlene Nick PA-C Work Phone: Start: 07-23-2024 End: 65-18-4709Cdcdtdr implant LaiCely Strauss MD Work Phone: Start: 99-78-3508Mnltp fingr minimum 2 Sari Nick PA-C Work Phone: Start: 48-32-0317Pv guidance needle placement img s&i Chuck Lovell MD Work Phone: Start: 44-47-6899Djpergjjkrn up to 1 hour physician/qhp Matheus Matta MD Work Phone: Start: 06-09-2024 End: 98-46-0342KOZGFHANL, OPEN, HANDCely Strauss MD Work Phone: Start: 06-09-2024 End: 02-75-6304HVKPGH, TENDON, EXTENSORCely Strauss MD Work Phone: Start: 92-89-2430Ggfzz hand 2 Omega Zamora MD Work Phone: Start: 33-28-9826Luukv typing, ABO, Rho(D) and RBC antibody screeningLeonardo Roberts MD Work Phone: Start: 95-35-2393Juvxvkwwyavsht time partial plasma/whole bloodLeonardo Roberts MD Work Phone: Start: 08-43-7839IhennwjbqvleeRuix Joi deniesSd Joi Plan of Treatment DateCare ActivityDetailAuthorStart: 12-13-8199Doqsnmrx (RZV) Vaccine (1 of 2) Shingles (RZV) Vaccine (1 of 2)[facility]HealthStart: 60-28-5178Hqvprji vaccination Tetanus (Td or Tdap) BoosterMetroHealthStart: 32-30-2329Jdxewtyot vaccination Influenza Vaccine (#1)MetroHealthStart: 83-06-9304NKSSH-19 Vaccine ( season)COVID-19 Vaccine ( season)MetroHealthStart: 51-09-0528JB guided biopsyAshtabula County Medical Centertart: 11-71-5761Jjmxb culture [facility] Centertart: 10-25-2024 End: 57-54-1977BqzamnilyAshtabula County Medical Centertart: 70-69-0090Aahnkxkjpnwz [facility] Centertart: 60-72-4854YqtgusrwzAshtabula County Medical Centertart: 40-80-2826MuooallrvAshtabula County Medical Centertart: 10-23-2024 [facility]ertart: 42-81-5082Feumpyby to high scaler [facility] Centertart: 22-69-6499Ufyyluwv admissionAshtabula County Medical Centertart: 75-56-8566LfotznmseAshtabula County Medical Centertart: 02-92-1522HKT Vaccine (optional start 27-45 years)HPV Vaccine (optional start 27-45 years)[facility]roHealthStart: 08-03-2024 End: 37-48-5203Dxvwvil encounter hzsormmma99/08/2025 1:45 PM EDT Office Visit [facility] [address] [place] [address] Charlene Nick PA-C [address] [place] [address] [facility] Plastic SurgeryStart: 11-66-2373OTZNL-19 Vaccine ( season)COVID-19 Vaccine ( season)[facility]HealthStart: 65-91-5592Ettrosuud A (HAV) Vaccine (optional start 19+ years)Hepatitis A (HAV) Vaccine (optional start 19+ years) [facility]HealthStart: 15-95-0760Vcndswpgheeh vaccinationPneumococcal Vaccine(s) (1 of 2 - PCV)[facility]roHealthStart: 58-49-4985Zatgpgxpv C screeningHepatitis C Antibody MetroHealthStart: 17-67-0295UKX screeningHIV TestMetroHealthStart: 2012 Vaccination for human papillomavirusHPV Vaccine (1 - Male 3-dose series) MetroHealthStart: 00-99-0398Shlcxjhih B vaccinationHepatitis B (HBV) Vaccine (3 of 3 - 3-dose series)ZsxzgOxsqbi57 hour urine magnesium output measurement [facility] HospitalAldosterone [Mass/volume] in Serum or Plasma [facility] HospitalAntibody measurementPike Community HospitalCefuroxime free [Mass/volume] in Serum or PlasmaPike Community HospitalComprehensive metabolic 2000 panel - Serum or PlasmaPike Community HospitalCreatinine [Mass/volume] in UrinePike Community Hospital Crystals [type] in Body fluid by Light microscopyPike Community HospitalDOPamine [Mass/time] in 24 hour UrinePike Community Hospital DOPamine [Mass/volume] in UrinePike Community HospitalEPINEPHrine [Mass/volume] in UrinePike Community HospitalHepatitis A virus antibody, IgM [facility] B core antibody measurement, IgM [facility]He[facility] B virus surface Ag [Presence] in Serum or Plasma by ImmunoassayP[facility] Community Hospital Hepatitis C virus IgG Ab [Presence] in Serum or Plasma by ImmunoassayPike Community HospitalHIV 1+2 Ab+HIV1 p24 Ag [Presence] in Serum or Plasma by ImmunoassayPike Community HospitalMetanephrines [Mass/volume] in 24 hour UrinePike Community HospitalMetanephrines/Creatinine [Mass Ratio] in UrinePike Community HospitalMyeloperoxidase Ab [Units/volume] in Serum by ImmunoassayPike Community HospitalNeutrophil cytoplasmic Ab.classic [Titer] in Serum by ImmunofluorescencePike Community HospitalNorepinephrine [Mass/time] in 24 hour UrinePike Community HospitalNorepinephrine [Mass/volume] in UrineP[facility] Hospital Normetanephrine [Mass/volume] in 24 hour UrinePike Community Hospital P-ANCA measurementPike Community HospitalPatient EducationKnow your MedTrumbull Regional Medical Center Ctr Work Phone: Patient referralUniversity Hospitals [facility] Work Phone: Proteinase 3 Ab [Units/volume] in Serum by Immunoassay [facility] HospitalRenin [Enzymatic activity/volume] in Plasma [facility] HospitalRepair extensor tendon finger w/o graft each REPAIR, EXTENSOR TENDON, FINGER, PRIMARY/SECONDARY; W/O FREE GRAFT, EACH TENDON Procedures Routine Open displaced fracture of middle phalanx of left index finger with routine healing, subsequent encounter Ordered: 06/09/2024[employer] Work Phone: Comment on above:Ordered: 06/09/2024US Lower extremity vein - rightPike Community HospitalXR Knee - right 3 ViewsUniversity of Miami Hospital Immunizations Immunization DateImmunizationNotesCare LfzccwdwGooqbute93-55-5251pwqednu toxoid, reduced diphtheria toxoid, and acellular pertussis vaccine, adsorbed; Translations:[Boostrix (Tdap)]Claudia [facility]04-12-2000diphtheria, tetanus toxoids and acellular pertussis vaccine, unspecified formulationCharlene Nick PA-C Work Phone: [phone]9742BquwlEgzhzz17-08-3008rwtztsjmblt influenzae type b vaccine, PRP-OMP conjugateKathryn Sandoval PA-C Work Phone: AwjpmLoagwv37-721195TmjzhLbndlf23-01-0310skysdtu, mumps and rubella virus vaccineKatwatson Nick PA-C Work Phone: ExwgoOktklv40-438069ZsotmWinsbm40-57-3878ohjgkfserd vaccine, inactivated Charlene Nick PA-C Work Phone: KulfzYskkfs74-025895DlodmLaerrs77-76-4291nkyhzjhuqo, tetanus toxoids and acellular pertussis vaccine, unspecified formulationKatwatson Nick PA-C Work Phone: HmvmiVuvqmd61-156710PxfubBhkrhh18-76-6936boilrkhddfj influenzae type b vaccine, PRP-OMP conjugateCharlene Nick PA-C Work Phone: DpjrzTazagb36-538394NowgdWjyhgb16-90-2941rgwakfmtad, tetanus toxoids and acellular pertussis vaccine, unspecified formulationKatwatson Nick PA-C Work Phone: MqeihRojdka52-482354DahmqYsuztv75-56-5833tlqqvpmodnq influenzae type b vaccine, PRP-OMP conjugateCharlene Nick PA-C Work Phone: PixmsYhsfzv57-776192JvycjCluwyc55-47-9173dawhdwixs B vaccine, pediatric or pediatric/adolescent dosageCharlene Nick PA-C Work Phone: NptibHzvxew64-007653ShljkUqquuc52-23-1796fqkfabadmp vaccine, inactivated Charlene Nick PA-C Work Phone: JsiscScgcyu00-600036FtjtoZebanj98-17-2799jopmtqgpio, tetanus toxoids and acellular pertussis vaccine, unspecified formulationCharlene Nick PA-C Work Phone: MgrarDqngvz12-252473WtkyfZelntn37-04-9164ktddohjoxib influenzae type b vaccine, PRP-OMP conjugateCharlene Nick PA-C Work Phone: KfiqzMfluxo78-890911KrxsmLojrnx38-61-9318yjifkxwhrj vaccine, inactivated Charlene Nick PA-C Work Phone: IdoxpFoxgpg68-321427GdaqdUzmjuk05-78-8414sgtynbgfi B vaccine, pediatric or pediatric/adolescent dosageKatwatson Nick PA-C Work Phone: [facility] Payers DatePayer CategoryPayerPolicy [id number]-[id number] IndemnityMEDICAL MUTUAL - HMO/PPO/POS ..[id number] [id number] 2..6.53503[id number] 2..1.369747.3.57[id number] 2..1.491647.3.57[id number] 2.0.1.321100.3.57[id number] 2.0.1.025235.3.57[id number] 2.0.1.508533.3.57[id number] 2..1.565286.3.57[id number] 2.0.1.770763.3.579.[id number] 2.0.1.117832.3.57[id number] 2.16.840.1.331674.3.579.[id number] 2.16.840.1.179109.3.57[id number] 2.16.840.1.795167.3.579.2.[id number] 2.16.840.1.568857.3.579.2.84[id number] 2..840.1.173138.3.579.2.7[id number] 2.16.840.1.693787.3.57[id number] 2..840.1.327832.3.579.[id number] 2..840.1.330880.3.579.2.93895-50-5403Gzyupch075744358 2..840.1.936754.3.57[id number] 2..840.1.912676.3.57[id number] 2..840.1.814174.3.579.2.56780-96-3355Cxgfzea672689635 2.16.840.1.620127.3.57[id number] 2.16.840.1.072747.3.579.[id number] 2.16.840.1.337489.3.57[id number] 2.16.840.1.113266.[address] [facility] [id number] Caresource [id number] xo293985-x351-8s12-pzd0-28820z82171wNomquxwWzdytb /[id number] 260njr22-28z0-1j69-8e4q-255gx2ad22o4Mnyhzcg62801325 2.16.840.1.919428.3.579.2.325Djjuocx85251678 2.16.840.1.608054.3.579.2.531 Social History DateTypeDetailFacilityStart: 00-26-8460Zgbieua smoking statusHeavy tobacco smoker (finding)[facility] CenterStart: 06-01-2024 End: 80-37-6931Gvf Assigned At BirthMaleFCherrington Hospitaltart: 06-01-2024 End: 89-37-6154Ttzgmnh smoking status NHISSmokes tobacco dailyMetroHealthHistory of tobacco useCigarette SmokerMetroHealthStart: 21-99-1481Xjbmkqr use and exposureSmokeless tobacco non-userMetroHealthStart: 06-10-2024 End: 02-51-2939Xvuhfqxol beverage intakeCurrent drinker of alcohol (finding) [facility]HealthStart: 06-01-2024 End: 85-33-3687Atqbkzn of Social functionMetroHealthStart: 19-50-4968Iurdxsy CommentCutting down to 1-2 cigs a day ( 05/2024) SSMetroHealthStart: 06-01-2024 Alcohol Commentdaily 2-3 mixed drinks after workMetroHealthStart: 83-08-0484Djv assigned at birthNot on fileMetroHealthStart: 05-30-2024 End: 08-41-6849QsjWkfk (finding)[facility] Work Phone: Start: 35-94-5168Ovhoktr smoking status NHISSmoker (finding)[facility] Centertart: 89-94-4560Uub Assigned At MalePike Community HospitalTobabrookhaven hospital [facility] [place] smoking status NHISTobacco smoking consumption unknownMetroHealthStart: 06-01-2024 End: 69-61-9299Wkqdpzo of drug misuse behaviorMisused drugs in past (finding) MetroHealthStart: 38-56-3205DGTN Follow upSDOH Follow upBluffton [facility] Work Phone: Medical Equipment Procedure CodeEquipment CodeEquipment Original TextEquipment IdentifierDatesK Wire Christopher 2 Pnt 4in .035 Bx6 032591 - [id number]_nawKgqwg: 07-23-2024K Wire Christopher 2 Pnt 4in .035 Bx6 192552 - [id number]_ykuVnewk: 06-09-2024K Wire Christopher 2 Pnt 4in .035 Bx6 296234 - [id number]_tnvLvmjs: 07-23-2024K Wire Christopher 2 Pnt 4in .035 Bx6 329391 - [id number]_yzqKhivd: 06-09-2024K Wire Christopher 2 Pnt 4in .035 Bx6 192394 - [id number]_mjkParxo: 07-23-2024K Wire Christopher 2 Pnt 4in .035 Bx6 570088 - [id number]_oieMqtjs: 06-09-2024K Wire Christopher 2 Pnt 4in .035 Bx6 066344 - [id number]_acoVksdt: 07-23-2024K Wire Christopher 2 Pnt 4in .035 Bx6 618031 - [id number]_depPosyy: 06-09-2024K Wire Christopher 2 Pnt 4in .035 Bx6 110864 - [id number]_ygxDmiae: 07-23-2024K Wire Christopher 2 Pnt 4in .035 Bx6 830635 - [id number]_pugIeuut: 06-09-2024 Functional Status JgfoZdqembidveSfaxrpXtrmsbjr22-39-8651Givdizlhhi StatusN/[facility] CenterItsmdu08-90-9612Fkzxdwyhfm StatusN/[facility] Clinical Notes 06-22-2022 to 02-02-2025 Note Date & AddhTtysKwxibjtv44-28-9576 Evaluation note* Diagnosis Onset Date Resolution Status Admit Date Right knee pain acuteOctober 2024 1:00pmRight leg painacuteOctober 2024 1:00pmSwelling of right kneeacuteOctober 2024 1:00pmSwelling of right lower extremityacute February 02, 2025 1:00pmRight knee painacuteOctober 2024 12:08pmSwelling of right kneeacuteOctober 2024 12:08pm [facility] Work Phone: 1(372) 555-123310-08-2025 Evaluation note* Diagnosis Onset Date Resolution Status Admit Date Right knee pain acuteOctober 2024 1:00pmRight leg painacuteOctober 2024 1:00pmSwelling of right kneeacuteOctober 2024 1:00pmSwelling of right lower extremityacute February 02, 2025 1:00pmRight knee painacuteOctober 2024 12:08pmSwelling of right kneeacuteOctober 2024 12:08pmRight knee painacuteOctober 2024 9:49amSwelling of right kneeacuteOctober 2024 9:49am [facility] Work Phone: 1(152) 886-307305-12-2025 Evaluation note* Diagnosis Onset Date Resolution Status Admit Date BMI 34.0-34.9,adult acuteMay 2024 9:37amGoutacuteMay 2024 9:37amHypertensionacuteMay 2024 9:37amObeseacuteMay 2024 9:37amBMI 34.0-34.9,adultacuteJune 2024 10:13amObeseacuteJune 2024 10:13am [facility] Work Phone: 1(233) 433-263005-12-2025 Evaluation note* Diagnosis Onset Date Resolution Status Admit Date BMI 34.0-34.9,adult acuteMay 2024 9:37amGoutacuteMay 2024 9:37amHypertensionacuteMay 2024 9:37amObeseacuteMay 2024 9:37amBMI 34.0-34.9,adultacuteJune 2024 10:13amObeseacuteJune 2024 10:13amAKI (acute kidney injury) acuteJune 2024 12:33amDehydrationacuteJune 2024 12:33amGoutacuteJune 2024 12:33amHypertensionacuteJune 2024 12:33amHypokalemiaacuteJune 2024 12:33amMicroscopic hematuriaacuteJune 2024 12:33amProteinuria acuteJune 2024 12:33amTobacco dependenceacuteJune 2024 12:33am [facility] Work Phone: 1(202) 551-402203-30-2025 Telephone encounter Note* Telephone Encounter - Danay Figueroa PharmD - 07/25/2024 12:54 PM EDT Patient sent a second request for oxycodone in [place] 07/25/2024. [facility] Work Phone: 1(716) 420-756003-30-2025 Miscellaneous Notes* Telephone Encounter - Danya Figueroa PharmD - 07/25/2024 12:54 PM EDT Patient [facility] a [facility]. documented in this pchusbieeGckqhDvxfbh19-76-0580 Surgery Postoperative evaluation and management note* Brief Operative Note - Emelina Diego DO - 07/23/2024 2:13 PM EDT Brief Operative Note BV OR 1 Tu Casiano 28 year old male Surgical Contact Serial Number: [id number] Preoperative Diagnosis: Pre-op Diagnosis * Traumatic amputation of finger, initial encounter [S68.119A] * Hand laceration involving tendon, right, subsequent encounter [S61.411D, S66.921D] Postoperative Diagnosis: * Traumatic amputation of finger, initial encounter [S68.119A] * Hand laceration involving tendon, right, subsequent encounter [S61.411D, S66.921D] Procedures: Right small finger hardware removal Surgeon(s): Surgeon(s): Cely Strauss MD Staff: Scrub: Maryam Mao Slice Plug Cutter Operator Helper Nurse: Lidya Williamson RN Strategic Debriefing Officer: Emelina Diego DO; Cristopher Kaur DMD, MD Anesthesia: Consult Anesthesiologist: Salinas Saldaña MD DEVELOPMENT ADVISOR: Jessica Aguilar APRN-DEVELOPMENT ADVISOR Anesthesia Student: Carolina Tamez Specimen(s): * No [...] by Emelina Diego DO 07/23/2024 2:21 PM [id number] Surgery Surgical operation note* OP Note - Emelina Diego DO - 07/23/2024 2:13 PM EDT OPERATIVE NOTE Plastic Surgery Name: Tu Casiano CSN: [id number] Surgical Age: [age] year old Date of [...] Care Complete Surgeon(s): Primary: Cely Strauss MD Sign Painter Surgeon: Scrub: Maryam Mao Slice Plug Cutter Operator Helper Nurse: Lidya Williamson RN Strategic Debriefing Officer: Emelina Diego DO; Cristopher Kaur DMD, MD [...] Strauss MD at 07/26/2024 11:46 AM EDT [id number] Miscellaneous Notes* Brief Operative Note - Emelina Diego DO - 07/23/2024 2:13 PM EDT Brief Operative Note BV OR 1 Tu Casiano 28 year old male Surgical Contact Serial Number: [id number] Preoperative Diagnosis: Pre-op Diagnosis * Traumatic amputation of finger, initial encounter [S68.119A] * Hand laceration involving tendon, right, subsequent encounter [S61.411D, S66.921D] Postoperative Diagnosis: * Traumatic amputation of finger, initial encounter [S68.119A] * Hand laceration involving tendon, right, subsequent encounter [S61.411D, S66.921D] Procedures: Right small finger hardware removal Surgeon(s): Surgeon(s): Cely Strauss MD Staff: Scrub: Maryam Mao Slice Plug Cutter Operator Helper Nurse: Lidya Williamson RN Strategic Debriefing Officer: Emelina Diego DO; Cristopher Kaur DMD, MD Anesthesia: Consult Anesthesiologist: Salinas Saldaña MD DEVELOPMENT ADVISOR: Jessica Aguilar APRN-DEVELOPMENT ADVISOR Anesthesia Student: Carolina Tamez Specimen(s): * No [...] NOTE Plastic Surgery Name: Tu Casiano CSN: [id number] Surgical Age: [age] year old Date of [...] Care Complete Surgeon(s): Primary: Cely Strauss MD Sign Painter Surgeon: Scrub: Maryam Mao Slice Plug Cutter Operator Helper Nurse: Lidya Williamson RN Strategic Debriefing Officer: Emelina Diego DO; Cristopher Kaur DMD, MD [...] 07/26/2024 11:46 AM EDT documented in this [id number] Hospital Discharge instructions* Discharge Instructions* Tammy Maher RN - 07/23/2024 1:45 PM EDT DEPARTMENT OF PLASTIC SURGERY DISCHARGE INSTRUCTIONS Outpatient Surgery C O N F I D E N T I A L I N F O R M A T I O N Hand Surgery Plastic Surgery Department Call [phone] during regular daytime business hours (8:00 am - 5:00 pm) and after 5:00 pm call [phone] or [phone] and ask for the Plastic Surgery (service) resident with any questions or concerns. If it is a life-threatening situation, proceed to the nearest emergency department. Follow up is typically in 7-10 days and should be scheduled by calling the office at [phone] if it has not already been arranged. [...] these, please contact your doctor's office at [phone]. Any fever higher than 100.4 F, especially if associated with an ill feeling, abdominal pain, chills, or nausea should be reported to your surgeon. Emergencies: If there is a non-urgent problem, please call the office at [phone]. Most issues are easily addressed and do [...] room. Please call us as well at [phone]. * Attachments The following attachments cannot be sent through Care Everywhere. * Acute Pain Discharge Instructions, Adult (Macedonian) documented in this [id number] History and physical note* Cristopher Kaur DMD, MD - 07/23/2024 1:42 PM EDT Images from the original note were not included. Surgical History and Physical [facility] Ambulatory Surgery [address] [place] [address] Name: Tu Casiano : 1995 28 year old CSN: [id number] Attending: Cely Strauss MD Date of Admission: [...] hospital encounter of 05/30/24 (from the past 97099 hours) Complete Blood Count W/Diff Collection Time: [...] Strauss MD at 07/23/2024 1:46 PM EDT [id number] NoteSurgical History and Physical [facility] Ambulatory Surgery [address] [place] [address] Name: Tu Casiano : 1995 28 year old CSN: [id number] Attending: Cely Strauss MD Date of Admission: [...] hospital encounter of 05/30/24 (from the past 49874 hours) Complete Blood Count W/Diff Collection Time: [...] medical history an (more content not included)...[facility] [id number] History and physical note* Schieder, Cristopher, DMD, MD - 07/23/2024 1:42 PM EDT Images from the original note were not included. Surgical History and Physical [facility] Ambulatory Surgery [address] [id number] Name: Tu Casiano : 1995 28 year old CSN: [id number] Attending: Cely Strauss MD Date of Admission: [...] hospital encounter of 05/30/24 (from the past 74470 hours) Complete Blood Count W/Diff Collection Time: [...] 07/23/2024 1:46 PM EDT documented in this [id number] History of Present illness Narrative* Charlene Nick [...] PA-C 07/09/24 2:10 PM documented in this [id number] History of Present illness Narrative* Charlene Nick [...] PA-C 06/23/24 12:25 PM documented in this [id number] History of Present illness Narrative* Charlene Nick [...] fracture. Surgeon: Christoph Strauss MD Pain (0-10): 02/04 Other Complaints: Patient [...] PA-C 06/15/24 12:15 PM documented in this [id number] History of Present illness Narrative* Prisca Caballero, ERIC/Jai, CHT - 06/15/2024 10:30 AM EST OCCUPATIONAL THERAPY HAND TREATMENT Visit #: 2 Referred to Occupational Therapy for evaluation and treatment. Referring Provider: Charlene Nick PA-C DIAGNOSIS: Right SF open fracture dislocation and extensor tendon laceration and R MF distal phalanx amputation. PROCEDURES 06/09/24 (Totdivinei): 1. R MF revision amputation at the level of distal portion of the middle phalanx. 2. Fixation of the extensor tendon at 2 different places, in central slip and also zone 5. 3. Open reduction of the PIP dislocation fracture. DOI/Mechanism: 05/30/24 - table saw injury Precautions: Small finger PIP is pinned. Extensor tendon precautions. NWB Payor: [employer] - HMO/PPO/POS / Plan: [employer] PPO/CLASSIC/PLUS / Product Type: PPO Tu Casiano [...] updated medication list. 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 Identification [...] into bimanual activities to complete child care attendant school tasks. Status: INITIATED Pt will integrate right [...] to OT closer to home per request, [facility] hand out provided Interventions: PROM, AROM, [...] OT Therapeutic Procedures THERAPEUTIC EXERCISES (15 MIN) [10642]: 10 SELF-CARE/HOME MANAGEMENT TRAINING (15 MIN) [00308]: 15 Total Timed Code Treatment Minutes: 25 minutes Un-Timed Code Treatments by Procedure: 1 WHO, 1 FO Total Un-Timed Code Treatment Minutes: 35 minutes ERIC Harmon/Jai, CHChelsea documented in this [id number] Telephone encounter Note* Telephone Encounter - Rossy [...] will not be permitted. Pt verbalized understanding. [facility] Work Phone: 1(750) 699-941702-13-2025 Miscellaneous Notes* Telephone Encounter - Rossy [place] [...] last night. Please call. documented in this [id number] Telephone encounter Note* Telephone Encounter - Tri Vasquez - 06/10/2024 8:55 AM EST Pt calling to request a different pain med. States was not able to sleep due to pain last night. Please call. [id number] Surgery Surgical operation note* OP Note - Cely Strauss MD - 06/09/2024 8:45 PM EST Name: TU CASIANO I MR#: [id number] [facility]#: [id number] Date of Procedure: 06/09/2024 ATTENDING SURGEON: Christoph Strauss MD VENDING ROUTE SERVICER: Dr. Matta PREOPERATIVE DIAGNOSES: Right hand small [...] SAT/MedQ/Dict: 06/09/2024 15:21:21 TRANS: 06/09/2024 15:42:55 JOB: [id number] DictJob#: [id number] Miscellaneous Notes* OP Note - Cely Strauss MD - 06/09/2024 8:45 PM EST Name: TU CASIANO I MR#: [id number] [facility]#: [id number] Date of Procedure: 06/09/2024 ATTENDING SURGEON: Christoph Strauss MD VENDING ROUTE SERVICER: Dr. Paxton PREOPERATIVE DIAGNOSES: Right hand small finger open [...] SAT/MedQ/Dict: 06/09/2024 15:21:21 TRANS: 06/09/2024 15:42:55 JOB: [id number] DictJob#: [id number] * Brief Operative Note - Cely Strauss MD - 06/09/2024 2:30 PM EST Brief Op Note Surgical Name: Tu Casiano CSN: [id number] Age: [age] year old Date of : 1995 Preoperative diagnosis(es): Pre-op Diagnosis * Hand laceration involving tendon, right, subsequent encounter [S73.204H, R86.505M] Postoperative diagnosis(es): Same Procedure(s): REPAIR, TENDON, EXTENSOR REDUCTION, OPEN, HAND Surgeon: Cely Strauss MD Sign Painter surgeon: Dr. Matta Anesthesia: General Specimen(s): * [...] were discussed with the patient and/or legal goodwill representative. The risks, benefits and alternatives were reviewed. Questions regarding blood transfusions were answered. The patient /or the patient s legal goodwill representative agree with the plan for transfusion of blood and/or blood components. documented in this [id number] History of Present illness Narrative* Carolyn Ghosh [...] instructions and home prescriptions. documented in this [id number] NotePeripheral Block Patient location during procedure: holding [...] Slow fractionated injection: yes No block complicationsThe [facility] [id number] NoteAcute Pain Note and Procedure Patient: Tu [...] Laila Golden DO Anesthesiology, PGY-3 06/09/2024, 4:23 [facility] Surgery Postoperative evaluation and management note* Brief Operative Note - Cely Strauss MD - 06/09/2024 2:30 PM EST Brief Op Note Surgical Name: Tu Casiano CSN: [id number] Age: [age] year old Date of : 1995 Preoperative diagnosis(es): Pre-op Diagnosis * Hand laceration involving tendon, right, subsequent encounter [S61.411D, S66.922B] Postoperative diagnosis(es): Same Procedure(s): REPAIR, TENDON, EXTENSOR REDUCTION, OPEN, HAND Surgeon: Cely Strauss MD Sign Painter surgeon: Dr. Matta Anesthesia: General Specimen(s): * [...] procedure. Cely Strauss MD 06/09/2024 3:13 PM [id number] Progress note* Blood Attestation - Js Gonzalez MD - 06/09/2024 12:58 PM EST Blood Attestation: ATTESTATION OF INFORMED CONSENT FOR BLOOD: The transfusion of blood and/or blood components were discussed with the patient and/or legal goodwill representative. The risks, benefits and alternatives were reviewed. Questions regarding blood transfusions were answered. The patient /or the patient s legal goodwill representative agree with the plan for transfusion of blood and/or blood components. [facility] Work Phone: 1(688) 307-319002-12-2025 History and physical note* Stevie Glasgow MD - 06/09/2024 12:54 PM EST Images from the original note were not included. Surgical History and Physical [facility] Main OR [address] [place] [address] Name: Tu Casiano : 1995 28 year old CSN: [id number] Attending: Cely Strauss MD Date of Admission: [...] hospital encounter of 05/30/24 (from the past 34085 hours) CBC WITH DIFFERENTIAL Collection Time: 05/30/24 [...] MD. Stevie Glasgow MD 06/09/24 12:54 PM [facility] Work Phone: 1(642) 155-748902-12-2025 NoteSurgical History and Physical [facility] [place] [address] Name: Tu Casiano : 1995 28 year old CSN: [id number] Attending: Cely Strauss MD Date of Admission: [...] hospital encounter of 05/30/24 (from the past 84755 hours) CBC WITH DIFFERENTIAL Collection Time: 05/30/24 [...] Strauss MD. Stevie Glasgow MD 06/09/24 12:54 [facility]02-12-2025 History and physical note* Stevie Glasgow MD - 06/09/2024 12:54 PM EST Images from the original note were not included. Surgical History and Physical [facility] Main OR [facility] [address] Name: Tu Casiano : 1995 28 year old CSN: [id number] Attending: Cely Strauss MD Date of Admission: [...] hospital encounter of 05/30/24 (from the past 16740 hours) CBC WITH DIFFERENTIAL Collection Time: 05/30/24 [...] MD 06/09/24 12:54 PM documented in this [id number] Hospital Discharge instructions* Discharge Instructions* Carolyn Ghosh [...] (Arrive by 9:50 AM) Charlene Nick PA-C [facility] Plastic Surgery [facility] 06/15/2024 10:30 AM (Arrive by 10:20 AM) [facility] Occupational Therapy Arrive at: [facility] During business hours, if you need to reach your provider, please call Plastic Surgery Office [phone]. After hours, if you have an urgent question or issue, you can also call this number and request to be connected to one of the residents on-call. PERIOPERATIVE DISCHARGE/HOME-GOING INSTRUCTIONS ANESTHESIA - GENERAL (ADULT) If a problem arises, you may contact your physician by calling [phone] and asking for the resident compressor stations superintendent for Plastic Surgery service. Special Care Needs: [...] very uncomfortable and can t urinate, call [phone] or come tothe emergency room. A risk [...] less likely. For more informati on visit: [email or web address] g-ba-blkxqvk/ Some medications or combinations of medications can [...] and treated if needed documented in this [id number] Evaluation + Plan note* Assessment & Plan [...] - Follow up one week post operatively. [id number] Miscellaneous Notes* Assessment & Plan Note - [...] one week post operatively. documented in this [id number] NoteOCCUPATIONAL THERAPY HAND CLINIC EVALUATION Visit #: [...] updated medication list. 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 Status: INITIATED Pt will integrate right [...] to OT closer to home per request, [facility] hand out provided Interventions: P (more content not included)...[facility] [id number] History of Present illness Narrative* Federico Galeana, [...] Payor: [employer] - HMO/PPO/POS / Plan: [employer] PPO/CLASSIC/PLUS / Product Type: MARIA ISABEL Johnson [...] updated medication list. 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 Status: INITIATED Pt will integrate right [...] to OT closer to home per request, [facility] hand out provided Interventions: PROM, AROM, [...] Minutes: Un-Timed Code Treatments by Procedure: OT JOSE ALEJANDROAL LOW COMPLEX 30 MIN: 1 1 WHFO Total Un-Timed Code Treatment Minutes: 24 minutes SHARRI Barroso CHT documented in this [id number] History of Present illness Narrative* Charlene Nick [...] PA-C 06/02/24 12:06 PM documented in this [id number] Telephone encounter Note* Telephone Encounter - Rossy [...] POC. Preferred pharmacy for oxycodone refill is [facility]. Current rx ends 2/5-pt aware we might not be able to fill until 2/6 based on frequency of rx. [facility] Work Phone: [phone] Miscellaneous Notes* Telephone Encounter - Rossy [place] [...] POC. Preferred pharmacy for oxycodone refill is [facility] in [facility]. Current rx ends 2/5-pt aware we might not be able to fill until 2/6 based on frequency of rx. * Telephone Encounter - Sharron Santacruz - 06/01/2024 8:56 AM EST Please call patient in regards to pain medication refill. Pain meds now not working so good. Please call patient TONY they run out of meds by tomorrow. [phone] documented in this [id number] Instructions* Discharge Instructions* Elma Parra RN - 06/01/2024 8:58 AM EST June 01, 2024 Mr. Johnson, You are scheduled for your procedure/surgery on 06/09/[address] Strauss at the [facility] location. You will be contacted on 06/08/2024 between 1-3 PM and provided with your arrival time. [address] [place] [address] [facility]LY [facility] PARKING INSTRUCTIONS Please plan extra time for parking and shuttle service. We recommend arriving at least 15 minutes prior to the time your care team advises you need to be here. Parking is available in the [employer] [facility] accessible from [address]. 18/11 shuttle service from the garage to the [facility] is available. Go to the ground floor of the parking garage to reach the shuttle pick-up station located just outside the elevator and stairs. Shuttle service will drop you off at the [facility] entrance. Slice Plug Cutter Operator Helper service is available at the [facility] entrance if you prefer survey worker over parking. [facility] Slice Plug Cutter Operator Helper Services Hours: Friday-Friday 5:30 am to 8:00 pm Enter the [facility] entrance and go to the Admitting/Registration [...] BOLD TEXT ? Expect a call from [facility] one day prior to surgery for surgery [...] stay with you after surgery. Please call [facility] if you need transportation assistance or have concerns about going home [phone]. ? PLEASE BE ON TIME. A late arrival may result in the cancellation/ delay of your surgery. Thank you for choosing [facility]; it is our pleasure to care for you If you become ill prior to procedure or surgery, or a family emergency should arise, please call the provider or surgeon's office directly. documented in this [id number] Telephone encounter Note* Telephone Encounter - Sharron Santacruz - 06/01/2024 8:56 AM EST Please call patient in regards to pain medication refill. Pain meds now not working so good. Please call patient TONY they run out of meds by tomorrow. [phone] [id number] Evaluation note* PAT Call History - Elma Parra RN - 06/01/2024 8:36 AM EST Images from the original note were not included. Telephone History Tu Alex, [id number] 06/01/2022 28 year old 255 lbs 6' [...] surgery or procedure with anesthesia scheduled at [facility] ED Visit (05/30/2024) Partial Note- Hand [...] 5th digit. Patient was transferred here from [facility] for surgical consultation. A/P 28-year-old male with a past medical history listed above who presents to the emergency department as a transfer from [facility] for hand surgery consult. On initial presentation [...] and pain control prior to evaluation at [facility]. Hand surgery was consulted, evaluated [...] Strauss's office for surgery (schedulers messaged) - sinan for discharge - Dispo: per ED STOP-DIVINA Row Name 06/01/24 0836 History of sleep [...] (+) obesity (-) diabetes mellitus, hypothyroidism, hyperthyroidism curber - negative ROS Neuro/Psych (+) no cerebral palsy, no attention deficit hyperactivity disorder, no intellectual disability (-) CVA, depression, bipolar disorder, anxiety/panic attacks, schizophrenia, ADHD, cerebral palsy, dementia, seizures Comment: Daily drinker - denies any w/d sx' Cardiovascular (+) 4-10 METs, hypertension (Compliant with meds) well controlled (-) exercise intolerance, past IA, CAD, CABG/stent, AAA, arrhythmia, angina, CHF, valvular [...] BOLD TEXT ? Expect a call from [facility] one day prior to surgery for surgery [...] stay with you after surgery. Please call [employer] if you need transportation assistance or have concerns about going home [phone]. ? PLEASE BE ON TIME. A late arrival may result in the cancellation/ delay of your surgery. Thank you for choosing [facility]; it is our pleasure to care for you Elma Parra RN, RN Time Spent Performing this Telephone History: 30 min [id number] Miscellaneous Notes* PAT Call History - Elma Parra RN - 06/01/2024 8:36 AM EST Images from the original note were not included. Telephone History Tu Johnson, [id number] 06/01/2022 28 year old 255 lbs 6' [...] surgery or procedure with anesthesia scheduled at [facility] ED Visit (05/30/2024) Partial Note- Hand [...] 5th digit. Patient was transferred here from [facility] for surgical consultation. A/P 28-year-old male with a past medical history listed above who presents to the emergency department as a transfer from [facility] for hand surgery consult. On initial presentation [...] and pain control prior to evaluation at [facility]. Hand surgery was consulted, evaluated [...] (+) obesity (-) diabetes mellitus, hypothyroidism, hyperthyroidism curber - negative ROS Neuro/Psych (+) no cerebral palsy, no attention deficit hyperactivity disorder, no intellectual disability (-) CVA, depression, bipolar disorder, anxiety/panic attacks, schizophrenia, ADHD, cerebral palsy, dementia, seizures Comment: Daily drinker - denies any w/d sx' Cardiovascular (+) 4-10 METs, hypertension (Compliant with meds) well controlled (-) exercise intolerance, past IA, CAD, CABG/stent, AAA, arrhythmia, angina, CHF, valvular [...] BOLD TEXT ? Expect a call from [facility] one day prior to surgery for surgery [...] stay with you after surgery. Please call [facility] [employer] if you need transportation assistance or have concerns about going home [phone]. ? PLEASE BE ON TIME. A late arrival may result in the cancellation/ delay of your surgery. Thank you for choosing [facility]; it is our pleasure to care for you Elma Parra RN, RN Time Spent Performing this Telephone History: 30 min documented in this [id number] Note* Addendum Note - Charlene Nick PA-C - 05/30/2024 12:19 PM ESTAddended by: CHARLENE NICK on: 05/30/2024 12:19 PM Modules accepted: Orders [id number] Miscellaneous Notes* Addendum Note - Charlene Nick PA- C - 05/30/2024 12:19 PM ESTAddended by: CHARLENE NICK on: 05/30/2024 12:19 PM Modules accepted: Orders documented in this [id number] Hospital Discharge instructions* Discharge Instructions* Kenji Flores [...] Care Everywhere. * Wound Care Discharge Instructions (Macedonian) documented in this [id number] Consult note* Stevie Paiz MD - 05/30/2024 [...] where decision was made to transfer to [facility]. Thepatient reports pain 10/10pm right [...] Paiz MD Plastic Surgery - PGY5 Pager: [phone] Cosigned by Cely Strauss MD at 05/31/2024 8:30 AM EST [facility] Work Phone: 1(829) 191-560302-02-2025 Consult note* Stevie Paiz MD - 05/30/2024 [...] where decision was made to transfer to [facility]. Thepatient reports pain 10/10pm right [...] Paiz MD Plastic Surgery - PGY5 Pager: [phone] Cosigned by Cely Strauss MD at 05/31/2024 8:30 AM EST documented in this [id number] Physician Emergency department Note* Leonardo Roberts MD - 05/30/2024 1:39 AM EST Images from the original note were not included. EMERGENCY DEPARTMENT - VISIT NOTE HISTORY OF PRESENT ILLNESS Chief Complaint Patient presents with Hand/finger symptoms Hand injury from a table saw, sent from [employer] Assistant: not needed - patient preferred language is Macedonian. The history is provided by the Patient. [...] 5th digit. Patient was transferred here from [facility] for surgical consultation. On chart review, patient [...] the emergency department as a transfer from [facility] for hand surgery consult. On initial presentation [...] and pain control prior to evaluation at [facility]. Hand surgery was consulted, evaluated [...] Attending Physician Department of Emergency Medicine Pager [phone] [facility] Work Phone: 1(636) 768-756002-02-2025 Emergency department Note* Leonardo Roberts MD - 05/30/2024 1:39 AM EST Images from the original note were not included. EMERGENCY DEPARTMENT - VISIT NOTE HISTORY OF PRESENT ILLNESS Chief Complaint Patient presents with Hand/finger symptoms Hand injury from a table saw, sent from [facility] [employer] Assistant: not needed - patient preferred language is Macedonian. The history is provided by the Patient. [...] 5th digit. Patient was transferred here from [facility] for surgical consultation. On chart review, patient [...] the emergency department as a transfer from [facility] for hand surgery consult. On initial presentation [...] and pain control prior to evaluation at [facility]. Hand surgery was consulted, evaluated [...] Attending Physician Department of Emergency Medicine Pager [phone] documented in this [id number] Evaluation + Plan note Extracted from:Title:ED NoteAuthor:Claudia Sierra DO ADate:05/29/24 Open displaced fracture of m iddle [...] Transfer Patient XR Hand 3+ Views Right [facility] 12-10-2023 Evaluation note* Encounter Date Diagnosis [...] no improvement in 2 to 3 days. [employer] Other 02-26-2023 Hospital Discharge instructions Patient Education 06/22/2022 23:52:48 Laceration Care, Adult, Xrdz-im-Ksvk Laceration Care, Adult A laceration is a [...] prevent scarring. Supplies needed: Soap. Water. Hand garden tractor mechanic. Bandage (dressing). Antibiotic ointment. Clean towel. How to take care of your cut Wash your hands with soap and water before touching your wound or changing your bandage. If soap and water are not available, use hand garden tractor mechanic. If your doctor used stitches or nidhi: [...] falls off the skin. General instructions Take sryj-soh-tcqdgtb and prescription medicines only as told by [...] Others need to be closed with stitches, ndihi, skin adhesive strips,or skin glue. Follow your [...] 09/30/2008 Document Revised: 06/12/2018 Document Reviewed: 05/04/2018 [employer] Patient Education 2020 [employer]. Follow Up Care 06/22/2022 21:21:07 With:Skip ARANDA, PRICILA Asencio Address: [address] [place] [address]- When:2 weeks Comments:for suture removal [facility]02-25-2023 Evaluation + Plan noteExtracted from: Title:ED NoteAuthor:Tori CAT, Charlene SpringDate:2/25/23 1. Laceration of left index finger w/o foreign body w/o damage to nail (S61.211A: Laceration without foreign body of left index finger without damage to nail, initial encounter) Ordered: cephalexin, 500 mg = 1 cap(s), Oral, TID, X 5 day(s), # 15 cap(s), Refills(s) 0, Pharmacy: [facility]/pharmacy #[id number], 182.9, cm, 06/22/22 21:29:00 EST, Height/Length Dosing, 103.4, kg, 06/22/22 21:29:00 EST, Weight Dosing 2. Injury due to knife (W26.0XXA: Contact with knife, initial encounter) Ordered: cephalexin, 500 mg = 1 cap(s), Oral, TID, X 5 day(s), # 15 cap(s), Refills(s) 0, Pharmacy: [facility]/pharmacy #[id number], 182.9, cm, 06/22/22 21:29:00 EST, Height/Length Dosing, 103.4, kg, 06/22/22 21:29:00 EST, Weight Dosing Orders: bacitracin topical, 1 liza, Ointment, Topical, Once, Stop date 06/22/22 23:51:00 EST, STAT, Start date 06/22/22 23:51:00 EST Future Appointments Appointment Date:06/24/2022 03:40:00 PM Scheduled Provider:NAHOMI CORRALES CNP Location[facility] Hand laceration involving tendon, [...] 9:37amHx of goutacuteMay 2024 9:37amObeseacuteMay 2024 9:37am [facility] Work Phone: Evaluation note* Diagnosis Traumatic [...] Hand laceration involving tendon, right, subsequent encounter [B81.489D, S67.195P]- [facility] [...] Hand laceration involving tendon, right, subsequent encounter [K22.208D, Q63.567L] Hand laceration involving tendon, right, subsequent encounter [...] 1:00pmRight leg painacuteOctober 2024 1:00pmSwelling of right kneeacuteOct2024 1:00pmSwelling of right lower extremityacute October 2024 1:00pm [facility] Work Phone: History general Narrative - Reported* Type Description Date Medical History high blood pressure [employer] Other Hospital course Narrative No data available for this section [facility] Discharge instructions No data available for this section [facility] [place] Progress note No data available for this section [facility]Reason for referral (narrative)No reason for referral information availableParkview Health [facility] Work Phone: Reason for visit Narrative* Auth/Cert (Routine) SpecialtyDiagnoses / ProceduresReferred By ContactReferred To ContactGeneral Surgery Diagnoses Hand laceration involving tendon, right, subsequent encounter Hand laceration involving tendon, right, subsequent encounter [P20.848D, F24.584N] Procedures REPAIR, EXTENSOR TENDON, FINGER, PRIMARY/SECONDARY; W/O FREE GRAFT, EACH TENDON REPAIR, EXTENSOR TENDON, FINGER, PRIMARY/SECONDARY; W/FREE GRAFT, EACH TENDON OPEN TRT, PHALANGEAL SHAFT FRCT, PROXIMAL/MIDDLE PHALANX, FINGER/THUMB, W/WO FIXATION, EA REPAIR, TENDON, EXTENSOR REDUCTION, OPEN, HAND [place] [address] Phone: tel: fax: [employer] [place] [address] Phone: tel: Referral IDStatusReasonStart DateExpiration DateVisits RequestedVisits [id number] [facility] for visit Narrative* Diagnostic X-Ray (Urgent) - Closed SpecialtyDiagnoses / ProceduresReferred By ContactReferred To ContactRadiology Diagnoses Traumatic amputation of finger, initial encounter Hand laceration involving tendon, right, subsequent encounter Procedures XR FINGERS RIGHT 3 VIEWS Charlene Nick PA-C [address] [place] [address] Phone: tel: fax: [facility] [address] [place] [address] Phone: tel: Referral IDStatusRejoeStcorpus christi DateExpiration DateVisits RequestedVisits [id number]/12/20252/ [facility] for visit Narrative* Auth/Cert (Routine)SpecialtyDiagnoses / ProceduresReferred By ContactReferred To ContactAmbulatory Surgery Diagnoses Traumatic amputation of finger, initial encounter Hand laceration involving tendon, right, subsequent encounter Traumatic amputation of finger, initial encounter [S68.119A] Hand laceration involving tendon, right, subsequent encounter [S61.411D, S66.921D] Procedures REMOVAL, IMPLANT; DEEP REMOVAL, HARDWARE, HAND Cely Strauss MD [address] [place] [address] Phone: tel: fax: [facility] [address] [place] [phone] Phone: tel: Referral IDStatusasonHawkinsville DateExpiration DateVisits RequestedVisits [id number] [facility] Summary Purpose Family History Relationship Condition Age at Onset Recorded Date/T steffi father Hypertension Unknown Advance Directives Advance Directive Response Recorded Date/ Time Advance Directives No August 28, 2020 4:01pm Advance Directive Response Recorded Date/ Time Advance Directives No February 21, 2025 10:26am Chief Complaint and Reason for Visit Chief [...] Swelling of right knee February 17 9:49am Chief Complaint Admit Date Right Leg Inflammation February 02, 2025 1:00pm CONSULT ALLISON LEO February 03, 2025 12:08pm m23.91 m25.461 February 15, 2025 8 :59am MRI RESULTS February 17, 2025 9 :49am Pre-Surgical Clearance (Dr. Fonseca) El schwartz 2024 1:00pm Additional Source Comments (unrecognized sect ion and content) No Status Records FoundNo Status Records FoundNo Status Records FoundNo Status Records Found INFORMATION SOURCE (unrecogn ized section and content) DATE CREATED AUTHOR 10/21/2017 [facility] DATE CREATED AUTHOR AUTHOR'S ORGANIZ ATION 09/08/2024 [facility] DATE CREATED AUTHOR AUTHOR'S ORGANIZ ATION 02/23/2025 [facility] DATE CREATED AUTHOR AUTHOR'S ORGANIZ ATION 02/25/2025 [facility] Patient Care team informatio n (unrecognized section and content) Team MemberRelationshipSpecialtyStart DateEnd Date Federico Galeana, OTR/L, CHT [address] [place] [address] Occupational TherapistOccupational Therapy06/26/24 Prisca Caballero, OTR/L, CHT [address] [place] [address] Occupational TherapistOccupational Therapy06/26/24 Team Status: Active Member Role Status Dates Allison Leo APRN [employer]-C Primary Care Provider Active Team Status: Inactive Member Role Status Dates Allison Leo APRN [employer]C Primary Care Provider, Attending Provider Active Start: September 06, 2024 End: September 06, 2024 Team Status: Inactive Member Role Status Dates Allsion Leo APRN [employer]-C Primary Care Provider, Attending Provider Active Start: October 05, 2024 End: October 05, 2024 Team Status: Inactive Member Role Status Dates Allison Leo APRN [employer] Primary Care Provider Active Start: September 06, 2024 End: September 06, 2024Allison Leo APRN [employer]-CAttending ProviderActiveStart: September 06, 2024 End: September 06, 2024 Team Status: Inactive Member Role Status Dates Allison Leo APRN [employer] Primary Care Provider Active Start: October 05, 2024 End: October 05, 2024Allison Leo APRN [employer]-CAttending ProviderActive Start: October 05, 2024 End: October 05, 2024 Team Status: Active Member Role Status Dates Allison Leo APRN [employer] Primary Care Provider Active Start: October 22, 2024 Allison Leo APRN [employer]-CAttending ProviderActiveStart: October 22, 2024 Team Status: Active Member Role Status Dates Aries Castro DO Primary Care Provider Active Start: October 23, 2024 Aicha Cee ProviderActiveStart: October 23, 2024 Poli Florentino MDOther ProviderActiveStart: October 23, 2024 Tico De La Cruz MDAttending ProviderActiveStart: October 23, 2024 Tico De La Cruz MDOther ProviderActiveStart: October 23, 2024 Team MemberRelationshipSpecialtyStart DateEnd Date Bilinonasir, Federico, OTR/L, CHT [address] [place] [address] Occupational TherapistOccupational Therapy06/26/24 Federico, Prisca, OTR/L, CHT [address] [place] [address] [place] [address] Occupational TherapistOccupational Therapy06/26/24Team MemberRelationshipSpecialty Start DateEnd Date Federico Galeana, OTR/L, CHT [address] [place] [address] Occupational TherapistOccupational Therapy06/26/24 Federico, Prisca, OTR/L, CHT [address] [place] [address] [place] [address] Occupational TherapistOccupational Therapy06/26/24Team MemberRelationshipSpecialty Start DateEnd Date Federico Galeana, OTR/L, CHT [address] [place] [address] Occupational TherapistOccupational Therapy06/26/24 Federico, Prisca, OTR/L, CHT [address] [place] [address] [place] [address] Occupational TherapistOccupational Therapy06/26/24Team MemberRelationshipSpecialty Start DateEnd Date Federico Galeana, OTR/L, CHT [address] [place] [address] Occupational TherapistOccupational Therapy06/26/24 Federico, Prisca, OTR/L, CHT [address] [place] [address] [place] [address] Occupational TherapistOccupational Therapy06/26/24Team MemberRelationshipSpecialty Start DateEnd Date Federico Galeana, OTR/L, CHT [address] [place] [address] Occupational TherapistOccupational Therapy06/26/24 Julien Caballeroe, OTR/L, CHT [address] [place] [address] Occupational TherapistOccupational Therapy06/26/24Te MemberRelationshipSpecialty Start DateEnd Date BilFederico rose, OTR/L, CHT [address] [place] [address] Occupational TherapistOccupational Therapy06/26/24 Prisca Caballero, OTR/L, CHT [address] [place] [address] Occupational TherapistOccupational Therapy06/26/24 Team Status: Inactive Member Role Status Dates Allison Leo APRN [employer]-C Primary Care Provider Active Start: February 02, 2025 End: February 02, 2025Allison Leo APRN [employer] CLE[employer]-CAttending ProviderActive Start: February 02, 2025 End: February 02, 2025 Team Status: Inactive Member Role Status Dates Allison Leo APRN [employer]-C Primary Care Provider Active Start: February 03, 2025 End: February 03, 2025Belén Flores ProviderActiveStart: February 03, 2025 End: February 03, 2025 Team Status: Active Member Role/Relationship Status Dates Allison Leo APRN [employer]-C Primary Care Provider Active Team Status: Inactive Member Role/Relationship Status Dates Allison Leo APRN [employer]-C Primary Care Provider Active Start: February 02, 2025 End: February 02, 2025Allison Leo APRN [employer]-CAttending ProviderActive Start: February 02, 2025 End: February 02, 2025 Team Status: Inactive Member Role/Relationship Status Dates Allison Leo APRN [employer] Primary Care Provider Active Start: February 03, 2025 End: February 03, 2025Luis Fonseca , DOAttending ProviderActiveStart: February 03, 2025 End: February 03, 2025 Team Status: Inactive Member Role/Relationship Status Dates Allison Leo APRN [employer] Primary Care Provider Active Start: January End: February 15, 2025Luis Fonseca DOAttending ProviderActiveStart: February 15, 2025 End: February 15, 2025 Team Status: Inactive Member Role/Relationship Status Dates Allison Leo APRN [employer] Primary Care Provider Active Start: January End: February 17, 2025Luis Fonseca DOAttending ProviderActiveStart: February 17, 2025 End: February 17, 2025 Team Status: Active Member Role/Relationship Status Dates Allison Leo APRN [employer]-C Primary Care Provider Active Start: January Outside ProviderAttending ProviderActiveStart: February 24, 2025 Team Status: Inactive Member Role/Relationship Status Dates Allison Leo APRN [employer]-C Primary Care Provider Active Start: February End: March 01, 2025Allison Leo APRN [employer] CLE[employer]-CAttending ProviderActive Start: March 01, 2025 End: March 01, 2025 REASON FOR VISIT (unrecogniz ed section and content) ReasonOnset HjvuEzndageeWuqhwg01/06/2025ReasonCommentsHand/finger symptomsHand injury from a table saw, [facility]CommentsOT EvaluationClinic 1 SpecialtyDiagnoses / ProceduresReferred By ContactReferred To ContactGeneral Surgery Diagnoses Hand laceration involving tendon, right, subsequent encounter Hand laceration involving tendon, right, subsequent encounter [B82.188J, K42.037A] Procedures REPAIR, EXTENSOR TENDON, FINGER, PRIMARY/SECONDARY; W/O FREE GRAFT, EACH TENDON REPAIR, EXTENSOR TENDON, FINGER, PRIMARY/SECONDARY; W/FREE GRAFT, EACH TENDON OPEN TRT, PHALANGEAL SHAFT FRCT, PROXIMAL/MIDDLE PHALANX, FINGER/THUMB, W/WO FIXATION, EA REPAIR, TENDON, EXTENSOR REDUCTION, OPEN, HAND Cely Strauss MD [address] [place] [address] Phone: tel: fax: [facility] [address] [place] [phone] Phone: tel: Referral IDStatusReasonStart DateExpiration DateVisits RequestedVisits [id number]/follow-upCut with ihsan saw 3 days ago. 5th dig et barely on and tip of middle finger gone. Right handReasonOnset DshiDvcwyjzyJdbpkd19/14/2025ReasonOnset AvmpDtfutcguJldopc92/27/2025Reason CommentsOT TreatmentSplint/orthotic IssueSpecialtyDiagnoses / ProceduresReferred By ContactReferred [...] SBSQ ENCTR 15 MIN Charlene Nick PA-C [address] [place] [address] Phone: tel: fax: [facility] Occupational Therapy [address] [place] [address] Phone: tel: Referral IDStatusReasonStart DateExpiration DateVisits RequestedVisits [id number] Consultation-[facility] /[id number] or partial examReasonOnset Date RezdukxpJkheni08/28/2025 Goals (unrecognized section and content) Goals may be documented in a n alternate section Scheduled Active and Recently Administ ered Medications (unrecognized section and content) Medication Order//05/2024 ceFAZolin Sodium (ANCEF) 2,000 mg in sterile water for injection 10 mL IV push 2,000 mg, Intravenous, EVERY 6 HOURS ANTIBIOTIC, First dose on Fri05/30/24 at 0400, Until Discontinued * 0435 (IV [...] 0245 * 0258 (Given - Provider: Sanaz Gonzalez RN) ketorolac (TORADOL) 15 MG/ML injection (COMPLETED) 15 mg, Intravenous Push, ONCE, 1 dose, On Fri05/30/24 at 0527 * 0505 (Given - Provider: Sanaz Gonzalez RN) lidocaine-EPINEPHrine (XYLOCAINE) 1 %-1:275207 injection SOLN (COMPLETED) 20 mL, Injection, ONCE, 1 dose, On Fri05/30/24 at 0239 * 0239 (Given by Clinician - Provider: Sanaz Gonzalez RN) oxyCODONE immediate release tablet (COMPLETED) 5 mg, Oral, STAT, 1 dose, On Fri05/30/24 at 0527 * 0505 (Given - Provider: [...] 1529 (IV Stop - Provider: Mary Chan APRN-[facility]) Medication Order acetaminophen (TYLENOL) tablet 1,000 mg, Oral, PACU ONCE PRN, Starting on Fri06/09/24 at 1606, Until Fri06/09/24 at 1923, Severe Pain (pain score 7,8,9,10), PACU Now * 1609 (Given - Provider: Carolyn Ghosh RN) fentaNYL (SUBLIMAZE) 50 MCG/ML injection 12.5 mcg, Intravenous Push, EVERY 5 MIN PRN, 5 doses, Starting on Fri06/09/24 at 1259, Until Fri06/09/24 at 1923, Moderate Pain (pain score 4,5,6), PACU Now HYDROmorphone (DILAUDID) 1 mg/mL injection 0.5 mg, Intravenous Push, PACU EVERY 15 MIN PRN X 4 DOSES, 4 doses, Starting on Fri06/09/24 at 1259, Until Fri06/09/24 at 1923, Severe Pain (pain score 7,8,9,10), PACU Now naloxone (NARCAN) 0.4 MG/ML injection 0.4 mg, Intravenous Push, PRN, Starting on Fri06/09/24 at 1259, Until Fri06/09/24 at 1923, Respiratory Rate Less Than 8 for adults and less than 12 for Peds or for suspected overdose, PACU Now oxyCODONE immediate release tablet 5 mg, Oral, PRN, 1 dose, Starting on Fri06/09/24 at 1259, Until Fri06/09/24 at 1923, Moderate Pain (pain score 4,5,6), PACU Now prochlorperazine (COMPAZINE) tablet 5 mg, Oral, EVERY 6 HOURS PRN, Starting on Fri06/09/24 at 1259, Until Fri06/09/24 at 1923, Nausea, PACU Now sodium chloride 0.9 % injection 3 mL, Intravenous Push, PRN, Starting on Fri06/09/24 at 1259, Until Fri06/09/24 at 192, For medication administration and blood draw, PACU Now traMADol (ULTRAM) tablet 50 mg, Oral, PACU ONCE PRN, Starting on Fri06/09/24 at 1605, Until Fri06/09/24 at 1924, Severe Pain(pain score 7,8,9,10), PACU Now * 1609 (Given - Provider: Carolyn Ghosh, RADHA) Medication Order// ceFAZolin Sodium (ANCEF) 2,000 mg in sterile water for injection 10 mL IV push 2,000 mg, Intravenous, ONCE, 1 dose, On Fri07/23/24 at 1300 * 1300 (Due) Medication Order/ lactated ringers iv infusion Intravenous, at 75 mL/hr, CONTINUOUS, Starting on Fri07/23/24 at 1300, Until Fri07/23/24 at 1723 * 1300 (Due) Medication Order/ acetaminophen (TYLENOL) tablet 650 mg, Oral, PACU [...] BE BASED ON THE PRIMARY CLINICAL RECORDS. [employer] provides no warranty or guarantee of the accuracy or completeness of information in this document.
--- NOTE | 2025-03-03 12:16 | P.ON_ITS ---
Surgery Operative Note Operative Note Procedure Date: 03/03/25 Pre-op Diagnosis: Recurrent right knee effusion, right knee pain Post-op Diagnosis: other (Right knee recurrent effusions, right knee chondrocalcinosis, right knee synovitis) Procedures performed: 1. Right knee diagnostic arthroscopy 2. Right knee arthroscopic synovial biopsy Anesthesia: LUZA Primary Surgeon: Luis Fonseca Estimated blood loss (mL): 5 Findings: Right knee synovitis, right knee chondrocalcinosis, loose bodies right knee Specimens: Synovial biopsy Indications for Procedures: Jeff is a 29-year-old male who was seen outpatient for acute right knee pain. Denied any significant trauma however pain was significant to affect his normal daily activities and his occupation. Aspiration was attempted and a large amount of cloudy fluid was taken off his knee. This was not consistent with i nfection and was negative for gout. Patient's pain persisted as well as his effusion in his knee. MRI was obtained which showed no significant biomechanical pathology. Hyper synovium and effusion was noted. We did discuss treatment options. We discussed continued conservative management versus surgical intervention. Risks, benefits, complications, procedure detail, convalescence, reasonable expectations were discussed in length. All questions were answered. We discussed proceeding with right knee diagnostic arthroscopy and synovial biopsy patient wishes to pursue surgical intervention, and consent was obtained. Patient was scheduled for surgery. Detailed description of Procedure: The procedure began by making a standard lateral portal and the knee. The arthroscope was placed in the suprapatellar pouch. Diagnostic arthroscopy and the following findings below: Patella cartilage: Grade 1 Trochlea: Grade 1 ACL: Intact however mucoid degeneration and calcification within tendon PCL: Intact Lateral femoral condyle: Grade 1 Lateral tibial plateau: Grade 1 Lateral meniscus: Intact with no tear Medial femoral condyle: Grade 1 Medial tibial plateau: Grade 1 Medial meniscus: Central tearing in the mid body Plica band: Not present Multiple soft tissue loose bodies around the knee Cloudy looking synovial fluid Moderate hyperemic synovium Dispersed calcification deposits on the medial and lateral femoral condyles Given the above pathology, I performed a partial medial meniscectomy. All loose bodies were removed. 2 synovial biopsies were obtained and sent to lab for evaluation. Significant amount of scar tissue was seen in the suprapatellar pouch and this was removed. A major debridement was performed including synoviu m, fat pad, capsule. Final arthroscopic images were taken. Arthroscopic water was suctioned from the knee. Incisions were closed using 3-0 nylon portal stitches. The knee was dressed with Steri-Strips, Xeroform, 4 x 4's, ABD, Venancio wrap. Patient was then awoken from anesthesia and transported the PACU in stable condition. All counts are correct. Case was clean. No complications were encountered throughout the procedure. Disposition: Patient will be discharged from PACU to home. Patient is weightbearing as tolerated and range of motion as tolerated to right knee. Appropriate postopera tive medications have been prescribed. Patient will follow-up in 10 to 14 days outpatient for suture removal and reevaluation. Luis Fonseca, DO
[2025-03-03] MEDS: CEFAZOLIN SODIUM/DEXTROSE,ISO 2 GM/50 ML PIGGYBACK IV (12:31)
[2025-03-03] MEDS: HYDROMORPHONE HCL 0.5 MG/0.5 ML SYRINGE IV (13:41)
== END 2025-03-03 15:00 | disposition home or self-care (01) ==
LOC: SURGOUT 11:31
PROVIDERS: PCP Internal Medicine; Visit Provider Physician Assistant
PROC: (CPT 1400; principal; 2025-03-03 12:30)
DX: M25.561 Pain in right knee (principal); M25.461 Effusion, right knee; M11.261 Other chondrocalcinosis, right knee; M65.961 Unspecified synovitis and tenosynovitis, right lower leg; S83.241A Other tear of medial meniscus, current injury, right knee, initial encounter; I10 Essential (primary) hypertension; F17.200 Nicotine dependence, unspecified, uncomplicated
CPT/HCPCS: 29881; 36415; 88304; J0690; J1100; J1171; J1885; J2250; J2405; J2704; J3010